=== PATIENT | female | born 1950 | race Caucasian/White ===

== ENCOUNTER → 2016-09-29 | Outpatient (CLI) | payer MEDICARE ==
--- NOTE | 2016-09-29 16:52 | REP ---
ABDOMINAL SERIES: Supine and erect views of the abdomen demonstrate no free air. There is no evidence of bowel obstruction. There is moderate fecal material in the right and transverse colon. I do not see significant small bowel dilatation. There are phleboliths in the pelvis. There are degenerative changes of the spine. An accompanying view of the chest demonstrates no acute infiltrate. The heart is normal in size. There is mild calcification of the thoracic aorta. IMPRESSION: Moderate fecal retention. Signed by Larry Cho MD 09/30/2016 05:10 P
== END ==
LOC: M LRY 11:58
PROVIDERS: ATTEND Family Medicine
DX: K59.01 Slow transit constipation (principal)
CPT/HCPCS: 74022; 80053; 84436; 84443; 84479; 85027; 85652; G0463

== ENCOUNTER → 2016-09-29 | Outpatient (REF) | payer MEDICARE ==
[2016-09-29 18:10] LABS: MEAN CORPUSCULAR HEMOGLOBIN 34.6 pg (27.0-33.0); MEAN CORPUSCULAR HGB CONC 34.4 g/dl (32.0-36.5); MEAN CORPUSCULAR VOLUME 100.5 fl (80.0-96.0); RED CELL DISTRIBUTION WIDTH 11.9 % (11.5-14.5); WHITE BLOOD COUNT 5.1 K/mm3 (4.0-10.0)
[2016-09-29 18:43] LABS: ALBUMIN 3.9 GM/DL (3.2-5.2); ALBUMIN/GLOBULIN RATIO 1.22 (1.00-1.93); ALKALINE PHOSPHATASE 69 U/L (45-117); ALT/SGPT 25 U/L (12-78); ANION GAP 9 MEQ/L (8-16); AST/SGOT 19 U/L (15-37); BILIRUBIN,TOTAL 0.2 MG/DL (0.2-1.0); BLOOD UREA NITROGEN 7 MG/DL (7-18); CARBON DIOXIDE LEVEL 31 MEQ/L (21-32); CHLORIDE LEVEL 102 MEQ/L (98-107); CREATININE FOR GFR 0.78 MG/DL (0.55-1.02); GLOMERULAR FILTRATION RATE > 60.0 (>45); GLUCOSE, FASTING 94 MG/DL (80-110); POTASSIUM SERUM 4.8 MEQ/L (3.5-5.1); SODIUM LEVEL 142 MEQ/L (136-145); T UPTAKE 34 % (30-39); THYROXINE (T4) 9.1 UG/DL (4.5-12.0); TOTAL PROTEIN 7.1 GM/DL (6.4-8.2)
== END ==
LOC: M SFHCLERA 11:43
PROVIDERS: ATTEND Family Medicine
DX: K59.01 Slow transit constipation (principal)

== ENCOUNTER → 2016-10-05 | Outpatient (REF) | payer MEDICARE ==
[2016-10-05 17:20] LABS: RETIC HEMOGLOBIN CONTENT CHr 34.2 PG (24-36); RETICULOCYTE % ADVIA2120 1.2 % (0.5-1.5)
[2016-10-05 17:33] LABS: VITAMIN B12 LEVEL 1499 PG/ML (247-911)
[2016-10-05 17:34] LABS: FOLATE > 24.0 NG/ML (>5.4)
== END ==
LOC: M SFHCLERA 10:12
PROVIDERS: ATTEND Family Medicine
DX: D75.89 Other specified diseases of blood and blood-forming organs (principal)

== ENCOUNTER → 2016-10-08 | Outpatient (REF) | payer MEDICARE ==
[2016-10-09 09:14] LABS: CONTROL LINE HPYORI INT CTR LINE PRESENT
== END ==
LOC: M SFHCLERA 11:29
PROVIDERS: ATTEND Family Medicine
DX: R10.9 Unspecified abdominal pain (principal)
CPT/HCPCS: 86677; G0463

== ENCOUNTER → 2016-10-14 | Outpatient (REF) | payer MEDICARE ==
[~2016-10-14] MED LIST: AMLO10TA2 PO; BAYE81TA7 PO; CALC1TAB21 PO; CARV12.5 PO; CLON1TAB PO; FOLI1TAB2 PO; LEVO25TA5 PO; LISI40TAB PO; MULTCAP8 PO; STOO100C PO; VENL150T PO; VENL1TAB35 PO; VITA100041 PO; VITA100L PO; ZETI10TA2 PO
[2016-10-14 16:58] LABS: ALBUMIN/GLOBULIN RATIO 1.25 (1.00-1.93); ALKALINE PHOSPHATASE 73 U/L (45-117); ALT/SGPT 31 U/L (12-78); AMYLASE 82 U/L (25-115); ANION GAP 8 MEQ/L (8-16); AST/SGOT 21 U/L (15-37); BILIRUBIN,TOTAL 0.2 MG/DL (0.2-1.0); BLOOD UREA NITROGEN 7 MG/DL (7-18); CALCIUM LEVEL 10.1 MG/DL (8.8-10.2); CARBON DIOXIDE LEVEL 31 MEQ/L (21-32); CHLORIDE LEVEL 101 MEQ/L (98-107); CREATININE FOR GFR 0.78 MG/DL (0.55-1.02); FREE T4 1.08 NG/DL (0.76-1.46); GLOMERULAR FILTRATION RATE > 60.0 (>45); GLUCOSE, FASTING 116 MG/DL (80-110); POTASSIUM SERUM 3.9 MEQ/L (3.5-5.1); SODIUM LEVEL 140 MEQ/L (136-145); TOTAL PROTEIN 7.2 GM/DL (6.4-8.2)
[2016-10-14 18:34] LABS: MEAN CORPUSCULAR HEMOGLOBIN 33.8 pg (27.0-33.0); MEAN CORPUSCULAR VOLUME 99.6 fl (80.0-96.0); RED CELL DISTRIBUTION WIDTH 11.9 % (11.5-14.5); WHITE BLOOD COUNT 4.6 K/mm3 (4.0-10.0)
[2016-10-14 21:35] LABS: EOSINOPHILS 5 % (0-5)
== END ==
LOC: M SFHCLERA 13:47
PROVIDERS: ATTEND Family Medicine
DX: R19.7 Diarrhea, unspecified (principal)
CPT/HCPCS: 80053; 81001; 82150; 83690; 84439; 84443; 85007; 85027; G0463

== ENCOUNTER → 2016-10-21 | Outpatient (CLI) | payer MEDICARE ==
--- NOTE | 2016-10-21 08:33 | REP ---
CT STUDY OF THE ABDOMEN AND PELVIS WITHOUT IV OR ORAL CONTRAST: HISTORY: Bilateral lower quadrant pain. No comparison CT studies. Comparison radiographs are from September 29, 2016. FINDINGS: Digital inventory planner radiograph demonstrates an unremarkable bowel gas pattern. The lung bases are essentially clear. The liver and the spleen are normal in size and homogeneous in texture. No adrenal lesion is seen on either side. Pancreas is normal in appearance. There is a descending duodenal diverticulum. No gallbladder abnormality is appreciated. There is no evidence of hydronephrosis or renal mass. No intrarenal calculus is observed on either side. No retroperitoneal mass or adenopathy is seen. Normal caliber aorta is seen with some vascular calcification. A normal appendix is seen retrocecal. Small and large intestinal bowel loops are normal in the abdomen and pelvis. No obstructive lesion is seen. No abdominal wall defect is observed. The patient is status post hysterectomy. No pelvic mass or adenopathy is seen. There is diverticulosis affecting the sigmoid colon. There is a pattern of mild mural thickening in the left colon involving the sigmoid rectosigmoid and rectum. This raises a question of enterocolitis. It is more diffuse than would be seen with diverticulitis. No bony destructive lesion is seen. There is evidence of an old healed fracture of the inferior pubic ramus on the right and there are osteoarthritic changes in the hips and degenerative spondylosis changes in the lumbar spine. There is evidence of significant central canal stenosis at L4-5 and L3-4. IMPRESSION: 1. Left colonic diverticulosis without CT evidence of diverticulitis. 2. Equivocal mural thickening diffusely in the distal colon question of inflammatory enterocolitis. 3. Degenerative spondylosis and central canal stenosis in the lumbar spine at L4-5 and L3-4.4. No urinary tract calculus or hydronephrosis seen. Signed by Javier Abraham MD 10/21/2016 09:40 A
--- NOTE | 2016-10-21 09:01 | REP ---
Thyroid sonography: History: Thyroid nodule. No comparison study. Findings: The thyroid isthmus is normal measuring 0.3 cm in thickness. Right lobe dimensions by ultrasound are 4.5 x 1.5 x 1.4 cm. Left lobe measures 4.1 x 1.1 x 1.4 cm. There is a solid 0.3 cm nodule in the right lobe and a solid 0.5 cm nodule in the left lobe of the gland. No other nodule is seen. No extra thyroid abnormality is seen. Impression: There is one very small subcentimeter nodule in each lobe of the thyroid. Otherwise negative. Signed by Javier Abraham MD 10/21/2016 09:40 A
--- NOTE | 2016-10-21 09:28 | REP ---
MRI LUMBAR SPINE WITHOUT CONTRAST: HISTORY: Back and bilateral hip pain. Decreased signal intensity on T2-weighted images is present in the lumbar intervertebral discs. The discs are decreased in height. These findings are consistent with disc degeneration. A diffuse disc bulge and small central disc protrusion are present at the L1-2 level. There is hypertrophy of the ligamenta flava and posterior articulating facets. These findings produce mild central canal stenosis. The L1 nerves exit the neural foramina without compression. A diffuse disc bulge is present at the L2-3 level. There is hypertrophy of the ligamenta flava and posterior articulating facets. These findings produce severe central canal stenosis. There is compression of the right L2 nerve in the neural foramen. The left L2 nerve exits the neural foramen without compression. A diffuse disc bulge is present at the L3-4 level. There is hypertrophy of the ligamenta flava and posterior articulating facets. These findings produce severe central canal stenosis. There is compression of the right L3 nerve in the neural foramen. The left L3 nerve exit the neural foramen without compression. A diffuse disc bulge is present at the L4-5 level. There is hypertrophy of the ligamenta flava and posterior articulating facets. There are 3 mm of grade 1 spondylolisthesis of L4 on 5. These findings produce severe central canal stenosis. There is compression of the left L4 nerve in the neural foramen. The right L4 nerve exits the neural foramen without compression. A diffuse disc bulge and small central disc protrusion are present at the L5-S1 level. There is minimal compression of the thecal sac. There is hypertrophy of the posterior articulating facets. There is compression of the left L5 nerve in the neural foramen. The right L5 nerve exits the neural foramen without compression. The conus medullaris is normal in appearance terminating at the level of the L1-2 intervertebral disc. Increased signal intensity on T2-weighted images is present in the end plates of the L1-S1 vertebral bodies. This represents degenerative change. There is scoliosis convex to the left. IMPRESSION: 1. Mild central canal stenosis at the L1-2 level secondary to disc bulge, disc protrusion, ligamentous and facet hypertrophy. 2. Severe central canal stenosis at the L2-3 and L3-4 levels secondary to disc bulge, ligamentous and facet hypertrophy. 3. Severe central canal stenosis at the L4-5 level secondary to disc bulge, ligamentous and facet hypertrophy and grade I spondylolisthesis. 4. Diffuse disc bulge and small central disc protrusion at the L5-S1 level with minimal thecal sac compression. Signed by Serafin Lawson MD 10/21/2016 09:43 A
== END ==
LOC: M RAD 07:14
PROVIDERS: ATTEND Family Medicine
DX: R10.9 Unspecified abdominal pain (principal); M47.27 Other spondylosis with radiculopathy, lumbosacral region; E04.1 Nontoxic single thyroid nodule; K57.30 Diverticulosis of large intestine without perforation or abscess without bleeding; M47.896 Other spondylosis, lumbar region; M48.06 Spinal stenosis, lumbar region; M51.27 Other intervertebral disc displacement, lumbosacral region

== ENCOUNTER → 2016-10-27 | Outpatient (CLI) | payer MEDICARE ==
[~2016-10-27] VITALS: Ht 157.5 cm; Wt 65.7 kg
[~2016-10-27] MED LIST changes: +LIDOCAINE 2% INJ 100 MG/5 ML SDV (FOR ANES.) As Ordered ONE; +NS 1,000 ML IV SCH; +PROPOFOL 200 MG/20 ML VIAL As Ordered ONE
--- NOTE | 2016-10-27 08:17 | ROOR ---
Patient Name: Juani Kilgore Procedure Date: 10/27/2016 8:03 AM Date of : 1950 Age: 66 Room: [facility] Gender: Female Note Status: Finalized Procedure: Upper GI endoscopy Indications: Surveillance for malignancy due to personal history of Hilliard's esophagus, Heartburn Providers: Kenneth FREEMAN MD Referring MD: Patrica HARTMAN MD Requesting Provider: Medicines: Sedation Required Anesthesia Staff Assistance Complications: No immediate complications. Procedure: Pre-Anesthesia Assessment: - The heart rate, respiratory rate, oxygen saturations, blood pressure, adequacy of pulmonary ventilation, and response to care were monitored throughout the procedure. The Endoscope was introduced through the mouth, and advanced to the second part of duodenum. The upper GI endoscopy was accomplished without difficulty. The patient tolerated the procedure well. Findings: The examined esophagus was normal. The Z-line was variable and was found 40 cm from the incisors. This was biopsied with a cold forceps for histology. The entire examined stomach was normal. The examined duodenum was normal. Biopsies for histology were taken with a cold forceps for evaluation of celiac disease. Impression: - Normal esophagus. Z-line variable, 40 cm from the incisors. Biopsied. - Normal stomach. - Normal examined duodenum. Biopsied. Recommendation: - Follow an antireflux regimen. - Telephone endoscopist for pathology results in 2 weeks. Kenneth Freeman MD Kenneth FREEMAN MD 10/27/2016 8:17:29 AM This report has been signed electronically. Number of Addenda: 0 Note Initiated On: 10/27/2016 8:03 AM Estimated Blood Loss: Estimated blood loss: none.
--- NOTE | 2016-10-27 08:35 | ROOR ---
Patient Name: Juani Kilgore Procedure Date: 10/27/2016 8:04 AM Date of : 1950 Age: 66 Room: [facility] Gender: Female Note Status: Finalized Procedure: Colonoscopy Indications: Generalized abdominal pain, Change in bowel habits Providers: Kenneth FREEMAN MD Referring MD: Patrica HARTMAN MD Requesting Provider: Medicines: Monitored Anesthesia Care Complications: No immediate complications. Procedure: Pre-Anesthesia Assessment: - The heart rate, respiratory rate, oxygen saturations, blood pressure, adequacy of pulmonary ventilation, and response to care were monitored throughout the procedure. The Colonoscope was introduced through the anus and advanced to 3 cm into the ileum. The colonoscopy was performed without difficulty. The patient tolerated the procedure well. The quality of the bowel preparation was good. Findings: The perianal and digital rectal examinations were normal. (Exam: Complete, Prep: Good or Excellent.) A 4 mm polyp was found in the sigmoid colon. The polyp was sessile. The polyp was removed with a cold snare. Resection and retrieval were complete. A few small-mouthed diverticula were found in the sigmoid colon. The exam was otherwise normal throughout the examined colon. The terminal ileum appeared normal. Biopsies for histology were taken with a cold forceps for evaluation of microscopic colitis. Impression: - (Exam: Complete, Prep: Good or Excellent.) - One 4 mm polyp in the sigmoid colon, removed with a cold snare. Resected and retrieved. - Mild diverticulosis in the sigmoid colon. - Small internal Hemorrhoids. - The colon was otherwise normal. - The examined portion of the ileum was normal. - Biopsies were taken with a cold forceps for evaluation of microscopic colitis. Recommendation: - Use fiber, for example Citrucel, Fibercon, Konsyl or Metamucil. - Telephone endoscopist for pathology results in 2 weeks. - If the pathology report reveals adenomatous tissue, then repeat the colonoscopy for surveillance in 5 years. Kenneth Fremean MD Kenneth FREEMAN MD 10/27/2016 8:34:52 AM This report has been signed electronically. Number of Addenda: 0 Note Initiated On: 10/27/2016 8:04 AM Estimated Blood Loss: Estimated blood loss: none.
[2016-10-27 09:10] VITALS: BP 109/69
== END ==
LOC: M OPP 07:10
PROVIDERS: ATTEND Internal Medicine Gastroenterology
DX: D12.5 Benign neoplasm of sigmoid colon (principal); K57.30 Diverticulosis of large intestine without perforation or abscess without bleeding; R10.84 Generalized abdominal pain; R19.4 Change in bowel habit; K22.70 Barrett's esophagus without dysplasia; K22.8 Other specified diseases of esophagus; R12 Heartburn; I10 Essential (primary) hypertension; E07.9 Disorder of thyroid, unspecified; F32.9 Major depressive disorder, single episode, unspecified; F41.9 Anxiety disorder, unspecified; F17.200 Nicotine dependence, unspecified, uncomplicated; Z88.8 Allergy status to other drugs, medicaments and biological substances; Z80.0 Family history of malignant neoplasm of digestive organs; Z80.1 Family history of malignant neoplasm of trachea, bronchus and lung; Z80.8 Family history of malignant neoplasm of other organs or systems; Z79.899 Other long term (current) drug therapy

== ENCOUNTER → 2016-11-16 | Outpatient (CLI) | payer MEDICARE ==
[~2016-11-16] MED LIST changes: -LIDOCAINE 2% INJ 100 MG/5 ML SDV (FOR ANES.) As Ordered ONE; -NS 1,000 ML IV SCH; -PROPOFOL 200 MG/20 ML VIAL As Ordered ONE
--- NOTE | 2016-11-16 16:02 | REP ---
Clinical: Pain. Technique: AP, lateral, bilateral oblique views of the left hand. Findings: Moderate osteoarthritic degenerative changes include osteophytosis, with subchondral sclerosis and joint space narrowing primarily involving the first, second, third distal interphalangeal joints. Less advanced degenerative changes noted throughout the remainder of the distal interphalangeal joints, interphalangeal joints and predominate the first and second carpometacarpal joints. No acute fracture or dislocation. Impression: Moderate osteoarthritic degenerative changes. Signed by Umesh Gonzales MD 11/16/2016 03:54 P
== END ==
LOC: M LRY 14:43
PROVIDERS: ATTEND Family Medicine
DX: M65.312 Trigger thumb, left thumb (principal); M19.042 Primary osteoarthritis, left hand
CPT/HCPCS: 73130; G0463

== ENCOUNTER → 2016-12-14 | Outpatient (REF) | payer MEDICARE ==
[2016-12-14 18:26] LABS: FREE T4 1.04 NG/DL (0.76-1.46)
[2016-12-14 19:43] LABS: MEAN CORPUSCULAR HEMOGLOBIN 33.4 pg (27.0-33.0); MEAN CORPUSCULAR HGB CONC 32.9 g/dl (32.0-36.5); MEAN CORPUSCULAR VOLUME 101.4 fl (80.0-96.0); WHITE BLOOD COUNT 6.9 K/mm3 (4.0-10.0)
[2016-12-15 09:15] LABS: FOLATE > 24.0 NG/ML; VITAMIN B12 LEVEL 901 PG/ML
== END ==
LOC: M SFHCLERA 14:04
PROVIDERS: ATTEND Family Medicine
DX: M79.1 Myalgia (principal)

== ENCOUNTER → 2016-12-14 | Outpatient (CLI) | payer MEDICARE ==
--- NOTE | 2016-12-14 15:41 | REP ---
Chest two views HISTORY: Weight loss Comparison: 09/29/2016 The lungs are clear. The heart is normal in size. The pulmonary vasculature is normal in appearance. The bony structure is intact. IMPRESSION: No acute disease. Signed by Serafin Lawson MD 12/14/2016 03:32 P
== END ==
LOC: M LRY 14:59
PROVIDERS: ATTEND Family Medicine
DX: R63.4 Abnormal weight loss (principal)
CPT/HCPCS: 71020; 82607; 82746; 84439; 84443; 85027; 85652; 86038; 86140; G0463

== ENCOUNTER → 2016-12-15 | Outpatient (REF) | payer MEDICARE | LOC: M SFHCLERA 07:56 | PROVIDERS: ATTEND Family Medicine | DX: D75.89 Other specified diseases of blood and blood-forming organs (principal); Z53.29 Procedure and treatment not carried out because of patient's decision for other reasons ==

== ENCOUNTER → 2016-12-17 | Outpatient (CLI) | payer MEDICARE ==
--- NOTE | 2016-12-22 14:23 | REPMRS ---
Patient History The patient states she has not had a clinical breast exam in over a year. Patient is postmenopausal. Family history of colorectal cancer in paternal grandmother. Digital Mammo Screening Bilat: December 17, 2016 - Exam #: [id number] Bilateral CC and MLO view(s) were taken. Technologist: Kim Evans, Technologist Prior study comparison: October 02, 2015, digital bilateral screening mammo, performed at [facility]. July 30, 2014, digital bilateral screening mammo, performed at [facility]. FINDINGS: There are scattered fibroglandular densities. There has been no change in the appearance of the mammogram from the prior studies. There is a mild amount of residual fibroglandular tissue which is fairly symmetric. There is no interval development of dominant mass, architectural distortion, or clustered microcalcification suggestive of malignancy. There are scattered, small, benign calcifications of doubtful clinical significance. Scattered lymph nodes are seen in the axillae. No significant changes when compared with prior studies. ASSESSMENT: BI-RADS/ACR category 2 mammogram. Benign finding(s). Recommendation Routine screening mammogram in 1 year (for women over age 40). This mammogram was interpreted with the aid of an FDA-approved computer-aided dectection system. A. Negative x-ray reports should not delay biopsy if a dominant or clinically suspicious mass is present. B. Four to eight percent of cancers are not identified by mammography. C. Adenosis and dense breast may obscure an underlying neoplasm. Electronically Signed By: Austin Lindsey MD 12/22/16 [id number]
== END ==
LOC: M RAD 11:17
PROVIDERS: ATTEND Family Medicine
DX: Z12.31 Encounter for screening mammogram for malignant neoplasm of breast (principal); Z78.0 Asymptomatic menopausal state; R92.8 Other abnormal and inconclusive findings on diagnostic imaging of breast

== ENCOUNTER → 2017-01-12 | Outpatient (CLI) | payer MEDICARE ==
--- NOTE | 2017-01-27 01:10 | ECWPNPC ---
PATIENT NAME: FRED MICHELLE : 1950 GENDER: FEMALE VISIT DATE: 01/12/2017 DISCHARGE DATE: 01/12/17 1321 VISIT LOCKED DATE TIME: PHYSICIAN: AMADOU STINSON RESOURCE: AMADOU STINSON REASON FOR APPOINTMENT 1. CHRONIC BODY PAIN HISTORY OF PRESENT ILLNESS NEW PATIENT CONSULT: WHEN DID YOUR PAIN FIRST START? . BRIEFLY DESCRIBE HOW YOUR PAIN STARTED? . HOW DOES YOUR PAIN CHANGE WITH TIME? . DOES YOUR PAIN AWAKEN YOU FROM SLEEP? . HOW MANY HOURS OF SLEEP DO YOU NORMALLY GET? . ANY DIAGNOSTIC TESTING? . FACILITY WHERE TESTS WERE DONE? ____. PAIN TREATMENT TREATMENT YES CANCER HAVE YOU EVER HAD ANY TYPE OF CANCER?NO NO. PAIN SCREENING: PATIENT HAS A COMPLAINT OF ACUTE OR CHRONIC PAIN :YES FALL RISK SCREENING: SCREENING :NO FALLS IN THE PAST YEAR NICOLAS INVENTORY: QUESTIONNAIRE ASSESSEDYES SCORE VALUE CALCULATED YES SCORE: DENIES SUICIDAL OR HOMICIDAL IDEATION TODAY'S VISIT: NOTES: REFERRED TODAY BY FOR CHRONIC GENERALIZED PAIN BY DR TERESA HARTMAN.HAD NO IMPROVEMENT WITH PHYSICAL THERAPY LEG EXERCISES MADE WORST..ONSET WAS ABOURT 3 YEARS AGO AFTER FX OF PELVIS ONE YEAR AGO BEGAN HAVING INTENSE DEEP PAIN IN LOW BACK AND PELVIS WITH N/T TO TOPS OF LEGS. NONE TO FEEET OR ANKLES. NEEDS TO LEAN ON CART AT STORE. FEELS WEAKNESS ALL OVER. NOTES PAIN IN HIPS WHEN STEPPING.DOES NOT FEEL STEADY - HOLDS ON. FELL ON 01/10/17 WHILE WALKING ON SIDEWALK.HIT RIGHT SIDE. HAS MORE RECENTLY NOTED PAIN IN SHOULDERS AND ELBOWS,. NOT SLEEPING WELL - 3 HOURS. IN NITE FEELS DIZZY AND WEAK. IS ATTENDING THE Y AND SWIMMING AND WALKING. HAD SEVERE CONSTIP IN JUL/AUG THENHAD 3-4 WEEKS OF GI BUG. HAS HAD OCC EPS LOC.[employer] NITE IS WORST. NO PREVIOUS BACK TROUBLE. CURRENT MEDICATIONS TAKING CARVEDILOL 12.5 MG TABLET ORALLY TWICE A DAY TAKING AMLODIPINE BESYLATE 10 MG TABLET 1 TABLET ORALLY ONCE A DAY TAKING CLONAZEPAM 1 MG TABLET 1 TABLET ORALLY TWICE A DAY TAKING VENLAFAXINE HCL ER 150 MG CAPSULE EXTENDED RELEASE 24 HOUR 1 CAPSULE WITH FOOD ORALLY ONCE A DAY TAKING ASPIRIN 81 MG TABLET CHEWABLE 1 TABLET ORALLY ONCE A DAY TAKING CALCIUM + D3 600-200 MG-UNIT TABLET ORALLY TAKING VITAMIN D3 1000 UNIT CAPSULE 1 CAPSULE ORALLY ONCE A DAY TAKING DULCOLAX STOOL SOFTENER 100 MG CAPSULE 1 CAPSULE NEEDED ORALLY ONCE A DAY TAKING MULTI FOR HER - TABLET ORALLY TAKING LISINOPRIL 40 MG TABLET 1 TABLET ORALLY ONCE A DAY TAKING ZETIA 10 MG TABLET 1 TABLET ORALLY ONCE A DAY TAKING OMEPRAZOLE 20 MG CAPSULE DELAYED RELEASE 1 CAPSULE ORALLY BID TAKING LOPERAMIDE HCL 2 MG TABLET 1 TABLET AFTER WATERY BOWEL MOVEMENT ORALLY MAY REPEAT IN 2 HOURS IF INITIAL DOSE WAS INEFFECTIVE TAKING CLONIDINE HCL 0.1 MG TABLET 1 TABLET AT BEDTIME ORALLY NEEDED? TAKING PROZAC 10 MG CAPSULE 1 CAPSULE IN THE MORNING ORALLY ONCE A DAY NOT-TAKING TIZANIDINE HCL 2 MG TABLET 1 TABLET NEEDED ORALLY BEFORE BEDTIME NOT-TAKING MIRALAX - POWDER 17 GRAMS ORALLY DAILY UNKNOWN LEVOTHYROXINE SODIUM 25 MCG TABLET 1 TABLET ON AN EMPTY STOMACH IN THE MORNING ORALLY ONCE A DAY MEDICATION LIST REVIEWED AND RECONCILED WITH THE PATIENT PAST MEDICAL HISTORY HTN (ETT 06/11 NEG) ANXIETY DEPRESSION HYPOTHYROID WITH 2 SMALL CYSTS HX OF C.DIFF TOBACCO ABUSE ETOH ABUSE IN REMISSION ALLERGIES STATINS (FOR ALLERGY USE ONLY): ACHY, PAINFUL MUSCLES: ALLERGY MAGNESIUM: DIARRHEA: ALLERGY TRAZODONE HCL: MUSCLE ACHES: ALLERGY SURGICAL HISTORY TONSILLECTOMY TUBAL LIGATION HYSTERECTOMY COLONOSCOPY/ENDOSCOPY FAMILY HISTORY FATHER: , DIAGNOSED WITH CANCER MOTHER: , DIAGNOSED WITH HEART DISEASE, OTHER PATERNAL GRAND FATHER: , DIAGNOSED WITH CANCER PATERNAL GRAND MOTHER: , DIAGNOSED WITH CANCER MATERNAL GRAND FATHER: , DIAGNOSED WITH HEART DISEASE MATERNAL GRAND MOTHER: , DIAGNOSED WITH CANCER 1 BROTHER(S) , 1 SISTER(S) . 1 SON(S) , 1 DAUGHTER(S) - HEALTHY. FATHER: SPINE CAMOTHER: ALZHEIMERSPATERNAL GF: BRAIN AND LUNG CAPATERNAL GM: COLON CAMATERNAL GM: CA UNKNOWNSISTER: ARTHRITISBROTHER: BRAIN AND LUNG CA. SOCIAL HISTORY GENERAL: TOBACCO USE ARE YOU A:CURRENT SMOKER HOW MANY CIGARETTES A DAY DO YOU SMOKE?6-10 HOW SOON AFTER YOU WAKE UP DO YOU SMOKE YOUR FIRST CIGARETTE?6-30 MIN HOW OFTEN DO YOU SMOKE CIGARETTES?EVERY DAY PATIENT COUNSELED ON THE DANGERS OF TOBACCO USE AND URGED TO QUIT:01/12/2017 ARE YOU INTERESTED IN QUITTING?THINKING ABOUT QUITTING COUNSELED THE PATIENT ON SMOKING CESSATION, EDUCATION [id number]/18/2017 ALCOHOL SCREENING POINTS0 INTERPRETATIONNEGATIVE CAFFEINE CAFFEINE USE?NO OCCUPATION: RETIRED. DIET: REGULAR. EXERCISE: WALKS, SWIMS. MARITAL STATUS: . OTHERS AT HOME: NONE. SI[facility] [id number] ZOROASTRIANISM EDUCATION LEVEL OF EDUCATION:NOT FINISHED [facility] PFS, CLERGY, PUBLIC HEALTH REFERRALS CLERGY REFERRAL NEEDED?NO WAS THE PROVIDER NOTIFIED OF ANY PERTINENT INFO?NO PFS REFERRAL NEEDED?NO PUBLIC HEALTH REFERRAL NEEDED?NO PATIENT: ____. HOSPITALIZATION/MAJOR DIAGNOSTIC PROCEDURE SEE SURGERIES FRACTURED PELVIS CHILDBIRTH REVIEW OF SYSTEMS CONSTITUTIONAL: ANY CHANGE IN YOUR MEDICAL CONDITION? NO . CHILLS NO . FEVER NO . INFECTION: DO YOU HAVE NEW INFECTIONS? NO . DO YOU HAVE HISTORY OF MRSA? NO . MUSCULOSKELETAL: ANY NEW PATTERNS OF PAIN OR NUMBNESS? NO . SYTEMIC LUPUS NO . FRACTURE FELL IN SNOW - FX PELVIS . GASTROENTEROLOGY: ANY NEW CHANGE IN BOWEL CONTROL? NO . BARRETTS ESOPHAGUS NO . CIRRHOSIS NO . HEPATITIS NO . LIVER FAILURE NO . ACID REFLUX NO . UNEXPLAINED WEIGHT LOSS HAS LOST 30 LBS WITH GI BUG. APPETITE NOT GOOD . GENITOURINARY: ANY NEW CHANGE IN BLADDER CONTROL? NO . IS THERE A CHANCE YOU COULD BE ? NO . HEMATOLOGY/LYMPH: DO YOU TAKE ANY BLOOD THINNERS? (FOR EXAMPLE- COUMADIN, PLAVIX, AGGRENOX, PLATEL, PRADAXA, OR XARELTO) NO . WHEN WAS YOUR LAST DOSE? DATE: TIME: . LOW PLATELET COUNT NO . SICKLE CELL DISEASE NO . VON WILLIEBRANDS NO . FACTOR V LEIDEN NO . THALLASEMIA NO . ANEMIA NO . EASY BRUISING NO . NEUROLOGY: HAVE YOU FALLEN IN THE PAST 6 MONTHS? NO . ANY NEW EXTREMITY NUMBNESS OR WEAKNESS? NO . HEAD INJURY NO . DEMENTIA NO . CEREBRAL PALSY NO . MULTIPLE SCLEROSIS NO . DIZZINESS NO . HEADACHE NO . STROKES NO . VERTIGO NO . CARDIOLOGY: DO YOU HAVE A PACEMAKER OR DEFIBRILLATOR? NO . ANGINA NO . HEART ATTACK NO . HEART SURGERY NO . CONGESTIVE HEART FAILURE/FLUID OVERLOAD NO . CHEST PAIN NO . HIGH BLOOD PRESSURE NO . IRREGULAR HEART BEAT NO . RESPIRATORY: HAVE YOU BEEN SICK IN THE PAST WEEK? NO . FEVER NO . FLU LIKE SYMPTOMS? NO . CPAP NO . BYPAP NO . ASTHMA NO . EMPHYSEMA NO . CHRONIC LUNG DISEASES NO . SHORTNESS OF BREATH ON EXERTION NO . DO YOU USE ANY TYPE OF TOBACCO (SMOKE, SMOKELESS, CHEW)? NO . COUGH NO . SNORING NO . INTEGUMENTARY: DO YOU HAVE ANY RASHES OR OPEN SORES? NO . ALLERGIC/IMMUNO: ARE YOU ALLERGIC TO SHELLFISH OR IV DYE? NO . ANY NEW ALLERGIES? NO . PSYCHIATRIC: DO YOU HAVE THOUGHTS OF HURTING YOURSELF OR SOMEONE ELSE? NO . ARE YOU ABUSED, NEGLECTED, OR IN AN UNSAFE ENVIRONMENT? NO . ENDOCRINOLOGY: ARE YOU DIABETIC? NO . THYROID DISORDER HYPOTHYROID ON REPLACEMENT - HAS 2 SMALL CYSTS . OTHER: DO YOU NEED ANY PRESCRIPTIONS? NO . IF YES, PLEASE LIST: ____ . ANY NEW PROBLEMS WITH YOUR MEDICATIONS? NO . WHEN DID YOU LAST EAT? ____ . WHEN DID YOU LAST DRINK? ____ . WHAT DID YOU LAST DRINK? ____ . NAME OF PERSON DRIVING YOU HOME? ____ . DO YOU HAVE ANY OTHER QUESTIONS OR CONCERNS NO . REVIEWED BY: PROVIDER: AMADOU MÁRQUEZ . VITAL SIGNS WT 141.4 LBS, HT 62.5 IN, BMI 25.45 INDEX, BP 115/69 MM HG, HR 73 /MIN, RR 16 /MIN, TEMP 97.7 F, OXYGEN SAT % 96%, NA INITIALS SC 11:46. EXAMINATION GENERAL EXAMINATION: GENERAL APPEARANCE:THIN, DUSKY COLORATION. PSYCHALERT , ORIENTED X 3 , HARD TO KEEP ON TARGET. HEENT:NORMOCEPHALIC, NO LYMPHADENOPATHY, NO THYROMEGLY. LUNGS:CLEAR TO AUSCULTATION BILATERALLY, NO WHEEZES, RALES OR RHONCHI. HEART:NORMAL S1S2, NO MURMURS, CLICK OR RUBS. ABDOMEN:SOFT, NON-TENDER/NON-DISTENDED, BOWEL SOUNDS PRESENT. MUSCULOSKELETAL:ABLE TO FLEX SPINE TO 30 DEGREES, , EXTEND TO 5 DEGREES, ROTATE WITH DIFF TO LEFT. SLR POSITIVE AT 30 DEGREES ON RIGHT, NEGATIVE ON LEFT. PAIN WITH PATRICKS TESTING ON RIGHT, NEGATIVE ON LEFT. LEG LENGTH EQUAL. , MUSCLE STRENGTH TESTING 5/5 BILATERAL UPPER AND LOWER EXTREMITIES. RISES QUICKLY TO AN UPRIGHT POSITION BUT UNSTEADY ON FEET. . NEUROLOGIC EXAM:DTR'S 2+ BILATERAL UPPER EXTREMITIES, 4+ BILATERAL LOWER EXTREMITIES WITH CLONUS. PLANTAR RESPONSE IS EQUIVICAL. NO SENSORY DEFICEIT ELICITED TO LIGHT TOUCH. DIAGNOSTIC TESTS REVIEWEDCT STUDY OF ABDOMEN AND PELVIS WITH AND WITHOUT IV CONTRAST DEMONSTRATED OLD HEALED FRACTURE OF INFERIOR PUBIC RAMUS, OSTEOARTHRITIC CHANGES IN THE HIPS AND DEGENERATIVE SPONDYLOSIS CHANGES IN THE LUMBAR SPINE. THERE IS EVIDENCE OF SIGNIFICANT CENTRAL CANAL STENOSIS AT. L4-5 AND L3-4.MRI OF LUMBAR SPINE COMPLETED 10/21/16 DEMONSTRATED MILD CENTRAL CANAL STENOSIS AT L1-2 LEVEL SECONDARY TO DISC BULGE, DISC PROTRUSION LIGAMENTOUS AND FACET HYPERTROPHY. 2. SEVERE CENTRAL CANAL STENOSIS AT L2-3 AND L3-4 LEVEL SECONDARY TO DISC BULGE LIGAMENTOUS AND FACET HYPERTROPHY. 3. SEVERE CENTRAL CANAL STENOSIS AT THE L4-5 LEVEL SECONDARY TO DISC BULGE LIGAMENTOUS AND FACET HYPERTROPHY AND GRADE 1 SPONDYLOLISTHESIS. 4. DIFFUSE DISC BULGE AND SMALL CENTRAL PROTRUSION AT THE L5-S1 LEVEL WITH MINIMAL THECAL SAC COMPRESSION. 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 RECOMMEND REMOVING ALL THROW RUGS. 2. RECOMMEND NIGHT LIGHTS 3. RECOMMEND WEARING RUBBER SOLED SHOES AND TO NOT GO BAREFOOT. 4.. ADVISED TO CHANGE POSITION SLOWLY FROM SUPINE TO STANDING TO AVOID DIZZINESS. , # 226 TOBACCO USE SCREENING/INTERVENTION: PATIENT CURRENTLY USED TOBACCO. WAS OFFERED SMOKING CESSATION FOR GUIDANCE IN QUITTING THROUGH THE [facility] QUITS PROGRAM AND [facility].BMI LESS THAN 22 WITH RECENT WEIGHT LOSS - IS FOLLOWING THIS CLOSELY WITH PCP. PROCEDURE CODES FA211 ESTABILISHED PATIENT [facility] FACILITY CHARGE G8706 BP SCR PRFRM RCMDD DEFIND SCR INTVL G8418 BMI < 22 CALCUATE W/FOLLOWUP G8730 PAIN ASSESS POS TOOL F/U PLAN DOC 3016F PT SCRND UNHLTHY [place] USE 1124F ACP DISCUSS-NO DSCNMKR DOCD 0518F FALL PLAN OF CARE DOCD G3670 DOC MEDS VERIFIED W/[place] 3288F FALL RISK ASSESSMENT DOCD 0954F PT TOBACCO SCREEN RCVD TLK DISPOSITION & COMMUNICATION FOLLOW UP AFTER INJECTION (REASON: CHECK AUTH JUNITO THERAPEUTIC LUMBAR FACET BLOCK) ELECTRONICALLY SIGNED BY ESDRAS ANDERSON ON 01/26/2017 AT 02:00 PM EDT DISCLAIMER : THIS IS A VISIT SUMMARY EXTRACTED FROM THE [employer] CHART. IT IS NOT A COPY OF THE [employer] PROGRESS NOTE. MTDD
== END ==
LOC: M PAIN 11:20
PROVIDERS: ATTEND Nurse Practitioner Family
DX: G89.29 Other chronic pain (principal); M48.06 Spinal stenosis, lumbar region; M12.88 Other specific arthropathies, not elsewhere classified, other specified site; M25.552 Pain in left hip; M25.551 Pain in right hip; M43.16 Spondylolisthesis, lumbar region; I10 Essential (primary) hypertension; F41.9 Anxiety disorder, unspecified; F32.9 Major depressive disorder, single episode, unspecified; E03.9 Hypothyroidism, unspecified; F17.200 Nicotine dependence, unspecified, uncomplicated; F10.21 Alcohol dependence, in remission; Z88.8 Allergy status to other drugs, medicaments and biological substances; Z79.82 Long term (current) use of aspirin; Z79.899 Other long term (current) drug therapy

== ENCOUNTER → 2017-01-25 | Outpatient (CLI) | payer MEDICARE ==
[~2017-01-25] MED LIST changes: +BUPIVACAINE HCL 0.25% 30 ML VIAL As Ordered ONE; +ISOVUE-M 300 61% 15ML VIAL (Q9967) As Ordered ONE; +LIDOCAINE 1% SDV INJ 30 ML VIAL As Ordered ONE; +TRIAMCINOLONE ACETONIDE SUSP 40 MG/ML VIAL (J3301) As Ordered ONE; +diazePAM 5 MG TAB As Ordered ONE; +oxyCODONE 5MG TAB As Ordered ONE
--- NOTE | 2017-01-25 17:10 | REP ---
FACET BLOCK: The images were reviewed with Dr. Cho. The patient has a history of low back pain. The portable C-Arm was provided in the OR for Dr. Arita for fluoroscopic guidance. Two intraoperative fluoroscopic spot films were obtained for needle placement verification for bilateral lumbar facet injection. The films are on the PACs system and are available for review. 11 seconds of fluoroscopy time was utilized for this procedure. Reviewed by NATTY Benjamin 01/26/2017 05:40 PEdited and Signed by Larry Cho MD 01/26/2017 07:42 P
--- NOTE | 2017-01-31 23:47 | ECWPNPC ---
PATIENT NAME: FRED MICHELLE : 1950 GENDER: FEMALE VISIT DATE: 01/25/2017 DISCHARGE DATE: 01/25/17 1419 VISIT LOCKED DATE TIME: PHYSICIAN: POOJA KENNEY RESOURCE: POOJA KENNEY REASON FOR APPOINTMENT 1. JUNITO THER FACET BLOCK LUMBAR HISTORY OF PRESENT ILLNESS HISTORY OF PRESENT ILLNESS: PAIN THE PATIENT DESCRIBES THE PAIN... FALL RISK SCREENING: SCREENING :NO FALLS IN THE PAST YEAR CURRENT MEDICATIONS TAKING CARVEDILOL 12.5 MG TABLET ORALLY TWICE A DAY, NOTES: 01/25/17599 TAKING AMLODIPINE BESYLATE 10 MG TABLET 1 TABLET ORALLY ONCE A DAY, NOTES: 01/25/17599 TAKING CLONAZEPAM 1 MG TABLET 1 TABLET ORALLY TWICE A DAY, NOTES: 01/25/17599 TAKING VENLAFAXINE HCL ER 150 MG CAPSULE EXTENDED RELEASE 24 HOUR 1 CAPSULE WITH FOOD ORALLY ONCE A DAY, NOTES: 01/25/17599 TAKING ASPIRIN 81 MG TABLET CHEWABLE 1 TABLET ORALLY ONCE A DAY, NOTES: 01/24/171929 TAKING CALCIUM + D3 600-200 MG-UNIT TABLET ORALLY , NOTES: 01/25/17599 TAKING VITAMIN D3 1000 UNIT CAPSULE 1 CAPSULE ORALLY ONCE A DAY, NOTES: 01/25/17599 TAKING MULTI FOR HER - TABLET ORALLY , NOTES: 01/25/17599 TAKING LISINOPRIL 40 MG TABLET 1 TABLET ORALLY ONCE A DAY, NOTES: 01/24/171929 TAKING ZETIA 10 MG TABLET 1 TABLET ORALLY ONCE A DAY, NOTES: 01/24/171929 TAKING CLONIDINE HCL 0.1 MG TABLET 1 TABLET AT BEDTIME ORALLY NEEDED?, NOTES: > 2 MONTHS TAKING PROZAC 10 MG CAPSULE 1 CAPSULE IN THE MORNING ORALLY ONCE A DAY, NOTES: 01/24/171929 TAKING BACLOFEN 10 MG TABLET 1 TABLET WITH FOOD OR MILK ORALLY BEFORE BEDTIME, NOTES: 01/24/17599 NOT-TAKING DULCOLAX STOOL SOFTENER 100 MG CAPSULE 1 CAPSULE NEEDED ORALLY ONCE A DAY, NOTES: > 2 MONTHS NOT-TAKING OMEPRAZOLE 20 MG CAPSULE DELAYED RELEASE 1 CAPSULE ORALLY BID NOT-TAKING LOPERAMIDE HCL 2 MG TABLET 1 TABLET AFTER WATERY BOWEL MOVEMENT ORALLY MAY REPEAT IN 2 HOURS IF INITIAL DOSE WAS INEFFECTIVE NOT-TAKING TIZANIDINE HCL 2 MG TABLET 1 TABLET NEEDED ORALLY BEFORE BEDTIME NOT-TAKING MIRALAX - POWDER 17 GRAMS ORALLY DAILY UNKNOWN LEVOTHYROXINE SODIUM 25 MCG TABLET 1 TABLET ON AN EMPTY STOMACH IN THE MORNING ORALLY ONCE A DAY MEDICATION LIST REVIEWED AND RECONCILED WITH THE PATIENT PAST MEDICAL HISTORY HTN (ETT 06/11 NEG) ANXIETY DEPRESSION HYPOTHYROID WITH 2 SMALL CYSTS HX OF C.DIFF TOBACCO ABUSE ETOH ABUSE IN REMISSION ALLERGIES STATINS (FOR ALLERGY USE ONLY): ACHY, PAINFUL MUSCLES: ALLERGY MAGNESIUM: DIARRHEA: ALLERGY TRAZODONE HCL: MUSCLE ACHES: ALLERGY REVIEW OF SYSTEMS CONSTITUTIONAL: ANY CHANGE IN YOUR MEDICAL CONDITION? NO . CHILLS NO . FEVER NO . INFECTION: DO YOU HAVE NEW INFECTIONS? NO . DO YOU HAVE HISTORY OF MRSA? NO . MUSCULOSKELETAL: ANY NEW PATTERNS OF PAIN OR NUMBNESS? NO . GASTROENTEROLOGY: ANY NEW CHANGE IN BOWEL CONTROL? NO . GENITOURINARY: ANY NEW CHANGE IN BLADDER CONTROL? NO . IS THERE A CHANCE YOU COULD BE ? NO . HEMATOLOGY/LYMPH: DO YOU TAKE ANY BLOOD THINNERS? (FOR EXAMPLE- COUMADIN, PLAVIX, AGGRENOX, PLATEL, PRADAXA, OR XARELTO) NO . WHEN WAS YOUR LAST DOSE? DATE: TIME: . NEUROLOGY: HAVE YOU FALLEN IN THE PAST 6 MONTHS? YES . ANY NEW EXTREMITY NUMBNESS OR WEAKNESS? NO . CARDIOLOGY: DO YOU HAVE A PACEMAKER OR DEFIBRILLATOR? NO . RESPIRATORY: HAVE YOU BEEN SICK IN THE PAST WEEK? NO . FEVER NO . FLU LIKE SYMPTOMS? NO . COUGH NO . INTEGUMENTARY: DO YOU HAVE ANY RASHES OR OPEN SORES? NO . ALLERGIC/IMMUNO: ARE YOU ALLERGIC TO SHELLFISH OR IV DYE? NO . ANY NEW ALLERGIES? NO . PSYCHIATRIC: DO YOU HAVE THOUGHTS OF HURTING YOURSELF OR SOMEONE ELSE? NO . ARE YOU ABUSED, NEGLECTED, OR IN AN UNSAFE ENVIRONMENT? NO . ENDOCRINOLOGY: ARE YOU DIABETIC? NO . OTHER: DO YOU NEED ANY PRESCRIPTIONS? NO . IF YES, PLEASE LIST: ____ . ANY NEW PROBLEMS WITH YOUR MEDICATIONS? NO . WHEN DID YOU LAST EAT? 01/24/17 2400____ . WHEN DID YOU LAST DRINK? ____01/25/17 0730 . WHAT DID YOU LAST DRINK? ____GINGER KERRI . NAME OF PERSON DRIVING YOU HOME? ____DARLENE . DO YOU HAVE ANY OTHER QUESTIONS OR CONCERNS NO . REVIEWED BY: PROVIDER: . VITAL SIGNS WT 138 LBS, HT 62.5 IN, BMI 24.84 INDEX, BP 119/71 MM HG, HR 63 /MIN, RR 16 /MIN, TEMP 96.6 F, OXYGEN SAT % 96%, SAFE IN ENV? (Y/N) YES, NA INITIALS AW 1102, REVIEWED BY: SHANTELLE. ASSESSMENTS SPONDYLOSIS WITHOUT MYELOPATHY OR RADICULOPATHY, LUMBAR REGION - M47.816 (PRIMARY) SPONDYLOSIS WITHOUT MYELOPATHY OR RADICULOPATHY, LUMBOSACRAL REGION - M47.817 PROCEDURES PN LUMBAR FACET BLOCK THERAPEUTIC PRE PROCEDURE DIAGNOSIS LUMBAR SPONDYLOSIS, LUMBOSACRAL SPONDYLOSIS POST PROCEDURE DIAGNOSIS LUMBAR SPONDYLOSIS, LUMBOSACRAL SPONDYLOSIS PROCEDURE BILATERAL L4-L5 AND BILATERAL L5-S1 LUMBAR FACET THERAPEUTIC BLOCK SURGEON DR. POOJA KENNEY [employer] NONE ANESTHESIA LOCAL PRE PROCEDURE NOTE THE PATIENT HAS A HISTORY OF CHRONIC LOW BACK PAIN. I EVALUATE THE PATIENT AND REVIEWED THE CHART. I WENT OVER THE RISKS, ALTERNATIVES, AND BENEFITS ASSOCIATED WITH THIS PROCEDURE. THE PATIENT WOULD LIKE TO PROCEED AND GIVE CONSENT TO PERFORMED THE PROCEDURE. THE PATIENT DENIES UNEXPLAINABLE WEIGHT LOSS, FEVER, CHILLS, OR NEW CHANGES IN URINARY OR BOWEL CONTROL DESCRIPTION OF PROCEDURE THE PATIENT WAS BROUGHT TO THE PROCEDURE ROOM AND PLACED IN THE PRONE POSITION. THE LUMBOSACRAL AREA WAS CLEANED WITH CHLORAPREP SOLUTION AND DRAPED ASEPTICALLY. THE PROCEDURE WAS DONE UNDER STERILE CONDITIONS. I CHECKED LATERALITY AND THE LEVEL WHERE THE PROCEDURE WAS GOING TO BE PERFORMED WITH THE PATIENT AND THE SUPPORTING STAFF AT THE MOMENT OF THE TIME OUT IN THE PROCEDURE ROOM. UNDER FLUOROSCOPIC GUIDANCE, THE TARGET POINT WAS SELECTED AT THE RIGHT AND LEFT L4-L5 AND RIGHT AND LEFT L5-S1 FACET JOINT. TARGET POINT WAS SELECTED AFTER LATERAL ROTATION AND TILT OF THE MAGNIFIER OF THE C-ARM. LIDOCAINE 0.5% WAS USED TO NUMB THE SKIN AND THE SUBCUTANEOUS TISSUE BELOW IT. SPINAL NEEDLES, 22-GAUGE, WERE ADVANCED UNDER FLUOROSCOPIC GUIDANCE AND FOLLOWING PATIENT FEEDBACK UNTIL THE TARGETS WERE TOUCHED. THE POSITION OF THE NEEDLES WAS VERIFIED WITH AP AND LATERAL VIEWS. AFTER PROPER POSITION OF THE NEEDLES WAS ACHIEVED, ISOVUE-M DYE 30% 0.1 ML WAS INJECTED SHOWING ADEQUATE SPREAD OF THE DYE. THEN A SOLUTION OF 1.9 ML OF BUPIVACAINE 0.125% OF KENALOG 10 MG WAS INJECTED AT EACH SITE. THERE WAS NO EVIDENCE OF BLOOD, PARESTHESIA OR CEREBROSPINAL FLUID DURING THE PROCEDURE. THE PATIENT WAS SENT TO THE RECOVERY ROOM. THE PATIENT WAS MOVING THE EXTREMITIES AND DOING WELL. THERE WAS NO COMPLICATION DURING THE PROCEDURE. FLUOROSCOPY TIME WAS 11 SECONDS POST PROCEDURE NOTE THE PATIENT WILL BE SEEN IN A FOLLOW UP IN THE NEXT FEW WEEKS. INSTRUCTIONS WERE GIVEN, QUESTIONS WERE ANSWERED, AND THE PATIENT EXPRESSED UNDERSTANDING AND AGREES WITH THE PLAN. I, TIERNEY STEINER, DOCUMENTED THE ABOVE INFORMATION ACTING A SCRIBE FOR DR. KENNEY. I HAVE REVIEWED THE ABOVE DOCUMENT, WRITTEN BY TIERNEY LIEBERMANIBCarolyn AND I VERIFY THAT IT IS [facility]NOST[facility] FACET BLOCK (PAIN)[id number] PROCEDURE CODES 58974 INJ PARAVERT F JNT L/S 1 LEV 14244 INJ PARAVERT F JNT L/S 2 LEV 6045F RADXPS IN END [id number] PXD DISPOSITION & COMMUNICATION FOLLOW UP 3 WEEKS ELECTRONICALLY SIGNED BY POOJA KENNEY MD ON 01/31/2017 AT 05:40 PM EDT DISCLAIMER : THIS IS A VISIT SUMMARY EXTRACTED FROM THE [employer] CHART. IT IS NOT A COPY OF THE [employer] PROGRESS NOTE. MTDMarcus
== END ==
LOC: M PAIN 11:00
PROVIDERS: ATTEND Anesthesiology
DX: G89.29 Other chronic pain (principal); M47.816 Spondylosis without myelopathy or radiculopathy, lumbar region; M47.817 Spondylosis without myelopathy or radiculopathy, lumbosacral region; F41.9 Anxiety disorder, unspecified; F32.9 Major depressive disorder, single episode, unspecified; E03.9 Hypothyroidism, unspecified; F17.200 Nicotine dependence, unspecified, uncomplicated; F10.21 Alcohol dependence, in remission; Z88.8 Allergy status to other drugs, medicaments and biological substances; Z79.82 Long term (current) use of aspirin; Z79.899 Other long term (current) drug therapy
CPT/HCPCS: 64493; 64494; J3301; Q9967

== ENCOUNTER → 2017-02-15 | Outpatient (CLI) | payer MEDICARE ==
[~2017-02-15] MED LIST changes: -BUPIVACAINE HCL 0.25% 30 ML VIAL As Ordered ONE; -ISOVUE-M 300 61% 15ML VIAL (Q9967) As Ordered ONE; -LIDOCAINE 1% SDV INJ 30 ML VIAL As Ordered ONE; -TRIAMCINOLONE ACETONIDE SUSP 40 MG/ML VIAL (J3301) As Ordered ONE; -diazePAM 5 MG TAB As Ordered ONE; -oxyCODONE 5MG TAB As Ordered ONE
--- NOTE | 2017-02-18 23:24 | ECWPNPC ---
PATIENT NAME: FRED MICHELLE : 1950 GENDER: FEMALE VISIT DATE: 02/15/2017 DISCHARGE DATE: 02/15/17 1221 VISIT LOCKED DATE TIME: PHYSICIAN: AMADOU STINSON RESOURCE: AMADOU STINSON REASON FOR APPOINTMENT 1. LOW BACK-POST INJ HISTORY OF PRESENT ILLNESS HISTORY OF PRESENT ILLNESS: PAIN THE PATIENT DESCRIBES THE PAIN... FALL RISK SCREENING: SCREENING :NO FALLS IN THE PAST YEAR TODAY'S VISIT: NOTES: RATES PAIN TODAY 6/10. IS NOT HAVING THE REALLY BAD PAIN IN LOW BACK, BUT NOW PAIN IS CONCENTRATED IN HIPS, LEFT GREATER THAN RIGHT WITH RADIATION TO LEFT GROIN. HAS IMPROVEMENT IN NUMBNESS IN LEGS BUT STILL SOME AT TOP OF THIGHS FROM TROCANTER TO GROIN. HAD FALL THIS MORNING AND FELT SHE COULDN'T MOVE FOR A BRIEF PERIOD, THEN WAS ABLE TO STAND.. CURRENT MEDICATIONS TAKING CARVEDILOL 12.5 MG TABLET ORALLY TWICE A DAY TAKING AMLODIPINE BESYLATE 10 MG TABLET 1 TABLET ORALLY ONCE A DAY TAKING CLONAZEPAM 1 MG TABLET 1 TABLET ORALLY TWICE A DAY TAKING VENLAFAXINE HCL ER 150 MG CAPSULE EXTENDED RELEASE 24 HOUR 1 CAPSULE WITH FOOD ORALLY ONCE A DAY TAKING ASPIRIN 81 MG TABLET CHEWABLE 1 TABLET ORALLY ONCE A DAY TAKING CALCIUM + D3 600-200 MG-UNIT TABLET ORALLY TAKING VITAMIN D3 1000 UNIT CAPSULE 1 CAPSULE ORALLY ONCE A DAY TAKING MULTI FOR HER - TABLET ORALLY TAKING LISINOPRIL 40 MG TABLET 1 TABLET ORALLY ONCE A DAY TAKING ZETIA 10 MG TABLET 1 TABLET ORALLY ONCE A DAY TAKING CLONIDINE HCL 0.1 MG TABLET 1 TABLET AT BEDTIME ORALLY NEEDED? NOT-TAKING PROZAC 10 MG CAPSULE 1 CAPSULE IN THE MORNING ORALLY ONCE A DAY NOT-TAKING BACLOFEN 10 MG TABLET 1 TABLET WITH FOOD OR MILK ORALLY BEFORE BEDTIME NOT-TAKING DULCOLAX STOOL SOFTENER 100 MG CAPSULE 1 CAPSULE NEEDED ORALLY ONCE A DAY, NOTES: > 2 MONTHS NOT-TAKING OMEPRAZOLE 20 MG CAPSULE DELAYED RELEASE 1 CAPSULE ORALLY BID NOT-TAKING LOPERAMIDE HCL 2 MG TABLET 1 TABLET AFTER WATERY BOWEL MOVEMENT ORALLY MAY REPEAT IN 2 HOURS IF INITIAL DOSE WAS INEFFECTIVE NOT-TAKING TIZANIDINE HCL 2 MG TABLET 1 TABLET NEEDED ORALLY BEFORE BEDTIME NOT-TAKING MIRALAX - POWDER 17 GRAMS ORALLY DAILY UNKNOWN LEVOTHYROXINE SODIUM 25 MCG TABLET 1 TABLET ON AN EMPTY STOMACH IN THE MORNING ORALLY ONCE A DAY MEDICATION LIST REVIEWED AND RECONCILED WITH THE PATIENT PAST MEDICAL HISTORY HTN (ETT 06/11 NEG) ANXIETY DEPRESSION HYPOTHYROID WITH 2 SMALL CYSTS HX OF C.DIFF TOBACCO ABUSE ETOH ABUSE IN REMISSION ALLERGIES STATINS (FOR ALLERGY USE ONLY): ACHY, PAINFUL MUSCLES: ALLERGY MAGNESIUM: DIARRHEA: ALLERGY TRAZODONE HCL: MUSCLE ACHES: ALLERGY SOCIAL HISTORY GENERAL: TOBACCO USE ARE YOU A:CURRENT SMOKER HOW MANY CIGARETTES A DAY DO YOU SMOKE?6-10 HOW SOON AFTER YOU WAKE UP DO YOU SMOKE YOUR FIRST CIGARETTE?6-30 MIN HOW OFTEN DO YOU SMOKE CIGARETTES?EVERY DAY PATIENT COUNSELED ON THE DANGERS OF TOBACCO USE AND URGED TO QUIT:02/15/2017 ARE YOU INTERESTED IN QUITTING?THINKING ABOUT QUITTING HAS PAMPHLETS AND OTHER MATERIAL AT HOME COUNSELED THE PATIENT ON SMOKING CESSATION, EDUCATION [id number]/22/2017 ALCOHOL SCREENING DID YOU HAVE A DRINK CONTAINING ALCOHOL IN THE PAST YEAR?NO POINTS0 INTERPRETATIONNEGATIVE CAFFEINE CAFFEINE USE?NO OCCUPATION: RETIRED. DIET: REGULAR. EXERCISE: WALKS, SWIMS. MARITAL STATUS: . OTHERS AT HOME: NONE. YARSANISM [id number] HINDU EDUCATION LEVEL OF EDUCATION:NOT FINISHED COLLEGE [facility] CLINIC PFS, CLERGY, PUBLIC HEALTH REFERRALS PFS REFERRAL NEEDED?NO CLERGY REFERRAL NEEDED?NO PUBLIC HEALTH REFERRAL NEEDED?NO WAS THE PROVIDER NOTIFIED OF ANY PERTINENT INFO?NO PATIENT: ____. REVIEW OF SYSTEMS CONSTITUTIONAL: ANY CHANGE IN YOUR MEDICAL CONDITION? NO . CHILLS NO . FEVER NO . INFECTION: DO YOU HAVE NEW INFECTIONS? NO . DO YOU HAVE HISTORY OF MRSA? NO . MUSCULOSKELETAL: ANY NEW PATTERNS OF PAIN OR NUMBNESS? NO . GASTROENTEROLOGY: ANY NEW CHANGE IN BOWEL CONTROL? NO . GENITOURINARY: ANY NEW CHANGE IN BLADDER CONTROL? NO . IS THERE A CHANCE YOU COULD BE ? NO . HEMATOLOGY/LYMPH: DO YOU TAKE ANY BLOOD THINNERS? (FOR EXAMPLE- COUMADIN, PLAVIX, AGGRENOX, PLATEL, PRADAXA, OR XARELTO) NO . WHEN WAS YOUR LAST DOSE? DATE: TIME: . NEUROLOGY: HAVE YOU FALLEN IN THE PAST 6 MONTHS? YES, 3 A.M. THIS MORNING. WAS LETTING DOG IN AND FELL, LANDING ON RIGHT SHOULDER AND KNEE. ALSO FELL EASTER DAY--WAS WALKING AND TRIPPED ON SIDEWALK--SKINNED RIGHT KNEE . ANY NEW EXTREMITY NUMBNESS OR WEAKNESS? NO . CARDIOLOGY: DO YOU HAVE A PACEMAKER OR DEFIBRILLATOR? NO . RESPIRATORY: HAVE YOU BEEN SICK IN THE PAST WEEK? NO . FEVER NO . FLU LIKE SYMPTOMS? NO . COUGH NO . INTEGUMENTARY: DO YOU HAVE ANY RASHES OR OPEN SORES? NO . ALLERGIC/IMMUNO: ARE YOU ALLERGIC TO SHELLFISH OR IV DYE? NO . ANY NEW ALLERGIES? NO . PSYCHIATRIC: DO YOU HAVE THOUGHTS OF HURTING YOURSELF OR SOMEONE ELSE? NO . ARE YOU ABUSED, NEGLECTED, OR IN AN UNSAFE ENVIRONMENT? NO . ENDOCRINOLOGY: ARE YOU DIABETIC? NO . OTHER: DO YOU NEED ANY PRESCRIPTIONS? NO . IF YES, PLEASE LIST: ____ . ANY NEW PROBLEMS WITH YOUR MEDICATIONS? NO . WHEN DID YOU LAST EAT? ____ . WHEN DID YOU LAST DRINK? ____ . WHAT DID YOU LAST DRINK? ____ . NAME OF PERSON DRIVING YOU HOME? ____ . DO YOU HAVE ANY OTHER QUESTIONS OR CONCERNS NO . REVIEWED BY: PROVIDER: AMADOU MÁRQUEZ . VITAL SIGNS WT 137 LBS, HT 62.5 IN, BMI 24.66 INDEX, BP 107/64 MM HG, HR 72 /MIN, RR 18 /MIN, TEMP 97.4 F, OXYGEN SAT % 98, REVIEWED BY: NL. EXAMINATION GENERAL EXAMINATION: PSYCHALERT , ORIENTED X 3 , APPEARS UNCOMFORTABLE. LUNGS:CLEAR TO AUSCULTATION BILATERALLY. HEART:HEART RATE REGULAR. MUSCULOSKELETAL:MUSCLE STRENGTH TESTING 5/5 BILATERAL LOWER EXTREMITIES. POINT TENDERNESS OVER SACRUM AND COCCYX AREA. POINT TENDERNESS OVER TROCANTERIC REGIONS RIGHT GREATER THAN LEFT WITH INTENSE PAIN IN RIGHT GROIN WITH INTERNAL HIP ROTATION. ABLE TO RISE TO STANDING POSITION. GAIT ANTALGIC.. 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 EXERCISE TOLERATED. CARRY PHONE WHEN WALKING. PAIN IN LEFT HIP [facility] MRI HIP WITHOUT [id number],SUSAN M 02/15/2017 12:13:42 PM > DEGENERATIVE CHANGES - LOSS OF RANGE, FREQ FALLS PAIN IN RIGHT HIP [facility] MRI HIP WITHOUT [id number],SUSAN M 02/15/2017 12:13:42 PM > DEGENERATIVE CHANGES - LOSS OF RANGE, FREQ FALLS PROCEDURE CODES FA211 ESTABILISHED PATIENT [facility] FACILITY CHARGE G8730 PAIN ASSESS POS TOOL F/U PLAN DOC G8427 DOC MEDS VERIFIED W/PT OR RE DISPOSITION & COMMUNICATION FOLLOW UP 1 WEEK AFTER MRI (REASON: CHECK AUTH FOR MRI OF HIPS) ELECTRONICALLY SIGNED BY ESDRAS ANDERSON ON 02/18/2017 AT 08:59 AM EDT DISCLAIMER : THIS IS A VISIT SUMMARY EXTRACTED FROM THE [facility] CHART. IT IS NOT A COPY OF THE [employer] PROGRESS NOTE. MTDD
== END ==
LOC: M PAIN 11:00
PROVIDERS: ATTEND Nurse Practitioner Family
DX: G89.29 Other chronic pain (principal); M48.06 Spinal stenosis, lumbar region; M12.88 Other specific arthropathies, not elsewhere classified, other specified site; M25.552 Pain in left hip; M25.551 Pain in right hip; M43.16 Spondylolisthesis, lumbar region; I10 Essential (primary) hypertension; E78.5 Hyperlipidemia, unspecified; F41.9 Anxiety disorder, unspecified; F32.9 Major depressive disorder, single episode, unspecified; E03.9 Hypothyroidism, unspecified; F17.210 Nicotine dependence, cigarettes, uncomplicated; F10.21 Alcohol dependence, in remission; Z88.8 Allergy status to other drugs, medicaments and biological substances; Z79.82 Long term (current) use of aspirin; Z79.899 Other long term (current) drug therapy

== ENCOUNTER → 2017-02-18 | Outpatient (REF) | payer MEDICARE ==
[2017-02-18 16:51] LABS: BASO % 0.3 % (0.0-1.0); EOS # 0.2 K/mm3 (0.0-0.50); EOS % 2.2 % (0.0-3.0); LARGE UNSTAINED CELL # 0.1 K/mm3 (0.0-0.4); LARGE UNSTAINED CELL % 1.5 % (0.0-4.0); LYMPH # 1.5 K/mm3 (1.5-4.5); LYMPH % 16.6 % (24.0-44.0); MEAN CORPUSCULAR HEMOGLOBIN 34.7 pg (27.0-33.0); MEAN CORPUSCULAR HGB CONC 33.7 g/dl (32.0-36.5); MEAN CORPUSCULAR VOLUME 102.9 fl (80.0-96.0); MONO # 0.4 K/mm3 (0.0-0.8); MONO % 4.5 % (0.0-5.0); NEUTROPHILS # 6.6 K/mm3 (1.8-7.7); NEUTROPHILS % 74.9 % (36.0-66.0); PLATELET COUNT, AUTOMATED 405 k/mm3 (150-450); RED CELL DISTRIBUTION WIDTH 11.9 % (11.5-14.5); WHITE BLOOD COUNT 8.8 K/mm3 (4.0-10.0)
[2017-02-18 17:18] LABS: ALBUMIN 4.2 GM/DL (3.2-5.2); ALBUMIN/GLOBULIN RATIO 1.17 (1.00-1.93); ALKALINE PHOSPHATASE 70 U/L (45-117); ALT/SGPT 31 U/L (12-78); ANION GAP 5 MEQ/L (8-16); AST/SGOT 20 U/L (15-37); BILIRUBIN,TOTAL 0.4 MG/DL (0.2-1.0); BLOOD UREA NITROGEN 9 MG/DL (7-18); CALCIUM LEVEL 11.1 MG/DL (8.8-10.2); CARBON DIOXIDE LEVEL 31 MEQ/L (21-32); CHLORIDE LEVEL 101 MEQ/L (98-107); CREATININE FOR GFR 0.82 MG/DL (0.55-1.02); GLOMERULAR FILTRATION RATE > 60.0 (>45); GLUCOSE, FASTING 121 MG/DL (80-110); SODIUM LEVEL 137 MEQ/L (136-145); TOTAL PROTEIN 7.8 GM/DL (6.4-8.2)
[2017-02-18 17:20] LABS: POTASSIUM SERUM 5.4 MEQ/L (3.5-5.1)
== END ==
LOC: M SFHCLERA 10:33
PROVIDERS: ATTEND Physician Assistant
DX: R53.81 Other malaise (principal)
CPT/HCPCS: 80053; 85025; G0463

== ENCOUNTER → 2017-02-23 | Outpatient (CLI) | payer MEDICARE ==
--- NOTE | 2017-02-24 10:03 | REP ---
MRI BILATERAL HIPS: TECHNIQUE: Coronal T1, STIR through the pelvis, T2 fat sat, bilateral hip all three planes, axial oblique proton density fat sat bilateral hip. There is arthritic change of a relatively mildly degree at the sacroiliac joints with mild subchondral marrow edema along both of these joints. There is also some mild degenerative change at the pubic symphysis with mild subchondral marrow edema. No occult fracture is seen. There is no evidence of avascular necrosis. Both the right and left labrum demonstrate diffuse fraying. Some mild increased signal is seen along the greater trochanters bilaterally suggesting very mild bilateral greater trochanteric tendinobursitis. No paralabral cyst is seen. Other soft tissue structures surrounding the hips are unremarkable. There is mild diffuse chondromalacia at the hip joints. Within the visualized portions of the pelvis no adenopathy or mass is seen. There does appears to be a tiny filling defect in the base of the bladder 5 mm in diameter probably representing a stone or polyp. IMPRESSION: Arthritic changes as discussed in detail above involving the sacroiliac joints, pubic symphysis and hip joints There is diffuse labral fraying bilaterally. There is minor bilateral greater trochanteric tendinobursitis. 5 mm filling defect in the base of the bladder represents a stone or polyp. Signed by Larry Cho MD 02/25/2017 07:03 P
== END ==
LOC: M RAD 11:42
PROVIDERS: ATTEND Nurse Practitioner Family
DX: M25.552 Pain in left hip (principal); M25.551 Pain in right hip

== ENCOUNTER → 2017-03-02 | Outpatient (CLI) | payer MEDICARE ==
--- NOTE | 2017-03-19 00:27 | ECWPNPC ---
PATIENT NAME: FRED MICHELLE : 1950 GENDER: FEMALE VISIT DATE: 03/02/2017 DISCHARGE DATE: 03/02/17 1618 VISIT LOCKED DATE TIME: PHYSICIAN: AMADOU STINSON RESOURCE: AMADOU STINSON REASON FOR APPOINTMENT 1. REVIEW MRI HISTORY OF PRESENT ILLNESS HISTORY OF PRESENT ILLNESS: PAIN THE PATIENT DESCRIBES THE PAIN... FALL RISK SCREENING: SCREENING :NO FALLS IN THE PAST YEAR TODAY'S VISIT: NOTES: RATES PAIN TODAY 6/10. NOTES THE WORST OF THE PAIN IS IN THE HIPS, LEFT GREATER THAN RIGHT AND SHE IS HAVING TROUBLE FINDING A COMFORTABLE POSITIONAND THAT SHE CAN'T SLEEP OF FUNCTION. STATES "I DON'T HOW MUCH LONGER I CAN GO ON WITH THIS". DID SEE HER MENTAL HEALTH PROVIDER/COUNSELOR AND PROZAC WAS CHANGED TO CYMBALTA AND SHE IS NOTING SOME IMPROVEMENT IN MOOD , SLEEP AND SLIGHTLY WITH PAIN IN BACK. DID COMPLETE MRI OF HIPS.. CURRENT MEDICATIONS TAKING CARVEDILOL 12.5 MG TABLET ORALLY TWICE A DAY TAKING AMLODIPINE BESYLATE 10 MG TABLET 1 TABLET ORALLY ONCE A DAY TAKING CLONAZEPAM 1 MG TABLET 1 TABLET ORALLY TWICE A DAY TAKING ASPIRIN 81 MG TABLET CHEWABLE 1 TABLET ORALLY ONCE A DAY TAKING CALCIUM + D3 600-200 MG-UNIT TABLET 1 TAB ORALLY BID TAKING VITAMIN D3 1000 UNIT CAPSULE 1 CAPSULE ORALLY BID TAKING MULTI FOR HER - TABLET 1 TAB ORALLY DAILY TAKING LISINOPRIL 40 MG TABLET 1 TABLET ORALLY ONCE A DAY TAKING ZETIA 10 MG TABLET 1 TABLET ORALLY ONCE A DAY TAKING CLONIDINE HCL 0.1 MG TABLET 1 TABLET AT BEDTIME ORALLY NEEDED? TAKING CYMBALTA 60 MG CAPSULE DELAYED RELEASE PARTICLES 1 CAPSULE ORALLY ONCE A DAY NOT-TAKING VENLAFAXINE HCL ER 150 MG CAPSULE EXTENDED RELEASE 24 HOUR 1 CAPSULE WITH FOOD ORALLY ONCE A DAY NOT-TAKING BETAMETHASONE DIPROPIONATE 0.05 % LOTION 1 APPLICATION TO ANTERIOR CHEST EXTERNALLY TWICE A DAY NOT-TAKING PROZAC 10 MG CAPSULE 1 CAPSULE IN THE MORNING ORALLY ONCE A DAY NOT-TAKING BACLOFEN 10 MG TABLET 1 TABLET WITH FOOD OR MILK ORALLY BEFORE BEDTIME NOT-TAKING DULCOLAX STOOL SOFTENER 100 MG CAPSULE 1 CAPSULE NEEDED ORALLY ONCE A DAY, NOTES: > 2 MONTHS NOT-TAKING OMEPRAZOLE 20 MG CAPSULE DELAYED RELEASE 1 CAPSULE ORALLY BID NOT-TAKING LOPERAMIDE HCL 2 MG TABLET 1 TABLET AFTER WATERY BOWEL MOVEMENT ORALLY MAY REPEAT IN 2 HOURS IF INITIAL DOSE WAS INEFFECTIVE NOT-TAKING TIZANIDINE HCL 2 MG TABLET 1 TABLET NEEDED ORALLY BEFORE BEDTIME NOT-TAKING MIRALAX - POWDER 17 GRAMS ORALLY DAILY UNKNOWN LEVOTHYROXINE SODIUM 25 MCG TABLET 1 TABLET ON AN EMPTY STOMACH IN THE MORNING ORALLY ONCE A DAY MEDICATION LIST REVIEWED AND RECONCILED WITH THE PATIENT PAST MEDICAL HISTORY HTN (ETT 06/11 NEG) ANXIETY DEPRESSION HYPOTHYROID WITH 2 SMALL CYSTS HX OF C.DIFF TOBACCO ABUSE ETOH ABUSE IN REMISSION ALLERGIES STATINS (FOR ALLERGY USE ONLY): ACHY, PAINFUL MUSCLES: ALLERGY MAGNESIUM: DIARRHEA: ALLERGY TRAZODONE HCL: MUSCLE ACHES: ALLERGY REVIEW OF SYSTEMS REVIEWED BY: PROVIDER: AMADOU MÁRQUEZ . CONSTITUTIONAL: ANY CHANGE IN YOUR MEDICAL CONDITION? NO . CHILLS NO . FEVER NO . INFECTION: DO YOU HAVE NEW INFECTIONS? NO . DO YOU HAVE HISTORY OF MRSA? NO . MUSCULOSKELETAL: ANY NEW PATTERNS OF PAIN OR NUMBNESS? YES, INTERMITTENT NUMBNESS DOWN BOTH LEGS, MORE ON THE LEFT . GASTROENTEROLOGY: GENERAL GENERAL GI UPSET - REPORTS HISTORY OF GI UPCER AND DIVERTICULITIS . ANY NEW CHANGE IN BOWEL CONTROL? YES, CONSTIPATION AT TIMES . GENITOURINARY: ANY NEW CHANGE IN BLADDER CONTROL? NO . IS THERE A CHANCE YOU COULD BE ? NO . HEMATOLOGY/LYMPH: DO YOU TAKE ANY BLOOD THINNERS? (FOR EXAMPLE- COUMADIN, PLAVIX, AGGRENOX, PLATEL, PRADAXA, OR XARELTO) NO . WHEN WAS YOUR LAST DOSE? DATE: TIME: . NEUROLOGY: HAVE YOU FALLEN IN THE PAST 6 MONTHS? NO . ANY NEW EXTREMITY NUMBNESS OR WEAKNESS? NO . CARDIOLOGY: DO YOU HAVE A PACEMAKER OR DEFIBRILLATOR? NO . CHEST PAIN PATIENT DENIES . RESPIRATORY: HAVE YOU BEEN SICK IN THE PAST WEEK? NO . FEVER NO . FLU LIKE SYMPTOMS? NO . COUGH NO . INTEGUMENTARY: DO YOU HAVE ANY RASHES OR OPEN SORES? NO . ALLERGIC/IMMUNO: ARE YOU ALLERGIC TO SHELLFISH OR IV DYE? NO . ANY NEW ALLERGIES? NO . PSYCHIATRIC: DO YOU HAVE THOUGHTS OF HURTING YOURSELF OR SOMEONE ELSE? NO . ARE YOU ABUSED, NEGLECTED, OR IN AN UNSAFE ENVIRONMENT? NO . ENDOCRINOLOGY: ARE YOU DIABETIC? NO . OTHER: DO YOU NEED ANY PRESCRIPTIONS? NO . IF YES, PLEASE LIST: ____ . ANY NEW PROBLEMS WITH YOUR MEDICATIONS? NO . DO YOU HAVE ANY OTHER QUESTIONS OR CONCERNS NO . VITAL SIGNS WT 138.0 LBS, HT 62.5 IN, BMI 24.84 INDEX, BP 108/62 MM HG, HR 88 /MIN, RR 16 /MIN, TEMP 96.6 F, OXYGEN SAT % 96%, NA INITIALS TL 1519, REVIEWED BY: TAJ. EXAMINATION GENERAL EXAMINATION: PSYCHALERT , ORIENTED X 3 , APPEARS UNCOMFORTABLE. LUNGS:CLEAR TO AUSCULTATION BILATERALLY. HEART:HEART RATE REGULAR. MUSCULOSKELETAL:MUSCLE STRENGTH TESTING 01/29 BILATERAL LOWER EXTREMITIES. POINT TENDERNESS OVER SACRUM AND COCCYX AREA. EXQUISITE TENDERNESS OVER TROCANTERIC REGIONS LEFT GREATER THAN RIGHT WITH INTENSE PAIN IN LEFT GROIN WITH INTERNAL HIP ROTATION. ABLE TO RISE TO STANDING POSITION. GAIT ANTALGIC.. NEUROLOGIC EXAM:SOME SENSORY DECREASE NOTED OVER BILATERAL LLATERAL THIGH REGIONS.. DIAGNOSTIC TESTS REVIEWEDMRI OF BILATERAL HIPS AND PELVIS COMPLETED ON 02/23/17 DEMONSTRATES ARTHRITIC CHANGES INVOLVING THE SACRALILIAC JOINTS, PUBIS SYMPHYSIS AND HIP JOINTS. THERE IS DIFFUSE LABRAL FRAYING BILATERALLY. THERE IS MINOR TROCANTERIC TENDINOBURSITIS. . 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 LUMBAR SPINAL STENOSIS START MELOXICAM TABLET, 15 MG, 1 TABLET, ORALLY, ONCE A DAY, 15 DAYS, 15 TABLET, REFILLS 0 START NORCO TABLET, 5-325 MG, 1 TABLET NEEDED, ORALLY, BEFORE BEDTIME, 10 DAY(S), 10, REFILLS 0 ARTHROCENTESIS INJECTION LARGE JOINT ([id number])AMADOU STINSON 03/02/2017 3:55:34 PM > LEFT TROCANTERIC BURSA INJECTION NOTES: BIOFREEZE OR FAVORITE MUSCLE RUB TO HIPS. PROCEDURE CODES FA211 ESTABILISHED PATIENT [facility] FACILITY CHARGE G8730 PAIN ASSESS POS TOOL F/U PLAN DOC G8427 DOC MEDS VERIFIED W/PT OR RE DISPOSITION & COMMUNICATION FOLLOW UP SCHEDULE FOR INJECTION CORINNE (REASON: REQUEST AUTH FOR LEFT HIP BURSA INJECTION, TO BE FOLLLOWED AFTER BY RIGHT HIP. D) ELECTRONICALLY SIGNED BY ESDRAS ANDERSON ON 03/18/2017 AT 06:32 PM EDT DISCLAIMER : THIS IS A VISIT SUMMARY EXTRACTED FROM THE [employer] CHART. IT IS NOT A COPY OF THE [employer] PROGRESS NOTE. TRACEY
== END ==
LOC: M PAIN 15:00
PROVIDERS: ATTEND Nurse Practitioner Family
DX: G89.29 Other chronic pain (principal); M25.552 Pain in left hip; M48.06 Spinal stenosis, lumbar region; M12.88 Other specific arthropathies, not elsewhere classified, other specified site; M25.551 Pain in right hip; M43.16 Spondylolisthesis, lumbar region; I10 Essential (primary) hypertension; E78.5 Hyperlipidemia, unspecified; F41.9 Anxiety disorder, unspecified; F32.9 Major depressive disorder, single episode, unspecified; E03.9 Hypothyroidism, unspecified; F17.200 Nicotine dependence, unspecified, uncomplicated; F10.21 Alcohol dependence, in remission; K59.01 Slow transit constipation; Z88.8 Allergy status to other drugs, medicaments and biological substances; Z79.82 Long term (current) use of aspirin; Z79.899 Other long term (current) drug therapy

== ENCOUNTER → 2017-03-11 | Outpatient (CLI) | payer MEDICARE ==
[~2017-03-11] MED LIST changes: +BUPIVACAINE HCL 0.25% 10 ML VIAL As Ordered ONE; +BUPIVACAINE HCL 0.25% 30 ML VIAL As Ordered ONE; +ISOVUE-M 300 61% 15ML VIAL (Q9967) As Ordered ONE; +LIDOCAINE 1% SDV INJ 30 ML VIAL As Ordered ONE; +TRIAMCINOLONE ACETONIDE SUSP 40 MG/ML VIAL (J3301) As Ordered ONE; +diazePAM 5 MG TAB As Ordered ONE; +oxyCODONE 5MG TAB As Ordered ONE
--- NOTE | 2017-03-11 12:49 | REP ---
FLUOROSCOPIC GUIDANCE: The images were reviewed with Dr. Cho. The patient has a history of bilateral hip pain. The portable C-arm is provided in the OR for Dr. Arita for fluoroscopic guidance. Six intraoperative fluoroscopic spot films are obtained for needle placement verification for bilateral hip injection. The films are on the PACS system and are available for review. 19 seconds of fluoroscopy time was utilized for this procedure. Reviewed by NATTY Benjamin 03/11/2017 03:20 PEdited and Signed by Larry Cho MD 03/11/2017 04:33 P
--- NOTE | 2017-03-19 00:06 | ECWPNPC ---
PATIENT NAME: FRED MICHELLE : 1950 GENDER: FEMALE VISIT DATE: 03/11/2017 DISCHARGE DATE: 03/11/17 1140 VISIT LOCKED DATE TIME: PHYSICIAN: POOJA KENNEY RESOURCE: POOJA KENNEY REASON FOR APPOINTMENT 1. R LEFT HIP BURSA INJECTION, TO BE FOLLLOWED AFTER BY RIGHT HIP. HISTORY OF PRESENT ILLNESS HISTORY OF PRESENT ILLNESS: PAIN THE PATIENT DESCRIBES THE PAIN... FALL RISK SCREENING: SCREENING :NO FALLS IN THE PAST YEAR CURRENT MEDICATIONS TAKING CARVEDILOL 12.5 MG TABLET ORALLY TWICE A DAY, NOTES: 03/11/17599 TAKING AMLODIPINE BESYLATE 10 MG TABLET 1 TABLET ORALLY ONCE A DAY, NOTES: 03/11/17599 TAKING CLONAZEPAM 1 MG TABLET 1 TABLET ORALLY TWICE A DAY, NOTES: 03/11/17599 TAKING ASPIRIN 81 MG TABLET CHEWABLE 1 TABLET ORALLY ONCE A DAY, NOTES: 03/10/172099 TAKING CALCIUM + D3 600-200 MG-UNIT TABLET 1 TAB ORALLY BID, NOTES: 03/11/17599 TAKING VITAMIN D3 1000 UNIT CAPSULE 1 CAPSULE ORALLY BID, NOTES: 03/11/17599 TAKING MULTI FOR HER - TABLET 1 TAB ORALLY DAILY, NOTES: 03/11/17599 TAKING LISINOPRIL 40 MG TABLET 1 TABLET ORALLY ONCE A DAY, NOTES: 03/10/172099 TAKING ZETIA 10 MG TABLET 1 TABLET ORALLY ONCE A DAY, NOTES: 03/10/172099 TAKING CLONIDINE HCL 0.1 MG TABLET 1 TABLET AT BEDTIME ORALLY NEEDED?, NOTES: > 4 MONTHS TAKING CYMBALTA 60 MG CAPSULE DELAYED RELEASE PARTICLES 1 CAPSULE ORALLY ONCE A DAY, NOTES: 03/10/172099 TAKING MELOXICAM 15 MG TABLET 1 TABLET ORALLY ONCE A DAY, NOTES: NOT TAKING TAKING NORCO 5-325 MG TABLET 1 TABLET NEEDED ORALLY BEFORE BEDTIME, NOTES: NOT TAKING NOT-TAKING VENLAFAXINE HCL ER 150 MG CAPSULE EXTENDED RELEASE 24 HOUR 1 CAPSULE WITH FOOD ORALLY ONCE A DAY NOT-TAKING BETAMETHASONE DIPROPIONATE 0.05 % LOTION 1 APPLICATION TO ANTERIOR CHEST EXTERNALLY TWICE A DAY NOT-TAKING PROZAC 10 MG CAPSULE 1 CAPSULE IN THE MORNING ORALLY ONCE A DAY NOT-TAKING BACLOFEN 10 MG TABLET 1 TABLET WITH FOOD OR MILK ORALLY BEFORE BEDTIME NOT-TAKING DULCOLAX STOOL SOFTENER 100 MG CAPSULE 1 CAPSULE NEEDED ORALLY ONCE A DAY, NOTES: > 2 MONTHS NOT-TAKING OMEPRAZOLE 20 MG CAPSULE DELAYED RELEASE 1 CAPSULE ORALLY BID NOT-TAKING LOPERAMIDE HCL 2 MG TABLET 1 TABLET AFTER WATERY BOWEL MOVEMENT ORALLY MAY REPEAT IN 2 HOURS IF INITIAL DOSE WAS INEFFECTIVE NOT-TAKING TIZANIDINE HCL 2 MG TABLET 1 TABLET NEEDED ORALLY BEFORE BEDTIME NOT-TAKING MIRALAX - POWDER 17 GRAMS ORALLY DAILY UNKNOWN LEVOTHYROXINE SODIUM 25 MCG TABLET 1 TABLET ON AN EMPTY STOMACH IN THE MORNING ORALLY ONCE A DAY MEDICATION LIST REVIEWED AND RECONCILED WITH THE PATIENT PAST MEDICAL HISTORY HTN (ETT 06/11 NEG) ANXIETY DEPRESSION HYPOTHYROID WITH 2 SMALL CYSTS HX OF C.DIFF TOBACCO ABUSE ETOH ABUSE IN REMISSION ALLERGIES STATINS (FOR ALLERGY USE ONLY): ACHY, PAINFUL MUSCLES: ALLERGY MAGNESIUM: DIARRHEA: ALLERGY TRAZODONE HCL: MUSCLE ACHES: ALLERGY REVIEW OF SYSTEMS REVIEWED BY: PROVIDER: . CONSTITUTIONAL: ANY CHANGE IN YOUR MEDICAL CONDITION? NO . CHILLS NO . FEVER NO . INFECTION: DO YOU HAVE NEW INFECTIONS? NO . DO YOU HAVE HISTORY OF MRSA? NO . MUSCULOSKELETAL: ANY NEW PATTERNS OF PAIN OR NUMBNESS? NO . GASTROENTEROLOGY: ANY NEW CHANGE IN BOWEL CONTROL? NO . GENITOURINARY: ANY NEW CHANGE IN BLADDER CONTROL? NO . IS THERE A CHANCE YOU COULD BE ? NO . HEMATOLOGY/LYMPH: DO YOU TAKE ANY BLOOD THINNERS? (FOR EXAMPLE- COUMADIN, PLAVIX, AGGRENOX, PLATEL, PRADAXA, OR XARELTO) NO . WHEN WAS YOUR LAST DOSE? DATE: TIME: . NEUROLOGY: HAVE YOU FALLEN IN THE PAST 6 MONTHS? NO . ANY NEW EXTREMITY NUMBNESS OR WEAKNESS? NO . CARDIOLOGY: DO YOU HAVE A PACEMAKER OR DEFIBRILLATOR? NO . RESPIRATORY: HAVE YOU BEEN SICK IN THE PAST WEEK? NO . FEVER NO . FLU LIKE SYMPTOMS? NO . COUGH NO . INTEGUMENTARY: DO YOU HAVE ANY RASHES OR OPEN SORES? NO . ALLERGIC/IMMUNO: ARE YOU ALLERGIC TO SHELLFISH OR IV DYE? NO . ANY NEW ALLERGIES? NO . PSYCHIATRIC: DO YOU HAVE THOUGHTS OF HURTING YOURSELF OR SOMEONE ELSE? NO . ARE YOU ABUSED, NEGLECTED, OR IN AN UNSAFE ENVIRONMENT? NO . ENDOCRINOLOGY: ARE YOU DIABETIC? NO . OTHER: DO YOU NEED ANY PRESCRIPTIONS? NO . IF YES, PLEASE LIST: ____ . ANY NEW PROBLEMS WITH YOUR MEDICATIONS? NO . WHEN DID YOU LAST EAT? ____03/10/17 1900 . WHEN DID YOU LAST DRINK? ____03/10/17 0500 . WHAT DID YOU LAST DRINK? ____WATER . NAME OF PERSON DRIVING YOU HOME? WILBER THRASHER____ . DO YOU HAVE ANY OTHER QUESTIONS OR CONCERNS NO . VITAL SIGNS WT 137 LBS, HT 62.5 IN, BMI 24.66 INDEX, BP 99/61 MM HG, HR 80 /MIN, RR 16 /MIN, TEMP 97.7 F, OXYGEN SAT % 97%, NA INITIALS SC 09:08RN IS AWARE OF PT"S BP. ASSESSMENTS TROCHANTERIC BURSITIS, RIGHT HIP - M70.61 (PRIMARY) TROCHANTERIC BURSITIS, LEFT HIP - M70.62 TREATMENT OTHERS NOTES: PREPROCEDURE DIAGNOSIS: BURSITIS AT THE RIGHT ND LEFT GREATER TROCHANTER OF THE FEMUR. POSTPROCEDURE DIAGNOSIS: BURSITIS AT THE RIGHT AND LEFT GREATER TROCHANTER OF THE FEMUR. PROCEDURE: INJECTION AT THE BURSA OF THE OF THE RIGHT AND LEFTGREATER TROCHANTER OF THE FEMUR UNDER FLUOROSCOPIC GUIDANCE. SURGEON: DR. POOJA KENNEY PAINT SPRAYING MACHINE OPERATOR HELPER: NONEANESTHESIA: LOCAL. PREOPERATIVE NOTE: THE PATIENT HAS A HISTORY OF RIGHT AND LEFT HIP PAIN. I EVALUATED THE PATIENT AND REVIEWED THE CHART. WE BOTH AGREE ON INJECTING OVER THE BURSA OF THE RIGHT AND LEFT GREATER TROCHANTER OF THE FEMUR. I WENT THROUGH THE RISKS, ALTERNATIVES, AND BENEFITS ASSOCIATED WITH THIS PROCEDURE. THE PATIENT WOULD LIKE TO PROCEED AND GIVE CONSENT TO PERFORMED THE PROCEDURE. THE PATIENT DENIES UNEXPLAINABLE WEIGHT LOSS, FEVERS, CHILLS, OR CHANGES IN HIS URINARY OR BOWEL CONTROL. DESCRIPTION OF PROCEDURE: AFTER CONSENT WAS TAKEN, THE PATIENT WAS BROUGHT TO THE PROCEDURE ROOM AND PLACED IN THE LEFT LATERAL DECUBITUS POSITION. THE RIGHT HIP AREA WAS CLEANED WITH CHLORAPREP SOLUTION AND DRAPED ASEPTICALLY. THE PROCEDURE WAS DONE UNDER STERILE CONDITIONS. I CHECKED LATERALITY WITH THE PATIENT AND THE STAFF IN THE PROCEDURE ROOM AT THE MOMENT OF THE TIME OUT. UNDER FLUOROSCOPIC GUIDANCE, TARGET WAS SELECTED AT THE RIGHT GREATER TROCHANTER OF THE FEMUR. LIDOCAINE WAS USED TO NUMB THE SKIN AND THE SUBCUTANEOUS TISSUE BELOW IT. SPINAL NEEDLE, 22-GAUGE WAS ADVANCED UNDER FLUOROSCOPIC GUIDANCE AND FOLLOWING PATIENT FEEDBACK UNTIL THE TARGET WAS TOUCHED. POSITION OF THE NEEDLE WAS VERIFIED WITH AP AND LATERAL VIEWS. AFTER PROPER POSITION OF THE NEEDLE WAS ACHIEVED, ISOVUE M DYE, 30%, 0.25 ML WAS INJECTED SHOWING ADEQUATE SPREAD OF THE DYE. THEN A SOLUTION OF 10 ML OF BUPIVACAINE 0.25% AND KENALOG 40 MG WAS INJECTED. THERE WAS NO EVIDENCE OF BLOOD, PARESTHESIA, OR CEREBROSPINAL FLUID. THE PATIENT WAS THEN PLACED PLACED IN THE RIGHT LATERAL DECUBITUS POSITION. THE LEFT HIP AREA WAS CLEANED WITH CHLORAPREP SOLUTION AND DRAPED ASEPTICALLY. THE PROCEDURE WAS DONE UNDER STERILE CONDITIONS. I CHECKED LATERALITY WITH THE PATIENT AND THE STAFF IN THE PROCEDURE ROOM AT THE MOMENT OF THE TIME OUT. UNDER FLUOROSCOPIC GUIDANCE, TARGET WAS SELECTED AT THE LEFT GREATER TROCHANTER OF THE FEMUR. LIDOCAINE WAS USED TO NUMB THE SKIN AND THE SUBCUTANEOUS TISSUE BELOW IT. SPINAL NEEDLE, 22-GAUGE WAS ADVANCED UNDER FLUOROSCOPIC GUIDANCE AND FOLLOWING PATIENT FEEDBACK UNTIL THE TARGET WAS TOUCHED. POSITION OF THE NEEDLE WAS VERIFIED WITH AP AND LATERAL VIEWS. AFTER PROPER POSITION OF THE NEEDLE WAS ACHIEVED, ISOVUE M DYE, 30%, 0.25 ML WAS INJECTED SHOWING ADEQUATE SPREAD OF THE DYE. THEN A SOLUTION OF 10 ML OF BUPIVACAINE 0.25% AND KENALOG 40 MG WAS INJECTED. THERE WAS NO EVIDENCE OF BLOOD, PARESTHESIA, OR CEREBROSPINAL FLUID.THE PATIENT WAS SENT TO THE RECOVERY ROOM. THE PATIENT WAS MOVING THE EXTREMITIES AND DOING WELL. THERE WERE NO COMPLICATIONS DURING THE PROCEDURE. POSTOPERATIVE NOTE: I DISCUSSED ALTERNATIVES WITH THE PATIENT. WE WILL SEE THE PATIENT BACK IN SEVERAL WEEKS FOR REEVALUATION OF THE CASE. I AM LOOKING FOR LONG-LASTING PAIN RELIEF WITH THIS INTERVENTION. FLUOROSCOPIC TIME WAS 19 SECONDS. FURTHER RECOMMENDATIONS WILL BE DONE DEPENDING ON HOW THE PATIENT DOES. THERE WERE NO COMPLICATIONS.I, TIERNEY STEINER, DOCUMENTED THE ABOVE INFORMATION ACTING A SCRIBE FOR DR. KENNEY. I HAVE REVIEWED THE ABOVE DOCUMENT, WRITTEN BY TIERNEY SULLIVAN AND I VERIFY THAT IT IS ACCURATE. DIAGNOSTIC IMAGING [facility] FLUORO GUIDANCE (PAIN)[id number] PROCEDURE CODES 85903 DRAIN/INJ JOINT/BURSA W/O [place] 6045F RADXPS IN END [id number] PXD [id number] NEEDLE LOCALIZATION BY XRAY DISPOSITION & COMMUNICATION FOLLOW UP 3 WEEKS ELECTRONICALLY SIGNED BY POOJA KENNEY MD ON 03/18/2017 AT 12:30 PM EDT DISCLAIMER : THIS IS A VISIT SUMMARY EXTRACTED FROM THE [facility] CHART. IT IS NOT A COPY OF THE [facility] PROGRESS NOTE. TRACEY
== END ==
LOC: M PAIN 09:00
PROVIDERS: ATTEND Anesthesiology
DX: G89.29 Other chronic pain (principal); M70.61 Trochanteric bursitis, right hip; M70.62 Trochanteric bursitis, left hip; I10 Essential (primary) hypertension; E78.5 Hyperlipidemia, unspecified; F41.9 Anxiety disorder, unspecified; F32.9 Major depressive disorder, single episode, unspecified; E03.9 Hypothyroidism, unspecified; F10.21 Alcohol dependence, in remission; F17.210 Nicotine dependence, cigarettes, uncomplicated; Z88.8 Allergy status to other drugs, medicaments and biological substances; Z79.82 Long term (current) use of aspirin; Z79.899 Other long term (current) drug therapy
CPT/HCPCS: 20610; 77002; J3301; Q9967

== ENCOUNTER → 2017-03-25 | Outpatient (CLI) | payer MEDICARE ==
[~2017-03-25] MED LIST changes: -BUPIVACAINE HCL 0.25% 10 ML VIAL As Ordered ONE; -BUPIVACAINE HCL 0.25% 30 ML VIAL As Ordered ONE; +CIPR500T3 PO; +CLON-412 PO; -FOLI1TAB2 PO; +FOLI1TAB4 PO; -ISOVUE-M 300 61% 15ML VIAL (Q9967) As Ordered ONE; -LIDOCAINE 1% SDV INJ 30 ML VIAL As Ordered ONE; -TRIAMCINOLONE ACETONIDE SUSP 40 MG/ML VIAL (J3301) As Ordered ONE; +TYLE650T35 PO; +VENL150C43 PO; +VITA-182 PO; -VITA100041 PO; -ZETI10TA2 PO; +ZETI10TA30 PO; -diazePAM 5 MG TAB As Ordered ONE; -oxyCODONE 5MG TAB As Ordered ONE
--- NOTE | 2017-04-14 03:24 | ECWPNPC ---
PATIENT NAME: FRED MICHELLE : 1950 GENDER: FEMALE VISIT DATE: 03/25/2017 DISCHARGE DATE: 03/25/17 1152 VISIT LOCKED DATE TIME: PHYSICIAN: AMADOU STINSON RESOURCE: AMADOU STINSON REASON FOR APPOINTMENT 1. POST JUNITO HIP INJ HISTORY OF PRESENT ILLNESS HISTORY OF PRESENT ILLNESS: PAIN THE PATIENT DESCRIBES THE PAIN... FALL RISK SCREENING: SCREENING :NO FALLS IN THE PAST YEAR TODAY'S VISIT: NOTES: S/P BILATERAL HIP BURSA INJECTION COMPLETED ON 03/11/17. REPORTS NO IMPROVEMENT IN THIS AREA. WAS NOT ABLE TO TOLERATE CYMBALTA DUE TO NAUSEA, GI ISSUES.STOPPED IT YESTERDAY. RESTARTED THE VENLAFEXIDINE AND A SLEEPING PILL. STILL HAVING THROBBING NUMNB PAIN IN BOTH THIGHS. NOTES THE PAIN THAT WAS RADIATING INTO RIGHT GROIN HAS IMPROVED POST BURSAINJECTION. HAS NOT NO RETURN OF BACK PAIN. . CURRENT MEDICATIONS TAKING CARVEDILOL 12.5 MG TABLET ORALLY TWICE A DAY TAKING AMLODIPINE BESYLATE 10 MG TABLET 1 TABLET ORALLY ONCE A DAY TAKING CLONAZEPAM 1 MG TABLET 1 TABLET ORALLY TWICE A DAY TAKING ASPIRIN 81 MG TABLET CHEWABLE 1 TABLET ORALLY ONCE A DAY TAKING CALCIUM + D3 600-200 MG-UNIT TABLET 1 TAB ORALLY BID TAKING VITAMIN D3 1000 UNIT CAPSULE 1 CAPSULE ORALLY BID TAKING MULTI FOR HER - TABLET 1 TAB ORALLY DAILY TAKING LISINOPRIL 40 MG TABLET 1 TABLET ORALLY ONCE A DAY TAKING ZETIA 10 MG TABLET 1 TABLET ORALLY ONCE A DAY TAKING CLONIDINE HCL 0.1 MG TABLET 1 TABLET AT BEDTIME ORALLY NEEDED, NOTES: > 4 MONTHS TAKING PRAZOSIN HCL 1 MG CAPSULE 1 CAPSULE AT BEDTIME ORALLY ONCE A DAY TAKING VENLAFAXINE HCL ER 150 MG CAPSULE EXTENDED RELEASE 24 HOUR 1 CAPSULE WITH FOOD ORALLY ONCE A DAY NOT-TAKING CYMBALTA 60 MG CAPSULE DELAYED RELEASE PARTICLES 1 CAPSULE ORALLY ONCE A DAY, NOTES: 03/10/17 2100 NOT-TAKING MELOXICAM 15 MG TABLET 1 TABLET ORALLY ONCE A DAY, NOTES: NOT TAKING NOT-TAKING NORCO 5-325 MG TABLET 1 TABLET NEEDED ORALLY BEFORE BEDTIME, NOTES: NOT TAKING NOT-TAKING BETAMETHASONE DIPROPIONATE 0.05 % LOTION 1 APPLICATION TO ANTERIOR CHEST EXTERNALLY TWICE A DAY NOT-TAKING PROZAC 10 MG CAPSULE 1 CAPSULE IN THE MORNING ORALLY ONCE A DAY NOT-TAKING BACLOFEN 10 MG TABLET 1 TABLET WITH FOOD OR MILK ORALLY BEFORE BEDTIME NOT-TAKING DULCOLAX STOOL SOFTENER 100 MG CAPSULE 1 CAPSULE NEEDED ORALLY ONCE A DAY, NOTES: > 2 MONTHS NOT-TAKING OMEPRAZOLE 20 MG CAPSULE DELAYED RELEASE 1 CAPSULE ORALLY BID NOT-TAKING LOPERAMIDE HCL 2 MG TABLET 1 TABLET AFTER WATERY BOWEL MOVEMENT ORALLY MAY REPEAT IN 2 HOURS IF INITIAL DOSE WAS INEFFECTIVE NOT-TAKING TIZANIDINE HCL 2 MG TABLET 1 TABLET NEEDED ORALLY BEFORE BEDTIME NOT-TAKING MIRALAX - POWDER 17 GRAMS ORALLY DAILY UNKNOWN LEVOTHYROXINE SODIUM 25 MCG TABLET 1 TABLET ON AN EMPTY STOMACH IN THE MORNING ORALLY ONCE A DAY MEDICATION LIST REVIEWED AND RECONCILED WITH THE PATIENT PAST MEDICAL HISTORY HTN (ETT 06/11 NEG) ANXIETY DEPRESSION HYPOTHYROID WITH 2 SMALL CYSTS HX OF C.DIFF TOBACCO ABUSE ETOH ABUSE IN REMISSION ALLERGIES STATINS (FOR ALLERGY USE ONLY): ACHY, PAINFUL MUSCLES: ALLERGY MAGNESIUM: DIARRHEA: ALLERGY TRAZODONE HCL: MUSCLE ACHES: ALLERGY CYMBALTA: SEVERE STOMACH ACHE: SIDE EFFECTS SOCIAL HISTORY GENERAL: TOBACCO USE ARE YOU A:CURRENT SMOKER HOW MANY CIGARETTES A DAY DO YOU SMOKE?6-10 HOW SOON AFTER YOU WAKE UP DO YOU SMOKE YOUR FIRST CIGARETTE?6-30 MIN HOW OFTEN DO YOU SMOKE CIGARETTES?EVERY DAY PATIENT COUNSELED ON THE DANGERS OF TOBACCO USE AND URGED TO QUIT:02/18/2017 ARE YOU INTERESTED IN QUITTING?THINKING ABOUT QUITTING HAS PAMPHLETS AND OTHER MATERIAL AT HOME COUNSELED THE PATIENT ON SMOKING CESSATION, EDUCATION [id number]/25/2017 SMOKING CESSATION INFORMATION GIVEN03/25/2017 ALCOHOL SCREENING DID YOU HAVE A DRINK CONTAINING ALCOHOL IN THE PAST YEAR?NO POINTS0 INTERPRETATIONNEGATIVE CAFFEINE CAFFEINE USE?NO OCCUPATION: RETIRED. DIET: REGULAR. EXERCISE: WALKS, SWIMS. MARITAL STATUS: . OTHERS AT HOME: NONE. [id number] EDUCATION LEVEL OF EDUCATION:NOT FINISHED [facility] PFS, CLERGY, PUBLIC HEALTH REFERRALS PFS REFERRAL NEEDED? NO , CLERGY REFERRAL NEEDED? NO , PUBLIC HEALTH REFERRAL NEEDED? NO , WAS THE PROVIDER NOTIFIED OF ANY PERTINENT INFO? NO . PATIENT: ____. REVIEW OF SYSTEMS REVIEWED BY: PROVIDER: AMADOU MÁRQUEZ . CONSTITUTIONAL: ANY CHANGE IN YOUR MEDICAL CONDITION? NO . CHILLS NO . FEVER NO . INFECTION: DO YOU HAVE NEW INFECTIONS? NO . DO YOU HAVE HISTORY OF MRSA? NO . MUSCULOSKELETAL: ANY NEW PATTERNS OF PAIN OR NUMBNESS? NO . GASTROENTEROLOGY: GENERAL STOMACH DISTRESS WITH CYMBALTA RESOVING WITH D/C OF MED. CONSTIPATION IMPROVING . ANY NEW CHANGE IN BOWEL CONTROL? NO . GENITOURINARY: ANY NEW CHANGE IN BLADDER CONTROL? NO . IS THERE A CHANCE YOU COULD BE ? NO . HEMATOLOGY/LYMPH: DO YOU TAKE ANY BLOOD THINNERS? (FOR EXAMPLE- COUMADIN, PLAVIX, AGGRENOX, PLATEL, PRADAXA, OR XARELTO) NO . WHEN WAS YOUR LAST DOSE? DATE: TIME: . NEUROLOGY: HAVE YOU FALLEN IN THE PAST 6 MONTHS? NO . ANY NEW EXTREMITY NUMBNESS OR WEAKNESS? NO . CARDIOLOGY: DO YOU HAVE A PACEMAKER OR DEFIBRILLATOR? NO . CHEST PAIN PATIENT DENIES . RESPIRATORY: HAVE YOU BEEN SICK IN THE PAST WEEK? NO . FEVER NO . FLU LIKE SYMPTOMS? NO . COUGH NO . INTEGUMENTARY: DO YOU HAVE ANY RASHES OR OPEN SORES? NO . ALLERGIC/IMMUNO: ARE YOU ALLERGIC TO SHELLFISH OR IV DYE? NO . ANY NEW ALLERGIES? YES CYMBALTA /SIDE EFFECTS. STOMACH ACHE N&V . PSYCHIATRIC: DO YOU HAVE THOUGHTS OF HURTING YOURSELF OR SOMEONE ELSE? NO . ARE YOU ABUSED, NEGLECTED, OR IN AN UNSAFE ENVIRONMENT? NO . ENDOCRINOLOGY: ARE YOU DIABETIC? NO . OTHER: DO YOU NEED ANY PRESCRIPTIONS? NO . IF YES, PLEASE LIST: ____ . ANY NEW PROBLEMS WITH YOUR MEDICATIONS? NO . WHEN DID YOU LAST EAT? ____ . WHEN DID YOU LAST DRINK? ____ . WHAT DID YOU LAST DRINK? ____ . NAME OF PERSON DRIVING YOU HOME? ____ . DO YOU HAVE ANY OTHER QUESTIONS OR CONCERNS NO . VITAL SIGNS WT 137.0 LBS, HT 62.5 IN, BMI 24.66 INDEX, BP 100/64 MM HG, HR 71 /MIN, RR 16 /MIN, TEMP 97.1 F, OXYGEN SAT % 100%, NA INITIALS TL 1101, REVIEWED BY: KG. EXAMINATION GENERAL EXAMINATION: PSYCHALERT , ORIENTED X 3 , FRUSTRATED. LUNGS:CLEAR TO AUSCULTATION BILATERALLY. HEART:HEART RATE REGULAR. MUSCULOSKELETAL: POINT TENDERNESS OVER RIGHT> LEFT TROCANTERIC BURSA, WELL LEFT >RRIGHT PIRIFORMIS MUSCLE GROUP AND ILIOTIBIAL BAND. MINIMAL TENDERNESS WITH PALPATION OVER LUMBAR SPINOUS PROCESSES AND ACROSS THE LUMBOSACRAL AXIS. SLOW TO RISE TO STANDING POSITION. POSTURE STOOPED. GAIT SLOW, WIDEBASED, ANTALGIC.. 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 PREVENTIVE MEDICINE PAIN CLINIC TEACHING: PROCEDURE TEACHING WENT OVER PROCEDURE WITH PT WHO VERBALIZES UNDERSTANDING. PROCEDURE CODES FA211 ESTABILISHED PATIENT NEW [facility] CHARGE G8730 PAIN ASSESS POS TOOL F/U PLAN DOC G8427 DOC MEDS VERIFIED W/PT OR RE DISPOSITION & COMMUNICATION FOLLOW UP AFTER INJECTION (REASON: ILIOTIBIAL LIGAMENT/BAND INJECTION LEFT SIDE) ELECTRONICALLY SIGNED BY ESDRAS ANDERSON ON 04/13/2017 AT 02:02 PM EDT DISCLAIMER : THIS IS A VISIT SUMMARY EXTRACTED FROM THE [employer] CHART. IT IS NOT A COPY OF THE [employer] PROGRESS NOTE. TRACEY
== END ==
LOC: M PAIN 10:40
PROVIDERS: ATTEND Nurse Practitioner Family
DX: G89.29 Other chronic pain (principal); M76.32 Iliotibial band syndrome, left leg; M70.61 Trochanteric bursitis, right hip; M70.62 Trochanteric bursitis, left hip; I10 Essential (primary) hypertension; E78.5 Hyperlipidemia, unspecified; F34.1 Dysthymic disorder; F17.210 Nicotine dependence, cigarettes, uncomplicated; F10.10 Alcohol abuse, uncomplicated; E03.9 Hypothyroidism, unspecified; D75.89 Other specified diseases of blood and blood-forming organs; R93.41 Abnormal radiologic findings on diagnostic imaging of renal pelvis, ureter, or bladder; Z88.8 Allergy status to other drugs, medicaments and biological substances; Z79.82 Long term (current) use of aspirin; Z79.899 Other long term (current) drug therapy
CPT/HCPCS: 81001; 88108; 99406; G0463

== ENCOUNTER → 2017-03-25 | Outpatient (REF) | payer MEDICARE ==
[2017-03-25 16:56] LABS: CALCIUM OXALATE CRYSTALS MODERATE
== END ==
LOC: M SFHCLERA 14:33
PROVIDERS: ATTEND Family Medicine
DX: R93.41 Abnormal radiologic findings on diagnostic imaging of renal pelvis, ureter, or bladder (principal)

== ENCOUNTER → 2017-04-07 | Outpatient (CLI) | payer MEDICARE ==
[~2017-04-07] MED LIST changes: +ISOVUE-M 300 61% 15ML VIAL (Q9967) As Ordered ONE; +LIDOCAINE 1% SDV INJ 30 ML VIAL As Ordered ONE; +diazePAM 5 MG TAB As Ordered ONE; +methylPREDNISolone SUSP 40 MG/ML (DEPO-medrol) VIAL (J1030) As Ordered ONE; +oxyCODONE 5MG TAB As Ordered ONE
--- NOTE | 2017-04-07 15:07 | REP ---
Partial lumbar spine series: There is. . History: Injection procedure for pain. 21 seconds of fluoroscopy time is reported. Findings: A sequence of three fluoroscopically obtained last image hold procedural spot radiographs of the lumbar spine document needle position and contrast injection associated with injection procedure. Signed by Javier Abraham MD 04/07/2017 02:58 P
--- NOTE | 2017-04-12 23:55 | ECWPNPC ---
PATIENT NAME: FRED MICHELLE : 1950 GENDER: FEMALE VISIT DATE: 04/07/2017 DISCHARGE DATE: 04/07/17 1510 VISIT LOCKED DATE TIME: PHYSICIAN: POOJA KENNEY RESOURCE: POOJA KENNEY REASON FOR APPOINTMENT 1. ILIOTIBIAL LIGAMENT HISTORY OF PRESENT ILLNESS HISTORY OF PRESENT ILLNESS: PAIN THE PATIENT DESCRIBES THE PAIN... FALL RISK SCREENING: SCREENING :NO FALLS IN THE PAST YEAR CURRENT MEDICATIONS TAKING CARVEDILOL 12.5 MG TABLET ORALLY TWICE A DAY, NOTES: 04-07-17599 TAKING AMLODIPINE BESYLATE 10 MG TABLET 1 TABLET ORALLY ONCE A DAY, NOTES: 04-07-17599 TAKING CLONAZEPAM 1 MG TABLET 1 TABLET ORALLY TWICE A DAY, NOTES: 04-07-17599 TAKING ASPIRIN 81 MG TABLET CHEWABLE 1 TABLET ORALLY ONCE A DAY, NOTES: 04-06-172099 TAKING CALCIUM + D3 600-200 MG-UNIT TABLET 1 TAB ORALLY BID, NOTES: 599 TAKING VITAMIN D3 1000 UNIT CAPSULE 1 CAPSULE ORALLY BID, NOTES: 04-07-17599 TAKING MULTI FOR HER - TABLET 1 TAB ORALLY DAILY, NOTES: 04-07-17599 TAKING LISINOPRIL 40 MG TABLET 1 TABLET ORALLY ONCE A DAY, NOTES: 04-06-172099 TAKING ZETIA 10 MG TABLET 1 TABLET ORALLY ONCE A DAY, NOTES: 04-06-172099 TAKING VENLAFAXINE HCL ER 150 MG CAPSULE EXTENDED RELEASE 24 HOUR 1 CAPSULE WITH FOOD ORALLY ONCE A DAY, NOTES: 04-07-17599 TAKING LEVOTHYROXINE SODIUM 25 MCG TABLET 1 TABLET ON AN EMPTY STOMACH IN THE MORNING ORALLY ONCE A DAY, NOTES: 04-07-17599 NOT-TAKING PRAZOSIN HCL 1 MG CAPSULE 1 CAPSULE AT BEDTIME ORALLY ONCE A DAY MEDICATION LIST REVIEWED AND RECONCILED WITH THE PATIENT PAST MEDICAL HISTORY HTN (ETT 06/11 NEG) ANXIETY DEPRESSION HYPOTHYROID WITH 2 SMALL CYSTS HX OF C.DIFF TOBACCO ABUSE ETOH ABUSE IN REMISSION ALLERGIES STATINS (FOR ALLERGY USE ONLY): ACHY, PAINFUL MUSCLES: ALLERGY MAGNESIUM: DIARRHEA: ALLERGY TRAZODONE HCL: MUSCLE ACHES: ALLERGY CYMBALTA: SEVERE STOMACH ACHE: SIDE EFFECTS REVIEW OF SYSTEMS REVIEWED BY: PROVIDER: . CONSTITUTIONAL: ANY CHANGE IN YOUR MEDICAL CONDITION? NO . CHILLS NO . FEVER NO . INFECTION: DO YOU HAVE NEW INFECTIONS? NO . DO YOU HAVE HISTORY OF MRSA? NO . MUSCULOSKELETAL: ANY NEW PATTERNS OF PAIN OR NUMBNESS? NO . GASTROENTEROLOGY: ANY NEW CHANGE IN BOWEL CONTROL? NO . GENITOURINARY: ANY NEW CHANGE IN BLADDER CONTROL? NO, HAS A SPOT ON HER BLADDER AND IS GOING TO SEE UROLOGIST TOMORROW . IS THERE A CHANCE YOU COULD BE ? NO . HEMATOLOGY/LYMPH: DO YOU TAKE ANY BLOOD THINNERS? (FOR EXAMPLE- COUMADIN, PLAVIX, AGGRENOX, PLATEL, PRADAXA, OR XARELTO) NO . WHEN WAS YOUR LAST DOSE? DATE: TIME: . NEUROLOGY: HAVE YOU FALLEN IN THE PAST 6 MONTHS? YES . ANY NEW EXTREMITY NUMBNESS OR WEAKNESS? NO . CARDIOLOGY: DO YOU HAVE A PACEMAKER OR DEFIBRILLATOR? NO . RESPIRATORY: HAVE YOU BEEN SICK IN THE PAST WEEK? NO . FEVER NO . FLU LIKE SYMPTOMS? NO . COUGH NO . INTEGUMENTARY: DO YOU HAVE ANY RASHES OR OPEN SORES? NO . ALLERGIC/IMMUNO: ARE YOU ALLERGIC TO SHELLFISH OR IV DYE? NO . ANY NEW ALLERGIES? NO . PSYCHIATRIC: DO YOU HAVE THOUGHTS OF HURTING YOURSELF OR SOMEONE ELSE? NO . ARE YOU ABUSED, NEGLECTED, OR IN AN UNSAFE ENVIRONMENT? NO . ENDOCRINOLOGY: ARE YOU DIABETIC? NO . OTHER: DO YOU NEED ANY PRESCRIPTIONS? NO . IF YES, PLEASE LIST: ____ . ANY NEW PROBLEMS WITH YOUR MEDICATIONS? NO . WHEN DID YOU LAST EAT? 04-07-17 0500 . WHEN DID YOU LAST DRINK? 04-07-17 0900 . WHAT DID YOU LAST DRINK? WATER . NAME OF PERSON DRIVING YOU HOME? [employer]BER THRASHER . DO YOU HAVE ANY OTHER QUESTIONS OR CONCERNS NO . VITAL SIGNS WT 135.6 LBS, HT 62.5 IN, BMI 24.40 INDEX, BP 111/68 MM HG, HR 82 /MIN, RR 16 /MIN, TEMP 97.2 F, OXYGEN SAT % 95%, NA INITIALS TL 1157, REVIEWED BY: CM. ASSESSMENTS INTERVERTEBRAL DISC DISORDERS WITH RADICULOPATHY, LUMBAR REGION - M51.16 (PRIMARY) PROCEDURES PRE PROCEDURE DIAGNOSIS LUMBAR DISC DISORDER WITH RADICULOPATHY POST PROCEDURE DIAGNOSIS LUMBAR DISC DISORDER WITH RADICULOPATHY PROCEDURE LUMBAR EPIDURAL STEROID INJECTION UNDER FLUOROSCOPIC GUIDANCE SURGEON DR. POOJA KENNEY OPTICAL LABORATORY MANAGER NONE ANESTHESIA LOCAL PRE PROCEDURE NOTE THE PATIENT HAS A HISTORY OF CHRONIC LOW BACK PAIN. I EVALUATE THE PATIENT AND REVIEWED THE CHART. I WENT OVER THE RISKS, ALTERNATIVES, AND BENEFITS ASSOCIATED WITH THIS PROCEDURE. THE PATIENT WOULD LIKE TO PROCEED AND GIVE CONSENT TO PERFORMED THE PROCEDURE. THE PATIENT DENIES UNEXPLAINABLE WEIGHT LOSS, FEVER, CHILLS, OR NEW CHANGES IN URINARY OR BOWEL CONTROL. DESCRIPTION OF PROCEDURE THE PATIENT WAS BROUGHT TO THE PROCEDURE ROOM AND PLACED IN THE PRONE POSITION. THE LUMBOSACRAL AREA WAS CLEANED WITH BETADINE SOLUTION AND DRAPED ASEPTICALLY. THE PROCEDURE WAS DONE UNDER STERILE CONDITIONS. I CHECKED LATERALITY AND THE LEVEL WHERE THE PROCEDURE WAS GOING TO BE PERFORMED WITH THE PATIENT AND THE SUPPORTING STAFF AT THE MOMENT OF THE TIME OUT IN THE PROCEDURE ROOM. UNDER FLUOROSCOPIC GUIDANCE, THE TARGET POINT WAS SELECTED AT THE INTERLAMINAR LEVEL OF L4-L5. LIDOCAINE WAS USED TO NUMB THE SKIN AND THE SUBCUTANEOUS TISSUE BELOW IT. EPIDURAL TUOHY NEEDLE, 17-GAUGE, WAS ADVANCED UNDER FLUOROSCOPIC GUIDANCE AND FOLLOWING PATIENT FEEDBACK UNTIL THE EPIDURAL SPACE WAS REACHED, 7 CM DEEP INTO THE SKIN BY THE LOSS OF RESISTANCE TECHNIQUE. ISOVUE M DYE 30%, 0.25 ML, WAS INJECTED SHOWING ADEQUATE SPREAD OF THE DYE. THEN, A SOLUTION OF 3 ML OF NORMAL SALINE WITH DEPO-MEDROL 60 MG WAS INJECTED SLOWLY FOLLOWING PATIENT FEEDBACK. THERE WAS NO EVIDENCE OF BLOOD, PARESTHESIA OR CEREBROSPINAL FLUID DURING THE PROCEDURE. THE PATIENT WAS SENT TO THE RECOVERY ROOM. THE PATIENT WAS MOVING THE EXTREMITIES AND DOING WELL. THERE WAS NO COMPLICATION DURING THE PROCEDURE. FLUOROSCOPY TIME WAS 21 SECONDS. POST PROCEDURE NOTE THE PATIENT WILL BE SEEN IN A FOLLOW UP IN THE NEXT FEW WEEKS. INSTRUCTIONS WERE GIVEN, QUESTIONS WERE ANSWERED, AND THE PATIENT EXPRESSED UNDERSTANDING AND AGREES WITH THE PLAN. I, TIERNEY STEINER, DOCUMENTED THE ABOVE INFORMATION ACTING A SCRIBE FOR DR. KENNEY. I HAVE REVIEWED THE ABOVE DOCUMENT, WRITTEN BY TIERNEY SULLIVAN AND I VERIFY THAT IT IS ACCURATE DIAGNOSTIC IMAGING [facility] FLUORO GUIDE SPINE INJECTION (PAIN)[id number] PROCEDURE CODES 99152 LUMBAR/SACRAL W/ IMAGING 6045F RADXPS IN END [id number] PXD DISPOSITION & COMMUNICATION FOLLOW UP 3 WEEKS ELECTRONICALLY SIGNED BY POOJA KENNEY MD ON 04/12/2017 AT 08:55 PM EDT DISCLAIMER : THIS IS A VISIT SUMMARY EXTRACTED FROM THE [employer] CHART. IT IS NOT A COPY OF THE [employer] PROGRESS NOTE. MTDD
== END ==
LOC: M PAIN 11:40
PROVIDERS: ATTEND Anesthesiology
DX: G89.29 Other chronic pain (principal); M51.16 Intervertebral disc disorders with radiculopathy, lumbar region; F41.9 Anxiety disorder, unspecified; F32.9 Major depressive disorder, single episode, unspecified; E03.9 Hypothyroidism, unspecified; F17.200 Nicotine dependence, unspecified, uncomplicated; F10.21 Alcohol dependence, in remission; Z88.8 Allergy status to other drugs, medicaments and biological substances; Z79.82 Long term (current) use of aspirin; Z79.899 Other long term (current) drug therapy
CPT/HCPCS: 62323; J1030; Q9967

== ENCOUNTER → 2017-04-08 | Outpatient (CLI) | payer MEDICARE ==
[~2017-04-08] MED LIST changes: -ISOVUE-M 300 61% 15ML VIAL (Q9967) As Ordered ONE; -LIDOCAINE 1% SDV INJ 30 ML VIAL As Ordered ONE; -diazePAM 5 MG TAB As Ordered ONE; -methylPREDNISolone SUSP 40 MG/ML (DEPO-medrol) VIAL (J1030) As Ordered ONE; -oxyCODONE 5MG TAB As Ordered ONE
[2017-04-08 19:06] LABS: ANION GAP 6 MEQ/L (8-16); BLOOD UREA NITROGEN 9 MG/DL (7-18); CALCIUM LEVEL 9.7 MG/DL (8.8-10.2); CARBON DIOXIDE LEVEL 30 MEQ/L (21-32); CHLORIDE LEVEL 104 MEQ/L (98-107); CREATININE FOR GFR 0.76 MG/DL (0.55-1.02); GLOMERULAR FILTRATION RATE > 60.0 (>45); GLUCOSE, FASTING 102 MG/DL (80-110); POTASSIUM SERUM 4.3 MEQ/L (3.5-5.1); SODIUM LEVEL 140 MEQ/L (136-145)
== END ==
LOC: M SMT 14:47
PROVIDERS: ATTEND Nurse Practitioner Women's Health
DX: R93.41 Abnormal radiologic findings on diagnostic imaging of renal pelvis, ureter, or bladder (principal); Z79.899 Other long term (current) drug therapy
CPT/HCPCS: 36415; 51798; 80048; 81001; 87086; G0463

== ENCOUNTER → 2017-04-14 | Outpatient (CLI) | payer MEDICARE ==
[~2017-04-14] MED LIST changes: +ISOVUE-370 76% 100ML VIAL (Q9967) As Ordered ONE
--- NOTE | 2017-04-14 18:21 | REP ---
CT ABDOMEN AND PELVIS WITHOUT AND WITH IV CONTRAST: 04/14/2017: Clinical history: Recent MRI hip showing nodular focus at the base of the bladder for further evaluation. Technique: Precontrast scanning through the abdomen pelvis followed by bolus of 100 mL Isovue 370 scanning through the abdomen pelvis and delayed scan also performed. Coronal and sagittal reconstructions after delayed scan. Comparison: MRI hip 02/23/2017, CT abdomen pelvis without contrast 10/21/2016. CT abdomen: Lung bases remain clear. The heart is not enlarged. There is no pericardial thickening or effusion. No gross hiatal hernia. There is no hepatosplenomegaly, focal hepatic or splenic lesion, intrahepatic biliary dilatation or ascites in the upper abdomen. Gallbladder partially contracted. No calcified stone or mass seen lucency near the head of the pancreas represents a diverticulum off the junction of the second and third portion of the duodenum. Pancreas shows no ductal dilatation, stone or mass, no peripancreatic inflammatory change or adenopathy. Adrenal glands were normal. Kidneys show no stone, hydronephrosis, cyst or solid mass on either side. Calcification on image 72 of series 201 and 301 represents a phlebolith in gonadal vein. No ureteral stone no ureteral dilatation. Colon and small bowel loops show no acute inflammatory changes. There are scattered diverticula in the left colon without diverticulitis. Small bowel loops intact. No ventral bowel herniation. There is a small ventral hernia of tiny amount of omental fat only at the umbilicus. Bones show diffuse degenerative disc changes, least at L4-5 worst at L3-4 and extending into the lower thoracic spine with disc space narrowing and marginal osteophytes. Facet arthropathy at L2-3 through L5, S1 with central canal stenosis. Tight at the L4-5 nearly as severe at L3-4, L2-3 and less severe at L1-2 and L5-S1. Visualized ribs intact. CT pelvis: The bony hips show degenerative changes at the acetabular roof with marginal osteophytes and rim osteophytes of the femoral head small. There are also calcifications near the greater trochanter right and left side. Iliac wings, sacrum unremarkable except for some sclerosis along those SI joints, unchanged. Hips without fracture or focal lesion. Symphysis pubis and pubic rami intact. Distal ureters without dilatation or stone on the delayed images. The bladder is partially filled. Uterus is absent. Vaginal cuff intact. The sagittal image number 71 of series 403 shows that same tiny nodular focus at the bladder base which is seen in part on the axial images as well. I cannot exclude a polyp on that bladder wall. There is no ventral or inguinal hernia in the pelvis. Small bowel loops grossly intact. A few scattered diverticula in the distal left colon and sigmoid without diverticulitis or colitis. The cecum and appendix are normal. No pelvic mass or free fluid. Impression: 1. There is evidence of a small approximately 5 mm filling defect in the floor of the bladder near the midline, which may be a small polyp. The patient is status post hysterectomy. The kidneys show no stone. There is no hydronephrosis, hydroureter or ureteral stone. 2. No solid or cystic mass in the kidneys. No bladder wall thickening or mass but bladder filling is limited. 3. Degenerative changes of the spine with significant central canal stenosis L2-3 through L4-5 and facet arthritis also significant. Advanced atherosclerotic calcifications aorta without aneurysm. Solid organs in the upper abdomen without acute finding. 4. I would recommend consideration for direct visualization of the bladder. Signed by Austin Lindsey MD 04/15/2017 10:43 A
== END ==
LOC: M RAD 16:31
PROVIDERS: ATTEND Nurse Practitioner Women's Health
DX: R93.41 Abnormal radiologic findings on diagnostic imaging of renal pelvis, ureter, or bladder (principal)
CPT/HCPCS: 74178; Q9967

== ENCOUNTER → 2017-04-29 | Outpatient (CLI) | payer MEDICARE ==
[~2017-04-29] MED LIST changes: -ISOVUE-370 76% 100ML VIAL (Q9967) As Ordered ONE
--- NOTE | 2017-05-20 00:44 | ECWPNPC ---
PATIENT NAME: FRED MICHELLE : 1950 GENDER: FEMALE VISIT DATE: 04/29/2017 DISCHARGE DATE: 04/29/17 1011 VISIT LOCKED DATE TIME: PHYSICIAN: AMADOU STINSON RESOURCE: AMADOU STINSON REASON FOR APPOINTMENT 1. POST PROC HISTORY OF PRESENT ILLNESS TODAY'S VISIT: NOTES: RATES PAIN TODAY 9/10. DESCRIBES PAIN CONSTANT, ACHING, BURNING AND STABBING. IS S/P LESB AT L4-5 LEVELCOMPLETED ON 04/07/17. NOTES PAIN WAS 8/10 PRIOR TO PROCEDURE AND DECREASED TO 2/10 IMMEDIATELY AFTER. PAIN RETURNED TO 5-6/10 OVER THE NEXT 2 WEEKS AND THAN HAS RETURNED TO BASELINE. FELT MEDICATION DURING INJECTION AND INTO LEFT LEG ONLY. AREA OVER BACK WAS SOMEWHAT NUMB. IS BEING SCHEDULED FOR BLADDER SURGERY WITH DR ESPAZRA FOR REMOVAL OF A CYST ON 05/23/17.. HISTORY OF PRESENT ILLNESS: PAIN THE PATIENT DESCRIBES THE PAIN... FALL RISK SCREENING: SCREENING :NO FALLS IN THE PAST YEAR CURRENT MEDICATIONS TAKING CARVEDILOL 12.5 MG TABLET ORALLY TWICE A DAY TAKING AMLODIPINE BESYLATE 10 MG TABLET 1 TABLET ORALLY ONCE A DAY TAKING CLONAZEPAM 1 MG TABLET 1 TABLET ORALLY TWICE A DAY TAKING ASPIRIN 81 MG TABLET CHEWABLE 1 TABLET ORALLY ONCE A DAY TAKING CALCIUM + D3 600-200 MG-UNIT TABLET 1 TAB ORALLY BID TAKING VITAMIN D3 1000 UNIT CAPSULE 1 CAPSULE ORALLY BID TAKING MULTI FOR HER - TABLET 1 TAB ORALLY DAILY TAKING LISINOPRIL 40 MG TABLET 1 TABLET ORALLY ONCE A DAY TAKING ZETIA 10 MG TABLET 1 TABLET ORALLY ONCE A DAY TAKING VENLAFAXINE HCL ER 150 MG CAPSULE EXTENDED RELEASE 24 HOUR 1 CAPSULE WITH FOOD ORALLY ONCE A DAY TAKING LEVOTHYROXINE SODIUM 25 MCG TABLET 1 TABLET ON AN EMPTY STOMACH IN THE MORNING ORALLY ONCE A DAY NOT-TAKING BACTRIM DS 800-160 MG TABLET 1 TABLET ORALLY TWICE A DAY NOT-TAKING LIDOCAINE HCL JELLY HALF-WAY 2 % JELLY 1 APPLICATION TO AFFECTED AREA NEEDED INTRAVESICALLY PRIOR TO PROCEDURE UNKNOWN PRAZOSIN HCL 1 MG CAPSULE 1 CAPSULE AT BEDTIME ORALLY ONCE A DAY MEDICATION LIST REVIEWED AND RECONCILED WITH THE PATIENT PAST MEDICAL HISTORY HTN (ETT 06/11 NEG) ANXIETY DEPRESSION HYPOTHYROID WITH 2 SMALL CYSTS HX OF C.DIFF TOBACCO ABUSE ETOH ABUSE IN REMISSION ALLERGIES STATINS (FOR ALLERGY USE ONLY): ACHY, PAINFUL MUSCLES: ALLERGY MAGNESIUM: DIARRHEA: ALLERGY TRAZODONE HCL: MUSCLE ACHES: ALLERGY CYMBALTA: SEVERE STOMACH ACHE: SIDE EFFECTS PROZAC: NAUSEA/VOMITING: ALLERGY REVIEW OF SYSTEMS REVIEWED BY: PROVIDER: AMADOU MÁRQUEZ . CONSTITUTIONAL: ANY CHANGE IN YOUR MEDICAL CONDITION? NO . CHILLS NO . FEVER NO . INFECTION: DO YOU HAVE NEW INFECTIONS? NO . DO YOU HAVE HISTORY OF MRSA? NO . MUSCULOSKELETAL: ANY NEW PATTERNS OF PAIN OR NUMBNESS? YES, LBP AND BILAT HIP PAIN WORSE . GASTROENTEROLOGY: ANY NEW CHANGE IN BOWEL CONTROL? NO . GENITOURINARY: ANY NEW CHANGE IN BLADDER CONTROL? NO . IS THERE A CHANCE YOU COULD BE ? NO . HEMATOLOGY/LYMPH: DO YOU TAKE ANY BLOOD THINNERS? (FOR EXAMPLE- COUMADIN, PLAVIX, AGGRENOX, PLATEL, PRADAXA, OR XARELTO) NO . WHEN WAS YOUR LAST DOSE? DATE: TIME: . NEUROLOGY: HAVE YOU FALLEN IN THE PAST 6 MONTHS? NO . ANY NEW EXTREMITY NUMBNESS OR WEAKNESS? NO . CARDIOLOGY: DO YOU HAVE A PACEMAKER OR DEFIBRILLATOR? NO . RESPIRATORY: HAVE YOU BEEN SICK IN THE PAST WEEK? NO . FEVER NO . FLU LIKE SYMPTOMS? NO . COUGH NO . INTEGUMENTARY: DO YOU HAVE ANY RASHES OR OPEN SORES? NO . ALLERGIC/IMMUNO: ARE YOU ALLERGIC TO SHELLFISH OR IV DYE? NO . ANY NEW ALLERGIES? NO . PSYCHIATRIC: DO YOU HAVE THOUGHTS OF HURTING YOURSELF OR SOMEONE ELSE? NO . ARE YOU ABUSED, NEGLECTED, OR IN AN UNSAFE ENVIRONMENT? NO . ENDOCRINOLOGY: ARE YOU DIABETIC? NO . OTHER: DO YOU NEED ANY PRESCRIPTIONS? NO . IF YES, PLEASE LIST: ____ . ANY NEW PROBLEMS WITH YOUR MEDICATIONS? NO . WHEN DID YOU LAST EAT? ____ . WHEN DID YOU LAST DRINK? ____ . WHAT DID YOU LAST DRINK? ____ . NAME OF PERSON DRIVING YOU HOME? ____ . DO YOU HAVE ANY OTHER QUESTIONS OR CONCERNS NO . VITAL SIGNS WT 136.6 LBS, HT 62.5 IN, BMI 24.58 INDEX, BP 120/66 MM HG, HR 80 /MIN, RR 18 /MIN, TEMP 97.0 F, OXYGEN SAT % 95, SAFE IN ENV? (Y/N) YES, NA INITIALS MP 9:23, REVIEWED BY: EM. EXAMINATION GENERAL EXAMINATION: PSYCHALERT , ORIENTED X 3 , FRUSTRATED. LUNGS:CLEAR TO AUSCULTATION BILATERALLY. HEART:HEART RATE REGULAR. MUSCULOSKELETAL: POINT TENDERNESS OVER RIGHT> LEFT TROCANTERIC BURSA, WELL LEFT >RRIGHT PIRIFORMIS MUSCLE GROUP AND ILIOTIBIAL BAND. MINIMAL TENDERNESS WITH PALPATION OVER LUMBAR SPINOUS PROCESSES AND ACROSS THE LUMBOSACRAL AXIS. SLOW TO RISE TO STANDING POSITION. POSTURE STOOPED. GAIT SLOW, WIDEBASED, ANTALGIC.. 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 WILL DISCUSS WITH Marcus KENNEY. PROCEDURE CODES FA211 ESTABILISHED PATIENT [facility] CHARGE G8730 PAIN ASSESS POS TOOL F/U PLAN DOC G8427 DOC MEDS VERIFIED W/PT OR RE DISPOSITION & COMMUNICATION FOLLOW UP 2ND WEEK MAY (REASON: BACK PAIN/HIP PAIN) ELECTRONICALLY SIGNED BY ESDRAS ANDERSON ON 05/19/2017 AT 05:35 PM EDT DISCLAIMER : THIS IS A VISIT SUMMARY EXTRACTED FROM THE [employer] CHART. IT IS NOT A COPY OF THE [employer] PROGRESS NOTE. TRACEY
== END ==
LOC: M PAIN 09:20
PROVIDERS: ATTEND Nurse Practitioner Family
DX: G89.29 Other chronic pain (principal); M51.16 Intervertebral disc disorders with radiculopathy, lumbar region; M76.32 Iliotibial band syndrome, left leg; M70.61 Trochanteric bursitis, right hip; F41.9 Anxiety disorder, unspecified; F32.9 Major depressive disorder, single episode, unspecified; E03.9 Hypothyroidism, unspecified; Z72.0 Tobacco use; F10.21 Alcohol dependence, in remission; Z88.8 Allergy status to other drugs, medicaments and biological substances; Z79.82 Long term (current) use of aspirin; Z79.899 Other long term (current) drug therapy

== ENCOUNTER → 2017-05-04 | Outpatient (REF) | payer MEDICARE ==
[2017-05-04 18:17] LABS: INR 0.97
[2017-05-04 19:08] LABS: MEAN CORPUSCULAR HEMOGLOBIN 35.2 pg (27.0-33.0); MEAN CORPUSCULAR HGB CONC 33.6 g/dl (32.0-36.5); MEAN CORPUSCULAR VOLUME 104.9 fl (80.0-96.0); RED CELL DISTRIBUTION WIDTH 12.3 % (11.5-14.5); WHITE BLOOD COUNT 7.1 K/mm3 (4.0-10.0)
[2017-05-04 20:21] LABS: ANION GAP 9 MEQ/L (8-16); BLOOD UREA NITROGEN 11 MG/DL (7-18); CALCIUM LEVEL 9.4 MG/DL (8.8-10.2); CARBON DIOXIDE LEVEL 28 MEQ/L (21-32); CHLORIDE LEVEL 105 MEQ/L (98-107); CREATININE FOR GFR 0.65 MG/DL (0.55-1.02); GLOMERULAR FILTRATION RATE > 60.0 (>45); GLUCOSE, FASTING 77 MG/DL (80-110); POTASSIUM SERUM 4.1 MEQ/L (3.5-5.1); SODIUM LEVEL 142 MEQ/L (136-145)
== END ==
LOC: M LABSMT 14:48
PROVIDERS: ATTEND Urology
DX: Z01.818 Encounter for other preprocedural examination (principal); R93.41 Abnormal radiologic findings on diagnostic imaging of renal pelvis, ureter, or bladder

== ENCOUNTER → 2017-05-04 | Outpatient (CLI) | payer MEDICARE ==
--- NOTE | 2017-05-04 16:22 | REP ---
Chest two views HISTORY: Bladder filling defect Comparison: 12/14/2016 The lungs are clear. The heart is normal in size. The pulmonary vasculature is normal in appearance. The bony structure is intact. IMPRESSION: No acute disease. Signed by Serafin Lawson MD 05/04/2017 04:14 P
== END ==
LOC: M LRY 14:52
PROVIDERS: ATTEND Urology
DX: Z01.818 Encounter for other preprocedural examination (principal); R93.41 Abnormal radiologic findings on diagnostic imaging of renal pelvis, ureter, or bladder

== ENCOUNTER → 2017-05-06 | Outpatient (CLI) | payer MEDICARE ==
[2017-05-06 12:12] LABS: ALBUMIN 3.7 GM/DL (3.2-5.2); ALBUMIN/GLOBULIN RATIO 1.28 (1.00-1.93); ALKALINE PHOSPHATASE 56 U/L (45-117); ALT/SGPT 28 U/L (12-78); ANION GAP 5 MEQ/L (8-16); AST/SGOT 19 U/L (15-37); BILIRUBIN,DIRECT 0.1 MG/DL (0.0-0.2); BILIRUBIN,TOTAL 0.5 MG/DL (0.2-1.0); BLOOD UREA NITROGEN 9 MG/DL (7-18); CALCIUM LEVEL 9.9 MG/DL (8.8-10.2); CARBON DIOXIDE LEVEL 32 MEQ/L (21-32); CHLORIDE LEVEL 106 MEQ/L (98-107); CHOLESTEROL LEVEL 195 MG/DL (<200); CREATININE FOR GFR 0.76 MG/DL (0.55-1.02); GLOMERULAR FILTRATION RATE > 60.0 (>45); GLUCOSE, FASTING 119 MG/DL (80-110); POTASSIUM SERUM 4.5 MEQ/L (3.5-5.1); SODIUM LEVEL 143 MEQ/L (136-145); TOTAL PROTEIN 6.6 GM/DL (6.4-8.2); TRIGLYCERIDES LEVEL 121 MG/DL (<150)
[2017-05-06 12:19] LABS: MEAN CORPUSCULAR HEMOGLOBIN 35.3 pg (27.0-33.0); MEAN CORPUSCULAR HGB CONC 33.4 g/dl (32.0-36.5); MEAN CORPUSCULAR VOLUME 105.7 fl (80.0-96.0); RED CELL DISTRIBUTION WIDTH 12.7 % (11.5-14.5); WHITE BLOOD COUNT 5.9 K/mm3 (4.0-10.0)
== END ==
LOC: M LRY 08:25
PROVIDERS: ATTEND Internal Medicine Cardiovascular Disease
DX: Z01.818 Encounter for other preprocedural examination (principal); E78.5 Hyperlipidemia, unspecified; N32.89 Other specified disorders of bladder; F17.200 Nicotine dependence, unspecified, uncomplicated
CPT/HCPCS: 36415; 80048; 80061; 80076; 85027; 93005; 99406; G0463

== ENCOUNTER 2017-05-18 07:45 | Day surgery (SDC) | payer MEDICARE ==
[~2017-05-18] VITALS: Ht 156.2 cm; Wt 61.7 kg
[~2017-05-18 07:45] MED LIST changes: -CIPR500T3 PO; -TYLE650T35 PO
[2017-05-18] MEDS ORDERED: LR 1,000 ML IV ONE (08:00)
[2017-05-18] MEDS ORDERED: dexameTHASONE 4 MG/ML 1ML VIAL (J1100) As Ordered ONE (08:14)
[2017-05-18] MEDS ORDERED: ROCURONIUM BROMIDE 50 MG/5 ML VIAL/SYRINGE As Ordered ONE (08:14)
[2017-05-18] MEDS ORDERED: PROPOFOL 200 MG/20 ML VIAL As Ordered ONE (08:14)
[2017-05-18] MEDS ORDERED: LIDOCAINE 2% INJ 100 MG/5 ML SDV (FOR ANES.) As Ordered ONE (08:14)
[2017-05-18] MEDS ORDERED: MIDAZOLAM INJ 2 MG/2 ML VIAL (J2250) As Ordered ONE (08:16)
[2017-05-18] MEDS ORDERED: fentaNYL 250 MCG/5 ML INJECTION (J3010) As Ordered ONE (08:16)
[2017-05-18] MEDS ORDERED: ALBUTEROL SULFATE 2.5 MG/0.5 ML INH NEB SOLN As Ordered ONE (08:34)
[2017-05-18] MEDS ORDERED: ePHEDrine SULFATE 25 MG/5 ML(5MG/ML) SYRINGE As Ordered ONE (09:42)
[2017-05-18] MEDS ORDERED: ALBUTEROL SULFATE 2.5 MG/0.5 ML INH NEB SOLN INH ONE (09:45)
[2017-05-18] MEDS ORDERED: PHENYLephrine HCL 500 MCG/5 ML (100MCG/ML) SYRINGE (J2370) As Ordered ONE (09:47)
[2017-05-18] MEDS ORDERED: SUGAMMADEX SODIUM 500 MG/5 ML VIAL (BRIDION) As Ordered ONE (10:12)
[2017-05-18] MEDS ORDERED: TYLE650T35 PO (10:25)
[2017-05-18] MEDS ORDERED: CIPR500T3 PO (10:25)
[2017-05-18] MEDS ORDERED: FLUMAZENIL 0.5 MG/5 ML VIAL As Ordered ONE (10:38)
[2017-05-18] MEDS ORDERED: ACETAMINOPHEN 650MG ER TAB (TYLENOL ARTHRITIS) PO PRN (11:00)
[2017-05-18 13:15] VITALS: BP 106/62
[2017-05-18] MEDS ORDERED: CIPROFLOXACIN 500 MG TAB PO SCH (18:00)
--- NOTE | 2017-05-19 11:31 | RO ---
DATE OF SURGERY: 05/18/2017 PREOPERATIVE DIAGNOSIS: Bladder neck tumor. POSTOPERATIVE DIAGNOSIS: Bladder neck tumor. FINDINGS: Bladder neck tumor about 2 cm in diameter in the posterior bladder neck between 5 o'clock and 7 o'clock. SURGERY PERFORMED: Cystoscopy plus urethral dilatation with Hegar dilators plus transurethral resection of bladder tumor. SURGEON: Dr. Adolfo Ramos ENTERPRISE ANALYST: ANESTHESIA: COMPLICATIONS: ESTIMATED BLOOD LOSS: HISTORY OF PRESENT ILLNESS: A 66-year-old female patient had a flexible cystoscopy in the clinic that found actually a bladder tumor between 5 o'clock and 7 o'clock; and for this reason, she was consented for a cystoscopy plus transurethral resection of bladder tumor (TURBT). DESCRIPTION OF PROCEDURE: Procedure description: In a patient under general anesthesia in supine modified low lithotomy position, after prepping and draping the area of concern, which included the entire abdomen and genitalia, we started by introducing a cystoscope 21-Filipino in diameter with a 30-degree lens under videoscopic guidance. The bladder neck could not be passed. For this reason, we actually did dilatation of the urethra and bladder neck with Hegar dilators up to 30 ch. At that moment in time, we passed a cystoscope and did a formal cystoscopy with a 30-degree lens and a 60-degree lens and a 70-degree lens. There were no tumors in the bladder. There was a bladder tumor sessile in the bladder neck between 5 o'clock and 7 o'clock. Both ureteral orifices with clean clear urine. At that moment in time, we changed the cystoscope for a resectoscope under normal saline and bipolar resection, we resected the bladder tumor neck in the bladder neck between 5 o'clock and 7 o'clock, fulgurated the bleeding vessels with an Ellik evacuator extracted the chips, and these were sent for permanent pathology analysis. We then emptied the bladder, took the cystoscope out, and placed a 20-Filipino Anne catheter and inflated the balloon to 10 mL and put it to gravity. PLAN: The patient will go home today with Cipro twice a day 500 mg one tablet by mouth twice a day for 10 days and Tylenol 650 mg extended-release one tablet by mouth every 8 hours as needed for pain. The patient will followup at 3 days for a voiding trial. There were no complications with surgery. TRACEY
== END 2017-05-18 13:30 | disposition home or self-care (01) ==
LOC: M SDC 07:45
PROVIDERS: ATTEND Urology
DX: N32.9 Bladder disorder, unspecified (principal); I10 Essential (primary) hypertension; E78.5 Hyperlipidemia, unspecified; E03.9 Hypothyroidism, unspecified; F41.9 Anxiety disorder, unspecified; F32.9 Major depressive disorder, single episode, unspecified; F17.210 Nicotine dependence, cigarettes, uncomplicated; Z79.82 Long term (current) use of aspirin; Z79.899 Other long term (current) drug therapy
CPT/HCPCS: 52234; 88305; J0690; J1100; J2250; J2370; J3010

== ENCOUNTER → 2017-06-01 | Outpatient (REF) | payer MEDICARE ==
[~2017-06-01] MED LIST changes: +CIPR500T3 PO; +TYLE650T35 PO
== END ==
LOC: M SMT 13:02
PROVIDERS: ATTEND Nurse Practitioner Women's Health
DX: N30.80 Other cystitis without hematuria (principal)

== ENCOUNTER → 2017-06-08 | Outpatient (CLI) | payer MEDICARE ==
--- NOTE | 2017-06-24 01:03 | ECWPNPC ---
PATIENT NAME: FRED MICHELLE : 1950 GENDER: FEMALE VISIT DATE: 06/08/2017 DISCHARGE DATE: 06/08/17 1036 VISIT LOCKED DATE TIME: PHYSICIAN: AMADOU STINSON RESOURCE: AMADOU STINSON REASON FOR APPOINTMENT 1. HIPS AND BACK HISTORY OF PRESENT ILLNESS TODAY'S VISIT: NOTES: STATES IS STILL HAVING UNMANAGBLE BACK AND HIP PAIN. RATES PAIN 8/10. NOTES THAT THE HIPS ARE THE WORST. NOTES BACK IS NOT PAINFUL BUT OVER ALL STILL WITH SIG PAIN. NO CHANGE IN PAIN AFTER BLADDER SURGERY. . CURRENT MEDICATIONS TAKING CARVEDILOL 12.5 MG TABLET ORALLY TWICE A DAY TAKING AMLODIPINE BESYLATE 10 MG TABLET 1 TABLET ORALLY ONCE A DAY TAKING CLONAZEPAM 1 MG TABLET 1 TABLET ORALLY TWICE A DAY TAKING ASPIRIN 81 MG TABLET CHEWABLE 1 TABLET ORALLY ONCE A DAY TAKING CALCIUM + D3 600-200 MG-UNIT TABLET 1 TAB ORALLY BID TAKING VITAMIN D3 1000 UNIT CAPSULE 1 CAPSULE ORALLY BID TAKING MULTI FOR HER - TABLET 1 TAB ORALLY DAILY TAKING LISINOPRIL 40 MG TABLET 1 TABLET ORALLY ONCE A DAY TAKING ZETIA 10 MG TABLET 1 TABLET ORALLY ONCE A DAY TAKING VENLAFAXINE HCL ER 150 MG CAPSULE EXTENDED RELEASE 24 HOUR 1 CAPSULE WITH FOOD ORALLY ONCE A DAY TAKING LEVOTHYROXINE SODIUM 25 MCG TABLET 1 TABLET ON AN EMPTY STOMACH IN THE MORNING ORALLY ONCE A DAY NOT-TAKING TIZANIDINE HCL 2 MG TABLET 1 TABLET NEEDED ORALLY BID NOT-TAKING NORCO 5-325 MG TABLET 1 TABLET NEEDED ORALLY Q 6 HRS PRN PAIN MDD=2 NOT-TAKING BACTRIM DS 800-160 MG TABLET 1 TABLET ORALLY TWICE A DAY NOT-TAKING LIDOCAINE HCL JELLY LONGTERM 2 % JELLY 1 APPLICATION TO AFFECTED AREA NEEDED INTRAVESICALLY PRIOR TO PROCEDURE UNKNOWN PRAZOSIN HCL 1 MG CAPSULE 1 CAPSULE AT BEDTIME ORALLY ONCE A DAY MEDICATION LIST REVIEWED AND RECONCILED WITH THE PATIENT PAST MEDICAL HISTORY HTN (ETT 06/11 NEG) ANXIETY DEPRESSION HYPOTHYROID WITH 2 SMALL CYSTS HX OF C.DIFF TOBACCO ABUSE ETOH ABUSE IN REMISSION ALLERGIES STATINS (FOR ALLERGY USE ONLY): ACHY, PAINFUL MUSCLES: ALLERGY MAGNESIUM: DIARRHEA: ALLERGY TRAZODONE HCL: MUSCLE ACHES: ALLERGY CYMBALTA: SEVERE STOMACH ACHE: SIDE EFFECTS PROZAC: NAUSEA/VOMITING: ALLERGY SURGICAL HISTORY TONSILLECTOMY TUBAL LIGATION HYSTERECTOMY COLONOSCOPY/ENDOSCOPY TURBT 05/18/17 SOCIAL HISTORY GENERAL: TOBACCO USE ARE YOU A:CURRENT SMOKER HOW MANY CIGARETTES A DAY DO YOU SMOKE?6-10 HOW SOON AFTER YOU WAKE UP DO YOU SMOKE YOUR FIRST CIGARETTE?6-30 MIN HOW OFTEN DO YOU SMOKE CIGARETTES?EVERY DAY PATIENT COUNSELED ON THE DANGERS OF TOBACCO USE AND URGED TO QUIT:05/06/2017 ARE YOU INTERESTED IN QUITTING?THINKING ABOUT QUITTING HAS PAMPHLETS AND OTHER MATERIAL AT HOME COUNSELED THE PATIENT ON SMOKING CESSATION, EDUCATION [id number]/10/2017 SMOKING CESSATION INFORMATION GIVEN05/06/2017 ALCOHOL SCREENING DID YOU HAVE A DRINK CONTAINING ALCOHOL IN THE PAST YEAR?NO POINTS0 INTERPRETATIONNEGATIVE CAFFEINE CAFFEINE USE?NO HIV / HEP-C SCREENING HIV TEST OFFERED TO PATIENT:YES DATE OFFERED:04/02/2017 TEST ACCEPTED:NO REASON:PATIENT DECLINED HEP-C TEST OFFERED TO PATIENT:YES DATE OFFERED:04/02/2017 TEST ACCEPTED:NO REASON:PATIENT DECLINED OCCUPATION: RETIRED. DIET: REGULAR. EXERCISE: WALKS, SWIMS. MARITAL STATUS: . OTHERS AT HOME: NONE. ANABAPTISM [id number] ORIENTAL ORTHODOX LANGUAGE LANGUAGES SPOKEN:FAROESE EDUCATION LEVEL OF EDUCATION:NOT FINISHED COLLEGE LEARNING BARRIERS / SPECIAL NEEDS BARRIERS TO LEARNING?NO HEARING IMPAIRED?NO VISION IMPAIRED?YES :CORRECTIVE LENSES GLASSES COGNITIVELY IMPAIRED?NO READINESS TO LEARN?YES LEARNING PREFERENCES?NO LEARNING CAPABILITIES PRESENT?YES EMOTIONAL BARRIERS?NO SPECIAL DEVICES?NO FOOD SAMPLER NEEDED?NO PAIN CLINIC PFS, CLERGY, PUBLIC HEALTH REFERRALS PFS REFERRAL NEEDED?NO CLERGY REFERRAL NEEDED?NO PUBLIC HEALTH REFERRAL NEEDED?NO HAS THE PATIENT BEEN EDUCATED REGARDING HIS/HER PLAN OF CARE?YES HAS THE PATIENT BEEN EDUCATED REGARDING PAIN, THE RISK FOR PAIN, THE IMPORTANCE OF EFFECTIVE PAIN MANAGEMENT, AND THE PAIN ASSESSMENT PROCESS?YES PATIENT: ____. HOSPITALIZATION/MAJOR DIAGNOSTIC PROCEDURE SEE SURGERIES FRACTURED PELVIS CHILDBIRTH REVIEW OF SYSTEMS FOLLOW-UP ROS: CARDIOLOGY: BEING SCHEDULED FOR ASVD TESTING TO LEGS DUE TO POOR CIRC L>R FOOT. . GI/ HAD BLADDER SURGERY 2-3 WEEKS AGO - BENIGN TUMOR REMOVED. NO BLOOD IN URINE. USE OF PAIN MED CAUSES CONSTIPATION . VITAL SIGNS WT 136.4 LBS, HT 62.5 IN, BMI 24.55 INDEX, BP 104/57 MM HG, HR 77 /MIN, RR 16 /MIN, TEMP 97.1 F, OXYGEN SAT % 93%, NA INITIALS SC 09:39, REVIEWED BY: TAJ. EXAMINATION GENERAL EXAMINATION: PSYCHALERT , ORIENTED X 3 , FRUSTRATED. LUNGS:CLEAR TO AUSCULTATION BILATERALLY. HEART:HEART RATE REGULAR. MUSCULOSKELETAL: POINT TENDERNESS OVER RIGHT> LEFT TROCANTERIC BURSA, WELL LEFT >RRIGHT PIRIFORMIS MUSCLE GROUP AND ILIOTIBIAL BAND. MINIMAL TENDERNESS WITH PALPATION OVER LUMBAR SPINOUS PROCESSES AND ACROSS THE LUMBOSACRAL AXIS. SLOW TO RISE TO STANDING POSITION. POSTURE STOOPED. GAIT SLOW, WIDEBASED, ANTALGIC.. 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 CLINICAL NOTES: ISTOP REGISTRY REVIEWED AND DEMNOSTRATES COMPLLIANCE. (#[id number]). PREVENTIVE MEDICINE PAIN CLINIC TEACHING: PROCEDURE TEACHING PRE-PROCEDURE TEACHING DONE. QUESTIONS ANSWERED AND PATIENT VERBALIZES UNDERSTANDING.. PROCEDURE CODES FA211 ESTABILISHED PATIENT [facility] FACILITY CHARGE DISPOSITION & COMMUNICATION FOLLOW UP AFTER INJECTION (REASON: CHECK AUTH FOR ILIAC CREST LIGAMENT INJECTION) ELECTRONICALLY SIGNED BY ESDRAS ANDERSON ON 06/23/2017 AT 08:33 AM EDT DISCLAIMER : THIS IS A VISIT SUMMARY EXTRACTED FROM THE [employer] CHART. IT IS NOT A COPY OF THE [employer] PROGRESS NOTE. TRACEY
== END ==
LOC: M PAIN 09:30
PROVIDERS: ATTEND Nurse Practitioner Family
DX: G89.29 Other chronic pain (principal); M51.16 Intervertebral disc disorders with radiculopathy, lumbar region; M76.32 Iliotibial band syndrome, left leg; M70.61 Trochanteric bursitis, right hip; I10 Essential (primary) hypertension; E78.5 Hyperlipidemia, unspecified; F17.210 Nicotine dependence, cigarettes, uncomplicated; F10.10 Alcohol abuse, uncomplicated; E03.9 Hypothyroidism, unspecified; F41.9 Anxiety disorder, unspecified; F32.9 Major depressive disorder, single episode, unspecified; Z88.8 Allergy status to other drugs, medicaments and biological substances; Z79.82 Long term (current) use of aspirin; Z79.899 Other long term (current) drug therapy

== ENCOUNTER → 2017-06-15 | Outpatient (CLI) | payer MEDICARE ==
[~2017-06-15] MED LIST changes: +ISOVUE-M 300 61% 15ML VIAL (Q9967) As Ordered ONE; +LIDOCAINE 1% SDV INJ 30 ML VIAL As Ordered ONE; +diazePAM 5 MG TAB As Ordered ONE; +methylPREDNISolone SUSP 40 MG/ML (DEPO-medrol) VIAL (J1030) As Ordered ONE; +oxyCODONE 5MG TAB As Ordered ONE
--- NOTE | 2017-06-15 11:49 | REP ---
Partial lumbar spine series: Four views . History: Injection procedure for pain. 1 minute 14 seconds of fluoroscopy time is reported. Findings: A sequence of four fluoroscopically obtained last image hold procedural spot radiographs of the lumbar spine document needle position and contrast injection associated with injection procedure. Signed by Javier Abraham MD 06/15/2017 11:40 A
--- NOTE | 2017-06-15 23:53 | ECWPNPC ---
PATIENT NAME: FRED MICHELLE : 1950 GENDER: FEMALE VISIT DATE: 06/15/2017 DISCHARGE DATE: 06/15/17 1117 VISIT LOCKED DATE TIME: PHYSICIAN: POOJA KENNEY RESOURCE: POOJA KENNEY REASON FOR APPOINTMENT 1. BACK PAIN HISTORY OF PRESENT ILLNESS HISTORY OF PRESENT ILLNESS: PAIN THE PATIENT DESCRIBES THE PAIN... FALL RISK SCREENING: SCREENING :NO FALLS IN THE PAST YEAR CURRENT MEDICATIONS TAKING CARVEDILOL 12.5 MG TABLET ORALLY TWICE A DAY, NOTES: 06/15/17599 TAKING AMLODIPINE BESYLATE 10 MG TABLET 1 TABLET ORALLY ONCE A DAY, NOTES: 06/15/17599 TAKING CLONAZEPAM 1 MG TABLET 1 TABLET ORALLY TWICE A DAY, NOTES: 06/15/17599 TAKING ASPIRIN 81 MG TABLET CHEWABLE 1 TABLET ORALLY ONCE A DAY, NOTES: 06/14/171899 TAKING CALCIUM + D3 600-200 MG-UNIT TABLET 1 TAB ORALLY BID, NOTES: 06/15/17599 TAKING VITAMIN D3 1000 UNIT CAPSULE 1 CAPSULE ORALLY BID, NOTES: 06/15/17599 TAKING MULTI FOR HER - TABLET 1 TAB ORALLY DAILY, NOTES: 06/15/17599 TAKING LISINOPRIL 40 MG TABLET 1 TABLET ORALLY ONCE A DAY, NOTES: 06/14/171899 TAKING ZETIA 10 MG TABLET 1 TABLET ORALLY ONCE A DAY, NOTES: 06/14/171899 TAKING VENLAFAXINE HCL ER 150 MG CAPSULE EXTENDED RELEASE 24 HOUR 1 CAPSULE WITH FOOD ORALLY ONCE A DAY, NOTES: 06/15/17599 TAKING LEVOTHYROXINE SODIUM 25 MCG TABLET 1 TABLET ON AN EMPTY STOMACH IN THE MORNING ORALLY ONCE A DAY, NOTES: 06/15/17599 NOT-TAKING TIZANIDINE HCL 2 MG TABLET 1 TABLET NEEDED ORALLY BID NOT-TAKING NORCO 5-325 MG TABLET 1 TABLET NEEDED ORALLY Q 6 HRS PRN PAIN MDD=2 NOT-TAKING BACTRIM DS 800-160 MG TABLET 1 TABLET ORALLY TWICE A DAY NOT-TAKING LIDOCAINE HCL JELLY LONG-TERM 2 % JELLY 1 APPLICATION TO AFFECTED AREA NEEDED INTRAVESICALLY PRIOR TO PROCEDURE UNKNOWN PRAZOSIN HCL 1 MG CAPSULE 1 CAPSULE AT BEDTIME ORALLY ONCE A DAY MEDICATION LIST REVIEWED AND RECONCILED WITH THE PATIENT PAST MEDICAL HISTORY HTN (ETT 06/11 NEG) ANXIETY DEPRESSION HYPOTHYROID WITH 2 SMALL CYSTS HX OF C.DIFF TOBACCO ABUSE ETOH ABUSE IN REMISSION ALLERGIES STATINS (FOR ALLERGY USE ONLY): ACHY, PAINFUL MUSCLES: ALLERGY MAGNESIUM: DIARRHEA: ALLERGY TRAZODONE HCL: MUSCLE ACHES: ALLERGY CYMBALTA: SEVERE STOMACH ACHE: SIDE EFFECTS PROZAC: NAUSEA/VOMITING: ALLERGY SOCIAL HISTORY GENERAL: TOBACCO USE ARE YOU A:CURRENT SMOKER HOW MANY CIGARETTES A DAY DO YOU SMOKE?6-10 HOW SOON AFTER YOU WAKE UP DO YOU SMOKE YOUR FIRST CIGARETTE?6-30 MIN HOW OFTEN DO YOU SMOKE CIGARETTES?EVERY DAY PATIENT COUNSELED ON THE DANGERS OF TOBACCO USE AND URGED TO QUIT:06/15/2017 ARE YOU INTERESTED IN QUITTING?THINKING ABOUT QUITTING HAS PAMPHLETS AND OTHER MATERIAL AT HOME COUNSELED THE PATIENT ON SMOKING CESSATION, EDUCATION [id number]/19/2017 SMOKING CESSATION INFORMATION GIVEN06/15/2017 SHE IS TRYING TO QUIT. SHE HAS THE INFORMATION ALREADY. ALCOHOL SCREENING DID YOU HAVE A DRINK CONTAINING ALCOHOL IN THE PAST YEAR?NO POINTS0 INTERPRETATIONNEGATIVE CAFFEINE CAFFEINE USE?NO HIV / HEP-C SCREENING HIV TEST OFFERED TO PATIENT:YES DATE OFFERED:04/02/2017 TEST ACCEPTED:NO REASON:PATIENT DECLINED HEP-C TEST OFFERED TO PATIENT:YES DATE OFFERED:04/02/2017 TEST ACCEPTED:NO REASON:PATIENT DECLINED OCCUPATION: RETIRED. DIET: REGULAR. EXERCISE: WALKS, SWIMS. MARITAL STATUS: . OTHERS AT HOME: NONE. HINDUISM [id number] JEWISH LANGUAGE LANGUAGES SPOKEN:MACEDONIAN EDUCATION LEVEL OF EDUCATION:NOT FINISHED COLLEGE LEARNING BARRIERS / SPECIAL NEEDS BARRIERS TO LEARNING?NO HEARING IMPAIRED?NO VISION IMPAIRED?YES :CORRECTIVE LENSES GLASSES COGNITIVELY IMPAIRED?NO READINESS TO LEARN?YES LEARNING PREFERENCES?NO LEARNING CAPABILITIES PRESENT?YES EMOTIONAL BARRIERS?NO SPECIAL DEVICES?NO SENIOR SQL DEVELOPER NEEDED?NO PAIN CLINIC PFS, CLERGY, PUBLIC HEALTH REFERRALS PFS REFERRAL NEEDED?NO CLERGY REFERRAL NEEDED?NO PUBLIC HEALTH REFERRAL NEEDED?NO HAS THE PATIENT BEEN EDUCATED REGARDING HIS/HER PLAN OF CARE?YES HAS THE PATIENT BEEN EDUCATED REGARDING PAIN, THE RISK FOR PAIN, THE IMPORTANCE OF EFFECTIVE PAIN MANAGEMENT, AND THE PAIN ASSESSMENT PROCESS?YES PATIENT: ____. ADVANCE DIRECTIVES HEALTH CARE PROXY?NO WOULD YOU LIKE MORE INFORMATION?NO ALREADY HAS DO YOU HAVE A DNR?NO WOULD YOU LIKE MORE INFORMATION?NO LIVING WILL?NO WOULD YOU LIKE MORE INFORMATION?NO POWER OF IT RISK ANALYST?NO WOULD YOU LIKE MORE INFORMATION?NO REVIEW OF SYSTEMS REVIEWED BY: PROVIDER: . CONSTITUTIONAL: ANY CHANGE IN YOUR MEDICAL CONDITION? NO . CHILLS NO . FEVER NO . INFECTION: DO YOU HAVE NEW INFECTIONS? NO . DO YOU HAVE HISTORY OF MRSA? NO . MUSCULOSKELETAL: ANY NEW PATTERNS OF PAIN OR NUMBNESS? NO . GASTROENTEROLOGY: ANY NEW CHANGE IN BOWEL CONTROL? NO . GENITOURINARY: ANY NEW CHANGE IN BLADDER CONTROL? NO . IS THERE A CHANCE YOU COULD BE ? NO . HEMATOLOGY/LYMPH: DO YOU TAKE ANY BLOOD THINNERS? (FOR EXAMPLE- COUMADIN, PLAVIX, AGGRENOX, PLATEL, PRADAXA, OR XARELTO) NO . WHEN WAS YOUR LAST DOSE? DATE: TIME: . NEUROLOGY: HAVE YOU FALLEN IN THE PAST 6 MONTHS? NO . ANY NEW EXTREMITY NUMBNESS OR WEAKNESS? NO . CARDIOLOGY: DO YOU HAVE A PACEMAKER OR DEFIBRILLATOR? NO . RESPIRATORY: HAVE YOU BEEN SICK IN THE PAST WEEK? NO . FEVER NO . FLU LIKE SYMPTOMS? NO . COUGH NO . INTEGUMENTARY: DO YOU HAVE ANY RASHES OR OPEN SORES? NO . ALLERGIC/IMMUNO: ARE YOU ALLERGIC TO SHELLFISH OR IV DYE? NO . ANY NEW ALLERGIES? NO . PSYCHIATRIC: DO YOU HAVE THOUGHTS OF HURTING YOURSELF OR SOMEONE ELSE? NO . ARE YOU ABUSED, NEGLECTED, OR IN AN UNSAFE ENVIRONMENT? NO . ENDOCRINOLOGY: ARE YOU DIABETIC? NO . OTHER: DO YOU NEED ANY PRESCRIPTIONS? NO . IF YES, PLEASE LIST: ____ . ANY NEW PROBLEMS WITH YOUR MEDICATIONS? NO . WHEN DID YOU LAST EAT? 06/14/17 . WHEN DID YOU LAST DRINK? 06/15/17 0600 . WHAT DID YOU LAST DRINK? WATER . NAME OF PERSON DRIVING YOU HOME? FABIÁN BAL . DO YOU HAVE ANY OTHER QUESTIONS OR CONCERNS NO . VITAL SIGNS WT 135 LBS, HT 62.5 IN, BMI 24.30 INDEX, BP 120/57 MM HG, HR 82 /MIN, RR 16 /MIN, TEMP 97.3 F, OXYGEN SAT % 97%, NA INITIALS AW 0845, REVIEWED BY: AD. ASSESSMENTS INTERVERTEBRAL DISC DISORDER WITH RADICULOPATHY OF LUMBAR REGION - M51.16 (PRIMARY) PROCEDURES PRE PROCEDURE DIAGNOSIS LUMBAR DISC DISORDER WITH RADICULOPATHY POST PROCEDURE DIAGNOSIS LUMBAR DISC DISORDER WITH RADICULOPATHY PROCEDURE LUMBAR EPIDURAL STEROID INJECTION UNDER FLUOROSCOPIC GUIDANCE SURGEON DR. POOJA KENNEY TECHNICAL SERVICE REPRESENTATIVE NONE ANESTHESIA LOCAL PRE PROCEDURE NOTE THE PATIENT HAS A HISTORY OF CHRONIC LOW BACK PAIN. I EVALUATE THE PATIENT AND REVIEWED THE CHART. I WENT OVER THE RISKS, ALTERNATIVES, AND BENEFITS ASSOCIATED WITH THIS PROCEDURE. THE PATIENT WOULD LIKE TO PROCEED AND GIVE CONSENT TO PERFORMED THE PROCEDURE. THE PATIENT DENIES UNEXPLAINABLE WEIGHT LOSS, FEVER, CHILLS, OR NEW CHANGES IN URINARY OR BOWEL CONTROL. DESCRIPTION OF PROCEDURE THE PATIENT WAS BROUGHT TO THE PROCEDURE ROOM AND PLACED IN THE PRONE POSITION. THE LUMBOSACRAL AREA WAS CLEANED WITH BETADINE SOLUTION AND DRAPED ASEPTICALLY. THE PROCEDURE WAS DONE UNDER STERILE CONDITIONS. I CHECKED LATERALITY AND THE LEVEL WHERE THE PROCEDURE WAS GOING TO BE PERFORMED WITH THE PATIENT AND THE SUPPORTING STAFF AT THE MOMENT OF THE TIME OUT IN THE PROCEDURE ROOM. UNDER FLUOROSCOPIC GUIDANCE, THE TARGET POINT WAS SELECTED AT THE INTERLAMINAR LEVEL OF L3-L4. LIDOCAINE WAS USED TO NUMB THE SKIN AND THE SUBCUTANEOUS TISSUE BELOW IT. EPIDURAL TUOHY NEEDLE, 17-GAUGE, WAS ADVANCED UNDER FLUOROSCOPIC GUIDANCE AND FOLLOWING PATIENT FEEDBACK UNTIL THE EPIDURAL SPACE WAS REACHED, 7 CM DEEP INTO THE SKIN BY THE LOSS OF RESISTANCE TECHNIQUE. ISOVUE M DYE 30%, 0.25 ML, WAS INJECTED SHOWING ADEQUATE SPREAD OF THE DYE. THEN, A SOLUTION OF 3 ML OF NORMAL SALINE WITH DEPO-MEDROL 60 MG WAS INJECTED SLOWLY FOLLOWING PATIENT FEEDBACK. THERE WAS NO EVIDENCE OF BLOOD, PARESTHESIA OR CEREBROSPINAL FLUID DURING THE PROCEDURE. THE PATIENT WAS SENT TO THE RECOVERY ROOM. THE PATIENT WAS MOVING THE EXTREMITIES AND DOING WELL. THERE WAS NO COMPLICATION DURING THE PROCEDURE. FLUOROSCOPY TIME WAS 1 MINUTES 14 SECONDS. POST PROCEDURE NOTE THE PATIENT WILL BE SEEN IN A FOLLOW UP IN THE NEXT FEW WEEKS. INSTRUCTIONS WERE GIVEN, QUESTIONS WERE ANSWERED, AND THE PATIENT EXPRESSED UNDERSTANDING AND AGREES WITH THE PLAN. I, TIERNEY STEINER, DOCUMENTED THE ABOVE INFORMATION ACTING A SCRIBE FOR DR. KENNEY. I HAVE REVIEWED THE ABOVE DOCUMENT, WRITTEN BY TIERNEY SULLIVAN AND I VERIFY THAT IT IS ACCURATE DIAGNOSTIC IMAGING [facility] FLUORO GUIDE SPINE INJECTION (PAIN)[id number] PROCEDURE CODES 11514 LUMBAR/SACRAL W/ IMAGING 6045F RADXPS IN END [id number] PXD DISPOSITION & COMMUNICATION FOLLOW UP 3 WEEKS ELECTRONICALLY SIGNED BY POOJA KENNEY MD ON 06/15/2017 AT 09:17 PM EDT DISCLAIMER : THIS IS A VISIT SUMMARY EXTRACTED FROM THE [employer] CHART. IT IS NOT A COPY OF THE [employer] PROGRESS NOTE. TRACEY
== END ==
LOC: M PAIN 08:45
PROVIDERS: ATTEND Anesthesiology
DX: G89.29 Other chronic pain (principal); M51.16 Intervertebral disc disorders with radiculopathy, lumbar region; I10 Essential (primary) hypertension; E78.5 Hyperlipidemia, unspecified; F17.210 Nicotine dependence, cigarettes, uncomplicated; F10.10 Alcohol abuse, uncomplicated; E03.9 Hypothyroidism, unspecified; D75.89 Other specified diseases of blood and blood-forming organs; F41.9 Anxiety disorder, unspecified; F32.9 Major depressive disorder, single episode, unspecified; Z88.8 Allergy status to other drugs, medicaments and biological substances; Z79.82 Long term (current) use of aspirin; Z79.899 Other long term (current) drug therapy
CPT/HCPCS: 62323; J1030; Q9967

== ENCOUNTER → 2017-06-22 | Outpatient (CLI) | payer MEDICARE ==
[~2017-06-22] MED LIST changes: -ISOVUE-M 300 61% 15ML VIAL (Q9967) As Ordered ONE; -LIDOCAINE 1% SDV INJ 30 ML VIAL As Ordered ONE; -diazePAM 5 MG TAB As Ordered ONE; -methylPREDNISolone SUSP 40 MG/ML (DEPO-medrol) VIAL (J1030) As Ordered ONE; -oxyCODONE 5MG TAB As Ordered ONE
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
== END ==
LOC: M PAIN 15:45
PROVIDERS: ATTEND Anesthesiology
DX: G89.29 Other chronic pain (principal); M51.16 Intervertebral disc disorders with radiculopathy, lumbar region; M51.17 Intervertebral disc disorders with radiculopathy, lumbosacral region; I10 Essential (primary) hypertension; F41.9 Anxiety disorder, unspecified; F32.9 Major depressive disorder, single episode, unspecified; E03.9 Hypothyroidism, unspecified; F17.210 Nicotine dependence, cigarettes, uncomplicated; F10.21 Alcohol dependence, in remission; Z88.8 Allergy status to other drugs, medicaments and biological substances; Z79.82 Long term (current) use of aspirin; Z79.899 Other long term (current) drug therapy

== ENCOUNTER → 2017-07-01 | Outpatient (CLI) | payer MEDICARE ==
[~2017-07-01] MED LIST changes: +BUPIVACAINE HCL 0.25% 30 ML VIAL As Ordered ONE; +ISOVUE-M 300 61% 15ML VIAL (Q9967) As Ordered ONE; +LIDOCAINE 1% SDV INJ 30 ML VIAL As Ordered ONE; +TRIAMCINOLONE ACETONIDE SUSP 40 MG/ML VIAL (J3301) As Ordered ONE; +diazePAM 5 MG TAB As Ordered ONE; +oxyCODONE 5MG TAB As Ordered ONE
--- NOTE | 2017-07-01 16:21 | REP ---
Partial right hip: Three views. History: Right hip injection for pain. 11 seconds of fluoroscopy time is reported. Findings: A sequence of three last image hold fluoroscopic spot radiographs of the right hip document needle position associated with injection procedure. Signed by Javier Abraham MD 07/01/2017 05:24 P
--- NOTE | 2017-07-05 23:57 | ECWPNPC ---
PATIENT NAME: FRED MICHELLE : 1950 GENDER: FEMALE VISIT DATE: 07/01/2017 DISCHARGE DATE: 07/01/171555 VISIT LOCKED DATE TIME: PHYSICIAN: POOJA KENNEY RESOURCE: POOJA KENNEY REASON FOR APPOINTMENT 1. LEFT GREATER TROCHANTER HISTORY OF PRESENT ILLNESS HISTORY OF PRESENT ILLNESS: PAIN THE PATIENT DESCRIBES THE PAIN... FALL RISK SCREENING: SCREENING :NO FALLS IN THE PAST YEAR CURRENT MEDICATIONS TAKING CARVEDILOL 12.5 MG TABLET ORALLY TWICE A DAY, NOTES: 07/01/17629 TAKING AMLODIPINE BESYLATE 10 MG TABLET 1 TABLET ORALLY ONCE A DAY, NOTES: 07/01/17629 TAKING CLONAZEPAM 1 MG TABLET 1 TABLET ORALLY TWICE A DAY, NOTES: 07/01/17629 TAKING ASPIRIN 81 MG TABLET CHEWABLE 1 TABLET ORALLY ONCE A DAY, NOTES: 07/01/171899 TAKING CALCIUM + D3 600-200 MG-UNIT TABLET 1 TAB ORALLY BID, NOTES: 07/01/17629 TAKING VITAMIN D3 1000 UNIT CAPSULE 1 CAPSULE ORALLY BID, NOTES: 07/01/17629 TAKING MULTI FOR HER - TABLET 1 TAB ORALLY DAILY, NOTES: 07/01/17629 TAKING LISINOPRIL 40 MG TABLET 1 TABLET ORALLY ONCE A DAY, NOTES: 06/30/171899 TAKING ZETIA 10 MG TABLET 1 TABLET ORALLY ONCE A DAY, NOTES: 06/30/171899 TAKING VENLAFAXINE HCL ER 150 MG CAPSULE EXTENDED RELEASE 24 HOUR 1 CAPSULE WITH FOOD ORALLY ONCE A DAY, NOTES: 07/01/17629 TAKING LEVOTHYROXINE SODIUM 25 MCG TABLET 1 TABLET ON AN EMPTY STOMACH IN THE MORNING ORALLY ONCE A DAY, NOTES: 07/01/17629 NOT-TAKING TIZANIDINE HCL 2 MG TABLET 1 TABLET NEEDED ORALLY BID NOT-TAKING NORCO 5-325 MG TABLET 1 TABLET NEEDED ORALLY Q 6 HRS PRN PAIN MDD=2 NOT-TAKING BACTRIM DS 800-160 MG TABLET 1 TABLET ORALLY TWICE A DAY NOT-TAKING LIDOCAINE HCL JELLY LONG TERM 2 % JELLY 1 APPLICATION TO AFFECTED AREA NEEDED INTRAVESICALLY PRIOR TO PROCEDURE NOT-TAKING PRAZOSIN HCL 1 MG CAPSULE 1 CAPSULE AT BEDTIME ORALLY ONCE A DAY MEDICATION LIST REVIEWED AND RECONCILED WITH THE PATIENT PAST MEDICAL HISTORY HTN (ETT 06/11 NEG) ANXIETY DEPRESSION HYPOTHYROID WITH 2 SMALL CYSTS HX OF C.DIFF TOBACCO ABUSE ETOH ABUSE IN REMISSION ALLERGIES STATINS (FOR ALLERGY USE ONLY): ACHY, PAINFUL MUSCLES: ALLERGY MAGNESIUM: DIARRHEA: ALLERGY TRAZODONE HCL: MUSCLE ACHES: ALLERGY CYMBALTA: SEVERE STOMACH ACHE: SIDE EFFECTS PROZAC: NAUSEA/VOMITING: ALLERGY REVIEW OF SYSTEMS REVIEWED BY: PROVIDER: . CONSTITUTIONAL: ANY CHANGE IN YOUR MEDICAL CONDITION? NO . CHILLS NO . FEVER NO . INFECTION: DO YOU HAVE NEW INFECTIONS? NO . DO YOU HAVE HISTORY OF MRSA? NO . MUSCULOSKELETAL: ANY NEW PATTERNS OF PAIN OR NUMBNESS? YES PT REPORTS AN INCREASE IN INTENSITY OF PAIN IN RIGHT HIP . GASTROENTEROLOGY: ANY NEW CHANGE IN BOWEL CONTROL? NO . GENITOURINARY: ANY NEW CHANGE IN BLADDER CONTROL? NO . IS THERE A CHANCE YOU COULD BE ? NO . HEMATOLOGY/LYMPH: DO YOU TAKE ANY BLOOD THINNERS? (FOR EXAMPLE- COUMADIN, PLAVIX, AGGRENOX, PLATEL, PRADAXA, OR XARELTO) NO . WHEN WAS YOUR LAST DOSE? DATE: TIME: . NEUROLOGY: HAVE YOU FALLEN IN THE PAST 6 MONTHS? NO . ANY NEW EXTREMITY NUMBNESS OR WEAKNESS? NO . CARDIOLOGY: DO YOU HAVE A PACEMAKER OR DEFIBRILLATOR? NO . RESPIRATORY: HAVE YOU BEEN SICK IN THE PAST WEEK? NO . FEVER NO . FLU LIKE SYMPTOMS? NO . COUGH NO . INTEGUMENTARY: DO YOU HAVE ANY RASHES OR OPEN SORES? NO . ALLERGIC/IMMUNO: ARE YOU ALLERGIC TO SHELLFISH OR IV DYE? NO . ANY NEW ALLERGIES? NO . PSYCHIATRIC: DO YOU HAVE THOUGHTS OF HURTING YOURSELF OR SOMEONE ELSE? NO . ARE YOU ABUSED, NEGLECTED, OR IN AN UNSAFE ENVIRONMENT? NO . ENDOCRINOLOGY: ARE YOU DIABETIC? NO . OTHER: DO YOU NEED ANY PRESCRIPTIONS? NO . IF YES, PLEASE LIST: ____ . ANY NEW PROBLEMS WITH YOUR MEDICATIONS? NO . WHEN DID YOU LAST EAT? ____07/01/17 0600 . WHEN DID YOU LAST DRINK? ____07/01/17 1100 . WHAT DID YOU LAST DRINK? ____WATER . NAME OF PERSON DRIVING YOU HOME? ____WILBER THRASHER . DO YOU HAVE ANY OTHER QUESTIONS OR CONCERNS NO . VITAL SIGNS WT 136 LBS, HT 62.5 IN, BMI 24.48 INDEX, BP 106/71 MM HG, HR 79 /MIN, RR 16 /MIN, TEMP 97.4 F, OXYGEN SAT % 97%, SAFE IN ENV? (Y/N) YES, NA INITIALS PR 13:18, REVIEWED BY: LAS. CHAO TROCHANTERIC BURSITIS OF RIGHT HIP - M70.61 (PRIMARY) TREATMENT OTHERS NOTES: PREPROCEDURE DIAGNOSIS: BURSITIS AT THE RIGHT GREATER TROCHANTER OF THE FEMUR. POSTPROCEDURE DIAGNOSIS: BURSITIS AT THE RIGHT GREATER TROCHANTER OF THE FEMUR. PROCEDURE: INJECTION AT THE BURSA OF THE OF THE RIGHT GREATER TROCHANTER OF THE FEMUR UNDER FLUOROSCOPIC GUIDANCE. SURGEON: DR. POOJA KENNEY FIRE MANAGEMENT SPECIALIST: NONEANESTHESIA: LOCAL. PREOPERATIVE NOTE: THE PATIENT HAS A HISTORY OF RIGHT HIP PAIN. I EVALUATED THE PATIENT AND REVIEWED THE CHART. WE BOTH AGREE ON INJECTING OVER THE BURSA OF THE [DEFAULT VALUE] GREATER TROCHANTER OF THE FEMUR. I WENT THROUGH THE RISKS, ALTERNATIVES, AND BENEFITS ASSOCIATED WITH THIS PROCEDURE. THE PATIENT WOULD LIKE TO PROCEED AND GIVE CONSENT TO PERFORMED THE PROCEDURE. THE PATIENT DENIES UNEXPLAINABLE WEIGHT LOSS, FEVERS, CHILLS, OR CHANGES IN HIS URINARY OR BOWEL CONTROL. DESCRIPTION OF PROCEDURE: AFTER CONSENT WAS TAKEN, THE PATIENT WAS BROUGHT TO THE PROCEDURE ROOM AND PLACED IN THE LEFT LATERAL DECUBITUS POSITION. THE RIGHT HIP AREA WAS CLEANED WITH CHLORAPREP SOLUTION AND DRAPED ASEPTICALLY. THE PROCEDURE WAS DONE UNDER STERILE CONDITIONS. I CHECKED LATERALITY WITH THE PATIENT AND THE STAFF IN THE PROCEDURE ROOM AT THE MOMENT OF THE TIME OUT. UNDER FLUOROSCOPIC GUIDANCE, TARGET WAS SELECTED AT THE RIGHT GREATER TROCHANTER OF THE FEMUR. LIDOCAINE WAS USED TO NUMB THE SKIN AND THE SUBCUTANEOUS TISSUE BELOW IT. SPINAL NEEDLE, 22-GAUGE WAS ADVANCED UNDER FLUOROSCOPIC GUIDANCE AND FOLLOWING PATIENT FEEDBACK UNTIL THE TARGET WAS TOUCHED. POSITION OF THE NEEDLE WAS VERIFIED WITH AP AND LATERAL VIEWS. AFTER PROPER POSITION OF THE NEEDLE WAS ACHIEVED, ISOVUE M DYE, 30%, 0.25 ML WAS INJECTED SHOWING ADEQUATE SPREAD OF THE DYE. THEN A SOLUTION OF 20 ML OF BUPIVACAINE 0.25% AND KENALOG 40 MG WAS INJECTED. THERE WAS NO EVIDENCE OF BLOOD, PARESTHESIA, OR CEREBROSPINAL FLUID. THE PATIENT WAS SENT TO THE RECOVERY ROOM. THE PATIENT WAS MOVING THE EXTREMITIES AND DOING WELL. THERE WERE NO COMPLICATIONS DURING THE PROCEDURE. POSTOPERATIVE NOTE: I DISCUSSED ALTERNATIVES WITH THE PATIENT. WE WILL SEE THE PATIENT BACK IN SEVERAL WEEKS FOR REEVALUATION OF THE CASE. I AM LOOKING FOR LONG-LASTING PAIN RELIEF WITH THIS INTERVENTION. FLUOROSCOPIC TIME WAS 11 SECONDS. FURTHER RECOMMENDATIONS WILL BE DONE DEPENDING ON HOW THE PATIENT DOES. THERE WERE NO COMPLICATIONS.I, TIERNEY STEINER, DOCUMENTED THE ABOVE INFORMATION ACTING A SCRIBE FOR DR. KENNEY. I HAVE REVIEWED THE ABOVE DOCUMENT, WRITTEN BY TIERNEY STEINER SCRIBE AND I VERIFY THAT IT IS ACCURATE. DIAGNOSTIC IMAGING [facility] FLUORO GUIDANCE (PAIN)[id number] PROCEDURE CODES 45277 DRAIN/INJ JOINT/BURSA W/O US, MODIFIERS: RT [address] NEEDLE LOCALIZATION BY XRAY, MODIFIERS: [id number] RADXPS IN END [id number] PXD DISPOSITION & COMMUNICATION FOLLOW UP 3 WEEKS ELECTRONICALLY SIGNED BY POOJA KENNEY MD ON 07/05/2017 AT 02:57 PM EDT DISCLAIMER : THIS IS A VISIT SUMMARY EXTRACTED FROM THE [employer] CHART. IT IS NOT A COPY OF THE [employer] PROGRESS NOTE. MTDD
== END ==
LOC: M PAIN 13:15
PROVIDERS: ATTEND Anesthesiology
DX: G89.29 Other chronic pain (principal); M70.61 Trochanteric bursitis, right hip; I10 Essential (primary) hypertension; F41.9 Anxiety disorder, unspecified; F32.9 Major depressive disorder, single episode, unspecified; E03.9 Hypothyroidism, unspecified; F17.210 Nicotine dependence, cigarettes, uncomplicated; F10.21 Alcohol dependence, in remission; Z88.8 Allergy status to other drugs, medicaments and biological substances; Z79.82 Long term (current) use of aspirin; Z79.899 Other long term (current) drug therapy
CPT/HCPCS: 20610; 77002; J3301; Q9967

== ENCOUNTER → 2017-07-05 | Outpatient (REF) | payer MEDICARE ==
[~2017-07-05] MED LIST changes: -BUPIVACAINE HCL 0.25% 30 ML VIAL As Ordered ONE; -ISOVUE-M 300 61% 15ML VIAL (Q9967) As Ordered ONE; -LIDOCAINE 1% SDV INJ 30 ML VIAL As Ordered ONE; -TRIAMCINOLONE ACETONIDE SUSP 40 MG/ML VIAL (J3301) As Ordered ONE; -diazePAM 5 MG TAB As Ordered ONE; -oxyCODONE 5MG TAB As Ordered ONE
[2017-07-05 12:37] LABS: MEAN CORPUSCULAR HEMOGLOBIN 34.4 pg (27.0-33.0); MEAN CORPUSCULAR VOLUME 104.3 fl (80.0-96.0); RED CELL DISTRIBUTION WIDTH 12.2 % (11.5-14.5); WHITE BLOOD COUNT 6.8 10^3/uL (4.0-10.0)
[2017-07-05 12:50] LABS: ALBUMIN 3.7 GM/DL (3.2-5.2); ALBUMIN/GLOBULIN RATIO 1.16 (1.00-1.93); ALKALINE PHOSPHATASE 64 U/L (45-117); ALT/SGPT 29 U/L (12-78); ANION GAP 7 MEQ/L (8-16); AST/SGOT 18 U/L (15-37); BILIRUBIN,TOTAL 0.2 MG/DL (0.2-1.0); BLOOD UREA NITROGEN 14 MG/DL (7-18); CALCIUM LEVEL 9.7 MG/DL (8.8-10.2); CARBON DIOXIDE LEVEL 30 MEQ/L (21-32); CHLORIDE LEVEL 103 MEQ/L (98-107); CHOLESTEROL LEVEL 195 MG/DL (<200); CREATININE FOR GFR 0.63 MG/DL (0.55-1.02); GLOMERULAR FILTRATION RATE > 60.0 (>45); GLUCOSE, FASTING 99 MG/DL (80-110); POTASSIUM SERUM 4.4 MEQ/L (3.5-5.1); SODIUM LEVEL 140 MEQ/L (136-145); TOTAL PROTEIN 6.9 GM/DL (6.4-8.2); TRIGLYCERIDES LEVEL 107 MG/DL (<150)
[2017-07-05 14:09] LABS: BASOPHILS 2 % (0-4); EOSINOPHILS 2 % (0-5)
[2017-07-05 14:10] LABS: ANISOCYTOSIS 1+
== END ==
LOC: M SFHCLERA 09:23
PROVIDERS: ATTEND Family Medicine
DX: I10 Essential (primary) hypertension (principal); M25.511 Pain in right shoulder; E78.5 Hyperlipidemia, unspecified; Z79.82 Long term (current) use of aspirin; Z79.899 Other long term (current) drug therapy

== ENCOUNTER → 2017-07-05 | Outpatient (CLI) | payer MEDICARE ==
--- NOTE | 2017-07-05 11:21 | REP ---
RIGHT SHOULDER, FOUR VIEWS: HISTORY: Shoulder pain. There is no acute fracture or dislocation. The joint spaces are normal in appearance. Osteophytes are present at the acromioclavicular joint and coracoid process. IMPRESSION: Degenerative change as described above. Signed by Serafin Lawson MD 07/05/2017 11:22 A
== END ==
LOC: M LRY 09:42
PROVIDERS: ATTEND Family Medicine
DX: M25.711 Osteophyte, right shoulder (principal); E78.5 Hyperlipidemia, unspecified; I10 Essential (primary) hypertension; R73.09 Other abnormal glucose
CPT/HCPCS: 73030; 80053; 80061; 82043; 83036; 84443; 85007; 85027; G0463

== ENCOUNTER → 2017-07-06 | Outpatient (CLI) | payer MEDICARE ==
[~2017-07-06] MED LIST changes: +BUPIVACAINE HCL 0.25% 30 ML VIAL As Ordered ONE; +ISOVUE-M 300 61% 15ML VIAL (Q9967) As Ordered ONE; +LIDOCAINE 1% SDV INJ 30 ML VIAL As Ordered ONE; +TRIAMCINOLONE ACETONIDE SUSP 40 MG/ML VIAL (J3301) As Ordered ONE; +diazePAM 5 MG TAB As Ordered ONE; +oxyCODONE 5MG TAB As Ordered ONE
--- NOTE | 2017-07-06 17:27 | REP ---
Partial hip series: Four views. History: Injection procedure for pain. 9 seconds of fluoroscopy time is reported. Findings: A sequence of four last image hold fluoroscopic radiographs of the hip document various needle positions associated with injection procedure. No laterality markers are seen. Signed by Javier Abraham MD 07/06/2017 05:33 P
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
== END ==
LOC: M PAIN 14:00
PROVIDERS: ATTEND Anesthesiology
DX: M70.62 Trochanteric bursitis, left hip (principal); I10 Essential (primary) hypertension; F41.9 Anxiety disorder, unspecified; F32.9 Major depressive disorder, single episode, unspecified; E03.9 Hypothyroidism, unspecified; F17.210 Nicotine dependence, cigarettes, uncomplicated; F10.21 Alcohol dependence, in remission; Z88.6 Allergy status to analgesic agent; Z88.8 Allergy status to other drugs, medicaments and biological substances; Z79.82 Long term (current) use of aspirin; Z79.899 Other long term (current) drug therapy
CPT/HCPCS: 20610; 77002; J3301; Q9967

== ENCOUNTER → 2017-08-12 | Outpatient (REF) | payer MEDICARE ==
[~2017-08-12] MED LIST changes: -BUPIVACAINE HCL 0.25% 30 ML VIAL As Ordered ONE; -ISOVUE-M 300 61% 15ML VIAL (Q9967) As Ordered ONE; -LIDOCAINE 1% SDV INJ 30 ML VIAL As Ordered ONE; -TRIAMCINOLONE ACETONIDE SUSP 40 MG/ML VIAL (J3301) As Ordered ONE; -diazePAM 5 MG TAB As Ordered ONE; -oxyCODONE 5MG TAB As Ordered ONE
[2017-08-12 16:28] LABS: BASO # 0.1 10^3/uL (0.0-0.2); EOS # 0.1 10^3/uL (0.0-0.50); EOS % 1.7 % (0.0-3.0); IMMATURE GRANULOCYTE % 0.3 % (0-0); LYMPH # 1.8 10^3/uL (1.5-4.5); LYMPH % 24.1 % (24.0-44.0); MEAN CORPUSCULAR HEMOGLOBIN 34.4 pg (27.0-33.0); MEAN CORPUSCULAR HGB CONC 33.4 g/dl (32.0-36.5); MEAN CORPUSCULAR VOLUME 103.1 fl (80.0-96.0); MONO # 0.7 10^3/uL (0.0-0.8); NEUTROPHILS # 4.6 10^3/uL (1.8-7.7); NEUTROPHILS % 63.9 % (36.0-66.0); PLATELET COUNT, AUTOMATED 384 10^3/uL (150-450); RED CELL DISTRIBUTION WIDTH 12.5 % (11.5-14.5); WHITE BLOOD COUNT 7.3 10^3/uL (4.0-10.0)
[2017-08-12 16:30] LABS: INR 0.98
[2017-08-12 16:45] LABS: ALBUMIN 3.8 GM/DL (3.2-5.2); ALBUMIN/GLOBULIN RATIO 1.31 (1.00-1.93); ALKALINE PHOSPHATASE 68 U/L (45-117); ALT/SGPT 39 U/L (12-78); ANION GAP 5 MEQ/L (8-16); AST/SGOT 25 U/L (7-37); BILIRUBIN,TOTAL 0.2 MG/DL (0.2-1.0); BLOOD UREA NITROGEN 12 MG/DL (7-18); CALCIUM LEVEL 10.1 MG/DL (8.8-10.2); CARBON DIOXIDE LEVEL 31 MEQ/L (21-32); CHLORIDE LEVEL 107 MEQ/L (98-107); CREATININE FOR GFR 0.69 MG/DL (0.55-1.02); GLOMERULAR FILTRATION RATE > 60.0 (>45); GLUCOSE, FASTING 103 MG/DL (80-110); POTASSIUM SERUM 4.6 MEQ/L (3.5-5.1); SODIUM LEVEL 143 MEQ/L (136-145); TOTAL PROTEIN 6.7 GM/DL (6.4-8.2)
== END ==
LOC: M SFHCLERA 14:28
PROVIDERS: ATTEND Family Medicine
DX: K92.1 Melena (principal)
CPT/HCPCS: 80053; 85025; 85610; G0463

== ENCOUNTER → 2017-08-13 | Outpatient (REF) | payer MEDICARE | LOC: M SFHCLERA 08:33 | PROVIDERS: ATTEND Family Medicine | DX: K92.1 Melena (principal) | CPT/HCPCS: 85018; G0463 ==

== ENCOUNTER → 2017-08-18 | Outpatient (CLI) | payer MEDICARE ==
--- NOTE | 2017-08-29 23:53 | ECWPNPC ---
PATIENT NAME: FRED MICHELLE : 1950 GENDER: FEMALE VISIT DATE: 08/18/2017 DISCHARGE DATE: 08/18/17 1052 VISIT LOCKED DATE TIME: PHYSICIAN: AMADOU STINSON RESOURCE: AMADOU STINSON HISTORY OF PRESENT ILLNESS HISTORY OF PRESENT ILLNESS: PAIN THE PATIENT DESCRIBES THE PAIN... FALL RISK SCREENING: SCREENING :NO FALLS IN THE PAST YEAR TODAY'S VISIT: NOTES: RATES PAIN LEVEL TODAY 07/06. IS S/P LEFT HIP INJECTION 07/06/17 IS STILL HAVING PAIN RADITING TO GROIN.. NOTES PAIN IN CENTERLOW BACK SHOOTING ACROSS THE SACRUM. IS VERY CONSTIPATED AND POSS WITH URINATION. CAN'T SEEM TO EMPTY THE BLADDER. CURRENT MEDICATIONS TAKING CARVEDILOL 12.5 MG TABLET ORALLY TWICE A DAY TAKING AMLODIPINE BESYLATE 10 MG TABLET 1 TABLET ORALLY ONCE A DAY TAKING VITAMIN D3 1000 UNIT CAPSULE 1 CAPSULE ORALLY BID TAKING CALCIUM + D3 600-200 MG-UNIT TABLET 1 TAB ORALLY BID TAKING MULTI FOR HER - TABLET 1 TAB ORALLY DAILY TAKING LISINOPRIL 40 MG TABLET 1 TABLET ORALLY ONCE A DAY TAKING ZETIA 10 MG TABLET 1 TABLET ORALLY ONCE A DAY TAKING LEVOTHYROXINE SODIUM 25 MCG TABLET 1 TABLET ON AN EMPTY STOMACH IN THE MORNING ORALLY ONCE A DAY TAKING DICLOFENAC SODIUM 75 MG TABLET DELAYED RELEASE 1 TABLET WITH FOOD OR MILK ORALLY TWICE A DAY TAKING DICLOFENAC SODIUM 1 % GEL 3G TO THE AFFECTED AREA OF RIGHT SHOULDER AND ARM TRANSDERMAL EVERY 8 HRS NEEDED TAKING VENLAFAXINE HCL ER 150 MG CAPSULE EXTENDED RELEASE 24 HOUR 1 CAPSULE WITH FOOD ORALLY ONCE A DAY, NOTES: EQUAL 187.5MG ONCE A DAY TAKING VENLAFAXINE HCL ER 37.5 MG CAPSULE EXTENDED RELEASE 24 HOUR 1 CAPSULE WITH FOOD ORALLY ONCE A DAY, NOTES: COMBINE WITH 150MG DOSE TO EQUAL 187.5MG ONCE A DAY TAKING CLONAZEPAM 1 MG TABLET 1 TABLET ORALLY TWICE A DAY TAKING COLACE 100 MG CAPSULE 1 CAPSULE NEEDED ORALLY BID UNKNOWN TIZANIDINE HCL 2 MG TABLET 1 TABLET NEEDED ORALLY BID UNKNOWN NORCO 5-325 MG TABLET 1 TABLET NEEDED ORALLY Q 6 HRS PRN PAIN MDD=2 UNKNOWN BACTRIM DS 800-160 MG TABLET 1 TABLET ORALLY TWICE A DAY UNKNOWN LIDOCAINE HCL JELLY [facility] 2 % JELLY 1 APPLICATION TO AFFECTED AREA NEEDED INTRAVESICALLY PRIOR TO PROCEDURE UNKNOWN PRAZOSIN HCL 1 MG CAPSULE 1 CAPSULE AT BEDTIME ORALLY ONCE A DAY MEDICATION LIST REVIEWED AND RECONCILED WITH THE PATIENT PAST MEDICAL HISTORY HTN (ETT 06/11 NEG) ANXIETY DEPRESSION HYPOTHYROID WITH 2 SMALL CYSTS HX OF C.DIFF TOBACCO ABUSE ETOH ABUSE IN REMISSION ALLERGIES STATINS (FOR ALLERGY USE ONLY): ACHY, PAINFUL MUSCLES: ALLERGY MAGNESIUM: DIARRHEA: ALLERGY TRAZODONE HCL: MUSCLE ACHES: ALLERGY CYMBALTA: SEVERE STOMACH ACHE: SIDE EFFECTS PROZAC: NAUSEA/VOMITING: ALLERGY SOCIAL HISTORY GENERAL: TOBACCO USE ARE YOU A:CURRENT SMOKER ARE YOU INTERESTED IN QUITTING?THINKING ABOUT QUITTING HAS PAMPHLETS AND OTHER MATERIAL AT HOME COUNSELED THE PATIENT ON SMOKING CESSATION, EDUCATION HBTIONPI17/19/2017 HOW MANY CIGARETTES A DAY DO YOU SMOKE?6-10 HOW SOON AFTER YOU WAKE UP DO YOU SMOKE YOUR FIRST CIGARETTE?6-30 MIN HOW OFTEN DO YOU SMOKE CIGARETTES?EVERY DAY PATIENT COUNSELED ON THE DANGERS OF TOBACCO USE AND URGED TO QUIT:06/15/2017 SMOKING CESSATION INFORMATION GIVEN06/15/2017 SHE IS TRYING TO QUIT. SHE HAS THE INFORMATION ALREADY. ALCOHOL SCREENING DID YOU HAVE A DRINK CONTAINING ALCOHOL IN THE PAST YEAR?NO POINTS0 INTERPRETATIONNEGATIVE RECREATIONAL DRUG USE DRUG USE?NO CAFFEINE CAFFEINE USE?NO HIV / HEP-C SCREENING HIV TEST OFFERED TO PATIENT:YES DATE OFFERED:04/02/2017 TEST ACCEPTED:NO REASON:PATIENT DECLINED HEP-C TEST OFFERED TO PATIENT:YES DATE OFFERED:04/02/2017 TEST ACCEPTED:NO REASON:PATIENT DECLINED OCCUPATION: RETIRED. DIET: REGULAR. EXERCISE: WALKS, SWIMS. MARITAL STATUS: . OTHERS AT HOME: NONE. JAIN [id number] [employer]IN[employer] LANGUAGE LANGUAGES SPOKEN:WOLOF EDUCATION LEVEL OF EDUCATION:NOT FINISHED COLLEGE LEARNING BARRIERS / SPECIAL NEEDS BARRIERS TO LEARNING?NO HEARING IMPAIRED?NO VISION IMPAIRED?YES :CORRECTIVE LENSES GLASSES COGNITIVELY IMPAIRED?NO READINESS TO LEARN?YES LEARNING PREFERENCES?NO LEARNING CAPABILITIES PRESENT?YES EMOTIONAL BARRIERS?NO SPECIAL DEVICES?NO CASE MANAGER SPECIALIST NEEDED?NO PAIN CLINIC PFS, CLERGY, PUBLIC HEALTH REFERRALS PFS REFERRAL NEEDED?NO CLERGY REFERRAL NEEDED?NO PUBLIC HEALTH REFERRAL NEEDED?NO HAS THE PATIENT BEEN EDUCATED REGARDING HIS/HER PLAN OF CARE?YES HAS THE PATIENT BEEN EDUCATED REGARDING PAIN, THE RISK FOR PAIN, THE IMPORTANCE OF EFFECTIVE PAIN MANAGEMENT, AND THE PAIN ASSESSMENT PROCESS?YES PATIENT: ____. ADVANCE DIRECTIVES HEALTH CARE PROXY?NO WOULD YOU LIKE MORE INFORMATION?NO ALREADY HAS DO YOU HAVE A DNR?NO WOULD YOU LIKE MORE INFORMATION?NO LIVING WILL?NO WOULD YOU LIKE MORE INFORMATION?NO POWER OF METER INSTALLER AND REMOVER?NO WOULD YOU LIKE MORE INFORMATION?NO REVIEW OF SYSTEMS REVIEWED BY: PROVIDER: . CONSTITUTIONAL: ANY CHANGE IN YOUR MEDICAL CONDITION? NO . CHILLS NO . FEVER NO . INFECTION: DO YOU HAVE NEW INFECTIONS? NO . DO YOU HAVE HISTORY OF MRSA? NO . MUSCULOSKELETAL: ANY NEW PATTERNS OF PAIN OR NUMBNESS? YES, BOTH HIPS AND NEW PAIN TO BACK OF LEFT LEG/ HURTS SO BAD SHE FEELS "LIKE SHE IS DYING" . GASTROENTEROLOGY: ANY NEW CHANGE IN BOWEL CONTROL? NO . GENITOURINARY: ANY NEW CHANGE IN BLADDER CONTROL? NO . IS THERE A CHANCE YOU COULD BE ? NO . HEMATOLOGY/LYMPH: DO YOU TAKE ANY BLOOD THINNERS? (FOR EXAMPLE- COUMADIN, PLAVIX, AGGRENOX, PLATEL, PRADAXA, OR XARELTO) NO . WHEN WAS YOUR LAST DOSE? DATE: TIME: . NEUROLOGY: HAVE YOU FALLEN IN THE PAST 6 MONTHS? NO . ANY NEW EXTREMITY NUMBNESS OR WEAKNESS? NO . CARDIOLOGY: DO YOU HAVE A PACEMAKER OR DEFIBRILLATOR? NO . RESPIRATORY: HAVE YOU BEEN SICK IN THE PAST WEEK? NO . FEVER NO . FLU LIKE SYMPTOMS? NO . COUGH NO . INTEGUMENTARY: DO YOU HAVE ANY RASHES OR OPEN SORES? NO . ALLERGIC/IMMUNO: ARE YOU ALLERGIC TO SHELLFISH OR IV DYE? NO . ANY NEW ALLERGIES? NO . PSYCHIATRIC: DO YOU HAVE THOUGHTS OF HURTING YOURSELF OR SOMEONE ELSE? NO . ARE YOU ABUSED, NEGLECTED, OR IN AN UNSAFE ENVIRONMENT? NO . ENDOCRINOLOGY: ARE YOU DIABETIC? NO . OTHER: DO YOU NEED ANY PRESCRIPTIONS? NO . IF YES, PLEASE LIST: ____ . ANY NEW PROBLEMS WITH YOUR MEDICATIONS? NO . WHEN DID YOU LAST EAT? ____ . WHEN DID YOU LAST DRINK? ____ . WHAT DID YOU LAST DRINK? ____ . NAME OF PERSON DRIVING YOU HOME? ____ . DO YOU HAVE ANY OTHER QUESTIONS OR CONCERNS NO . 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 FOLLOWUP SCHEDULED FOR 1 YEAR . VITAL SIGNS WT 138 LBS, HT 62.5 IN, BMI 24.84 INDEX, BP 112/69 MM HG, HR 82 /MIN, RR 16 /MIN, TEMP 97.0 F, OXYGEN SAT % 96%, NA INITIALS AW 0941, REVIEWED BY: NL. EXAMINATION GENERAL EXAMINATION: PSYCHALERT , ORIENTED X 3 , FRUSTRATED. LUNGS:CLEAR TO AUSCULTATION BILATERALLY. HEART:HEART RATE REGULAR. MUSCULOSKELETAL: POINT TENDERNESS OVER RIGHT> LEFT TROCANTERIC BURSA, WELL LEFT >RRIGHT PIRIFORMIS MUSCLE GROUP AND ILIOTIBIAL BAND. MINIMAL TENDERNESS WITH PALPATION OVER LUMBAR SPINOUS PROCESSES AND ACROSS THE LUMBOSACRAL AXIS. SLOW TO RISE TO STANDING POSITION. POSTURE STOOPED. GAIT SLOW, WIDEBASED, ANTALGIC.. 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 TROCHANTERIC BURSITIS, RIGHT HIP ARTHROCENTESIS INJECTION LARGE JOINT ([id number])AMADOU STINSON 08/18/2017 10:31:43 AM > LEFT PREVENTIVE MEDICINE REVIEWED PRE PROCEDURE CARE WITH PT EXPRESSING UNDERSTANDING. PROCEDURE CODES FA211 ESTABILISHED PATIENT [facility] FAC[facility] CHARGE G8730 PAIN ASSESS POS TOOL F/U PLAN DOC G8427 DOC MEDS VERIFIED W/PT OR RE DISPOSITION & COMMUNICATION FOLLOW UP AFTER INJECTION (REASON: SCHED FOR HIP JOINT INJECTION CORINNE, FOLLOWED BY JOSE LUISB) ELECTRONICALLY SIGNED BY ESDRAS ANDERSON ON 08/28/2017 AT 01:07 PM EST DISCLAIMER : THIS IS A VISIT SUMMARY EXTRACTED FROM THE [employer] CHART. IT IS NOT A COPY OF THE [employer] PROGRESS NOTE. DAMARID
== END ==
LOC: M PAIN 09:30
PROVIDERS: ATTEND Nurse Practitioner Family
DX: G89.29 Other chronic pain (principal); M51.16 Intervertebral disc disorders with radiculopathy, lumbar region; M76.32 Iliotibial band syndrome, left leg; M70.61 Trochanteric bursitis, right hip; M25.552 Pain in left hip; I10 Essential (primary) hypertension; E78.5 Hyperlipidemia, unspecified; F17.210 Nicotine dependence, cigarettes, uncomplicated; F10.10 Alcohol abuse, uncomplicated; E03.9 Hypothyroidism, unspecified; F33.1 Major depressive disorder, recurrent, moderate; F41.9 Anxiety disorder, unspecified; Z88.8 Allergy status to other drugs, medicaments and biological substances; Z79.899 Other long term (current) drug therapy

== ENCOUNTER → 2017-08-26 | Outpatient (CLI) | payer MEDICARE ==
[~2017-08-26] MED LIST changes: +BUPIVACAINE HCL 0.25% 30 ML VIAL As Ordered ONE; +ISOVUE-M 300 61% 15ML VIAL (Q9967) As Ordered ONE; +LIDOCAINE 1% SDV INJ 30 ML VIAL As Ordered ONE; +TRIAMCINOLONE ACETONIDE SUSP 40 MG/ML VIAL (J3301) As Ordered ONE; +diazePAM 5 MG TAB As Ordered ONE; +oxyCODONE 5MG TAB As Ordered ONE
--- NOTE | 2017-08-26 13:19 | REP ---
Partial left hip series: Four views. History: Injection procedure for pain. 10 seconds of fluoroscopy time is reported. Findings: A sequence of four last image hold fluoroscopic spot radiographs of the left hip document various needle positions and contrast injection associated with injection procedure. Signed by Javier Abraham MD 08/26/2017 04:08 P
--- NOTE | 2017-09-08 00:14 | ECWPNPC ---
PATIENT NAME: FRED MICHELLE : 1950 GENDER: FEMALE VISIT DATE: 08/26/2017 DISCHARGE DATE: 08/26/17 1234 VISIT LOCKED DATE TIME: PHYSICIAN: POOJA KENNEY RESOURCE: POOJA KENNEY REASON FOR APPOINTMENT 1. HIP JOINT INJECTION CORINNE HISTORY OF PRESENT ILLNESS HISTORY OF PRESENT ILLNESS: PAIN THE PATIENT DESCRIBES THE PAIN... FALL RISK SCREENING: SCREENING :NO FALLS IN THE PAST YEAR CURRENT MEDICATIONS TAKING TRAMADOL HCL 50 MG TABLET 1 -2 TABLET NEEDED ORALLY EVERY 6 HRS PRN PAIN MDD=6, NOTES: 08/26/17599 TAKING POLYETHYLENE GLYCOL - POWDER DIRECTED ORALLY 17 GM IN 8 OUNCES FLUID DAILY FOR CONSTIPATION, NOTES: 08/25/172099 TAKING VITAMIN D3 1000 UNIT CAPSULE 1 CAPSULE ORALLY BID, NOTES: 08/26/17599 TAKING CALCIUM + D3 600-200 MG-UNIT TABLET 1 TAB ORALLY BID, NOTES: 08/26/17599 TAKING MULTI FOR HER - TABLET 1 TAB ORALLY DAILY, NOTES: 08/26/17599 TAKING DICLOFENAC SODIUM 1 % GEL 3G TO THE AFFECTED AREA OF RIGHT SHOULDER AND ARM TRANSDERMAL EVERY 8 HRS NEEDED, NOTES: > 1 MONTH TAKING CLONAZEPAM 1 MG TABLET 1 TABLET ORALLY TWICE A DAY, NOTES: 08/26/17599 TAKING COLACE 100 MG CAPSULE 1 CAPSULE NEEDED ORALLY BID, NOTES: 08/25/172099 TAKING VENLAFAXINE HCL ER 37.5 MG CAPSULE EXTENDED RELEASE 24 HOUR 1 CAPSULE WITH FOOD ORALLY ONCE A DAY, NOTES: 08/26/17599 TAKING VENLAFAXINE HCL ER 150 MG CAPSULE EXTENDED RELEASE 24 HOUR 1 CAPSULE WITH FOOD ORALLY ONCE A DAY, NOTES: 08/26/17599 TAKING DICLOFENAC SODIUM 75 MG TABLET DELAYED RELEASE 1 TABLET WITH FOOD OR MILK ORALLY TWICE A DAY, NOTES: 08/26/17599 TAKING LEVOTHYROXINE SODIUM 25 MCG TABLET 1 TABLET ON AN EMPTY STOMACH IN THE MORNING ORALLY ONCE A DAY, NOTES: 08/26/17599 TAKING ZETIA 10 MG TABLET 1 TABLET ORALLY ONCE A DAY, NOTES: 08/25/172099 TAKING LISINOPRIL 40 MG TABLET 1 TABLET ORALLY ONCE A DAY, NOTES: 08/25/172099 TAKING AMLODIPINE BESYLATE 10 MG TABLET 1 TABLET ORALLY ONCE A DAY, NOTES: 08/26/17599 TAKING CARVEDILOL 12.5 MG TABLET 1 TAB ORALLY TWICE A DAY, NOTES: 08/26/17 0600 NOT-TAKING TIZANIDINE HCL 2 MG TABLET 1 TABLET NEEDED ORALLY BID NOT-TAKING NORCO 5-325 MG TABLET 1 TABLET NEEDED ORALLY Q 6 HRS PRN PAIN MDD=2 NOT-TAKING BACTRIM DS 800-160 MG TABLET 1 TABLET ORALLY TWICE A DAY NOT-TAKING LIDOCAINE HCL JELLY FPC 2 % JELLY 1 APPLICATION TO AFFECTED AREA NEEDED INTRAVESICALLY PRIOR TO PROCEDURE NOT-TAKING PRAZOSIN HCL 1 MG CAPSULE 1 CAPSULE AT BEDTIME ORALLY ONCE A DAY MEDICATION LIST REVIEWED AND RECONCILED WITH THE PATIENT PAST MEDICAL HISTORY HTN (ETT 06/11 NEG) ANXIETY DEPRESSION HYPOTHYROID WITH 2 SMALL CYSTS HX OF C.DIFF TOBACCO ABUSE ETOH ABUSE IN REMISSION ALLERGIES STATINS (FOR ALLERGY USE ONLY): ACHY, PAINFUL MUSCLES: ALLERGY MAGNESIUM: DIARRHEA: ALLERGY TRAZODONE HCL: MUSCLE ACHES: ALLERGY CYMBALTA: SEVERE STOMACH ACHE: SIDE EFFECTS PROZAC: NAUSEA/VOMITING: ALLERGY SOCIAL HISTORY GENERAL: TOBACCO USE ARE YOU A:CURRENT SMOKER ARE YOU INTERESTED IN QUITTING?THINKING ABOUT QUITTING HAS PAMPHLETS AND OTHER MATERIAL AT HOME COUNSELED THE PATIENT ON SMOKING CESSATION, EDUCATION [id number]/19/2017 HOW MANY CIGARETTES A DAY DO YOU SMOKE?6-10 HOW SOON AFTER YOU WAKE UP DO YOU SMOKE YOUR FIRST CIGARETTE?6-30 MIN HOW OFTEN DO YOU SMOKE CIGARETTES?EVERY DAY PATIENT COUNSELED ON THE DANGERS OF TOBACCO USE AND URGED TO QUIT:06/15/2017 SMOKING CESSATION INFORMATION GIVEN06/15/2017 SHE IS TRYING TO QUIT. SHE HAS THE INFORMATION ALREADY. ALCOHOL SCREENING DID YOU HAVE A DRINK CONTAINING ALCOHOL IN THE PAST YEAR?NO POINTS0 INTERPRETATIONNEGATIVE RECREATIONAL DRUG USE DRUG USE?NO CAFFEINE CAFFEINE USE?NO HIV / HEP-C SCREENING HIV TEST OFFERED TO PATIENT:YES DATE OFFERED:04/02/2017 TEST ACCEPTED:NO REASON:PATIENT DECLINED HEP-C TEST OFFERED TO PATIENT:YES DATE OFFERED:04/02/2017 TEST ACCEPTED:NO REASON:PATIENT DECLINED OCCUPATION: RETIRED. DIET: REGULAR. EXERCISE: WALKS, SWIMS. MARITAL STATUS: . OTHERS AT HOME: NONE. SABIANIST [id number] YARSANI LANGUAGE LANGUAGES SPOKEN:ITALIAN EDUCATION LEVEL OF EDUCATION:NOT FINISHED COLLEGE LEARNING BARRIERS / SPECIAL NEEDS BARRIERS TO LEARNING?NO HEARING IMPAIRED?NO VISION IMPAIRED?YES :CORRECTIVE LENSES GLASSES COGNITIVELY IMPAIRED?NO READINESS TO LEARN?YES LEARNING PREFERENCES?NO LEARNING CAPABILITIES PRESENT?YES EMOTIONAL BARRIERS?NO SPECIAL DEVICES?NO C++ QUANT DEVELOPER NEEDED?NO PAIN CLINIC PFS, CLERGY, PUBLIC HEALTH REFERRALS PFS REFERRAL NEEDED?NO CLERGY REFERRAL NEEDED?NO PUBLIC HEALTH REFERRAL NEEDED?NO HAS THE PATIENT BEEN EDUCATED REGARDING HIS/HER PLAN OF CARE?YES HAS THE PATIENT BEEN EDUCATED REGARDING PAIN, THE RISK FOR PAIN, THE IMPORTANCE OF EFFECTIVE PAIN MANAGEMENT, AND THE PAIN ASSESSMENT PROCESS?YES REVIEWED BY: 08/26/17 SHANTELLE. PATIENT: ____. ADVANCE DIRECTIVES HEALTH CARE PROXY?NO WOULD YOU LIKE MORE INFORMATION?NO ALREADY HAS DO YOU HAVE A DNR?NO WOULD YOU LIKE MORE INFORMATION?NO LIVING WILL?NO WOULD YOU LIKE MORE INFORMATION?NO POWER OF ROLLING MACHINE OPERATOR?NO WOULD YOU LIKE MORE INFORMATION?NO REVIEW OF SYSTEMS REVIEWED BY: PROVIDER: . CONSTITUTIONAL: ANY CHANGE IN YOUR MEDICAL CONDITION? NO . CHILLS NO . FEVER NO . INFECTION: DO YOU HAVE NEW INFECTIONS? NO . DO YOU HAVE HISTORY OF MRSA? NO . MUSCULOSKELETAL: ANY NEW PATTERNS OF PAIN OR NUMBNESS? NO . GASTROENTEROLOGY: ANY NEW CHANGE IN BOWEL CONTROL? NO . GENITOURINARY: ANY NEW CHANGE IN BLADDER CONTROL? NO . IS THERE A CHANCE YOU COULD BE ? NO . HEMATOLOGY/LYMPH: DO YOU TAKE ANY BLOOD THINNERS? (FOR EXAMPLE- COUMADIN, PLAVIX, AGGRENOX, PLATEL, PRADAXA, OR XARELTO) NO . WHEN WAS YOUR LAST DOSE? DATE: TIME: . NEUROLOGY: HAVE YOU FALLEN IN THE PAST 6 MONTHS? NO . ANY NEW EXTREMITY NUMBNESS OR WEAKNESS? NO . CARDIOLOGY: DO YOU HAVE A PACEMAKER OR DEFIBRILLATOR? NO . RESPIRATORY: HAVE YOU BEEN SICK IN THE PAST WEEK? NO . FEVER NO . FLU LIKE SYMPTOMS? NO . COUGH NO . INTEGUMENTARY: DO YOU HAVE ANY RASHES OR OPEN SORES? NO . ALLERGIC/IMMUNO: ARE YOU ALLERGIC TO SHELLFISH OR IV DYE? NO . ANY NEW ALLERGIES? NO . PSYCHIATRIC: DO YOU HAVE THOUGHTS OF HURTING YOURSELF OR SOMEONE ELSE? NO . ARE YOU ABUSED, NEGLECTED, OR IN AN UNSAFE ENVIRONMENT? NO . ENDOCRINOLOGY: ARE YOU DIABETIC? NO . OTHER: DO YOU NEED ANY PRESCRIPTIONS? NO . IF YES, PLEASE LIST: ____ . ANY NEW PROBLEMS WITH YOUR MEDICATIONS? NO . WHEN DID YOU LAST EAT? ____08/26/17 0500 . WHEN DID YOU LAST DRINK? ____08/26/17 0700 . WHAT DID YOU LAST DRINK? ____WATER . NAME OF PERSON DRIVING YOU HOME? ____WALLY . DO YOU HAVE ANY OTHER QUESTIONS OR CONCERNS NO . VITAL SIGNS WT 138 LBS, HT 62.5 IN, BMI 24.84 INDEX, BP 133/73 MM HG, HR 74 /MIN, RR 16 /MIN, TEMP 97.0 F, OXYGEN SAT % 95%, SAFE IN ENV? (Y/N) YES, NA INITIALS VT 10:43, REVIEWED BY: SHANTELLE. ASSESSMENTS TROCHANTERIC BURSITIS OF LEFT HIP - M70.62 (PRIMARY) TREATMENT TROCHANTERIC BURSITIS OF LEFT HIP NOTES: PREPROCEDURE DIAGNOSIS: BURSITIS AT THE LEFT GREATER TROCHANTER OF THE FEMUR. POSTPROCEDURE DIAGNOSIS: BURSITIS AT THE LEFT GREATER TROCHANTER OF THE FEMUR. PROCEDURE: INJECTION AT THE BURSA OF THE OF THE LEFT GREATER TROCHANTER OF THE FEMUR UNDER FLUOROSCOPIC GUIDANCE. SURGEON: DR. POOJA KENNEY CHIEF NURSE EXECUTIVE: NONEANESTHESIA: LOCAL. PREOPERATIVE NOTE: THE PATIENT HAS A HISTORY OF LEFT HIP PAIN. I EVALUATED THE PATIENT AND REVIEWED THE CHART. WE BOTH AGREE ON INJECTING OVER THE BURSA OF THE LEFT GREATER TROCHANTER OF THE FEMUR. I WENT THROUGH THE RISKS, ALTERNATIVES, AND BENEFITS ASSOCIATED WITH THIS PROCEDURE. THE PATIENT WOULD LIKE TO PROCEED AND GIVE CONSENT TO PERFORMED THE PROCEDURE. THE PATIENT DENIES UNEXPLAINABLE WEIGHT LOSS, FEVERS, CHILLS, OR CHANGES IN HIS URINARY OR BOWEL CONTROL. DESCRIPTION OF PROCEDURE: AFTER CONSENT WAS TAKEN, THE PATIENT WAS BROUGHT TO THE PROCEDURE ROOM AND PLACED IN THE RIGHT LATERAL DECUBITUS POSITION. THE LEFT HIP AREA WAS CLEANED WITH CHLORAPREP SOLUTION AND DRAPED ASEPTICALLY. THE PROCEDURE WAS DONE UNDER STERILE CONDITIONS. I CHECKED LATERALITY WITH THE PATIENT AND THE STAFF IN THE PROCEDURE ROOM AT THE MOMENT OF THE TIME OUT. UNDER FLUOROSCOPIC GUIDANCE, TARGET WAS SELECTED AT THE LEFT GREATER TROCHANTER OF THE FEMUR. LIDOCAINE WAS USED TO NUMB THE SKIN AND THE SUBCUTANEOUS TISSUE BELOW IT. SPINAL NEEDLE, 22-GAUGE WAS ADVANCED UNDER FLUOROSCOPIC GUIDANCE AND FOLLOWING PATIENT FEEDBACK UNTIL THE TARGET WAS TOUCHED. POSITION OF THE NEEDLE WAS VERIFIED WITH AP AND LATERAL VIEWS. AFTER PROPER POSITION OF THE NEEDLE WAS ACHIEVED, ISOVUE M DYE, 30%, 0.25 ML WAS INJECTED SHOWING ADEQUATE SPREAD OF THE DYE. THEN A SOLUTION OF 20 ML OF BUPIVACAINE 0.25% AND KENALOG 40 MG WAS INJECTED. THERE WAS NO EVIDENCE OF BLOOD, PARESTHESIA, OR CEREBROSPINAL FLUID. THE PATIENT WAS SENT TO THE RECOVERY ROOM. THE PATIENT WAS MOVING THE EXTREMITIES AND DOING WELL. THERE WERE NO COMPLICATIONS DURING THE PROCEDURE. POSTOPERATIVE NOTE: I DISCUSSED ALTERNATIVES WITH THE PATIENT. WE WILL SEE THE PATIENT BACK IN SEVERAL WEEKS FOR REEVALUATION OF THE CASE. I AM LOOKING FOR LONG-LASTING PAIN RELIEF WITH THIS INTERVENTION. FLUOROSCOPIC TIME WAS 10 SECONDS. FURTHER RECOMMENDATIONS WILL BE DONE DEPENDING ON HOW THE PATIENT DOES. THERE WERE NO COMPLICATIONS.I, TIERNEY STEINER, DOCUMENTED THE ABOVE INFORMATION ACTING A SCRIBE FOR DR. KENNEY. I HAVE REVIEWED THE ABOVE DOCUMENT, WRITTEN BY TIERNEY STEINER SCRIBCarolyn AND I VERIFY THAT IT IS ACCURATE. DIAGNOSTIC IMAGING [facility] FLUORO GUIDANCE (PAIN)[id number] PROCEDURE CODES 17360 DRAIN/INJ JOINT/BURSA W/O US, MODIFIERS: LT 6045F RADXPS IN END [id number] PXD [id number] NEEDLE LOCALIZATION BY XRAY, MODIFIERS: 26 DISPOSITION & COMMUNICATION FOLLOW UP 2 WEEKS ELECTRONICALLY SIGNED BY POOJA KENNEY MD ON 09/07/2017 AT 09:43 PM EST DISCLAIMER : THIS IS A VISIT SUMMARY EXTRACTED FROM THE [employer] CHART. IT IS NOT A COPY OF THE [employer] PROGRESS NOTE. MTDD
== END ==
LOC: M PAIN 10:30
PROVIDERS: ATTEND Anesthesiology
DX: G89.29 Other chronic pain (principal); M70.62 Trochanteric bursitis, left hip; I10 Essential (primary) hypertension; F41.9 Anxiety disorder, unspecified; F32.9 Major depressive disorder, single episode, unspecified; E03.9 Hypothyroidism, unspecified; E78.5 Hyperlipidemia, unspecified; F10.10 Alcohol abuse, uncomplicated; F17.210 Nicotine dependence, cigarettes, uncomplicated; Z88.8 Allergy status to other drugs, medicaments and biological substances; Z79.891 Long term (current) use of opiate analgesic; Z79.899 Other long term (current) drug therapy
CPT/HCPCS: 20610; 77002; J3301; Q9967

== ENCOUNTER → 2017-09-24 | Outpatient (CLI) | payer MEDICARE | LOC: M PAIN 10:00 | DX: M51.16 Intervertebral disc disorders with radiculopathy, lumbar region (principal); M76.32 Iliotibial band syndrome, left leg; M70.61 Trochanteric bursitis, right hip; M25.552 Pain in left hip; I10 Essential (primary) hypertension; F41.9 Anxiety disorder, unspecified; F32.9 Major depressive disorder, single episode, unspecified; E03.9 Hypothyroidism, unspecified; F17.210 Nicotine dependence, cigarettes, uncomplicated; F10.21 Alcohol dependence, in remission; Z88.8 Allergy status to other drugs, medicaments and biological substances; Z79.899 Other long term (current) drug therapy | CPT/HCPCS: G0463 ==

== ENCOUNTER → 2017-10-22 | Outpatient (CLI) | payer MEDICARE | LOC: M PAIN 13:00 | DX: M51.16 Intervertebral disc disorders with radiculopathy, lumbar region (principal); M76.32 Iliotibial band syndrome, left leg; M70.61 Trochanteric bursitis, right hip; M25.552 Pain in left hip; I10 Essential (primary) hypertension; E03.9 Hypothyroidism, unspecified; F41.9 Anxiety disorder, unspecified; F10.10 Alcohol abuse, uncomplicated; F32.9 Major depressive disorder, single episode, unspecified; F17.200 Nicotine dependence, unspecified, uncomplicated; Z79.891 Long term (current) use of opiate analgesic; Z79.899 Other long term (current) drug therapy; Z88.8 Allergy status to other drugs, medicaments and biological substances | CPT/HCPCS: G0463 ==

== ENCOUNTER → 2017-10-27 | Outpatient (CLI) | payer MEDICARE | LOC: M RAD 10:02 | DX: M51.16 Intervertebral disc disorders with radiculopathy, lumbar region (principal) | CPT/HCPCS: 72148 ==

== ENCOUNTER → 2017-11-22 | Outpatient (CLI) | payer MEDICARE | LOC: M RAD 09:57 | DX: M51.36 Other intervertebral disc degeneration, lumbar region (principal) | CPT/HCPCS: 72110 ==

== ENCOUNTER → 2017-12-10 | Outpatient (CLI) | payer MEDICARE | LOC: M PAIN 11:30 | DX: M51.16 Intervertebral disc disorders with radiculopathy, lumbar region (principal); M76.32 Iliotibial band syndrome, left leg; M70.61 Trochanteric bursitis, right hip; M25.552 Pain in left hip; I10 Essential (primary) hypertension; F41.9 Anxiety disorder, unspecified; F32.9 Major depressive disorder, single episode, unspecified; E03.9 Hypothyroidism, unspecified; F17.210 Nicotine dependence, cigarettes, uncomplicated; F10.21 Alcohol dependence, in remission; Z79.899 Other long term (current) drug therapy; Z88.1 Allergy status to other antibiotic agents; Z88.8 Allergy status to other drugs, medicaments and biological substances | CPT/HCPCS: G0463 ==

== ENCOUNTER → 2018-01-19 | Outpatient (CLI) | payer MEDICARE | LOC: M PAIN 09:45 | DX: G89.29 Other chronic pain (principal); M51.16 Intervertebral disc disorders with radiculopathy, lumbar region; M76.32 Iliotibial band syndrome, left leg; M70.61 Trochanteric bursitis, right hip; M25.552 Pain in left hip; M46.96 Unspecified inflammatory spondylopathy, lumbar region; I10 Essential (primary) hypertension; F41.9 Anxiety disorder, unspecified; F32.9 Major depressive disorder, single episode, unspecified; E03.9 Hypothyroidism, unspecified; F10.21 Alcohol dependence, in remission; F17.210 Nicotine dependence, cigarettes, uncomplicated; Z88.1 Allergy status to other antibiotic agents; Z88.8 Allergy status to other drugs, medicaments and biological substances; Z79.891 Long term (current) use of opiate analgesic; Z79.899 Other long term (current) drug therapy | CPT/HCPCS: G0463 ==

== ENCOUNTER → 2018-01-26 | Outpatient (CLI) | payer MEDICARE ==
[~2018-01-26] MED LIST changes: -AMLO10TA2 PO; -BAYE81TA7 PO; +BUPIVACAINE HCL 0.25% 30 ML VIAL As Ordered; -BUPIVACAINE HCL 0.25% 30 ML VIAL As Ordered ONE; -CALC1TAB21 PO; -CARV12.5 PO; -CIPR500T3 PO; -CLON-412 PO; -CLON1TAB PO; -FOLI1TAB4 PO; +ISOVUE-M 300 61% 15ML VIAL (Q9967) As Ordered; -ISOVUE-M 300 61% 15ML VIAL (Q9967) As Ordered ONE; -LEVO25TA5 PO; +LIDOCAINE 1% SDV INJ 30 ML VIAL As Ordered; -LIDOCAINE 1% SDV INJ 30 ML VIAL As Ordered ONE; -LISI40TAB PO; -MULTCAP8 PO; -STOO100C PO; -TRIAMCINOLONE ACETONIDE SUSP 40 MG/ML VIAL (J3301) As Ordered ONE; -TYLE650T35 PO; -VENL150C43 PO; -VENL150T PO; -VENL1TAB35 PO; -VITA-182 PO; -VITA100L PO; -ZETI10TA30 PO; -diazePAM 5 MG TAB As Ordered ONE; -oxyCODONE 5MG TAB As Ordered ONE
== END | disposition home or self-care (01) ==
LOC: M PAIN 08:45
DX: G89.29 Other chronic pain (principal); M47.816 Spondylosis without myelopathy or radiculopathy, lumbar region; M47.817 Spondylosis without myelopathy or radiculopathy, lumbosacral region; I10 Essential (primary) hypertension; F41.9 Anxiety disorder, unspecified; F33.9 Major depressive disorder, recurrent, unspecified; E03.9 Hypothyroidism, unspecified; Z79.899 Other long term (current) drug therapy; Z79.890 Hormone replacement therapy; Z88.1 Allergy status to other antibiotic agents; Z88.8 Allergy status to other drugs, medicaments and biological substances; F10.11 Alcohol abuse, in remission; F17.210 Nicotine dependence, cigarettes, uncomplicated
CPT/HCPCS: Q9967

== ENCOUNTER → 2018-01-31 | Outpatient (REF) | payer MEDICARE ==
[2018-01-31 19:11] LABS: APPEARANCE, URINE CLEAR (CLEAR); BACTERIA, URINE AUTO NEGATIVE (NEGATIVE); BILIRUBIN, URINE AUTO NEGATIVE (NEGATIVE); BLOOD, URINE BLOOD NEGATIVE (NEGATIVE); COLOR, URINE STRAW (YELLOW); GLUCOSE, URINE (UA) AUTO NEGATIVE (NEGATIVE); KETONE, URINE AUTO NEGATIVE (NEGATIVE); LEUKOCYTE ESTERASE, URINE AUTO NEGATIVE (NEGATIVE); NITRITE, URINE AUTO NEGATIVE (NEGATIVE); PROTEIN, URINE AUTO NEGATIVE (NEGATIVE); RBC, URINE AUTO 1 /HPF (0-3); SPECIFIC GRAVITY URINE AUTO 1.008 (1.002-1.035); SQUAMOUS EPITHELIAL CELL UR AU 0 /HPF (0-6); UROBILINOGEN, URINE AUTO 0.2 mg/dL (0.0-2.0); WBC, URINE AUTO 1 /HPF (0-3)
== END ==
LOC: M SMT 17:28
DX: R30.0 Dysuria (principal)
CPT/HCPCS: 81001

== ENCOUNTER 2018-02-01 12:03 | Emergency (ER) | payer MEDICARE ==
[2018-02-01 13:31] LABS: APPEARANCE, URINE CLEAR (CLEAR); BACTERIA, URINE AUTO NEGATIVE (NEGATIVE); BILIRUBIN, URINE AUTO NEGATIVE (NEGATIVE); BLOOD, URINE BLOOD NEGATIVE (NEGATIVE); COLOR, URINE STRAW (YELLOW); GLUCOSE, URINE (UA) AUTO NEGATIVE (NEGATIVE); KETONE, URINE AUTO NEGATIVE (NEGATIVE); LEUKOCYTE ESTERASE, URINE AUTO NEGATIVE (NEGATIVE); MUCUS, URINE SMALL (NEGATIVE); NITRITE, URINE AUTO NEGATIVE (NEGATIVE); PROTEIN, URINE AUTO NEGATIVE (NEGATIVE); RBC, URINE AUTO 0 /HPF (0-3); SPECIFIC GRAVITY URINE AUTO 1.006 (1.002-1.035); SQUAMOUS EPITHELIAL CELL UR AU 1 /HPF (0-6); UROBILINOGEN, URINE AUTO 0.2 mg/dL (0.0-2.0); WBC, URINE AUTO 0 /HPF (0-3)
[2018-02-01 14:07] LABS: HEMATOCRIT 39.1 % (36.0-47.0); HEMOGLOBIN 13.5 g/dl (12.0-15.5); MEAN CORPUSCULAR HEMOGLOBIN 33.4 pg (27.0-33.0); MEAN CORPUSCULAR HGB CONC 34.5 g/dl (32.0-36.5); MEAN CORPUSCULAR VOLUME 96.8 fl (80.0-96.0); PLATELET COUNT, AUTOMATED 401 10^3/uL (150-450); RED BLOOD COUNT 4.04 10^6/uL (4.00-5.40); RED CELL DISTRIBUTION WIDTH 12.7 % (11.5-14.5); WHITE BLOOD COUNT 7.1 10^3/uL (4.0-10.0)
[2018-02-01 14:29] LABS: ALBUMIN/GLOBULIN RATIO 1.03 (1.00-1.93); ALKALINE PHOSPHATASE 75 U/L (45-117); ALT/SGPT 25 U/L (12-78); ANION GAP 2 MEQ/L (8-16); AST/SGOT 24 U/L (7-37); BILIRUBIN,TOTAL 0.3 MG/DL (0.2-1.0); BLOOD UREA NITROGEN 9 MG/DL (7-18); C REACTIVE PROTEIN QUANTITATIV < 0.30 MG/DL (0.00-0.30); CALCIUM LEVEL 10.5 MG/DL (8.8-10.2); CARBON DIOXIDE LEVEL 32 MEQ/L (21-32); CHLORIDE LEVEL 105 MEQ/L (98-107); CPK CREATINE PHOSPHOKINASE 81 U/L (26-192); CREATININE FOR GFR 0.68 MG/DL (0.55-1.30); FREE THYROXINE INDEX 3.7 % (1.3-4.8); GLOMERULAR FILTRATION RATE > 60.0 (>45); GLUCOSE, FASTING 102 MG/DL (70-100); LIPASE 163 U/L (73-393); POTASSIUM SERUM 3.9 MEQ/L (3.5-5.1); SODIUM LEVEL 139 MEQ/L (136-145); T UPTAKE 35 % (30-39); THYROXINE (T4) 10.7 UG/DL (4.5-12.0); TOTAL PROTEIN 7.9 GM/DL (6.4-8.2); TROPONIN I < 0.02 NG/ML (< 0.10)
[2018-02-01 14:38] LABS: ERYTHROCYTE SEDIMENTATION RATE 17 mm/hr (0-30)
[2018-02-01 15:22] LABS: CK-MB VALUE MASS 1.8 NG/ML (<3.6); MB/CK RELATIVE INDEX 2.22 (< OR =4)
== END 2018-02-01 16:06 | disposition home or self-care (01) ==
LOC: M ED 12:03
DX: R53.81 Other malaise (principal); I10 Essential (primary) hypertension; G89.29 Other chronic pain; M54.9 Dorsalgia, unspecified; E78.00 Pure hypercholesterolemia, unspecified; F17.200 Nicotine dependence, unspecified, uncomplicated; Z79.899 Other long term (current) drug therapy; Z88.0 Allergy status to penicillin; Z88.8 Allergy status to other drugs, medicaments and biological substances
CPT/HCPCS: 71046

== ENCOUNTER → 2018-02-07 | Outpatient (CLI) | payer MEDICARE | LOC: M WHC 13:25 | DX: Z12.31 Encounter for screening mammogram for malignant neoplasm of breast (principal); Z78.0 Asymptomatic menopausal state | CPT/HCPCS: 77067 ==

== ENCOUNTER → 2018-03-31 | Outpatient (CLI) | payer MEDICARE | LOC: M PAIN 08:45 | DX: G89.29 Other chronic pain (principal); M47.816 Spondylosis without myelopathy or radiculopathy, lumbar region; M47.817 Spondylosis without myelopathy or radiculopathy, lumbosacral region; I10 Essential (primary) hypertension; F41.9 Anxiety disorder, unspecified; F32.9 Major depressive disorder, single episode, unspecified; E03.9 Hypothyroidism, unspecified; F10.21 Alcohol dependence, in remission; Z79.899 Other long term (current) drug therapy; Z88.1 Allergy status to other antibiotic agents; Z88.8 Allergy status to other drugs, medicaments and biological substances | CPT/HCPCS: Q9967 ==

== ENCOUNTER → 2018-04-07 | Outpatient (REF) | payer MEDICARE ==
[2018-04-07 20:13] LABS: APPEARANCE, URINE CLEAR (CLEAR); BACTERIA, URINE AUTO NEGATIVE (NEGATIVE); BILIRUBIN, URINE AUTO NEGATIVE (NEGATIVE); BLOOD, URINE BLOOD 2+ (NEGATIVE); COLOR, URINE YELLOW (YELLOW); GLUCOSE, URINE (UA) AUTO NEGATIVE (NEGATIVE); KETONE, URINE AUTO NEGATIVE (NEGATIVE); LEUKOCYTE ESTERASE, URINE AUTO 3+ (NEGATIVE); MUCUS, URINE SMALL (NEGATIVE); NITRITE, URINE AUTO NEGATIVE (NEGATIVE); PROTEIN, URINE AUTO NEGATIVE (NEGATIVE); RBC, URINE AUTO 13 /HPF (0-3); SPECIFIC GRAVITY URINE AUTO 1.006 (1.002-1.035); SQUAMOUS EPITHELIAL CELL UR AU 1 /HPF (0-6); UROBILINOGEN, URINE AUTO 0.2 mg/dL (0.0-2.0); WBC, URINE AUTO 98 /HPF (0-3)
== END ==
LOC: M SMT 17:11
DX: R30.0 Dysuria (principal)
CPT/HCPCS: 81001

== ENCOUNTER → 2018-04-11 | Outpatient (CLI) | payer MEDICARE | LOC: M PAIN 13:45 | DX: M47.816 Spondylosis without myelopathy or radiculopathy, lumbar region (principal); M47.817 Spondylosis without myelopathy or radiculopathy, lumbosacral region; I10 Essential (primary) hypertension; F41.9 Anxiety disorder, unspecified; F32.9 Major depressive disorder, single episode, unspecified; E03.9 Hypothyroidism, unspecified; F10.11 Alcohol abuse, in remission; F17.210 Nicotine dependence, cigarettes, uncomplicated; Z79.891 Long term (current) use of opiate analgesic; Z79.899 Other long term (current) drug therapy; Z88.1 Allergy status to other antibiotic agents; Z88.8 Allergy status to other drugs, medicaments and biological substances | CPT/HCPCS: G0463 ==

== ENCOUNTER → 2018-04-14 | Outpatient (REF) | payer MEDICARE ==
[2018-04-14 16:26] LABS: HEMATOCRIT 39.6 % (36.0-47.0); HEMOGLOBIN 13.1 g/dl (12.0-15.5); MEAN CORPUSCULAR HEMOGLOBIN 33.2 pg (27.0-33.0); MEAN CORPUSCULAR HGB CONC 33.1 g/dl (32.0-36.5); MEAN CORPUSCULAR VOLUME 100.5 fl (80.0-96.0); PLATELET COUNT, AUTOMATED 349 10^3/uL (150-450); RED BLOOD COUNT 3.94 10^6/uL (4.00-5.40); RED CELL DISTRIBUTION WIDTH 12.4 % (11.5-14.5)
[2018-04-14 16:34] LABS: RHEUMATOID FACTOR QUANT < 10.0 IU/ML (<15.0)
[2018-04-14 17:12] LABS: ERYTHROCYTE SEDIMENTATION RATE 11 mm/hr (0-30)
[2018-04-18 00:07] LABS: CYCLIC CITRULLINATED PEPTIDE 6 units (0-19)
[2018-04-18 00:07] LABS: ANTINUCLEAR ANTIBODIES DIRECT Negative (Negative)
== END ==
LOC: M SFHCLERA 11:34
DX: M25.50 Pain in unspecified joint (principal)
CPT/HCPCS: 85027

== ENCOUNTER → 2018-04-29 | Outpatient (CLI) | payer MEDICARE | LOC: M RAD 17:42 | DX: M19.011 Primary osteoarthritis, right shoulder (principal); S46.891A Other injury of other muscles, fascia and tendons at shoulder and upper arm level, right arm, initial encounter; X58.XXXA Exposure to other specified factors, initial encounter; Y92.9 Unspecified place or not applicable; M25.411 Effusion, right shoulder; M94.211 Chondromalacia, right shoulder | CPT/HCPCS: 73221 ==

== ENCOUNTER → 2018-05-03 | Outpatient (CLI) | payer MEDICARE ==
[~2018-05-03] MED LIST changes: -ISOVUE-M 300 61% 15ML VIAL (Q9967) As Ordered; +TRIAMCINOLONE ACETONIDE SUSP 40 MG/ML VIAL (J3301) As Ordered
== END ==
LOC: M PAIN 13:00
DX: G89.29 Other chronic pain (principal); M47.816 Spondylosis without myelopathy or radiculopathy, lumbar region; M47.817 Spondylosis without myelopathy or radiculopathy, lumbosacral region; I10 Essential (primary) hypertension; F41.9 Anxiety disorder, unspecified; F32.9 Major depressive disorder, single episode, unspecified; E03.9 Hypothyroidism, unspecified; F10.21 Alcohol dependence, in remission; F17.210 Nicotine dependence, cigarettes, uncomplicated; Z79.899 Other long term (current) drug therapy; Z88.1 Allergy status to other antibiotic agents; Z88.8 Allergy status to other drugs, medicaments and biological substances
CPT/HCPCS: J3301

== ENCOUNTER → 2018-05-17 | Outpatient (CLI) | payer MEDICARE | LOC: M PAIN 10:30 | DX: M47.816 Spondylosis without myelopathy or radiculopathy, lumbar region (principal); M47.817 Spondylosis without myelopathy or radiculopathy, lumbosacral region; I10 Essential (primary) hypertension; F41.9 Anxiety disorder, unspecified; F32.9 Major depressive disorder, single episode, unspecified; E03.9 Hypothyroidism, unspecified; F10.11 Alcohol abuse, in remission; F17.210 Nicotine dependence, cigarettes, uncomplicated; Z79.899 Other long term (current) drug therapy; Z88.1 Allergy status to other antibiotic agents; Z88.8 Allergy status to other drugs, medicaments and biological substances | CPT/HCPCS: G0463 ==

== ENCOUNTER → 2018-05-18 | Outpatient (CLI) | payer MEDICARE | LOC: M LRY 12:19 | DX: M13.0 Polyarthritis, unspecified (principal) ==

== ENCOUNTER → 2018-05-18 | Outpatient (CLI) | payer MEDICARE | LOC: M LRY 11:43 | DX: M19.041 Primary osteoarthritis, right hand (principal); M25.741 Osteophyte, right hand; M18.12 Unilateral primary osteoarthritis of first carpometacarpal joint, left hand; M25.742 Osteophyte, left hand; M25.775 Osteophyte, left foot | CPT/HCPCS: 73130; G0463 ==

== ENCOUNTER → 2018-05-19 | Outpatient (CLI) | payer MEDICARE | LOC: M LRY 11:49 | DX: M13.0 Polyarthritis, unspecified (principal) | CPT/HCPCS: 73600 ==

== ENCOUNTER → 2018-06-09 | Outpatient (CLI) | payer MEDICARE ==
[~2018-06-09] MED LIST changes: +ISOVUE-M 300 61% 15ML VIAL (Q9967) As Ordered; -TRIAMCINOLONE ACETONIDE SUSP 40 MG/ML VIAL (J3301) As Ordered
== END ==
LOC: M PAIN 08:30
DX: G89.29 Other chronic pain (principal); M47.816 Spondylosis without myelopathy or radiculopathy, lumbar region; M47.817 Spondylosis without myelopathy or radiculopathy, lumbosacral region; I10 Essential (primary) hypertension; E03.9 Hypothyroidism, unspecified; F41.9 Anxiety disorder, unspecified; F32.9 Major depressive disorder, single episode, unspecified; F10.21 Alcohol dependence, in remission; F17.210 Nicotine dependence, cigarettes, uncomplicated; Z79.899 Other long term (current) drug therapy; Z88.1 Allergy status to other antibiotic agents; Z88.8 Allergy status to other drugs, medicaments and biological substances
CPT/HCPCS: Q9967

== ENCOUNTER → 2018-06-16 | Outpatient (REF) | payer MEDICARE ==
[2018-06-16 18:28] LABS: ALBUMIN 3.9 GM/DL (3.2-5.2); ALBUMIN/GLOBULIN RATIO 1.26 (1.00-1.93); ALKALINE PHOSPHATASE 80 U/L (45-117); ALT/SGPT 25 U/L (12-78); ANION GAP 7 MEQ/L (8-16); AST/SGOT 16 U/L (7-37); BILIRUBIN,TOTAL 0.2 MG/DL (0.2-1.0); BLOOD UREA NITROGEN 9 MG/DL (7-18); CALCIUM LEVEL 9.7 MG/DL (8.8-10.2); CARBON DIOXIDE LEVEL 30 MEQ/L (21-32); CHLORIDE LEVEL 102 MEQ/L (98-107); CHOLESTEROL LEVEL 202 MG/DL (<200); CHOLESTEROL RISK RATIO 3.811 (<5); CREATININE FOR GFR 0.72 MG/DL (0.55-1.30); GLOMERULAR FILTRATION RATE > 60.0 (>45); GLUCOSE, FASTING 79 MG/DL (70-100); HDL CHOLESTEROL 53 MG/DL (>40); LDL CHOLESTEROL 118 MG/DL (<100); NON-HDL-C 149 MG/DL; SODIUM LEVEL 139 MEQ/L (136-145); TRIGLYCERIDES LEVEL 154 MG/DL (<150)
[2018-06-16 18:29] LABS: BASO # 0.1 10^3/uL (0.0-0.2); BASO % 1.2 % (0.0-1.0); EOS # 0.2 10^3/uL (0.0-0.50); EOS % 2.6 % (0.0-3.0); HEMATOCRIT 39.7 % (36.0-47.0); IMMATURE GRANULOCYTE % 0.2 % (0-3.0); LYMPH # 1.7 10^3/uL (1.5-4.5); LYMPH % 26.9 % (24.0-44.0); MEAN CORPUSCULAR HEMOGLOBIN 33.2 pg (27.0-33.0); MEAN CORPUSCULAR HGB CONC 32.7 g/dl (32.0-36.5); MEAN CORPUSCULAR VOLUME 101.3 fl (80.0-96.0); MONO # 0.5 10^3/uL (0.0-0.8); MONO % 8.4 % (0.0-5.0); NEUTROPHILS # 3.9 10^3/uL (1.8-7.7); NEUTROPHILS % 60.7 % (36.0-66.0); PLATELET COUNT, AUTOMATED 373 10^3/uL (150-450); RED BLOOD COUNT 3.92 10^6/uL (4.00-5.40); RED CELL DISTRIBUTION WIDTH 13.7 % (11.5-14.5); WHITE BLOOD COUNT 6.5 10^3/uL (4.0-10.0)
[2018-06-16 18:45] LABS: ESTIMATED AVERAGE GLUCOSE 128 MG/DL (60-110); HEMOGLOBIN A1c 6.1 %
[2018-06-16 18:46] LABS: CREATININE, URINE 75.2 MG/DL; MALB URINE SIEMENS 6.4 MG/L
[2018-06-16 18:55] LABS: MAU/CREAT RATIO 8.5 MCG/MG (0.0-30.0)
[2018-06-22 14:20] LABS: HLA-B27 Negative (.)
== END ==
LOC: M SFHCLERA 11:13
DX: M54.41 Lumbago with sciatica, right side (principal); M81.0 Age-related osteoporosis without current pathological fracture; M13.0 Polyarthritis, unspecified; Z79.899 Other long term (current) drug therapy
CPT/HCPCS: 84443

== ENCOUNTER → 2018-07-01 | Outpatient (CLI) | payer MEDICARE | LOC: M LRY 10:37 | DX: R05 Cough (principal); R06.2 Wheezing | CPT/HCPCS: 71046; G0463 ==

== ENCOUNTER → 2018-07-05 | Outpatient (CLI) | payer MEDICARE | LOC: M PAIN 09:15 | DX: M47.816 Spondylosis without myelopathy or radiculopathy, lumbar region (principal); M47.817 Spondylosis without myelopathy or radiculopathy, lumbosacral region; F41.9 Anxiety disorder, unspecified; F32.9 Major depressive disorder, single episode, unspecified; E03.9 Hypothyroidism, unspecified; F10.21 Alcohol dependence, in remission; F17.210 Nicotine dependence, cigarettes, uncomplicated; Z79.899 Other long term (current) drug therapy; Z88.1 Allergy status to other antibiotic agents; Z88.8 Allergy status to other drugs, medicaments and biological substances; Z86.79 Personal history of other diseases of the circulatory system | CPT/HCPCS: G0463 ==

== ENCOUNTER → 2018-08-02 | Outpatient (CLI) | payer MEDICARE ==
[~2018-08-02] MED LIST changes: -ISOVUE-M 300 61% 15ML VIAL (Q9967) As Ordered; +TRIAMCINOLONE ACETONIDE SUSP 40 MG/ML VIAL (J3301) As Ordered
== END ==
LOC: M PAIN 13:00
DX: G89.29 Other chronic pain (principal); M47.816 Spondylosis without myelopathy or radiculopathy, lumbar region; M47.817 Spondylosis without myelopathy or radiculopathy, lumbosacral region; I10 Essential (primary) hypertension; F41.9 Anxiety disorder, unspecified; F32.9 Major depressive disorder, single episode, unspecified; E03.9 Hypothyroidism, unspecified; F10.21 Alcohol dependence, in remission; Z79.899 Other long term (current) drug therapy; Z88.1 Allergy status to other antibiotic agents; Z88.8 Allergy status to other drugs, medicaments and biological substances
CPT/HCPCS: J3301

== ENCOUNTER → 2018-08-22 | Outpatient (CLI) | payer MEDICARE | LOC: M PAIN 10:00 | DX: M47.816 Spondylosis without myelopathy or radiculopathy, lumbar region (principal); E03.9 Hypothyroidism, unspecified; I10 Essential (primary) hypertension; F41.9 Anxiety disorder, unspecified; F32.9 Major depressive disorder, single episode, unspecified; F10.21 Alcohol dependence, in remission; F17.210 Nicotine dependence, cigarettes, uncomplicated; Z79.899 Other long term (current) drug therapy; Z88.1 Allergy status to other antibiotic agents; Z88.8 Allergy status to other drugs, medicaments and biological substances | CPT/HCPCS: G0463 ==

== ENCOUNTER 2018-09-05 07:32 | Emergency (ER) | payer MEDICARE | END 2018-09-05 08:57 | disposition home or self-care (01) | LOC: M ED 07:32 | DX: M25.712 Osteophyte, left shoulder (principal); M85.80 Other specified disorders of bone density and structure, unspecified site; I10 Essential (primary) hypertension; E78.5 Hyperlipidemia, unspecified; E03.9 Hypothyroidism, unspecified; F41.9 Anxiety disorder, unspecified; F33.9 Major depressive disorder, recurrent, unspecified; Z79.890 Hormone replacement therapy; Z79.899 Other long term (current) drug therapy; Z88.0 Allergy status to penicillin; Z88.8 Allergy status to other drugs, medicaments and biological substances | CPT/HCPCS: 73030 ==

== ENCOUNTER → 2018-09-28 | Outpatient (CLI) | payer MEDICARE ==
[~2018-09-28] MED LIST changes: +AMLO10TA5 PO; +BAYE81TA7 PO; -BUPIVACAINE HCL 0.25% 30 ML VIAL As Ordered; +CALC1TAB21 PO; +CARV12.5 PO; +CIPR500T3 PO; +CLON-412 PO; +CLON0.5T8 PO; +CLON1TAB8 PO; +FOLI1TAB11 PO; +HYDR50TA70 PO; +LEVO25TA5 PO; -LIDOCAINE 1% SDV INJ 30 ML VIAL As Ordered; +LISI40TA PO; +MORP15TA2 PO; +MULTCAP8 PO; +STOO100C PO; +TRAM-533 PO; -TRIAMCINOLONE ACETONIDE SUSP 40 MG/ML VIAL (J3301) As Ordered; +TYLE650T35 PO; +VENL150C43 PO; +VENL150T PO; +VENL1TAB35 PO; +VITA-182 PO; +VITA100L PO; +ZETI10TA30 PO
--- NOTE | 2018-09-28 12:38 | REP ---
Chest two views HISTORY: Cough Comparison: 07/01/2018 Linear density is present in the right lower lobe consistent with atelectasis or scar. The left lung is clear. The heart is normal in size. The pulmonary vasculature is normal in appearance. The bony structure is intact. IMPRESSION: Right lower lobe atelectasis or scar. Electronically Signed by Serafin Lawson MD 09/28/2018 12:30 P
== END ==
LOC: M LRY 11:11
PROVIDERS: ATTEND Nurse Practitioner Family
DX: J98.4 Other disorders of lung (principal); R05 Cough
CPT/HCPCS: 71046; G0463

== ENCOUNTER → 2018-10-31 | Outpatient (CLI) | payer MEDICARE ==
--- NOTE | 2018-11-07 23:51 | ECWPNPC ---
PATIENT NAME: FRED MICHELLE : 1950 GENDER: FEMALE VISIT DATE: 10/31/2018 DISCHARGE DATE: 10/31/18932 VISIT LOCKED DATE TIME: PHYSICIAN: TESS FORREST RESOURCE: TESS FORREST REASON FOR APPOINTMENT 1. 6-8 WEEK F/U HISTORY OF PRESENT ILLNESS HISTORY OF PRESENT ILLNESS: HERE FOR F/U OF CHRONIC LOW BACK PAIN.HAS INTERMITTENT BILATERAL POSTERIOR THIGH PAIN.TAKING TWO TRAMADOL 3X DAY.RATING PAIN VAS 8/10. PAIN THE PATIENT DESCRIBES THE PAIN... FALL RISK SCREENING: SCREENING :NO FALLS IN THE PAST YEAR CURRENT MEDICATIONS TAKING VITAMIN D3 1000 UNIT CAPSULE 1 CAPSULE ORALLY BID TAKING CALCIUM + D3 600-200 MG-UNIT TABLET 1 TAB ORALLY BID TAKING MULTI FOR HER - TABLET 1 TAB ORALLY DAILY TAKING COLACE 100 MG CAPSULE 1 CAPSULE NEEDED ORALLY DAILY, NOTES: TAKES NIGHTLY TAKING EZETIMIBE 10 MG TABLET 1 TABLET ORALLY ONCE A DAY TAKING CARVEDILOL 12.5 MG TABLET 1 TAB ORALLY TWICE A DAY TAKING LISINOPRIL 40 MG TABLET 1 TABLET ORALLY ONCE A DAY TAKING PROAIR HFA 108 (90 BASE) MCG/ACT AEROSOL SOLUTION 2 PUFFS NEEDED INHALATION EVERY 4-6 HRS TAKING AMLODIPINE BESYLATE 10 MG TABLET 1 TABLET ORALLY ONCE A DAY TAKING TRAMADOL HCL 50 MG TABLET 1 -2 TABLET NEEDED ORALLY EVERY 6 HRS PRN PAIN MDD=6 TAKING WRIST BRACE - MISCELLANEOUS DIRECTED , NOTES: DISPENSE 1 CARPAL TUNNEL WRIST SUPPORT BRACE, WEAR MUCH TOLERATED, SIZE SMALL, RIGHT.DX: G56.01, PROG: GUARDED, ALPESH: 1 YEAR TAKING TENNIS ELBOW STRAP - MISCELLANEOUS DIRECTED , NOTES: DISPENSE 1 RIGHT SIDED TENNIS ELBOW SUPPORT STRAP, WEAR MUCH TOLERATED, SIZE SMALL, RIGHT.DX: M77.8, PROG: GUARDED, ALPESH: 1 YEAR TAKING LEVOTHYROXINE SODIUM 25 MCG TABLET 1 TABLET ON AN EMPTY STOMACH IN THE MORNING ORALLY ONCE A DAY TAKING ZETIA 10MG TABLET TAKE 1 TABLET DAILY TAKING VENLAFAXINE HCL 100 MG TABLET 1.5 TABLET WITH FOOD ORALLY BID, NOTES: STOP EXTENDED RELEASE, SWITCH TO BID VENLAFAXINE AT INCREASED DOSE TAKING CLONAZEPAM 1 MG TABLET 1 TAB ORALLY BID TAKING CYCLOBENZAPRINE HCL 5 MG TABLET 1 TABLET NEEDED ORALLY THREE TIMES A DAY, NOTES: TAKES 1/2 TAB BEFORE BED NOT-TAKING GUAIFENESIN 400 MG TABLET 1 TABLET NEEDED ORALLY EVERY 4 HRS NOT-TAKING DOXYCYCLINE MONOHYDRATE 100 MG CAPSULE 1 CAPSULE ORALLY BID, NOTES: PLEASE DELIVER MEDICATION TO PATIENT NOT-TAKING MORPHINE SULFATE 15 MG TABLET 1 TABLET NEEDED ORALLY Q 6-8 HRS PRN PQIN MDD=3 NOT-TAKING DOXYCYCLINE HYCLATE 100 MG CAPSULE 1 CAPSULE ORALLY TWICE A DAY NOT-TAKING OXYCODONE-ACETAMINOPHEN 5-325 MG TABLET 1 TABLET NEEDED ORALLY EVERY 6 HRS PRN PAIN MDD=4 X 15 DAYS MDD=4 NOT-TAKING EAR WAX DROPS 6.5 % SOLUTION 5 DROPS INTO AFFECTED EAR OTIC TWICE A DAY, NOTES: NOT LATELY NOT-TAKING CIPRO 500 MG TABLET 1 TABLET ORALLY TWICE A DAY NOT-TAKING HYDROXYZINE HCL 25 MG TABLET 1 TABLET NEEDED ORALLY AT BEDTIME NOT-TAKING PYRIDIUM 200 MG TABLET 1 TABLET AFTER MEALS ORALLY THREE TIMES A DAY DISCONTINUED LISINOPRIL 40MG TABLET TAKE 1 TABLET DAILY , NOTES: DUPLICATE DISCONTINUED NICORETTE MINI 2 MG LOZENGE 1 LOZENGE NEEDED MOUTH/THROAT 20 TIME(S) A DAY DISCONTINUED AZITHROMYCIN (5 DAY) 250 MG TABLET DIRECTED ORALLY 2 PILLS ON DAY 1, THEN 1 PILL DAILY UNTIL GONE MEDICATION LIST REVIEWED AND RECONCILED WITH THE PATIENT PAST MEDICAL HISTORY HTN (ETT 06/11 NEG) ANXIETY DEPRESSION HYPOTHYROID WITH 2 SMALL CYSTS HX OF C.DIFF TOBACCO ABUSE ETOH ABUSE IN REMISSION ALLERGIES STATINS (FOR ALLERGY USE ONLY): ACHY, PAINFUL MUSCLES: ALLERGY MAGNESIUM: DIARRHEA: ALLERGY TRAZODONE HCL: MUSCLE ACHES: ALLERGY CYMBALTA: SEVERE STOMACH ACHE: SIDE EFFECTS PROZAC: NAUSEA/VOMITING: ALLERGY AUGMENTIN: DIARRHEA: SIDE EFFECTS SURGICAL HISTORY TONSILLECTOMY TUBAL LIGATION HYSTERECTOMY COLONOSCOPY/ENDOSCOPY TURBT 05/18/17 FAMILY HISTORY FATHER: , DIAGNOSED WITH CANCER MOTHER: , DIAGNOSED WITH HEART DISEASE, OTHER PATERNAL GRAND FATHER: , DIAGNOSED WITH CANCER PATERNAL GRAND MOTHER: , DIAGNOSED WITH CANCER MATERNAL GRAND FATHER: , DIAGNOSED WITH HEART DISEASE MATERNAL GRAND MOTHER: , DIAGNOSED WITH CANCER 1 BROTHER(S) , 1 SISTER(S) . 1 SON(S) , 1 DAUGHTER(S) - HEALTHY. FATHER: SPINE CAMOTHER: ALZHEIMERSPATERNAL GF: BRAIN AND LUNG CAPATERNAL GM: COLON CAMATERNAL GM: CA UNKNOWNSISTER: ARTHRITISBROTHER: BRAIN AND LUNG CA. SOCIAL HISTORY GENERAL: TOBACCO USE ARE YOU A:CURRENT SMOKER ARE YOU INTERESTED IN QUITTING?NOT READY TO QUIT HAS PAMPHLETS AND OTHER MATERIAL AT HOME HOW MANY CIGARETTES A DAY DO YOU SMOKE?6-10 HOW SOON AFTER YOU WAKE UP DO YOU SMOKE YOUR FIRST CIGARETTE?6-30 MIN HOW OFTEN DO YOU SMOKE CIGARETTES?EVERY DAY PATIENT COUNSELED ON THE DANGERS OF TOBACCO USE AND URGED TO QUIT:08/22/2018 NOT READY TO QUIT ALCOHOL SCREENING DID YOU HAVE A DRINK CONTAINING ALCOHOL IN THE PAST YEAR?NO POINTS0 INTERPRETATIONNEGATIVE RECREATIONAL DRUG USE DRUG USE?NO CAFFEINE CAFFEINE USE?NO SEXUAL HX HAD SEX IN THE LAST 12 MONTHS (VAGINAL, ORAL, OR ANAL)?NO HAVE YOU EVER HAD AN STD?NO HIV / HEP-C SCREENING HIV TEST OFFERED TO PATIENT:YES DATE OFFERED:09/12/2018 TEST ACCEPTED:NO REASON:PATIENT DECLINED BROCHURE PROVIDED TO PATIENTYES HEP-C TEST OFFERED TO PATIENT:YES DATE OFFERED:09/12/2018 TEST ACCEPTED:NO REASON:PATIENT DECLINED BUDDHISM [id number] TENRIISM LANGUAGE LANGUAGES SPOKEN:NEPALI EDUCATION LEVEL OF EDUCATION:NOT FINISHED COLLEGE LEARNING BARRIERS / SPECIAL NEEDS CHANGE FROM LAST VISIT?NO BARRIERS TO LEARNING?NO HEARING IMPAIRED?NO VISION IMPAIRED?YES :CORRECTIVE LENSES GLASSES COGNITIVELY IMPAIRED?NO READINESS TO LEARN?YES LEARNING PREFERENCES?NO LEARNING CAPABILITIES PRESENT?YES EMOTIONAL BARRIERS?NO SPECIAL DEVICES?NO RN COMMUNITY NEEDED?NO DOMESTIC VIOLENCE DO YOU FEEL SAFE IN YOUR ENVIRONMENT?YES OCCUPATION: RETIRED. DIET: REGULAR. EXERCISE: WALKS, SWIMS. MARITAL STATUS: . OTHERS AT HOME: NONE. PAIN CLINIC PFS, CLERGY, PUBLIC HEALTH REFERRALS PFS REFERRAL NEEDED?NO CLERGY REFERRAL NEEDED?NO PUBLIC HEALTH REFERRAL NEEDED?NO HAS THE PATIENT BEEN EDUCATED REGARDING HIS/HER PLAN OF CARE?YES HAS THE PATIENT BEEN EDUCATED REGARDING PAIN, THE RISK FOR PAIN, THE IMPORTANCE OF EFFECTIVE PAIN MANAGEMENT, AND THE PAIN ASSESSMENT PROCESS?YES ADVANCE DIRECTIVE ADVANCE DIRECTIVE DISCUSSED WITH PATIENT:YES DISCUSSED THORUOGHLY AND GAVE INFO / OFFERED HELP TO FILL OUT, PT DECLINES INFO AT THIS TIME. 10/31/18 BV REVIEWED 08/22/18 NLREVIEWED WTIH PT 10/31/18 0905 BV. HOSPITALIZATION/MAJOR DIAGNOSTIC PROCEDURE SEE SURGERIES FRACTURED PELVIS CHILDBIRTH REVIEW OF SYSTEMS REVIEWED BY: PROVIDER: TESS FORREST TOOL AND DIE SUPERVISOR . CONSTITUTIONAL: ANY CHANGE IN YOUR MEDICAL CONDITION? YES, PT HAD PNEUMONIA AROUND ROGER. STATES SHE STILL FEELS NOT 100%. STATES SHE HAS BEEN SEEING PRIMARY DOCTOR REGARDING THIS. . CHILLS NO . FEVER NO . INFECTION: DO YOU HAVE NEW INFECTIONS? NO . DO YOU HAVE HISTORY OF MRSA? NO . MUSCULOSKELETAL: ANY NEW PATTERNS OF PAIN OR NUMBNESS? NO . GASTROENTEROLOGY: ANY NEW CHANGE IN BOWEL CONTROL? NO . GENITOURINARY: ANY NEW CHANGE IN BLADDER CONTROL? NO . IS THERE A CHANCE YOU COULD BE ? NO . HEMATOLOGY/LYMPH: DO YOU TAKE ANY BLOOD THINNERS? (FOR EXAMPLE- COUMADIN, PLAVIX, AGGRENOX, PLATEL, PRADAXA, OR XARELTO) NO . WHEN WAS YOUR LAST DOSE? DATE: TIME: . NEUROLOGY: HAVE YOU FALLEN IN THE PAST 12 MONTHS? YES, PT STATES SHE HAD 3 FALLS DUE TO ICE OR TRIPPING ON THINGS IN THE PAST COUPLE MONTHS. DENIES ANY INJURIES OR ED VISIT WITH EITHER FALL. . ANY NEW EXTREMITY NUMBNESS OR WEAKNESS? NO . CARDIOLOGY: DO YOU HAVE A PACEMAKER OR DEFIBRILLATOR? NO . RESPIRATORY: HAVE YOU BEEN SICK IN THE PAST WEEK? NO . FEVER NO . FLU LIKE SYMPTOMS? NO . COUGH NO . INTEGUMENTARY: DO YOU HAVE ANY RASHES OR OPEN SORES? NO . ALLERGIC/IMMUNO: ARE YOU ALLERGIC TO IV DYE? NO . ANY NEW ALLERGIES? NO . PSYCHIATRIC: DO YOU HAVE THOUGHTS OF HURTING YOURSELF OR SOMEONE ELSE? NO . ARE YOU ABUSED, NEGLECTED, OR IN AN UNSAFE ENVIRONMENT? NO . ENDOCRINOLOGY: ARE YOU DIABETIC? NO . OTHER: DO YOU NEED ANY PRESCRIPTIONS? YES, TRAMADOL . IF YES, PLEASE LIST: ____ . ANY NEW PROBLEMS WITH YOUR MEDICATIONS? NO . WHEN DID YOU LAST EAT? ____ . WHEN DID YOU LAST DRINK? ____ . WHAT DID YOU LAST DRINK? ____ . NAME OF PERSON DRIVING YOU HOME? ____ . DO YOU HAVE ANY OTHER QUESTIONS OR CONCERNS NO . VITAL SIGNS WT 162.4 LBS, HT 62.5 IN, BMI 29.23 INDEX, BP 124/72 MM HG, HR 83 /MIN, RR 18 /MIN, TEMP 97.4 F, OXYGEN SAT % 95%, SAFE IN ENV? (Y/N) YES, REVIEWED BY: BV. EXAMINATION GENERAL EXAMINATION: GENERAL APPEARANCE:AWAKE,ALERT ,PLEAASANT . PSYCHAFFECT NORMAL . LUNGS:LUNG CERON ARE CLEAR TO AUSCULTATION BILATERALLY. GOOD MOVEMENT OF AIR . HEART:S1, S2 IN A REGULAR RATE AND RHYTHM. NO SIGNIFICANT MURMURS, RUBS OR GALLOPS NOTED . LUMBAR SACRAL SPINEMILD TENDERNESS NOTED OVER LUMBOSACRAL PARASPINAL. ASSESSMENTS SPONDYLOSIS OF LUMBAR REGION WITHOUT MYELOPATHY OR RADICULOPATHY - M47.816 (PRIMARY) TREATMENT SPONDYLOSIS OF LUMBAR REGION WITHOUT MYELOPATHY OR RADICULOPATHY REFILL TRAMADOL HCL TABLET, 50 MG, 1 -2 TABLET NEEDED, ORALLY, EVERY 6 HRS PRN PAIN MDD=6, 30 DAY(S), 180, REFILLS 2 STOP CYCLOBENZAPRINE HCL TABLET, 5 MG, 1 TABLET NEEDED, ORALLY, THREE TIMES A DAY, NOTES: TAKES 1/2 TAB BEFORE BED PROCEDURE CODES FA211 ESTABILISHED PATIENT [facility] CHARGE DISPOSITION & COMMUNICATION FOLLOW UP 4-6WKS ELECTRONICALLY SIGNED BY YULISA FAJARDO ON 11/07/2018 AT 04:39 PM EST DISCLAIMER : THIS IS A VISIT SUMMARY EXTRACTED FROM THE [employer] CHART. IT IS NOT A COPY OF THE [employer] PROGRESS NOTE. TRACEY
== END ==
LOC: M PAIN 08:30
PROVIDERS: ATTEND Nurse Practitioner Family
DX: M47.816 Spondylosis without myelopathy or radiculopathy, lumbar region (principal); I10 Essential (primary) hypertension; F41.9 Anxiety disorder, unspecified; F32.9 Major depressive disorder, single episode, unspecified; E03.9 Hypothyroidism, unspecified; F17.210 Nicotine dependence, cigarettes, uncomplicated; F10.11 Alcohol abuse, in remission; Z79.899 Other long term (current) drug therapy; Z88.1 Allergy status to other antibiotic agents; Z88.8 Allergy status to other drugs, medicaments and biological substances

== ENCOUNTER → 2018-11-03 | Outpatient (CLI) | payer MEDICARE ==
--- NOTE | 2018-11-03 12:14 | REP ---
Chest two views HISTORY: Cough Comparison: 09/28/2018 The lungs are clear. The heart is normal in size. The pulmonary vasculature is normal in appearance. The bony structure is intact. IMPRESSION: No acute disease. Electronically Signed by Serafin Lawson MD 11/03/2018 12:06 P
== END ==
LOC: M LRY 11:30
PROVIDERS: ATTEND Family Medicine
DX: R05 Cough (principal)
CPT/HCPCS: 71046; 80048; 85025; G0463

== ENCOUNTER → 2018-11-03 | Outpatient (REF) | payer MEDICARE ==
[2018-11-03 18:00] LABS: BASO # 0.1 10^3/uL (0.0-0.2); BASO % 1.1 % (0.0-1.0); EOS # 0.3 10^3/uL (0.0-0.50); EOS % 4.3 % (0.0-3.0); HEMATOCRIT 39.1 % (36.0-47.0); LYMPH # 1.9 10^3/uL (1.5-4.5); LYMPH % 27.8 % (24.0-44.0); MEAN CORPUSCULAR HEMOGLOBIN 34.2 pg (27.0-33.0); MEAN CORPUSCULAR HGB CONC 33.2 g/dl (32.0-36.5); MEAN CORPUSCULAR VOLUME 102.9 fl (80.0-96.0); MONO # 0.7 10^3/uL (0.0-0.8); MONO % 9.6 % (0.0-5.0); NEUTROPHILS % 56.9 % (36.0-66.0); PLATELET COUNT, AUTOMATED 330 10^3/uL (150-450)
[2018-11-03 18:07] LABS: BLOOD UREA NITROGEN 6 MG/DL (7-18); CALCIUM LEVEL 9.6 MG/DL (8.8-10.2); CARBON DIOXIDE LEVEL 32 MEQ/L (21-32); CHLORIDE LEVEL 103 MEQ/L (98-107); GLOMERULAR FILTRATION RATE > 60.0 (>45); GLUCOSE, FASTING 94 MG/DL (70-100); POTASSIUM SERUM 4.2 MEQ/L (3.5-5.1); SODIUM LEVEL 140 MEQ/L (136-145)
== END ==
LOC: M SFHCLERA 11:10
PROVIDERS: ATTEND Family Medicine
DX: R05 Cough (principal)

== ENCOUNTER → 2018-11-11 | Outpatient (CLI) | payer MEDICARE ==
--- NOTE | 2018-11-11 11:40 | REP ---
Thyroid ultrasound for thyroid nodules: A comparison is 10/21/2016. The thyroid right lobe measures 4.5 x 1.3 x 1.5 cm. The thyroid left lobe measures 3.3 x 1.2 x 1.2 cm. The isthmus measures 3 mm thickness. The thyroid is normal size. There is a small nodule in the right lobe upper pole measuring 5 x 4 x 6 mm. There is a small solid nodule in the left lobe measuring 4 x 5 x 3 mm. The thyroid parenchyma is otherwise homogeneous. Impression: There is a small nodule in each thyroid lobe. Otherwise, negative thyroid ultrasound. No significant interval change. Electronically Signed by Larry Pagan MD 11/11/2018 11:31 A
== END ==
LOC: M LRY 09:05
PROVIDERS: ATTEND Family Medicine
DX: E04.1 Nontoxic single thyroid nodule (principal)

== ENCOUNTER → 2018-12-05 | Outpatient (CLI) | payer MEDICARE ==
--- NOTE | 2018-12-05 12:36 | REP ---
RIGHT HIP, TWO VIEWS: HISTORY: Hip pain. There is no acute fracture or dislocation. There is minimal narrowing of the joint space with associated sclerosis. IMPRESSION: Degenerative change as described above. Electronically Signed by Serafin Lawson MD 12/05/2018 12:44 P
== END ==
LOC: M LRY 11:26
PROVIDERS: ATTEND Family Medicine
DX: M25.551 Pain in right hip (principal)
CPT/HCPCS: 73502; G0463

== ENCOUNTER → 2018-12-12 | Outpatient (CLI) | payer MEDICARE ==
--- NOTE | 2018-12-28 01:51 | ECWPNPC ---
PATIENT NAME: FRED MICHELLE : 1950 GENDER: FEMALE VISIT DATE: 12/12/2018 DISCHARGE DATE: 12/12/18 1634 VISIT LOCKED DATE TIME: PHYSICIAN: TESS FORREST RESOURCE: TESS FORREST REASON FOR APPOINTMENT 1. 4-6 WEEKS HISTORY OF PRESENT ILLNESS HISTORY OF PRESENT ILLNESS: HERE FOR F/U OF CHRONIC LOW BACK PAIN.HAS HAD A SEVERE INCREASE IN LOW BACK PAIN WITH NEW ONSET OF BILATERAL LEG NUMBNESS AND WEAKNESS.SHE IS CRYING TODAY AND IS STATING HER PAIN IS OUT OF CONTROL.RATING PAIN VAS 8/10. PAIN THE PATIENT DESCRIBES THE PAIN... FALL RISK SCREENING: SCREENING : NO FALLS IN THE PAST YEAR. CURRENT MEDICATIONS TAKING VITAMIN D3 1000 UNIT CAPSULE 1 CAPSULE ORALLY BID TAKING CALCIUM + D3 600-200 MG-UNIT TABLET 1 TAB ORALLY BID TAKING MULTI FOR HER - TABLET 1 TAB ORALLY DAILY TAKING COLACE 100 MG CAPSULE 1 CAPSULE NEEDED ORALLY DAILY, NOTES: TAKES NIGHTLY TAKING EZETIMIBE 10 MG TABLET 1 TABLET ORALLY ONCE A DAY TAKING PROAIR HFA 108 (90 BASE) MCG/ACT AEROSOL SOLUTION 2 PUFFS NEEDED INHALATION EVERY 4-6 HRS TAKING AMLODIPINE BESYLATE 10 MG TABLET 1 TABLET ORALLY ONCE A DAY TAKING WRIST BRACE - MISCELLANEOUS DIRECTED , NOTES: DISPENSE 1 CARPAL TUNNEL WRIST SUPPORT BRACE, WEAR MUCH TOLERATED, SIZE SMALL, RIGHT.DX: G56.01, PROG: GUARDED, ALPESH: 1 YEAR TAKING LEVOTHYROXINE SODIUM 25 MCG TABLET 1 TABLET ON AN EMPTY STOMACH IN THE MORNING ORALLY ONCE A DAY TAKING ZETIA 10MG TABLET TAKE 1 TABLET DAILY TAKING TRAMADOL HCL 50 MG TABLET 1 -2 TABLET NEEDED ORALLY EVERY 6 HRS PRN PAIN MDD=6 TAKING VENLAFAXINE HCL 100 MG TABLET 1.5 TABLET WITH FOOD ORALLY BID TAKING CLONAZEPAM 1 MG TABLET 1 TAB ORALLY BID TAKING CARVEDILOL 12.5 MG TABLET 1 TAB ORALLY TWICE A DAY TAKING LISINOPRIL 20 MG TABLET 1 TABLET ORALLY ONCE A DAY TAKING CYCLOBENZAPRINE HCL 5 MG TABLET 1 TABLET NEEDED ORALLY THREE TIMES A DAY NOT-TAKING TENNIS ELBOW STRAP - MISCELLANEOUS DIRECTED , NOTES: DISPENSE 1 RIGHT SIDED TENNIS ELBOW SUPPORT STRAP, WEAR MUCH TOLERATED, SIZE SMALL, RIGHT.DX: M77.8, PROG: GUARDED, ALPESH: 1 YEAR NOT-TAKING PENICILLIN V POTASSIUM 500 MG TABLET 1 TABLET ORALLY FOUR TIMES A DAY NOT-TAKING BENZONATATE 200 MG CAPSULE 1 CAPSULE ORALLY THREE TIMES A DAY NEEDED FOR COUGH NOT-TAKING GUAIFENESIN 400 MG TABLET 1 TABLET NEEDED ORALLY EVERY 4 HRS NOT-TAKING DOXYCYCLINE MONOHYDRATE 100 MG CAPSULE 1 CAPSULE ORALLY BID, NOTES: PLEASE DELIVER MEDICATION TO PATIENT NOT-TAKING MORPHINE SULFATE 15 MG TABLET 1 TABLET NEEDED ORALLY Q 6-8 HRS PRN PQIN MDD=3 NOT-TAKING DOXYCYCLINE HYCLATE 100 MG CAPSULE 1 CAPSULE ORALLY TWICE A DAY NOT-TAKING OXYCODONE-ACETAMINOPHEN 5-325 MG TABLET 1 TABLET NEEDED ORALLY EVERY 6 HRS PRN PAIN MDD=4 X 15 DAYS MDD=4 NOT-TAKING EAR WAX DROPS 6.5 % SOLUTION 5 DROPS INTO AFFECTED EAR OTIC TWICE A DAY, NOTES: NOT LATELY NOT-TAKING CIPRO 500 MG TABLET 1 TABLET ORALLY TWICE A DAY NOT-TAKING HYDROXYZINE HCL 25 MG TABLET 1 TABLET NEEDED ORALLY AT BEDTIME NOT-TAKING PYRIDIUM 200 MG TABLET 1 TABLET AFTER MEALS ORALLY THREE TIMES A DAY MEDICATION LIST REVIEWED AND RECONCILED WITH THE PATIENT PAST MEDICAL HISTORY HTN (ETT 06/11 NEG), HAS SEEN CARDIOLOGY ANXIETY DEPRESSION HYPOTHYROID WITH 2 SMALL CYSTS HX OF C.DIFF TOBACCO ABUSE ETOH ABUSE IN REMISSION OSTEOPOROSIS ON 2018 DEXA, EVAL'D BY DR. RIOS ENDOCRINOLOGY RECOMMENDED BISPHOSPHANATES THYROID NODULES X 2, SUBCENTIMETER NO HISTORY OF BIOPSY HYPERLIPIDEMIA DYSTHYMIA OSTEOARTHRITIS ALLERGIES STATINS (FOR ALLERGY USE ONLY): ACHY, PAINFUL MUSCLES - ALLERGY MAGNESIUM: DIARRHEA - ALLERGY TRAZODONE HCL: MUSCLE ACHES - ALLERGY CYMBALTA: SEVERE STOMACH ACHE - SIDE EFFECTS PROZAC: NAUSEA/VOMITING - ALLERGY AUGMENTIN: DIARRHEA - SIDE EFFECTS SURGICAL HISTORY TONSILLECTOMY TUBAL LIGATION HYSTERECTOMY COLONOSCOPY/ENDOSCOPY TURBT 05/18/17 FAMILY HISTORY FATHER: , DIAGNOSED WITH CANCER MOTHER: , HEART DISEASE, OTHER PATERNAL GRAND FATHER: , CANCER PATERNAL GRAND MOTHER: , CANCER MATERNAL GRAND FATHER: , HEART DISEASE MATERNAL GRAND MOTHER: , CANCER 1 BROTHER(S) , 1 SISTER(S) . 1 SON(S) , 1 DAUGHTER(S) - HEALTHY. FATHER: SPINE CA\NMOTHER: ALZHEIMERS\NPATERNAL GF: BRAIN AND LUNG CA\NPATERNAL GM: COLON CA\NMATERNAL GM: CA UNKNOWN\NSISTER: ARTHRITIS\NBROTHER: ()BRAIN AND LUNG CA. SOCIAL HISTORY GENERAL: TOBACCO USE ARE YOU A:CURRENT SMOKER ARE YOU INTERESTED IN QUITTING?READY TO QUIT HAS CUT DOWN DRASTICALLY ON #/DAY COUNSELED THE PATIENT ON TOBACCO USE, CESSATION [id number]/18/2019 HOW MANY CIGARETTES A DAY DO YOU SMOKE?5 OR LESS HOW SOON AFTER YOU WAKE UP DO YOU SMOKE YOUR FIRST CIGARETTE?6-30 MIN HOW OFTEN DO YOU SMOKE CIGARETTES?EVERY DAY PATIENT COUNSELED ON THE DANGERS OF TOBACCO USE AND URGED TO QUIT:12/12/2018 LATEX QUESTIONNAIRE LATEX ALLERGY : HAVE YOU EVER DEVELOPED ANY TYPE OF REACTION AFTER HANDLING LATEX PRODUCTS SUCH RUBBER GLOVES, CONDOMS, DIAPHRAGMS, BALLOONS, SOCKS, OR UNDERWEAR?NO LATEX ALLERGY : HAVE YOU EVER DEVELOPED ANY TYPE OF REACTION DURING OR AFTER DENTAL APPOINTMENT, VAGINAL/RECTAL EXAMINATION, SURGICAL PROCEDURE, OR ANY OTHER EXPOSURE?NO LATEX RISK : HAVE YOU EVER HAD ANY DIFFICULTY BREATHING OR HIVES AFTER EATING OR HANDLING ANY FRUITS, OR VEGETABLES; SUCH KIWI, BANANAS, STONE FRUITS, OR CHESTNUTSNO LATEX RISK : DO YOU HAVE A PREVIOUS PERSONAL HISTORY OF MORE THAN NINE SURGERIES, SPINA BIFIDA, OR REPEATED CATHERTIZATIONS? NO LATEX RISK : ARE YOU FREQUENTLY EXPOSED TO LATEX PRODUCTS IN YOUR OCCUPATION?YES DATE ASKED : 12/05/2018 ALCOHOL SCREENING DID YOU HAVE A DRINK CONTAINING ALCOHOL IN THE PAST YEAR?NO POINTS0 INTERPRETATIONNEGATIVE RECREATIONAL DRUG USE DRUG USE?NO CAFFEINE CAFFEINE USE?NO SEXUAL HX HAD SEX IN THE LAST 12 MONTHS (VAGINAL, ORAL, OR ANAL)?NO HAVE YOU EVER HAD AN STD?NO HIV / HEP-C SCREENING HIV TEST OFFERED TO PATIENT:YES DATE OFFERED:09/12/2018 TEST ACCEPTED:NO REASON:PATIENT DECLINED BROCHURE PROVIDED TO PATIENTYES HEP-C TEST OFFERED TO PATIENT:YES DATE OFFERED:09/12/2018 TEST ACCEPTED:NO REASON:PATIENT DECLINED JEHOVAH'S WITNESS [id number] RESTORATION LANGUAGE LANGUAGES SPOKEN:GABONESE EDUCATION LEVEL OF EDUCATION:NOT FINISHED COLLEGE LEARNING BARRIERS / SPECIAL NEEDS CHANGE FROM LAST VISIT?NO BARRIERS TO LEARNING?NO HEARING IMPAIRED?NO VISION IMPAIRED?YES :CORRECTIVE LENSES GLASSES COGNITIVELY IMPAIRED?NO READINESS TO LEARN?YES LEARNING PREFERENCES?NO LEARNING CAPABILITIES PRESENT?YES EMOTIONAL BARRIERS?NO SPECIAL DEVICES?NO DEBURRING TECHNICIAN NEEDED?NO DOMESTIC VIOLENCE DO YOU FEEL SAFE IN YOUR ENVIRONMENT?YES OCCUPATION: RETIRED. DIET: REGULAR. EXERCISE: WALKS, SWIMS. MARITAL STATUS: . OTHERS AT HOME: NONE. PAIN CLINIC PFS, CLERGY, PUBLIC HEALTH REFERRALS PFS REFERRAL NEEDED?NO CLERGY REFERRAL NEEDED?NO PUBLIC HEALTH REFERRAL NEEDED?NO HAS THE PATIENT BEEN EDUCATED REGARDING HIS/HER PLAN OF CARE?YES HAS THE PATIENT BEEN EDUCATED REGARDING PAIN, THE RISK FOR PAIN, THE IMPORTANCE OF EFFECTIVE PAIN MANAGEMENT, AND THE PAIN ASSESSMENT PROCESS?YES ADVANCE DIRECTIVE ADVANCE DIRECTIVE DISCUSSED WITH PATIENT:YES STATES SHE HAS A HCP-WILL BRING THE COPY IN. REVIEWED 08/22/18 NLREVIEWED [facility] PT 10/31/18 0905 BV12/12/18 REVIEWED WITH PT. AD. HOSPITALIZATION/MAJOR DIAGNOSTIC PROCEDURE SEE SURGERIES FRACTURED PELVIS CHILDBIRTH REVIEW OF SYSTEMS REVIEWED BY: PROVIDER: TESS MÁRQUEZ . CONSTITUTIONAL: ANY CHANGE IN YOUR MEDICAL CONDITION? NO . CHILLS NO . FEVER NO . INFECTION: DO YOU HAVE NEW INFECTIONS? NO . DO YOU HAVE HISTORY OF MRSA? NO . MUSCULOSKELETAL: ANY NEW PATTERNS OF PAIN OR NUMBNESS? YES, ELECTRICAL SHOCKS GOING UP THE BACK OF HER LEGS AND FRONT OF HER THIGHS ARE TINGLING, THIS HAS BEEN FOR APPROX 2 MONTHS . GASTROENTEROLOGY: ANY NEW CHANGE IN BOWEL CONTROL? NO . GENITOURINARY: ANY NEW CHANGE IN BLADDER CONTROL? YES, HAVING STRESS INCONTINENCE OR OTHER TIMES SHE IS UNABLE TO GO AND IF SHE DOES IT IS ONLY A SMALL AMOUNT. STATES THIS HAS BEEN GOING ON FOR A WHILE. . IS THERE A CHANCE YOU COULD BE ? NO . HEMATOLOGY/LYMPH: DO YOU TAKE ANY BLOOD THINNERS? (FOR EXAMPLE- COUMADIN, PLAVIX, AGGRENOX, PLATEL, PRADAXA, OR XARELTO) NO . WHEN WAS YOUR LAST DOSE? DATE: TIME: . NEUROLOGY: HAVE YOU FALLEN IN THE PAST 12 MONTHS? YES, 4-5 X IN TH LAST MONTH TO MONTH AND A HALF. ONCE SHE SLIPPED ON ICE OTHER THAN THAT SHE DOESN'T KNOW WHAT HAPPENED . ANY NEW EXTREMITY NUMBNESS OR WEAKNESS? NO . CARDIOLOGY: DO YOU HAVE A PACEMAKER OR DEFIBRILLATOR? NO . RESPIRATORY: HAVE YOU BEEN SICK IN THE PAST WEEK? YES . FEVER NO . FLU LIKE SYMPTOMS? NO . COUGH YES, CONSTANT COUGH SINCE PNEUMONIA IN AUG. OCCASSIONALLY RAISING WHITE TO LIGHT YELLOW MUCUS . INTEGUMENTARY: DO YOU HAVE ANY RASHES OR OPEN SORES? NO . ALLERGIC/IMMUNO: ARE YOU ALLERGIC TO IV DYE? NO . ANY NEW ALLERGIES? NO . PSYCHIATRIC: DO YOU HAVE THOUGHTS OF HURTING YOURSELF OR SOMEONE ELSE? NO . ARE YOU ABUSED, NEGLECTED, OR IN AN UNSAFE ENVIRONMENT? NO . ENDOCRINOLOGY: ARE YOU DIABETIC? NO . OTHER: DO YOU NEED ANY PRESCRIPTIONS? YES . IF YES, PLEASE LIST: CYCLOBENZAPRINE . ANY NEW PROBLEMS WITH YOUR MEDICATIONS? NO . WHEN DID YOU LAST EAT? ____ . WHEN DID YOU LAST DRINK? ____ . WHAT DID YOU LAST DRINK? ____ . NAME OF PERSON DRIVING YOU HOME? ____ . DO YOU HAVE ANY OTHER QUESTIONS OR CONCERNS NO VERY DISCOURAGED DUE TO THE PAIN. STATES SHE IS UNABLE TO DO ANYTHING. FEELS LIKE ELECTRIC SHOCK GOING UP THE BACK OF HER LEGS AND THE FRONT OF HER THIGHS ARE TINGLING. SHE THINKS SHE IS ALSO RETAINING FLUID AND HER LEFT IS ALWAYS COLD . VITAL SIGNS WT 166.6 LBS, HT 62.5 IN, BMI 29.98 INDEX, BP 135/65 MM HG, HR 93 /MIN, RR 18 /MIN, TEMP 97.3 F, OXYGEN SAT % 90%, SAFE IN ENV? (Y/N) Y, NA INITIALS SC 14:55, REVIEWED BY: MAURA. EXAMINATION GENERAL EXAMINATION: GENERAL APPEARANCE:AWAKE,ALERT ,PLEAASANT . PSYCHAFFECT NORMAL . LUNGS:LUNG CERON ARE CLEAR TO AUSCULTATION BILATERALLY. GOOD MOVEMENT OF AIR . HEART:S1, S2 IN A REGULAR RATE AND RHYTHM. NO SIGNIFICANT MURMURS, RUBS OR GALLOPS NOTED . ASSESSMENTS SPONDYLOSIS OF LUMBAR REGION WITHOUT MYELOPATHY OR RADICULOPATHY - M47.816 (PRIMARY) TREATMENT SPONDYLOSIS OF LUMBAR REGION WITHOUT MYELOPATHY OR RADICULOPATHY CONTINUE TRAMADOL HCL TABLET, 50 MG, 1 -2 TABLET NEEDED, ORALLY, EVERY 6 HRS PRN PAIN MDD=6 START GABAPENTIN CAPSULE, 100 MG, 1 CAPSULE, ORALLY, BID, 30 DAY(S), 60 CAPSULE, REFILLS 2 START PERCOCET TABLET, 5-325 MG, 1 TABLET NEEDED, ORALLY, Q8H PRN MDD3, 30 DAY(S), 45, REFILLS 0 NOTES: ISTOP REGISTRY REVIEWED AND DEMONSTRATES COMPLLIANCE., RISKS AND BENEFITS OF NARCOTIC/OPIOD MEDICATIONS WERE REVIEWED WITH PATIENT - THIS INCLUDES BUT IS NOT LIMITED TO RISK OF DEPENDANCE/DEVELOPMENT OF ADDICTION, MOOD DISTURBANCE AND DEPRESSION, OSTEOPOROSIS, HORMONAL AND LABIDAL CHANGES, RESPIRATORY DEPRESSION AND . PATIENT IS ADVISED NOT TO DRIVE OR DRINK ALCOHOL WHILE ON THESE MEDICATIONS. PREVENTIVE MEDICINE PAIN CLINIC TEACHING: MEDICATIONS PRINTED INFORMATION ON GABAPENTIN AND PERCOCET GIVEN TO AND REVIEWED WITH PT AND SHE VERBALIZED UNDERSTANDING. AD. PROCEDURE CODES FA211 ESTABILISHED PATIENT [facility] CHARGE DISPOSITION & COMMUNICATION FOLLOW UP 6 WEEKS ELECTRONICALLY SIGNED BY YULISA FAJARDO ON 12/27/2018 AT 01:02 PM EDT DISCLAIMER : THIS IS A VISIT SUMMARY EXTRACTED FROM THE [email or web address] CHART. IT IS NOT A COPY OF THE [employer] PROGRESS NOTE. TRACEY
== END ==
LOC: M PAIN 14:45
PROVIDERS: ATTEND Nurse Practitioner Family
DX: M47.816 Spondylosis without myelopathy or radiculopathy, lumbar region (principal); G89.29 Other chronic pain; I10 Essential (primary) hypertension; E03.9 Hypothyroidism, unspecified; F41.9 Anxiety disorder, unspecified; F32.9 Major depressive disorder, single episode, unspecified; F10.21 Alcohol dependence, in remission; M81.0 Age-related osteoporosis without current pathological fracture; E78.5 Hyperlipidemia, unspecified; M19.90 Unspecified osteoarthritis, unspecified site; F17.210 Nicotine dependence, cigarettes, uncomplicated; Z79.899 Other long term (current) drug therapy; Z88.1 Allergy status to other antibiotic agents; Z88.8 Allergy status to other drugs, medicaments and biological substances; Z86.19 Personal history of other infectious and parasitic diseases

== ENCOUNTER → 2018-12-15 | Outpatient (REF) | payer MEDICARE ==
[~2018-12-15] MED LIST changes: -VENL150T PO; +VENL150T14 PO
== END ==
LOC: M SMT 14:00
PROVIDERS: ATTEND Nurse Practitioner Women's Health
DX: R39.15 Urgency of urination (principal)
CPT/HCPCS: 51798; 87086; G0463

== ENCOUNTER → 2019-01-05 | Outpatient (REF) | payer MEDICARE ==
[2019-01-05 19:54] LABS: APPEARANCE, URINE TURBID (CLEAR); BACTERIA, URINE AUTO 2+ (NEGATIVE); BILIRUBIN, URINE AUTO NEGATIVE (NEGATIVE); BLOOD, URINE BLOOD 1+ (NEGATIVE); COLOR, URINE YELLOW (YELLOW); GLUCOSE, URINE (UA) AUTO NEGATIVE (NEGATIVE); KETONE, URINE AUTO NEGATIVE (NEGATIVE); LEUKOCYTE ESTERASE, URINE AUTO 3+ (NEGATIVE); NITRITE, URINE AUTO NEGATIVE (NEGATIVE); PROTEIN, URINE AUTO 1+ mg/dL (NEGATIVE); RBC, URINE AUTO 14 /HPF (0-3); SPECIFIC GRAVITY URINE AUTO 1.011 (1.002-1.035); SQUAMOUS EPITHELIAL CELL UR AU 4 /HPF (0-6); TRANSITIONAL EPITHELIAL AUTO 1 /HPF; UROBILINOGEN, URINE AUTO 0.2 mg/dL (0.0-2.0); WBC, URINE AUTO TNTC /HPF (0-3)
== END ==
LOC: M SMT 17:09
PROVIDERS: ATTEND Nurse Practitioner Women's Health
DX: R39.198 Other difficulties with micturition (principal)
CPT/HCPCS: 81001; 87088; 87186; G0463

== ENCOUNTER → 2019-01-24 | Outpatient (CLI) | payer MEDICARE ==
--- NOTE | 2019-02-09 00:35 | ECWPNPC ---
PATIENT NAME: FRED MICHELLE : 1950 GENDER: FEMALE VISIT DATE: 01/24/2019 DISCHARGE DATE: 01/24/19 1154 VISIT LOCKED DATE TIME: PHYSICIAN: TESS FORREST RESOURCE: TESS FORREST REASON FOR APPOINTMENT 1. 6 WEEKS HISTORY OF PRESENT ILLNESS HISTORY OF PRESENT ILLNESS: HERE FOR F/U OF CHRONIC LOW BACK PAIN.RATING PAIN VAS 5/10.COMPLAINING OF ACHING PAIN IN LOW BACK. PAIN THE PATIENT DESCRIBES THE PAIN... FALL RISK SCREENING: SCREENING :NO FALLS REPORTED IN THE LAST YEAR CURRENT MEDICATIONS TAKING VITAMIN D3 1000 UNIT CAPSULE 1 CAPSULE ORALLY BID TAKING CALCIUM + D3 600-200 MG-UNIT TABLET 1 TAB ORALLY BID TAKING MULTI FOR HER - TABLET 1 TAB ORALLY DAILY TAKING PROAIR HFA 108 (90 BASE) MCG/ACT AEROSOL SOLUTION 2 PUFFS NEEDED INHALATION EVERY 4-6 HRS TAKING AMLODIPINE BESYLATE 10 MG TABLET 1 TABLET ORALLY ONCE A DAY TAKING LEVOTHYROXINE SODIUM 25 MCG TABLET 1 TABLET ON AN EMPTY STOMACH IN THE MORNING ORALLY ONCE A DAY TAKING VENLAFAXINE HCL 100 MG TABLET 1.5 TABLET WITH FOOD ORALLY BID TAKING CARVEDILOL 12.5 MG TABLET 1 TAB ORALLY TWICE A DAY TAKING LISINOPRIL 40 MG TABLET 1 TABLET ORALLY ONCE A DAY TAKING TRAMADOL HCL 50 MG TABLET 1 TAB AM 2 TABS PM ORALLY EVERY 6 HRS PRN PAIN MDD=6 TAKING CLONAZEPAM 1 MG TABLET 1 TAB ORALLY BID TAKING ZETIA 10MG TABLET TAKE 1 TABLET DAILY TAKING NICOTINE 2 MG GUM 1 PIECE NEEDED MOUTH/THROAT 24 TIME(S) A DAY, NOTES: HAS NOT STARTED TAKING NICODERM CQ 14 MG/24HR PATCH 24 HOUR 1 PATCH TO SKIN TRANSDERMAL ONCE A DAY, NOTES: HAS NOT STARTED NOT-TAKING OXYBUTYNIN CHLORIDE ER 10 MG TABLET EXTENDED RELEASE 24 HOUR 1 TABLET ORALLY ONCE A DAY NOT-TAKING GABAPENTIN 100 MG CAPSULE 1 CAPSULE ORALLY ONCE A DAY NOT-TAKING PYRIDIUM 200 MG TABLET 1 TABLET AFTER MEALS ORALLY THREE TIMES A DAY NOT-TAKING PERCOCET 5-325 MG TABLET 1 TABLET NEEDED ORALLY Q8H PRN MDD3 NOT-TAKING CYCLOBENZAPRINE HCL 5 MG TABLET 1 TABLET NEEDED ORALLY THREE TIMES A DAY NOT-TAKING BACTRIM 400-80 MG TABLET 1 TABLET ORALLY BID MEDICATION LIST REVIEWED AND RECONCILED WITH THE PATIENT PAST MEDICAL HISTORY HTN (ETT 06/11 NEG), HAS SEEN CARDIOLOGY ANXIETY DEPRESSION HYPOTHYROID WITH 2 SMALL CYSTS HX OF C.DIFF TOBACCO ABUSE ETOH ABUSE IN REMISSION OSTEOPOROSIS ON 2018 DEXA, EVAL'D BY DR. RIOS ENDOCRINOLOGY RECOMMENDED BISPHOSPHANATES THYROID NODULES X 2, SUBCENTIMETER NO HISTORY OF BIOPSY HYPERLIPIDEMIA DYSTHYMIA OSTEOARTHRITIS ALLERGIES STATINS (FOR ALLERGY USE ONLY): ACHY, PAINFUL MUSCLES - ALLERGY MAGNESIUM: DIARRHEA - ALLERGY TRAZODONE HCL: MUSCLE ACHES - ALLERGY CYMBALTA: SEVERE STOMACH ACHE - SIDE EFFECTS PROZAC: NAUSEA/VOMITING - ALLERGY AUGMENTIN: DIARRHEA - SIDE EFFECTS GABAPENTIN: SEVERE STOMACH ACHE - SIDE EFFECTS SURGICAL HISTORY TONSILLECTOMY TUBAL LIGATION HYSTERECTOMY COLONOSCOPY/ENDOSCOPY TURBT 05/18/17 FAMILY HISTORY FATHER: , DIAGNOSED WITH CANCER MOTHER: , HEART DISEASE, OTHER PATERNAL GRAND FATHER: , CANCER PATERNAL GRAND MOTHER: , CANCER MATERNAL GRAND FATHER: , HEART DISEASE MATERNAL GRAND MOTHER: , CANCER 1 BROTHER(S) , 1 SISTER(S) . 1 SON(S) , 1 DAUGHTER(S) - HEALTHY. FATHER: SPINE CA\\\\\\\\\\\\\\\\\\\\\\\\\\\\\\\\NMOTHER: ALZHEIMERS\\\\\\\\\\\\\\\\\\\\\\\\\\\\\\\\NPATERNAL GF: BRAIN AND LUNG CA\\\\\\\\\\\\\\\\\\\\\\\\\\\\\\\\NPATERNAL GM: COLON CA\\\\\\\\\\\\\\\\\\\\\\\\\\\\\\\\NMATERNAL GM: CA UNKNOWN\\\\\\\\\\\\\\\\\\\\\\\\\\\\\\\\NSISTER: ARTHRITIS\\\\\\\\\\\\\\\\\\\\\\\\\\\\\\\\NBROTHER: ()BRAIN AND LUNG CA. SOCIAL HISTORY GENERAL: TOBACCO USE ARE YOU A:CURRENT SMOKER ARE YOU INTERESTED IN QUITTING?READY TO QUIT HAS CUT DOWN DRASTICALLY ON #/DAY COUNSELED THE PATIENT ON TOBACCO USE, CESSATION [id number]/30/2019 HOW MANY CIGARETTES A DAY DO YOU SMOKE?6-10 HOW SOON AFTER YOU WAKE UP DO YOU SMOKE YOUR FIRST CIGARETTE?31-60 MIN HOW OFTEN DO YOU SMOKE CIGARETTES?EVERY DAY PATIENT COUNSELED ON THE DANGERS OF TOBACCO USE AND URGED TO QUIT:01/24/2019 HIV / HEP-C SCREENING HIV TEST OFFERED TO PATIENT:YES DATE OFFERED:09/12/2018 TEST ACCEPTED:NO REASON:PATIENT DECLINED BROCHURE PROVIDED TO PATIENTYES HEP-C TEST OFFERED TO PATIENT:YES DATE OFFERED:09/12/2018 TEST ACCEPTED:NO REASON:PATIENT DECLINED OTHERS AT HOME: NONE. EDUCATION LEVEL OF EDUCATION:NOT FINISHED COLLEGE DIET: REGULAR. LANGUAGE LANGUAGES SPOKEN:SENEGALESE DOMESTIC VIOLENCE DO YOU FEEL SAFE IN YOUR ENVIRONMENT?YES RECREATIONAL DRUG USE DRUG USE?NO EXERCISE: WALKS, SWIMS. LEARNING BARRIERS / SPECIAL NEEDS CHANGE FROM LAST VISIT?NO BARRIERS TO LEARNING?NO HEARING IMPAIRED?NO VISION IMPAIRED?YES :CORRECTIVE LENSES GLASSES COGNITIVELY IMPAIRED?NO READINESS TO LEARN?YES LEARNING PREFERENCES?NO LEARNING CAPABILITIES PRESENT?YES EMOTIONAL BARRIERS?NO SPECIAL DEVICES?NO CANNON FIRE DIRECTION SPECIALIST NEEDED?NO PAIN CLINIC PFS, CLERGY, PUBLIC HEALTH REFERRALS PFS REFERRAL NEEDED?NO CLERGY REFERRAL NEEDED?NO PUBLIC HEALTH REFERRAL NEEDED?NO HAS THE PATIENT BEEN EDUCATED REGARDING HIS/HER PLAN OF CARE?YES HAS THE PATIENT BEEN EDUCATED REGARDING PAIN, THE RISK FOR PAIN, THE IMPORTANCE OF EFFECTIVE PAIN MANAGEMENT, AND THE PAIN ASSESSMENT PROCESS?YES LATEX QUESTIONNAIRE LATEX ALLERGY : HAVE YOU EVER DEVELOPED ANY TYPE OF REACTION AFTER HANDLING LATEX PRODUCTS SUCH RUBBER GLOVES, CONDOMS, DIAPHRAGMS, BALLOONS, SOCKS, OR UNDERWEAR?NO LATEX ALLERGY : HAVE YOU EVER DEVELOPED ANY TYPE OF REACTION DURING OR AFTER DENTAL APPOINTMENT, VAGINAL/RECTAL EXAMINATION, SURGICAL PROCEDURE, OR ANY OTHER EXPOSURE?NO LATEX RISK : HAVE YOU EVER HAD ANY DIFFICULTY BREATHING OR HIVES AFTER EATING OR HANDLING ANY FRUITS, OR VEGETABLES; SUCH KIWI, BANANAS, STONE FRUITS, OR CHESTNUTSNO LATEX RISK : DO YOU HAVE A PREVIOUS PERSONAL HISTORY OF MORE THAN NINE SURGERIES, SPINA BIFIDA, OR REPEATED CATHERTIZATIONS? NO LATEX RISK : ARE YOU FREQUENTLY EXPOSED TO LATEX PRODUCTS IN YOUR OCCUPATION?YES DATE ASKED : 12/05/2018 CAFFEINE CAFFEINE USE?NO ADVANCE DIRECTIVE ADVANCE DIRECTIVE DISCUSSED WITH PATIENT:YES STATES SHE HAS A HCP-WILL BRING COPY IN AT NEXT VISIT. 01/24/19 RESTORATIONIST [id number] [facility] MARITAL STATUS: . ALCOHOL SCREENING DID YOU HAVE A DRINK CONTAINING ALCOHOL IN THE PAST YEAR?NO POINTS0 INTERPRETATIONNEGATIVE OCCUPATION: RETIRED. SEXUAL HX HAD SEX IN THE LAST 12 MONTHS (VAGINAL, ORAL, OR ANAL)?NO HAVE YOU EVER HAD AN STD?NO REVIEWED 08/22/18 NLREVIEWED [facility] PT 10/31/18 0905 BV12/12/18 REVIEWED WITH PT. ADREVIEWED WITH PT 01/24/19 1052 BV. HOSPITALIZATION/MAJOR DIAGNOSTIC PROCEDURE SEE SURGERIES FRACTURED PELVIS CHILDBIRTH REVIEW OF SYSTEMS REVIEWED BY: PROVIDER: TESS MÁRQUEZ . CONSTITUTIONAL: ANY CHANGE IN YOUR MEDICAL CONDITION? NO . CHILLS NO . FEVER NO . INFECTION: DO YOU HAVE NEW INFECTIONS? YES, PT HAD A UTI, AND WAS TREATED BY UROLOGIST WITH ANTIBIOTICS FOR IT. . DO YOU HAVE HISTORY OF MRSA? NO . MUSCULOSKELETAL: ANY NEW PATTERNS OF PAIN OR NUMBNESS? NO . GASTROENTEROLOGY: ANY NEW CHANGE IN BOWEL CONTROL? NO . GENITOURINARY: ANY NEW CHANGE IN BLADDER CONTROL? YES, PT RECENTLY HAD UTI AND WAS TREATED WITH ANTIBIOTICS. STATES SHE HAS A FOLLOW UP WITH UROLOGIST ON 01/27/19. . IS THERE A CHANCE YOU COULD BE ? NO . HEMATOLOGY/LYMPH: DO YOU TAKE ANY BLOOD THINNERS? (FOR EXAMPLE- COUMADIN, PLAVIX, AGGRENOX, PLATEL, PRADAXA, OR XARELTO) NO . WHEN WAS YOUR LAST DOSE? DATE: TIME: . NEUROLOGY: HAVE YOU FALLEN IN THE PAST 12 MONTHS? YES, PT STATES SHE HAD A FALL ABOUT A MONTH AGO, SLIPPED AND FELL. DENIES ANY INJURIES OR ED VISIT WITH ANY FALL. . ANY NEW EXTREMITY NUMBNESS OR WEAKNESS? NO . CARDIOLOGY: DO YOU HAVE A PACEMAKER OR DEFIBRILLATOR? NO . RESPIRATORY: HAVE YOU BEEN SICK IN THE PAST WEEK? NO . FEVER NO . FLU LIKE SYMPTOMS? NO . COUGH NO . INTEGUMENTARY: DO YOU HAVE ANY RASHES OR OPEN SORES? NO . ALLERGIC/IMMUNO: ARE YOU ALLERGIC TO IV DYE? NO . ANY NEW ALLERGIES? YES, GABAPENTIN GAVE PT SEVERE STOMACH ACHE . PSYCHIATRIC: DO YOU HAVE THOUGHTS OF HURTING YOURSELF OR SOMEONE ELSE? NO . ARE YOU ABUSED, NEGLECTED, OR IN AN UNSAFE ENVIRONMENT? NO . ENDOCRINOLOGY: ARE YOU DIABETIC? NO . OTHER: DO YOU NEED ANY PRESCRIPTIONS? NO . IF YES, PLEASE LIST: ____ . ANY NEW PROBLEMS WITH YOUR MEDICATIONS? NO . WHEN DID YOU LAST EAT? ____ . WHEN DID YOU LAST DRINK? ____ . WHAT DID YOU LAST DRINK? ____ . NAME OF PERSON DRIVING YOU HOME? ____ . DO YOU HAVE ANY OTHER QUESTIONS OR CONCERNS NO . VITAL SIGNS WT 164.6 LBS, HT 62.5 IN, BMI 29.62 INDEX, BP 125/73 MM HG, HR 81 /MIN, RR 18 /MIN, TEMP 97.4 F, OXYGEN SAT % 96%, NA INITIALS AW 1026, REVIEWED BY: BV. EXAMINATION GENERAL EXAMINATION: GENERAL APPEARANCE:AWAKE,ALERT ,PLEAASANT . PSYCHAFFECT NORMAL . LUNGS:LUNG CERON ARE CLEAR TO AUSCULTATION BILATERALLY. GOOD MOVEMENT OF AIR . HEART:S1, S2 IN A REGULAR RATE AND RHYTHM. NO SIGNIFICANT MURMURS, RUBS OR GALLOPS NOTED . LUMBAR SACRAL SPINEMILD TENDERNESS NOTED OVER LUMBOSACRAL PARASPINAL.SPECIFIC POINT TENDERNESS OVER PIRIFORMIS MUSCLES R>L. ASSESSMENTS PIRIFORMIS MUSCLE PAIN - M79.18 (PRIMARY) TREATMENT PIRIFORMIS MUSCLE PAIN CONTINUE TRAMADOL HCL TABLET, 50 MG, 1 TAB AM 2 TABS PM, ORALLY, EVERY 6 HRS PRN PAIN MDD=6 NOTES: R VS L PIRIFORMIS INJECTIONISTOP REGISTRY REVIEWED AND DEMONSTRATES COMPLLIANCE. (REF # [id number] ) [facility] NARCOTIC AGREEMENT WAS REVIEWED AND SIGNED TODAY BY THE PATIENT. SEE ATTACHED DOCUMENT FOR FULL DETAILS; SPECIFIC ISSUES WERE REVIEWED: 1) KEEP PAIN MEDS IN THEIR ORIGINAL BOTTLES AND ANY WEEKLY PLANNERS ARE TO BE BROUGHT TO THE PAIN CENTER AT EVERY VISIT. 2) THE PATIENT IS NOT TO INCREASE DOSING OR TIMING OF THEIR PAIN MEDICATION WITHOUT SPECIFIC DIRECTION OF THEIR PAIN CENTERPROVIDER (NOT ER OR OTHER PROVIDERS). 3) ALL PAIN MEDS ARE TO BE KEPT SECURED, IN A LOCKED BOX. 4) NO PAIN MEDS ARE TO BE SHARED WITH ANY OTHER PERSON FOR ANY REASON. 5) NO PAIN MEDS MAY BE TAKEN FROM ANY FRIENDS OR RELATIVES FOR ANY REASON 6) NO MEDS OR SUBSTANCES WHICH ARE NOT LEGAL ARE TO BE USED- NO MARIJUANA, NO COCAINE, AMPHETAMINES, HEROIN, OR OTHERS ARE EVER TO BE USED. 7)URINE TESTING IS DONE TO ACCOUNT FOR MEDS AND SUBSTANCES BEING TAKEN AND WILL BE DONE RANDOMLY., RISKS AND BENEFITS OF NARCOTIC/OPIOD MEDICATIONS WERE REVIEWED WITH PATIENT - THIS INCLUDES BUT IS NOT LIMITED TO RISK OF DEPENDANCE/DEVELOPMENT OF ADDICTION, MOOD DISTURBANCE AND DEPRESSION, OSTEOPOROSIS, HORMONAL AND LABIDAL CHANGES, RESPIRATORY DEPRESSION AND . PATIENT IS ADVISED NOT TO DRIVE OR DRINK ALCOHOL WHILE ON THESE MEDICATIONS, . PREVENTIVE MEDICINE PAIN CLINIC TEACHING: PROCEDURE TEACHING PT GIVEN WRITTEN AND VERBAL EDUCATION ON PIRAFORMIS INJECTION. PT ALSO GIVEN WRITTEN AND VERBAL PRE-PROCEDURE INSTRUCTIONS. PT VERBALIZES UNDERSTANDING OF ALL INSTRUCTIONS AND EDUCATION. BLAIRE VOGEL 01/24/2019 11:41:46 AM > . PROCEDURE CODES FA211 ESTABILISHED PATIENT [facility] CHARGE DISPOSITION & COMMUNICATION FOLLOW UP REASON: R VS L PIRIFORMIS INJECTION ELECTRONICALLY SIGNED BY YULISA FAJARDO ON 02/08/2019 AT 12:37 PM EDT DISCLAIMER : THIS IS A VISIT SUMMARY EXTRACTED FROM THE [employer] CHART. IT IS NOT A COPY OF THE [employer] PROGRESS NOTE. TRACEY
== END ==
LOC: M PAIN 10:15
PROVIDERS: ATTEND Nurse Practitioner Family
DX: M79.18 Myalgia, other site (principal); I10 Essential (primary) hypertension; Z86.59 Personal history of other mental and behavioral disorders; E03.9 Hypothyroidism, unspecified; Z86.19 Personal history of other infectious and parasitic diseases; M81.0 Age-related osteoporosis without current pathological fracture; E78.5 Hyperlipidemia, unspecified; M19.90 Unspecified osteoarthritis, unspecified site; F17.210 Nicotine dependence, cigarettes, uncomplicated; Z88.1 Allergy status to other antibiotic agents; Z88.8 Allergy status to other drugs, medicaments and biological substances; Z79.891 Long term (current) use of opiate analgesic; Z79.899 Other long term (current) drug therapy

== ENCOUNTER → 2019-02-06 | Outpatient (REF) | payer MEDICARE | LOC: M SMT 13:26 | PROVIDERS: ATTEND Nurse Practitioner Women's Health | DX: N39.0 Urinary tract infection, site not specified (principal) ==

== ENCOUNTER → 2019-02-08 | Outpatient (CLI) | payer MEDICARE ==
--- NOTE | 2019-02-08 14:00 | REPMRS ---
Patient History The patient states she has not had a clinical breast exam in over a year. Patient is postmenopausal. Family history of colorectal cancer in paternal grandmother. Digital Woman Screen Mammo: February 08, 2019 - Exam #: [id number] Bilateral CC and MLO view(s) were taken. Technologist: Jeaentte Neely, Technologist Prior study comparison: February 07, 2018, digital woman screen mammo performed at [facility]. December 17, 2016, bilateral digital mammo screening bilat, performed at [facility]. October 02, 2015, digital bilateral screening mammo, performed at [facility]. FINDINGS: There are scattered fibroglandular densities. There has been no change in the appearance of the mammogram from the prior studies. There is a mild amount of scattered fibroglandular density which is fairly symmetric. There is no interval development of dominant mass, architectural distortion, or clustered microcalcification suggestive of malignancy. 3-D tomosynthesis shows no additional findings. Assessment: BI-RADS/ACR category 1 mammogram. Negative Mammogram. Recommendation Routine screening mammogram of both breasts in 1 year (for women over age 40). This patient's Lifetime Breast Cancer RIsk is estimated at 5.2 %. This mammogram was interpreted with the aid of an FDA-approved computer-aided dectection system. Electronically Signed By: Fermín Abraham MD 02/08/19 1400
== END ==
LOC: M WHC 12:52
PROVIDERS: ATTEND Family Medicine
DX: Z12.31 Encounter for screening mammogram for malignant neoplasm of breast (principal); Z78.0 Asymptomatic menopausal state

== ENCOUNTER → 2019-02-23 | Outpatient (REF) | payer MEDICARE ==
[2019-02-23 19:14] LABS: BACTERIA, URINE AUTO NEGATIVE (NEGATIVE); MUCUS, URINE SMALL (NEGATIVE); RBC, URINE AUTO 2 /HPF (0-3); SQUAMOUS EPITHELIAL CELL UR AU 0 /HPF (0-6); TRANSITIONAL EPITHELIAL AUTO <1 /HPF; WBC, URINE AUTO 2 /HPF (0-3)
== END ==
LOC: M SMT 17:03
PROVIDERS: ATTEND Specialist
DX: R39.15 Urgency of urination (principal)
CPT/HCPCS: 51798; 52281; 81015; 87086; G0463

== ENCOUNTER → 2019-03-14 | Outpatient (CLI) | payer MEDICARE ==
[~2019-03-14] MED LIST changes: +BUPIVACAINE HCL 0.25% 30 ML VIAL As Ordered ONE; +ISOVUE-M 300 61% 15ML VIAL (Q9967) As Ordered ONE; +LIDOCAINE 1% SDV INJ 30 ML VIAL As Ordered ONE; +MM S100C PO; -STOO100C PO; +TRIAMCINOLONE ACETONIDE SUSP 40 MG/ML VIAL (J3301) As Ordered ONE
== END ==
LOC: M PAIN 11:00
PROVIDERS: ATTEND Anesthesiology
DX: M70.71 Other bursitis of hip, right hip (principal); M70.61 Trochanteric bursitis, right hip; I10 Essential (primary) hypertension; F41.9 Anxiety disorder, unspecified; F32.9 Major depressive disorder, single episode, unspecified; E03.9 Hypothyroidism, unspecified; E04.2 Nontoxic multinodular goiter; F10.11 Alcohol abuse, in remission; M81.0 Age-related osteoporosis without current pathological fracture; E78.5 Hyperlipidemia, unspecified; F34.1 Dysthymic disorder; M19.90 Unspecified osteoarthritis, unspecified site; F17.210 Nicotine dependence, cigarettes, uncomplicated; Z79.891 Long term (current) use of opiate analgesic; Z79.899 Other long term (current) drug therapy; Z88.1 Allergy status to other antibiotic agents; Z88.8 Allergy status to other drugs, medicaments and biological substances

== ENCOUNTER → 2019-03-14 | Outpatient (CLI) | payer MEDICARE ==
[~2019-03-14] MED LIST changes: -BUPIVACAINE HCL 0.25% 30 ML VIAL As Ordered ONE; -ISOVUE-M 300 61% 15ML VIAL (Q9967) As Ordered ONE; -LIDOCAINE 1% SDV INJ 30 ML VIAL As Ordered ONE; -MM S100C PO; +STOO100C PO; -TRIAMCINOLONE ACETONIDE SUSP 40 MG/ML VIAL (J3301) As Ordered ONE
--- NOTE | 2019-03-14 15:16 | REP ---
C-ARM VIEWS RIGHT ISCHIUM: CLINICAL HISTORY: Pain . Multiple C-arm views of the right ischium performed during injection by Dr. Arita. The needle was seen with the tip at the margin of the right ischium and a small amount of contrast is injected. 10 seconds of fluoroscopy time utilized. Electronically Signed by Larry Cho MD 03/14/2019 04:44 P
--- NOTE | 2019-03-22 00:45 | ECWPNPC ---
PATIENT NAME: FRED MICHELLE : 1950 GENDER: FEMALE VISIT DATE: 03/14/2019 DISCHARGE DATE: 03/14/19 1437 VISIT LOCKED DATE TIME: PHYSICIAN: POOJA KENNEY MD RESOURCE: POOJA KENNEY MD REASON FOR APPOINTMENT 1. F/U AND RIGHT ISCHIAL TUBEROSITY HISTORY OF PRESENT ILLNESS HISTORY OF PRESENT ILLNESS: PAIN THE PATIENT DESCRIBES THE PAIN... 68 YEAR OLD FEMALE PATIENT WITH A HISTORY OF CHRONIC RIGHT BUTTOCK PAIN. THE PATIENT DESCRIBES THE PAIN ACHING, STABBING, AND TENDER WITH A PAIN SCORE OF 6-9/10 DEPENDING ON PHYSICAL ACTIVITY. THE PATIENT HAS HAD THIS PAIN FOR SEVERAL YEARS. PATIENT DENIES UNEXPLAINABLE WEIGHT LOSS, FEVER, CHILLS, NEW CHANGES ON HER URINARY OR BOWEL CONTROL. FALL RISK SCREENING: SCREENING :NO FALLS REPORTED IN THE LAST YEAR CURRENT MEDICATIONS TAKING VITAMIN D3 1000 UNIT CAPSULE 1 CAPSULE ORALLY BID, NOTES: 03/14/19 07 TAKING CALCIUM + D3 600-200 MG-UNIT TABLET 1 TAB ORALLY BID, NOTES: 03/14/19 06 TAKING MULTI FOR HER - TABLET 1 TAB ORALLY DAILY, NOTES: 03/14/19699 TAKING LEVOTHYROXINE SODIUM 25 MCG TABLET 1 TABLET ON AN EMPTY STOMACH IN THE MORNING ORALLY ONCE A DAY, NOTES: 03/14/19 08 TAKING CARVEDILOL 12.5 MG TABLET 1 TAB ORALLY TWICE A DAY, NOTES: 03/14/19699 TAKING LISINOPRIL 40 MG TABLET 1 TABLET ORALLY ONCE A DAY, NOTES: 03/13/192199 TAKING ZETIA 10MG TABLET TAKE 1 TABLET DAILY , NOTES: 03/13/192199 TAKING VENLAFAXINE HCL 100 MG TABLET 1.5 TABLET WITH FOOD ORALLY BID, NOTES: 03/14/19799 TAKING AMLODIPINE BESYLATE 10 MG TABLET 1 TABLET ORALLY ONCE A DAY, NOTES: 03/14/19 07 TAKING PROAIR HFA 108 (90 BASE) MCG/ACT AEROSOL SOLUTION 2 PUFFS NEEDED INHALATION EVERY 4-6 HRS, NOTES: A COUPLE WEEKS AGO TAKING CLONAZEPAM 1 MG TABLET 1 TAB ORALLY BID, NOTES: 03/14/19 07 TAKING TRAMADOL HCL 50 MG TABLET 1 TAB AM 2 TABS PM ORALLY EVERY 6 HRS PRN PAIN MDD=6, NOTES: 03/13/192199 TAKING TRAMADOL HCL 50 MG TABLET 1 TABLET NEEDED ORALLY FOR PAIN EVERY 4 HOURS NEEDED MDD6 NOT-TAKING GABAPENTIN 100 MG CAPSULE 1 CAPSULE ORALLY ONCE A DAY, NOTES: NOT TAKING NOT-TAKING PYRIDIUM 200 MG TABLET 1 TABLET AFTER MEALS ORALLY THREE TIMES A DAY NOT-TAKING PERCOCET 5-325 MG TABLET 1 TABLET NEEDED ORALLY Q8H PRN MDD3 NOT-TAKING CYCLOBENZAPRINE HCL 5 MG TABLET 1 TABLET NEEDED ORALLY THREE TIMES A DAY NOT-TAKING BACTRIM 400-80 MG TABLET 1 TABLET ORALLY BID NOT-TAKING OXYBUTYNIN CHLORIDE ER 10 MG TABLET EXTENDED RELEASE 24 HOUR 1 TABLET ORALLY ONCE A DAY NOT-TAKING NICOTINE 2 MG GUM 1 PIECE NEEDED MOUTH/THROAT 24 TIME(S) A DAY, NOTES: HAS NOT STARTED NOT-TAKING NICODERM CQ 14 MG/24HR PATCH 24 HOUR 1 PATCH TO SKIN TRANSDERMAL ONCE A DAY, NOTES: HAS NOT STARTED NOT-TAKING BENZONATATE 200 MG CAPSULE 1 CAPSULE ORALLY THREE TIMES A DAY NEEDED FOR COUGH NOT-TAKING BACTRIM DS 800-160 MG TABLET 1 TABLET ORALLY DIRECTED- 1 HOUR PRIOR TO CYSTOSCOPY MEDICATION LIST REVIEWED AND RECONCILED WITH THE PATIENT PAST MEDICAL HISTORY HTN (ETT 06/11 NEG), HAS SEEN CARDIOLOGY ANXIETY DEPRESSION HYPOTHYROID WITH 2 SMALL CYSTS HX OF C.DIFF TOBACCO ABUSE ETOH ABUSE IN REMISSION OSTEOPOROSIS ON 2018 DEXA, EVAL'D BY DR. RIOS ENDOCRINOLOGY RECOMMENDED BISPHOSPHANATES THYROID NODULES X 2, SUBCENTIMETER NO HISTORY OF BIOPSY HYPERLIPIDEMIA DYSTHYMIA OSTEOARTHRITIS ALLERGIES STATINS (FOR ALLERGY USE ONLY): ACHY, PAINFUL MUSCLES - ALLERGY MAGNESIUM: DIARRHEA - ALLERGY TRAZODONE HCL: MUSCLE ACHES - ALLERGY CYMBALTA: SEVERE STOMACH ACHE - SIDE EFFECTS PROZAC: NAUSEA/VOMITING - ALLERGY AUGMENTIN: DIARRHEA - SIDE EFFECTS GABAPENTIN: SEVERE STOMACH ACHE - SIDE EFFECTS SURGICAL HISTORY TONSILLECTOMY TUBAL LIGATION HYSTERECTOMY COLONOSCOPY/ENDOSCOPY TURBT 05/18/17 CYSTOSCOPY FAMILY HISTORY FATHER: , DIAGNOSED WITH CANCER MOTHER: , HEART DISEASE, OTHER PATERNAL GRAND FATHER: , CANCER PATERNAL GRAND MOTHER: , CANCER MATERNAL GRAND FATHER: , HEART DISEASE MATERNAL GRAND MOTHER: , CANCER 1 BROTHER(S) , 1 SISTER(S) . 1 SON(S) , 1 DAUGHTER(S) - HEALTHY. FATHER: SPINE CA\\\\\\\\\\\\\\\\\\\\\\\\\\\\\\\\\\\\\\\\\\\\\\\\\\\\\\\\\\\\\\\ NMOTHER: ALZHEIMERS\\\\\\\\\\\\\\\\\\\\\\\\\\\\\\\\\\\\\\\\\\\\\\\\\\\\\\\ \\\\\\\\NPATERNAL GF: BRAIN AND LUNG CA\\\\\\\\\\\\\\\\\\\\\\\\\\\\\\\\\\\\\\\\\\\\\\\\\\\\\\\\\\\\\\\ NPATERNAL GM: COLON CA\\\\\\\\\\\\\\\\\\\\\\\\\\\\\\\\\\\\\\\\\\\\\\\\\\\\\\\\\\\\\\\ NMATERNAL GM: CA UNKNOWN\\\\\\\\\\\\\\\\\\\\\\\\\\\\\\\\\\\\\\\\\\\\\\\\\\\\\\\\\\ \\\\\NSISTER: ARTHRITIS\\\\\\\\\\\\\\\\\\\\\\\\\\\\\\\\\\\\\\\\\\\\\\\\\\\\\\\\ \\\\\\\NBROTHER: ()BRAIN AND LUNG CA. SOCIAL HISTORY GENERAL: TOBACCO USE ARE YOU A:CURRENT SMOKER ARE YOU INTERESTED IN QUITTING?READY TO QUIT HAS CUT DOWN DRASTICALLY ON #/DAY, HAS PATCHES COUNSELED THE PATIENT ON TOBACCO USE, CESSATION [id number]/18/2019 HOW MANY CIGARETTES A DAY DO YOU SMOKE?5 OR LESS HOW SOON AFTER YOU WAKE UP DO YOU SMOKE YOUR FIRST CIGARETTE?31-60 MIN HOW OFTEN DO YOU SMOKE CIGARETTES?EVERY DAY PATIENT COUNSELED ON THE DANGERS OF TOBACCO USE AND URGED TO QUIT:03/14/2019 HIV / HEP-C SCREENING HIV TEST OFFERED TO PATIENT:YES DATE OFFERED:09/12/2018 TEST ACCEPTED:NO REASON:PATIENT DECLINED BROCHURE PROVIDED TO [facility] HEP-C TEST OFFERED TO PATIENT:YES DATE OFFERED:09/12/2018 TEST ACCEPTED:NO REASON:PATIENT DECLINED OTHERS AT HOME: NONE. EDUCATION LEVEL OF EDUCATION:NOT FINISHED COLLEGE DIET: REGULAR. LANGUAGE LANGUAGES SPOKEN:MONTENEGRIN DOMESTIC VIOLENCE DO YOU FEEL SAFE IN YOUR ENVIRONMENT?YES RECREATIONAL DRUG USE DRUG USE?NO EXERCISE: WALKS, SWIMS. LEARNING BARRIERS / SPECIAL NEEDS CHANGE FROM LAST VISIT?NO BARRIERS TO LEARNING?NO HEARING IMPAIRED?NO VISION IMPAIRED?YES :CORRECTIVE LENSES GLASSES COGNITIVELY IMPAIRED?NO READINESS TO LEARN?YES LEARNING PREFERENCES?NO LEARNING CAPABILITIES PRESENT?YES EMOTIONAL BARRIERS?NO SPECIAL DEVICES?NO MANAGER [place] NEEDED?NO PAIN CLINIC PFS, CLERGY, PUBLIC HEALTH REFERRALS PFS REFERRAL NEEDED?NO CLERGY REFERRAL NEEDED?NO PUBLIC HEALTH REFERRAL NEEDED?NO HAS THE PATIENT BEEN EDUCATED REGARDING HIS/HER PLAN OF CARE?YES HAS THE PATIENT BEEN EDUCATED REGARDING PAIN, THE RISK FOR PAIN, THE IMPORTANCE OF EFFECTIVE PAIN MANAGEMENT, AND THE PAIN ASSESSMENT PROCESS?YES LATEX QUESTIONNAIRE LATEX ALLERGY : HAVE YOU EVER DEVELOPED ANY TYPE OF REACTION AFTER HANDLING LATEX PRODUCTS SUCH RUBBER GLOVES, CONDOMS, DIAPHRAGMS, BALLOONS, SOCKS, OR UNDERWEAR?NO LATEX ALLERGY : HAVE YOU EVER DEVELOPED ANY TYPE OF REACTION DURING OR AFTER DENTAL APPOINTMENT, VAGINAL/RECTAL EXAMINATION, SURGICAL PROCEDURE, OR ANY OTHER EXPOSURE?NO LATEX RISK : HAVE YOU EVER HAD ANY DIFFICULTY BREATHING OR HIVES AFTER EATING OR HANDLING ANY FRUITS, OR VEGETABLES; SUCH KIWI, BANANAS, STONE FRUITS, OR CHESTNUTSNO LATEX RISK : DO YOU HAVE A PREVIOUS PERSONAL HISTORY OF MORE THAN NINE SURGERIES, SPINA BIFIDA, OR REPEATED CATHERTIZATIONS? NO LATEX RISK : ARE YOU FREQUENTLY EXPOSED TO LATEX PRODUCTS IN YOUR OCCUPATION?YES DATE ASKED : 02/23/2019 CAFFEINE CAFFEINE USE?NO ADVANCE DIRECTIVE ADVANCE DIRECTIVE DISCUSSED WITH PATIENT:YES HCP IS DINESH FOSTER [phone], COPY SCANNED IN DOCUMENTS [facility] [id number] [facility] STATUS: . ALCOHOL SCREENING DID YOU HAVE A DRINK CONTAINING ALCOHOL IN THE PAST YEAR?NO POINTS0 INTERPRETATIONNEGATIVE OCCUPATION: RETIRED. SEXUAL HX HAD SEX IN THE LAST 12 MONTHS (VAGINAL, ORAL, OR ANAL)?NO HAVE YOU EVER HAD AN STD?NO REVIEWED 08/22/18 NLREVIEWED [facility] PT 10/31/18 0905 BV12/12/18 REVIEWED WITH PT. ADREVIEWED WITH PT 01/24/19 1052 BVREVIEWED WITH PT 03/14/19 1245 LAS. HOSPITALIZATION/MAJOR DIAGNOSTIC PROCEDURE SEE SURGERIES FRACTURED PELVIS CHILDBIRTH REVIEW OF SYSTEMS REVIEWED BY: PROVIDER: POOJA KENNEY MD . CONSTITUTIONAL: ANY CHANGE IN YOUR MEDICAL CONDITION? NO . CHILLS NO . FEVER NO . INFECTION: DO YOU HAVE NEW INFECTIONS? NO . DO YOU HAVE HISTORY OF MRSA? NO . MUSCULOSKELETAL: ANY NEW PATTERNS OF PAIN OR NUMBNESS? NO . GASTROENTEROLOGY: ANY NEW CHANGE IN BOWEL CONTROL? NO . GENITOURINARY: ANY NEW CHANGE IN BLADDER CONTROL? NO . IS THERE A CHANCE YOU COULD BE ? NO . HEMATOLOGY/LYMPH: DO YOU TAKE ANY BLOOD THINNERS? (FOR EXAMPLE- COUMADIN, PLAVIX, AGGRENOX, PLATEL, PRADAXA, OR XARELTO) NO . WHEN WAS YOUR LAST DOSE? DATE: TIME: . NEUROLOGY: HAVE YOU FALLEN IN THE PAST 12 MONTHS? NO . ANY NEW EXTREMITY NUMBNESS OR WEAKNESS? NO . CARDIOLOGY: DO YOU HAVE A PACEMAKER OR DEFIBRILLATOR? NO . RESPIRATORY: HAVE YOU BEEN SICK IN THE PAST WEEK? NO . FEVER NO . FLU LIKE SYMPTOMS? NO . COUGH NO . INTEGUMENTARY: DO YOU HAVE ANY RASHES OR OPEN SORES? NO . ALLERGIC/IMMUNO: ARE YOU ALLERGIC TO IV DYE? NO . ANY NEW ALLERGIES? NO . PSYCHIATRIC: DO YOU HAVE THOUGHTS OF HURTING YOURSELF OR SOMEONE ELSE? NO . ARE YOU ABUSED, NEGLECTED, OR IN AN UNSAFE ENVIRONMENT? NO . ENDOCRINOLOGY: ARE YOU DIABETIC? NO . OTHER: DO YOU NEED ANY PRESCRIPTIONS? NO . IF YES, PLEASE LIST: ____ . ANY NEW PROBLEMS WITH YOUR MEDICATIONS? NO . WHEN DID YOU LAST EAT? ____03/14/19 0500 . WHEN DID YOU LAST DRINK? ____03/14/19 1000 . WHAT DID YOU LAST DRINK? ____WATER . NAME OF PERSON DRIVING YOU HOME? ____TAXI, PER PT, HER NEIGHBOR WILL STAY WITH PT TODAY . DO YOU HAVE ANY OTHER QUESTIONS OR CONCERNS NO . VITAL SIGNS WT 164 LBS, HT 62.5 IN, BMI 29.51 INDEX, BP 105/55 MM HG, HR 85 /MIN, RR 18 /MIN, TEMP 96.7 F, OXYGEN SAT % 95%, NA INITIALS AW 1154, REVIEWED BY: SHANTELLE. EXAMINATION GENERAL EXAMINATION: PATIENT IS ALERT O X 3 AND COOPERATIVE. SEVERE TENDERNESS OVER THE RIGHT ISCHIAL TUBEROSITY. MRI OF THE LUMBAR SPINE DONE ON 10/27/2017 SHOWS FACET ARTHROPATHY CHANGES. 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 MICHELLE' PAIN MANAGEMENT CASE. DUE TO THE ISCHIAL TUBEROSITY BURSITIS, I WOULD LIKE TO MOVE FORWARD WITH AN INJECTION OVER THE RIGHT ISCHIAL TUBEROSITY. WE DISCUSSED THE BENEFITS, RISKS, AND ALTERNATIVES OF THE INJECTION AND THE PATIENT WOULD LIKE TO PROCEED. INSTRUCTIONS WERE GIVEN, QUESTIONS WERE ANSWERED, PATIENT REPORTS UNDERSTANDING AND AGREES WITH THE PLAN. I, KIMBERLEE WHITTEN, DOCUMENTED THE ABOVE INFORMATION ACTING A SCRIBE FOR DR. KENNEY. I HAVE REVIEWED THE ABOVE DOCUMENT, WRITTEN BY KIMBERLEE SULLIVAN AND I VERIFY THAT IT IS ACCURATE. . PROCEDURES PREPROCEDURE DIAGNOSIS: BURSITIS AT THE RIGHT ISCHIAL TUBEROSITY. POSTPROCEDURE DIAGNOSIS: BURSITIS AT THE RIGHT ISCHIAL TUBEROSITY. PROCEDURE: INJECTION AT THE BURSA OF THE RIGHT ISCHIAL TUBEROSITY UNDER FLUOROSCOPIC GUIDANCE. SURGEON: DR. POOJA KENNEY CARD LACER: NONEANESTHESIA: LOCAL. PREOPERATIVE NOTE: THE PATIENT HAS A HISTORY OF RIGHT BUTTOCK PAIN WITH INCREASED PAIN IN THE SITTING POSITION. I EVALUATED THE PATIENT AND REVIEWED THE CHART. WE BOTH AGREE ON INJECTING OVER THE BURSA OF THE RIGHT ISCHIAL TUBEROSITY. I WENT THROUGH THE RISKS, ALTERNATIVES, AND BENEFITS ASSOCIATED WITH THIS PROCEDURE. THE PATIENT WOULD LIKE TO PROCEED AND GIVE CONSENT TO PERFORMED THE PROCEDURE. THE PATIENT DENIES UNEXPLAINABLE WEIGHT LOSS, FEVERS, CHILLS, OR CHANGES IN HIS URINARY OR BOWEL CONTROL. DESCRIPTION OF PROCEDURE: AFTER CONSENT WAS TAKEN, THE PATIENT WAS BROUGHT TO THE PROCEDURE ROOM AND PLACED IN THE PRONE. THE RIGHT BUTTOCK AREA WAS CLEANED WITH CHLORAPREP SOLUTION AND DRAPED ASEPTICALLY. THE PROCEDURE WAS DONE UNDER STERILE CONDITIONS. I CHECKED LATERALITY WITH THE PATIENT AND THE STAFF IN THE PROCEDURE ROOM AT THE MOMENT OF THE TIME OUT. UNDER FLUOROSCOPIC GUIDANCE, TARGET WAS SELECTED AT THE LOWER BORDER OF THE RIGHT ISCHIAL TUBEROSITY. LIDOCAINE WAS USED TO NUMB THE SKIN AND THE SUBCUTANEOUS TISSUE BELOW IT. SPINAL NEEDLE, 22-GAUGE WAS ADVANCED UNDER FLUOROSCOPIC GUIDANCE AND FOLLOWING PATIENT FEEDBACK UNTIL THE TARGET WAS TOUCHED. POSITION OF THE NEEDLE WAS VERIFIED WITH AP AND LATERAL VIEWS. AFTER PROPER POSITION OF THE NEEDLE WAS ACHIEVED, ISOVUE M DYE, 30%, 0.25 ML WAS INJECTED SHOWING ADEQUATE SPREAD OF THE DYE. THEN A SOLUTION OF 10 ML OF BUPIVACAINE 0.25% AND KENALOG 40 MG WAS INJECTED. THERE WAS NO EVIDENCE OF BLOOD OR PARESTHESIA. THE PATIENT WAS SENT TO THE RECOVERY ROOM. THE PATIENT WAS MOVING THE EXTREMITIES AND DOING WELL. THERE WERE NO COMPLICATIONS DURING THE PROCEDURE. FLUOROSCOPIC TIME WAS 10 SECONDS.POSTOPERATIVE NOTE: I DISCUSSED ALTERNATIVES WITH THE PATIENT. WE WILL SEE THE PATIENT BACK IN SEVERAL WEEKS FOR REEVALUATION OF THE CASE. I AM LOOKING FOR LONG-LASTING PAIN RELIEF WITH THIS INTERVENTION. FURTHER RECOMMENDATIONS WILL BE DONE DEPENDING ON HOW THE PATIENT DOES. THERE WERE NO COMPLICATIONS. I, JUSTINO JIMENEZ, DOCUMENTED THE ABOVE INFORMATION ACTING A SCRIBE FOR DR. KENNEY. I HAVE REVIEWED THE ABOVE DOCUMENT, WRITTEN BY JUSTINO JIMENEZ SCRIBCarolyn AND I VERIFY THAT IT IS ACCURATE. PROCEDURE CODES 6045F RADXPS IN END [id number] PXD [id number] NEEDLE LOCALIZATION BY XRAY, MODIFIERS: DRAIN/INJ JOINT/BURSA W/O US, MODIFIERS: RT DISPOSITION & COMMUNICATION FOLLOW UP 3 WEEKS ELECTRONICALLY SIGNED BY POOJA KENNEY MD, MD ON 03/21/2019 AT 04:53 PM EDT DISCLAIMER : THIS IS A VISIT SUMMARY EXTRACTED FROM THE [employer] CHART. IT IS NOT A COPY OF THE [employer] PROGRESS NOTE. MTDD
== END ==
LOC: M PAIN 11:15
PROVIDERS: ATTEND Anesthesiology
DX: M70.71 Other bursitis of hip, right hip (principal); M70.61 Trochanteric bursitis, right hip; I10 Essential (primary) hypertension; F41.9 Anxiety disorder, unspecified; F32.9 Major depressive disorder, single episode, unspecified; E03.9 Hypothyroidism, unspecified; E04.2 Nontoxic multinodular goiter; F10.11 Alcohol abuse, in remission; M81.0 Age-related osteoporosis without current pathological fracture; E78.5 Hyperlipidemia, unspecified; F34.1 Dysthymic disorder; M19.90 Unspecified osteoarthritis, unspecified site; F17.210 Nicotine dependence, cigarettes, uncomplicated; Z79.891 Long term (current) use of opiate analgesic; Z79.899 Other long term (current) drug therapy; Z88.1 Allergy status to other antibiotic agents; Z88.8 Allergy status to other drugs, medicaments and biological substances
CPT/HCPCS: 20610; 77002; J3301; Q9967

== ENCOUNTER → 2019-03-17 | Outpatient (REF) | payer MEDICARE ==
[2019-03-17 16:35] LABS: BLOOD UREA NITROGEN 10 MG/DL (7-18); CALCIUM LEVEL 10.2 MG/DL (8.8-10.2); CARBON DIOXIDE LEVEL 30 MEQ/L (21-32); CHLORIDE LEVEL 104 MEQ/L (98-107); GLOMERULAR FILTRATION RATE > 60.0 (>45); GLUCOSE, FASTING 105 MG/DL (70-100); POTASSIUM SERUM 4.6 MEQ/L (3.5-5.1); SODIUM LEVEL 141 MEQ/L (136-145)
== END ==
LOC: M LABSMT 12:07
PROVIDERS: ATTEND Nurse Practitioner Women's Health
DX: R31.29 Other microscopic hematuria (principal)

== ENCOUNTER → 2019-03-22 | Outpatient (CLI) | payer MEDICARE ==
[~2019-03-22] MED LIST changes: +ISOVUE-370 76% 100ML VIAL (Q9967) As Ordered ONE
--- NOTE | 2019-03-22 12:23 | REP ---
Clinical: Hematuria. Technique: Axial precontrast, contrast enhanced, and delayed images of the abdomen and pelvis using 100 ml Isovue 370 intravenous contrast material with coronal and sagittal re-formations at as well as CT MIP urogram. Comparison: 04/14/2017 Findings: Evaluation of the urinary tract system demonstrates normal bilateral kidneys, ureters and bladder. Symmetric renal enhancement is appreciated. Incidental subcentimeter right renal cyst along the posterior upper pole region (image 44). No nephroureterolithiasis or hydroureteronephrosis. Liver, spleen, pancreas, gallbladder, and bilateral adrenal glands are normal. The enteric system is without obstruction or acute inflammatory process. Normal terminal ileum and appendix are identified in the right lower quadrant. Sigmoid diverticula noted without acute diverticulitis. Pelvis demonstrates normal bladder and evidence for prior hysterectomy. No pelvic fluid or ascites. No free air. No adenopathy. Atherosclerotic changes to the aorta and vasculature noted without aneurysm or dissection. Small fat containing periumbilical hernia identified. Musculoskeletal structures demonstrate degenerative changes without focal osseous abnormality. Lung bases are clear. Impression: 1. Subcentimeter right renal cyst. Otherwise normal urinary tract system. 2. Scattered diverticula without acute diverticulitis. 3. No further acute abdominopelvic pathology appreciated. Electronically Signed by Umesh Gonzales MD 03/22/2019 12:15 P
== END ==
LOC: M RAD 10:53
PROVIDERS: ATTEND Nurse Practitioner Women's Health
DX: N28.1 Cyst of kidney, acquired (principal); K57.92 Diverticulitis of intestine, part unspecified, without perforation or abscess without bleeding
CPT/HCPCS: 74178; Q9967

== ENCOUNTER → 2019-04-06 | Outpatient (CLI) | payer MEDICARE ==
[~2019-04-06] MED LIST changes: -ISOVUE-370 76% 100ML VIAL (Q9967) As Ordered ONE; +MM S100C PO; -STOO100C PO
--- NOTE | 2019-04-12 02:16 | ECWPNPC ---
PATIENT NAME: FRED MICHELLE : 1950 GENDER: FEMALE VISIT DATE: 04/06/2019 DISCHARGE DATE: 04/06/19 1132 VISIT LOCKED DATE TIME: PHYSICIAN: EMILIA FARAH RESOURCE: EMILIA FARAH REASON FOR APPOINTMENT 1. POST PROC HISTORY OF PRESENT ILLNESS HISTORY OF PRESENT ILLNESS: PAIN THE PATIENT DESCRIBES THE PAIN... 68 YEAR OLD FEMALE IN FOR POST PROCEDURAL FOLLOW UP. SHE HAD AN INJECTION OF THE RIGHT ISCHIAL TUBEROSITY PERFORMED ON 03/14/19. WHEN ASKED SHE DOES REPORT THAT HER RADICULOPATHY HAS RESOLVED BUT THAT HER PAIN HAS SINCE RETURNED. SHE WOULD LIKE TO DISCUSS OTHER OPTIONS TO TREAT HER PAIN. SHE REPORTS HER PAIN AT 5/10 CURRENTLY. FALL RISK SCREENING: SCREENING :NO FALLS REPORTED IN THE LAST YEAR CURRENT MEDICATIONS TAKING VITAMIN D3 1000 UNIT CAPSULE 1 CAPSULE ORALLY BID, NOTES: 03/14/19 0700 TAKING CALCIUM + D3 600-200 MG-UNIT TABLET 1 TAB ORALLY BID, NOTES: 03/14/19 0600 TAKING MULTI FOR HER - TABLET 1 TAB ORALLY DAILY, NOTES: 03/14/19 07 TAKING CARVEDILOL 12.5 MG TABLET 1 TAB ORALLY TWICE A DAY, NOTES: 03/14/19 07 TAKING LISINOPRIL 40 MG TABLET 1 TABLET ORALLY ONCE A DAY, NOTES: 03/13/19 2200 TAKING AMLODIPINE BESYLATE 10 MG TABLET 1 TABLET ORALLY ONCE A DAY, NOTES: 03/14/19 0700 TAKING PROAIR HFA 108 (90 BASE) MCG/ACT AEROSOL SOLUTION 2 PUFFS NEEDED INHALATION EVERY 4-6 HRS, NOTES: A COUPLE WEEKS AGO TAKING TRAMADOL HCL 50 MG TABLET 1 TAB AM 2 TABS PM ORALLY EVERY 6 HRS PRN PAIN MDD=6, NOTES: 03/13/19 2200 TAKING CLONAZEPAM 1 MG TABLET 1 TAB ORALLY BID, NOTES: 03/14/19 0700 TAKING VENLAFAXINE HCL 100 MG TABLET 1.5 TABLET WITH FOOD ORALLY BID, NOTES: 03/14/19 0800 TAKING ZETIA 10MG TABLET TAKE 1 TABLET DAILY TAKING LEVOTHYROXINE SODIUM 25 MCG TABLET 1 TABLET ON AN EMPTY STOMACH IN THE MORNING ORALLY ONCE A DAY DISCONTINUED TRAMADOL HCL 50 MG TABLET 1 TABLET NEEDED ORALLY FOR PAIN EVERY 4 HOURS NEEDED MDD6 DISCONTINUED LISINOPRIL 40MG TABLET TAKE 1 TABLET DAILY DISCONTINUED GABAPENTIN 100 MG CAPSULE 1 CAPSULE ORALLY ONCE A DAY, NOTES: NOT TAKING DISCONTINUED PYRIDIUM 200 MG TABLET 1 TABLET AFTER MEALS ORALLY THREE TIMES A DAY DISCONTINUED PERCOCET 5-325 MG TABLET 1 TABLET NEEDED ORALLY Q8H PRN MDD3 DISCONTINUED CYCLOBENZAPRINE HCL 5 MG TABLET 1 TABLET NEEDED ORALLY THREE TIMES A DAY DISCONTINUED BACTRIM 400-80 MG TABLET 1 TABLET ORALLY BID DISCONTINUED OXYBUTYNIN CHLORIDE ER 10 MG TABLET EXTENDED RELEASE 24 HOUR 1 TABLET ORALLY ONCE A DAY DISCONTINUED NICOTINE 2 MG GUM 1 PIECE NEEDED MOUTH/THROAT 24 TIME(S) A DAY, NOTES: HAS NOT STARTED DISCONTINUED NICODERM CQ 14 MG/24HR PATCH 24 HOUR 1 PATCH TO SKIN TRANSDERMAL ONCE A DAY, NOTES: HAS NOT STARTED DISCONTINUED BENZONATATE 200 MG CAPSULE 1 CAPSULE ORALLY THREE TIMES A DAY NEEDED FOR COUGH DISCONTINUED BACTRIM DS 800-160 MG TABLET 1 TABLET ORALLY DIRECTED- 1 HOUR PRIOR TO CYSTOSCOPY MEDICATION LIST REVIEWED AND RECONCILED WITH THE PATIENT PAST MEDICAL HISTORY HTN (ETT 06/11 NEG), HAS SEEN CARDIOLOGY ANXIETY DEPRESSION HYPOTHYROID WITH 2 SMALL CYSTS HX OF C.DIFF TOBACCO ABUSE ETOH ABUSE IN REMISSION OSTEOPOROSIS ON 2017 DEXA, EVAL'D BY DR. RIOS ENDOCRINOLOGY RECOMMENDED BISPHOSPHANATES THYROID NODULES X 2, SUBCENTIMETER NO HISTORY OF BIOPSY HYPERLIPIDEMIA DYSTHYMIA OSTEOARTHRITIS ALLERGIES STATINS (FOR ALLERGY USE ONLY): ACHY, PAINFUL MUSCLES - ALLERGY MAGNESIUM: DIARRHEA - ALLERGY TRAZODONE HCL: MUSCLE ACHES - ALLERGY CYMBALTA: SEVERE STOMACH ACHE - SIDE EFFECTS PROZAC: NAUSEA/VOMITING - ALLERGY AUGMENTIN: DIARRHEA - SIDE EFFECTS GABAPENTIN: SEVERE STOMACH ACHE - SIDE EFFECTS SURGICAL HISTORY TONSILLECTOMY TUBAL LIGATION HYSTERECTOMY COLONOSCOPY/ENDOSCOPY TURBT 05/18/17 CYSTOSCOPY FAMILY HISTORY FATHER: , DIAGNOSED WITH CANCER MOTHER: , OTHER, HEART DISEASE PATERNAL GRAND FATHER: , CANCER PATERNAL GRAND MOTHER: , CANCER MATERNAL GRAND FATHER: , HEART DISEASE MATERNAL GRAND MOTHER: , CANCER 1 BROTHER(S) , 1 SISTER(S) . 1 SON(S) , 1 DAUGHTER(S) - HEALTHY. FATHER: SPINE CA\\\\\\\\\\\\\\\\\\\\\\\\\\\\\\\\\\\\\\\\\\\\\\\\\\\\\\\\\\\\\\\ NMOTHER: ALZHEIMERS\\\\\\\\\\\\\\\\\\\\\\\\\\\\\\\\\\\\\\\\\\\\\\\\\\\\\\\ \\\\\\\\NPATERNAL GF: BRAIN AND LUNG CA\\\\\\\\\\\\\\\\\\\\\\\\\\\\\\\\\\\\\\\\\\\\\\\\\\\\\\\\\\\\\\\ NPATERNAL GM: COLON CA\\\\\\\\\\\\\\\\\\\\\\\\\\\\\\\\\\\\\\\\\\\\\\\\\\\\\\\\\\\\\\\ NMATERNAL GM: [place] UNKNOWN\\\\\\\\\\\\\\\\\\\\\\\\\\\\\\\\\\\\\\\\\\\\\\\\\\\\\\\\\\ \\\\\NSISTER: ARTHRITIS\\\\\\\\\\\\\\\\\\\\\\\\\\\\\\\\\\\\\\\\\\\\\\\\\\\\\\\\ \\\\\\\NBROTHER: ()BRAIN AND LUNG CA. SOCIAL HISTORY GENERAL: TOBACCO USE ARE YOU A:CURRENT SMOKER ARE YOU INTERESTED IN QUITTING?NOT READY TO QUIT HAS CUT DOWN DRASTICALLY ON #/DAY, HAS PATCHES COUNSELED THE PATIENT ON SMOKING EFFECTS, EDUCATION [id number]/11/2019 HOW MANY CIGARETTES A DAY DO YOU SMOKE?5 OR LESS HOW SOON AFTER YOU WAKE UP DO YOU SMOKE YOUR FIRST CIGARETTE?31-60 MIN HOW OFTEN DO YOU SMOKE CIGARETTES?EVERY DAY PATIENT COUNSELED ON THE DANGERS OF TOBACCO USE AND URGED TO QUIT:04/06/2019 HIV / HEP-C SCREENING HIV TEST OFFERED TO PATIENT:YES DATE OFFERED:09/12/2018 TEST ACCEPTED:NO REASON:PATIENT DECLINED BROCHURE PROVIDED TO PATIENTYES HEP-C TEST OFFERED TO PATIENT:YES DATE OFFERED:09/12/2018 TEST ACCEPTED:NO REASON:PATIENT DECLINED OTHERS AT HOME: NONE. EDUCATION LEVEL OF EDUCATION:NOT FINISHED COLLEGE DIET: REGULAR. LANGUAGE LANGUAGES SPOKEN:CHADIAN DOMESTIC VIOLENCE DO YOU FEEL SAFE IN YOUR ENVIRONMENT?YES RECREATIONAL DRUG USE DRUG USE?NO EXERCISE: WALKS, SWIMS. LEARNING BARRIERS / SPECIAL NEEDS CHANGE FROM LAST VISIT?NO BARRIERS TO LEARNING?NO HEARING IMPAIRED?NO VISION IMPAIRED?YES :CORRECTIVE LENSES GLASSES COGNITIVELY IMPAIRED?NO READINESS TO LEARN?YES LEARNING PREFERENCES?NO LEARNING CAPABILITIES PRESENT?YES EMOTIONAL BARRIERS?NO SPECIAL DEVICES?NO COMPUTER EDUCATION PROFESSOR NEEDED?NO PAIN CLINIC PFS, CLERGY, PUBLIC HEALTH REFERRALS PFS REFERRAL NEEDED?NO CLERGY REFERRAL NEEDED?NO PUBLIC HEALTH REFERRAL NEEDED?NO HAS THE PATIENT BEEN EDUCATED REGARDING HIS/HER PLAN OF CARE?YES HAS THE PATIENT BEEN EDUCATED REGARDING PAIN, THE RISK FOR PAIN, THE IMPORTANCE OF EFFECTIVE PAIN MANAGEMENT, AND THE PAIN ASSESSMENT PROCESS?YES LATEX QUESTIONNAIRE LATEX ALLERGY : HAVE YOU EVER DEVELOPED ANY TYPE OF REACTION AFTER HANDLING LATEX PRODUCTS SUCH RUBBER GLOVES, CONDOMS, DIAPHRAGMS, BALLOONS, SOCKS, OR UNDERWEAR?NO LATEX ALLERGY : HAVE YOU EVER DEVELOPED ANY TYPE OF REACTION DURING OR AFTER DENTAL APPOINTMENT, VAGINAL/RECTAL EXAMINATION, SURGICAL PROCEDURE, OR ANY OTHER EXPOSURE?NO LATEX RISK : HAVE YOU EVER HAD ANY DIFFICULTY BREATHING OR HIVES AFTER EATING OR HANDLING ANY FRUITS, OR VEGETABLES; SUCH KIWI, BANANAS, STONE FRUITS, OR CHESTNUTSNO LATEX RISK : DO YOU HAVE A PREVIOUS PERSONAL HISTORY OF MORE THAN NINE SURGERIES, SPINA BIFIDA, OR REPEATED CATHERTIZATIONS? NO LATEX RISK : ARE YOU FREQUENTLY EXPOSED TO LATEX PRODUCTS IN YOUR OCCUPATION?YES DATE ASKED : 04/06/2019 CAFFEINE CAFFEINE USE?NO ADVANCE DIRECTIVE ADVANCE DIRECTIVE DISCUSSED WITH PATIENT:YES HCP IS DAUGHTER ROSY FOSTER [phone], COPY SCANNED IN DOCUMENTS [facility]IN [facility] STATUS: . ALCOHOL SCREENING DID YOU HAVE A DRINK CONTAINING ALCOHOL IN THE PAST YEAR?NO POINTS0 INTERPRETATIONNEGATIVE OCCUPATION: RETIRED. SEXUAL HX HAD SEX IN THE LAST 12 MONTHS (VAGINAL, ORAL, OR ANAL)?NO HAVE YOU EVER HAD AN STD?NO REVIEWED 08/22/18 NLREVIEWED [facility] PT 10/31/18 0905 BV12/12/18 REVIEWED WITH PT. ADREVIEWED WITH PT 01/24/19 1052 BVREVIEWED WITH PT 03/14/19 1245 LASREVEIWED WITH PT. 04/06/19 VD. HOSPITALIZATION/MAJOR DIAGNOSTIC PROCEDURE SEE SURGERIES FRACTURED PELVIS CHILDBIRTH REVIEW OF SYSTEMS REVIEWED BY: PROVIDER: PATRICIA DEWITT . CONSTITUTIONAL: ANY CHANGE IN YOUR MEDICAL CONDITION? NO . CHILLS NO . FEVER NO . INFECTION: DO YOU HAVE NEW INFECTIONS? NO . DO YOU HAVE HISTORY OF MRSA? NO . MUSCULOSKELETAL: ANY NEW PATTERNS OF PAIN OR NUMBNESS? NO . GASTROENTEROLOGY: ANY NEW CHANGE IN BOWEL CONTROL? NO . GENITOURINARY: ANY NEW CHANGE IN BLADDER CONTROL? NO . IS THERE A CHANCE YOU COULD BE ? NO . HEMATOLOGY/LYMPH: DO YOU TAKE ANY BLOOD THINNERS? (FOR EXAMPLE- COUMADIN, PLAVIX, AGGRENOX, PLATEL, PRADAXA, OR XARELTO) NO . WHEN WAS YOUR LAST DOSE? DATE: TIME: . NEUROLOGY: HAVE YOU FALLEN IN THE PAST 12 MONTHS? NO . ANY NEW EXTREMITY NUMBNESS OR WEAKNESS? NO . CARDIOLOGY: DO YOU HAVE A PACEMAKER OR DEFIBRILLATOR? NO . RESPIRATORY: HAVE YOU BEEN SICK IN THE PAST WEEK? NO . FEVER NO . FLU LIKE SYMPTOMS? NO . COUGH NO . INTEGUMENTARY: DO YOU HAVE ANY RASHES OR OPEN SORES? NO . ALLERGIC/IMMUNO: ARE YOU ALLERGIC TO IV DYE? NO . ANY NEW ALLERGIES? NO . PSYCHIATRIC: DO YOU HAVE THOUGHTS OF HURTING YOURSELF OR SOMEONE ELSE? NO . ARE YOU ABUSED, NEGLECTED, OR IN AN UNSAFE ENVIRONMENT? NO . ENDOCRINOLOGY: ARE YOU DIABETIC? NO . OTHER: DO YOU NEED ANY PRESCRIPTIONS? YES . IF YES, PLEASE LIST: _TRAMADOL___ . ANY NEW PROBLEMS WITH YOUR MEDICATIONS? NO . WHEN DID YOU LAST EAT? ____N/A . WHEN DID YOU LAST DRINK? ____N/A . WHAT DID YOU LAST DRINK? ____N/A . NAME OF PERSON DRIVING YOU HOME? ____N/A . DO YOU HAVE ANY OTHER QUESTIONS OR CONCERNS NO . VITAL SIGNS WT 164.2 LBS, HT 62.5 IN, BMI 29.55 INDEX, BP 109/68 MM HG, HR 90 /MIN, RR 18 /MIN, TEMP 98.0 F, OXYGEN SAT % 94%, SAFE IN ENV? (Y/N) YES, NA INITIALS NE 10:21, REVIEWED BY: RODRICK. EXAMINATION GENERAL EXAMINATION: GENERALNO ACUTE DISTRESS, WELL NOURISHED AND HYDRATED. PSYCHAPPROPRIATE MOOD AND AFFECT . LUNGS:CLEAR TO AUSCULTATION BILATERALLY, NO WHEEZES, RHONCHI, RALES. HEART:NO MURMURS, REGULAR RATE AND RHYTHM. BACK:POINT TENDER RIGHT SIJ. NEGATIVE JESSICA'S TEST. DENIES INCREASED PAIN WITH FACET LOADING . ASSESSMENTS SPONDYLOSIS OF LUMBOSACRAL REGION WITHOUT MYELOPATHY OR RADICULOPATHY - M47.817 TREATMENT SPONDYLOSIS OF LUMBOSACRAL REGION WITHOUT MYELOPATHY OR RADICULOPATHY NOTES: SIJ OF THE RIGHT SIDE. CLINICAL NOTES: 68 YEAR OLD FEMALE IN FOR CHRONIC PAIN FOLLOW UP. GIVEN PRESENTING SYMPTOMS AND RESULTS OF PHYSICAL EXAMINATION RECOMMENDED RIGHT SIJ. PATIENT HAS EXPRESSED UNDERSTANDING OF AND WAS IN AGREEMENT WITH TX PLAN. GIVEN TIME TO ASK QUESTIONS AND EXPRESS CONCERNS. . PROCEDURE CODES [id number] ESTABILISHED PATIENT [facility] FACILITY CHARGE DISPOSITION & COMMUNICATION FOLLOW UP POST PROCEDURE (REASON: RIGHT SIDED SIJ ) ELECTRONICALLY SIGNED BY YULISA GARIBAY ON 04/11/2019 AT 09:00 AM EDT DISCLAIMER : THIS IS A VISIT SUMMARY EXTRACTED FROM THE [employer] CHART. IT IS NOT A COPY OF THE [employer] PROGRESS NOTE. TRACEY
== END ==
LOC: M PAIN 10:00
PROVIDERS: ATTEND Family Medicine
DX: M47.817 Spondylosis without myelopathy or radiculopathy, lumbosacral region (principal); I10 Essential (primary) hypertension; F41.9 Anxiety disorder, unspecified; F34.1 Dysthymic disorder; E03.9 Hypothyroidism, unspecified; E04.2 Nontoxic multinodular goiter; F10.11 Alcohol abuse, in remission; M81.0 Age-related osteoporosis without current pathological fracture; E78.5 Hyperlipidemia, unspecified; M19.90 Unspecified osteoarthritis, unspecified site; F17.210 Nicotine dependence, cigarettes, uncomplicated; Z79.899 Other long term (current) drug therapy; Z88.1 Allergy status to other antibiotic agents; Z88.8 Allergy status to other drugs, medicaments and biological substances; Z79.891 Long term (current) use of opiate analgesic

== ENCOUNTER → 2019-05-23 | Outpatient (CLI) | payer MEDICARE ==
[~2019-05-23] MED LIST changes: +BUPIVACAINE HCL 0.25% 30 ML VIAL As Ordered ONE; +CLON0.5T2 PO; -CLON0.5T8 PO; +ISOVUE-M 200 41% 20ML VIAL (Q9966) As Ordered ONE; +LIDOCAINE 1% SDV INJ 30 ML VIAL As Ordered ONE; +TRIAMCINOLONE ACETONIDE SUSP 40 MG/ML VIAL (J3301) As Ordered ONE; +ZETI10TA16 PO; -ZETI10TA30 PO; +diazePAM 5 MG TAB As Ordered ONE; +oxyCODONE 5MG TAB As Ordered ONE
--- NOTE | 2019-05-23 18:47 | REP ---
C-ARM VIEWS SACROILIAC JOINTS: Clinical history: Pain. Seven C-Arm views of the sacroiliac joints performed during sacroiliac joint injection by Dr. Arita. 20 seconds fluoroscopy time utilized. Electronically Signed by Larry Cho MD 05/24/2019 12:20 A
--- NOTE | 2019-05-27 00:10 | ECWPNPC ---
PATIENT NAME: FRED MICHELLE : 1950 GENDER: FEMALE VISIT DATE: 05/23/2019 DISCHARGE DATE: 05/23/19 1059 VISIT LOCKED DATE TIME: PHYSICIAN: POOJA KENNEY MD RESOURCE: POOJA KENNEY MD REASON FOR APPOINTMENT 1. BILATERAL SIJ HISTORY OF PRESENT ILLNESS HISTORY OF PRESENT ILLNESS: PAIN THE PATIENT DESCRIBES THE PAIN... FALL RISK SCREENING: SCREENING :NO FALLS REPORTED IN THE LAST YEAR CURRENT MEDICATIONS TAKING VITAMIN D3 1000 UNIT CAPSULE 1 CAPSULE ORALLY BID TAKING CALCIUM + D3 600-200 MG-UNIT TABLET 1 TAB ORALLY BID TAKING MULTI FOR HER - TABLET 1 TAB ORALLY DAILY TAKING PROAIR HFA 108 (90 BASE) MCG/ACT AEROSOL SOLUTION 2 PUFFS NEEDED INHALATION EVERY 4-6 HRS TAKING VENLAFAXINE HCL 100 MG TABLET 1.5 TABLET WITH FOOD ORALLY BID TAKING ZETIA 10MG TABLET TAKE 1 TABLET DAILY TAKING LEVOTHYROXINE SODIUM 25 MCG TABLET 1 TABLET ON AN EMPTY STOMACH IN THE MORNING ORALLY ONCE A DAY TAKING TRAMADOL HCL 50 MG TABLET 1 TAB AM 2 TABS PM ORALLY EVERY 6 HRS PRN PAIN MDD=6 TAKING CLONAZEPAM 1 MG TABLET 1 TAB ORALLY BID TAKING CARVEDILOL 12.5 MG TABLET 1 TAB ORALLY TWICE A DAY TAKING AMLODIPINE BESYLATE 10 MG TABLET 1 TABLET ORALLY ONCE A DAY TAKING LISINOPRIL 40 MG TABLET 1 TABLET ORALLY ONCE A DAY MEDICATION LIST REVIEWED AND RECONCILED WITH THE PATIENT PAST MEDICAL HISTORY HTN (ETT 06/11 NEG), HAS SEEN CARDIOLOGY ANXIETY DEPRESSION HYPOTHYROID WITH 2 SMALL CYSTS HX OF C.DIFF TOBACCO ABUSE ETOH ABUSE IN REMISSION OSTEOPOROSIS ON 2018 DEXA, EVAL'D BY DR. RIOS ENDOCRINOLOGY RECOMMENDED BISPHOSPHANATES THYROID NODULES X 2, SUBCENTIMETER NO HISTORY OF BIOPSY HYPERLIPIDEMIA DYSTHYMIA OSTEOARTHRITIS ALLERGIES STATINS (FOR ALLERGY USE ONLY): ACHY, PAINFUL MUSCLES - ALLERGY MAGNESIUM: DIARRHEA - ALLERGY TRAZODONE HCL: MUSCLE ACHES - ALLERGY CYMBALTA: SEVERE STOMACH ACHE - SIDE EFFECTS PROZAC: NAUSEA/VOMITING - ALLERGY AUGMENTIN: DIARRHEA - SIDE EFFECTS GABAPENTIN: SEVERE STOMACH ACHE - SIDE EFFECTS SURGICAL HISTORY TONSILLECTOMY TUBAL LIGATION HYSTERECTOMY COLONOSCOPY/ENDOSCOPY TURBT 05/18/17 CYSTOSCOPY FAMILY HISTORY FATHER: , DIAGNOSED WITH CANCER MOTHER: , OTHER, HEART DISEASE PATERNAL GRAND FATHER: , CANCER PATERNAL GRAND MOTHER: , CANCER MATERNAL GRAND FATHER: , HEART DISEASE MATERNAL GRAND MOTHER: , CANCER 1 BROTHER(S) , 1 SISTER(S) . 1 SON(S) , 1 DAUGHTER(S) - HEALTHY. FATHER: SPINE CA\\\\\\\\\\\\\\\\\\\\\\\\\\\\\\\\\\\\\\\\\\\\\\\\\\\\\\\\\\\\\\\ NMOTHER: ALZHEIMERS\\\\\\\\\\\\\\\\\\\\\\\\\\\\\\\\\\\\\\\\\\\\\\\\\\\\\\\ \\\\\\\\NPATERNAL GF: BRAIN AND LUNG CA\\\\\\\\\\\\\\\\\\\\\\\\\\\\\\\\\\\\\\\\\\\\\\\\\\\\\\\\\\\\\\\ NPATERNAL GM: COLON CA\\\\\\\\\\\\\\\\\\\\\\\\\\\\\\\\\\\\\\\\\\\\\\\\\\\\\\\\\\\\\\\ NMATERNAL GM: [place] UNKNOWN\\\\\\\\\\\\\\\\\\\\\\\\\\\\\\\\\\\\\\\\\\\\\\\\\\\\\\\\\\ \\\\\NSISTER: ARTHRITIS\\\\\\\\\\\\\\\\\\\\\\\\\\\\\\\\\\\\\\\\\\\\\\\\\\\\\\\\ \\\\\\\NBROTHER: ()BRAIN AND LUNG CA. SOCIAL HISTORY GENERAL: TOBACCO USE ARE YOU A:CURRENT SMOKER ARE YOU INTERESTED IN QUITTING?NOT READY TO QUIT HAS CUT DOWN DRASTICALLY ON #/DAY, HAS PATCHES COUNSELED THE PATIENT ON SMOKING EFFECTS, EDUCATION [id number]/27/2019 HOW MANY CIGARETTES A DAY DO YOU SMOKE?5 OR LESS HOW SOON AFTER YOU WAKE UP DO YOU SMOKE YOUR FIRST CIGARETTE?31-60 MIN HOW OFTEN DO YOU SMOKE CIGARETTES?EVERY DAY PATIENT COUNSELED ON THE DANGERS OF TOBACCO USE AND URGED TO QUIT:04/06/2019 HIV / HEP-C SCREENING HIV TEST OFFERED TO PATIENT:YES DATE OFFERED:09/12/2018 TEST ACCEPTED:NO REASON:PATIENT DECLINED BROCHURE PROVIDED TO PATIENTYES HEP-C TEST OFFERED TO PATIENT:YES DATE OFFERED:09/12/2018 TEST ACCEPTED:NO REASON:PATIENT DECLINED OTHERS AT HOME: NONE. EDUCATION LEVEL OF EDUCATION:NOT FINISHED COLLEGE DIET: REGULAR. LANGUAGE LANGUAGES SPOKEN:SLOVENIAN DOMESTIC VIOLENCE DO YOU FEEL SAFE IN YOUR ENVIRONMENT?YES RECREATIONAL DRUG USE DRUG USE?NO EXERCISE: WALKS, SWIMS. LEARNING BARRIERS / SPECIAL NEEDS CHANGE FROM LAST VISIT?NO BARRIERS TO LEARNING?NO HEARING IMPAIRED?NO VISION IMPAIRED?YES :CORRECTIVE LENSES GLASSES COGNITIVELY IMPAIRED?NO READINESS TO LEARN?YES LEARNING PREFERENCES?NO LEARNING CAPABILITIES PRESENT?YES EMOTIONAL BARRIERS?NO SPECIAL DEVICES?NO PERSONNEL PLACEMENT SPECIALIST NEEDED?NO PAIN CLINIC PFS, CLERGY, PUBLIC HEALTH REFERRALS PFS REFERRAL NEEDED?NO CLERGY REFERRAL NEEDED?NO PUBLIC HEALTH REFERRAL NEEDED?NO HAS THE PATIENT BEEN EDUCATED REGARDING HIS/HER PLAN OF CARE?YES HAS THE PATIENT BEEN EDUCATED REGARDING PAIN, THE RISK FOR PAIN, THE IMPORTANCE OF EFFECTIVE PAIN MANAGEMENT, AND THE PAIN ASSESSMENT PROCESS?YES LATEX QUESTIONNAIRE LATEX ALLERGY : HAVE YOU EVER DEVELOPED ANY TYPE OF REACTION AFTER HANDLING LATEX PRODUCTS SUCH RUBBER GLOVES, CONDOMS, DIAPHRAGMS, BALLOONS, SOCKS, OR UNDERWEAR?NO LATEX ALLERGY : HAVE YOU EVER DEVELOPED ANY TYPE OF REACTION DURING OR AFTER DENTAL APPOINTMENT, VAGINAL/RECTAL EXAMINATION, SURGICAL PROCEDURE, OR ANY OTHER EXPOSURE?NO LATEX RISK : HAVE YOU EVER HAD ANY DIFFICULTY BREATHING OR HIVES AFTER EATING OR HANDLING ANY FRUITS, OR VEGETABLES; SUCH KIWI, BANANAS, STONE FRUITS, OR CHESTNUTSNO LATEX RISK : DO YOU HAVE A PREVIOUS PERSONAL HISTORY OF MORE THAN NINE SURGERIES, SPINA BIFIDA, OR REPEATED CATHERIZATIONS? NO LATEX RISK : ARE YOU FREQUENTLY EXPOSED TO LATEX PRODUCTS IN YOUR OCCUPATION?YES DATE ASKED : 04/27/2019 CAFFEINE CAFFEINE USE?NO ADVANCE DIRECTIVE ADVANCE DIRECTIVE DISCUSSED WITH PATIENT:YES HCP IS DAUGHTER ROSY FOSTER [phone], COPY SCANNED IN DOCUMENTS ZOROASTRIANISM [id number] YAZIDISM MARITAL STATUS: . ALCOHOL SCREENING DID YOU HAVE A DRINK CONTAINING ALCOHOL IN THE PAST YEAR?NO POINTS0 INTERPRETATIONNEGATIVE OCCUPATION: RETIRED. SEXUAL HX HAD SEX IN THE LAST 12 MONTHS (VAGINAL, ORAL, OR ANAL)?NO HAVE YOU EVER HAD AN STD?NO REVIEWED 08/22/18 NLREVIEWED [facility] PT 10/31/18 0905 BV12/12/18 REVIEWED WITH PT. ADREVIEWED WITH PT 01/24/19 1052 BVREVIEWED WITH PT 03/14/19 1245 LASREVEIWED WITH PT. 04/06/19 VD. HOSPITALIZATION/MAJOR DIAGNOSTIC PROCEDURE SEE SURGERIES FRACTURED PELVIS CHILDBIRTH REVIEW OF SYSTEMS REVIEWED BY: PROVIDER: . CONSTITUTIONAL: ANY CHANGE IN YOUR MEDICAL CONDITION? NO . CHILLS NO . FEVER NO . INFECTION: DO YOU HAVE NEW INFECTIONS? NO . DO YOU HAVE HISTORY OF MRSA? NO . MUSCULOSKELETAL: ANY NEW PATTERNS OF PAIN OR NUMBNESS? NO . GASTROENTEROLOGY: ANY NEW CHANGE IN BOWEL CONTROL? NO . GENITOURINARY: ANY NEW CHANGE IN BLADDER CONTROL? NO . IS THERE A CHANCE YOU COULD BE ? NO . HEMATOLOGY/LYMPH: DO YOU TAKE ANY BLOOD THINNERS? (FOR EXAMPLE- COUMADIN, PLAVIX, AGGRENOX, PLATEL, PRADAXA, OR XARELTO) NO . WHEN WAS YOUR LAST DOSE? DATE: TIME: . NEUROLOGY: HAVE YOU FALLEN IN THE PAST 12 MONTHS? YES, PRIOR TO LAST VISIT . ANY NEW EXTREMITY NUMBNESS OR WEAKNESS? NO . CARDIOLOGY: DO YOU HAVE A PACEMAKER OR DEFIBRILLATOR? NO . RESPIRATORY: HAVE YOU BEEN SICK IN THE PAST WEEK? NO . FEVER NO . FLU LIKE SYMPTOMS? NO . COUGH NO . INTEGUMENTARY: DO YOU HAVE ANY RASHES OR OPEN SORES? NO . ALLERGIC/IMMUNO: ARE YOU ALLERGIC TO IV DYE? NO . ANY NEW ALLERGIES? NO . PSYCHIATRIC: DO YOU HAVE THOUGHTS OF HURTING YOURSELF OR SOMEONE ELSE? NO . ARE YOU ABUSED, NEGLECTED, OR IN AN UNSAFE ENVIRONMENT? NO . ENDOCRINOLOGY: ARE YOU DIABETIC? NO . OTHER: DO YOU NEED ANY PRESCRIPTIONS? NO . IF YES, PLEASE LIST: ____ . ANY NEW PROBLEMS WITH YOUR MEDICATIONS? NO . WHEN DID YOU LAST EAT? 05/22/19 2300 . WHEN DID YOU LAST DRINK? 05/23/19 0000 . WHAT DID YOU LAST DRINK? WATER . NAME OF PERSON DRIVING YOU HOME? YELLOW CAB . DO YOU HAVE ANY OTHER QUESTIONS OR CONCERNS NO . VITAL SIGNS WT 165 LBS, HT 62.5 IN, BMI 29.69 INDEX, BP 131/78 MM HG, HR 87 /MIN, RR 18 /MIN, TEMP 98.5 F, OXYGEN SAT % 93%, NA INITIALS SC 09:03, REVIEWED BY: EM. ASSESSMENTS SACROILIITIS, NOT ELSEWHERE CLASSIFIED - M46.1 (PRIMARY) TREATMENT SACROILIITIS, NOT ELSEWHERE CLASSIFIED [facility] FLUORO GUIDE SPINE INJECTION (PAIN)[id number] PROCEDURES PN SI PRE PROCEDURE DIAGNOSIS SACROILIITIS, SACROILIAC JOINT DYSFUNCTION POST PROCEDURE DIAGNOSIS SACROILIITIS, SACROILIAC JOINT DYSFUNCTION PROCEDURE BILATERAL SACROILIAC JOINT BLOCK SURGEON DR. POOJA KENNEY SCRAP BALLER NONE ANESTHESIA LOCAL PRE PROCEDURE NOTE PATIENT WITH HISTORY OF CHRONIC LOW BACK PAIN. I EVALUATED THE PATIENT AND REVIEWED THE CHART. I WENT OVER THE RISKS, ALTERNATIVES, AND BENEFITS ASSOCIATED WITH THIS PROCEDURE. THE PATIENT WOULD LIKE TO PROCEED AND GAVE CONSENT TO PERFORM THE PROCEDURE. THE PATIENT DENIES UNEXPLAINABLE WEIGHT LOSS, FEVER, CHILLS, OR NEW CHANGES IN URINARY OR BOWEL CONTROL DESCRIPTION OF PROCEDURE THE PATIENT WAS BROUGHT TO THE PROCEDURE ROOM AND PLACED IN THE PRONE POSITION. THE LUMBOSACRAL AREA WAS CLEANED WITH CHLORAPREP SOLUTION AND DRAPED ASEPTICALLY. THE PROCEDURE WAS DONE UNDER STERILE CONDITIONS. I CHECKED LATERALITY AND THE LEVEL WHERE THE PROCEDURE WAS GOING TO BE PERFORMED WITH THE PATIENT AND THE SUPPORTING STAFF AT THE MOMENT OF THE TIME OUT IN THE PROCEDURE ROOM. UNDER FLUOROSCOPIC GUIDANCE, TARGET POINT WAS SELECTED AT THE LOWER BORDER OF THE RIGHT AND LEFT SACROILIAC JOINT. TARGET POINT WAS SELECTED AFTER MEDIAL ROTATION AND TILT OF THE MAGNIFIER OF THE C-ARM. LIDOCAINE WAS USED TO NUMB THE SKIN AND SUBCUTANEOUS TISSUE BELOW IT. A SPINAL NEEDLE, 22-GAUGE, WAS ADVANCED UNDER FLUOROSCOPIC GUIDANCE AND FOLLOWING PATIENT FEEDBACK UNTIL THE TARGET AREA WAS TOUCHED. THE POSITION OF THE NEEDLE WAS VERIFIED WITH AP AND LATERAL VIEWS. AFTER PROPER POSITION OF THE NEEDLE WAS ACHIEVED, ISOVUE M-200 CONTRAST WAS INJECTED SHOWING SPREAD OF THE DYE. THEN, A SOLUTION OF 30 MG OF KENALOG WAS INJECTED IN RIGHT AND LEFT JOINT WITH 3 ML OF BUPIVACAINE 0.125%. THERE WAS NO EVIDENCE OF BLOOD, PARESTHESIA OR CEREBROSPINAL FLUID DURING THE PROCEDURE. THE PATIENT WAS SENT TO THE RECOVERY ROOM. THE PATIENT WAS MOVING THE EXTREMITIES AND DOING WELL. THERE WAS NO COMPLICATION DURING THE PROCEDURE. FLUOROSCOPY TIME WAS 20 SECONDS POST PROCEDURE NOTE THE PATIENT WILL BE SEEN IN A FOLLOW UP IN THE NEXT FEW WEEKS. INSTRUCTIONS WERE GIVEN, QUESTIONS WERE ANSWERED, AND THE PATIENT EXPRESSED UNDERSTANDING AND AGREED WITH THE PLAN. I, KIMBERLEE WHITTEN, DOCUMENTED THE ABOVE INFORMATION ACTING A SCRIBE FOR DR. KENNEY. I HAVE REVIEWED THE ABOVE DOCUMENT, WRITTEN BY KIMBERLEE LIEBERMANIBCarolyn AND I VERIFY THAT IT IS ACCURATE. PROCEDURE CODES 90687 INJECT SACROILIAC JOINT, MODIFIERS: [id number] RADXPS IN END [id number] PXD DISPOSITION & COMMUNICATION FOLLOW UP 3 WEEKS ELECTRONICALLY SIGNED BY POOJA KENNEY MD, MD ON 05/26/2019 AT 04:58 PM EDT DISCLAIMER : THIS IS A VISIT SUMMARY EXTRACTED FROM THE [employer] CHART. IT IS NOT A COPY OF THE [employer] PROGRESS NOTE. MTDD
== END ==
LOC: M PAIN 09:00
PROVIDERS: ATTEND Anesthesiology
DX: M46.1 Sacroiliitis, not elsewhere classified (principal); I10 Essential (primary) hypertension; E03.9 Hypothyroidism, unspecified; F17.210 Nicotine dependence, cigarettes, uncomplicated; Z79.891 Long term (current) use of opiate analgesic; Z79.899 Other long term (current) drug therapy; Z88.8 Allergy status to other drugs, medicaments and biological substances
CPT/HCPCS: G0260; J3301; Q9966

== ENCOUNTER → 2019-06-06 | Outpatient (REF) | payer MEDICARE ==
[~2019-06-06] MED LIST changes: -BUPIVACAINE HCL 0.25% 30 ML VIAL As Ordered ONE; -ISOVUE-M 200 41% 20ML VIAL (Q9966) As Ordered ONE; -LIDOCAINE 1% SDV INJ 30 ML VIAL As Ordered ONE; -TRIAMCINOLONE ACETONIDE SUSP 40 MG/ML VIAL (J3301) As Ordered ONE; -diazePAM 5 MG TAB As Ordered ONE; -oxyCODONE 5MG TAB As Ordered ONE
[2019-06-06 12:34] LABS: BASO # 0.1 10^3/uL (0.0-0.2); BASO % 0.9 % (0.0-1.0); EOS # 0.2 10^3/uL (0.0-0.5); HEMATOCRIT 40.7 % (36.0-47.0); HEMOGLOBIN 13.6 g/dl (12.0-15.5); LYMPH # 2.4 10^3/uL (1.5-5.0); LYMPH % 21.3 % (24.0-44.0); MEAN CORPUSCULAR HEMOGLOBIN 35.3 pg (27.0-33.0); MEAN CORPUSCULAR HGB CONC 33.4 g/dl (32.0-36.5); MEAN CORPUSCULAR VOLUME 105.7 fl (80.0-96.0); MONO # 0.9 10^3/uL (0.0-0.8); MONO % 8.2 % (0.0-5.0); NEUTROPHILS # 7.5 10^3/uL (1.5-8.5); NEUTROPHILS % 67.3 % (36.0-66.0); PLATELET COUNT, AUTOMATED 394 10^3/uL (150-450); RED BLOOD COUNT 3.85 10^6/uL (4.00-5.40); WHITE BLOOD COUNT 11.1 10^3/uL (4.0-10.0)
[2019-06-06 12:52] LABS: ALBUMIN 3.9 GM/DL (3.2-5.2); ALT/SGPT 27 U/L (12-78); BILIRUBIN,TOTAL 0.3 MG/DL (0.2-1.0); BLOOD UREA NITROGEN 14 MG/DL (7-18); CARBON DIOXIDE LEVEL 30 MEQ/L (21-32); CHLORIDE LEVEL 101 MEQ/L (98-107); CHOLESTEROL LEVEL 189 MG/DL (<200); CHOLESTEROL RISK RATIO 3.203 (<5); CREATININE FOR GFR 0.74 MG/DL (0.55-1.30); GLOMERULAR FILTRATION RATE > 60.0 (>45); GLUCOSE, FASTING 101 MG/DL (70-100); HDL CHOLESTEROL 59 MG/DL (>40); LDL CHOLESTEROL 95 MG/DL (<100); NON-HDL-C 130 MG/DL; POTASSIUM SERUM 4.8 MEQ/L (3.5-5.1); SODIUM LEVEL 139 MEQ/L (136-145); TOTAL 25(OH) VITAMIN D 51.2 NG/ML (30.0-100.0); TOTAL PROTEIN 7.1 GM/DL (6.4-8.2); TRIGLYCERIDES LEVEL 174 MG/DL (<150)
== END ==
LOC: M SFHCLERA 07:57
PROVIDERS: ATTEND Family Medicine
DX: E55.9 Vitamin D deficiency, unspecified (principal); E78.5 Hyperlipidemia, unspecified; E03.9 Hypothyroidism, unspecified; I10 Essential (primary) hypertension; F34.1 Dysthymic disorder
CPT/HCPCS: 80053; 80061; 82306; 84443; 85025; 90834; G0463

== ENCOUNTER → 2019-06-13 | Outpatient (CLI) | payer MEDICARE ==
--- NOTE | 2019-06-15 01:12 | ECWPNPC ---
PATIENT NAME: FRED MICHELLE : 1950 GENDER: FEMALE VISIT DATE: 06/13/2019 DISCHARGE DATE: 06/13/19 1103 VISIT LOCKED DATE TIME: PHYSICIAN: EMILIA FARAH RESOURCE: EMILIA FARAH REASON FOR APPOINTMENT 1. POST PROC HISTORY OF PRESENT ILLNESS HISTORY OF PRESENT ILLNESS: PAIN THE PATIENT DESCRIBES THE PAIN... 69-YEAR-OLD FEMALE IN FOR POST BILATERAL SIJ FOLLOW-UP. SHE FEELS THE PROCEDURE HAS BEEN HELPFUL SHE RATED HER PAIN PREPROCEDURE AT A 10 OUT OF 10 AND POSTPROCEDURE AT A 3 OUT OF 10. SHE DOES ADMIT THAT SOME DAYS ARE WORSE THAN OTHERS. HER PAIN CURRENTLY IS RATED AT A 4 OUT OF 10 AND DESCRIBES IT SHARP, STABBING, AND SHOOTING. FALL RISK SCREENING: SCREENING :NO FALLS REPORTED IN THE LAST YEAR CURRENT MEDICATIONS TAKING MULTI FOR HER - TABLET 1 TAB ORALLY DAILY TAKING PROAIR HFA 108 (90 BASE) MCG/ACT AEROSOL SOLUTION 2 PUFFS NEEDED INHALATION EVERY 4-6 HRS TAKING TRAMADOL HCL 50 MG TABLET 2 TABS AM 2 TABS PM ORALLY EVERY 6 HRS PRN PAIN MDD=6 TAKING CLONAZEPAM 1 MG TABLET CODE A: 1 TAB ORALLY BID TAKING VITAMIN D3 1000 UNIT CAPSULE 1 CAPSULE ORALLY BID TAKING CALCIUM + D3 600-200 MG-UNIT TABLET 1 TAB ORALLY BID TAKING ZETIA 10MG TABLET TAKE 1 TABLET DAILY TAKING VENLAFAXINE HCL 100 MG TABLET 1.5 TABLET WITH FOOD ORALLY BID TAKING LEVOTHYROXINE SODIUM 25 MCG TABLET 1 TABLET ON AN EMPTY STOMACH IN THE MORNING ORALLY ONCE A DAY TAKING LISINOPRIL 40 MG TABLET 1 TABLET ORALLY ONCE A DAY TAKING CARVEDILOL 12.5 MG TABLET 1 TAB ORALLY TWICE A DAY TAKING AMLODIPINE BESYLATE 5 MG TABLET 1 TABLET ORALLY ONCE A DAY, NOTES: DOSE REDUCTION NOT-TAKING SENNA LAX 8.6 MG TABLET 2 TABLETS AT BEDTIME NEEDED ORALLY ONCE A DAY MEDICATION LIST REVIEWED AND RECONCILED WITH THE PATIENT PAST MEDICAL HISTORY HTN (ETT 06/11 NEG), HAS SEEN CARDIOLOGY ANXIETY DEPRESSION HYPOTHYROID WITH 2 SMALL CYSTS HX OF C.DIFF TOBACCO ABUSE ETOH ABUSE IN REMISSION OSTEOPOROSIS ON 2018 DEXA, EVAL'D BY DR. RIOS ENDOCRINOLOGY RECOMMENDED BISPHOSPHANATES THYROID NODULES X 2, SUBCENTIMETER NO HISTORY OF BIOPSY HYPERLIPIDEMIA DYSTHYMIA OSTEOARTHRITIS ALLERGIES STATINS (FOR ALLERGY USE ONLY): ACHY, PAINFUL MUSCLES - ALLERGY MAGNESIUM: DIARRHEA - ALLERGY TRAZODONE HCL: MUSCLE ACHES - ALLERGY CYMBALTA: SEVERE STOMACH ACHE - SIDE EFFECTS PROZAC: NAUSEA/VOMITING - ALLERGY AUGMENTIN: DIARRHEA - SIDE EFFECTS GABAPENTIN: SEVERE STOMACH ACHE - SIDE EFFECTS SURGICAL HISTORY TONSILLECTOMY TUBAL LIGATION HYSTERECTOMY COLONOSCOPY/ENDOSCOPY TURBT 05/18/17 CYSTOSCOPY FAMILY HISTORY FATHER: , DIAGNOSED WITH OTHER MALIGNANT NEOPLASM OF UNSPECIFIED SITE MOTHER: , UNSPECIFIED HEART DISEASE, OTHER SPECIFIED CONDITIONS INFLUENCING HEALTH STATUS PATERNAL GRAND FATHER: , OTHER MALIGNANT NEOPLASM OF UNSPECIFIED SITE PATERNAL GRAND MOTHER: , OTHER MALIGNANT NEOPLASM OF UNSPECIFIED SITE MATERNAL GRAND FATHER: , UNSPECIFIED HEART DISEASE MATERNAL GRAND MOTHER: , OTHER MALIGNANT NEOPLASM OF UNSPECIFIED SITE 1 BROTHER(S) , 1 SISTER(S) . 1 SON(S) , 1 DAUGHTER(S) - HEALTHY. FATHER: SPINE CA\\\\\\\\\\\\\\\\\\\\\\\\\\\\\\\\\\\\\\\\\\\\\\\\\\\\\\\\\\\\\\\ NMOTHER: ALZHEIMERS\\\\\\\\\\\\\\\\\\\\\\\\\\\\\\\\\\\\\\\\\\\\\\\\\\\\\\\ \\\\\\\\NPATERNAL GF: BRAIN AND LUNG CA\\\\\\\\\\\\\\\\\\\\\\\\\\\\\\\\\\\\\\\\\\\\\\\\\\\\\\\\\\\\\\\ NPATERNAL GM: COLON CA\\\\\\\\\\\\\\\\\\\\\\\\\\\\\\\\\\\\\\\\\\\\\\\\\\\\\\\\\\\\\\\ NMATERNAL GM: CA UNKNOWN\\\\\\\\\\\\\\\\\\\\\\\\\\\\\\\\\\\\\\\\\\\\\\\\\\\\\\\\\\ \\\\\NSISTER: ARTHRITIS\\\\\\\\\\\\\\\\\\\\\\\\\\\\\\\\\\\\\\\\\\\\\\\\\\\\\\\\ \\\\\\\NBROTHER: ()BRAIN AND LUNG CA. SOCIAL HISTORY GENERAL: TOBACCO USE ARE YOU A:CURRENT SMOKER ARE YOU INTERESTED IN QUITTING?NOT READY TO QUIT COUNSELED THE PATIENT ON SMOKING EFFECTS, EDUCATION [id number]/10/2019 HOW MANY CIGARETTES A DAY DO YOU SMOKE?6-10 HOW SOON AFTER YOU WAKE UP DO YOU SMOKE YOUR FIRST CIGARETTE?31-60 MIN HOW OFTEN DO YOU SMOKE CIGARETTES?EVERY DAY PATIENT COUNSELED ON THE DANGERS OF TOBACCO USE AND URGED TO QUIT:06/06/2019 SMOKING CESSATION INFORMATION GIVEN06/13/2019 HIV / HEP-C SCREENING HIV TEST OFFERED TO PATIENT:YES DATE OFFERED:09/12/2018 TEST ACCEPTED:NO HEP-C TEST OFFERED TO PATIENT:YES DATE OFFERED:09/12/2018 REASON:PATIENT DECLINED TEST ACCEPTED:NO REASON:PATIENT DECLINED BROCHURE PROVIDED TO PATIENTYES OTHERS AT HOME: NONE. EDUCATION LEVEL OF EDUCATION:NOT FINISHED COLLEGE DIET: REGULAR. LANGUAGE LANGUAGES SPOKEN:ANGUILLAN DOMESTIC VIOLENCE DO YOU FEEL SAFE IN YOUR ENVIRONMENT?YES RECREATIONAL DRUG USE DRUG USE?NO EXERCISE: WALKS, SWIMS. LEARNING BARRIERS / SPECIAL NEEDS CHANGE FROM LAST VISIT?NO BARRIERS TO LEARNING?NO HEARING IMPAIRED?NO VISION IMPAIRED?YES COGNITIVELY IMPAIRED?NO :CORRECTIVE LENSES GLASSES READINESS TO LEARN?YES LEARNING PREFERENCES?NO LEARNING CAPABILITIES PRESENT?YES EMOTIONAL BARRIERS?NO SPECIAL DEVICES?NO ASH WORKER NEEDED?NO PAIN CLINIC PFS, CLERGY, PUBLIC HEALTH REFERRALS PFS REFERRAL NEEDED?NO CLERGY REFERRAL NEEDED?NO PUBLIC HEALTH REFERRAL NEEDED?NO HAS THE PATIENT BEEN EDUCATED REGARDING HIS/HER PLAN OF CARE?YES HAS THE PATIENT BEEN EDUCATED REGARDING PAIN, THE RISK FOR PAIN, THE IMPORTANCE OF EFFECTIVE PAIN MANAGEMENT, AND THE PAIN ASSESSMENT PROCESS?YES LATEX QUESTIONNAIRE LATEX ALLERGY : HAVE YOU EVER DEVELOPED ANY TYPE OF REACTION AFTER HANDLING LATEX PRODUCTS SUCH RUBBER GLOVES, CONDOMS, DIAPHRAGMS, BALLOONS, SOCKS, OR UNDERWEAR?NO LATEX ALLERGY : HAVE YOU EVER DEVELOPED ANY TYPE OF REACTION DURING OR AFTER DENTAL APPOINTMENT, VAGINAL/RECTAL EXAMINATION, SURGICAL PROCEDURE, OR ANY OTHER EXPOSURE?NO DATE ASKED : 04/27/2019 LATEX RISK : HAVE YOU EVER HAD ANY DIFFICULTY BREATHING OR HIVES AFTER EATING OR HANDLING ANY FRUITS, OR VEGETABLES; SUCH KIWI, BANANAS, STONE FRUITS, OR CHESTNUTSNO LATEX RISK : DO YOU HAVE A PREVIOUS PERSONAL HISTORY OF MORE THAN NINE SURGERIES, SPINA BIFIDA, OR REPEATED CATHERIZATIONS? NO LATEX RISK : ARE YOU FREQUENTLY EXPOSED TO LATEX PRODUCTS IN YOUR OCCUPATION?YES CAFFEINE CAFFEINE USE?NO ADVANCE DIRECTIVE ADVANCE DIRECTIVE DISCUSSED WITH PATIENT:YES HCP IS DAUGHTER ROSY FOSTER [phone], COPY SCANNED IN DOCUMENTS [id number] NONDENOMINATIONAL MARITAL STATUS: . ALCOHOL SCREENING DID YOU HAVE A DRINK CONTAINING ALCOHOL IN THE PAST YEAR?NO POINTS0 INTERPRETATIONNEGATIVE OCCUPATION: RETIRED. SEXUAL HX HAD SEX IN THE LAST 12 MONTHS (VAGINAL, ORAL, OR ANAL)?NO HAVE YOU EVER HAD AN STD?NO REVIEWED 08/22/18 NLREVIEWED WTIH PT 10/31/18 0905 BV12/12/18 REVIEWED WITH PT. ADREVIEWED WITH PT 01/24/19 1052 BVREVIEWED WITH PT 03/14/19 1245 LASREVEIWED WITH PT. 04/06/19 VDREVIEWED WITH PT 06/13/19 1011 NLJ. HOSPITALIZATION/MAJOR DIAGNOSTIC PROCEDURE SEE SURGERIES FRACTURED PELVIS CHILDBIRTH REVIEW OF SYSTEMS REVIEWED BY: PROVIDER: PATRICIA DEWITT . CONSTITUTIONAL: ANY CHANGE IN YOUR MEDICAL CONDITION? NO . CHILLS NO . FEVER NO . INFECTION: DO YOU HAVE NEW INFECTIONS? NO . DO YOU HAVE HISTORY OF MRSA? NO . MUSCULOSKELETAL: ANY NEW PATTERNS OF PAIN OR NUMBNESS? YES- STATES THE SIJ DID WORK AND CONTINUES TO HAVE 50% PAIN RELIEF, STATES SOMETIMES SHE HAS 2-3 REALLY BAD DAYS THOUGH . GASTROENTEROLOGY: ANY NEW CHANGE IN BOWEL CONTROL? NO . GENITOURINARY: ANY NEW CHANGE IN BLADDER CONTROL? NO . IS THERE A CHANCE YOU COULD BE ? NO . HEMATOLOGY/LYMPH: DO YOU TAKE ANY BLOOD THINNERS? (FOR EXAMPLE- COUMADIN, PLAVIX, AGGRENOX, PLATEL, PRADAXA, OR XARELTO) NO . WHEN WAS YOUR LAST DOSE? DATE: TIME: . NEUROLOGY: HAVE YOU FALLEN IN THE PAST 12 MONTHS? NO . ANY NEW EXTREMITY NUMBNESS OR WEAKNESS? NO . CARDIOLOGY: DO YOU HAVE A PACEMAKER OR DEFIBRILLATOR? NO . RESPIRATORY: HAVE YOU BEEN SICK IN THE PAST WEEK? NO . FEVER NO . FLU LIKE SYMPTOMS? NO . COUGH NO . INTEGUMENTARY: DO YOU HAVE ANY RASHES OR OPEN SORES? NO . ALLERGIC/IMMUNO: ARE YOU ALLERGIC TO IV DYE? NO . ANY NEW ALLERGIES? NO . PSYCHIATRIC: DO YOU HAVE THOUGHTS OF HURTING YOURSELF OR SOMEONE ELSE? NO . ARE YOU ABUSED, NEGLECTED, OR IN AN UNSAFE ENVIRONMENT? NO . ENDOCRINOLOGY: ARE YOU DIABETIC? NO . OTHER: DO YOU NEED ANY PRESCRIPTIONS? YES . IF YES, PLEASE LIST: ____TRAMADOL . ANY NEW PROBLEMS WITH YOUR MEDICATIONS? NO . WHEN DID YOU LAST EAT? ____ . WHEN DID YOU LAST DRINK? ____ . WHAT DID YOU LAST DRINK? ____ . NAME OF PERSON DRIVING YOU HOME? ____ . DO YOU HAVE ANY OTHER QUESTIONS OR CONCERNS NO- STATES THE BILATERAL SIJ RELIEVED PAIN BY AT LEAST 50%, STATES SHE DOES HAVE DAYS THAT ARE REALLY BAD, BUT STATES SHE IS MUCH BETTER THAN PRE- INJECTIONS . VITAL SIGNS WT 163 LBS, HT 62.5 IN, BMI 29.33 INDEX, BP 99/62 MM HG, HR 82 /MIN, RR 18 /MIN, TEMP 96.2 F, OXYGEN SAT % 98%, SAFE IN ENV? (Y/N) YES, NA INITIALS OH 10:22, REVIEWED BY: DUANE. EXAMINATION GENERAL EXAMINATION: GENERALNO ACUTE DISTRESS, WELL NOURISHED AND HYDRATED. PSYCHAPPROPRIATE MOOD AND AFFECT . LUNGS:CLEAR TO AUSCULTATION BILATERALLY, NO WHEEZES, RHONCHI, RALES. HEART:NO MURMURS, REGULAR RATE AND RHYTHM. BACK:POINT TENDER BILATERAL SIJ , POSITIVE JESSICA'S TEST BILATERALLY . ASSESSMENTS SACROILIITIS, NOT ELSEWHERE CLASSIFIED - M46.1 (PRIMARY) PIRIFORMIS MUSCLE PAIN - M79.18 TREATMENT SACROILIITIS, NOT ELSEWHERE CLASSIFIED CLINICAL NOTES: 69-YEAR-OLD FEMALE IN FOR POST BILATERAL SIJ FOLLOW-UP. WE DID DISCUSS POTENTIAL MEDICATION CHANGES AND IT WAS DECIDED WE WOULD TRY VOLTAREN GEL. GIVEN PRESENTING SYMPTOMS AND RESULTS PHYSICAL EXAMINATION RECOMMENDED REPEAT BILATERAL SIJ AND INITIATION OF VOLTAREN GEL WITH POST PROCEDURAL FOLLOW-UP. PATIENT HAS EXPRESSED UNDERSTANDING OF AND WAS IN AGREEMENT WITH TREATMENT PLAN. GIVEN TIME TO ASK QUESTIONS AND EXPRESS CONCERNS., ISTOP REGISTRY REVIEWED AND DEMONSTRATES COMPLLIANCE. (REF # [id number] ) BRINGS IN MEDICATIONS WHICH IS APPROPRIATE FOR WHAT WAS DISPENSED. RECENT URINE TOXICOLOGY REVIEWED. NO UNAUTHORIZED MEDICATIONS. NO ILLICIT SUBSTANCES AND PRESCRIBED MEDICATIONS WERE PRESENT. PIRIFORMIS MUSCLE PAIN REFILL TRAMADOL HCL TABLET, 50 MG, 2 TABS AM 2 TABS PM, ORALLY, EVERY 6 HRS PRN PAIN MDD=6, 30 DAYS, 180 START VOLTAREN GEL, 1 %, 4G, TRANSDERMAL, QID NEEDED FOR PAIN, 30 DAYS, 1, REFILLS 1 PREVENTIVE MEDICINE PAIN CLINIC TEACHING: PROCEDURE TEACHING SACROILIAC JOINT INJECTION INFORMATION PRINTED AND REVIEWWED WITH PT 06/13/19 1058 NLJ. MEDITATION VOLTAREN GEL DRUG INFORMATION PRINTED AND REVIEWED WITH PT 06/13/19 1058 NLJ. PROCEDURE CODES FA211 ESTABILISHED PATIENT [facility] CHARGE DISPOSITION & COMMUNICATION FOLLOW UP POSTPROCEDURE (REASON: BILATERAL SIJ) ELECTRONICALLY SIGNED BY YULISA GARIBAY ON 06/14/2019 AT 09:05 AM EDT DISCLAIMER : THIS IS A VISIT SUMMARY EXTRACTED FROM THE [employer] CHART. IT IS NOT A COPY OF THE [employer] PROGRESS NOTE. TRACEY
== END ==
LOC: M PAIN 10:00
PROVIDERS: ATTEND Family Medicine
DX: M46.1 Sacroiliitis, not elsewhere classified (principal); M79.18 Myalgia, other site; I10 Essential (primary) hypertension; Z86.59 Personal history of other mental and behavioral disorders; E03.9 Hypothyroidism, unspecified; Z86.19 Personal history of other infectious and parasitic diseases; M81.0 Age-related osteoporosis without current pathological fracture; E78.5 Hyperlipidemia, unspecified; M19.90 Unspecified osteoarthritis, unspecified site; F17.210 Nicotine dependence, cigarettes, uncomplicated; Z88.1 Allergy status to other antibiotic agents; Z88.8 Allergy status to other drugs, medicaments and biological substances; Z79.891 Long term (current) use of opiate analgesic; Z79.899 Other long term (current) drug therapy

== ENCOUNTER → 2019-07-05 | Outpatient (CLI) | payer MEDICARE ==
[~2019-07-05] MED LIST changes: -CLON0.5T2 PO; +CLON0.5T8 PO
--- NOTE | 2019-07-05 14:49 | REP ---
PA and lateral chest: Comparison is 07/01/2018. There are three views including two PA and single lateral projections: There is chronic hyperinflation, unchanged. Lung sloan otherwise clear. The cardiac size is normal. The cecilia, mediastinum, skeletal structures are unremarkable. Impression: Chronic hyperinflation. No acute cardiopulmonary findings. Electronically Signed by Larry Pagan MD 07/05/2019 02:40 P
== END ==
LOC: M LRY 14:23
PROVIDERS: ATTEND Physician Assistant
DX: R91.8 Other nonspecific abnormal finding of lung field (principal); R06.2 Wheezing
CPT/HCPCS: 71046; 94640; G0463

== ENCOUNTER → 2019-09-07 | Outpatient (CLI) | payer MEDICARE ==
[~2019-09-07] MED LIST changes: +CLON0.5T2 PO; -CLON0.5T8 PO
--- NOTE | 2019-09-09 04:36 | ECWPNPC ---
PATIENT NAME: FRED MICHELLE : 1950 GENDER: FEMALE VISIT DATE: 09/07/2019 DISCHARGE DATE: 09/07/19 1153 VISIT LOCKED DATE TIME: PHYSICIAN: EMILIA FARAH RESOURCE: EMILIA FARAH REASON FOR APPOINTMENT 1. BACK HISTORY OF PRESENT ILLNESS HISTORY OF PRESENT ILLNESS: PAIN THE PATIENT DESCRIBES THE PAIN... 69-YEAR-OLD FEMALE IN FOR CHRONIC PAIN FOLLOW-UP. SHE IS CURRENTLY EXPERIENCING SOME SIDE EFFECTS THAT SHE THINKS MAY BE RELATED TO THE TRAMADOL SUCH FATIGUE, AND EXCESSIVE SWEATING. SHE RATES HER PAIN CURRENTLY AT A 10 OUT OF 10 AND DESCRIBES IT SORE, SHARP, AND STABBING. FALL RISK SCREENING: SCREENING :NO FALLS REPORTED IN THE LAST YEAR CURRENT MEDICATIONS TAKING MULTI FOR HER - TABLET 1 TAB ORALLY DAILY TAKING PROAIR HFA 108 (90 BASE) MCG/ACT AEROSOL SOLUTION 2 PUFFS NEEDED INHALATION EVERY 4-6 HRS TAKING CLONAZEPAM 1 MG TABLET CODE A: 1 TAB ORALLY BID TAKING VITAMIN D3 1000 UNIT CAPSULE 1 CAPSULE ORALLY BID TAKING CALCIUM + D3 600-200 MG-UNIT TABLET 1 TAB ORALLY BID TAKING ZETIA 10MG TABLET TAKE 1 TABLET DAILY TAKING LEVOTHYROXINE SODIUM 25 MCG TABLET 1 TABLET ON AN EMPTY STOMACH IN THE MORNING ORALLY ONCE A DAY TAKING VOLTAREN 1 % GEL 4G TRANSDERMAL QID NEEDED FOR PAIN TAKING SYMBICORT 80-4.5 MCG/ACT AEROSOL 2 PUFFS INHALATION TWICE A DAY NEEDED FOR WHEEZING AND COUGHING TAKING TRAMADOL HCL 50 MG TABLET 2 TABS AM 2 TABS PM ORALLY EVERY 6 HRS PRN PAIN MDD=6 TAKING CARVEDILOL 12.5 MG TABLET 1 TAB ORALLY TWICE A DAY TAKING LISINOPRIL 40 MG TABLET 1 TABLET ORALLY ONCE A DAY TAKING AMLODIPINE BESYLATE 5 MG TABLET 0.5 TABLET ORALLY ONCE A DAY, NOTES: DOSE REDUCTION TAKING VENLAFAXINE HCL 100 MG TABLET 1.5 TABLET WITH FOOD ORALLY BID NOT-TAKING AZITHROMYCIN 250 MG TABLET 2 TABLETS ON THE FIRST DAY, THEN 1 TABLET DAILY FOR 4 DAYS ORALLY ONCE A DAY NOT-TAKING DOXYCYCLINE HYCLATE 100 MG CAPSULE 1 CAPSULE ORALLY TWICE A DAY NOT-TAKING PREDNISONE 20 MG TABLET 1 TABLET ORALLY BID MEDICATION LIST REVIEWED AND RECONCILED WITH THE PATIENT PAST MEDICAL HISTORY HTN (ETT 06/11 NEG), HAS SEEN CARDIOLOGY ANXIETY DEPRESSION HYPOTHYROID WITH 2 SMALL CYSTS HX OF C.DIFF TOBACCO ABUSE ETOH ABUSE IN REMISSION OSTEOPOROSIS ON 2018 DEXA, LEANDRA'D BY DR. RIOS ENDOCRINOLOGY RECOMMENDED BISPHOSPHANATES THYROID NODULES X 2, SUBCENTIMETER NO HISTORY OF BIOPSY HYPERLIPIDEMIA DYSTHYMIA OSTEOARTHRITIS ALLERGIES STATINS (FOR ALLERGY USE ONLY): ACHY, PAINFUL MUSCLES - ALLERGY MAGNESIUM: DIARRHEA - ALLERGY TRAZODONE HCL: MUSCLE ACHES - ALLERGY CYMBALTA: SEVERE STOMACH ACHE - SIDE EFFECTS PROZAC: NAUSEA/VOMITING - ALLERGY AUGMENTIN: DIARRHEA - SIDE EFFECTS GABAPENTIN: SEVERE STOMACH ACHE - SIDE EFFECTS SURGICAL HISTORY TONSILLECTOMY TUBAL LIGATION HYSTERECTOMY COLONOSCOPY/ENDOSCOPY TURBT 05/18/17 CYSTOSCOPY FAMILY HISTORY FATHER: , DIAGNOSED WITH OTHER MALIGNANT NEOPLASM OF UNSPECIFIED SITE MOTHER: , OTHER SPECIFIED CONDITIONS INFLUENCING HEALTH STATUS, UNSPECIFIED HEART DISEASE PATERNAL GRAND FATHER: , OTHER MALIGNANT NEOPLASM OF UNSPECIFIED SITE PATERNAL GRAND MOTHER: , OTHER MALIGNANT NEOPLASM OF UNSPECIFIED SITE MATERNAL GRAND FATHER: , UNSPECIFIED HEART DISEASE MATERNAL GRAND MOTHER: , OTHER MALIGNANT NEOPLASM OF UNSPECIFIED SITE 1 BROTHER(S) , 1 SISTER(S) . 1 SON(S) , 1 DAUGHTER(S) - HEALTHY. FATHER: SPINE CA\\\\\\\\\\\\\\\\\\\\\\\\\\\\\\\\\\\\\\\\\\\\\\\\\\\\\\\\\\\\\\\ NMOTHER: ALZHEIMERS\\\\\\\\\\\\\\\\\\\\\\\\\\\\\\\\\\\\\\\\\\\\\\\\\\\\\\\ \\\\\\\\NPATERNAL GF: BRAIN AND LUNG CA\\\\\\\\\\\\\\\\\\\\\\\\\\\\\\\\\\\\\\\\\\\\\\\\\\\\\\\\\\\\\\\ NPATERNAL GM: COLON CA\\\\\\\\\\\\\\\\\\\\\\\\\\\\\\\\\\\\\\\\\\\\\\\\\\\\\\\\\\\\\\\ NMATERNAL GM: CA UNKNOWN\\\\\\\\\\\\\\\\\\\\\\\\\\\\\\\\\\\\\\\\\\\\\\\\\\\\\\\\\\ \\\\\NSISTER: ARTHRITIS\\\\\\\\\\\\\\\\\\\\\\\\\\\\\\\\\\\\\\\\\\\\\\\\\\\\\\\\ \\\\\\\NBROTHER: ()BRAIN AND LUNG CA. SOCIAL HISTORY GENERAL: TOBACCO USE ARE YOU A:CURRENT SMOKER HOW MANY CIGARETTES A DAY DO YOU SMOKE?6-10 HOW OFTEN DO YOU SMOKE CIGARETTES?EVERY DAY PATIENT COUNSELED ON THE DANGERS OF TOBACCO USE AND URGED TO QUIT:09/07/2019 SMOKING CESSATION INFORMATION GIVEN09/04/2019 HIV / HEP-C SCREENING HIV TEST OFFERED TO PATIENT:YES DATE OFFERED:09/12/2018 TEST ACCEPTED:NO HEP-C TEST OFFERED TO PATIENT:YES DATE OFFERED:09/12/2018 REASON:PATIENT DECLINED TEST ACCEPTED:NO REASON:PATIENT DECLINED BROCHURE PROVIDED TO PATIENTYES OTHERS AT HOME: NONE. EDUCATION LEVEL OF EDUCATION:NOT FINISHED COLLEGE DIET: REGULAR. LANGUAGE LANGUAGES SPOKEN:GEORGIAN DOMESTIC VIOLENCE DO YOU FEEL SAFE IN YOUR ENVIRONMENT?YES RECREATIONAL DRUG USE DRUG USE?NO EXERCISE: WALKS, SWIMS. LEARNING BARRIERS / SPECIAL NEEDS CHANGE FROM LAST VISIT?NO BARRIERS TO LEARNING?NO HEARING IMPAIRED?NO VISION IMPAIRED?YES COGNITIVELY IMPAIRED?NO :CORRECTIVE LENSES GLASSES READINESS TO LEARN?YES LEARNING PREFERENCES?NO LEARNING CAPABILITIES PRESENT?YES EMOTIONAL BARRIERS?NO SPECIAL DEVICES?YES :CANE BENZOL OPERATOR NEEDED?NO PAIN CLINIC PFS, CLERGY, PUBLIC HEALTH REFERRALS PFS REFERRAL NEEDED?NO CLERGY REFERRAL NEEDED?NO PUBLIC HEALTH REFERRAL NEEDED?NO WAS THE PROVIDER NOTIFIED OF ANY PERTINENT INFO?YES HAS THE PATIENT BEEN EDUCATED REGARDING HIS/HER PLAN OF CARE?YES HAS THE PATIENT BEEN EDUCATED REGARDING PAIN, THE RISK FOR PAIN, THE IMPORTANCE OF EFFECTIVE PAIN MANAGEMENT, AND THE PAIN ASSESSMENT PROCESS?YES LATEX QUESTIONNAIRE LATEX ALLERGY : HAVE YOU EVER DEVELOPED ANY TYPE OF REACTION AFTER HANDLING LATEX PRODUCTS SUCH RUBBER GLOVES, CONDOMS, DIAPHRAGMS, BALLOONS, SOCKS, OR UNDERWEAR?NO LATEX ALLERGY : HAVE YOU EVER DEVELOPED ANY TYPE OF REACTION DURING OR AFTER DENTAL APPOINTMENT, VAGINAL/RECTAL EXAMINATION, SURGICAL PROCEDURE, OR ANY OTHER EXPOSURE?NO LATEX RISK : HAVE YOU EVER HAD ANY DIFFICULTY BREATHING OR HIVES AFTER EATING OR HANDLING ANY FRUITS, OR VEGETABLES; SUCH KIWI, BANANAS, STONE FRUITS, OR CHESTNUTSNO LATEX RISK : DO YOU HAVE A PREVIOUS PERSONAL HISTORY OF MORE THAN NINE SURGERIES, SPINA BIFIDA, OR REPEATED CATHERIZATIONS? NO LATEX RISK : ARE YOU FREQUENTLY EXPOSED TO LATEX PRODUCTS IN YOUR OCCUPATION?YES DATE ASKED : 09/07/2019 CAFFEINE CAFFEINE USE?NO ADVANCE DIRECTIVE ADVANCE DIRECTIVE DISCUSSED WITH PATIENT:YES HCP IS DAUGHTER ROSY FOSTER [phone], COPY SCANNED IN DOCUMENTS [employer] [id number] RASTAFARI MARITAL STATUS: . ALCOHOL SCREENING DID YOU HAVE A DRINK CONTAINING ALCOHOL IN THE PAST YEAR?NO POINTS0 INTERPRETATIONNEGATIVE OCCUPATION: RETIRED. SEXUAL HX HAD SEX IN THE LAST 12 MONTHS (VAGINAL, ORAL, OR ANAL)?NO HAVE YOU EVER HAD AN STD?NO REVIEWED 08/22/18 NLREVIEWED WTIH PT 10/31/18 0905 BV12/12/18 REVIEWED WITH PT. ADREVIEWED WITH PT 01/24/19 1052 BVREVIEWED WITH PT 03/14/19 1245 LASREVEIWED WITH PT. 04/06/19 VDREVIEWED WITH PT 06/13/19 1011 NLJREVIEWED WITH PATIENT DSD 09-07-19. HOSPITALIZATION/MAJOR DIAGNOSTIC PROCEDURE SEE SURGERIES FRACTURED PELVIS CHILDBIRTH REVIEW OF SYSTEMS REVIEWED BY: PROVIDER: PATRICIA DEWITT . CONSTITUTIONAL: ANY CHANGE IN YOUR MEDICAL CONDITION? NO . CHILLS NO . FEVER NO . INFECTION: DO YOU HAVE NEW INFECTIONS? NO . DO YOU HAVE HISTORY OF MRSA? NO . MUSCULOSKELETAL: ANY NEW PATTERNS OF PAIN OR NUMBNESS? NO . GASTROENTEROLOGY: ANY NEW CHANGE IN BOWEL CONTROL? NO . GENITOURINARY: ANY NEW CHANGE IN BLADDER CONTROL? NO . IS THERE A CHANCE YOU COULD BE ? NO . HEMATOLOGY/LYMPH: DO YOU TAKE ANY BLOOD THINNERS? (FOR EXAMPLE- COUMADIN, PLAVIX, AGGRENOX, PLATEL, PRADAXA, OR XARELTO) NO . WHEN WAS YOUR LAST DOSE? DATE: TIME: . NEUROLOGY: HAVE YOU FALLEN IN THE PAST 12 MONTHS? NO . ANY NEW EXTREMITY NUMBNESS OR WEAKNESS? NO . CARDIOLOGY: DO YOU HAVE A PACEMAKER OR DEFIBRILLATOR? NO . RESPIRATORY: HAVE YOU BEEN SICK IN THE PAST WEEK? NO . FEVER NO . FLU LIKE SYMPTOMS? NO . COUGH NO . INTEGUMENTARY: DO YOU HAVE ANY RASHES OR OPEN SORES? YES, UPPER ARMS, PSORIASIS . ALLERGIC/IMMUNO: ARE YOU ALLERGIC TO IV DYE? NO . ANY NEW ALLERGIES? NO . PSYCHIATRIC: DO YOU HAVE THOUGHTS OF HURTING YOURSELF OR SOMEONE ELSE? NO . ARE YOU ABUSED, NEGLECTED, OR IN AN UNSAFE ENVIRONMENT? NO . ENDOCRINOLOGY: ARE YOU DIABETIC? NO . OTHER: DO YOU NEED ANY PRESCRIPTIONS? NO . IF YES, PLEASE LIST: ____ . ANY NEW PROBLEMS WITH YOUR MEDICATIONS? NO . WHEN DID YOU LAST EAT? ____ . WHEN DID YOU LAST DRINK? ____ . WHAT DID YOU LAST DRINK? ____ . NAME OF PERSON DRIVING YOU HOME? ____ . DO YOU HAVE ANY OTHER QUESTIONS OR CONCERNS VACCINATION BEGINNING OF NOV FLU SHOT.INCREASED FATIGUE, TIRED ALL OF THE TIME, EXCESSIVE SWEATING OF HEAD. . VITAL SIGNS WT 170.4 LBS, HT 62.5 IN, BMI 30.67 INDEX, BP 127/86 MM HG, HR 90 /MIN, RR 18 /MIN, TEMP 96.9 F, OXYGEN SAT % 93%, SAFE IN ENV? (Y/N) Y, NA INITIALS AW 1118, REVIEWED BY: ASHER. EXAMINATION GENERAL EXAMINATION: GENERALNO ACUTE DISTRESS, WELL NOURISHED AND HYDRATED. PSYCHAPPROPRIATE MOOD AND AFFECT . LUNGS:BILATERAL WHEEZING THROUGHOUT . HEART:NO MURMURS, REGULAR RATE AND RHYTHM. 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 CLINICAL NOTES: 69-YEAR-OLD FEMALE IN FOR CHRONIC PAIN FOLLOW-UP. GIVEN PRESENTING SYMPTOMS AND RESULTS OF PHYSICAL EXAMINATION RECOMMENDED DISCONTINUATION OF TRAMADOL AND STARTING NUCYNTA 75 MG ER TWICE A DAY, AND NUCYNTA IR 50 MG DAILY NEEDED. SHE WILL CALL IN 1 WEEK TO INFORM THIS ANGLE SHEAR OPERATOR OF EFFICACY OF TREATMENT. PATIENT HAS EXPRESSED UNDERSTANDING OF AND WAS IN AGREEMENT WITH TREATMENT PLAN. GIVEN TIME TO ASK QUESTIONS AND EXPRESS CONCERNS., ISTOP REGISTRY REVIEWED AND DEMONSTRATES COMPLLIANCE. (REF #[id number] ) BRINGS IN MEDICATIONS WHICH IS APPROPRIATE FOR WHAT WAS DISPENSED. RECENT URINE TOXICOLOGY REVIEWED. NO UNAUTHORIZED MEDICATIONS. NO ILLICIT SUBSTANCES AND PRESCRIBED MEDICATIONS WERE PRESENT. PREVENTIVE MEDICINE PAIN CLINIC TEACHING: MEDICATIONS REVIEWED AND DISCUSSED WRITTEN MATERIAL ON NUCYNTA ER AND IR. EDUCATED PT TO CONTINUE TAKING TRAMADOL UNTIL RECEIVING NUCYNTA ER. PT ACKNOWLEDGED UNDERSTANDING. DS PT ALSO EDUCATED THAT SHE IS TO BRING TRAMADOL INTO NEXT FOLLOW UP APPT WITH EMILIA.. THE PATIENT HAS BEEN EDUCATED REGARDING PAIN, THE RISK FOR PAIN, THE IMPORTANCE OF EFFECTIVE PAIN MANAGEMENT, AND THE PAIN ASSESSMENT PROCESS. : EDUCATED PT REGARDING PLAN OF CARE, PT ENCOURAGED TO SEE ORACLE PROGRAMMER REGARDING FATIGUE AND SWEATING. ASHER PROCEDURE CODES FA211 ESTABILISHED PATIENT [facility] CHARGE DISPOSITION & COMMUNICATION FOLLOW UP AFTER September (REASON: BACK PAIN, NEW MED) ELECTRONICALLY SIGNED BY YULISA GARIBAY ON 09/08/2019 AT 01:06 PM EST DISCLAIMER : THIS IS A VISIT SUMMARY EXTRACTED FROM THE [employer] CHART. IT IS NOT A COPY OF THE [facility] PROGRESS NOTE. TRACEY
== END ==
LOC: M PAIN 10:30
PROVIDERS: ATTEND Family Medicine
DX: M47.27 Other spondylosis with radiculopathy, lumbosacral region (principal); G89.29 Other chronic pain; I10 Essential (primary) hypertension; Z86.59 Personal history of other mental and behavioral disorders; E03.9 Hypothyroidism, unspecified; Z86.19 Personal history of other infectious and parasitic diseases; E78.5 Hyperlipidemia, unspecified; F17.210 Nicotine dependence, cigarettes, uncomplicated; Z88.1 Allergy status to other antibiotic agents; Z88.8 Allergy status to other drugs, medicaments and biological substances; Z79.891 Long term (current) use of opiate analgesic; Z79.899 Other long term (current) drug therapy

== ENCOUNTER → 2019-10-03 | Outpatient (CLI) | payer MEDICARE ==
[~2019-10-03] MED LIST changes: +BUPIVACAINE HCL 0.25% 30 ML VIAL As Ordered ONE; +ISOVUE-M 300 61% 15ML VIAL (Q9967) As Ordered ONE; +LIDOCAINE 1% SDV INJ 30 ML VIAL As Ordered ONE; +TRIAMCINOLONE ACETONIDE SUSP 40 MG/ML VIAL (J3301) As Ordered ONE; +diazePAM 5 MG TAB As Ordered ONE; +oxyCODONE 5MG TAB As Ordered ONE
--- NOTE | 2019-10-03 13:18 | REP ---
C-ARM VIEWS OF SACROILIAC JOINTS: CLINICAL HISTORY: Pain. A C-arm view of the left sacroiliac joint and right sacroiliac joint performed during injection by Dr. Arita. Needle is seen overlying each sacroiliac joint and a small amount of contrast was injected. 14 seconds of fluoroscopy time is utilized. Electronically Signed by Larry Cho MD 10/04/2019 09:50 A
--- NOTE | 2019-10-11 04:28 | ECWPNPC ---
PATIENT NAME: FRED MICHELLE : 1950 GENDER: FEMALE VISIT DATE: 10/03/2019 DISCHARGE DATE: 10/03/19 1313 VISIT LOCKED DATE TIME: PHYSICIAN: POOJA KENNEY MD RESOURCE: POOJA KENNEY MD REASON FOR APPOINTMENT 1. SIJ HISTORY OF PRESENT ILLNESS HISTORY OF PRESENT ILLNESS: PAIN THE PATIENT DESCRIBES THE PAIN... 69 YEAR OLD FEMALE PATIENT WITH A HISTORY OF CHRONIC LOW BACK PAIN. THE PATIENT DESCRIBES THE PAIN SORE, SHARP, STABBING, SHOOTING, AND DAILY WITH A PAIN SCORE OF 6-10/10 DEPENDING ON PHYSICAL ACTIVITY. THE PATIENT SAYS SHE IS VERY UNCOMFORTABLE DUE TO HER LOW BACK PAIN. THE PATIENT SAYS HER LOW BACK PAIN IS AFFECTING HER ABILITY TO PERFORM HER DAILY ACTIVITIES SUCH COOKING, CLEANING, AND MOVING AROUND. FALL RISK SCREENING: SCREENING :NO FALLS REPORTED IN THE LAST YEAR CURRENT MEDICATIONS TAKING MULTI FOR HER - TABLET 1 TAB ORALLY DAILY, NOTES: 10/03 5AM TAKING PROAIR HFA 108 (90 BASE) MCG/ACT AEROSOL SOLUTION 2 PUFFS NEEDED INHALATION EVERY 4-6 HRS, NOTES: 10/02 9AM TAKING VITAMIN D3 1000 UNIT CAPSULE 1 CAPSULE ORALLY BID, NOTES: 10/03 5AM TAKING CALCIUM + D3 600-200 MG-UNIT TABLET 1 TAB ORALLY BID, NOTES: 10/03 5AM TAKING ZETIA 10MG TABLET TAKE 1 TABLET DAILY , NOTES: 10/02 9PM TAKING LEVOTHYROXINE SODIUM 25 MCG TABLET 1 TABLET ON AN EMPTY STOMACH IN THE MORNING ORALLY ONCE A DAY, NOTES: 10/03 5AM TAKING VOLTAREN 1 % GEL 4G TRANSDERMAL QID NEEDED FOR PAIN, NOTES: 2 WEEKS TAKING SYMBICORT 80-4.5 MCG/ACT AEROSOL 2 PUFFS INHALATION TWICE A DAY NEEDED FOR WHEEZING AND COUGHING, NOTES: 1 MONTH TAKING CARVEDILOL 12.5 MG TABLET 1 TAB ORALLY TWICE A DAY, NOTES: 10/03 5AM TAKING LISINOPRIL 40 MG TABLET 1 TABLET ORALLY ONCE A DAY, NOTES: 10/02 9PM TAKING AMLODIPINE BESYLATE 5 MG TABLET 1 TABLET ORALLY ONCE A DAY, NOTES: DOSE REDUCTION 10/03 5AM TAKING VENLAFAXINE HCL 100 MG TABLET 1.5 TABLET WITH FOOD ORALLY BID, NOTES: 10/03 5AM TAKING TRAMADOL HCL 50 MG TABLET 2 TABS AM 2 TABS PM ORALLY EVERY 6 HRS PRN PAIN MDD=6, NOTES: 10/03 5AM TAKING TYLENOL EXTRA STRENGTH 500 MG TABLET 1 TABLET NEEDED ORALLY EVERY 6 HRS, NOTES: 10/02 9PM TAKING CLONAZEPAM 1 MG TABLET CODE A: 1 TAB ORALLY BID, NOTES: 10/03 5AM NOT-TAKING AZITHROMYCIN 250 MG TABLET 2 TABLETS ON THE FIRST DAY, THEN 1 TABLET DAILY FOR 4 DAYS ORALLY ONCE A DAY NOT-TAKING DOXYCYCLINE HYCLATE 100 MG CAPSULE 1 CAPSULE ORALLY TWICE A DAY NOT-TAKING PREDNISONE 20 MG TABLET 1 TABLET ORALLY BID MEDICATION LIST REVIEWED AND RECONCILED WITH THE PATIENT PAST MEDICAL HISTORY HTN (ETT 06/11 NEG), HAS SEEN CARDIOLOGY ANXIETY DEPRESSION HYPOTHYROID WITH 2 SMALL CYSTS HX OF C.DIFF TOBACCO ABUSE ETOH ABUSE IN REMISSION OSTEOPOROSIS ON 2017 DEXA, EVAL'D BY DR. RIOS ENDOCRINOLOGY RECOMMENDED BISPHOSPHANATES THYROID NODULES X 2, SUBCENTIMETER NO HISTORY OF BIOPSY HYPERLIPIDEMIA OSTEOARTHRITIS ALLERGIES STATINS (FOR ALLERGY USE ONLY): ACHY, PAINFUL MUSCLES - ALLERGY MAGNESIUM: DIARRHEA - ALLERGY TRAZODONE HCL: MUSCLE ACHES - ALLERGY CYMBALTA: SEVERE STOMACH ACHE - SIDE EFFECTS PROZAC: NAUSEA/VOMITING - ALLERGY AUGMENTIN: DIARRHEA - SIDE EFFECTS GABAPENTIN: SEVERE STOMACH ACHE - SIDE EFFECTS SURGICAL HISTORY TONSILLECTOMY TUBAL LIGATION HYSTERECTOMY COLONOSCOPY/ENDOSCOPY TURBT 05/18/17 CYSTOSCOPY FAMILY HISTORY FATHER: , DIAGNOSED WITH OTHER MALIGNANT NEOPLASM OF UNSPECIFIED SITE MOTHER: , UNSPECIFIED HEART DISEASE, OTHER SPECIFIED CONDITIONS INFLUENCING HEALTH STATUS PATERNAL GRAND FATHER: , OTHER MALIGNANT NEOPLASM OF UNSPECIFIED SITE PATERNAL GRAND MOTHER: , OTHER MALIGNANT NEOPLASM OF UNSPECIFIED SITE MATERNAL GRAND FATHER: , UNSPECIFIED HEART DISEASE MATERNAL GRAND MOTHER: , OTHER MALIGNANT NEOPLASM OF UNSPECIFIED SITE 1 BROTHER(S) , 1 SISTER(S) . 1 SON(S) , 1 DAUGHTER(S) - HEALTHY. FATHER: SPINE CA\\\\\\\\\\\\\\\\\\\\\\\\\\\\\\\\\\\\\\\\\\\\\\\\\\\\\\\\\\\\\\\ NMOTHER: ALZHEIMERS\\\\\\\\\\\\\\\\\\\\\\\\\\\\\\\\\\\\\\\\\\\\\\\\\\\\\\\ \\\\\\\\NPATERNAL GF: BRAIN AND LUNG CA\\\\\\\\\\\\\\\\\\\\\\\\\\\\\\\\\\\\\\\\\\\\\\\\\\\\\\\\\\\\\\\ NPATERNAL GM: COLON CA\\\\\\\\\\\\\\\\\\\\\\\\\\\\\\\\\\\\\\\\\\\\\\\\\\\\\\\\\\\\\\\ NMATERNAL GM: CA UNKNOWN\\\\\\\\\\\\\\\\\\\\\\\\\\\\\\\\\\\\\\\\\\\\\\\\\\\\\\\\\\ \\\\\NSISTER: ARTHRITIS; BACK SURGERY X2\\\\\\\\\\\\\\\\\\\\\\\\\\\\\\\\\\\\\\\\\\\\\\\\\\\\\\\\\\\\\\\ NBROTHER: ()BRAIN AND LUNG CA. SOCIAL HISTORY GENERAL: TOBACCO USE ARE YOU A:CURRENT SMOKER ARE YOU INTERESTED IN QUITTING?NOT READY TO QUIT COUNSELED THE PATIENT ON SMOKING EFFECTS, EDUCATION [id number]/02/2020 HOW MANY CIGARETTES A DAY DO YOU SMOKE?6-10 HOW OFTEN DO YOU SMOKE CIGARETTES?EVERY DAY PATIENT COUNSELED ON THE DANGERS OF TOBACCO USE AND URGED TO QUIT:09/28/2019 SMOKING CESSATION INFORMATION GIVEN10/03/2019 HIV / HEP-C SCREENING HIV TEST OFFERED TO PATIENT:YES DATE OFFERED:09/12/2018 TEST ACCEPTED:NO HEP-C TEST OFFERED TO PATIENT:YES DATE OFFERED:09/12/2018 REASON:PATIENT DECLINED TEST ACCEPTED:NO REASON:PATIENT DECLINED BROCHURE PROVIDED TO PATIENTYES OTHERS AT HOME: NONE. EDUCATION LEVEL OF EDUCATION:NOT FINISHED COLLEGE DIET: REGULAR. LANGUAGE LANGUAGES SPOKEN:CHADIAN DOMESTIC VIOLENCE DO YOU FEEL SAFE IN YOUR ENVIRONMENT?YES RECREATIONAL DRUG USE DRUG USE?NO EXERCISE: WALKS, SWIMS. 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 PAIN CLINIC PFS, CLERGY, PUBLIC HEALTH REFERRALS PFS REFERRAL NEEDED?NO CLERGY REFERRAL NEEDED?NO PUBLIC HEALTH REFERRAL NEEDED?NO WAS THE PROVIDER NOTIFIED OF ANY PERTINENT INFO?YES HAS THE PATIENT BEEN EDUCATED REGARDING HIS/HER PLAN OF CARE?YES HAS THE PATIENT BEEN EDUCATED REGARDING PAIN, THE RISK FOR PAIN, THE IMPORTANCE OF EFFECTIVE PAIN MANAGEMENT, AND THE PAIN ASSESSMENT PROCESS?YES LATEX QUESTIONNAIRE LATEX ALLERGY : HAVE YOU EVER DEVELOPED ANY TYPE OF REACTION AFTER HANDLING LATEX PRODUCTS SUCH RUBBER GLOVES, CONDOMS, DIAPHRAGMS, BALLOONS, SOCKS, OR UNDERWEAR?NO LATEX ALLERGY : HAVE YOU EVER DEVELOPED ANY TYPE OF REACTION DURING OR AFTER DENTAL APPOINTMENT, VAGINAL/RECTAL EXAMINATION, SURGICAL PROCEDURE, OR ANY OTHER EXPOSURE?NO LATEX RISK : HAVE YOU EVER HAD ANY DIFFICULTY BREATHING OR HIVES AFTER EATING OR HANDLING ANY FRUITS, OR VEGETABLES; SUCH KIWI, BANANAS, STONE FRUITS, OR CHESTNUTSNO LATEX RISK : DO YOU HAVE A PREVIOUS PERSONAL HISTORY OF MORE THAN NINE SURGERIES, SPINA BIFIDA, OR REPEATED CATHERIZATIONS? NO LATEX RISK : ARE YOU FREQUENTLY EXPOSED TO LATEX PRODUCTS IN YOUR OCCUPATION?YES DATE ASKED : 10/03/2019 CAFFEINE CAFFEINE USE?NO ADVANCE DIRECTIVE ADVANCE DIRECTIVE DISCUSSED WITH PATIENT:YES HCP IS DAUGHTER ROSY FOSTER [phone], COPY SCANNED IN DOCUMENTS JUDAISM [id number] CHURCH MARITAL STATUS: . ALCOHOL SCREENING DID YOU HAVE A DRINK CONTAINING ALCOHOL IN THE PAST YEAR?NO POINTS0 INTERPRETATIONNEGATIVE OCCUPATION: RETIRED. SEXUAL HX HAD SEX IN THE LAST 12 MONTHS (VAGINAL, ORAL, OR ANAL)?NO HAVE YOU EVER HAD AN STD?NO REVIEWED 08/22/18 NLREVIEWED [facility] PT 10/31/18 0905 BV12/12/18 REVIEWED WITH PT. ADREVIEWED WITH PT 01/24/19 1052 BVREVIEWED WITH PT 03/14/19 1245 LASREVEIWED WITH PT. 7/11/19 VDREVIEWED WITH PATIENT 10/03/19 DSREVIEWED WITH PT 06/13/19 1011 NLJREVIEWED WITH PATIENT DSD [id number]-SCREENING COMPLETED 09/28/2019 1140 JSREVIEWED WITH PATIENT 10/03/19 DS. HOSPITALIZATION/MAJOR DIAGNOSTIC PROCEDURE SEE SURGERIES FRACTURED PELVIS CHILDBIRTH REVIEW OF SYSTEMS REVIEWED BY: PROVIDER: POOJA KENNEY MD . CONSTITUTIONAL: ANY CHANGE IN YOUR MEDICAL CONDITION? NO . CHILLS NO . FEVER NO . INFECTION: DO YOU HAVE NEW INFECTIONS? NO . DO YOU HAVE HISTORY OF MRSA? NO . MUSCULOSKELETAL: ANY NEW PATTERNS OF PAIN OR NUMBNESS? NO . GASTROENTEROLOGY: ANY NEW CHANGE IN BOWEL CONTROL? NO . GENITOURINARY: ANY NEW CHANGE IN BLADDER CONTROL? NO . IS THERE A CHANCE YOU COULD BE ? NO . HEMATOLOGY/LYMPH: DO YOU TAKE ANY BLOOD THINNERS? (FOR EXAMPLE- COUMADIN, PLAVIX, AGGRENOX, PLATEL, PRADAXA, OR XARELTO) NO . WHEN WAS YOUR LAST DOSE? DATE: TIME: . NEUROLOGY: HAVE YOU FALLEN IN THE PAST 12 MONTHS? NO . ANY NEW EXTREMITY NUMBNESS OR WEAKNESS? PAIN IN LEGS, MORE INTENSE . CARDIOLOGY: DO YOU HAVE A PACEMAKER OR DEFIBRILLATOR? NO . RESPIRATORY: HAVE YOU BEEN SICK IN THE PAST WEEK? NO . FEVER NO . FLU LIKE SYMPTOMS? NO . COUGH NO . INTEGUMENTARY: DO YOU HAVE ANY RASHES OR OPEN SORES? YES, PSORIASIS . ALLERGIC/IMMUNO: ARE YOU ALLERGIC TO IV DYE? NO . ANY NEW ALLERGIES? YES, PT WROTE YES ON DIARY BUT STATES THAT SHE HAS NO NEW ALLERGIES . PSYCHIATRIC: DO YOU HAVE THOUGHTS OF HURTING YOURSELF OR SOMEONE ELSE? NO . ARE YOU ABUSED, NEGLECTED, OR IN AN UNSAFE ENVIRONMENT? NO . ENDOCRINOLOGY: ARE YOU DIABETIC? NO . OTHER: DO YOU NEED ANY PRESCRIPTIONS? NO . IF YES, PLEASE LIST: ____ . ANY NEW PROBLEMS WITH YOUR MEDICATIONS? NO . WHEN DID YOU LAST EAT? 10-02-19 1130PM . WHEN DID YOU LAST DRINK? 10-03-19 0530AM . WHAT DID YOU LAST DRINK? WATER . NAME OF PERSON DRIVING YOU HOME? YELLOW CAB . DO YOU HAVE ANY OTHER QUESTIONS OR CONCERNS NO . VITAL SIGNS WT 168.0 LBS, HT 62.5 IN, BMI 30.23 INDEX, BP 126/70 MM HG, HR 91 /MIN, RR 18 /MIN, TEMP 97.6 F, OXYGEN SAT % 94%, SAFE IN ENV? (Y/N) Y, NA INITIALS AW 0938, REVIEWED BY: DS. EXAMINATION GENERAL EXAMINATION: PATIENT IS ALERT O X 3 AND COOPERATIVE. TENDERNESS IN THE LOW BACK OVER THE BILATERAL SACROILIAC JOINTS. MRI OF THE LUMBAR SPINE DONE ON 10/27/2017 SHOWS DEGENERATIVE DISC DISEASE. ASSESSMENTS SACROILIITIS, NOT ELSEWHERE CLASSIFIED - [id number] (PRIMARY) TREATMENT SACROILIITIS, NOT ELSEWHERE CLASSIFIED CLINICAL NOTES: WE DISCUSSED SEVERAL ISSUES WITH MS. MICHELLE' PAIN MANAGEMENT CASE. DUE TO THE SACROILIAC JOINT DYSFUNCTION, I WOULD LIKE TO MOVE FORWARD WITH A BILATERAL SACROILIAC JOINT BLOCK AT THIS TIME. WE DISCUSSED THE BENEFITS, RISKS, AND ALTERNATIVES OF THE INJECTION AND THE PATIENT WOULD LIKE TO PROCEED. THE PATIENT WILL FOLLOW UP IN SEVERAL WEEKS AFTER HER PROCEDURE TO SEE HOW IT IS HELPING WITH HER PAIN. INSTRUCTIONS WERE GIVEN, QUESTIONS WERE ANSWERED, PATIENT REPORTS UNDERSTANDING AND AGREES WITH THE PLAN. I, KIMBERLEE WHITTEN, DOCUMENTED THE ABOVE INFORMATION ACTING A SCRIBE FOR DR. KENNEY. I HAVE REVIEWED THE ABOVE DOCUMENT, WRITTEN BY KIMBERLEE SULLIVAN AND I VERIFY THAT IT IS ACCURATE. . PROCEDURES PN SI PRE PROCEDURE DIAGNOSIS SACROILIITIS, SACROILIAC JOINT DYSFUNCTION POST PROCEDURE DIAGNOSIS SACROILIITIS, SACROILIAC JOINT DYSFUNCTION PROCEDURE BILATERAL SACROILIAC JOINT BLOCK SURGEON DR. POOJA KENNEY QUANTITATIVE MANAGER NONE ANESTHESIA LOCAL PRE PROCEDURE NOTE PATIENT WITH HISTORY OF CHRONIC LOW BACK PAIN. I EVALUATED THE PATIENT AND REVIEWED THE CHART. I WENT OVER THE RISKS, ALTERNATIVES, AND BENEFITS ASSOCIATED WITH THIS PROCEDURE. THE PATIENT WOULD LIKE TO PROCEED AND GAVE CONSENT TO PERFORM THE PROCEDURE. THE PATIENT DENIES UNEXPLAINABLE WEIGHT LOSS, FEVER, CHILLS, OR NEW CHANGES IN URINARY OR BOWEL CONTROL DESCRIPTION OF PROCEDURE THE PATIENT WAS BROUGHT TO THE PROCEDURE ROOM AND PLACED IN THE PRONE POSITION. THE LUMBOSACRAL AREA WAS CLEANED WITH CHLORAPREP SOLUTION AND DRAPED ASEPTICALLY. THE PROCEDURE WAS DONE UNDER STERILE CONDITIONS. I CHECKED LATERALITY AND THE LEVEL WHERE THE PROCEDURE WAS GOING TO BE PERFORMED WITH THE PATIENT AND THE SUPPORTING STAFF AT THE MOMENT OF THE TIME OUT IN THE PROCEDURE ROOM. UNDER FLUOROSCOPIC GUIDANCE, TARGET POINT WAS SELECTED AT THE LOWER BORDER OF THE RIGHT AND LEFT SACROILIAC JOINT. TARGET POINT WAS SELECTED AFTER MEDIAL ROTATION AND TILT OF THE MAGNIFIER OF THE C-ARM. LIDOCAINE WAS USED TO NUMB THE SKIN AND SUBCUTANEOUS TISSUE BELOW IT. A SPINAL NEEDLE, 22-GAUGE, WAS ADVANCED UNDER FLUOROSCOPIC GUIDANCE AND FOLLOWING PATIENT FEEDBACK UNTIL THE TARGET AREA WAS TOUCHED. THE POSITION OF THE NEEDLE WAS VERIFIED WITH AP AND LATERAL VIEWS. AFTER PROPER POSITION OF THE NEEDLE WAS ACHIEVED, ISOVUE M DYE 30%, 0.25 ML, WAS INJECTED SHOWING SPREAD OF THE DYE. THEN, A SOLUTION OF 30 MG OF KENALOG WAS INJECTED IN RIGHT AND LEFT JOINT WITH 3 ML OF BUPIVACAINE 0.125%. THERE WAS NO EVIDENCE OF BLOOD, PARESTHESIA OR CEREBROSPINAL FLUID DURING THE PROCEDURE. THE PATIENT WAS SENT TO THE RECOVERY ROOM. THE PATIENT WAS MOVING THE EXTREMITIES AND DOING WELL. THERE WAS NO COMPLICATION DURING THE PROCEDURE. FLUOROSCOPY TIME WAS 14 SECONDS POST PROCEDURE NOTE THE PATIENT WILL BE SEEN IN A FOLLOW UP IN THE NEXT FEW WEEKS. I AM LOOKING FOR LONG LASTING PAIN RELIEF WITH THIS INJECTION. INSTRUCTIONS WERE GIVEN, QUESTIONS WERE ANSWERED, AND THE PATIENT EXPRESSED UNDERSTANDING AND AGREED WITH THE PLAN. I, KIMBERLEE WHITTEN, DOCUMENTED THE ABOVE INFORMATION ACTING A SCRIBE FOR DR. KENNEY. I HAVE REVIEWED THE ABOVE DOCUMENT, WRITTEN BY KIMBERLEE WHITTEN SCRIBE AND I VERIFY THAT IT IS ACCURATE. DIAGNOSTIC IMAGING [facility] FLUORO GUIDANCE (PAIN)[id number] PROCEDURE CODES 16004 INJECT SACROILIAC JOINT, MODIFIERS: 50 6045F RADXPS IN END [id number] PXD DISPOSITION & COMMUNICATION FOLLOW UP 3 WEEKS ELECTRONICALLY SIGNED BY POOJA KENNEY MD, MD ON 10/10/2019 AT 10:18 AM EST DISCLAIMER : THIS IS A VISIT SUMMARY EXTRACTED FROM THE [employer] CHART. IT IS NOT A COPY OF THE [employer] PROGRESS NOTE. MTDD
== END ==
LOC: M PAIN 09:45
PROVIDERS: ATTEND Anesthesiology
DX: M46.1 Sacroiliitis, not elsewhere classified (principal); G89.29 Other chronic pain; I10 Essential (primary) hypertension; Z86.59 Personal history of other mental and behavioral disorders; E03.9 Hypothyroidism, unspecified; Z86.19 Personal history of other infectious and parasitic diseases; E78.5 Hyperlipidemia, unspecified; F17.210 Nicotine dependence, cigarettes, uncomplicated; Z88.1 Allergy status to other antibiotic agents; Z88.8 Allergy status to other drugs, medicaments and biological substances; Z79.891 Long term (current) use of opiate analgesic; Z79.899 Other long term (current) drug therapy
CPT/HCPCS: G0260; J3301; Q9967

== ENCOUNTER → 2019-10-04 | Outpatient (CLI) | payer MEDICARE ==
[~2019-10-04] MED LIST changes: -BUPIVACAINE HCL 0.25% 30 ML VIAL As Ordered ONE; -ISOVUE-M 300 61% 15ML VIAL (Q9967) As Ordered ONE; -LIDOCAINE 1% SDV INJ 30 ML VIAL As Ordered ONE; -TRIAMCINOLONE ACETONIDE SUSP 40 MG/ML VIAL (J3301) As Ordered ONE; -diazePAM 5 MG TAB As Ordered ONE; -oxyCODONE 5MG TAB As Ordered ONE
--- NOTE | 2019-10-06 23:07 | ECWPNPC ---
PATIENT NAME: FRED MICHELLE : 1950 GENDER: FEMALE VISIT DATE: 10/04/2019 DISCHARGE DATE: 10/04/19 1115 VISIT LOCKED DATE TIME: PHYSICIAN: EMIILA FARAH RESOURCE: EMILIA FARAH REASON FOR APPOINTMENT 1. [facility]AR REFERRAL HISTORY OF PRESENT ILLNESS PAIN SCREENING: PATIENT HAS A COMPLAINT OF ACUTE OR CHRONIC PAIN :YES 69-YEAR-OLD FEMALE IN FOR CHRONIC PAIN FOLLOW-UP AND REFERRAL TO THE [facility] FOR MEDICATION MANAGEMENT. FALL RISK SCREENING: SCREENING :NO FALLS REPORTED IN THE LAST YEAR CURRENT MEDICATIONS TAKING MULTI FOR HER - TABLET 1 TAB ORALLY DAILY TAKING PROAIR HFA 108 (90 BASE) MCG/ACT AEROSOL SOLUTION 2 PUFFS NEEDED INHALATION EVERY 4-6 HRS TAKING VITAMIN D3 1000 UNIT CAPSULE 1 CAPSULE ORALLY BID TAKING CALCIUM + D3 600-200 MG-UNIT TABLET 1 TAB ORALLY BID TAKING ZETIA 10MG TABLET TAKE 1 TABLET DAILY TAKING LEVOTHYROXINE SODIUM 25 MCG TABLET 1 TABLET ON AN EMPTY STOMACH IN THE MORNING ORALLY ONCE A DAY TAKING VOLTAREN 1 % GEL 4G TRANSDERMAL QID NEEDED FOR PAIN TAKING SYMBICORT 80-4.5 MCG/ACT AEROSOL 2 PUFFS INHALATION TWICE A DAY NEEDED FOR WHEEZING AND COUGHING TAKING CARVEDILOL 12.5 MG TABLET 1 TAB ORALLY TWICE A DAY TAKING LISINOPRIL 40 MG TABLET 1 TABLET ORALLY ONCE A DAY TAKING AMLODIPINE BESYLATE 5 MG TABLET 1 TABLET ORALLY ONCE A DAY, NOTES: DOSE REDUCTION TAKING VENLAFAXINE HCL 100 MG TABLET 1.5 TABLET WITH FOOD ORALLY BID TAKING TRAMADOL HCL 50 MG TABLET 2 TABS AM 2 TABS PM ORALLY EVERY 6 HRS PRN PAIN MDD=6 TAKING TYLENOL EXTRA STRENGTH 500 MG TABLET 1 TABLET NEEDED ORALLY EVERY 6 HRS TAKING CLONAZEPAM 1 MG TABLET CODE A: 1 TAB ORALLY BID NOT-TAKING AZITHROMYCIN 250 MG TABLET 2 TABLETS ON THE FIRST DAY, THEN 1 TABLET DAILY FOR 4 DAYS ORALLY ONCE A DAY NOT-TAKING DOXYCYCLINE HYCLATE 100 MG CAPSULE 1 CAPSULE ORALLY TWICE A DAY NOT-TAKING PREDNISONE 20 MG TABLET 1 TABLET ORALLY BID MEDICATION LIST REVIEWED AND RECONCILED WITH THE PATIENT PAST MEDICAL HISTORY HTN (ETT 06/11 NEG), HAS SEEN CARDIOLOGY ANXIETY DEPRESSION HYPOTHYROID WITH 2 SMALL CYSTS HX OF C.DIFF TOBACCO ABUSE ETOH ABUSE IN REMISSION OSTEOPOROSIS ON 2017 DEXA, EVAL'D BY DR. RIOS ENDOCRINOLOGY RECOMMENDED BISPHOSPHANATES THYROID NODULES X 2, SUBCENTIMETER NO HISTORY OF BIOPSY HYPERLIPIDEMIA OSTEOARTHRITIS ALLERGIES STATINS (FOR ALLERGY USE ONLY): ACHY, PAINFUL MUSCLES - ALLERGY MAGNESIUM: DIARRHEA - ALLERGY TRAZODONE HCL: MUSCLE ACHES - ALLERGY CYMBALTA: SEVERE STOMACH ACHE - SIDE EFFECTS PROZAC: NAUSEA/VOMITING - ALLERGY AUGMENTIN: DIARRHEA - SIDE EFFECTS GABAPENTIN: SEVERE STOMACH ACHE - SIDE EFFECTS SURGICAL HISTORY TONSILLECTOMY TUBAL LIGATION HYSTERECTOMY COLONOSCOPY/ENDOSCOPY TURBT 05/18/17 CYSTOSCOPY FAMILY HISTORY FATHER: , DIAGNOSED WITH OTHER MALIGNANT NEOPLASM OF UNSPECIFIED SITE MOTHER: , OTHER SPECIFIED CONDITIONS INFLUENCING HEALTH STATUS, UNSPECIFIED HEART DISEASE PATERNAL GRAND FATHER: , OTHER MALIGNANT NEOPLASM OF UNSPECIFIED SITE PATERNAL GRAND MOTHER: , OTHER MALIGNANT NEOPLASM OF UNSPECIFIED SITE MATERNAL GRAND FATHER: , UNSPECIFIED HEART DISEASE MATERNAL GRAND MOTHER: , OTHER MALIGNANT NEOPLASM OF UNSPECIFIED SITE 1 BROTHER(S) , 1 SISTER(S) . 1 SON(S) , 1 DAUGHTER(S) - HEALTHY. FATHER: SPINE CA\\\\\\\\\\\\\\\\\\\\\\\\\\\\\\\\\\\\\\\\\\\\\\\\\\\\\\\\\\\\\\\ NMOTHER: ALZHEIMERS\\\\\\\\\\\\\\\\\\\\\\\\\\\\\\\\\\\\\\\\\\\\\\\\\\\\\\\ \\\\\\\\NPATERNAL GF: BRAIN AND LUNG CA\\\\\\\\\\\\\\\\\\\\\\\\\\\\\\\\\\\\\\\\\\\\\\\\\\\\\\\\\\\\\\\ NPATERNAL GM: COLON CA\\\\\\\\\\\\\\\\\\\\\\\\\\\\\\\\\\\\\\\\\\\\\\\\\\\\\\\\\\\\\\\ NMATERNAL GM: CA UNKNOWN\\\\\\\\\\\\\\\\\\\\\\\\\\\\\\\\\\\\\\\\\\\\\\\\\\\\\\\\\\ \\\\\NSISTER: ARTHRITIS; BACK SURGERY X2\\\\\\\\\\\\\\\\\\\\\\\\\\\\\\\\\\\\\\\\\\\\\\\\\\\\\\\\\\\\\\\ NBROTHER: ()BRAIN AND LUNG CA. SOCIAL HISTORY GENERAL: TOBACCO USE ARE YOU A:CURRENT SMOKER ARE YOU INTERESTED IN QUITTING?NOT READY TO QUIT COUNSELED THE PATIENT ON SMOKING EFFECTS, EDUCATION [id number]/08/2020 HOW MANY CIGARETTES A DAY DO YOU SMOKE?6-10 HOW OFTEN DO YOU SMOKE CIGARETTES?EVERY DAY PATIENT COUNSELED ON THE DANGERS OF TOBACCO USE AND URGED TO QUIT:10/04/2019 SMOKING CESSATION INFORMATION GIVEN10/03/2019 HIV / HEP-C SCREENING HIV TEST OFFERED TO PATIENT:YES DATE OFFERED:09/12/2018 TEST ACCEPTED:NO HEP-C TEST OFFERED TO PATIENT:YES DATE OFFERED:09/12/2018 REASON:PATIENT DECLINED TEST ACCEPTED:NO REASON:PATIENT DECLINED BROCHURE PROVIDED TO PATIENTYES OTHERS AT HOME: NONE. EDUCATION LEVEL OF EDUCATION:NOT FINISHED COLLEGE DIET: REGULAR. LANGUAGE LANGUAGES SPOKEN:MOHAWK DOMESTIC VIOLENCE DO YOU FEEL SAFE IN YOUR ENVIRONMENT?YES RECREATIONAL DRUG USE DRUG USE?NO EXERCISE: WALKS, SWIMS. 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 PAIN CLINIC PFS, CLERGY, PUBLIC HEALTH REFERRALS PFS REFERRAL NEEDED?NO CLERGY REFERRAL NEEDED?NO PUBLIC HEALTH REFERRAL NEEDED?NO WAS THE PROVIDER NOTIFIED OF ANY PERTINENT INFO?YES HAS THE PATIENT BEEN EDUCATED REGARDING HIS/HER PLAN OF CARE?YES HAS THE PATIENT BEEN EDUCATED REGARDING PAIN, THE RISK FOR PAIN, THE IMPORTANCE OF EFFECTIVE PAIN MANAGEMENT, AND THE PAIN ASSESSMENT PROCESS?YES LATEX QUESTIONNAIRE LATEX ALLERGY : HAVE YOU EVER DEVELOPED ANY TYPE OF REACTION AFTER HANDLING LATEX PRODUCTS SUCH RUBBER GLOVES, CONDOMS, DIAPHRAGMS, BALLOONS, SOCKS, OR UNDERWEAR?NO LATEX ALLERGY : HAVE YOU EVER DEVELOPED ANY TYPE OF REACTION DURING OR AFTER DENTAL APPOINTMENT, VAGINAL/RECTAL EXAMINATION, SURGICAL PROCEDURE, OR ANY OTHER EXPOSURE?NO LATEX RISK : HAVE YOU EVER HAD ANY DIFFICULTY BREATHING OR HIVES AFTER EATING OR HANDLING ANY FRUITS, OR VEGETABLES; SUCH KIWI, BANANAS, STONE FRUITS, OR CHESTNUTSNO LATEX RISK : DO YOU HAVE A PREVIOUS PERSONAL HISTORY OF MORE THAN NINE SURGERIES, SPINA BIFIDA, OR REPEATED CATHERIZATIONS? NO LATEX RISK : ARE YOU FREQUENTLY EXPOSED TO LATEX PRODUCTS IN YOUR OCCUPATION?YES DATE ASKED : 10/03/2019 CAFFEINE CAFFEINE USE?NO ADVANCE DIRECTIVE ADVANCE DIRECTIVE DISCUSSED WITH PATIENT:YES HCP IS DAUGHTER ROSY FOSTER [phone], COPY SCANNED IN DOCUMENTS ALEVISM [id number] HOAHAOISM MARITAL STATUS: . ALCOHOL SCREENING DID YOU HAVE A DRINK CONTAINING ALCOHOL IN THE PAST YEAR?NO POINTS0 INTERPRETATIONNEGATIVE OCCUPATION: RETIRED. SEXUAL HX HAD SEX IN THE LAST 12 MONTHS (VAGINAL, ORAL, OR ANAL)?NO HAVE YOU EVER HAD AN STD?NO REVIEWED 08/22/18 NLREVIEWED WTIH PT 10/31/18 0905 BV12/12/18 REVIEWED WITH PT. ADREVIEWED WITH PT 01/24/19 1052 BVREVIEWED WITH PT 03/14/19 1245 LASREVEIWED WITH PT. 04/06/19 VDREVIEWED WITH PATIENT 10/03/19 DSREVIEWED WITH PT 06/13/19 1011 NLJREVIEWED WITH PATIENT DSD 19-21-54WOQ-SCREENING COMPLETED 09/28/2019 1140 JSREVIEWED WITH PATIENT 10/03/19 DSREVIEWED WITH PATIENT 10/04/2019 1030 JS. HOSPITALIZATION/MAJOR DIAGNOSTIC PROCEDURE SEE SURGERIES FRACTURED PELVIS CHILDBIRTH REVIEW OF SYSTEMS REVIEWED BY: PROVIDER: PATRICIA DEWITT . CONSTITUTIONAL: ANY CHANGE IN YOUR MEDICAL CONDITION? NO . CHILLS NO . FEVER NO . INFECTION: DO YOU HAVE NEW INFECTIONS? NO . DO YOU HAVE HISTORY OF MRSA? NO . MUSCULOSKELETAL: ANY NEW PATTERNS OF PAIN OR NUMBNESS? NO . SYTEMIC LUPUS NO . GASTROENTEROLOGY: ANY NEW CHANGE IN BOWEL CONTROL? NO . BARRETTS ESOPHAGUS NO . CIRRHOSIS NO . HEPATITIS NO . LIVER FAILURE NO . ACID REFLUX NO . UNEXPLAINED WEIGHT LOSS NO . GENITOURINARY: ANY NEW CHANGE IN BLADDER CONTROL? NO . IS THERE A CHANCE YOU COULD BE ? NO . HEMATOLOGY/LYMPH: DO YOU TAKE ANY BLOOD THINNERS? (FOR EXAMPLE- COUMADIN, PLAVIX, AGGRENOX, PLATEL, PRADAXA, OR XARELTO) NO . WHEN WAS YOUR LAST DOSE? DATE: TIME: . LOW PLATELET COUNT NO . SICKLE CELL DISEASE NO . VON WILLIEBRANDS NO . FACTOR V LEIDEN NO . THALLASEMIA NO . ANEMIA NO . EASY BRUISING NO . NEUROLOGY: HAVE YOU FALLEN IN THE PAST 12 MONTHS? NO . ANY NEW EXTREMITY NUMBNESS OR WEAKNESS? NO . HEAD INJURY NO . DEMENTIA NO . CEREBRAL PALSY NO . MULTIPLE SCLEROSIS NO . DIZZINESS NO . HEADACHE NO . STROKES NO . VERTIGO NO . CARDIOLOGY: DO YOU HAVE A PACEMAKER OR DEFIBRILLATOR? NO . ANGINA NO . HEART ATTACK NO . HEART SURGERY NO . CONGESTIVE HEART FAILURE/FLUID OVERLOAD NO . CHEST PAIN NO . HIGH BLOOD PRESSURE NO . IRREGULAR HEART BEAT NO . RESPIRATORY: HAVE YOU BEEN SICK IN THE PAST WEEK? YES, FEELING SICK AND ACHY TODAY . FEVER NO . FLU LIKE SYMPTOMS? NO . CPAP NO . BYPAP NO . ASTHMA NO . EMPHYSEMA NO . CHRONIC LUNG DISEASES NO . SHORTNESS OF BREATH ON EXERTION NO . COUGH NO . SNORING NO . INTEGUMENTARY: DO YOU HAVE ANY RASHES OR OPEN SORES? YES, PSORIASIS RASH . ALLERGIC/IMMUNO: ARE YOU ALLERGIC TO IV DYE? NO . ANY NEW ALLERGIES? NO . PSYCHIATRIC: DO YOU HAVE THOUGHTS OF HURTING YOURSELF OR SOMEONE ELSE? NO . ARE YOU ABUSED, NEGLECTED, OR IN AN UNSAFE ENVIRONMENT? NO . ENDOCRINOLOGY: ARE YOU DIABETIC? NO . THYROID DISORDER NO . OTHER: DO YOU NEED ANY PRESCRIPTIONS? NO . IF YES, PLEASE LIST: ____ . ANY NEW PROBLEMS WITH YOUR MEDICATIONS? NO . WHEN DID YOU LAST EAT? ____ . WHEN DID YOU LAST DRINK? ____ . WHAT DID YOU LAST DRINK? ____ . NAME OF PERSON DRIVING YOU HOME? ____ . DO YOU HAVE ANY OTHER QUESTIONS OR CONCERNS NO . VITAL SIGNS WT 168.0 LBS, HT 62.5 IN, BMI 30.23 INDEX, BP 154/94 MM HG, HR 59 /MIN, RR 18 /MIN, TEMP 95.8 F, OXYGEN SAT % 92%, SAFE IN ENV? (Y/N) YES, NA INITIALS AW 1024, REVIEWED BY: BLAKE10/04/2019 PATIENT'S BP ELEVATED TODAY, PATIENT IS SICK AND NOT FEELING WELL. PATIENT TO DISCUSS ELEVATED BP WITH PCP IF SHE CONTINUES TO HAVE ELEVATED BP'S. JS. EXAMINATION GENERAL EXAMINATION: GENERALNO ACUTE DISTRESS, WELL NOURISHED AND HYDRATED. PSYCHAPPROPRIATE MOOD AND AFFECT . LUNGS:CLEAR TO AUSCULTATION BILATERALLY, NO WHEEZES, RHONCHI, RALES. HEART:NO MURMURS, REGULAR RATE AND RHYTHM. 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 DISCUSSED [facility]AR PROGRAM WITH PATIENT AND ANSWERED QUESTIONS REGARDING REFERRAL. THE PATIENT AMENABLE TO REFERRAL INFORMED HER THAT THERE OFFICE WILL CALL TO MAKE AN APPOINTMENT. ALSO DISCUSSED MILD PROCEDURE WITH DENTON AND SHE WAS GIVEN MORE INFO REGARDING IT. PATIENT HAS EXPRESSED UNDERSTANDING OF AND WAS IN AGREEMENT WITH TREATMENT PLAN. GIVEN TIME TO ASK QUESTIONS AND EXPRESS CONCERNS., ISTOP REGISTRY REVIEWED AND DEMONSTRATES COMPLLIANCE. (REF # [id number] ) BRINGS IN MEDICATIONS WHICH IS APPROPRIATE FOR WHAT WAS DISPENSED. RECENT URINE TOXICOLOGY REVIEWED. NO UNAUTHORIZED MEDICATIONS. NO ILLICIT SUBSTANCES AND PRESCRIBED MEDICATIONS WERE PRESENT. [facility]AL [facility]:MEDICATION MANAGMENT PROCEDURE CODES FA211 ESTABILISHED PATIENT [facility] FACILITY CHARGE DISPOSITION & COMMUNICATION FOLLOW UP FOLLOW-UP ALREADY SCHEDULED (REASON: POSTPROCEDURE) ELECTRONICALLY SIGNED BY YULISA GARIBAY ON 10/06/2019 AT 08:27 AM EST DISCLAIMER : THIS IS A VISIT SUMMARY EXTRACTED FROM THE [employer] CHART. IT IS NOT A COPY OF THE [employer] PROGRESS NOTE. TRACEY
== END ==
LOC: M PAIN 10:15
PROVIDERS: ATTEND Family Medicine
DX: M51.16 Intervertebral disc disorders with radiculopathy, lumbar region (principal); M48.062 Spinal stenosis, lumbar region with neurogenic claudication

== ENCOUNTER → 2019-10-19 | Outpatient (CLI) | payer MEDICARE ==
--- NOTE | 2019-10-21 03:53 | ECWPNPC ---
PATIENT NAME: FRED MICHELLE : 1950 GENDER: FEMALE VISIT DATE: 10/19/2019 DISCHARGE DATE: 10/19/19 1152 VISIT LOCKED DATE TIME: PHYSICIAN: EMILIA FARAH RESOURCE: EMILIA FARAH REASON FOR APPOINTMENT 1. POST SIJ HISTORY OF PRESENT ILLNESS HISTORY OF PRESENT ILLNESS: PAIN THE PATIENT DESCRIBES THE PAIN... 69-YEAR-OLD FEMALE IN FOR POST SIJ FOLLOW-UP. SHE RATES HER PAIN CURRENTLY AT A 4 OUT OF 10 AND DESCRIBES IT SHARP, STABBING, AND SHOOTING. SHE FEELS THE PROCEDURE WORKED WELL OVERALL RATING HER PAIN PREPROCEDURE AT A 10+ OUT OF 10 AND POSTPROCEDURE AT A 3-4 OUT OF 10. FALL RISK SCREENING: SCREENING :NO FALLS REPORTED IN THE LAST YEAR CURRENT MEDICATIONS TAKING MULTI FOR HER - TABLET 1 TAB ORALLY DAILY TAKING VITAMIN D3 1000 UNIT CAPSULE 1 CAPSULE ORALLY BID TAKING CALCIUM + D3 600-200 MG-UNIT TABLET 1 TAB ORALLY BID TAKING ZETIA 10MG TABLET TAKE 1 TABLET DAILY TAKING LEVOTHYROXINE SODIUM 25 MCG TABLET 1 TABLET ON AN EMPTY STOMACH IN THE MORNING ORALLY ONCE A DAY TAKING SYMBICORT 80-4.5 MCG/ACT AEROSOL 2 PUFFS INHALATION TWICE A DAY NEEDED FOR WHEEZING AND COUGHING TAKING CARVEDILOL 12.5 MG TABLET 1 TAB ORALLY TWICE A DAY TAKING LISINOPRIL 40 MG TABLET 1 TABLET ORALLY ONCE A DAY TAKING AMLODIPINE BESYLATE 5 MG TABLET 1 TABLET ORALLY ONCE A DAY, NOTES: DOSE REDUCTION TAKING VENLAFAXINE HCL 100 MG TABLET 1.5 TABLET WITH FOOD ORALLY BID TAKING TRAMADOL HCL 50 MG TABLET 2 TABS AM 2 TABS PM ORALLY EVERY 6 HRS PRN PAIN MDD=6 TAKING TYLENOL EXTRA STRENGTH 500 MG TABLET 1 TABLET NEEDED ORALLY EVERY 6 HRS TAKING CLONAZEPAM 1 MG TABLET CODE A: 1 TAB ORALLY BID DISCONTINUED PROAIR HFA 108 (90 BASE) MCG/ACT AEROSOL SOLUTION 2 PUFFS NEEDED INHALATION EVERY 4-6 HRS DISCONTINUED VOLTAREN 1 % GEL 4G TRANSDERMAL QID NEEDED FOR PAIN DISCONTINUED AZITHROMYCIN 250 MG TABLET 2 TABLETS ON THE FIRST DAY, THEN 1 TABLET DAILY FOR 4 DAYS ORALLY ONCE A DAY DISCONTINUED DOXYCYCLINE HYCLATE 100 MG CAPSULE 1 CAPSULE ORALLY TWICE A DAY DISCONTINUED PREDNISONE 20 MG TABLET 1 TABLET ORALLY BID MEDICATION LIST REVIEWED AND RECONCILED WITH THE PATIENT PAST MEDICAL HISTORY HTN (ETT 06/11 NEG), HAS SEEN CARDIOLOGY ANXIETY DEPRESSION HYPOTHYROID WITH 2 SMALL CYSTS HX OF C.DIFF TOBACCO ABUSE ETOH ABUSE IN REMISSION OSTEOPOROSIS ON 2018 DEXA, EVAL'D BY DR. RIOS ENDOCRINOLOGY RECOMMENDED BISPHOSPHANATES THYROID NODULES X 2, SUBCENTIMETER NO HISTORY OF BIOPSY HYPERLIPIDEMIA OSTEOARTHRITIS ALLERGIES STATINS (FOR ALLERGY USE ONLY): ACHY, PAINFUL MUSCLES - ALLERGY MAGNESIUM: DIARRHEA - ALLERGY TRAZODONE HCL: MUSCLE ACHES - ALLERGY CYMBALTA: SEVERE STOMACH ACHE - SIDE EFFECTS PROZAC: NAUSEA/VOMITING - ALLERGY AUGMENTIN: DIARRHEA - SIDE EFFECTS GABAPENTIN: SEVERE STOMACH ACHE - SIDE EFFECTS SURGICAL HISTORY TONSILLECTOMY TUBAL LIGATION HYSTERECTOMY COLONOSCOPY/ENDOSCOPY TURBT 05/18/17 CYSTOSCOPY FAMILY HISTORY FATHER: , DIAGNOSED WITH OTHER MALIGNANT NEOPLASM OF UNSPECIFIED SITE MOTHER: , OTHER SPECIFIED CONDITIONS INFLUENCING HEALTH STATUS, UNSPECIFIED HEART DISEASE PATERNAL GRAND FATHER: , OTHER MALIGNANT NEOPLASM OF UNSPECIFIED SITE PATERNAL GRAND MOTHER: , OTHER MALIGNANT NEOPLASM OF UNSPECIFIED SITE MATERNAL GRAND FATHER: , UNSPECIFIED HEART DISEASE MATERNAL GRAND MOTHER: , OTHER MALIGNANT NEOPLASM OF UNSPECIFIED SITE 1 BROTHER(S) , 1 SISTER(S) . 1 SON(S) , 1 DAUGHTER(S) - HEALTHY. FATHER: SPINE CA\\\\\\\\\\\\\\\\\\\\\\\\\\\\\\\\\\\\\\\\\\\\\\\\\\\\\\\\\\\\\\\ NMOTHER: ALZHEIMERS\\\\\\\\\\\\\\\\\\\\\\\\\\\\\\\\\\\\\\\\\\\\\\\\\\\\\\\ \\\\\\\\NPATERNAL GF: BRAIN AND LUNG CA\\\\\\\\\\\\\\\\\\\\\\\\\\\\\\\\\\\\\\\\\\\\\\\\\\\\\\\\\\\\\\\ NPATERNAL GM: COLON CA\\\\\\\\\\\\\\\\\\\\\\\\\\\\\\\\\\\\\\\\\\\\\\\\\\\\\\\\\\\\\\\ NMATERNAL GM: CA UNKNOWN\\\\\\\\\\\\\\\\\\\\\\\\\\\\\\\\\\\\\\\\\\\\\\\\\\\\\\\\\\ \\\\\NSISTER: ARTHRITIS; BACK SURGERY X2\\\\\\\\\\\\\\\\\\\\\\\\\\\\\\\\\\\\\\\\\\\\\\\\\\\\\\\\\\\\\\\ NBROTHER: ()BRAIN AND LUNG CA. SOCIAL HISTORY GENERAL: TOBACCO USE ARE YOU A:CURRENT SMOKER ARE YOU INTERESTED IN QUITTING?NOT READY TO QUIT COUNSELED THE PATIENT ON SMOKING EFFECTS, EDUCATION [id number]/23/2020 HOW MANY CIGARETTES A DAY DO YOU SMOKE?6-10 HOW OFTEN DO YOU SMOKE CIGARETTES?EVERY DAY PATIENT COUNSELED ON THE DANGERS OF TOBACCO USE AND URGED TO QUIT:10/19/2019 SMOKING CESSATION INFORMATION GIVEN10/12/2019 HIV / HEP-C SCREENING HIV TEST OFFERED TO PATIENT:YES DATE OFFERED:09/12/2018 TEST ACCEPTED:NO HEP-C TEST OFFERED TO PATIENT:YES DATE OFFERED:09/12/2018 REASON:PATIENT DECLINED TEST ACCEPTED:NO REASON:PATIENT DECLINED BROCHURE PROVIDED TO PATIENTYES OTHERS AT HOME: NONE. EDUCATION LEVEL OF EDUCATION:NOT FINISHED COLLEGE DIET: REGULAR. LANGUAGE LANGUAGES SPOKEN:ARMENIAN DOMESTIC VIOLENCE DO YOU FEEL SAFE IN YOUR ENVIRONMENT?YES RECREATIONAL DRUG USE DRUG USE?NO EXERCISE: WALKS, SWIMS. 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 STATIONS NEEDED?NO PAIN CLINIC PFS, CLERGY, PUBLIC HEALTH REFERRALS PFS REFERRAL NEEDED?NO CLERGY REFERRAL NEEDED?NO PUBLIC HEALTH REFERRAL NEEDED?NO WAS THE PROVIDER NOTIFIED OF ANY PERTINENT INFO?YES HAS THE PATIENT BEEN EDUCATED REGARDING HIS/HER PLAN OF CARE?YES HAS THE PATIENT BEEN EDUCATED REGARDING PAIN, THE RISK FOR PAIN, THE IMPORTANCE OF EFFECTIVE PAIN MANAGEMENT, AND THE PAIN ASSESSMENT PROCESS?YES LATEX QUESTIONNAIRE LATEX ALLERGY : HAVE YOU EVER DEVELOPED ANY TYPE OF REACTION AFTER HANDLING LATEX PRODUCTS SUCH RUBBER GLOVES, CONDOMS, DIAPHRAGMS, BALLOONS, SOCKS, OR UNDERWEAR?NO LATEX ALLERGY : HAVE YOU EVER DEVELOPED ANY TYPE OF REACTION DURING OR AFTER DENTAL APPOINTMENT, VAGINAL/RECTAL EXAMINATION, SURGICAL PROCEDURE, OR ANY OTHER EXPOSURE?NO LATEX RISK : HAVE YOU EVER HAD ANY DIFFICULTY BREATHING OR HIVES AFTER EATING OR HANDLING ANY FRUITS, OR VEGETABLES; SUCH KIWI, BANANAS, STONE FRUITS, OR CHESTNUTSNO LATEX RISK : DO YOU HAVE A PREVIOUS PERSONAL HISTORY OF MORE THAN NINE SURGERIES, SPINA BIFIDA, OR REPEATED CATHERIZATIONS? NO LATEX RISK : ARE YOU FREQUENTLY EXPOSED TO LATEX PRODUCTS IN YOUR OCCUPATION?YES DATE ASKED : 10/19/2019 CAFFEINE CAFFEINE USE?NO ADVANCE DIRECTIVE ADVANCE DIRECTIVE DISCUSSED WITH PATIENT:YES HCP IS DAUGHTER ROSY FOSTER [phone], COPY SCANNED IN DOCUMENTS SABIANISM [id number] ALEVISM MARITAL STATUS: . ALCOHOL SCREENING DID YOU HAVE A DRINK CONTAINING ALCOHOL IN THE PAST YEAR?NO POINTS0 INTERPRETATIONNEGATIVE OCCUPATION: RETIRED. SEXUAL HX HAD SEX IN THE LAST 12 MONTHS (VAGINAL, ORAL, OR ANAL)?NO HAVE YOU EVER HAD AN STD?NO REVIEWED 08/22/18 NLREVIEWED [facility] PT 10/31/18 0905 BV12/12/18 REVIEWED WITH PT. ADREVIEWED WITH PT 01/24/19 1052 BVREVIEWED WITH PT 03/14/19 1245 LASREVEIWED WITH PT. 04/06/19 VDREVIEWED WITH PATIENT 10/03/19 DSREVIEWED WITH PT 06/13/19 1011 NLJREVIEWED WITH PATIENT DSD [id number]-SCREENING COMPLETED 09/28/2019 1140 JSREVIEWED WITH PATIENT 10/03/19 DSREVIEWED WITH PATIENT 10/04/2019 1030 JS10/19/19 REVIEWED WITH PT. GRAHAM WOODWARD. HOSPITALIZATION/MAJOR DIAGNOSTIC PROCEDURE SEE SURGERIES FRACTURED PELVIS CHILDBIRTH REVIEW OF SYSTEMS REVIEWED BY: PROVIDER: PATRICIA DEWITT . CONSTITUTIONAL: ANY CHANGE IN YOUR MEDICAL CONDITION? NO . CHILLS NO . FEVER NO . INFECTION: DO YOU HAVE NEW INFECTIONS? NO . DO YOU HAVE HISTORY OF MRSA? NO . MUSCULOSKELETAL: ANY NEW PATTERNS OF PAIN OR NUMBNESS? NO . GASTROENTEROLOGY: ANY NEW CHANGE IN BOWEL CONTROL? NO . GENITOURINARY: ANY NEW CHANGE IN BLADDER CONTROL? NO . IS THERE A CHANCE YOU COULD BE ? NO . HEMATOLOGY/LYMPH: DO YOU TAKE ANY BLOOD THINNERS? (FOR EXAMPLE- COUMADIN, PLAVIX, AGGRENOX, PLATEL, PRADAXA, OR XARELTO) NO . WHEN WAS YOUR LAST DOSE? DATE: TIME: . NEUROLOGY: HAVE YOU FALLEN IN THE PAST 12 MONTHS? NO . ANY NEW EXTREMITY NUMBNESS OR WEAKNESS? NO . CARDIOLOGY: DO YOU HAVE A PACEMAKER OR DEFIBRILLATOR? NO . RESPIRATORY: HAVE YOU BEEN SICK IN THE PAST WEEK? NO . FEVER NO . FLU LIKE SYMPTOMS? NO . COUGH NO . INTEGUMENTARY: DO YOU HAVE ANY RASHES OR OPEN SORES? NO . ALLERGIC/IMMUNO: ARE YOU ALLERGIC TO IV DYE? NO . ANY NEW ALLERGIES? NO . PSYCHIATRIC: DO YOU HAVE THOUGHTS OF HURTING YOURSELF OR SOMEONE ELSE? NO . ARE YOU ABUSED, NEGLECTED, OR IN AN UNSAFE ENVIRONMENT? NO . ENDOCRINOLOGY: ARE YOU DIABETIC? NO . OTHER: DO YOU NEED ANY PRESCRIPTIONS? NO . IF YES, PLEASE LIST: ____ . ANY NEW PROBLEMS WITH YOUR MEDICATIONS? NO . WHEN DID YOU LAST EAT? ____ . WHEN DID YOU LAST DRINK? ____ . WHAT DID YOU LAST DRINK? ____ . NAME OF PERSON DRIVING YOU HOME? ____ . DO YOU HAVE ANY OTHER QUESTIONS OR CONCERNS NO . VITAL SIGNS WT 165.6 LBS, HT 62.5 IN, BMI 29.80 INDEX, BP 116/66 MM HG, HR 92 /MIN, RR 18 /MIN, TEMP 96.2 F, OXYGEN SAT % 96%, NA INITIALS TL 1112. EXAMINATION GENERAL EXAMINATION: GENERALNO ACUTE DISTRESS, WELL NOURISHED AND HYDRATED. PSYCHAPPROPRIATE MOOD AND AFFECT . LUNGS:CLEAR TO AUSCULTATION BILATERALLY, NO WHEEZES, RHONCHI, RALES. HEART:NO MURMURS, REGULAR RATE AND RHYTHM. ASSESSMENTS SACROILIITIS, NOT ELSEWHERE CLASSIFIED - M46.1 (PRIMARY) TREATMENT SACROILIITIS, NOT ELSEWHERE CLASSIFIED CLINICAL NOTES: 69-YEAR-OLD FEMALE IN FOR POST SIJ. GIVEN PRESENTING SYMPTOMS AND RESULTS OF PHYSICAL EXAMINATION RECOMMEND FOLLOW-UP IN 2 MONTHS. PATIENT HAS EXPRESSED UNDERSTANDING OF AND WAS IN AGREEMENT WITH TREATMENT PLAN. GIVEN TIME TO ASK QUESTIONS AND EXPRESS CONCERNS., ISTOP REGISTRY REVIEWED AND DEMONSTRATES COMPLLIANCE. (REF # [id number] ) BRINGS IN MEDICATIONS WHICH IS APPROPRIATE FOR WHAT WAS DISPENSED. RECENT URINE TOXICOLOGY REVIEWED. NO UNAUTHORIZED MEDICATIONS. NO ILLICIT SUBSTANCES AND PRESCRIBED MEDICATIONS WERE PRESENT. PROCEDURE CODES [id number] ESTABILISHED PATIENT FORMERLY [facility] CHARGE DISPOSITION & COMMUNICATION FOLLOW UP 2 MONTHS (REASON: BACK PAIN) ELECTRONICALLY SIGNED BY YULISA GARIBAY ON 10/20/2019 AT 10:25 AM EST DISCLAIMER : THIS IS A VISIT SUMMARY EXTRACTED FROM THE [employer] CHART. IT IS NOT A COPY OF THE [employer] PROGRESS NOTE. TRACEY
== END ==
LOC: M PAIN 11:15
PROVIDERS: ATTEND Family Medicine
DX: M46.1 Sacroiliitis, not elsewhere classified (principal); I10 Essential (primary) hypertension; Z86.59 Personal history of other mental and behavioral disorders; E03.9 Hypothyroidism, unspecified; E78.5 Hyperlipidemia, unspecified; F17.210 Nicotine dependence, cigarettes, uncomplicated; Z88.1 Allergy status to other antibiotic agents; Z88.8 Allergy status to other drugs, medicaments and biological substances; Z79.891 Long term (current) use of opiate analgesic; Z79.899 Other long term (current) drug therapy

== ENCOUNTER → 2019-10-20 | Outpatient (CLI) | payer MEDICARE ==
--- NOTE | 2019-11-03 02:04 | ECWPNPC ---
PATIENT NAME: FRED MICHELLE : 1950 GENDER: FEMALE VISIT DATE: 10/20/2019 DISCHARGE DATE: 10/20/19 1414 VISIT LOCKED DATE TIME: PHYSICIAN: POOJA KENNEY MD RESOURCE: POOJA KENNEY MD REASON FOR APPOINTMENT 1. DISCUSS MILD HISTORY OF PRESENT ILLNESS HISTORY OF PRESENT ILLNESS: PAIN THE PATIENT DESCRIBES THE PAIN... 69-YEAR-OLD FEMALE PATIENT WITH A HISTORY OF CHRONIC LOW BACK AND LEG PAIN. THE PATIENT DESCRIBES THE PAIN SHARP, STABBING, SHOOTING, DAILY, AND BRIEF WITH A PAIN SCORE OF 3-10/10 DEPENDING ON PHYSICAL ACTIVITY. THE PATIENT STATES HER RIGHT LEG IS WEAKER THAN THE LEFT. THE PATIENT STATES THAT THE PAIN INTERFERES WITH HER ABILITY TO PERFORM DAILY ACTIVITIES SUCH CLEANING, GROCERY SHOPPING AND COOKING. THE PATIENT SAYS THAT SHE CAN CURRENTLY WALK 200 FEET BEFORE HAVING TO SIT AND THAT SHE CAN STAND FOR 10 MINUTES, BUT SHE MUST THEN SIT TO RELIEVE HER PAIN. PATIENT DENIES UNEXPLAINABLE WEIGHT LOSS, FEVER, CHILLS, NEW CHANGES ON HER URINARY OR BOWEL CONTROL. FALL RISK SCREENING: SCREENING :NO FALLS REPORTED IN THE LAST YEAR CURRENT MEDICATIONS TAKING MULTI FOR HER - TABLET 1 TAB ORALLY DAILY TAKING VITAMIN D3 1000 UNIT CAPSULE 1 CAPSULE ORALLY BID TAKING CALCIUM + D3 600-200 MG-UNIT TABLET 1 TAB ORALLY BID TAKING ZETIA 10MG TABLET TAKE 1 TABLET DAILY TAKING LEVOTHYROXINE SODIUM 25 MCG TABLET 1 TABLET ON AN EMPTY STOMACH IN THE MORNING ORALLY ONCE A DAY TAKING SYMBICORT 80-4.5 MCG/ACT AEROSOL 2 PUFFS INHALATION TWICE A DAY NEEDED FOR WHEEZING AND COUGHING TAKING CARVEDILOL 12.5 MG TABLET 1 TAB ORALLY TWICE A DAY TAKING LISINOPRIL 40 MG TABLET 1 TABLET ORALLY ONCE A DAY TAKING AMLODIPINE BESYLATE 5 MG TABLET 1 TABLET ORALLY ONCE A DAY, NOTES: DOSE REDUCTION TAKING VENLAFAXINE HCL 100 MG TABLET 1.5 TABLET WITH FOOD ORALLY BID TAKING TRAMADOL HCL 50 MG TABLET 2 TABS AM 2 TABS PM ORALLY EVERY 6 HRS PRN PAIN MDD=6 TAKING TYLENOL EXTRA STRENGTH 500 MG TABLET 1 TABLET NEEDED ORALLY EVERY 6 HRS TAKING CLONAZEPAM 1 MG TABLET CODE A: 1 TAB ORALLY BID MEDICATION LIST REVIEWED AND RECONCILED WITH THE PATIENT PAST MEDICAL HISTORY HTN (ETT 06/11 NEG), HAS SEEN CARDIOLOGY ANXIETY DEPRESSION HYPOTHYROID WITH 2 SMALL CYSTS HX OF C.DIFF TOBACCO ABUSE ETOH ABUSE IN REMISSION OSTEOPOROSIS ON 2018 DEXA, EVAL'D BY DR. RIOS ENDOCRINOLOGY RECOMMENDED BISPHOSPHANATES THYROID NODULES X 2, SUBCENTIMETER NO HISTORY OF BIOPSY HYPERLIPIDEMIA OSTEOARTHRITIS ALLERGIES STATINS (FOR ALLERGY USE ONLY): ACHY, PAINFUL MUSCLES - ALLERGY MAGNESIUM: DIARRHEA - ALLERGY TRAZODONE HCL: MUSCLE ACHES - ALLERGY CYMBALTA: SEVERE STOMACH ACHE - SIDE EFFECTS PROZAC: NAUSEA/VOMITING - ALLERGY AUGMENTIN: DIARRHEA - SIDE EFFECTS GABAPENTIN: SEVERE STOMACH ACHE - SIDE EFFECTS SURGICAL HISTORY TONSILLECTOMY TUBAL LIGATION HYSTERECTOMY COLONOSCOPY/ENDOSCOPY TURBT 05/18/17 CYSTOSCOPY FAMILY HISTORY FATHER: , DIAGNOSED WITH OTHER MALIGNANT NEOPLASM OF UNSPECIFIED SITE MOTHER: , UNSPECIFIED HEART DISEASE, OTHER SPECIFIED CONDITIONS INFLUENCING HEALTH STATUS PATERNAL GRAND FATHER: , OTHER MALIGNANT NEOPLASM OF UNSPECIFIED SITE PATERNAL GRAND MOTHER: , OTHER MALIGNANT NEOPLASM OF UNSPECIFIED SITE MATERNAL GRAND FATHER: , UNSPECIFIED HEART DISEASE MATERNAL GRAND MOTHER: , OTHER MALIGNANT NEOPLASM OF UNSPECIFIED SITE 1 BROTHER(S) , 1 SISTER(S) . 1 SON(S) , 1 DAUGHTER(S) - HEALTHY. FATHER: SPINE CAMOTHER: ALZHEIMERSPATERNAL GF: BRAIN AND LUNG CA PATERNAL GM: COLON CA MATERNAL GM: CA UNKNOWNSISTER: ARTHRITIS; BACK SURGERY [id number]: ()BRAIN AND LUNG CA. SOCIAL HISTORY GENERAL: TOBACCO USE ARE YOU A:CURRENT SMOKER HOW OFTEN DO YOU SMOKE CIGARETTES?EVERY DAY HOW MANY CIGARETTES A DAY DO YOU SMOKE?6-10 ARE YOU INTERESTED IN QUITTING?NOT READY TO QUIT PATIENT COUNSELED ON THE DANGERS OF TOBACCO USE AND URGED TO QUIT:10/19/2019 COUNSELED THE PATIENT ON SMOKING EFFECTS, EDUCATION [id number]/23/2020 SMOKING CESSATION INFORMATION GIVEN10/12/2019 HIV / HEP-C SCREENING HIV TEST OFFERED TO PATIENT:YES DATE OFFERED:09/12/2018 TEST ACCEPTED:NO HEP-C TEST OFFERED TO PATIENT:YES DATE OFFERED:09/12/2018 REASON:PATIENT DECLINED TEST ACCEPTED:NO REASON:PATIENT DECLINED BROCHURE PROVIDED TO PATIENTYES OTHERS AT HOME: NONE. EDUCATION LEVEL OF EDUCATION:NOT FINISHED COLLEGE DIET: REGULAR. LANGUAGE LANGUAGES SPOKEN:MALAYSIAN DOMESTIC VIOLENCE DO YOU FEEL SAFE IN YOUR ENVIRONMENT?YES RECREATIONAL DRUG USE DRUG USE?NO EXERCISE: WALKS, SWIMS. LEARNING BARRIERS / SPECIAL NEEDS CHANGE FROM LAST VISIT?NO BARRIERS TO LEARNING?NO HEARING IMPAIRED?NO VISION IMPAIRED?YES :CORRECTIVE LENSES COGNITIVELY IMPAIRED?NO READINESS TO LEARN?YES LEARNING PREFERENCES?NO LEARNING CAPABILITIES PRESENT?YES EMOTIONAL BARRIERS?NO SPECIAL DEVICES?YES :CANE HOME THERAPY TEACHER NEEDED?NO PAIN CLINIC PFS, CLERGY, PUBLIC HEALTH REFERRALS PFS REFERRAL NEEDED?NO CLERGY REFERRAL NEEDED?NO PUBLIC HEALTH REFERRAL NEEDED?NO WAS THE PROVIDER NOTIFIED OF ANY PERTINENT INFO?YES HAS THE PATIENT BEEN EDUCATED REGARDING HIS/HER PLAN OF CARE?YES HAS THE PATIENT BEEN EDUCATED REGARDING PAIN, THE RISK FOR PAIN, THE IMPORTANCE OF EFFECTIVE PAIN MANAGEMENT, AND THE PAIN ASSESSMENT PROCESS?YES LATEX QUESTIONNAIRE LATEX ALLERGY : HAVE YOU EVER DEVELOPED ANY TYPE OF REACTION AFTER HANDLING LATEX PRODUCTS SUCH RUBBER GLOVES, CONDOMS, DIAPHRAGMS, BALLOONS, SOCKS, OR UNDERWEAR?NO LATEX ALLERGY : HAVE YOU EVER DEVELOPED ANY TYPE OF REACTION DURING OR AFTER DENTAL APPOINTMENT, VAGINAL/RECTAL EXAMINATION, SURGICAL PROCEDURE, OR ANY OTHER EXPOSURE?NO DATE ASKED : 10/19/2019 LATEX RISK : HAVE YOU EVER HAD ANY DIFFICULTY BREATHING OR HIVES AFTER EATING OR HANDLING ANY FRUITS, OR VEGETABLES; SUCH KIWI, BANANAS, STONE FRUITS, OR CHESTNUTSNO LATEX RISK : DO YOU HAVE A PREVIOUS PERSONAL HISTORY OF MORE THAN NINE SURGERIES, SPINA BIFIDA, OR REPEATED CATHERIZATIONS? NO LATEX RISK : ARE YOU FREQUENTLY EXPOSED TO LATEX PRODUCTS IN YOUR OCCUPATION?YES CAFFEINE CAFFEINE USE?NO ADVANCE DIRECTIVE ADVANCE DIRECTIVE DISCUSSED WITH PATIENT:YES HCP IS DAUGHTER ROSY FOSTER [phone], COPY SCANNED IN DOCUMENTS RESTORATIONISM [id number] VOODOO MARITAL STATUS: . ALCOHOL SCREENING DID YOU HAVE A DRINK CONTAINING ALCOHOL IN THE PAST YEAR?NO POINTS0 INTERPRETATIONNEGATIVE OCCUPATION: RETIRED. SEXUAL HX HAD SEX IN THE LAST 12 MONTHS (VAGINAL, ORAL, OR ANAL)?NO HAVE YOU EVER HAD AN STD?NO REVIEWED 08/22/18 NLREVIEWED WTIH PT 10/31/18 0905 BV12/12/18 REVIEWED WITH PT. ADREVIEWED WITH PT 01/24/19 1052 BVREVIEWED WITH PT 03/14/19 1245 LASREVEIWED WITH PT. 04/06/19 VDREVIEWED WITH PATIENT 10/03/19 DSREVIEWED WITH PT 06/13/19 1011 NLJREVIEWED WITH PATIENT DSD [id number]-SCREENING COMPLETED 09/28/2019 1140 JSREVIEWED WITH PATIENT 10/03/19 DSREVIEWED WITH PATIENT 10/04/2019 1030 JS10/19/19 REVIEWED WITH PT. GRAHAM WOODWARD. HOSPITALIZATION/MAJOR DIAGNOSTIC PROCEDURE SEE SURGERIES FRACTURED PELVIS CHILDBIRTH REVIEW OF SYSTEMS REVIEWED BY: PROVIDER: POOJA KENNEY MD . CONSTITUTIONAL: ANY CHANGE IN YOUR MEDICAL CONDITION? NO . CHILLS NO . FEVER NO . INFECTION: DO YOU HAVE NEW INFECTIONS? NO . DO YOU HAVE HISTORY OF MRSA? NO . MUSCULOSKELETAL: ANY NEW PATTERNS OF PAIN OR NUMBNESS? NO . GASTROENTEROLOGY: ANY NEW CHANGE IN BOWEL CONTROL? NO . GENITOURINARY: ANY NEW CHANGE IN BLADDER CONTROL? NO . IS THERE A CHANCE YOU COULD BE ? NO . HEMATOLOGY/LYMPH: DO YOU TAKE ANY BLOOD THINNERS? (FOR EXAMPLE- COUMADIN, PLAVIX, AGGRENOX, PLATEL, PRADAXA, OR XARELTO) NO . WHEN WAS YOUR LAST DOSE? DATE: TIME: . NEUROLOGY: HAVE YOU FALLEN IN THE PAST 12 MONTHS? NO . ANY NEW EXTREMITY NUMBNESS OR WEAKNESS? NO . CARDIOLOGY: DO YOU HAVE A PACEMAKER OR DEFIBRILLATOR? NO . RESPIRATORY: HAVE YOU BEEN SICK IN THE PAST WEEK? NO . FEVER NO . FLU LIKE SYMPTOMS? NO . COUGH NO . INTEGUMENTARY: DO YOU HAVE ANY RASHES OR OPEN SORES? NO . ALLERGIC/IMMUNO: ARE YOU ALLERGIC TO IV DYE? NO . ANY NEW ALLERGIES? NO . PSYCHIATRIC: DO YOU HAVE THOUGHTS OF HURTING YOURSELF OR SOMEONE ELSE? NO . ARE YOU ABUSED, NEGLECTED, OR IN AN UNSAFE ENVIRONMENT? NO . ENDOCRINOLOGY: ARE YOU DIABETIC? NO . OTHER: DO YOU NEED ANY PRESCRIPTIONS? NO . IF YES, PLEASE LIST: ____ . ANY NEW PROBLEMS WITH YOUR MEDICATIONS? NO . WHEN DID YOU LAST EAT? ____ . WHEN DID YOU LAST DRINK? ____ . WHAT DID YOU LAST DRINK? ____ . NAME OF PERSON DRIVING YOU HOME? ____ . DO YOU HAVE ANY OTHER QUESTIONS OR CONCERNS YES - I HAVE A COLD LEFT FOOT - MOSTLY AT NIGHT . VITAL SIGNS WT 165 LBS, HT 62.5 IN, BMI 29.69 INDEX, BP 124/73 MM HG, HR 84 /MIN, RR 17 /MIN, TEMP 96.8 F, OXYGEN SAT % 98, SAFE IN ENV? (Y/N) Y, REVIEWED BY: AMELIA RIVERS, MOLD CLOSER II @ 1739. EXAMINATION GENERAL EXAMINATION: PATIENT IS ALERT O X 3 AND COOPERATIVE. ANTALGIC GAIT. THE PATIENT IS LIMPING ON THE LEFT SIDE. THERE IS TENDERNESS IN THE LOW BACK AREA AND PARASPINAL MUSCLE AREA. RIGHT LEG IS WEAKER THAN THE LEFT LEG AT EXTENSION AND FLEXION. STRAIGHT LEG RAISE OF THE RIGHT LEG IS POSITIVE AT 45 DEGREES FOR RADICULOPATHY. MRI OF THE LUMBOSACRAL SPINE DONE ON 10/27/17 SHOWS FACET HYPERTROPHY OF THE LIGAMENTUM FLAVUM AT L4-L5. THE LIGAMENTUM FLAVUM MEASURES 8 MM OVER THE RIGHT SIDE. THE LIGAMENTUM FLAVUM MEASURES 6 MM AT L5 OVER THE LEFT SIDE. ASSESSMENTS SPINAL STENOSIS, LUMBAR REGION WITH NEUROGENIC CLAUDICATION - M48.062 (PRIMARY) LUMBAR SPINE INSTABILITY - M53.2X6 LOW BACK PAIN - M54.5 TREATMENT SPINAL STENOSIS, LUMBAR REGION WITH NEUROGENIC CLAUDICATION CLINICAL NOTES: WE DISCUSSED SEVERAL ISSUES WITH MS. MICHELLE' PAIN MANAGEMENT CASE. DUE TO THE LUMBAR RADICULOPATHY, I WOULD LIKE TO MOVE FORWARD WITH A LUMBAR EPIDURAL STEROID INJECTION AT THIS TIME. WE DISCUSSED THE BENEFITS, RISKS AND ALTERNATIVES OF THE INJECTION, AND THE PATIENT WOULD LIKE TO PROCEED. MS. MICHELLE IS A CANDIDATE FOR THE MILD (MINIMALLY INVASIVE LUMBAR DECOMPRESSION) PROCEDURE, THE PATIENT AGREES THAT SHE WILL DOCUMENT THE DISTANCE SHE CAN COVER BEFORE RESTING BY COUNTING HER STEPS BEFORE SHE MUST TAKE A REST. I AM ORDERING FOR A LUMBAR AP/LAT/EXTENSION/FLEXION X-RAY TO CHECK FOR BACK INSTABILITY. THE PATIENT WILL FOLLOW UP WITH ME ONE WEEK AFTER THE LUMBAR EPIDURAL TO REVIEW THE X-RAY RESULTS AND TO DISCUSS PROCEEDING WITH THE MILD PROCEDURE. INSTRUCTIONS WERE GIVEN, QUESTIONS WERE ANSWERED, PATIENT REPORTS UNDERSTANDING AND AGREES WITH THE PLAN. I, VLADISLAV YEAGER, DOCUMENTED THE ABOVE INFORMATION ACTING A SCRIBE FOR DR. KENNEY. I HAVE REVIEWED THE ABOVE DOCUMENT, WRITTEN BY LAURIE DAVIS, AND I VERIFY THAT IT IS ACCURATE. . LUMBAR SPINE INSTABILITY NOTES: LUMBAR EPIDURAL STEROID INJECTION, LUMBAR EPIDURAL INJECTION HOME CARE MATERIAL WAS PUBLISHED TO [employer]. OTHERS NOTES: LUMBAR EPIDURAL INJECTION HOME CARE MATERIAL WAS PRINTED. PREVENTIVE MEDICINE PAIN CLINIC TEACHING: PROCEDURE TEACHING PRE LUMBAR EPIDURAL STEROID INJECTION INSTRUCTIONS REVIEWED WITH PT.. PROCEDURE CODES [id number] ESTABILISHED PATIENT [facility] FACILITY CHARGE [id number] OFFICE/OUTPATIENT VISIT EST [id number] CURRENT MEDS W/DOSAGES DOCUMENTED G8730 PAIN ASSESS POS TOOL F/U PLAN DOC DISPOSITION & COMMUNICATION FOLLOW UP REASON: LESI; 1 WEEK F/UP AFTER WITH DR Leigh/ORDER LS X-RAY ELECTRONICALLY SIGNED BY POOJA KENNEY MD, MD ON 11/02/2019 AT 04:55 PM EST DISCLAIMER : THIS IS A VISIT SUMMARY EXTRACTED FROM THE [employer] CHART. IT IS NOT A COPY OF THE [employer] PROGRESS NOTE. TRACEY
== END ==
LOC: M PAIN 11:00
PROVIDERS: ATTEND Anesthesiology
DX: M48.062 Spinal stenosis, lumbar region with neurogenic claudication (principal); M53.2X6 Spinal instabilities, lumbar region; M54.5 Low back pain; G89.29 Other chronic pain; I10 Essential (primary) hypertension; Z86.59 Personal history of other mental and behavioral disorders; E03.9 Hypothyroidism, unspecified; Z86.19 Personal history of other infectious and parasitic diseases; E78.5 Hyperlipidemia, unspecified; F17.210 Nicotine dependence, cigarettes, uncomplicated; Z88.1 Allergy status to other antibiotic agents; Z88.8 Allergy status to other drugs, medicaments and biological substances; Z79.891 Long term (current) use of opiate analgesic; Z79.899 Other long term (current) drug therapy

== ENCOUNTER → 2019-11-01 | Outpatient (CLI) | payer MEDICARE ==
--- NOTE | 2019-11-01 13:18 | REP ---
Lumbar spine five views: Comparison is 11/22/2017. There is demineralization. The vertebral body heights are normal. There are Schmorl's nodes in the superior endplates of L1 and L2. There is disc space narrowing and osteophytic formation throughout the lumbar spine compatible with degenerative disc disease at every lumbar level. There is facet osteoarthritis. There is grade 1 anterolisthesis of L4, likely degenerative. There is osteoarthritis of the sacroiliac articulations. Impression: Scoliosis, multilevel degenerative disc disease, facet osteoarthritis, sacroiliac osteoarthritis and grade 1 L4 anterolisthesis. Electronically Signed by Larry Pagan MD 11/01/2019 01:09 P
== END ==
LOC: M RAD 12:26
PROVIDERS: ATTEND Anesthesiology
DX: M54.5 Low back pain (principal)

== ENCOUNTER → 2019-11-29 | Outpatient (REF) | payer MEDICARE ==
[2019-11-29 16:43] LABS: APPEARANCE, URINE CLOUDY (CLEAR); BACTERIA, URINE AUTO 1+ (NEGATIVE); BILIRUBIN, URINE AUTO NEGATIVE (NEGATIVE); BLOOD, URINE BLOOD NEGATIVE (NEGATIVE); CALCIUM OXALATE CRYSTALS MODERATE; COLOR, URINE YELLOW (YELLOW); GLUCOSE, URINE (UA) AUTO NEGATIVE (NEGATIVE); KETONE, URINE AUTO NEGATIVE (NEGATIVE); LEUKOCYTE ESTERASE, URINE AUTO 2+ (NEGATIVE); MUCUS, URINE LARGE (NEGATIVE); NITRITE, URINE AUTO NEGATIVE (NEGATIVE); PROTEIN, URINE AUTO NEGATIVE (NEGATIVE); RBC, URINE AUTO 3 /HPF (0-3); SPECIFIC GRAVITY URINE AUTO 1.018 (1.002-1.035); SQUAMOUS EPITHELIAL CELL UR AU 5 /HPF (0-6); UROBILINOGEN, URINE AUTO 0.2 mg/dL (0.0-2.0); WBC, URINE AUTO 23 /HPF (0-3)
[2019-11-29 16:55] LABS: BASO # 0.1 10^3/uL (0.0-0.2); BASO % 1.2 % (0.0-1.0); EOS # 0.2 10^3/uL (0.0-0.5); EOS % 2.7 % (0.0-3.0); HEMATOCRIT 39.4 % (36.0-47.0); LYMPH # 1.9 10^3/uL (1.5-5.0); LYMPH % 28.8 % (24.0-44.0); MEAN CORPUSCULAR HEMOGLOBIN 33.5 pg (27.0-33.0); MEAN CORPUSCULAR VOLUME 101.5 fl (80.0-96.0); MONO # 0.7 10^3/uL (0.0-0.8); NEUTROPHILS # 3.8 10^3/uL (1.5-8.5); NEUTROPHILS % 57.2 % (36.0-66.0); PLATELET COUNT, AUTOMATED 363 10^3/uL (150-450); RED BLOOD COUNT 3.88 10^6/uL (4.00-5.40); WHITE BLOOD COUNT 6.7 10^3/uL (4.0-10.0)
[2019-11-29 16:56] LABS: ALBUMIN 3.8 GM/DL (3.2-5.2); ALT/SGPT 30 U/L (12-78); BILIRUBIN,TOTAL 0.2 MG/DL (0.2-1.0); BLOOD UREA NITROGEN 11 MG/DL (7-18); CARBON DIOXIDE LEVEL 34 MEQ/L (21-32); CHLORIDE LEVEL 104 MEQ/L (98-107); CREATININE FOR GFR 0.75 MG/DL (0.55-1.30); GLOMERULAR FILTRATION RATE > 60.0 (>39); GLUCOSE, FASTING 94 MG/DL (70-100); POTASSIUM SERUM 4.6 MEQ/L (3.5-5.1); SODIUM LEVEL 141 MEQ/L (136-145); TOTAL PROTEIN 6.8 GM/DL (6.4-8.2)
== END ==
LOC: M SFHCLERA 11:05
PROVIDERS: ATTEND Family Medicine
DX: I10 Essential (primary) hypertension (principal); R30.0 Dysuria
CPT/HCPCS: 80053; 81001; 84443; 85025; 87088; 87186; G0463

== ENCOUNTER → 2019-12-07 | Outpatient (REF) | payer MEDICARE | LOC: M SFHCPLAZ 09:16 | PROVIDERS: ATTEND Family Medicine | DX: N39.0 Urinary tract infection, site not specified (principal) ==

== ENCOUNTER → 2020-01-10 | Outpatient (CLI) | payer MEDICARE ==
--- NOTE | 2020-01-16 00:20 | ECWPNPC ---
PATIENT NAME: FRED MICHELLE : 1950 GENDER: FEMALE VISIT DATE: 01/10/2020 DISCHARGE DATE: 01/10/20 1501 VISIT LOCKED DATE TIME: PHYSICIAN: POOJA KENNEY MD RESOURCE: POOJA KENNEY MD REASON FOR APPOINTMENT 1. LOW BACK AND RIGHT LEG PAIN HISTORY OF PRESENT ILLNESS HISTORY OF PRESENT ILLNESS: PAIN THE PATIENT DESCRIBES THE PAIN... PERMISSION FROM PATIENT WAS RECEIVED TO DO TELEMEDICINE OFFICE VISIT VIA ZOOM. 69-YEAR-OLD FEMALE PATIENT WITH A HISTORY OF CHRONIC LOW BACK AND RIGHT LEG PAIN. THE PATIENT DESCRIBES THE PAIN ACHING AND SEVERE WITH A PAIN SCORE RANGING FROM 6-10/10 DEPENDING ON PHYSICAL ACTIVITY. THE PATIENT STATES THAT THE PAIN IN MAINLY LOCATED IN HER BACK AND RADIATES TO HER RIGHT LEG. THE PATIENT STATES THAT THE PAIN IS AFFECTING HER ACTIVITIES OF DAILY LIVING, SUCH GROCERY SHOPPING, CLEANING AND COOKING. THE PATIENT STATES THAT SHE HAS A HARD TIME WALKING AROUND. THE PATIENT HAS BEEN USING TRAMADOL FOR PAIN. PATIENT DENIES UNEXPLAINABLE WEIGHT LOSS, FEVER, CHILLS, NEW CHANGES ON HER URINARY OR BOWEL CONTROL. FALL RISK SCREENING: SCREENING :NO FALLS REPORTED IN THE LAST YEAR CURRENT MEDICATIONS TAKING MULTI FOR HER - TABLET 1 TAB ORALLY DAILY TAKING VITAMIN D3 1000 UNIT CAPSULE 1 CAPSULE ORALLY BID TAKING CALCIUM + D3 600-200 MG-UNIT TABLET 1 TAB ORALLY BID TAKING ZETIA 10MG TABLET TAKE 1 TABLET DAILY TAKING LEVOTHYROXINE SODIUM 25 MCG TABLET 1 TABLET ON AN EMPTY STOMACH IN THE MORNING ORALLY ONCE A DAY TAKING VENLAFAXINE HCL 100 MG TABLET 1.5 TABLET WITH FOOD ORALLY BID TAKING TYLENOL EXTRA STRENGTH 500 MG TABLET 1 TABLET NEEDED ORALLY EVERY 6 HRS TAKING CARVEDILOL 12.5 MG TABLET 1 TAB ORALLY TWICE A DAY TAKING LISINOPRIL 40 MG TABLET 1 TABLET ORALLY ONCE A DAY TAKING AMLODIPINE BESYLATE 5 MG TABLET 1 TABLET ORALLY ONCE A DAY, NOTES: DOSE REDUCTION TAKING TRAMADOL HCL 50 MG TABLET 2 TABS AM 2 TABS PM ORALLY EVERY 6 HRS PRN PAIN MDD=6 TAKING CLONAZEPAM 1 MG TABLET CODE A: 1 TAB ORALLY BID, NOTES: CODE 07 TAKING SYMBICORT 80-4.5 MCG/ACT AEROSOL 2 PUFFS INHALATION TWICE A DAY NEEDED FOR WHEEZING AND COUGHING TAKING CLOTRIMAZOLE 1 % CREAM 1 APPLICATION EXTERNALLY TWICE A DAY TO GROIN AREA TAKING CLOBETASOL PROPIONATE 0.05 % CREAM 1 APPLICATION EXTERNALLY TWICE A DAY TO AFFECTED AREAS ON ELBOWS AND LEGS, NOTES: DO NOT APPLY BETWEEN FINGERS OR FACE NOT-TAKING MACROBID 100 MG CAPSULE 1 CAPSULE AT BEDTIME WITH FOOD ORALLY BID NOT-TAKING FOSFOMYCIN TROMETHAMINE 3 GM PACKET 1 PACKET MIXED IN 3 TO 4 OUNCES OF WATER ORALLY ONCE NOT-TAKING LEVOFLOXACIN 250 MG TABLET 1 TABLET ORALLY ONCE A DAY, NOTES: CANCEL FOSFOMYCIN (BECAUSE OF COST) MEDICATION LIST REVIEWED AND RECONCILED WITH THE PATIENT PAST MEDICAL HISTORY HTN (ETT 06/11 NEG), HAS SEEN CARDIOLOGY ANXIETY DEPRESSION HYPOTHYROID WITH 2 SMALL CYSTS HX OF C.DIFF TOBACCO ABUSE ETOH ABUSE IN REMISSION OSTEOPOROSIS ON 2017 DEXA, EVAL'D BY DR. RIOS ENDOCRINOLOGY RECOMMENDED BISPHOSPHANATES THYROID NODULES X 2, SUBCENTIMETER NO HISTORY OF BIOPSY HYPERLIPIDEMIA OSTEOARTHRITIS ALLERGIES STATINS (FOR ALLERGY USE ONLY): ACHY, PAINFUL MUSCLES - ALLERGY MAGNESIUM: DIARRHEA - ALLERGY TRAZODONE HCL: MUSCLE ACHES - ALLERGY CYMBALTA: SEVERE STOMACH ACHE - SIDE EFFECTS PROZAC: NAUSEA/VOMITING - ALLERGY AUGMENTIN: DIARRHEA - SIDE EFFECTS GABAPENTIN: SEVERE STOMACH ACHE - SIDE EFFECTS SURGICAL HISTORY TONSILLECTOMY TUBAL LIGATION HYSTERECTOMY COLONOSCOPY/ENDOSCOPY TURBT 05/18/17 CYSTOSCOPY FAMILY HISTORY FATHER: , DIAGNOSED WITH OTHER MALIGNANT NEOPLASM OF UNSPECIFIED SITE MOTHER: , UNSPECIFIED HEART DISEASE, OTHER SPECIFIED CONDITIONS INFLUENCING HEALTH STATUS PATERNAL GRAND FATHER: , OTHER MALIGNANT NEOPLASM OF UNSPECIFIED SITE PATERNAL GRAND MOTHER: , OTHER MALIGNANT NEOPLASM OF UNSPECIFIED SITE MATERNAL GRAND FATHER: , UNSPECIFIED HEART DISEASE MATERNAL GRAND MOTHER: , OTHER MALIGNANT NEOPLASM OF UNSPECIFIED SITE 1 BROTHER(S) , 1 SISTER(S) . 1 SON(S) , 1 DAUGHTER(S) - HEALTHY. FATHER: SPINE CAMOTHER: ALZHEIMERSPATERNAL GF: BRAIN AND LUNG CA PATERNAL GM: COLON CA MATERNAL GM: CA UNKNOWNSISTER: ARTHRITIS; BACK SURGERY [id number]: ()BRAIN AND LUNG CA. SOCIAL HISTORY GENERAL: TOBACCO USE ARE YOU A:CURRENT SMOKER HOW OFTEN DO YOU SMOKE CIGARETTES?EVERY DAY HOW MANY CIGARETTES A DAY DO YOU SMOKE?6-10 ARE YOU INTERESTED IN QUITTING?NOT READY TO QUIT PATIENT COUNSELED ON THE DANGERS OF TOBACCO USE AND URGED TO QUIT:11/29/2019 COUNSELED THE PATIENT ON SMOKING EFFECTS, EDUCATION NLFLIDVD25/04/2020 VAPORNO E-CIGARETTENO SMOKING CESSATION INFORMATION GIVEN11/29/2019 MALES, AGE 65-75 WITH 5 PACK SMOKING HISTORY (100 CIGARETTES LIFETIME)YES HAVE YOU HAD A PNEUMOVAX VACCINE?YES LATEX QUESTIONNAIRE LATEX ALLERGY : HAVE YOU EVER DEVELOPED ANY TYPE OF REACTION AFTER HANDLING LATEX PRODUCTS SUCH RUBBER GLOVES, CONDOMS, DIAPHRAGMS, BALLOONS, SOCKS, OR UNDERWEAR?NO LATEX ALLERGY : HAVE YOU EVER DEVELOPED ANY TYPE OF REACTION DURING OR AFTER DENTAL APPOINTMENT, VAGINAL/RECTAL EXAMINATION, SURGICAL PROCEDURE, OR ANY OTHER EXPOSURE?NO DATE ASKED : 10/19/2019 LATEX RISK : HAVE YOU EVER HAD ANY DIFFICULTY BREATHING OR HIVES AFTER EATING OR HANDLING ANY FRUITS, OR VEGETABLES; SUCH KIWI, BANANAS, STONE FRUITS, OR CHESTNUTSNO LATEX RISK : DO YOU HAVE A PREVIOUS PERSONAL HISTORY OF MORE THAN NINE SURGERIES, SPINA BIFIDA, OR REPEATED CATHERIZATIONS? NO LATEX RISK : ARE YOU FREQUENTLY EXPOSED TO LATEX PRODUCTS IN YOUR OCCUPATION?YES ALCOHOL SCREENING DID YOU HAVE A DRINK CONTAINING ALCOHOL IN THE PAST YEAR?NO POINTS0 INTERPRETATIONNEGATIVE RECREATIONAL DRUG USE DRUG USE?NO CAFFEINE CAFFEINE USE?NO SEXUAL HX HAD SEX IN THE LAST 12 MONTHS (VAGINAL, ORAL, OR ANAL)?NO HAVE YOU EVER HAD AN STD?NO HIV / HEP-C SCREENING HIV TEST OFFERED TO PATIENT:YES DATE OFFERED:09/12/2018 TEST ACCEPTED:NO HEP-C TEST OFFERED TO PATIENT:YES DATE OFFERED:09/12/2018 REASON:PATIENT DECLINED TEST ACCEPTED:NO REASON:PATIENT DECLINED BROCHURE PROVIDED TO PATIENTYES UATSDIN [id number] [employer] LANG[employer]AGE LANGUAGES SPOKEN:PANAMANIAN EDUCATION LEVEL OF EDUCATION:NOT FINISHED COLLEGE LEARNING BARRIERS / SPECIAL NEEDS CHANGE FROM LAST VISIT?NO BARRIERS TO LEARNING?NO HEARING IMPAIRED?NO VISION IMPAIRED?YES COGNITIVELY IMPAIRED?NO :CORRECTIVE LENSES READINESS TO LEARN?YES LEARNING PREFERENCES?NO LEARNING CAPABILITIES PRESENT?YES EMOTIONAL BARRIERS?NO SPECIAL DEVICES?YES :[employer] DIETARY SERVICES DIRECTOR NEEDED?NO DOMESTIC VIOLENCE DO YOU FEEL SAFE IN YOUR ENVIRONMENT?YES OCCUPATION: RETIRED. DIET: REGULAR. EXERCISE: WALKS, SWIMS. MARITAL STATUS: . OTHERS AT HOME: NONE. NEW PATIENT PAIN DIARY PATIENT DESCRIBES PAIN : 01/10/20 FROM 0-10, WHAT LEVEL IS YOUR PAIN TODAY?9 PRECIPITATING FACTORS ACTIVITY ALLEVIATING FACTORS REST PAIN CLINIC PFS, CLERGY, PUBLIC HEALTH REFERRALS PFS REFERRAL NEEDED?NO CLERGY REFERRAL NEEDED?NO PUBLIC HEALTH REFERRAL NEEDED?NO WAS THE PROVIDER NOTIFIED OF ANY PERTINENT INFO?YES HAS THE PATIENT BEEN EDUCATED REGARDING HIS/HER PLAN OF CARE?YES HAS THE PATIENT BEEN EDUCATED REGARDING PAIN, THE RISK FOR PAIN, THE IMPORTANCE OF EFFECTIVE PAIN MANAGEMENT, AND THE PAIN ASSESSMENT PROCESS?YES ADVANCE DIRECTIVE ADVANCE DIRECTIVE DISCUSSED WITH PATIENT:YES HCP IS DAUGHTER ROSY FOSTER [phone], COPY SCANNED IN DOCUMENTS REVIEWED 08/22/18 NLREVIEWED WT[facility] PT 10/31/18 0905 BV12/12/18 REVIEWED WITH PT. ADREVIEWED WITH PT 01/24/19 1052 BVREVIEWED WITH PT 03/14/19 1245 LASREVEIWED WITH PT. 04/06/19 VDREVIEWED WITH PATIENT 10/03/19 DSREVIEWED WITH PT 06/13/19 1011 NLJREVIEWED WITH PATIENT DSD 80-12-70YXG-SCREENING COMPLETED 09/28/2019 1140 JSREVIEWED WITH PATIENT 10/03/19 DSREVIEWED WITH PATIENT 10/04/2019 1030 JS10/19/19 REVIEWED WITH PT. GRAHAM WOODWARD. HOSPITALIZATION/MAJOR DIAGNOSTIC PROCEDURE SEE SURGERIES FRACTURED PELVIS CHILDBIRTH REVIEW OF SYSTEMS REVIEWED BY: PROVIDER: POOJA KENNEY MD . CONSTITUTIONAL: ANY CHANGE IN YOUR MEDICAL CONDITION? NO . CHILLS NO . FEVER NO . INFECTION: DO YOU HAVE NEW INFECTIONS? YES - UPPER RESPIRATORY INFECTION . DO YOU HAVE HISTORY OF MRSA? NO . MUSCULOSKELETAL: ANY NEW PATTERNS OF PAIN OR NUMBNESS? NO . GASTROENTEROLOGY: ANY NEW CHANGE IN BOWEL CONTROL? NO . GENITOURINARY: ANY NEW CHANGE IN BLADDER CONTROL? NO . IS THERE A CHANCE YOU COULD BE ? NO . HEMATOLOGY/LYMPH: DO YOU TAKE ANY BLOOD THINNERS? (FOR EXAMPLE- COUMADIN, PLAVIX, AGGRENOX, PLATEL, PRADAXA, OR XARELTO) NO . WHEN WAS YOUR LAST DOSE? DATE: TIME: . NEUROLOGY: HAVE YOU FALLEN IN THE PAST 12 MONTHS? NO . ANY NEW EXTREMITY NUMBNESS OR WEAKNESS? NO . CARDIOLOGY: DO YOU HAVE A PACEMAKER OR DEFIBRILLATOR? NO . RESPIRATORY: HAVE YOU BEEN SICK IN THE PAST WEEK? YES . FEVER NO . FLU LIKE SYMPTOMS? NO . COUGH YES . INTEGUMENTARY: DO YOU HAVE ANY RASHES OR OPEN SORES? YES - PSORIASIS . ALLERGIC/IMMUNO: ARE YOU ALLERGIC TO IV DYE? NO . ANY NEW ALLERGIES? NO . PSYCHIATRIC: DO YOU HAVE THOUGHTS OF HURTING YOURSELF OR SOMEONE ELSE? NO . ARE YOU ABUSED, NEGLECTED, OR IN AN UNSAFE ENVIRONMENT? NO . ENDOCRINOLOGY: ARE YOU DIABETIC? NO . OTHER: DO YOU NEED ANY PRESCRIPTIONS? YES . IF YES, PLEASE LIST: TRAMADOL . ANY NEW PROBLEMS WITH YOUR MEDICATIONS? NO . WHEN DID YOU LAST EAT? ____ . WHEN DID YOU LAST DRINK? ____ . WHAT DID YOU LAST DRINK? ____ . NAME OF PERSON DRIVING YOU HOME? ____ . DO YOU HAVE ANY OTHER QUESTIONS OR CONCERNS NO . EXAMINATION GENERAL EXAMINATION: TELEMEDICINE VISIT VIA ZOOM. THE PATIENT IS ALERT, ORIENTED TIMES THREE AND COOPERATIVE. I HAD THE PATIENT WALK AROUND. SHE WALKS WITH AN ANTALGIC GAIT WITH A LIMP TO THE RIGHT LEG. THE PATIENT SHOWED ME WHERE HER PAIN WAS LOCATED. SHE POINTED TO HER LUMBOSACRAL JOINT ON THE RIGHT SIDE. MRI OF THE LUMBOSACRAL SPINE DATED 10/27/2017 SHOWS SEVERE STENOSIS AT L4-L5 AND BULGING DISCS AT MULTIPLE LEVELS. 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 MICHELLE REGARDING HER TREATMENT OPTIONS AND CARE. DUE TO THE COVID-19 PRECAUTIONS, WE HAVE AGREED TO POSTPONE THE INJECTIONS TEMPORARILY AND TRY AGGRESSIVE PAIN MANAGEMENT USING MEDICATION FOR NOW. I REVIEWED THE PATIENT'S ISTOP, REFERENCE NUMBER [id number]. I AM GOING TO START THE PATIENT ON BELBUCA 75 MCG, ONCE IN THE MORNING. IT WAS DISCUSSED WITH THE PATIENT THE RISK ASSOCIATED WITH USING NARCOTICS, WHICH INCLUDE RESPIRATORY DEPRESSION, CARDIAC EFFECTS, DEPENDENCE, DIZZINESS, WHICH CAN CAUSE THE PATIENT TO FALL AND CAUSE FRACTURES, LACK OF CONCENTRATION AND . THE PATIENT IS AWARE OF THESE RISKS AND AGREES. THE PATIENT KNOWS TO STOP THE MEDICATION IMMEDIATELY IF SHE EXPERIENCES ANY SIDE EFFECTS. IF THE INSURANCE COMPANY DENIES THIS MEDICATION OR THE MEDICATION GIVES THE PATIENT ANY SIDE EFFECTS, I WILL START THE PATIENT ON HYDROCODONE 1 TABLET PER DAY. THE PATIENT IS ONLY ABLE TO STAND FOR 6 MINUTES AND STATES THAT HER PAIN IS WORSE WHEN SHE STANDS AND IS RELIEVED BY SITTING. 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 I WOULD STILL LIKE TO DO AN EPIDURAL INJECTION AT L4-L5. I ORDERED A NEW MRI FOR THE PATIENT SINCE HER LAST MRI WAS DONE IN 2018. I WOULD LIKE TO DISCUSS HER OLD MRI AND NEW MRI WITH THE RADIOLOGIST. THE PATIENT WILL FOLLOWUP WITH ME IN 2 WEEKS VIA TELEMEDICINE. THE PATIENT KNOWS TO CALL THE OFFICE IF SHE HAS ANY QUESTIONS OR CONCERNS. THE PATIENT UNDERSTANDS AND IS IN AGREEMENT WITH THE TREATMENT PLAN. I, TONI TRIPLETT, DOCUMENTED THE ABOVE INFORMATION ACTING A SCRIBE FOR DR. KENNEY. I HAVE REVIEWED THE ABOVE DOCUMENT, WRITTEN BY TONI TRIPLETT, VETERINARY PRACTICE MANAGER, AND I VERIFY THAT IT IS ACCURATE. . OTHERS START BELBUCA FILM, 75 MCG, 1 FILM TO THE GUM, BUCALLY FOR PAIN, ONCE A DAY, 30 DAYS, 30, REFILLS 0 DISPOSITION & COMMUNICATION FOLLOW UP F/UP TELEMED DR. Ramierz 2 WEEKS (REASON: LOW BACK AND RIGHT LEG PAIN) ELECTRONICALLY SIGNED BY POOJA KENNEY MD, MD ON 01/15/2020 AT 05:43 PM EDT DISCLAIMER : THIS IS A VISIT SUMMARY EXTRACTED FROM THE [employer] CHART. IT IS NOT A COPY OF THE [employer] PROGRESS NOTE. TRACEY
== END ==
LOC: M PAIN 13:15 → M TMPAIN 13:15
PROVIDERS: ATTEND Anesthesiology
DX: M48.062 Spinal stenosis, lumbar region with neurogenic claudication (principal); M51.17 Intervertebral disc disorders with radiculopathy, lumbosacral region; G89.29 Other chronic pain; I10 Essential (primary) hypertension; Z86.59 Personal history of other mental and behavioral disorders; E03.9 Hypothyroidism, unspecified; Z86.19 Personal history of other infectious and parasitic diseases; F17.210 Nicotine dependence, cigarettes, uncomplicated; Z88.1 Allergy status to other antibiotic agents; Z88.8 Allergy status to other drugs, medicaments and biological substances; Z79.891 Long term (current) use of opiate analgesic; Z79.899 Other long term (current) drug therapy

== ENCOUNTER → 2020-01-16 | Outpatient (CLI) | payer MEDICARE ==
--- NOTE | 2020-01-16 11:59 | REP ---
MRI LUMBAR SPINE: COMPARISON: 10/27/2017 TECHNIQUE: Sagittal and axial sequences are obtained. Schmorl's nodes are seen along the superior endplates of T12, L1, L2 and L3 and L4. Slight retrolisthesis of L3 on L4 is unchanged. There is again diffuse loss of signal and disc degeneration with mild disc space narrowing at all levels. There is a more moderate degree of disc space narrowing at L3-4. Degenerative signal is seen along all of the vertebral body endplates. The conus is unremarkable. At the L1-2 level, there is moderate diffuse disc bulging impressing upon the anterior thecal sac. There is mild bilateral foraminal narrowing. There is hypertrophic change of the posterior facet joints and hypertrophy of the ligamentum flavum. There is very mild central canal stenosis. At L2-3, there is again evidence of short pedicles. There are moderate hypertrophic changes at the posterior facets and hypertrophy of the ligamentum flavum. There is moderate diffuse disc bulging. There is moderate central canal stenosis. This is unchanged. There is moderate right-sided foraminal narrowing. At L3-4, there is mild diffuse disc bulging with moderate hypertrophic changes at the posterior facets and hypertrophy of the ligamentum flavum. Developmentally short pedicles are again noted. There is moderate central canal stenosis unchanged. There is mild bilateral foraminal narrowing. At L4-5, there is mild diffuse disc bulging. There is significant hypertrophic change of the posterior facets and hypertrophy of the ligamentum flavum resulting in severe central canal stenosis, unchanged since the prior exam. There is severe crowding of nerve roots with effacement of the CSF signal in the central canal. There is mild left-sided foraminal narrowing. At L5-S1, there is very mild diffuse disc bulging. There is moderate hypertrophic change of the posterior facet joints. There is no significant central canal stenosis. There is mild to moderate foraminal narrowing on the left. IMPRESSION: Once again, there are diffuse advanced degenerative changes with multilevel central canal stenosis, which is quite severe at the L4-5 level. The findings are essentially unchanged compared to the prior exam of 10/27/2017. Electronically Signed by Larry Cho MD 01/16/2020 04:57 P
== END ==
LOC: M RAD 09:58
PROVIDERS: ATTEND Anesthesiology
DX: M48.062 Spinal stenosis, lumbar region with neurogenic claudication (principal); M51.26 Other intervertebral disc displacement, lumbar region; M51.27 Other intervertebral disc displacement, lumbosacral region

== ENCOUNTER → 2020-01-25 | Outpatient (CLI) | payer MEDICARE ==
--- NOTE | 2020-01-30 00:55 | ECWPNPC ---
PATIENT NAME: FRED MICHELLE : 1950 GENDER: FEMALE VISIT DATE: 01/25/2020 DISCHARGE DATE: 01/25/20 1632 VISIT LOCKED DATE TIME: PHYSICIAN: POOJA KENNEY MD RESOURCE: POOJA KENNEY MD REASON FOR APPOINTMENT 1. LOW BACK AND RIGHT LEG PAIN HISTORY OF PRESENT ILLNESS HISTORY OF PRESENT ILLNESS: PAIN THE PATIENT DESCRIBES THE PAIN... PERMISSION FROM PATIENT WAS RECEIVED TO DO TELEMEDICINE VISIT USING ZOOM APPLICATION. 69 YEAR OLD FEMALE PATIENT WITH A HISTORY OF CHRONIC LOW BACK AND LEG PAIN. THE PATIENT DESCRIBES HER PAIN BURNING, HAVE IT ALL THE TIME, SHARP, STABBING, TENDER, SORE WITH A PAIN SCORE OF 6-9/10 DEPENDING ON PHYSICAL ACTIVITY. THE PATIENT SAYS HER PAIN STARTS IN HER LOW BACK AND RADIATES DOWN BOTH LEGS, BUT THE PAIN IS WORSE IN HER RIGHT LEG. THE PATIENT WAS USING HYDROCODONE-ACETAMINOPHEN 5-325 MG THAT WAS CAUSING SIDE EFFECTS FOR HER INCLUDING NAUSEA AND LIGHTHEADEDNESS. THE PATIENT SAYS SHE IS USING TRAMADOL AND TYLENOL TO AID IN PAIN RELIEF. THE PATIENT SAYS HER PAIN IS AFFECTING HER ABILITY TO PERFORM HER DAILY ACTIVITIES SUCH MOVING AROUND, GROCERY SHOPPING, AND CLEANING HER HOUSE. THE PATIENT DENIES UNEXPLAINED WEIGHT LOSS, FEVER, CHILLS, NEW CHANGES IN HER URINARY OR BOWEL CONTROL. FALL RISK SCREENING: SCREENING :NO FALLS REPORTED IN THE LAST YEAR CURRENT MEDICATIONS TAKING MULTI FOR HER - TABLET 1 TAB ORALLY DAILY TAKING VITAMIN D3 1000 UNIT CAPSULE 1 CAPSULE ORALLY BID TAKING CALCIUM + D3 600-200 MG-UNIT TABLET 1 TAB ORALLY BID TAKING ZETIA 10MG TABLET TAKE 1 TABLET DAILY TAKING LEVOTHYROXINE SODIUM 25 MCG TABLET 1 TABLET ON AN EMPTY STOMACH IN THE MORNING ORALLY ONCE A DAY TAKING VENLAFAXINE HCL 100 MG TABLET 1.5 TABLET WITH FOOD ORALLY BID TAKING TYLENOL EXTRA STRENGTH 500 MG TABLET 1 TABLET NEEDED ORALLY EVERY 6 HRS TAKING CARVEDILOL 12.5 MG TABLET 1 TAB ORALLY TWICE A DAY TAKING LISINOPRIL 40 MG TABLET 1 TABLET ORALLY ONCE A DAY TAKING AMLODIPINE BESYLATE 5 MG TABLET 1 TABLET ORALLY ONCE A DAY, NOTES: DOSE REDUCTION TAKING TRAMADOL HCL 50 MG TABLET 2 TABS AM 2 TABS PM ORALLY EVERY 6 HRS PRN PAIN MDD=6 TAKING CLONAZEPAM 1 MG TABLET CODE A: 1 TAB ORALLY BID, NOTES: CODE 07 TAKING SYMBICORT 80-4.5 MCG/ACT AEROSOL 2 PUFFS INHALATION TWICE A DAY NEEDED FOR WHEEZING AND COUGHING TAKING CLOBETASOL PROPIONATE 0.05 % CREAM 1 APPLICATION EXTERNALLY TWICE A DAY TO AFFECTED AREAS ON ELBOWS AND LEGS, NOTES: DO NOT APPLY BETWEEN FINGERS OR FACE NOT-TAKING CLOTRIMAZOLE 1 % CREAM 1 APPLICATION EXTERNALLY TWICE A DAY TO GROIN AREA NOT-TAKING BELBUCA 75 MCG FILM 1 FILM TO THE GUM BUCALLY FOR PAIN ONCE A DAY NOT-TAKING HYDROCODONE-ACETAMINOPHEN 5-325 MG TABLET 1 TABLET NEEDED ORALLY FOR PAIN DAILY MDD1 NOT-TAKING MACROBID 100 MG CAPSULE 1 CAPSULE AT BEDTIME WITH FOOD ORALLY BID NOT-TAKING FOSFOMYCIN TROMETHAMINE 3 GM PACKET 1 PACKET MIXED IN 3 TO 4 OUNCES OF WATER ORALLY ONCE NOT-TAKING LEVOFLOXACIN 250 MG TABLET 1 TABLET ORALLY ONCE A DAY, NOTES: CANCEL FOSFOMYCIN (BECAUSE OF COST) MEDICATION LIST REVIEWED AND RECONCILED WITH THE PATIENT PAST MEDICAL HISTORY HTN (ETT 06/11 NEG), HAS SEEN CARDIOLOGY ANXIETY DEPRESSION HYPOTHYROID WITH 2 SMALL CYSTS HX OF C.DIFF TOBACCO ABUSE ETOH ABUSE IN REMISSION OSTEOPOROSIS ON 2018 DEXA, EVAL'D BY DR. RIOS ENDOCRINOLOGY RECOMMENDED BISPHOSPHANATES THYROID NODULES X 2, SUBCENTIMETER NO HISTORY OF BIOPSY HYPERLIPIDEMIA OSTEOARTHRITIS ALLERGIES STATINS (FOR ALLERGY USE ONLY): ACHY, PAINFUL MUSCLES - ALLERGY MAGNESIUM: DIARRHEA - ALLERGY TRAZODONE HCL: MUSCLE ACHES - ALLERGY CYMBALTA: SEVERE STOMACH ACHE - SIDE EFFECTS PROZAC: NAUSEA/VOMITING - ALLERGY AUGMENTIN: DIARRHEA - SIDE EFFECTS GABAPENTIN: SEVERE STOMACH ACHE - SIDE EFFECTS HYDROCODONE-ACETAMINOPHEN: SEVERE DIARRHEA, VOMITING - SIDE EFFECTS SURGICAL HISTORY TONSILLECTOMY TUBAL LIGATION HYSTERECTOMY COLONOSCOPY/ENDOSCOPY TURBT 05/18/17 CYSTOSCOPY FAMILY HISTORY FATHER: , DIAGNOSED WITH OTHER MALIGNANT NEOPLASM OF UNSPECIFIED SITE MOTHER: , UNSPECIFIED HEART DISEASE, OTHER SPECIFIED CONDITIONS INFLUENCING HEALTH STATUS PATERNAL GRAND FATHER: , OTHER MALIGNANT NEOPLASM OF UNSPECIFIED SITE PATERNAL GRAND MOTHER: , OTHER MALIGNANT NEOPLASM OF UNSPECIFIED SITE MATERNAL GRAND FATHER: , UNSPECIFIED HEART DISEASE MATERNAL GRAND MOTHER: , OTHER MALIGNANT NEOPLASM OF UNSPECIFIED SITE 1 BROTHER(S) , 1 SISTER(S) . 1 SON(S) , 1 DAUGHTER(S) - HEALTHY. FATHER: SPINE CAMOTHER: ALZHEIMERSPATERNAL GF: BRAIN AND LUNG CA PATERNAL GM: COLON CA MATERNAL GM: CA UNKNOWNSISTER: ARTHRITIS; BACK SURGERY [id number]: ()BRAIN AND LUNG CA. SOCIAL HISTORY GENERAL: TOBACCO USE ARE YOU A:CURRENT SMOKER ARE YOU INTERESTED IN QUITTING?NOT READY TO QUIT COUNSELED THE PATIENT ON SMOKING EFFECTS, EDUCATION [id number]/28/2020 HOW MANY CIGARETTES A DAY DO YOU SMOKE?6-10 HOW OFTEN DO YOU SMOKE CIGARETTES?EVERY DAY PATIENT COUNSELED ON THE DANGERS OF TOBACCO USE AND URGED TO QUIT:01/25/2020 HAVE YOU HAD A PNEUMOVAX VACCINE?YES MALES, AGE 65-75 WITH 5 PACK SMOKING HISTORY (100 CIGARETTES LIFETIME)YES SMOKING CESSATION INFORMATION GIVEN01/23/2020 VAPORNO E-CIGARETTENO LATEX QUESTIONNAIRE LATEX ALLERGY : HAVE YOU EVER DEVELOPED ANY TYPE OF REACTION AFTER HANDLING LATEX PRODUCTS SUCH RUBBER GLOVES, CONDOMS, DIAPHRAGMS, BALLOONS, SOCKS, OR UNDERWEAR?NO LATEX ALLERGY : HAVE YOU EVER DEVELOPED ANY TYPE OF REACTION DURING OR AFTER DENTAL APPOINTMENT, VAGINAL/RECTAL EXAMINATION, SURGICAL PROCEDURE, OR ANY OTHER EXPOSURE?NO LATEX RISK : HAVE YOU EVER HAD ANY DIFFICULTY BREATHING OR HIVES AFTER EATING OR HANDLING ANY FRUITS, OR VEGETABLES; SUCH KIWI, BANANAS, STONE FRUITS, OR CHESTNUTSNO LATEX RISK : DO YOU HAVE A PREVIOUS PERSONAL HISTORY OF MORE THAN NINE SURGERIES, SPINA BIFIDA, OR REPEATED CATHERIZATIONS? NO LATEX RISK : ARE YOU FREQUENTLY EXPOSED TO LATEX PRODUCTS IN YOUR OCCUPATION?YES DATE ASKED : 01/25/2020 ALCOHOL SCREENING DID YOU HAVE A DRINK CONTAINING ALCOHOL IN THE PAST YEAR?NO POINTS0 INTERPRETATIONNEGATIVE RECREATIONAL DRUG USE DRUG USE?NO CAFFEINE CAFFEINE USE?NO SEXUAL HX HAD SEX IN THE LAST 12 MONTHS (VAGINAL, ORAL, OR ANAL)?NO HAVE YOU EVER HAD AN STD?NO HIV / HEP-C SCREENING HIV TEST OFFERED TO PATIENT:YES DATE OFFERED:09/12/2018 TEST ACCEPTED:NO HEP-C TEST OFFERED TO PATIENT:YES DATE OFFERED:09/12/2018 REASON:PATIENT DECLINED TEST ACCEPTED:NO REASON:PATIENT DECLINED BROCHURE PROVIDED TO PATIENTYES TAOIST [id number] [employer] LANGUAGE LANGUAGES SPOKEN:BURKINAN EDUCATION LEVEL OF EDUCATION:NOT FINISHED COLLEGE LEARNING BARRIERS / SPECIAL NEEDS CHANGE FROM LAST VISIT?NO BARRIERS TO LEARNING?NO HEARING IMPAIRED?NO VISION IMPAIRED?YES COGNITIVELY IMPAIRED?NO :CORRECTIVE LENSES READINESS TO LEARN?YES LEARNING PREFERENCES?NO LEARNING CAPABILITIES PRESENT?YES EMOTIONAL BARRIERS?NO SPECIAL DEVICES?YES :CANE PSYCHOLOGICAL EXAMINER NEEDED?NO DOMESTIC VIOLENCE DO YOU FEEL SAFE IN YOUR ENVIRONMENT?YES OCCUPATION: RETIRED. DIET: REGULAR. EXERCISE: WALKS, SWIMS. MARITAL STATUS: . OTHERS AT HOME: NONE. NEW PATIENT PAIN DIARY TODAY'S VISIT 01/25/2020 PATIENT DESCRIBES PAIN :BURNING, HAVE IT ALL THE TIME, SHARP, STABBING, TENDER, SORE FROM 0-10, WHAT LEVEL IS YOUR PAIN TODAY?9 PRECIPITATING FACTORS ACTIVITY ALLEVIATING FACTORS REST PAIN CLINIC PFS, CLERGY, PUBLIC HEALTH REFERRALS PFS REFERRAL NEEDED?NO CLERGY REFERRAL NEEDED?NO PUBLIC HEALTH REFERRAL NEEDED?NO WAS THE PROVIDER NOTIFIED OF ANY PERTINENT INFO?YES HAS THE PATIENT BEEN EDUCATED REGARDING HIS/HER PLAN OF CARE?YES HAS THE PATIENT BEEN EDUCATED REGARDING PAIN, THE RISK FOR PAIN, THE IMPORTANCE OF EFFECTIVE PAIN MANAGEMENT, AND THE PAIN ASSESSMENT PROCESS?YES ADVANCE DIRECTIVE ADVANCE DIRECTIVE DISCUSSED WITH PATIENT:YES HCP IS DAUGHTER ROSY FOSTER [phone], COPY SCANNED IN DOCUMENTS HOSPITALIZATION/MAJOR DIAGNOSTIC PROCEDURE SEE SURGERIES FRACTURED PELVIS CHILDBIRTH REVIEW OF SYSTEMS REVIEWED BY: PROVIDER: POOJA KENNEY MD . CONSTITUTIONAL: ANY CHANGE IN YOUR MEDICAL CONDITION? NO . CHILLS NO . FEVER NO . INFECTION: DO YOU HAVE NEW INFECTIONS? NO . DO YOU HAVE HISTORY OF MRSA? NO . MUSCULOSKELETAL: ANY NEW PATTERNS OF PAIN OR NUMBNESS? NO . GASTROENTEROLOGY: ANY NEW CHANGE IN BOWEL CONTROL? NO . GENITOURINARY: ANY NEW CHANGE IN BLADDER CONTROL? NO . IS THERE A CHANCE YOU COULD BE ? NO . HEMATOLOGY/LYMPH: DO YOU TAKE ANY BLOOD THINNERS? (FOR EXAMPLE- COUMADIN, PLAVIX, AGGRENOX, PLATEL, PRADAXA, OR XARELTO) NO . WHEN WAS YOUR LAST DOSE? DATE: TIME: . NEUROLOGY: HAVE YOU FALLEN IN THE PAST 12 MONTHS? NO . ANY NEW EXTREMITY NUMBNESS OR WEAKNESS? NO . CARDIOLOGY: DO YOU HAVE A PACEMAKER OR DEFIBRILLATOR? NO . RESPIRATORY: HAVE YOU BEEN SICK IN THE PAST WEEK? YES, SICK WITH DIARRHEA AND VOMITING . FEVER NO . FLU LIKE SYMPTOMS? NO . COUGH NO . INTEGUMENTARY: DO YOU HAVE ANY RASHES OR OPEN SORES? PSORIASIS . ALLERGIC/IMMUNO: ARE YOU ALLERGIC TO IV DYE? NO . ANY NEW ALLERGIES? NO . PSYCHIATRIC: DO YOU HAVE THOUGHTS OF HURTING YOURSELF OR SOMEONE ELSE? NO . ARE YOU ABUSED, NEGLECTED, OR IN AN UNSAFE ENVIRONMENT? NO . ENDOCRINOLOGY: ARE YOU DIABETIC? NO . OTHER: DO YOU NEED ANY PRESCRIPTIONS? NO . IF YES, PLEASE LIST: ____ . ANY NEW PROBLEMS WITH YOUR MEDICATIONS? NO . WHEN DID YOU LAST EAT? ____ . WHEN DID YOU LAST DRINK? ____ . WHAT DID YOU LAST DRINK? ____ . NAME OF PERSON DRIVING YOU HOME? ____ . DO YOU HAVE ANY OTHER QUESTIONS OR CONCERNS PT CONSENT FOR VIRUTAL VISIT, OK FOR VIRTUAL VISIT WITH MD KENNEY.UNABLE TO OBTAIN VITAL SIGNS DUE TO VIRTUAL VISIT. DS . EXAMINATION GENERAL EXAMINATION: TELEMEDICINE USING [employer] APPLICATION. PATIENT IS ALERT O X 3 AND COOPERATIVE. MRI OF THE LUMBAR SPINE DONE ON 01/16/2020 SHOWS SPINAL STENOSIS AND LIGAMENTUM FLAVUM HYPERTROPHY AT L4-L5. 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 MICHELLE' PAIN MANAGEMENT CASE. DUE TO THE LUMBAR RADICULOPATHY, I WOULD LIKE TO MOVE FORWARD WITH A L4-L5 LUMBAR EPIDURAL STEROID INJECTION AT THIS TIME. I DISCUSSED WITH THE PATIENT ABOUT REPLACING KENALOG WITH DEXAMETHASONE, WHICH IS A LESS POTENT STEROID, TO LESSEN THE RISK OF IMMUNOSUPPRESSION. THE PATIENT AGREED ON HAVING BEING TESTED FOR COVID-19 BEFORE THE PROCEDURE. WE DISCUSSED THE BENEFITS, RISKS, AND ALTERNATIVES OF THE INJECTION AND THE PATIENT WOULD LIKE TO PROCEED. I AM LOOKING FOR LONG LASTING PAIN RELIEF FROM THIS INJECTION FOR THE PATIENT. THE PATIENT WILL FOLLOW UP IN SEVERAL WEEKS AFTER HER INJECTION. I FEEL THE PATIENT IS A GOOD CANDIDATE FOR A MILD PROCEDURE, BUT I WOULD LIKE TO SEE HOW THE PATIENT DOES WITH THE LUMBAR EPIDURAL. I WOULD ALSO LIKE TO DISCUSS THE PATIENT'S LAST LUMBAR MRI WITH THE RADIOLOGIST. INSTRUCTIONS WERE GIVEN, QUESTIONS WERE ANSWERED, PATIENT REPORTS UNDERSTANDING AND AGREES WITH THE PLAN. I, KIMBERLEE WHITTEN, DOCUMENTED THE ABOVE INFORMATION ACTING A SCRIBE FOR DR. KENNEY. I HAVE REVIEWED THE ABOVE DOCUMENT, WRITTEN BY KIMBERLEE SULLIVAN AND I VERIFY THAT IT IS ACCURATE. . DISPOSITION & COMMUNICATION FOLLOW UP 1 WEEK (REASON: RQSTING L4-L5 LESI CORINNE; PLEASE NOTATE "NEED NOTE DAY OF PROCEDURE" UNDER REASONS. THANK YOU!!) ELECTRONICALLY SIGNED BY POOJA KENNEY MD, MD ON 01/29/2020 AT 05:25 PM EDT DISCLAIMER : THIS IS A VISIT SUMMARY EXTRACTED FROM THE [employer] CHART. IT IS NOT A COPY OF THE [employer] PROGRESS NOTE. TRACEY
== END ==
LOC: M TMPAIN 14:30 → M PAIN 14:30
PROVIDERS: ATTEND Anesthesiology
DX: M51.16 Intervertebral disc disorders with radiculopathy, lumbar region (principal); M48.062 Spinal stenosis, lumbar region with neurogenic claudication; I10 Essential (primary) hypertension; E03.9 Hypothyroidism, unspecified; F17.210 Nicotine dependence, cigarettes, uncomplicated; Z79.891 Long term (current) use of opiate analgesic; Z79.899 Other long term (current) drug therapy; Z88.5 Allergy status to narcotic agent; Z88.8 Allergy status to other drugs, medicaments and biological substances

== ENCOUNTER → 2020-02-03 | Outpatient (CLI) | payer MEDICARE | LOC: M LABSMTC 09:11 | PROVIDERS: ATTEND Family Medicine | DX: Z01.818 Encounter for other preprocedural examination (principal); Z11.59 Encounter for screening for other viral diseases ==

== ENCOUNTER → 2020-02-06 | Outpatient (CLI) | payer MEDICARE ==
[~2020-02-06] MED LIST changes: +ACET650T61 PO; -AMLO10TA5 PO; +AMLO1TAB25 PO; +AMLO2.5T3 PO; +ISOVUE-M 300 61% 15ML VIAL As Ordered ONE; +LIDOCAINE 1% SDV 30ML VIAL As Ordered ONE; -LISI40TA PO; +LISI40TA4 PO; +PROAAER10 INH; +SYMB80INH PO; +TRAM50TA2 PO; -TYLE650T35 PO; +[UNRECOGNIZED DRUG - CODE] PO; +dexameTHASONE 10MG/1ML VIAL PRES.FREE (J1100 PER 1MG) As Ordered ONE; +diazePAM 5MG TABLET As Ordered ONE; +diphenhydrAMINE 50MG/ML VIAL (J1200) As Ordered ONE; +oxyCODONE 5MG TAB As Ordered ONE
--- NOTE | 2020-02-06 10:44 | REP ---
C-ARM VIEWS LUMBOSACRAL SPINE: CLINICAL HISTORY: Pain. Three C-arm views of the lumbosacral spine region performed during epidural injection by Dr. Arita. Needle is seen in the lower lumbar region. 41 seconds of fluoroscopy time is utilized. Electronically Signed by Larry Cho MD 02/06/2020 11:42 A
--- NOTE | 2020-02-10 02:33 | ECWPNPC ---
PATIENT NAME: FRED MICHELLE : 1950 GENDER: FEMALE VISIT DATE: 02/06/2020 DISCHARGE DATE: 02/06/20 1106 VISIT LOCKED DATE TIME: PHYSICIAN: POOJA KENNEY MD RESOURCE: POOJA KENNEY MD REASON FOR APPOINTMENT 1. L5-S1 WITH CATH JOSE LUISRobert SUN HISTORY OF PRESENT ILLNESS HISTORY OF PRESENT ILLNESS: 69-YEAR-OLD FEMALE PATIENT WITH A HISTORY OF CHRONIC LOW BACK AND LEG PAIN. THE PATIENT DESCRIBES THE PAIN SHARP AND STABBING WITH A PAIN SCORE RANGING FROM 6-9/10 DEPENDING ON PHYSICAL ACTIVITY. THE PATIENT STATES HER PAIN IS MOSTLY ON THE RIGHT SIDE OF HER LOW BACK AND DOWN THE RIGHT LEG. PATIENT DENIES UNEXPLAINABLE WEIGHT LOSS, FEVER, CHILLS, NEW CHANGES ON HER URINARY OR BOWEL CONTROL. PAIN THE PATIENT DESCRIBES THE PAIN... FALL RISK SCREENING: SCREENING :NO FALLS REPORTED IN THE LAST YEAR CURRENT MEDICATIONS TAKING MULTI FOR HER - TABLET 1 TAB ORALLY DAILY, NOTES: 02/05 TAKING VITAMIN D3 1000 UNIT CAPSULE 1 CAPSULE ORALLY BID, NOTES: 02/05 TAKING CALCIUM + D3 600-200 MG-UNIT TABLET 1 TAB ORALLY BID, NOTES: 02/05 TAKING ZETIA 10MG TABLET TAKE 1 TABLET DAILY , NOTES: 02/04 2200 TAKING LEVOTHYROXINE SODIUM 25 MCG TABLET 1 TABLET ON AN EMPTY STOMACH IN THE MORNING ORALLY ONCE A DAY, NOTES: 02/05 TAKING VENLAFAXINE HCL 100 MG TABLET 1.5 TABLET WITH FOOD ORALLY BID, NOTES: 02/05 TAKING TYLENOL EXTRA STRENGTH 500 MG TABLET 1 TABLET NEEDED ORALLY EVERY 6 HRS, NOTES: 02/04 2200 TAKING CARVEDILOL 12.5 MG TABLET 1 TAB ORALLY TWICE A DAY, NOTES: 02/05 TAKING LISINOPRIL 40 MG TABLET 1 TABLET ORALLY ONCE A DAY, NOTES: 02/04 2200 TAKING AMLODIPINE BESYLATE 5 MG TABLET 1 TABLET ORALLY ONCE A DAY, NOTES: 02/05 TAKING CLONAZEPAM 1 MG TABLET CODE A: 1 TAB ORALLY BID, NOTES: 02/05 TAKING SYMBICORT 80-4.5 MCG/ACT AEROSOL 2 PUFFS INHALATION TWICE A DAY NEEDED FOR WHEEZING AND COUGHING, NOTES: 02/05 TAKING CLOBETASOL PROPIONATE 0.05 % CREAM 1 APPLICATION EXTERNALLY TWICE A DAY TO AFFECTED AREAS ON ELBOWS AND LEGS, NOTES: 02/04 TAKING TRAMADOL HCL 50 MG TABLET 2 TABS AM 2 TABS PM ORALLY EVERY 6 HRS PRN PAIN MDD=6, NOTES: 02/05 NOT-TAKING CLOTRIMAZOLE 1 % CREAM 1 APPLICATION EXTERNALLY TWICE A DAY TO GROIN AREA NOT-TAKING BELBUCA 75 MCG FILM 1 FILM TO THE GUM BUCALLY FOR PAIN ONCE A DAY NOT-TAKING HYDROCODONE-ACETAMINOPHEN 5-325 MG TABLET 1 TABLET NEEDED ORALLY FOR PAIN DAILY MDD1 NOT-TAKING MACROBID 100 MG CAPSULE 1 CAPSULE AT BEDTIME WITH FOOD ORALLY BID NOT-TAKING FOSFOMYCIN TROMETHAMINE 3 GM PACKET 1 PACKET MIXED IN 3 TO 4 OUNCES OF WATER ORALLY ONCE NOT-TAKING LEVOFLOXACIN 250 MG TABLET 1 TABLET ORALLY ONCE A DAY, NOTES: CANCEL FOSFOMYCIN (BECAUSE OF COST) MEDICATION LIST REVIEWED AND RECONCILED WITH THE PATIENT PAST MEDICAL HISTORY HTN (ETT 06/11 NEG), HAS SEEN CARDIOLOGY ANXIETY DEPRESSION HYPOTHYROID WITH 2 SMALL CYSTS HX OF C.DIFF TOBACCO ABUSE ETOH ABUSE IN REMISSION OSTEOPOROSIS ON 2017 DEXA, EVAL'D BY DR. RIOS ENDOCRINOLOGY RECOMMENDED BISPHOSPHANATES THYROID NODULES X 2, SUBCENTIMETER NO HISTORY OF BIOPSY HYPERLIPIDEMIA OSTEOARTHRITIS ALLERGIES STATINS (FOR ALLERGY USE ONLY): ACHY, PAINFUL MUSCLES - ALLERGY MAGNESIUM: DIARRHEA - ALLERGY TRAZODONE HCL: MUSCLE ACHES - ALLERGY CYMBALTA: SEVERE STOMACH ACHE - SIDE EFFECTS PROZAC: NAUSEA/VOMITING - ALLERGY AUGMENTIN: DIARRHEA - SIDE EFFECTS GABAPENTIN: SEVERE STOMACH ACHE - SIDE EFFECTS HYDROCODONE-ACETAMINOPHEN: SEVERE DIARRHEA, VOMITING - SIDE EFFECTS SURGICAL HISTORY TONSILLECTOMY TUBAL LIGATION HYSTERECTOMY COLONOSCOPY/ENDOSCOPY TURBT 05/18/17 CYSTOSCOPY FAMILY HISTORY FATHER: , DIAGNOSED WITH OTHER MALIGNANT NEOPLASM OF UNSPECIFIED SITE MOTHER: , UNSPECIFIED HEART DISEASE, OTHER SPECIFIED CONDITIONS INFLUENCING HEALTH STATUS PATERNAL GRAND FATHER: , OTHER MALIGNANT NEOPLASM OF UNSPECIFIED SITE PATERNAL GRAND MOTHER: , OTHER MALIGNANT NEOPLASM OF UNSPECIFIED SITE MATERNAL GRAND FATHER: , UNSPECIFIED HEART DISEASE MATERNAL GRAND MOTHER: , OTHER MALIGNANT NEOPLASM OF UNSPECIFIED SITE 1 BROTHER(S) , 1 SISTER(S) . 1 SON(S) , 1 DAUGHTER(S) - HEALTHY. FATHER: SPINE CAMOTHER: ALZHEIMERSPATERNAL GF: BRAIN AND LUNG CA PATERNAL GM: COLON CA MATERNAL GM: CA UNKNOWNSISTER: ARTHRITIS; BACK SURGERY [id number]: ()BRAIN AND LUNG CA. SOCIAL HISTORY GENERAL: TOBACCO USE ARE YOU A:CURRENT SMOKER ARE YOU INTERESTED IN QUITTING?NOT READY TO QUIT COUNSELED THE PATIENT ON SMOKING EFFECTS, EDUCATION [id number]/28/2020 HOW MANY CIGARETTES A DAY DO YOU SMOKE?6-10 HOW OFTEN DO YOU SMOKE CIGARETTES?EVERY DAY PATIENT COUNSELED ON THE DANGERS OF TOBACCO USE AND URGED TO QUIT:02/05/2020 HAVE YOU HAD A PNEUMOVAX VACCINE?YES MALES, AGE 65-75 WITH 5 PACK SMOKING HISTORY (100 CIGARETTES LIFETIME)YES SMOKING CESSATION INFORMATION GIVEN01/23/2020 VAPORNO E-CIGARETTENO LATEX QUESTIONNAIRE LATEX ALLERGY : HAVE YOU EVER DEVELOPED ANY TYPE OF REACTION AFTER HANDLING LATEX PRODUCTS SUCH RUBBER GLOVES, CONDOMS, DIAPHRAGMS, BALLOONS, SOCKS, OR UNDERWEAR?NO LATEX ALLERGY : HAVE YOU EVER DEVELOPED ANY TYPE OF REACTION DURING OR AFTER DENTAL APPOINTMENT, VAGINAL/RECTAL EXAMINATION, SURGICAL PROCEDURE, OR ANY OTHER EXPOSURE?NO LATEX RISK : HAVE YOU EVER HAD ANY DIFFICULTY BREATHING OR HIVES AFTER EATING OR HANDLING ANY FRUITS, OR VEGETABLES; SUCH KIWI, BANANAS, STONE FRUITS, OR CHESTNUTSNO LATEX RISK : DO YOU HAVE A PREVIOUS PERSONAL HISTORY OF MORE THAN NINE SURGERIES, SPINA BIFIDA, OR REPEATED CATHERIZATIONS? NO LATEX RISK : ARE YOU FREQUENTLY EXPOSED TO LATEX PRODUCTS IN YOUR OCCUPATION?YES DATE ASKED : 02/05/2020 ALCOHOL SCREENING DID YOU HAVE A DRINK CONTAINING ALCOHOL IN THE PAST YEAR?NO POINTS0 INTERPRETATIONNEGATIVE RECREATIONAL DRUG USE DRUG USE?NO CAFFEINE CAFFEINE USE?NO SEXUAL HX HAD SEX IN THE LAST 12 MONTHS (VAGINAL, ORAL, OR ANAL)?NO HAVE YOU EVER HAD AN STD?NO HIV / HEP-C SCREENING HIV TEST OFFERED TO PATIENT:YES DATE OFFERED:09/12/2018 TEST ACCEPTED:NO HEP-C TEST OFFERED TO PATIENT:YES DATE OFFERED:09/12/2018 REASON:PATIENT DECLINED TEST ACCEPTED:NO REASON:PATIENT DECLINED BROCHURE PROVIDED TO PATIENTYES SABIANIST [id number] Z[employer]RIAN LANGUAGE LANGUAGES SPOKEN:POLISH EDUCATION LEVEL OF EDUCATION:NOT FINISHED COLLEGE LEARNING BARRIERS / SPECIAL NEEDS CHANGE FROM LAST VISIT?NO BARRIERS TO LEARNING?NO HEARING IMPAIRED?NO VISION IMPAIRED?YES COGNITIVELY IMPAIRED?NO :CORRECTIVE LENSES READINESS TO LEARN?YES LEARNING PREFERENCES?NO LEARNING CAPABILITIES PRESENT?YES EMOTIONAL BARRIERS?NO SPECIAL DEVICES?YES :CANE FIBREGLASS GUN HAND NEEDED?NO DOMESTIC VIOLENCE DO YOU FEEL SAFE IN YOUR ENVIRONMENT?YES OCCUPATION: RETIRED. DIET: REGULAR. EXERCISE: WALKS, SWIMS. MARITAL STATUS: . OTHERS AT HOME: NONE. NEW PATIENT PAIN DIARY TODAY'S VISIT 02/05/20 PATIENT DESCRIBES PAIN :BURNING, HAVE IT ALL THE TIME, SHARP, STABBING, TENDER, SORE FROM 0-10, WHAT LEVEL IS YOUR PAIN TODAY?9 PRECIPITATING FACTORS ACTIVITY ALLEVIATING FACTORS REST PAIN CLINIC PFS, CLERGY, PUBLIC HEALTH REFERRALS PFS REFERRAL NEEDED?NO CLERGY REFERRAL NEEDED?NO PUBLIC HEALTH REFERRAL NEEDED?NO WAS THE PROVIDER NOTIFIED OF ANY PERTINENT INFO?YES HAS THE PATIENT BEEN EDUCATED REGARDING HIS/HER PLAN OF CARE?YES HAS THE PATIENT BEEN EDUCATED REGARDING PAIN, THE RISK FOR PAIN, THE IMPORTANCE OF EFFECTIVE PAIN MANAGEMENT, AND THE PAIN ASSESSMENT PROCESS?YES ADVANCE DIRECTIVE ADVANCE DIRECTIVE DISCUSSED WITH PATIENT:YES HCP IS DAUGHTER ROSY FOSTER [phone], COPY SCANNED IN DOCUMENTS HOSPITALIZATION/MAJOR DIAGNOSTIC PROCEDURE SEE SURGERIES FRACTURED PELVIS CHILDBIRTH REVIEW OF SYSTEMS REVIEWED BY: PROVIDER: POOJA KENNEY MD . CONSTITUTIONAL: ANY CHANGE IN YOUR MEDICAL CONDITION? NO . CHILLS NO . FEVER NO . INFECTION: DO YOU HAVE NEW INFECTIONS? NO . DO YOU HAVE HISTORY OF MRSA? NO . MUSCULOSKELETAL: ANY NEW PATTERNS OF PAIN OR NUMBNESS? NO . GASTROENTEROLOGY: ANY NEW CHANGE IN BOWEL CONTROL? NO . GENITOURINARY: ANY NEW CHANGE IN BLADDER CONTROL? NO . IS THERE A CHANCE YOU COULD BE ? NO . HEMATOLOGY/LYMPH: DO YOU TAKE ANY BLOOD THINNERS? (FOR EXAMPLE- COUMADIN, PLAVIX, AGGRENOX, PLATEL, PRADAXA, OR XARELTO) NO . WHEN WAS YOUR LAST DOSE? DATE: TIME: . NEUROLOGY: HAVE YOU FALLEN IN THE PAST 12 MONTHS? NO . ANY NEW EXTREMITY NUMBNESS OR WEAKNESS? NO . CARDIOLOGY: DO YOU HAVE A PACEMAKER OR DEFIBRILLATOR? NO . RESPIRATORY: HAVE YOU BEEN SICK IN THE PAST WEEK? NO . FEVER NO . FLU LIKE SYMPTOMS? NO . COUGH NO . INTEGUMENTARY: DO YOU HAVE ANY RASHES OR OPEN SORES? YES, PSORIASIS . ALLERGIC/IMMUNO: ARE YOU ALLERGIC TO IV DYE? NO . ANY NEW ALLERGIES? NO . PSYCHIATRIC: DO YOU HAVE THOUGHTS OF HURTING YOURSELF OR SOMEONE ELSE? NO . ARE YOU ABUSED, NEGLECTED, OR IN AN UNSAFE ENVIRONMENT? NO . ENDOCRINOLOGY: ARE YOU DIABETIC? NO . OTHER: DO YOU NEED ANY PRESCRIPTIONS? NO . IF YES, PLEASE LIST: ____ . ANY NEW PROBLEMS WITH YOUR MEDICATIONS? NO . WHEN DID YOU LAST EAT? ____02/05/201999 . WHEN DID YOU LAST DRINK? ____02/06/20 06 . WHAT DID YOU LAST DRINK? ____WATER . NAME OF PERSON DRIVING YOU HOME? ____DOLLY . DO YOU HAVE ANY OTHER QUESTIONS OR CONCERNS NO . VITAL SIGNS WT 166.4 LBS, HT 62.5 IN, BMI 29.95 INDEX, BP 127/75 MM HG, HR 92 /MIN, RR 18 /MIN, TEMP 96.3 F, OXYGEN SAT % 96%, NA INITIALS AW 0816. EXAMINATION GENERAL EXAMINATION: THE PATIENT IS ALERT, ORIENTED TIMES THREE AND COOPERATIVE. CRANIAL NERVES ARE GROSSLY NORMAL. HEART SHOWS REGULAR RHYTHM, NO MURMURS AND NO GALLOPS. LUNGS HAVE SOME EXPIRATORY WHEEZE. THE PATIENT HAS A POSITIVE STRAIGHT LEG RAISE ON THE RIGHT AT 40 DEGREES. MRI OF THE LUMBAR SPINE SHOWS BULGING DISC AND STENOSIS AT L4-L5. ASSESSMENTS LUMBAR STENOSIS WITH NEUROGENIC CLAUDICATION - M48.062 (PRIMARY) INTERVERTEBRAL DISC DISORDERS WITH RADICULOPATHY, LUMBAR REGION - M51.16 TREATMENT INTERVERTEBRAL DISC DISORDERS WITH RADICULOPATHY, LUMBAR REGION [facility] FLUORO GUIDE SPINE INJECTION (PAIN)[id number] CLINICAL NOTES: WE DISCUSSED SEVERAL ALTERNATIVES WITH MS. MICHELLE REGARDING HER TREATMENT OPTIONS AND CARE. I AM LOOKING FOR LONG LASTING PAIN RELIEF FOR THIS PATIENT. THE PATIENT IS HERE TODAY FOR A LUMBAR EPIDURAL STEROID INJECTION AT L4-L5. SHE IS EXPERIENCING SOME EXPIRATORY WHEEZING, SO WE WILL GIVE HER RESPIRATORY THERAPY BEFORE THE PROCEDURE. THE PATIENT IS A MILD CANDIDATE. PROCEDURES PRE PROCEDURE DIAGNOSIS LUMBAR SPINAL STENOSIS, LUMBAR DISC DISORDER WITH RADICULOPATHY POST PROCEDURE DIAGNOSIS LUMBAR SPINAL STENOSIS, LUMBAR DISC DISORDER WITH RADICULOPATHY PROCEDURE LUMBAR EPIDURAL STEROID INJECTION UNDER FLUOROSCOPIC GUIDANCE SURGEON DR. POOJA KENNEY VACUUM KETTLE COOK NONE ANESTHESIA LOCAL PRE PROCEDURE NOTE THE PATIENT HAS A HISTORY OF CHRONIC LOW BACK PAIN. I EVALUATED THE PATIENT AND REVIEWED THE CHART. I WENT OVER THE RISKS, ALTERNATIVES, AND BENEFITS ASSOCIATED WITH THIS PROCEDURE. I DISCUSSED WITH THE PATIENT THAT THE USE OF STEROIDS MAY CONTRIBUTE TO IMMUNOSUPPRESSION OF HER BODY AGAINST INFECTIONS SUCH THE LIRA VIRUS, COVID-19. SHE IS AWARE OF THE POTENTIAL COMPLICATIONS ASSOCIATED WITH AN INFECTION OF THIS VIRUS INCLUDING . THE PATIENT WOULD LIKE TO PROCEED AND GIVE CONSENT TO PERFORMED THE PROCEDURE. THE PATIENT DENIES UNEXPLAINABLE WEIGHT LOSS, FEVER, CHILLS, OR NEW CHANGES IN URINARY OR BOWEL CONTROL. THE PATIENT IS COVID-19 NEGATIVE DESCRIPTION OF PROCEDURE THE PATIENT WAS BROUGHT TO THE PROCEDURE ROOM AND PLACED IN THE PRONE POSITION. THE LUMBOSACRAL AREA WAS CLEANED WITH BETADINE SOLUTION AND DRAPED ASEPTICALLY. THE PROCEDURE WAS DONE UNDER STERILE CONDITIONS. I CHECKED LATERALITY AND THE LEVEL WHERE THE PROCEDURE WAS GOING TO BE PERFORMED WITH THE PATIENT AND THE SUPPORTING STAFF AT THE MOMENT OF THE TIME OUT IN THE PROCEDURE ROOM. UNDER FLUOROSCOPIC GUIDANCE, THE TARGET POINT WAS SELECTED AT THE INTERLAMINAR LEVEL OF L4-L5. LIDOCAINE WAS USED TO NUMB THE SKIN AND THE SUBCUTANEOUS TISSUE BELOW IT. EPIDURAL TUOHY NEEDLE, 17-GAUGE, WAS ADVANCED UNDER FLUOROSCOPIC GUIDANCE AND FOLLOWING PATIENT FEEDBACK UNTIL THE EPIDURAL SPACE WAS REACHED 7 CM DEEP INTO THE SKIN BY THE LOSS OF RESISTANCE TECHNIQUE AND I REACHED THE LIGAMENTUM FLAVUM AND MEANT RESISTANCES. I INJECTED ISOVUE M DYE 30%, 0.25 ML, SLOWLY SHOWING ADEQUATE SPREAD BUT THEN THERE WAS SOME RESISTANCE. I WAS CONCERNED WITH PUSHING DEEPER AND GOING INTRATHECAL, SO I DECIDED TO GO TO L5-S1 WITH A 16-GAUGE NEEDLE. I REACHED THE EPIDURAL SPACE 7 CM DEEP INTO THE SKIN BY THE LOSS OF RESISTANCE TECHNIQUE. I ADVANCED A 19-GAUGE CATHETER TO L4-L5 WITH ADEQUATE SPREAD OF THE DYE. THE DYE WAS GOING DOWN TO L5-S1, WHICH CONFIRMED THE STENOSIS AT L4-L5. THEN, A SOLUTION OF 3 ML OF NORMAL SALINE WITH DEXAMETHASONE 10 MG WAS INJECTED SLOWLY FOLLOWING PATIENT FEEDBACK. THERE WAS NO EVIDENCE OF BLOOD, PARESTHESIA OR CEREBROSPINAL FLUID DURING THE PROCEDURE. THE PATIENT WAS SENT TO THE RECOVERY ROOM. THE PATIENT WAS MOVING THE EXTREMITIES AND DOING WELL. THERE WAS NO COMPLICATION DURING THE PROCEDURE. FLUOROSCOPY TIME WAS 41 SECONDS POST PROCEDURE NOTE THE PATIENT WILL BE SEEN IN A FOLLOW UP IN THE NEXT FEW WEEKS. I AM LOOKING FOR LONG LASTING PAIN RELIEF FOR THE PATIENT WITH THIS INJECTION. INSTRUCTIONS WERE GIVEN, QUESTIONS WERE ANSWERED, AND THE PATIENT EXPRESSED UNDERSTANDING AND AGREES WITH THE PLAN. I INSTRUCTED THE PATIENT TO STAY HOME, IF POSSIBLE, FOR A WEEK DUE TO COVID-19. I, TONI TRIPLETT, DOCUMENTED THE ABOVE INFORMATION ACTING A SCRIBE FOR DR. KENNEY. I HAVE REVIEWED THE ABOVE DOCUMENT, WRITTEN BY LAURIE CORTEZ, AND I VERIFY THAT IT IS ACCURATE PROCEDURE CODES 63589 LUMBAR/SACRAL W/ IMAGING DISPOSITION & COMMUNICATION FOLLOW UP F/UP WITH GUS MERCEDES IN 2 WEEKS (REASON: POST-PROCEDURE F/UP-MILD CANDIDATE) ELECTRONICALLY SIGNED BY POOJA KENNEY MD, MD ON 02/09/2020 AT 10:23 AM EDT DISCLAIMER : THIS IS A VISIT SUMMARY EXTRACTED FROM THE [employer] CHART. IT IS NOT A COPY OF THE [employer] PROGRESS NOTE. TRACEY
== END ==
LOC: M PAIN 08:30
PROVIDERS: ATTEND Anesthesiology
DX: M48.062 Spinal stenosis, lumbar region with neurogenic claudication (principal); M51.16 Intervertebral disc disorders with radiculopathy, lumbar region; G89.29 Other chronic pain; I10 Essential (primary) hypertension; Z86.59 Personal history of other mental and behavioral disorders; E03.9 Hypothyroidism, unspecified; Z86.19 Personal history of other infectious and parasitic diseases; F17.210 Nicotine dependence, cigarettes, uncomplicated; Z88.1 Allergy status to other antibiotic agents; Z88.5 Allergy status to narcotic agent; Z88.8 Allergy status to other drugs, medicaments and biological substances; Z79.891 Long term (current) use of opiate analgesic; Z79.899 Other long term (current) drug therapy
CPT/HCPCS: 62323; 94640; 94760; J1100; Q9967

== ENCOUNTER → 2020-02-20 | Outpatient (CLI) | payer MEDICARE ==
[~2020-02-20] MED LIST changes: -ACET650T61 PO; +AMLO10TA5 PO; -AMLO1TAB25 PO; -AMLO2.5T3 PO; -ISOVUE-M 300 61% 15ML VIAL As Ordered ONE; -LIDOCAINE 1% SDV 30ML VIAL As Ordered ONE; +LISI40TA PO; -LISI40TA4 PO; -PROAAER10 INH; -SYMB80INH PO; -TRAM50TA2 PO; +TYLE650T35 PO; -[UNRECOGNIZED DRUG - CODE] PO; -dexameTHASONE 10MG/1ML VIAL PRES.FREE (J1100 PER 1MG) As Ordered ONE; -diazePAM 5MG TABLET As Ordered ONE; -diphenhydrAMINE 50MG/ML VIAL (J1200) As Ordered ONE; -oxyCODONE 5MG TAB As Ordered ONE
--- NOTE | 2020-02-24 01:29 | ECWPNPC ---
PATIENT NAME: FRED MICHELLE : 1950 GENDER: FEMALE VISIT DATE: 02/20/2020 DISCHARGE DATE: 02/20/20 1615 VISIT LOCKED DATE TIME: PHYSICIAN: POOJA KENNEY MD RESOURCE: POOJA KENNEY MD REASON FOR APPOINTMENT 1. [phone]-POST-PROCEDURE F/UP-MILD CANDIDATE HISTORY OF PRESENT ILLNESS HISTORY OF PRESENT ILLNESS: PAIN THE PATIENT DESCRIBES THE PAIN... SEVERITY - PAIN SCORE OF8/10 LOCATIONSLOWER BACK, WITH RADIATION TO, RIGHT LEG LOW BACK DOWN RIGHT BUTTOCKS AND LEG, LEFT BUTTOCKS QUALITYACHING , SHARP, STABBING DURATIONCONTINUOUS PAIN IS INCREASED BY:OTHERS PROLONG SITTING, WALKING PAIN IS DECREASED BY:OTHERS REST NOTES: LIMITS HIM ON WHAT HE'S ABLE TO DO PERMISSION FROM PATIENT WAS RECEIVED TO DO TELEMEDICINE VISIT USING ZOOM APPLICATION. 69 YEAR OLD FEMALE PATIENT WITH A HISTORY OF CHRONIC LOW BACK AND LEG PAIN. THE PATIENT DESCRIBES HER PAIN BURNING, HAVE IT ALL THE TIME, SHARP, STABBING, TENDER, SORE WITH A PAIN SCORE OF 6-10/10 DEPENDING ON PHYSICAL ACTIVITY. THE PATIENT STATES HER PAIN BEGINS IN HER LOW BACK AND RADIATES DOWN BOTH LEGS, BUT THE PAIN IS WORSE IN HER RIGHT LEG. THE PATIENT RECEIVED A LUMBAR EPIDURAL STEROID INJECTION ON 02/06/2020 THAT SHE SAYS PROVIDED HER WITH ABOUT A WEEK AND HALF OF ADEQUATE PAIN RELIEF, BUT OVER THE WEEKEND HER PAIN STARTED RETURNING. THE PATIENT SAYS HER PAIN INCREASES WITH ACTIVITIES AND IS AFFECTING HER ABILITY TO PERFORM HER DAILY ACTIVITIES SUCH MOVING AROUND, COOKING, AND CLEANING. THE PATIENT DENIES UNEXPLAINED WEIGHT LOSS, FEVER, CHILLS, NEW CHANGES IN HER URINARY OR BOWEL CONTROL. FALL RISK SCREENING: SCREENING :NO FALLS REPORTED IN THE LAST YEAR GENERAL: -. PAIN SCREENING: PATIENT HAS A COMPLAINT OF ACUTE OR CHRONIC PAIN :NO NURSING NOTE: -. CURRENT MEDICATIONS TAKING MULTI FOR HER - TABLET 1 TAB ORALLY DAILY TAKING VITAMIN D3 1000 UNIT CAPSULE 1 CAPSULE ORALLY BID TAKING CALCIUM + D3 600-200 MG-UNIT TABLET 1 TAB ORALLY BID TAKING ZETIA 10MG TABLET TAKE 1 TABLET DAILY TAKING LEVOTHYROXINE SODIUM 25 MCG TABLET 1 TABLET ON AN EMPTY STOMACH IN THE MORNING ORALLY ONCE A DAY TAKING VENLAFAXINE HCL 100 MG TABLET 1.5 TABLET WITH FOOD ORALLY BID TAKING CARVEDILOL 12.5 MG TABLET 1 TAB ORALLY TWICE A DAY TAKING TYLENOL EXTRA STRENGTH 500 MG TABLET 1 TABLET NEEDED ORALLY EVERY 6 HRS TAKING LISINOPRIL 40 MG TABLET 1 TABLET ORALLY ONCE A DAY TAKING AMLODIPINE BESYLATE 5 MG TABLET 1 TABLET ORALLY ONCE A DAY TAKING CLONAZEPAM 1 MG TABLET CODE A: 1 TAB ORALLY BID TAKING SYMBICORT 80-4.5 MCG/ACT AEROSOL 2 PUFFS INHALATION TWICE A DAY NEEDED FOR WHEEZING AND COUGHING TAKING CLOBETASOL PROPIONATE 0.05 % CREAM 1 APPLICATION EXTERNALLY TWICE A DAY TO AFFECTED AREAS ON ELBOWS AND LEGS TAKING TRAMADOL HCL 50 MG TABLET 2 TABS AM 2 TABS PM ORALLY EVERY 6 HRS PRN PAIN MDD=6 NOT-TAKING CLOTRIMAZOLE 1 % CREAM 1 APPLICATION EXTERNALLY TWICE A DAY TO GROIN AREA NOT-TAKING BELBUCA 75 MCG FILM 1 FILM TO THE GUM BUCALLY FOR PAIN ONCE A DAY NOT-TAKING HYDROCODONE-ACETAMINOPHEN 5-325 MG TABLET 1 TABLET NEEDED ORALLY FOR PAIN DAILY MDD1 NOT-TAKING MACROBID 100 MG CAPSULE 1 CAPSULE AT BEDTIME WITH FOOD ORALLY BID NOT-TAKING FOSFOMYCIN TROMETHAMINE 3 GM PACKET 1 PACKET MIXED IN 3 TO 4 OUNCES OF WATER ORALLY ONCE NOT-TAKING LEVOFLOXACIN 250 MG TABLET 1 TABLET ORALLY ONCE A DAY, NOTES: CANCEL FOSFOMYCIN (BECAUSE OF COST) MEDICATION LIST REVIEWED AND RECONCILED WITH THE PATIENT PAST MEDICAL HISTORY HTN (ETT 06/11 NEG), HAS SEEN CARDIOLOGY ANXIETY DEPRESSION HYPOTHYROID WITH 2 SMALL CYSTS HX OF C.DIFF TOBACCO ABUSE ETOH ABUSE IN REMISSION OSTEOPOROSIS ON 2017 DEXA, EVAL'D BY DR. RIOS ENDOCRINOLOGY RECOMMENDED BISPHOSPHANATES THYROID NODULES X 2, SUBCENTIMETER NO HISTORY OF BIOPSY HYPERLIPIDEMIA OSTEOARTHRITIS ALLERGIES STATINS (FOR ALLERGY USE ONLY): ACHY, PAINFUL MUSCLES - ALLERGY MAGNESIUM: DIARRHEA - ALLERGY TRAZODONE HCL: MUSCLE ACHES - ALLERGY CYMBALTA: SEVERE STOMACH ACHE - SIDE EFFECTS PROZAC: NAUSEA/VOMITING - ALLERGY AUGMENTIN: DIARRHEA - SIDE EFFECTS GABAPENTIN: SEVERE STOMACH ACHE - SIDE EFFECTS HYDROCODONE-ACETAMINOPHEN: SEVERE DIARRHEA, VOMITING - SIDE EFFECTS SURGICAL HISTORY TONSILLECTOMY TUBAL LIGATION HYSTERECTOMY COLONOSCOPY/ENDOSCOPY TURBT 05/18/17 CYSTOSCOPY FAMILY HISTORY FATHER: , DIAGNOSED WITH OTHER MALIGNANT NEOPLASM OF UNSPECIFIED SITE MOTHER: , UNSPECIFIED HEART DISEASE, OTHER SPECIFIED CONDITIONS INFLUENCING HEALTH STATUS PATERNAL GRAND FATHER: , OTHER MALIGNANT NEOPLASM OF UNSPECIFIED SITE PATERNAL GRAND MOTHER: , OTHER MALIGNANT NEOPLASM OF UNSPECIFIED SITE MATERNAL GRAND FATHER: , UNSPECIFIED HEART DISEASE MATERNAL GRAND MOTHER: , OTHER MALIGNANT NEOPLASM OF UNSPECIFIED SITE 1 BROTHER(S) , 1 SISTER(S) . 1 SON(S) , 1 DAUGHTER(S) - HEALTHY. FATHER: SPINE CAMOTHER: ALZHEIMERSPATERNAL GF: BRAIN AND LUNG CA PATERNAL GM: COLON CA MATERNAL GM: CA UNKNOWNSISTER: ARTHRITIS; BACK SURGERY [id number]: ()BRAIN AND LUNG CA. SOCIAL HISTORY GENERAL: TOBACCO USE ARE YOU A:CURRENT SMOKER ARE YOU INTERESTED IN QUITTING?NOT READY TO QUIT HOW MANY CIGARETTES A DAY DO YOU SMOKE?6-10 HOW SOON AFTER YOU WAKE UP DO YOU SMOKE YOUR FIRST CIGARETTE?31-60 MIN HOW OFTEN DO YOU SMOKE CIGARETTES?SOME DAYS, BUT NOT EVERY DAY PATIENT COUNSELED ON THE DANGERS OF TOBACCO USE AND URGED TO QUIT:02/20/2020 LATEX QUESTIONNAIRE LATEX ALLERGY : HAVE YOU EVER DEVELOPED ANY TYPE OF REACTION AFTER HANDLING LATEX PRODUCTS SUCH RUBBER GLOVES, CONDOMS, DIAPHRAGMS, BALLOONS, SOCKS, OR UNDERWEAR?NO LATEX ALLERGY : HAVE YOU EVER DEVELOPED ANY TYPE OF REACTION DURING OR AFTER DENTAL APPOINTMENT, VAGINAL/RECTAL EXAMINATION, SURGICAL PROCEDURE, OR ANY OTHER EXPOSURE?NO LATEX RISK : HAVE YOU EVER HAD ANY DIFFICULTY BREATHING OR HIVES AFTER EATING OR HANDLING ANY FRUITS, OR VEGETABLES; SUCH KIWI, BANANAS, STONE FRUITS, OR CHESTNUTSNO LATEX RISK : DO YOU HAVE A PREVIOUS PERSONAL HISTORY OF MORE THAN NINE SURGERIES, SPINA BIFIDA, OR REPEATED CATHERIZATIONS? NO LATEX RISK : ARE YOU FREQUENTLY EXPOSED TO LATEX PRODUCTS IN YOUR OCCUPATION?NO DATE ASKED : 02/20/2020 ALCOHOL SCREENING DID YOU HAVE A DRINK CONTAINING ALCOHOL IN THE PAST YEAR?NO POINTS0 INTERPRETATIONNEGATIVE RECREATIONAL DRUG USE DRUG USE?NO CAFFEINE CAFFEINE USE?NO SEXUAL HX HAD SEX IN THE LAST 12 MONTHS (VAGINAL, ORAL, OR ANAL)?NO HAVE YOU EVER HAD AN STD?NO HIV / HEP-C SCREENING HIV TEST OFFERED TO PATIENT:YES DATE OFFERED:09/12/2018 TEST ACCEPTED:NO HEP-C TEST OFFERED TO PATIENT:YES DATE OFFERED:09/12/2018 REASON:PATIENT DECLINED TEST ACCEPTED:NO REASON:PATIENT DECLINED BROCHURE PROVIDED TO PATIENTYES SCIENTOLOGIST [id number] HINDUISM LANGUAGE LANGUAGES SPOKEN:IRISH EDUCATION LEVEL OF EDUCATION:NOT FINISHED COLLEGE LEARNING BARRIERS / SPECIAL NEEDS CHANGE FROM LAST VISIT?NO BARRIERS TO LEARNING?NO HEARING IMPAIRED?NO VISION IMPAIRED?YES :CORRECTIVE LENSES COGNITIVELY IMPAIRED?NO READINESS TO LEARN?YES LEARNING PREFERENCES?NO LEARNING CAPABILITIES PRESENT?YES EMOTIONAL BARRIERS?NO SPECIAL DEVICES?YES :CANE CRAS NEEDED?NO DOMESTIC VIOLENCE DO YOU FEEL SAFE IN YOUR ENVIRONMENT?YES OCCUPATION: RETIRED. DIET: REGULAR. EXERCISE: WALKS, SWIMS. MARITAL STATUS: . OTHERS AT HOME: NONE. NEW PATIENT PAIN DIARY TODAY'S VISIT 02/20/20 PATIENT DESCRIBES PAIN :BURNING, HAVE IT ALL THE TIME, SHARP, STABBING, TENDER, SORE FROM 0-10, WHAT LEVEL IS YOUR PAIN TODAY?9 PRECIPITATING FACTORS ACTIVITY ALLEVIATING FACTORS REST IMPACT ON FUNCTION LIMITS HER ON WHAT SHE IS ABLE TO DO. SHE STILL DOES THINGS BUT SHE HAS TO DO IT IN STEPS PAIN CLINIC PFS, CLERGY, PUBLIC HEALTH REFERRALS PFS REFERRAL NEEDED?NO CLERGY REFERRAL NEEDED?NO PUBLIC HEALTH REFERRAL NEEDED?NO HAS THE PATIENT BEEN EDUCATED REGARDING HIS/HER PLAN OF CARE?YES HAS THE PATIENT BEEN EDUCATED REGARDING PAIN, THE RISK FOR PAIN, THE IMPORTANCE OF EFFECTIVE PAIN MANAGEMENT, AND THE PAIN ASSESSMENT PROCESS?YES ADVANCE DIRECTIVE ADVANCE DIRECTIVE DISCUSSED WITH PATIENT:YES HCP IS DAUGHTER ROSY FOSTER [phone], COPY SCANNED IN DOCUMENTS HOSPITALIZATION/MAJOR DIAGNOSTIC PROCEDURE SEE SURGERIES FRACTURED PELVIS CHILDBIRTH REVIEW OF SYSTEMS REVIEWED BY: PROVIDER: POOJA KENNEY MD . CONSTITUTIONAL: ANY CHANGE IN YOUR MEDICAL CONDITION? NO . CHILLS NO . FEVER NO . INFECTION: DO YOU HAVE NEW INFECTIONS? NO . DO YOU HAVE HISTORY OF MRSA? NO . MUSCULOSKELETAL: ANY NEW PATTERNS OF PAIN OR NUMBNESS? NO . GASTROENTEROLOGY: ANY NEW CHANGE IN BOWEL CONTROL? NO . GENITOURINARY: ANY NEW CHANGE IN BLADDER CONTROL? NO . IS THERE A CHANCE YOU COULD BE ? NO . HEMATOLOGY/LYMPH: DO YOU TAKE ANY BLOOD THINNERS? (FOR EXAMPLE- COUMADIN, PLAVIX, AGGRENOX, PLATEL, PRADAXA, OR XARELTO) NO . WHEN WAS YOUR LAST DOSE? DATE: TIME: . NEUROLOGY: HAVE YOU FALLEN IN THE PAST 12 MONTHS? NO . ANY NEW EXTREMITY NUMBNESS OR WEAKNESS? NO . CARDIOLOGY: DO YOU HAVE A PACEMAKER OR DEFIBRILLATOR? NO . RESPIRATORY: HAVE YOU BEEN SICK IN THE PAST WEEK? NO . FEVER NO . FLU LIKE SYMPTOMS? NO . COUGH NO . INTEGUMENTARY: DO YOU HAVE ANY RASHES OR OPEN SORES? YES, PSORIOSIS . ALLERGIC/IMMUNO: ARE YOU ALLERGIC TO IV DYE? NO . ANY NEW ALLERGIES? NO . PSYCHIATRIC: DO YOU HAVE THOUGHTS OF HURTING YOURSELF OR SOMEONE ELSE? NO . ARE YOU ABUSED, NEGLECTED, OR IN AN UNSAFE ENVIRONMENT? NO . ENDOCRINOLOGY: ARE YOU DIABETIC? NO . OTHER: DO YOU NEED ANY PRESCRIPTIONS? NO . IF YES, PLEASE LIST: ____ . ANY NEW PROBLEMS WITH YOUR MEDICATIONS? NO . WHEN DID YOU LAST EAT? ____ . WHEN DID YOU LAST DRINK? ____ . WHAT DID YOU LAST DRINK? ____ . NAME OF PERSON DRIVING YOU HOME? ____ . DO YOU HAVE ANY OTHER QUESTIONS OR CONCERNS NO . EXAMINATION GENERAL: TELEMEDICINE USING ZOOM APPLICATION. PATIENT IS ALERT O X 3 AND COOPERATIVE. MRI OF THE LUMBAR SPINE DONE ON 01/16/2020 SHOWS HYPERTROPHY OF LIGAMENTUM FLAVUM WITH RIGHT SIDE AT 6.6 MM AND 6.8 MM ON THE LEFT SIDE, AND 3 MM SPONDYLOLISTHESIS AT L4-L5. 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 MICHELLE' PAIN MANAGEMENT CASE. I DISCUSSED THE PATIENT'S LUMBAR MRI WITH THE RADIOLOGIST. THE THICKNESS OF THE LIGAMENTUM FLAVUM IS 6.6 MM ON THE RIGHT SIDE AND 6.8 ON THE LEFT SIDE. THEREFORE, I FEEL THE PATIENT IS A GOOD CANDIDATE FOR THE MILD PROCEDURE AND I WILL REQUEST AUTHORIZATION FOR THE PROCEDURE. THE PATIENT HAS SEVERE CANAL STENOSIS AT L4-L5, THEREFORE I PLAN TO START AT THAT LEVEL ON BOTH SIDES AND POSSIBLY ON BOTH SIDES AT L3-L4 WELL. I AM ORDERING FOR A AP/LATERAL/FLEXION/EXTENSION LUMBAR X-RAY TO BE DONE TO CHECK FOR SPINE STABILITY. THE PATIENT'S LAST EPIDURAL DONE TWO WEEKS PROVIDED LESS THAN TWO WEEKS OF PAIN RELIEF FOR HER. THE PATIENT WILL FOLLOW UP WITH ME IN TWO WEEKS TO REVIEW HER X-RAY STUDY. INSTRUCTIONS WERE GIVEN, QUESTIONS WERE ANSWERED, PATIENT REPORTS UNDERSTANDING AND AGREES WITH THE PLAN. I, KIMBERLEE WHITTEN, DOCUMENTED THE ABOVE INFORMATION ACTING A SCRIBE FOR DR. KENNEY. I HAVE REVIEWED THE ABOVE DOCUMENT, WRITTEN BY KIMBERLEE SULLIVAN AND I VERIFY THAT IT IS ACCURATE. . OTHERS NOTES: DUE TO VIRTUAL VISIT-UNABLE TO DO VS. DISPOSITION & COMMUNICATION FOLLOW UP 2 WEEKS (REASON: ORDERING LS X-RAY; F/UP WITH DR Leigh IN 2 WEEKS) ELECTRONICALLY SIGNED BY POOJA KENNEY MD, MD ON 02/23/2020 AT 09:27 AM EDT DISCLAIMER : THIS IS A VISIT SUMMARY EXTRACTED FROM THE [facility] CHART. IT IS NOT A COPY OF THE [employer] PROGRESS NOTE. MTDD
== END ==
LOC: M TMPAIN 14:30 → M PAIN 14:30
PROVIDERS: ATTEND Anesthesiology
DX: M48.062 Spinal stenosis, lumbar region with neurogenic claudication (principal); M43.16 Spondylolisthesis, lumbar region; F17.210 Nicotine dependence, cigarettes, uncomplicated; I10 Essential (primary) hypertension; Z79.891 Long term (current) use of opiate analgesic; Z79.899 Other long term (current) drug therapy; Z88.8 Allergy status to other drugs, medicaments and biological substances; Z88.5 Allergy status to narcotic agent

== ENCOUNTER → 2020-02-28 | Outpatient (CLI) | payer MEDICARE ==
--- NOTE | 2020-03-01 00:20 | ECWPNPC ---
PATIENT NAME: FRED MICHELLE : 1950 GENDER: FEMALE VISIT DATE: 02/28/2020 DISCHARGE DATE: 02/28/20 1044 VISIT LOCKED DATE TIME: PHYSICIAN: EMILIA FARAH RESOURCE: EMILIA FARAH REASON FOR APPOINTMENT 1. X-RAY FOLLOW UP PAT DONE HISTORY OF PRESENT ILLNESS GENERAL: -PERMISSION REQUESTED AND RECEIVED FROM PATIENT TO PERFORM TELEHEALTH VISIT. 69 YEAR OLD FEMALE IN FOR CHRONIC PAIN FOLLOW UP. AT LAST VISIT WITH DR. KENNEY PATIENT WAS INFORMED SHE MAY NEED AN XRAY PRIOR TO THE MILD PROCEDURE. HOWEVER, IT WAS DISCOVERED THAT PATIENT HAD ONE PERFORMED IN OCTOBER AND MAY NOT NEED ANOTHER. SHE RATES HER PAIN AT A 6/10 CURRENTLY AND DESCRIBES IT THROBBING, SHOOTING, AND STABBING. SHE WAS STARTED ON DICLOFENAC RELATED TO INCREASED PAIN AND ADMITS IT HAS BEEN HELPFUL BUT IT HAS CAUSED GI UPSET. PAIN SCREENING: PATIENT HAS A COMPLAINT OF ACUTE OR CHRONIC PAIN :YES LOCATION OF PAIN:LOW BACK, LEFT HIP, RIGHT HIP INTENSITY OF PAIN (SCALE OF 1 TO 10):6 WHAT DOES YOUR PAIN FEEL LIKE:CONTINOUS, SHARP, STABBING DURATION:CONTINOUS, CONSTANT, ALL DAY PAIN IS INCREASED BY:ACTIVITIES, PROLONGED STANDING PAIN IS DECREASED BY:USE OF PAIN MEDICATIONS ICE PACK FALL RISK SCREENING: SCREENING :NO FALLS REPORTED IN THE LAST YEAR DEPRESSION SCREENING: PHQ-2 (2015 EDITION) LITTLE INTEREST OR PLEASURE IN DOING THINGS?NOT AT ALL FEELING DOWN, DEPRESSED, OR HOPELESS?NOT AT ALL TOTAL SCORE0 PAIN CENTER INTAKE QUESTIONS: DO YOU HAVE A HISTORY OF MRSA? :NO DO YOU TAKE A BLOOD THINNERS? :NO DO YOU HAVE ANY BLEEDING DISORDERS? :NO ANY NEW NUMBNESS OR WEAKNESS IN YOUR LEGS OR ARMS? :NO ANY PACEMAKER,DEFIBRILLATOR, OR DORSAL COLUMN STIMULATOR? :NO DO YOU HAVE ANY RASHES OR OPEN SORES? :NO ARE YOU ALLERGIC TO IV DYE? :NO ARE YOU DIABETIC? :NO ANY NEW PROBLEMS WITH YOUR MEDICATIONS? :NO HAVE YOU RECEIVED A VACCINE IN THE PAST 30 DAYS? :NO DO YOU PLAN TO RECEIVE A VACCINE IN THE NEXT 21 DAYS? :NO DO YOU NEED ANY PRESCRIPTION? :YES TRAMADOL DO YOU TAKE ANY IMMUNOSUPPRESSIVE MEDICATIONS? :NO NURSING NOTE: -. CURRENT MEDICATIONS TAKING MULTI FOR HER - TABLET 1 TAB ORALLY DAILY TAKING VITAMIN D3 1000 UNIT CAPSULE 1 CAPSULE ORALLY BID TAKING CALCIUM + D3 600-200 MG-UNIT TABLET 1 TAB ORALLY BID TAKING ZETIA 10MG TABLET TAKE 1 TABLET DAILY TAKING LEVOTHYROXINE SODIUM 25 MCG TABLET 1 TABLET ON AN EMPTY STOMACH IN THE MORNING ORALLY ONCE A DAY TAKING VENLAFAXINE HCL 100 MG TABLET 1.5 TABLET WITH FOOD ORALLY BID TAKING CARVEDILOL 12.5 MG TABLET 1 TAB ORALLY TWICE A DAY TAKING TYLENOL EXTRA STRENGTH 500 MG TABLET 1 TABLET NEEDED ORALLY EVERY 6 HRS TAKING LISINOPRIL 40 MG TABLET 1 TABLET ORALLY ONCE A DAY TAKING AMLODIPINE BESYLATE 5 MG TABLET 1 TABLET ORALLY ONCE A DAY TAKING CLONAZEPAM 1 MG TABLET CODE A: 1 TAB ORALLY BID TAKING CLOBETASOL PROPIONATE 0.05 % CREAM 1 APPLICATION EXTERNALLY TWICE A DAY TO AFFECTED AREAS ON ELBOWS AND LEGS TAKING TRAMADOL HCL 50 MG TABLET 2 TABS AM 2 TABS PM ORALLY EVERY 6 HRS PRN PAIN MDD=6 TAKING DICLOFENAC SODIUM 50 MG TABLET DELAYED RELEASE 1 TABLET ORALLY TWICE A DAY TAKING SYMBICORT 80-4.5 MCG/ACT AEROSOL 2 PUFFS INHALATION TWICE A DAY NEEDED FOR WHEEZING AND COUGHING NOT-TAKING CLOTRIMAZOLE 1 % CREAM 1 APPLICATION EXTERNALLY TWICE A DAY TO GROIN AREA NOT-TAKING BELBUCA 75 MCG FILM 1 FILM TO THE GUM BUCALLY FOR PAIN ONCE A DAY NOT-TAKING HYDROCODONE-ACETAMINOPHEN 5-325 MG TABLET 1 TABLET NEEDED ORALLY FOR PAIN DAILY MDD1 NOT-TAKING MACROBID 100 MG CAPSULE 1 CAPSULE AT BEDTIME WITH FOOD ORALLY BID NOT-TAKING FOSFOMYCIN TROMETHAMINE 3 GM PACKET 1 PACKET MIXED IN 3 TO 4 OUNCES OF WATER ORALLY ONCE NOT-TAKING LEVOFLOXACIN 250 MG TABLET 1 TABLET ORALLY ONCE A DAY, NOTES: CANCEL FOSFOMYCIN (BECAUSE OF COST) MEDICATION LIST REVIEWED AND RECONCILED WITH THE PATIENT PAST MEDICAL HISTORY HTN (ETT 06/11 NEG), HAS SEEN CARDIOLOGY ANXIETY DEPRESSION HYPOTHYROID WITH 2 SMALL CYSTS HX OF C.DIFF TOBACCO ABUSE ETOH ABUSE IN REMISSION OSTEOPOROSIS ON 2018 DEXA, EVAL'D BY DR. RIOS ENDOCRINOLOGY RECOMMENDED BISPHOSPHANATES THYROID NODULES X 2, SUBCENTIMETER NO HISTORY OF BIOPSY HYPERLIPIDEMIA OSTEOARTHRITIS ALLERGIES STATINS (FOR ALLERGY USE ONLY): ACHY, PAINFUL MUSCLES - ALLERGY MAGNESIUM: DIARRHEA - ALLERGY TRAZODONE HCL: MUSCLE ACHES - ALLERGY CYMBALTA: SEVERE STOMACH ACHE - SIDE EFFECTS PROZAC: NAUSEA/VOMITING - ALLERGY AUGMENTIN: DIARRHEA - SIDE EFFECTS GABAPENTIN: SEVERE STOMACH ACHE - SIDE EFFECTS HYDROCODONE-ACETAMINOPHEN: SEVERE DIARRHEA, VOMITING - SIDE EFFECTS SURGICAL HISTORY TONSILLECTOMY TUBAL LIGATION HYSTERECTOMY COLONOSCOPY/ENDOSCOPY TURBT 05/18/17 CYSTOSCOPY FAMILY HISTORY FATHER: , DIAGNOSED WITH OTHER MALIGNANT NEOPLASM OF UNSPECIFIED SITE MOTHER: , UNSPECIFIED HEART DISEASE, OTHER SPECIFIED CONDITIONS INFLUENCING HEALTH STATUS PATERNAL GRAND FATHER: , OTHER MALIGNANT NEOPLASM OF UNSPECIFIED SITE PATERNAL GRAND MOTHER: , OTHER MALIGNANT NEOPLASM OF UNSPECIFIED SITE MATERNAL GRAND FATHER: , UNSPECIFIED HEART DISEASE MATERNAL GRAND MOTHER: , OTHER MALIGNANT NEOPLASM OF UNSPECIFIED SITE 1 BROTHER(S) , 1 SISTER(S) . 1 SON(S) , 1 DAUGHTER(S) - HEALTHY. FATHER: SPINE CAMOTHER: ALZHEIMERSPATERNAL GF: BRAIN AND LUNG CA PATERNAL GM: COLON CA MATERNAL GM: CA UNKNOWNSISTER: ARTHRITIS; BACK SURGERY [id number]: ()BRAIN AND LUNG CA. SOCIAL HISTORY GENERAL: TOBACCO USE ARE YOU A:CURRENT SMOKER ARE YOU INTERESTED IN QUITTING?NOT READY TO QUIT COUNSELED THE PATIENT ON SMOKING EFFECTS, EDUCATION [id number]/02/2020 HOW MANY CIGARETTES A DAY DO YOU SMOKE?6-10 HOW SOON AFTER YOU WAKE UP DO YOU SMOKE YOUR FIRST CIGARETTE?31-60 MIN HOW OFTEN DO YOU SMOKE CIGARETTES?SOME DAYS, BUT NOT EVERY DAY PATIENT COUNSELED ON THE DANGERS OF TOBACCO USE AND URGED TO QUIT:02/27/2020 SMOKING CESSATION INFORMATION GIVEN02/27/2020 LATEX QUESTIONNAIRE LATEX ALLERGY : HAVE YOU EVER DEVELOPED ANY TYPE OF REACTION AFTER HANDLING LATEX PRODUCTS SUCH RUBBER GLOVES, CONDOMS, DIAPHRAGMS, BALLOONS, SOCKS, OR UNDERWEAR?NO LATEX ALLERGY : HAVE YOU EVER DEVELOPED ANY TYPE OF REACTION DURING OR AFTER DENTAL APPOINTMENT, VAGINAL/RECTAL EXAMINATION, SURGICAL PROCEDURE, OR ANY OTHER EXPOSURE?NO DATE ASKED : 02/20/2020 LATEX RISK : HAVE YOU EVER HAD ANY DIFFICULTY BREATHING OR HIVES AFTER EATING OR HANDLING ANY FRUITS, OR VEGETABLES; SUCH KIWI, BANANAS, STONE FRUITS, OR CHESTNUTSNO LATEX RISK : DO YOU HAVE A PREVIOUS PERSONAL HISTORY OF MORE THAN NINE SURGERIES, SPINA BIFIDA, OR REPEATED CATHERIZATIONS? NO LATEX RISK : ARE YOU FREQUENTLY EXPOSED TO LATEX PRODUCTS IN YOUR OCCUPATION?NO ALCOHOL SCREENING DID YOU HAVE A DRINK CONTAINING ALCOHOL IN THE PAST YEAR?NO POINTS0 INTERPRETATIONNEGATIVE RECREATIONAL DRUG USE DRUG USE?NO CAFFEINE CAFFEINE USE?NO SEXUAL HX HAD SEX IN THE LAST 12 MONTHS (VAGINAL, ORAL, OR ANAL)?NO HAVE YOU EVER HAD AN STD?NO HIV / HEP-C SCREENING HIV TEST OFFERED TO PATIENT:YES DATE OFFERED:09/12/2018 TEST ACCEPTED:NO HEP-C TEST OFFERED TO PATIENT:YES DATE OFFERED:09/12/2018 REASON:PATIENT DECLINED TEST ACCEPTED:NO REASON:PATIENT DECLINED BROCHURE PROVIDED TO PATIENTYES SHINTO [id number] ZOROASTRIANISM LANGUAGE LANGUAGES SPOKEN:KAZAKH EDUCATION LEVEL OF EDUCATION:NOT FINISHED COLLEGE LEARNING BARRIERS / SPECIAL NEEDS CHANGE FROM LAST VISIT?NO BARRIERS TO LEARNING?NO HEARING IMPAIRED?NO VISION IMPAIRED?YES COGNITIVELY IMPAIRED?NO :CORRECTIVE LENSES READINESS TO LEARN?YES LEARNING PREFERENCES?NO LEARNING CAPABILITIES PRESENT?YES EMOTIONAL BARRIERS?NO SPECIAL DEVICES?YES :CANE MEMS ENGINEER NEEDED?NO DOMESTIC VIOLENCE DO YOU FEEL SAFE IN YOUR ENVIRONMENT?YES OCCUPATION: RETIRED. DIET: REGULAR. EXERCISE: WALKS, SWIMS. MARITAL STATUS: . OTHERS AT HOME: NONE. NEW PATIENT PAIN DIARY TODAY'S VISIT 02/20/20 PATIENT DESCRIBES PAIN :BURNING, HAVE IT ALL THE TIME, SHARP, STABBING, TENDER, SORE FROM 0-10, WHAT LEVEL IS YOUR PAIN TODAY?9 PRECIPITATING FACTORS ACTIVITY ALLEVIATING FACTORS REST IMPACT ON FUNCTION LIMITS HER ON WHAT SHE IS ABLE TO DO. SHE STILL DOES THINGS BUT SHE HAS TO DO IT IN STEPS PAIN CLINIC PFS, CLERGY, PUBLIC HEALTH REFERRALS PFS REFERRAL NEEDED?NO CLERGY REFERRAL NEEDED?NO PUBLIC HEALTH REFERRAL NEEDED?NO HAS THE PATIENT BEEN EDUCATED REGARDING HIS/HER PLAN OF CARE?YES HAS THE PATIENT BEEN EDUCATED REGARDING PAIN, THE RISK FOR PAIN, THE IMPORTANCE OF EFFECTIVE PAIN MANAGEMENT, AND THE PAIN ASSESSMENT PROCESS?YES ADVANCE DIRECTIVE ADVANCE DIRECTIVE DISCUSSED WITH PATIENT:YES HCP IS DAUGHTER ROSY FOSTER [phone], COPY SCANNED IN DOCUMENTS HOSPITALIZATION/MAJOR DIAGNOSTIC PROCEDURE SEE SURGERIES FRACTURED PELVIS CHILDBIRTH REVIEW OF SYSTEMS CONSTITUTIONAL: ANY RECENT FEVER OR ILLNESS NO . CHILLS NO . GASTROENTEROLOGY: BOWEL INCONTINENCE NO . ANY NEW CHANGE IN BOWEL CONTROL? NO . ABDOMINAL PAIN NO . CONSTIPATION NO . GENITOURINARY: ANY NEW CHANGE IN BLADDER CONTROL? NO . URINARY INCONTINENCE NO . CARDIOLOGY: CHEST PRESSURE NO . CHEST PAIN NO . RESPIRATORY: COUGH NO . SHORTNESS OF BREATH NO . EXAMINATION GENERAL EXAMINATION: GENERALNO ACUTE DISTRESS, WELL NOURISHED AND HYDRATED. PSYCHAPPROPRIATE MOOD AND AFFECT , ORIENTED X 3. ASSESSMENTS INTERVERTEBRAL DISC DISORDER WITH RADICULOPATHY OF LUMBOSACRAL REGION - M51.17 (PRIMARY) TREATMENT INTERVERTEBRAL DISC DISORDER WITH RADICULOPATHY OF LUMBOSACRAL REGION CLINICAL NOTES: 69 YEAR OLD FEMALE IN FOR CHRONIC PAIN FOLLOW UP. GIVEN PRESENTING SYMPTOMS RECOMMEND STOPPING DICLOFENAC AND STARTING CELEBREX. SHE HAS AN UPCOMING APPT WITH DR. KENNEY NEXT WEEK. THIS ACLS NURSE WILL CLARIFY IF PATIENT NEEDS AN X-RAY AND RELAY INFORMATION TO PATIENT. PATIENT HAS EXPRESSED UNDERSTANDING OF AND WAS IN AGREEMENT WITH TX PLAN. GIVEN TIME TO ASK QUESTIONS AND EXPRESS CONCERNS. , ISTOP REGISTRY REVIEWED AND DEMONSTRATES COMPLLIANCE. (REF # [id number] ) BRINGS IN MEDICATIONS WHICH IS APPROPRIATE FOR WHAT WAS DISPENSED. RECENT URINE TOXICOLOGY REVIEWED. NO UNAUTHORIZED MEDICATIONS. NO ILLICIT SUBSTANCES AND PRESCRIBED MEDICATIONS WERE PRESENT. OTHERS STOP DICLOFENAC SODIUM TABLET DELAYED RELEASE, 50 MG, 1 TABLET, ORALLY, TWICE A DAY START CELEBREX CAPSULE, 100 MG, 1 CAPSULE WITH FOOD, ORALLY, ONCE A DAY, 30 DAY(S), 30 NOTES: VITAL NOT OBTAINED DUE TO VIRTUAL VISIT, PRE SCREENING COMPLETED, 02/27/20, NA . DISPOSITION & COMMUNICATION FOLLOW UP 2 MONTHS (REASON: BACK PAIN) ELECTRONICALLY SIGNED BY YULISA GARIBAY ON 02/29/2020 AT 08:44 AM EDT DISCLAIMER : THIS IS A VISIT SUMMARY EXTRACTED FROM THE [facility] CHART. IT IS NOT A COPY OF THE [facility] PROGRESS NOTE. TRACEY
== END ==
LOC: M PAIN 10:15 → M TMPAIN 10:15
PROVIDERS: ATTEND Family Medicine
DX: M51.17 Intervertebral disc disorders with radiculopathy, lumbosacral region (principal)

== ENCOUNTER → 2020-03-05 | Outpatient (CLI) | payer MEDICARE ==
--- NOTE | 2020-03-07 00:52 | ECWPNPC ---
PATIENT NAME: FRED MICHELLE : 1950 GENDER: FEMALE VISIT DATE: 03/05/2020 DISCHARGE DATE: 03/05/20 1553 VISIT LOCKED DATE TIME: PHYSICIAN: POOJA KENNEY MD RESOURCE: POOJA KENNEY MD REASON FOR APPOINTMENT 1. HIPS HISTORY OF PRESENT ILLNESS GENERAL: 69 YEAR OLD FEMALE PATIENT WITH A HISTORY OF CHRONIC LOW BACK AND LEG PAIN. THE PATIENT DESCRIBES HER PAIN BURNING, CONTINUOUS, TENDER WITH A PAIN SCORE OF 7-10/10 DEPENDING ON PHYSICAL ACTIVITY. THE PATIENT STATES HER PAIN STARTS IN HER LOW BACK AND RADIATES DOWN BOTH LEGS, BUT MAINLY IN HER RIGHT LEG. THE PATIENT SAYS HER PAIN INCREASES VERY HIGH AFTER STANDING FOR 6 MINUTES, AND HER PAIN SIGNIFICANTLY REDUCES AFTER SITTING TO REST. THE PATIENT SAYS SHE CAN WALK FOR ONE TO TWO MINUTES BEFORE NEEDING TO STOP, WHICH REDUCES HER PAIN BUT IT STILL REMAINS. THE PATIENT REPORTS HAVING WEAKNESS IN BOTH LEGS AND SHE NEEDS TO USE A CANE FOR STABILITY WHILE WALKING. THE PATIENT DENIES UNEXPLAINED WEIGHT LOSS, FEVER, CHILLS, NEW CHANGES IN HER URINARY OR BOWEL CONTROL. FALL RISK SCREENING: SCREENING :NO FALLS REPORTED IN THE LAST YEAR PAIN SCREENING: PATIENT HAS A COMPLAINT OF ACUTE OR CHRONIC PAIN :YES LOCATION OF PAIN:LEFT HIP, RIGHT HIP INTENSITY OF PAIN (SCALE OF 1 TO 10):10 WHAT DOES YOUR PAIN FEEL LIKE:BURNING, CONTINOUS, TENDER DURATION:CONTINOUS PAIN IS INCREASED BY:ACTIVITIES, PROLONGED STANDING PAIN IS DECREASED BY:USE OF PAIN MEDICATIONS, OTHERS RESTING NURSING NOTE: -. PAIN CENTER INTAKE QUESTIONS: DO YOU HAVE A HISTORY OF MRSA? :NO DO YOU TAKE A BLOOD THINNERS? :NO DO YOU HAVE ANY BLEEDING DISORDERS? :NO ANY NEW NUMBNESS OR WEAKNESS IN YOUR LEGS OR ARMS? :NO ANY PACEMAKER,DEFIBRILLATOR, OR DORSAL COLUMN STIMULATOR? :NO DO YOU HAVE ANY RASHES OR OPEN SORES? :YES PSORIASIS ELBOWS AND KNEES ARE YOU ALLERGIC TO IV DYE? :NO ARE YOU DIABETIC? :NO ANY NEW PROBLEMS WITH YOUR MEDICATIONS? :YES CELEBREX WEARS OFF AFTER 12 HOURS HAVE YOU RECEIVED A VACCINE IN THE PAST 30 DAYS? :NO DO YOU PLAN TO RECEIVE A VACCINE IN THE NEXT 21 DAYS? :NO DO YOU NEED ANY PRESCRIPTION? :YES TRAMADOL DO YOU TAKE ANY IMMUNOSUPPRESSIVE MEDICATIONS? :NO IS THERE A CHANCE YOU COULD BE ? :NO ARE YOU BREAST FEEDING? :NO CURRENT MEDICATIONS TAKING MULTI FOR HER - TABLET 1 TAB ORALLY DAILY TAKING VITAMIN D3 1000 UNIT CAPSULE 1 CAPSULE ORALLY BID TAKING CALCIUM + D3 600-200 MG-UNIT TABLET 1 TAB ORALLY BID TAKING ZETIA 10MG TABLET TAKE 1 TABLET DAILY TAKING LEVOTHYROXINE SODIUM 25 MCG TABLET 1 TABLET ON AN EMPTY STOMACH IN THE MORNING ORALLY ONCE A DAY TAKING VENLAFAXINE HCL 100 MG TABLET 1.5 TABLET WITH FOOD ORALLY BID TAKING CARVEDILOL 12.5 MG TABLET 1 TAB ORALLY TWICE A DAY TAKING TYLENOL EXTRA STRENGTH 500 MG TABLET 1 TABLET NEEDED ORALLY EVERY 6 HRS TAKING LISINOPRIL 40 MG TABLET 1 TABLET ORALLY ONCE A DAY TAKING AMLODIPINE BESYLATE 5 MG TABLET 1 TABLET ORALLY ONCE A DAY TAKING CLONAZEPAM 1 MG TABLET CODE A: 1 TAB ORALLY BID TAKING CLOBETASOL PROPIONATE 0.05 % CREAM 1 APPLICATION EXTERNALLY TWICE A DAY TO AFFECTED AREAS ON ELBOWS AND LEGS TAKING TRAMADOL HCL 50 MG TABLET 2 TABS AM 2 TABS PM ORALLY EVERY 6 HRS PRN PAIN MDD=6 TAKING SYMBICORT 80-4.5 MCG/ACT AEROSOL 2 PUFFS INHALATION TWICE A DAY NEEDED FOR WHEEZING AND COUGHING TAKING CELEBREX 100 MG CAPSULE 1 CAPSULE WITH FOOD ORALLY ONCE A DAY TAKING FLONASE ALLERGY RELIEF 50 MCG/ACT SUSPENSION 1 SPRAY IN EACH NOSTRIL NASALLY BID NOT-TAKING CLOTRIMAZOLE 1 % CREAM 1 APPLICATION EXTERNALLY TWICE A DAY TO GROIN AREA NOT-TAKING BELBUCA 75 MCG FILM 1 FILM TO THE GUM BUCALLY FOR PAIN ONCE A DAY NOT-TAKING HYDROCODONE-ACETAMINOPHEN 5-325 MG TABLET 1 TABLET NEEDED ORALLY FOR PAIN DAILY MDD1 NOT-TAKING MACROBID 100 MG CAPSULE 1 CAPSULE AT BEDTIME WITH FOOD ORALLY BID NOT-TAKING FOSFOMYCIN TROMETHAMINE 3 GM PACKET 1 PACKET MIXED IN 3 TO 4 OUNCES OF WATER ORALLY ONCE NOT-TAKING LEVOFLOXACIN 250 MG TABLET 1 TABLET ORALLY ONCE A DAY, NOTES: CANCEL FOSFOMYCIN (BECAUSE OF COST) MEDICATION LIST REVIEWED AND RECONCILED WITH THE PATIENT PAST MEDICAL HISTORY HTN (ETT 06/11 NEG), HAS SEEN CARDIOLOGY ANXIETY DEPRESSION HYPOTHYROID WITH 2 SMALL CYSTS HX OF C.DIFF TOBACCO ABUSE ETOH ABUSE IN REMISSION OSTEOPOROSIS ON 2018 DEXA, EVAL'D BY DR. RIOS ENDOCRINOLOGY RECOMMENDED BISPHOSPHANATES THYROID NODULES X 2, SUBCENTIMETER NO HISTORY OF BIOPSY HYPERLIPIDEMIA OSTEOARTHRITIS ALLERGIES STATINS (FOR ALLERGY USE ONLY): ACHY, PAINFUL MUSCLES - ALLERGY MAGNESIUM: DIARRHEA - ALLERGY TRAZODONE HCL: MUSCLE ACHES - ALLERGY CYMBALTA: SEVERE STOMACH ACHE - SIDE EFFECTS PROZAC: NAUSEA/VOMITING - ALLERGY AUGMENTIN: DIARRHEA - SIDE EFFECTS GABAPENTIN: SEVERE STOMACH ACHE - SIDE EFFECTS HYDROCODONE-ACETAMINOPHEN: SEVERE DIARRHEA, VOMITING - SIDE EFFECTS SURGICAL HISTORY TONSILLECTOMY TUBAL LIGATION HYSTERECTOMY COLONOSCOPY/ENDOSCOPY TURBT 05/18/17 CYSTOSCOPY 01/2019 FAMILY HISTORY FATHER: , DIAGNOSED WITH OTHER MALIGNANT NEOPLASM OF UNSPECIFIED SITE MOTHER: , UNSPECIFIED HEART DISEASE, OTHER SPECIFIED CONDITIONS INFLUENCING HEALTH STATUS PATERNAL GRAND FATHER: , OTHER MALIGNANT NEOPLASM OF UNSPECIFIED SITE PATERNAL GRAND MOTHER: , OTHER MALIGNANT NEOPLASM OF UNSPECIFIED SITE MATERNAL GRAND FATHER: , UNSPECIFIED HEART DISEASE MATERNAL GRAND MOTHER: , OTHER MALIGNANT NEOPLASM OF UNSPECIFIED SITE 1 BROTHER(S) , 1 SISTER(S) . 1 SON(S) , 1 DAUGHTER(S) - HEALTHY. FATHER: SPINE CAMOTHER: ALZHEIMERSPATERNAL GF: BRAIN AND LUNG CA PATERNAL GM: COLON CA MATERNAL GM: CA UNKNOWNSISTER: ARTHRITIS; BACK SURGERY [id number]: ()BRAIN AND LUNG CA. SOCIAL HISTORY GENERAL: TOBACCO USE ARE YOU A:CURRENT SMOKER HOW OFTEN DO YOU SMOKE CIGARETTES?SOME DAYS, BUT NOT EVERY DAY HOW SOON AFTER YOU WAKE UP DO YOU SMOKE YOUR FIRST CIGARETTE?31-60 MIN HOW MANY CIGARETTES A DAY DO YOU SMOKE?6-10 ARE YOU INTERESTED IN QUITTING?NOT READY TO QUIT PATIENT COUNSELED ON THE DANGERS OF TOBACCO USE AND URGED TO QUIT:02/27/2020 COUNSELED THE PATIENT ON SMOKING EFFECTS, EDUCATION [id number]/02/2020 SMOKING CESSATION INFORMATION GIVEN02/27/2020 LATEX QUESTIONNAIRE LATEX ALLERGY : HAVE YOU EVER DEVELOPED ANY TYPE OF REACTION AFTER HANDLING LATEX PRODUCTS SUCH RUBBER GLOVES, CONDOMS, DIAPHRAGMS, BALLOONS, SOCKS, OR UNDERWEAR?NO LATEX ALLERGY : HAVE YOU EVER DEVELOPED ANY TYPE OF REACTION DURING OR AFTER DENTAL APPOINTMENT, VAGINAL/RECTAL EXAMINATION, SURGICAL PROCEDURE, OR ANY OTHER EXPOSURE?NO DATE ASKED : 02/20/2020 LATEX RISK : HAVE YOU EVER HAD ANY DIFFICULTY BREATHING OR HIVES AFTER EATING OR HANDLING ANY FRUITS, OR VEGETABLES; SUCH KIWI, BANANAS, STONE FRUITS, OR CHESTNUTSNO LATEX RISK : DO YOU HAVE A PREVIOUS PERSONAL HISTORY OF MORE THAN NINE SURGERIES, SPINA BIFIDA, OR REPEATED CATHERIZATIONS? NO LATEX RISK : ARE YOU FREQUENTLY EXPOSED TO LATEX PRODUCTS IN YOUR OCCUPATION?NO ALCOHOL SCREENING DID YOU HAVE A DRINK CONTAINING ALCOHOL IN THE PAST YEAR?NO POINTS0 INTERPRETATIONNEGATIVE RECREATIONAL DRUG USE DRUG USE?NO DENIES 03/05/20 CAFFEINE CAFFEINE USE?NO SEXUAL HX HAD SEX IN THE LAST 12 MONTHS (VAGINAL, ORAL, OR ANAL)?NO HAVE YOU EVER HAD AN STD?NO HIV / HEP-C SCREENING HIV TEST OFFERED TO PATIENT:YES DATE OFFERED:09/12/2018 TEST ACCEPTED:NO HEP-C TEST OFFERED TO PATIENT:YES DATE OFFERED:09/12/2018 REASON:PATIENT DECLINED TEST ACCEPTED:NO REASON:PATIENT DECLINED BROCHURE PROVIDED TO PATIENTYES SHINTO [id number] CAODAISM LANGUAGE LANGUAGES SPOKEN:SURINAMESE EDUCATION LEVEL OF EDUCATION:NOT FINISHED COLLEGE LEARNING BARRIERS / SPECIAL NEEDS CHANGE FROM LAST VISIT?NO BARRIERS TO LEARNING?NO HEARING IMPAIRED?NO VISION IMPAIRED?YES COGNITIVELY IMPAIRED?NO :CORRECTIVE LENSES READINESS TO LEARN?YES LEARNING PREFERENCES?NO LEARNING CAPABILITIES PRESENT?YES EMOTIONAL BARRIERS?NO SPECIAL DEVICES?YES :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 DIET: REGULAR. EXERCISE: WALKS, SWIMS. MARITAL STATUS: . OTHERS AT HOME: NONE. NEW PATIENT PAIN DIARY PATIENT DESCRIBES PAIN :BURNING, HAVE IT ALL THE TIME, SHARP, STABBING, TENDER, SORE FROM 0-10, WHAT LEVEL IS YOUR PAIN TODAY?10 PRECIPITATING FACTORS ACTIVITY ALLEVIATING FACTORS REST IMPACT ON FUNCTION LIMITS HER ON WHAT SHE IS ABLE TO DO. SHE STILL DOES THINGS BUT SHE HAS TO DO IT IN STEPS PAIN CLINIC PFS, CLERGY, PUBLIC HEALTH REFERRALS PFS REFERRAL NEEDED?NO CLERGY REFERRAL NEEDED?NO PUBLIC HEALTH REFERRAL NEEDED?NO HAS THE PATIENT BEEN EDUCATED REGARDING HIS/HER PLAN OF CARE?YES HAS THE PATIENT BEEN EDUCATED REGARDING PAIN, THE RISK FOR PAIN, THE IMPORTANCE OF EFFECTIVE PAIN MANAGEMENT, AND THE PAIN ASSESSMENT PROCESS?YES ADVANCE DIRECTIVE ADVANCE DIRECTIVE DISCUSSED WITH PATIENT:YES HCP IS DAUGHTER ROSY FOSTER [phone], COPY SCANNED IN DOCUMENTS HOSPITALIZATION/MAJOR DIAGNOSTIC PROCEDURE SEE SURGERIES FRACTURED PELVIS CHILDBIRTH REVIEW OF SYSTEMS CONSTITUTIONAL: ANY RECENT FEVER OR ILLNESS NO . CHILLS NO . GASTROENTEROLOGY: BOWEL INCONTINENCE NO . ANY NEW CHANGE IN BOWEL CONTROL? NO . ABDOMINAL PAIN NO . CONSTIPATION NO . GENITOURINARY: ANY NEW CHANGE IN BLADDER CONTROL? NO . IS THERE A CHANCE YOU COULD BE ? NO . URINARY INCONTINENCE NO . CARDIOLOGY: CHEST PRESSURE NO . CHEST PAIN NO . RESPIRATORY: COUGH NO . SHORTNESS OF BREATH NO . VITAL SIGNS WT 166.6 LBS, HT 62.5 IN, BMI 29.98 INDEX, BP 145/77 MM HG, HR 107 /MIN, RR 18 /MIN, TEMP 96.3 F, OXYGEN SAT % 92%, NA INITIALS AW 1410, REVIEWED BY: LS. EXAMINATION GENERAL: PATIENT IS ALERT O X 3 AND COOPERATIVE. PATIENT USES A CANE TO AMBULATE, WHICH SHE HOLDS HIGH IN HER RIGHT HAND. PATIENT IS LIMPING FROM MAINLY HER RIGHT LEG. TENDERNESS IN LOW BACK AND DOWN BOTH LEGS. RIGHT LEG IS WEAKER AT EXTENSION AND FLEXION. PATIENT IS SITTING. MODIFIED STRAIGHT LEG RAISE OF THE RIGHT LEG IS POSITIVE AT 65 DEGREES FOR RADICULOPATHY. MRI OF THE LUMBAR SPINE DONE ON 01/16/2020 SHOWS STENOSIS MAINLY AT L4-L5 AND L5-S1 AND RETROLISTHESIS FROM L4 TO L5. X-RAY OF THE LUMBOSACRAL SPINE DONE ON 11/01/2019 SHOWS RETROLISTHESIS AND SPINE STABILITY. ASSESSMENTS SPINAL STENOSIS OF LUMBAR REGION WITH NEUROGENIC CLAUDICATION - M48.062 (PRIMARY) TREATMENT SPINAL STENOSIS OF LUMBAR REGION WITH NEUROGENIC CLAUDICATION CONTINUE CELEBREX CAPSULE, 100 MG, 1 CAPSULE WITH FOOD, ORALLY, TWICE A DAY MDD2, 30 DAYS, 60, REFILLS 1 CONTINUE TRAMADOL HCL TABLET, 50 MG, 2 TABS AM 2 TABS PM, ORALLY, EVERY 6 HRS PRN PAIN MDD=6, 30 DAYS, 160, REFILLS 0 CLINICAL NOTES: WE DISCUSSED SEVERAL ISSUES WITH MS. MICHELLE' PAIN MANAGEMENT CASE. THE PATIENT HAS TRIED LUMBAR EPIDURAL STEROID INJECTION IN THE PAST THAT PROVIDED SHORT TERM PAIN RELIEF FOR HER. THE PATIENT IS INTERESTED IN A MILD PROCEDURE, AND AFTER DISCUSSING THE PROCEDURE AND THE PLAN TO REMOVE THE LIGAMENTUM FLAVUM, WE AGREED ON MOVING FORWARD WITH A MILD PROCEDURE. I WILL REQUEST FOR AUTHORIZATION FOR THE MILD PROCEDURE AND BOOK AFTER APPROVAL. I WILL REQUEST FOR A CLEARANCE FROM THE PATIENT'S PRIMARY CARE PROVIDER BEFORE THE MILD PROCEDURE AND TO REQUEST THE PATIENT TO STOP USING CELEBREX OR ANY NSAID'S BEFORE THE PROCEDURE. THE PATIENT WILL CONTINUE WITH CELEBREX AND TRAMADOL, WHICH I REFILLED AT TODAY'S VISIT. ISTOP # [id number] WAS REVIEWED. I EXPLAINED TO THE PATIENT THE RISKS ALTERNATIVES AND BENEFITS ASSOCIATED WITH THE USE OF NSAID'S. THE PATIENT UNDERSTOOD THAT THE USE OF NSAID'S MAY BE ASSOCIATED WITH THE DEVELOPMENT OF GASTRIC IRRITATION AND ULCERS, WITH THE DEVELOPMENT OF KIDNEY PROBLEMS AND WITH THE POSSIBILITY OF DEVELOPING CARDIAC EVENTS SUCH STOKE OR CARDIAC DISEASES. THE PATIENT AGREES ON USING THE PRESCRIBED NSAID WITH FOOD. I DISCUSSED THE RISKS ASSOCIATED WITH THE USE OF OPIOIDS INCLUDING THE POSSIBLE DEVELOPMENT OF ADDICTION OR TOLERANCE AND THE PATIENT VERBALIZED UNDERSTANDING. THE PATIENT REPORTS THE USE OF THE PRESCRIBED MEDICATION IS ONLY FOR PAIN CONTROL AND THAT NO MISUSE OF THE MEDICATION WILL OCCUR. THE PATIENT DENIES THE USE OF ANY ILLEGAL SUBSTANCES INCLUDING [place]. THE PATIENT REPORTS UNDERSTANDING AND FOLLOWING THE AGREEMENTS OF THE NARCOTIC AGREEMENT SIGNED WITH OUR PRACTICE. THE PATIENT WILL FOLLOW UP WITH ME VIA TELEMEDICINE VISIT IN 3 WEEKS. INSTRUCTIONS WERE GIVEN, QUESTIONS WERE ANSWERED, PATIENT REPORTS UNDERSTANDING AND AGREES WITH THE PLAN. I, KIMBERLEE WHITTEN, DOCUMENTED THE ABOVE INFORMATION ACTING A SCRIBE FOR DR. KENNEY. I HAVE REVIEWED THE ABOVE DOCUMENT, WRITTEN BY KIMBERLEE SULLIVAN AND I VERIFY THAT IT IS ACCURATE. . PREVENTIVE MEDICINE PAIN CLINIC TEACHING: THE PATIENT HAS BEEN EDUCATED REGARDING PAIN, THE RISK FOR PAIN, THE IMPORTANCE OF EFFECTIVE PAIN MANAGEMENT, AND THE PAIN ASSESSMENT PROCESS. : REVIEWED WRITTEN AND VERBAL INSTRUCTIONS WITH PATIENT FOR NEW MEDICATIONS, PT ACKNOWLEDGED UNDERSTANDING PROCEDURE CODES FA211 ESTABILISHED PATIENT [facility] FACILITY CHARGE [id number] CURRENT MEDS W/DOSAGES DOCUMENTED [id number] PAIN ASSESS POS TOOL F/U PLAN DOC DISPOSITION & COMMUNICATION FOLLOW UP 3 WEEKS (REASON: TELEMED WITH DR Leigh IN 3 WEEKS; RQSTING AUTH FOR MILD PROCEDURE) ELECTRONICALLY SIGNED BY POOJA KENNEY MD, MD ON 03/06/2020 AT 04:38 PM EDT DISCLAIMER : THIS IS A VISIT SUMMARY EXTRACTED FROM THE [employer] CHART. IT IS NOT A COPY OF THE [employer] PROGRESS NOTE. DAMARID
== END ==
LOC: M PAIN 14:00
PROVIDERS: ATTEND Anesthesiology
DX: M48.062 Spinal stenosis, lumbar region with neurogenic claudication (principal)

== ENCOUNTER → 2020-03-26 | Outpatient (CLI) | payer MEDICARE ==
--- NOTE | 2020-04-03 02:30 | ECWPNPC ---
PATIENT NAME: FRED MICHELLE : 1950 GENDER: FEMALE VISIT DATE: 03/26/2020 DISCHARGE DATE: 03/26/20 1456 VISIT LOCKED DATE TIME: PHYSICIAN: POOJA KENNEY MD RESOURCE: POOJA KENNEY MD REASON FOR APPOINTMENT 1. TELEMED WITH DR Leigh IN 3 WEEKS; RQSTING AUTH FOR MILD PROCEDURE 2. PAT DONE HISTORY OF PRESENT ILLNESS FALL RISK SCREENING: SCREENING :NO FALLS REPORTED IN THE LAST YEAR PERMISSION FROM PATIENT WAS RECEIVED TO DO TELEPHONE OFFICE VISIT. 69-YEAR-OLD FEMALE PATIENT WITH A HISTORY OF CHRONIC LOW BACK AND LEG PAIN. THE PATIENT DESCRIBES THE PAIN STABBING, BURNING, TENDER, THROBBING SORE AND SHOOTING WITH A PAIN SCORE RANGING FROM 6-10/10 DEPENDING ON PHYSICAL ACTIVITY. THE PATIENT STATES THAT THE PAIN IS MOSTLY OVER THE BACK AND THE RIGHT LEG ALTHOUGH BOTH LEGS HURT. THE PATIENT IS CURRENTLY TAKING TRAMADOL AND OXYCODONE. THE PATIENT STATES THAT THE PAIN IS AFFECTING HER ACTIVITIES OF DAILY LIVING, SUCH GROCERY SHOPPING AND CLEANING. THE PATIENT STATES THAT THE PAIN MAKES IT DIFFICULT FOR HER TO WALK. SHE STATED THAT SHE CAN WALK FOR 6 MINUTES AND NEEDS TO SIT. SHE STATED THAT SHE GETS SOME RELIEF FROM SITTING. THE PATIENT STATED THAT AFTER STANDING FOR A MINUTES SHE NEEDS TO SIT DUE TO PAIN IN THE BACK AND DOWN THE LEGS. THE PATIENT ONLY RESPONDED TO THE EPIDURAL INJECTIONS FOR A FEW WEEKS. THE PATIENT IS SUFFERING FROM LUMBAR SPINAL STENOSIS. WE ARE PLANNING ON DOING A MILD PROCEDURE ON THE PATIENT. PATIENT DENIES UNEXPLAINABLE WEIGHT LOSS, FEVER, CHILLS, NEW CHANGES ON HER URINARY OR BOWEL CONTROL. PAIN SCREENING: PATIENT HAS A COMPLAINT OF ACUTE OR CHRONIC PAIN :YES LOCATION OF PAIN:RIGHT HIP INTENSITY OF PAIN (SCALE OF 1 TO 10):9 WHAT DOES YOUR PAIN FEEL LIKE:CONTINOUS, STABBING, TENDER, THROBBING, SORE, SHOOTING NURSING NOTE: -. PAIN CENTER INTAKE QUESTIONS: DO YOU HAVE A HISTORY OF MRSA? :NO DO YOU TAKE A BLOOD THINNERS? :NO DO YOU HAVE ANY BLEEDING DISORDERS? :NO ANY NEW NUMBNESS OR WEAKNESS IN YOUR LEGS OR ARMS? :NO ANY PACEMAKER,DEFIBRILLATOR, OR DORSAL COLUMN STIMULATOR? :NO DO YOU HAVE ANY RASHES OR OPEN SORES? 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 :NO ARE YOU DIABETIC? :NO ANY NEW PROBLEMS WITH YOUR MEDICATIONS? :NO HAVE YOU RECEIVED A VACCINE IN THE PAST 30 DAYS? :NO DO YOU PLAN TO RECEIVE A VACCINE IN THE NEXT 21 DAYS? :NO DO YOU NEED ANY PRESCRIPTION? :NO DO YOU TAKE ANY IMMUNOSUPPRESSIVE MEDICATIONS? :NO IS THERE A CHANCE YOU COULD BE ? :NO ARE YOU BREAST FEEDING? :NO CURRENT MEDICATIONS TAKING MULTI FOR HER - TABLET 1 TAB ORALLY DAILY TAKING VITAMIN D3 1000 UNIT CAPSULE 1 CAPSULE ORALLY BID TAKING CALCIUM + D3 600-200 MG-UNIT TABLET 1 TAB ORALLY BID TAKING ZETIA 10MG TABLET TAKE 1 TABLET DAILY TAKING LEVOTHYROXINE SODIUM 25 MCG TABLET 1 TABLET ON AN EMPTY STOMACH IN THE MORNING ORALLY ONCE A DAY TAKING CARVEDILOL 12.5 MG TABLET 1 TAB ORALLY TWICE A DAY TAKING TYLENOL EXTRA STRENGTH 500 MG TABLET 1 TABLET NEEDED ORALLY EVERY 6 HRS TAKING LISINOPRIL 40 MG TABLET 1 TABLET ORALLY ONCE A DAY TAKING AMLODIPINE BESYLATE 5 MG TABLET 1 TABLET ORALLY ONCE A DAY TAKING CLONAZEPAM 1 MG TABLET CODE A: 1 TAB ORALLY BID TAKING CLOBETASOL PROPIONATE 0.05 % CREAM 1 APPLICATION EXTERNALLY TWICE A DAY TO AFFECTED AREAS ON ELBOWS AND LEGS TAKING SYMBICORT 80-4.5 MCG/ACT AEROSOL 2 PUFFS INHALATION TWICE A DAY NEEDED FOR WHEEZING AND COUGHING TAKING FLONASE ALLERGY RELIEF 50 MCG/ACT SUSPENSION 1 SPRAY IN EACH NOSTRIL NASALLY BID TAKING CELEBREX 100 MG CAPSULE 1 CAPSULE WITH FOOD ORALLY TWICE A DAY MDD2 TAKING TRAMADOL HCL 50 MG TABLET 2 TABS AM 2 TABS PM ORALLY EVERY 6 HRS PRN PAIN MDD=6 TAKING PERCOCET 5-325 MG TABLET 1 TABLET NEEDED ORALLY BID NEEDED TAKING VENLAFAXINE HCL 100 MG TABLET 1.5 TABLET WITH FOOD ORALLY BID NOT-TAKING CLOTRIMAZOLE 1 % CREAM 1 APPLICATION EXTERNALLY TWICE A DAY TO GROIN AREA NOT-TAKING BELBUCA 75 MCG FILM 1 FILM TO THE GUM BUCALLY FOR PAIN ONCE A DAY NOT-TAKING HYDROCODONE-ACETAMINOPHEN 5-325 MG TABLET 1 TABLET NEEDED ORALLY FOR PAIN DAILY MDD1 NOT-TAKING MACROBID 100 MG CAPSULE 1 CAPSULE AT BEDTIME WITH FOOD ORALLY BID NOT-TAKING FOSFOMYCIN TROMETHAMINE 3 GM PACKET 1 PACKET MIXED IN 3 TO 4 OUNCES OF WATER ORALLY ONCE NOT-TAKING LEVOFLOXACIN 250 MG TABLET 1 TABLET ORALLY ONCE A DAY, NOTES: CANCEL FOSFOMYCIN (BECAUSE OF COST) MEDICATION LIST REVIEWED AND RECONCILED WITH THE PATIENT PAST MEDICAL HISTORY HTN (ETT 06/11 NEG), HAS SEEN CARDIOLOGY ANXIETY DEPRESSION HYPOTHYROID WITH 2 SMALL CYSTS HX OF C.DIFF TOBACCO ABUSE ETOH ABUSE IN REMISSION OSTEOPOROSIS ON 2018 DEXA, EVAL'D BY DR. RIOS ENDOCRINOLOGY RECOMMENDED BISPHOSPHANATES THYROID NODULES X 2, SUBCENTIMETER NO HISTORY OF BIOPSY HYPERLIPIDEMIA OSTEOARTHRITIS ALLERGIES STATINS (FOR ALLERGY USE ONLY): ACHY, PAINFUL MUSCLES - ALLERGY MAGNESIUM: DIARRHEA - ALLERGY TRAZODONE HCL: MUSCLE ACHES - ALLERGY CYMBALTA: SEVERE STOMACH ACHE - SIDE EFFECTS PROZAC: NAUSEA/VOMITING - ALLERGY AUGMENTIN: DIARRHEA - SIDE EFFECTS GABAPENTIN: SEVERE STOMACH ACHE - SIDE EFFECTS HYDROCODONE-ACETAMINOPHEN: SEVERE DIARRHEA, VOMITING - SIDE EFFECTS SURGICAL HISTORY TONSILLECTOMY TUBAL LIGATION HYSTERECTOMY COLONOSCOPY/ENDOSCOPY TURBT 05/18/17 CYSTOSCOPY 01/2019 FAMILY HISTORY FATHER: , DIAGNOSED WITH OTHER MALIGNANT NEOPLASM OF UNSPECIFIED SITE MOTHER: , UNSPECIFIED HEART DISEASE, OTHER SPECIFIED CONDITIONS INFLUENCING HEALTH STATUS PATERNAL GRAND FATHER: , OTHER MALIGNANT NEOPLASM OF UNSPECIFIED SITE PATERNAL GRAND MOTHER: , OTHER MALIGNANT NEOPLASM OF UNSPECIFIED SITE MATERNAL GRAND FATHER: , UNSPECIFIED HEART DISEASE MATERNAL GRAND MOTHER: , OTHER MALIGNANT NEOPLASM OF UNSPECIFIED SITE 1 BROTHER(S) , 1 SISTER(S) . 1 SON(S) , 1 DAUGHTER(S) - HEALTHY. FATHER: SPINE CAMOTHER: ALZHEIMERSPATERNAL GF: BRAIN AND LUNG CA PATERNAL GM: COLON CA MATERNAL GM: CA UNKNOWNSISTER: ARTHRITIS; BACK SURGERY [id number]: ()BRAIN AND LUNG CA. SOCIAL HISTORY GENERAL: TOBACCO USE ARE YOU A:CURRENT SMOKER ARE YOU INTERESTED IN QUITTING?NOT READY TO QUIT COUNSELED THE PATIENT ON SMOKING EFFECTS, EDUCATION [id number]/02/2020 HOW MANY CIGARETTES A DAY DO YOU SMOKE?6-10 HOW SOON AFTER YOU WAKE UP DO YOU SMOKE YOUR FIRST CIGARETTE?31-60 MIN HOW OFTEN DO YOU SMOKE CIGARETTES?SOME DAYS, BUT NOT EVERY DAY PATIENT COUNSELED ON THE DANGERS OF TOBACCO USE AND URGED TO QUIT:03/25/2020 SMOKING CESSATION INFORMATION GIVEN02/27/2020 LATEX QUESTIONNAIRE LATEX ALLERGY : HAVE YOU EVER DEVELOPED ANY TYPE OF REACTION AFTER HANDLING LATEX PRODUCTS SUCH RUBBER GLOVES, CONDOMS, DIAPHRAGMS, BALLOONS, SOCKS, OR UNDERWEAR?NO LATEX ALLERGY : HAVE YOU EVER DEVELOPED ANY TYPE OF REACTION DURING OR AFTER DENTAL APPOINTMENT, VAGINAL/RECTAL EXAMINATION, SURGICAL PROCEDURE, OR ANY OTHER EXPOSURE?NO LATEX RISK : HAVE YOU EVER HAD ANY DIFFICULTY BREATHING OR HIVES AFTER EATING OR HANDLING ANY FRUITS, OR VEGETABLES; SUCH KIWI, BANANAS, STONE FRUITS, OR CHESTNUTSNO LATEX RISK : DO YOU HAVE A PREVIOUS PERSONAL HISTORY OF MORE THAN NINE SURGERIES, SPINA BIFIDA, OR REPEATED CATHERIZATIONS? NO LATEX RISK : ARE YOU FREQUENTLY EXPOSED TO LATEX PRODUCTS IN YOUR OCCUPATION?NO DATE ASKED : 03/25/2020 ALCOHOL SCREENING DID YOU HAVE A DRINK CONTAINING ALCOHOL IN THE PAST YEAR?NO POINTS0 INTERPRETATIONNEGATIVE RECREATIONAL DRUG USE DRUG USE?NO DENIES 03/05/20 CAFFEINE CAFFEINE USE?NO SEXUAL HX HAD SEX IN THE LAST 12 MONTHS (VAGINAL, ORAL, OR ANAL)?NO HAVE YOU EVER HAD AN STD?NO HIV / HEP-C SCREENING HIV TEST OFFERED TO PATIENT:YES DATE OFFERED:09/12/2018 TEST ACCEPTED:NO HEP-C TEST OFFERED TO PATIENT:YES DATE OFFERED:09/12/2018 REASON:PATIENT DECLINED TEST ACCEPTED:NO REASON:PATIENT DECLINED BROCHURE PROVIDED TO PATIENTYES JUDAISM [id number] [employer] LANGUAGE LANGUAGES SPOKEN:ECUADOREAN EDUCATION LEVEL OF EDUCATION:NOT FINISHED COLLEGE LEARNING BARRIERS / SPECIAL NEEDS CHANGE FROM LAST VISIT?NO BARRIERS TO LEARNING?NO HEARING IMPAIRED?NO VISION IMPAIRED?YES COGNITIVELY IMPAIRED?NO :CORRECTIVE LENSES READINESS TO LEARN?YES LEARNING PREFERENCES?NO LEARNING CAPABILITIES PRESENT?YES EMOTIONAL BARRIERS?NO SPECIAL DEVICES?YES :CANE CHARGEBACK SPECIALIST NEEDED?NO DOMESTIC VIOLENCE DO YOU FEEL SAFE IN YOUR ENVIRONMENT?YES OCCUPATION: RETIRED. DIET: REGULAR. EXERCISE: WALKS, SWIMS. MARITAL STATUS: . OTHERS AT HOME: NONE. PAIN CLINIC PFS, CLERGY, PUBLIC HEALTH REFERRALS PFS REFERRAL NEEDED?NO CLERGY REFERRAL NEEDED?NO PUBLIC HEALTH REFERRAL NEEDED?NO HAS THE PATIENT BEEN EDUCATED REGARDING HIS/HER PLAN OF CARE?YES HAS THE PATIENT BEEN EDUCATED REGARDING PAIN, THE RISK FOR PAIN, THE IMPORTANCE OF EFFECTIVE PAIN MANAGEMENT, AND THE PAIN ASSESSMENT PROCESS?YES ADVANCE DIRECTIVE ADVANCE DIRECTIVE DISCUSSED WITH PATIENT:YES HCP IS DAUGHTER ROSY FOSTER [phone], COPY SCANNED IN DOCUMENTS HOSPITALIZATION/MAJOR DIAGNOSTIC PROCEDURE SEE SURGERIES FRACTURED PELVIS CHILDBIRTH REVIEW OF SYSTEMS CONSTITUTIONAL: ANY RECENT FEVER NO . CHILLS NO . WEIGHT CHANGE OF UNKNOWN REASONS NO . GASTROENTEROLOGY: NEW UNEXPLAINABLE CHANGES IN BOWEL CONTROL NO . CONSTIPATION YES. SOME CONSTIPATION, MAY BE CONTRIBUTED TO JUST STARTING OXYCODONE . GENITOURINARY: ANY NEW CHANGE IN BLADDER CONTROL? NO . NEUROLOGY: NEW ONSET DIZZINESS OR NEUROLOGICAL CHANGES NOT MENTIONED NO . NEW NUMBNESS OR PAIN PATTERNS NOT MENTIONED AND PERTINENT TO TODAY'S VISIT NO . CARDIOLOGY: NEW CHEST PRESSURE NO . NEW CHEST PAIN NO . RESPIRATORY: UNEXPLAINABLE COUGH NO . NEW SHORTNESS OF BREATH NO . EXAMINATION GENERAL EXAMINATION: TELEPHONE VISIT. THE PATIENT APPEARS ALERT, ORIENTED TIMES THREE AND COOPERATIVE. MRI OF THE LUMBOSACRAL SPINE SHOWS SEVERE STENOSIS AT L4-L5 WITH HYPERTROPHY OF THE LIGAMENTUM FLAVUM. ASSESSMENTS LUMBAR STENOSIS WITH NEUROGENIC CLAUDICATION - M48.062 (PRIMARY) TREATMENT LUMBAR STENOSIS WITH NEUROGENIC CLAUDICATION CLINICAL NOTES: WE DISCUSSED SEVERAL ALTERNATIVES WITH MS. MICHELLE REGARDING HER TREATMENT OPTIONS AND CARE. THE PATIENT IS A CANDIDATE FOR THE MILD PROCEDURE AT L4-L5. THE PATIENT HAS ONLY RECEIVED SHORT TERM RELIEF FROM EPIDURAL STEROID INJECTIONS. I REVIEWED THE X-RAYS IN THE LATERAL VIEW IN EXTENSION AND FLEXION, THE PATIENT HAS A STABLE SPINE. THE LIGAMENTUM FLAVUM AT L4-L5 IS 6 MM ON THE RIGHT AND 6.8 MM ON THE LEFT. THE PATIENT WANTS TO DO THE MILD PROCEDURE; HOWEVER, WE ARE HAVING ISSUES GETTING SOMEONE HERE TO ASSIST. I AM GOING TO REFER THE PATIENT TO DR. YAÑEZ IN [place] TO CONSIDER A MILD. THE PATIENT IS GOING TO CONTINUE WITH MEDICATION FOR NOW. I AM GOING TO CALL THE PATIENT LATER TO DISCUSS THE CONSTIPATION WHICH WAS NOT ADDRESSED TODAY. THE PATIENT KNOWS TO CALL THE OFFICE IF SHE HAS ANY QUESTIONS OR CONCERNS. THE PATIENT UNDERSTANDS AND IS IN AGREEMENT WITH THE TREATMENT PLAN. THE TOTAL TIME FOR THE TELEPHONE VISIT WAS 29 MINUTES. I, TONI TRIPLETT, DOCUMENTED THE ABOVE INFORMATION ACTING A SCRIBE FOR DR. KENNEY. I HAVE REVIEWED THE ABOVE DOCUMENT, WRITTEN BY TONI TRIPLETT, CHIEF OPERATOR SYNTHESIS, AND I VERIFY THAT IT IS ACCURATE. . OTHERS START NARCAN LIQUID, 4 MG/0.1ML, DIRECTED, NASALLY FOR EMERGENCY, DAILY, 1 DAYS, 1, REFILLS 0 DISPOSITION & COMMUNICATION FOLLOW UP REASON: REF. TO [place] FOR MILD ELECTRONICALLY SIGNED BY POOJA KENNEY MD, MD ON 04/02/2020 AT 06:23 PM EDT DISCLAIMER : THIS IS A VISIT SUMMARY EXTRACTED FROM THE [employer] [facility] CHART. IT IS NOT A COPY OF THE [employer] [facility] PROGRESS NOTE. TRACEY
== END ==
LOC: M PAIN 14:00
PROVIDERS: ATTEND Anesthesiology
DX: M48.062 Spinal stenosis, lumbar region with neurogenic claudication (principal)

== ENCOUNTER → 2020-06-05 | Outpatient (CLI) | payer MEDICARE ==
[~2020-06-05] MED LIST changes: +ACET650T61 PO; -AMLO10TA5 PO; +AMLO1TAB25 PO; +AMLO2.5T3 PO; +PROAAER10 INH; +SYMB80INH PO; +TRAM50TA2 PO; -TYLE650T35 PO; +[UNRECOGNIZED DRUG - CODE] PO
--- NOTE | 2020-06-05 13:49 | REPMRS ---
Patient History The patient states she has not had a clinical breast exam in over a year. Family history of colorectal cancer in paternal grandmother. 3D TOMOSYNTHESIS WAS PERFORMED. The Violeta Edmond lifetime risk for breast cancer is 4.9%. Volpara density b. Digital Woman Screen Mammo: June 05, 2020 - Exam #: [id number] Bilateral CC and MLO view(s) were taken. Technologist: Cassidy Pagan RT Prior study comparison: February 08, 2019, bilateral digital woman screen mammo performed at [facility]. February 07, 2018, digital woman screen mammo performed at [facility]. FINDINGS: There are scattered fibroglandular densities. There has been no change in the appearance of the mammogram from the prior studies. There is a mild amount of residual fibroglandular tissue which is fairly symmetric. There is no interval development of dominant mass, architectural distortion, or clustered microcalcification suggestive of malignancy. Assessment: BI-RADS/ACR category 1 mammogram. Negative Mammogram. Recommendation Routine screening mammogram in 1 year (for women over age 40). This mammogram was interpreted with the aid of an FDA-approved computer-aided dectection system. Electronically Signed By: Larry Cho MD 06/05/20 1154
== END ==
LOC: M WHC 12:16
PROVIDERS: ATTEND Family Medicine
DX: Z12.31 Encounter for screening mammogram for malignant neoplasm of breast (principal)

== ENCOUNTER 2020-06-09 14:10 | Emergency (ER) | payer MEDICARE ==
[~2020-06-09] VITALS: Ht 157.5 cm; Wt 75.3 kg
[~2020-06-09 14:10] MED LIST changes: -AMLO2.5T3 PO; -PROAAER10 INH; -SYMB80INH PO; -TRAM50TA2 PO; -[UNRECOGNIZED DRUG - CODE] PO
[2020-06-09] MEDS ORDERED: AMLO2.5T3 PO (14:43)
[2020-06-09] MEDS ORDERED: TRAM50TA2 PO (14:43)
[2020-06-09] MEDS ORDERED: [UNRECOGNIZED DRUG - CODE] PO (14:43)
[2020-06-09] MEDS ORDERED: PROAAER10 INH (14:43)
[2020-06-09] MEDS ORDERED: CLON1TAB8 PO (14:43)
[2020-06-09] MEDS ORDERED: SYMB80INH PO (14:43)
[2020-06-09] MEDS ORDERED: LIDOCAINE 1% MDV 20ML VIAL SC ONE (14:45)
[2020-06-09] MEDS ORDERED: BOOSTRIX/ADACEL VACCINE (DIPHTH/PERTUSS/ACELL/TETANUS) 0.5ML SYR IM ONE (14:45)
[2020-06-09 15:08] VITALS: BP 139/98
== END 2020-06-09 15:10 | disposition home or self-care (01) ==
LOC: M ED 14:10
DX: S61.211A Laceration without foreign body of left index finger without damage to nail, initial encounter (principal); W26.0XXA Contact with knife, initial encounter; Y92.9 Unspecified place or not applicable; Y93.9 Activity, unspecified; Y99.9 Unspecified external cause status; Z79.51 Long term (current) use of inhaled steroids; Z79.899 Other long term (current) drug therapy; Z88.1 Allergy status to other antibiotic agents

== ENCOUNTER → 2020-06-18 | Outpatient (CLI) | payer MEDICARE ==
[~2020-06-18] MED LIST changes: +AMLO2.5T3 PO; +PROAAER10 INH; +SYMB80INH PO; +TRAM50TA2 PO; +[UNRECOGNIZED DRUG - CODE] PO
== END ==
LOC: M PAIN 11:01
PROVIDERS: ATTEND Family Medicine
DX: M48.062 Spinal stenosis, lumbar region with neurogenic claudication (principal)

== ENCOUNTER → 2020-06-19 | Outpatient (CLI) | payer MEDICARE ==
[2020-06-19 11:54] LABS: HEMATOCRIT 41.8 % (36.0-47.0); HEMOGLOBIN 13.5 g/dl (12.0-15.5); MEAN CORPUSCULAR HEMOGLOBIN 33.6 pg (27.0-33.0); MEAN CORPUSCULAR HGB CONC 32.3 g/dl (32.0-36.5); PLATELET COUNT, AUTOMATED 382 10^3/uL (150-450); RED BLOOD COUNT 4.02 10^6/uL (4.00-5.40); WHITE BLOOD COUNT 6.8 10^3/uL (4.0-10.0)
[2020-06-19 12:24] LABS: ALBUMIN 3.8 GM/DL (3.2-5.2); ALT/SGPT 29 U/L (12-78); BILIRUBIN,TOTAL 0.4 MG/DL (0.2-1.0); BLOOD UREA NITROGEN 14 MG/DL (7-18); CALCIUM LEVEL 10.4 MG/DL (8.8-10.2); CARBON DIOXIDE LEVEL 33 MEQ/L (21-32); CHLORIDE LEVEL 104 MEQ/L (98-107); CHOLESTEROL LEVEL 238 MG/DL (<200); CHOLESTEROL RISK RATIO 4.175 (<5); CREATININE FOR GFR 0.75 MG/DL (0.55-1.30); GLOMERULAR FILTRATION RATE > 60.0 (>39); GLUCOSE, FASTING 112 MG/DL (70-100); HDL CHOLESTEROL 57 MG/DL (>40); LDL CHOLESTEROL 144 MG/DL (<100); NON-HDL-C 181 MG/DL; POTASSIUM SERUM 5.4 MEQ/L (3.5-5.1); SODIUM LEVEL 140 MEQ/L (136-145); TOTAL 25(OH) VITAMIN D 40.6 NG/ML (30.0-100.0); TOTAL PROTEIN 7.2 GM/DL (6.4-8.2); TRIGLYCERIDES LEVEL 187 MG/DL (<150)
[2020-06-19 12:34] LABS: HEMOGLOBIN A1c 5.8 %
== END ==
LOC: M PLALAB 09:04
PROVIDERS: ATTEND Nurse Practitioner Family
DX: Z00.00 Encounter for general adult medical examination without abnormal findings (principal); Z79.899 Other long term (current) drug therapy

== ENCOUNTER → 2020-07-22 | Outpatient (CLI) | payer MEDICARE ==
--- NOTE | 2020-07-23 09:15 | ECWPNPC ---
PATIENT NAME: FRED MICHELLE : 1950 GENDER: FEMALE VISIT DATE: 07/22/2020 DISCHARGE DATE: 07/22/20 1236 VISIT LOCKED DATE TIME: PHYSICIAN: EMILIA FARAH PHYSICIAN PAGER NO: ACTIVE RESOURCE: EMILIA FARAH REASON FOR APPOINTMENT 1. MED MGMT HISTORY OF PRESENT ILLNESS GENERAL: 70-YEAR-OLD FEMALE IN FOR CHRONIC PAIN FOLLOW-UP. SHE RATES HER PAIN CURRENTLY AT A 7 OUT OF 10 AND DESCRIBES IT SORE. PATIENT HAD RECENT EPIDURAL DONE IN [place] ADMITS THAT THIS WAS INEFFECTIVE IN MANAGING HER PAIN. SHE CONTINUES ON COURSE FOR RECEIVING THE MILD PROCEDURE. -. FALL RISK SCREENING: SCREENING :NO FALLS REPORTED IN THE LAST YEAR PAIN SCREENING: PATIENT HAS A COMPLAINT OF ACUTE OR CHRONIC PAIN :YES LOCATION OF PAIN:LOW BACK, LEFT HIP, RIGHT HIP, THIGH(S) INTENSITY OF PAIN (SCALE OF 1 TO 10):7 WHAT DOES YOUR PAIN FEEL LIKE:ACHING, SHARP, SORE DURATION:CONTINOUS, STEADY, ALL DAY PAIN IS INCREASED BY:ACTIVITIES PAIN IS DECREASED BY:USE OF PAIN MEDICATIONS, SITTING, OTHERS RESTING NURSING NOTE: -. PAIN CENTER INTAKE QUESTIONS: DO YOU HAVE A HISTORY OF MRSA? :NO DO YOU TAKE A BLOOD THINNERS? :NO DO YOU HAVE ANY BLEEDING DISORDERS? :NO ANY NEW NUMBNESS OR WEAKNESS IN YOUR LEGS OR ARMS? :NO ANY PACEMAKER,DEFIBRILLATOR, OR DORSAL COLUMN STIMULATOR? :NO DO YOU HAVE ANY RASHES OR OPEN SORES? :NO ARE YOU ALLERGIC TO IV DYE? :NO ARE YOU DIABETIC? :NO ANY NEW PROBLEMS WITH YOUR MEDICATIONS? :NO HAVE YOU RECEIVED A VACCINE IN THE PAST 30 DAYS? :NO DO YOU PLAN TO RECEIVE A VACCINE IN THE NEXT 21 DAYS? :NO DO YOU NEED ANY PRESCRIPTION? :NO DO YOU TAKE ANY IMMUNOSUPPRESSIVE MEDICATIONS? :NO IS THERE A CHANCE YOU COULD BE ? :NO ARE YOU BREAST FEEDING? :NO CURRENT MEDICATIONS UNKNOWN MULTI FOR HER - TABLET 1 TAB ORALLY DAILY UNKNOWN VITAMIN D3 1000 UNIT CAPSULE 1 CAPSULE ORALLY BID UNKNOWN CALCIUM + D3 600-200 MG-UNIT TABLET 1 TAB ORALLY BID UNKNOWN TYLENOL EXTRA STRENGTH 500 MG TABLET 1 TABLET NEEDED ORALLY EVERY 6 HRS UNKNOWN FLONASE ALLERGY RELIEF 50 MCG/ACT SUSPENSION 1 SPRAY IN EACH NOSTRIL NASALLY BID UNKNOWN SYMBICORT 80-4.5 MCG/ACT AEROSOL 2 PUFFS INHALATION TWICE A DAY NEEDED FOR WHEEZING AND COUGHING UNKNOWN NYSTATIN 888187 UNIT/GM CREAM 1 APPLICATION EXTERNALLY TWICE A DAY UNKNOWN TRIAMCINOLONE ACETONIDE 0.025 % CREAM 1 APPLICATION EXTERNALLY ONCE A DAY UNKNOWN ZETIA 10MG TABLET TAKE 1 TABLET DAILY UNKNOWN LEVOTHYROXINE SODIUM 25 MCG TABLET 1 TABLET ON AN EMPTY STOMACH IN THE MORNING ORALLY ONCE A DAY UNKNOWN CARVEDILOL 12.5 MG TABLET 1 TAB ORALLY TWICE A DAY UNKNOWN LISINOPRIL 40 MG TABLET 1 TABLET ORALLY ONCE A DAY UNKNOWN CLOBETASOL PROPIONATE 0.05 % CREAM 1 APPLICATION EXTERNALLY TWICE A DAY TO AFFECTED AREAS ON ELBOWS AND LEGS UNKNOWN VENLAFAXINE HCL 100 MG TABLET 1.5 TABLET WITH FOOD ORALLY BID UNKNOWN AMLODIPINE BESYLATE 5 MG TABLET 1 TABLET ORALLY ONCE A DAY UNKNOWN CLONAZEPAM 1 MG TABLET CODE A: 1 TAB ORALLY BID, NOTES: CODE A (PANIC DISORDER) UNKNOWN TRAMADOL HCL 50 MG TABLET 2 TABS AM 2 TABLETS AT NOON 2 TABS PM ORALLY EVERY 6 HRS PRN PAIN MDD=6 UNKNOWN CELEBREX 100 MG CAPSULE 1 CAPSULE WITH FOOD ORALLY TWICE A DAY MDD2 UNKNOWN PERCOCET 5-325 MG TABLET 1 TABLET NEEDED ORALLY BID NEEDED UNKNOWN NARCAN 4 MG/0.1ML LIQUID DIRECTED NASALLY FOR EMERGENCY DAILY UNKNOWN AMLODIPINE BESYLATE 5 MG TABLET 1/2 TABLET ORALLY ONCE A DAY UNKNOWN CLOTRIMAZOLE 1 % CREAM 1 APPLICATION EXTERNALLY TWICE A DAY TO GROIN AREA UNKNOWN BELBUCA 75 MCG FILM 1 FILM TO THE GUM BUCALLY FOR PAIN ONCE A DAY UNKNOWN HYDROCODONE-ACETAMINOPHEN 5-325 MG TABLET 1 TABLET NEEDED ORALLY FOR PAIN DAILY MDD1 UNKNOWN MACROBID 100 MG CAPSULE 1 CAPSULE AT BEDTIME WITH FOOD ORALLY BID UNKNOWN FOSFOMYCIN TROMETHAMINE 3 GM PACKET 1 PACKET MIXED IN 3 TO 4 OUNCES OF WATER ORALLY ONCE UNKNOWN LEVOFLOXACIN 250 MG TABLET 1 TABLET ORALLY ONCE A DAY, NOTES: CANCEL FOSFOMYCIN (BECAUSE OF COST) MEDICATION LIST REVIEWED AND RECONCILED WITH THE PATIENT PAST MEDICAL HISTORY HTN (ETT 06/11 NEG), HAS SEEN CARDIOLOGY ANXIETY DEPRESSION HYPOTHYROID WITH 2 SMALL CYSTS HX OF C.DIFF TOBACCO ABUSE ETOH ABUSE IN REMISSION OSTEOPOROSIS ON 2018 DEXA, EVAL'D BY DR. RIOS ENDOCRINOLOGY RECOMMENDED BISPHOSPHANATES THYROID NODULES X 2, SUBCENTIMETER NO HISTORY OF BIOPSY HYPERLIPIDEMIA OSTEOARTHRITIS PSORIASIS ALLERGIES STATINS (FOR ALLERGY USE ONLY): ACHY, PAINFUL MUSCLES - ALLERGY MAGNESIUM: DIARRHEA - ALLERGY TRAZODONE HCL: MUSCLE ACHES - ALLERGY CYMBALTA: SEVERE STOMACH ACHE - SIDE EFFECTS PROZAC: NAUSEA/VOMITING - ALLERGY AUGMENTIN: DIARRHEA - SIDE EFFECTS GABAPENTIN: SEVERE STOMACH ACHE - SIDE EFFECTS HYDROCODONE-ACETAMINOPHEN: SEVERE DIARRHEA, VOMITING - SIDE EFFECTS SURGICAL HISTORY TONSILLECTOMY TUBAL LIGATION HYSTERECTOMY COLONOSCOPY/ENDOSCOPY TURBT 05/18/17 CYSTOSCOPY 01/2019 FAMILY HISTORY FATHER: , DIAGNOSED WITH OTHER MALIGNANT NEOPLASM OF UNSPECIFIED SITE MOTHER: , UNSPECIFIED HEART DISEASE, OTHER SPECIFIED CONDITIONS INFLUENCING HEALTH STATUS PATERNAL GRAND FATHER: , OTHER MALIGNANT NEOPLASM OF UNSPECIFIED SITE PATERNAL GRAND MOTHER: , OTHER MALIGNANT NEOPLASM OF UNSPECIFIED SITE MATERNAL GRAND FATHER: , UNSPECIFIED HEART DISEASE MATERNAL GRAND MOTHER: , OTHER MALIGNANT NEOPLASM OF UNSPECIFIED SITE 1 BROTHER(S) , 1 SISTER(S) . 1 SON(S) , 1 DAUGHTER(S) - HEALTHY. FATHER: SPINE CAMOTHER: ALZHEIMERSPATERNAL GF: BRAIN AND LUNG CA PATERNAL GM: COLON CA MATERNAL GM: CA UNKNOWNSISTER: ARTHRITIS; BACK SURGERY [id number]: ()BRAIN AND LUNG CA. SOCIAL HISTORY GENERAL: TOBACCO USE ARE YOU A:CURRENT SMOKER ARE YOU INTERESTED IN QUITTING?NOT READY TO QUIT COUNSELED THE PATIENT ON SMOKING EFFECTS, EDUCATION ELEOKXVN92/23/2020 HOW MANY CIGARETTES A DAY DO YOU SMOKE?6-10 HOW SOON AFTER YOU WAKE UP DO YOU SMOKE YOUR FIRST CIGARETTE?31-60 MIN HOW OFTEN DO YOU SMOKE CIGARETTES?SOME DAYS, BUT NOT EVERY DAY PATIENT COUNSELED ON THE DANGERS OF TOBACCO USE AND URGED TO QUIT:07/19/2020 SMOKING CESSATION INFORMATION GIVEN07/19/2020 VAPORNO E-CIGARETTENO LATEX QUESTIONNAIRE LATEX ALLERGY : HAVE YOU EVER DEVELOPED ANY TYPE OF REACTION AFTER HANDLING LATEX PRODUCTS SUCH RUBBER GLOVES, CONDOMS, DIAPHRAGMS, BALLOONS, SOCKS, OR UNDERWEAR?NO LATEX ALLERGY : HAVE YOU EVER DEVELOPED ANY TYPE OF REACTION DURING OR AFTER DENTAL APPOINTMENT, VAGINAL/RECTAL EXAMINATION, SURGICAL PROCEDURE, OR ANY OTHER EXPOSURE?NO LATEX RISK : HAVE YOU EVER HAD ANY DIFFICULTY BREATHING OR HIVES AFTER EATING OR HANDLING ANY FRUITS, OR VEGETABLES; SUCH KIWI, BANANAS, STONE FRUITS, OR CHESTNUTSNO LATEX RISK : DO YOU HAVE A PREVIOUS PERSONAL HISTORY OF MORE THAN NINE SURGERIES, SPINA BIFIDA, OR REPEATED CATHERIZATIONS? NO LATEX RISK : ARE YOU FREQUENTLY EXPOSED TO LATEX PRODUCTS IN YOUR OCCUPATION?NO DATE ASKED : 07/22/2020 ALCOHOL SCREENING DID YOU HAVE A DRINK CONTAINING ALCOHOL IN THE PAST YEAR?NO POINTS0 INTERPRETATIONNEGATIVE RECREATIONAL DRUG USE DRUG USE?NO DENIES 07/22/20 CAFFEINE CAFFEINE USE?NO SEXUAL HX HAD SEX IN THE LAST 12 MONTHS (VAGINAL, ORAL, OR ANAL)?NO HAVE YOU EVER HAD AN STD?NO HIV / HEP-C SCREENING HIV TEST OFFERED TO PATIENT:YES DATE OFFERED:09/12/2018 TEST ACCEPTED:NO HEP-C TEST OFFERED TO PATIENT:YES DATE OFFERED:09/12/2018 REASON:PATIENT DECLINED TEST ACCEPTED:NO REASON:PATIENT DECLINED BROCHURE PROVIDED TO PATIENTYES JUDAISM [id number] HINDUISM LANGUAGE LANGUAGES SPOKEN:SLOVENIAN EDUCATION LEVEL OF EDUCATION:NOT FINISHED COLLEGE LEARNING BARRIERS / SPECIAL NEEDS CHANGE FROM LAST VISIT?NO BARRIERS TO LEARNING?NO HEARING IMPAIRED?NO VISION IMPAIRED?YES :CORRECTIVE LENSES COGNITIVELY IMPAIRED?NO READINESS TO LEARN?YES LEARNING PREFERENCES?NO LEARNING CAPABILITIES PRESENT?YES EMOTIONAL BARRIERS?NO SPECIAL DEVICES?YES :CANE RACKET STRINGER NEEDED?NO DOMESTIC VIOLENCE DO YOU FEEL SAFE IN YOUR ENVIRONMENT?YES OCCUPATION: RETIRED. DIET: REGULAR. EXERCISE: WALKS, SWIMS. MARITAL STATUS: . OTHERS AT HOME: NONE. PAIN CLINIC PFS, CLERGY, PUBLIC HEALTH REFERRALS PFS REFERRAL NEEDED?NO CLERGY REFERRAL NEEDED?NO PUBLIC HEALTH REFERRAL NEEDED?NO HAS THE PATIENT BEEN EDUCATED REGARDING HIS/HER PLAN OF CARE?YES HAS THE PATIENT BEEN EDUCATED REGARDING PAIN, THE RISK FOR PAIN, THE IMPORTANCE OF EFFECTIVE PAIN MANAGEMENT, AND THE PAIN ASSESSMENT PROCESS?YES ADVANCE DIRECTIVE ADVANCE DIRECTIVE DISCUSSED WITH PATIENT:YES HCP IS DAUGHTER ROSY FOSTER [phone], COPY SCANNED IN DOCUMENTS HOSPITALIZATION/MAJOR DIAGNOSTIC PROCEDURE SEE SURGERIES FRACTURED PELVIS CHILDBIRTH REVIEW OF SYSTEMS CONSTITUTIONAL: ANY RECENT FEVER NO . CHILLS NO . WEIGHT CHANGE OF UNKNOWN REASONS NO . GASTROENTEROLOGY: NEW UNEXPLAINABLE CHANGES IN BOWEL CONTROL NO . CONSTIPATION NO . GENITOURINARY: ANY NEW CHANGE IN BLADDER CONTROL? NO . NEUROLOGY: NEW ONSET DIZZINESS OR NEUROLOGICAL CHANGES NOT MENTIONED NO . NEW NUMBNESS OR PAIN PATTERNS NOT MENTIONED AND PERTINENT TO TODAY'S VISIT NO . CARDIOLOGY: NEW CHEST PRESSURE NO . NEW CHEST PAIN NO . RESPIRATORY: UNEXPLAINABLE COUGH NO . NEW SHORTNESS OF BREATH NO . VITAL SIGNS WT 167.4 LBS, HT 62.5 IN, BMI 30.13 INDEX, BP 115/60 MM HG, HR 85 /MIN, RR 17 /MIN, TEMP 96.9 F, OXYGEN SAT % 95%, SAFE IN ENV? (Y/N) YES, NA INITIALS DC 11:51, REVIEWED BY: ROMAINE. EXAMINATION GENERAL EXAMINATION: GENERALNO ACUTE DISTRESS, WELL NOURISHED AND HYDRATED. PSYCHAPPROPRIATE MOOD AND AFFECT . LUNGS:CLEAR TO AUSCULTATION BILATERALLY, NO WHEEZES, RHONCHI, RALES. HEART:NO MURMURS, REGULAR RATE AND RHYTHM. ASSESSMENTS INTERVERTEBRAL DISC DISORDER WITH RADICULOPATHY OF LUMBOSACRAL REGION - M51.17 (PRIMARY) TREATMENT INTERVERTEBRAL DISC DISORDER WITH RADICULOPATHY OF LUMBOSACRAL REGION CLINICAL NOTES: 70-YEAR-OLD FEMALE IN FOR CHRONIC PAIN FOLLOW-UP. GIVEN PRESENTING SYMPTOMS RECOMMEND FOLLOW-UP IN 2 MONTHS. PATIENT HAS EXPRESSED UNDERSTANDING OF AND WAS IN AGREEMENT WITH TREATMENT PLAN. GIVEN TIME TO ASK QUESTIONS AND EXPRESS CONCERNS. PROCEDURE CODES [id number] ESTABILISHED PATIENT [facility] CHARGE DISPOSITION & COMMUNICATION FOLLOW UP 2 MONTHS (REASON: BACK PAIN) ELECTRONICALLY SIGNED BY YULISA GARIBAY ON 07/23/2020 AT 09:13 AM EDT DISCLAIMER : THIS IS A VISIT SUMMARY EXTRACTED FROM THE [employer] CHART. IT IS NOT A COPY OF THE [employer] PROGRESS NOTE. TRACEY
== END ==
LOC: M PAIN 11:00
PROVIDERS: ATTEND Family Medicine
DX: M51.17 Intervertebral disc disorders with radiculopathy, lumbosacral region (principal); I10 Essential (primary) hypertension; F41.9 Anxiety disorder, unspecified; F32.9 Major depressive disorder, single episode, unspecified; E03.9 Hypothyroidism, unspecified; F10.11 Alcohol abuse, in remission; E78.5 Hyperlipidemia, unspecified; M81.0 Age-related osteoporosis without current pathological fracture; L40.9 Psoriasis, unspecified; Z79.891 Long term (current) use of opiate analgesic; Z79.899 Other long term (current) drug therapy; F17.210 Nicotine dependence, cigarettes, uncomplicated; Z88.5 Allergy status to narcotic agent; Z88.8 Allergy status to other drugs, medicaments and biological substances

== ENCOUNTER → 2020-12-07 | Outpatient (REF) | payer MEDICARE ==
[~2020-12-07] MED LIST changes: -LISI40TA PO; +LISI40TA4 PO
== END ==
LOC: M LAB REF 18:06
PROVIDERS: ATTEND Physician Assistant
DX: N39.0 Urinary tract infection, site not specified (principal)

== ENCOUNTER → 2020-12-17 | Outpatient (CLI) | payer MEDICARE ==
[2020-12-17 12:32] LABS: BASO # 0.1 10^3/uL (0.0-0.2); BASO % 1.1 % (0.0-1.0); EOS # 0.2 10^3/uL (0.0-0.5); EOS % 3.1 % (0.0-3.0); HEMATOCRIT 41.5 % (36.0-47.0); HEMOGLOBIN 13.3 g/dl (12.0-15.5); LYMPH # 1.6 10^3/uL (1.5-5.0); LYMPH % 26.3 % (24.0-44.0); MEAN CORPUSCULAR HEMOGLOBIN 33.1 pg (27.0-33.0); MEAN CORPUSCULAR VOLUME 103.2 fl (80.0-96.0); MONO # 0.4 10^3/uL (0.0-0.8); MONO % 6.5 % (2.0-8.0); NEUTROPHILS # 3.8 10^3/uL (1.5-8.5); NEUTROPHILS % 62.7 % (36.0-66.0); PLATELET COUNT, AUTOMATED 375 10^3/uL (150-450); RED BLOOD COUNT 4.02 10^6/uL (4.00-5.40); WHITE BLOOD COUNT 6.1 10^3/uL (4.0-10.0)
[2020-12-17 12:58] LABS: HEMOGLOBIN A1c 6.1 %
[2020-12-17 13:09] LABS: ALBUMIN 3.8 GM/DL (3.2-5.2); ALT/SGPT 28 U/L (12-78); BILIRUBIN,TOTAL 0.3 MG/DL (0.2-1.0); BLOOD UREA NITROGEN 9 MG/DL (7-18); CALCIUM LEVEL 9.9 MG/DL (8.8-10.2); CARBON DIOXIDE LEVEL 30 MEQ/L (21-32); CHLORIDE LEVEL 106 MEQ/L (98-107); GLOMERULAR FILTRATION RATE > 60.0 (>39); GLUCOSE, FASTING 141 MG/DL (70-100); POTASSIUM SERUM 4.5 MEQ/L (3.5-5.1); SODIUM LEVEL 141 MEQ/L (136-145); TOTAL PROTEIN 7.2 GM/DL (6.4-8.2)
== END ==
LOC: M WUC 09:04
PROVIDERS: ATTEND Student in an Organized Health Care Education/Training Program
DX: R73.02 Impaired glucose tolerance (oral) (principal); R53.83 Other fatigue

== ENCOUNTER → 2020-12-20 | Outpatient (CLI) | payer MEDICARE ==
--- NOTE | 2020-12-24 05:08 | ECWPNPC ---
PATIENT NAME: FRED MICHELLE : 1950 GENDER: FEMALE VISIT DATE: 12/20/2020 DISCHARGE DATE: 12/20/20 1238 VISIT LOCKED DATE TIME: PHYSICIAN: EMILIA FARAH PHYSICIAN PAGER NO: ACTIVE RESOURCE: EMILIA FARAH REASON FOR APPOINTMENT 1. BACK PAIN HISTORY OF PRESENT ILLNESS GENERAL: 70-YEAR-OLD FEMALE IN FOR CHRONIC PAIN FOLLOW-UP. PATIENT RECENTLY HAD THE MILD PROCEDURE PERFORMED AND SHE ADMITS TODAY THAT THIS HAS BEEN EXTREMELY BENEFICIAL AND REPORTS NO PAIN AT THIS TIME. SHE CONTINUES TO TAKE TRAMADOL ON AN -NEEDED BASIS BUT ADMITS TO SIGNIFICANT DECREASE IN IT'S USAGE. -. FALL RISK SCREENING: SCREENING : NO FALLS REPORTED IN THE LAST YEAR , : NO FALLS REPORTED IN THE LAST YEAR. PAIN SCREENING: PATIENT HAS A COMPLAINT OF ACUTE OR CHRONIC PAIN :YES LOCATION OF PAIN: MID SECTION INTENSITY OF PAIN (SCALE OF 1 TO 10):3 WHAT DOES YOUR PAIN FEEL LIKE:SORE DURATION:CONTINOUS NURSING NOTE: - -. PAIN CENTER INTAKE QUESTIONS: DO YOU HAVE A HISTORY OF MRSA? :NO DO YOU TAKE A BLOOD THINNERS? :NO DO YOU HAVE ANY BLEEDING DISORDERS? :NO ANY NEW NUMBNESS OR WEAKNESS IN YOUR LEGS OR ARMS? :NO ANY PACEMAKER,DEFIBRILLATOR, OR DORSAL COLUMN STIMULATOR? :NO DO YOU HAVE ANY RASHES OR OPEN SORES? :NO ARE YOU ALLERGIC TO IV DYE? :NO ARE YOU DIABETIC? :NO ANY NEW PROBLEMS WITH YOUR MEDICATIONS? :NO HAVE YOU RECEIVED A VACCINE IN THE PAST 30 DAYS? :YES IF SO WHAT VACCINE AND WHEN? 2ND DOSE OF COVID VACCINE 12/06/20 DO YOU PLAN TO RECEIVE A VACCINE IN THE NEXT 21 DAYS? :NO DO YOU NEED ANY PRESCRIPTION? :NO DO YOU TAKE ANY IMMUNOSUPPRESSIVE MEDICATIONS? :NO DO YOU HAVE ANY KIDNEY OR LIVER DISEASE? :NO IS THERE A CHANCE YOU COULD BE ? :N/A ARE YOU BREAST FEEDING? :N/A CURRENT MEDICATIONS TAKING MULTI FOR HER - TABLET 1 TAB ORALLY DAILY TAKING VITAMIN D3 1000 UNIT CAPSULE 1 CAPSULE ORALLY BID TAKING CALCIUM + D3 600-200 MG-UNIT TABLET 1 TAB ORALLY BID TAKING TYLENOL EXTRA STRENGTH 500 MG TABLET 1 TABLET NEEDED ORALLY EVERY 6 HRS TAKING SYMBICORT 80-4.5 MCG/ACT AEROSOL 2 PUFFS INHALATION TWICE A DAY NEEDED FOR WHEEZING AND COUGHING TAKING NYSTATIN 459030 UNIT/GM CREAM 1 APPLICATION EXTERNALLY TWICE A DAY TAKING TRIAMCINOLONE ACETONIDE 0.025 % CREAM 1 APPLICATION EXTERNALLY ONCE A DAY TAKING CARVEDILOL 12.5 MG TABLET 1 TAB ORALLY TWICE A DAY TAKING CLOBETASOL PROPIONATE 0.05 % CREAM 1 APPLICATION EXTERNALLY TWICE A DAY TO AFFECTED AREAS ON ELBOWS AND LEGS TAKING AMLODIPINE BESYLATE 5 MG TABLET 1 TABLET ORALLY ONCE A DAY TAKING CLONAZEPAM 1 MG TABLET CODE A: 1 TAB ORALLY BID, NOTES: CODE A (PANIC DISORDER) TAKING VENLAFAXINE HCL 100 MG TABLET 1.5 TABLET WITH FOOD ORALLY BID TAKING LISINOPRIL 40 MG TABLET 1 TABLET ORALLY ONCE A DAY TAKING LEVOTHYROXINE SODIUM 25 MCG TABLET 1 TABLET ON AN EMPTY STOMACH IN THE MORNING ORALLY ONCE A DAY TAKING ZETIA 10MG TABLET TAKE 1 TABLET DAILY ORALLY ONCE A DAY TAKING TRAMADOL HCL 50 MG TABLET 2 TABS AM 2 TABLETS AT NOON 2 TABS PM ORALLY EVERY 6 HRS PRN PAIN MDD=6 TAKING FLONASE ALLERGY RELIEF 50 MCG/ACT SUSPENSION 1 SPRAY IN EACH NOSTRIL NASALLY ONCE A DAY NOT-TAKING CELEBREX 100 MG CAPSULE 1 CAPSULE WITH FOOD ORALLY TWICE A DAY MDD2 NOT-TAKING PERCOCET 5-325 MG TABLET 1 TABLET NEEDED ORALLY BID NEEDED NOT-TAKING NARCAN 4 MG/0.1ML LIQUID DIRECTED NASALLY FOR EMERGENCY DAILY NOT-TAKING AMLODIPINE BESYLATE 5 MG TABLET 1/2 TABLET ORALLY ONCE A DAY NOT-TAKING CLOTRIMAZOLE 1 % CREAM 1 APPLICATION EXTERNALLY TWICE A DAY TO GROIN AREA NOT-TAKING BELBUCA 75 MCG FILM 1 FILM TO THE GUM BUCALLY FOR PAIN ONCE A DAY NOT-TAKING HYDROCODONE-ACETAMINOPHEN 5-325 MG TABLET 1 TABLET NEEDED ORALLY FOR PAIN DAILY MDD1 NOT-TAKING MACROBID 100 MG CAPSULE 1 CAPSULE AT BEDTIME WITH FOOD ORALLY BID NOT-TAKING FOSFOMYCIN TROMETHAMINE 3 GM PACKET 1 PACKET MIXED IN 3 TO 4 OUNCES OF WATER ORALLY ONCE NOT-TAKING LEVOFLOXACIN 250 MG TABLET 1 TABLET ORALLY ONCE A DAY, NOTES: CANCEL FOSFOMYCIN (BECAUSE OF COST) MEDICATION LIST REVIEWED AND RECONCILED WITH THE PATIENT PAST MEDICAL HISTORY HTN (ETT 06/11 NEG), HAS SEEN CARDIOLOGY ANXIETY DEPRESSION HYPOTHYROID WITH 2 SMALL CYSTS HX OF C.DIFF TOBACCO ABUSE ETOH ABUSE IN REMISSION OSTEOPOROSIS ON 2018 DEXA, EVAL'D BY DR. RIOS ENDOCRINOLOGY RECOMMENDED BISPHOSPHANATES THYROID NODULES X 2, SUBCENTIMETER NO HISTORY OF BIOPSY HYPERLIPIDEMIA OSTEOARTHRITIS PSORIASIS ALLERGIES STATINS (FOR ALLERGY USE ONLY): ACHY, PAINFUL MUSCLES - ALLERGY MAGNESIUM: DIARRHEA - ALLERGY TRAZODONE HCL: MUSCLE ACHES - ALLERGY CYMBALTA: SEVERE STOMACH ACHE - SIDE EFFECTS PROZAC: NAUSEA/VOMITING - ALLERGY AUGMENTIN: DIARRHEA - SIDE EFFECTS GABAPENTIN: SEVERE STOMACH ACHE - SIDE EFFECTS HYDROCODONE-ACETAMINOPHEN: SEVERE DIARRHEA, VOMITING - SIDE EFFECTS REVIEW OF SYSTEMS CONSTITUTIONAL: ANY RECENT FEVER NO . CHILLS NO . WEIGHT CHANGE OF UNKNOWN REASONS NO . GASTROENTEROLOGY: NEW UNEXPLAINABLE CHANGES IN BOWEL CONTROL NO . CONSTIPATION NO . GENITOURINARY: ANY NEW CHANGE IN BLADDER CONTROL? NO . NEUROLOGY: NEW ONSET DIZZINESS OR NEUROLOGICAL CHANGES NOT MENTIONED NO . NEW NUMBNESS OR PAIN PATTERNS NOT MENTIONED AND PERTINENT TO TODAY'S VISIT NO . CARDIOLOGY: NEW CHEST PRESSURE NO . PATIENT DENIES NO . RESPIRATORY: UNEXPLAINABLE COUGH NO . NEW SHORTNESS OF BREATH NO . VITAL SIGNS WT 169.4 LBS, HT 62.5 IN, BMI 30.49 INDEX, BP 123/67 MM HG, HR 89 /MIN, RR 17 /MIN, TEMP 96.0 F, OXYGEN SAT % 93%, NA INITIALS SC 11:25. EXAMINATION GENERAL EXAMINATION: GENERALNO ACUTE DISTRESS, WELL NOURISHED AND HYDRATED. PSYCHAPPROPRIATE MOOD AND AFFECT . LUNGS:CLEAR TO AUSCULTATION BILATERALLY, NO WHEEZES, RHONCHI, RALES. HEART:NO MURMURS, REGULAR RATE AND RHYTHM. 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 NOTES: 70-YEAR-OLD FEMALE IN FOR CHRONIC PAIN FOLLOW-UP. GIVEN PRESENTING SYMPTOMS RECOMMENDED CONTINUATION OF TRAMADOL WITH FOLLOW-UP IN 3 MONTHS. PATIENT WILL HAVE U TOX PERFORMED TODAY. PATIENT HAS EXPRESSED UNDERSTANDING OF AND WAS IN AGREEMENT WITH TREATMENT PLAN. GIVEN TIME TO ASK QUESTIONS AND EXPRESS CONCERNS. , ISTOP REGISTRY REVIEWED AND DEMONSTRATES COMPLLIANCE. (REF # ) BRINGS IN MEDICATIONS WHICH IS APPROPRIATE FOR WHAT WAS DISPENSED. RECENT URINE TOXICOLOGY REVIEWED. NO UNAUTHORIZED MEDICATIONS. NO ILLICIT SUBSTANCES AND PRESCRIBED MEDICATIONS WERE PRESENT. [facility]ON:STRENGTH AND STRETCH DISPOSITION & COMMUNICATION FOLLOW UP 3 MONTHS (REASON: LOW BACK PAIN) ELECTRONICALLY SIGNED BY YULISA GARIBAY ON 12/23/2020 AT 08:27 AM EDT DISCLAIMER : THIS IS A VISIT SUMMARY EXTRACTED FROM THE [employer] CHART. IT IS NOT A COPY OF THE [employer] PROGRESS NOTE. TRACEY
== END ==
LOC: M PAIN 11:00
PROVIDERS: ATTEND Family Medicine
DX: M51.17 Intervertebral disc disorders with radiculopathy, lumbosacral region (principal); G89.29 Other chronic pain; E03.9 Hypothyroidism, unspecified; Z86.59 Personal history of other mental and behavioral disorders; Z88.1 Allergy status to other antibiotic agents; Z88.5 Allergy status to narcotic agent; Z88.8 Allergy status to other drugs, medicaments and biological substances; Z79.891 Long term (current) use of opiate analgesic; Z79.899 Other long term (current) drug therapy

== ENCOUNTER → 2021-01-27 | Outpatient (CLI) | payer MEDICARE ==
--- NOTE | 2021-01-27 14:40 | REP ---
INDICATION: PAIN. COMPARISON: 12/05/2018 two views of the right hip and 11/22/2017 AP pelvis TECHNIQUE: AP pelvis with AP and frog-lateral views of each hip FINDINGS: There is moderate asymmetric hip joint space narrowing bilaterally. This has increased from the prior exams. There is no acute fracture, dislocation, or subluxation. Degenerative changes seen involving the sacroiliac joints and imaged portion of the spine. IMPRESSION: Chronic changes as described above. <Electronically signed by Willy Ahuja > 01/27/21 2025
== END ==
LOC: M WUC 12:45
PROVIDERS: ATTEND Nurse Practitioner Family
DX: M16.0 Bilateral primary osteoarthritis of hip (principal)

== ENCOUNTER → 2021-03-21 | Outpatient (CLI) | payer MEDICARE ==
--- NOTE | 2021-03-25 04:45 | ECWPNPC ---
PATIENT NAME: FRED MICHELLE : 1950 GENDER: FEMALE VISIT DATE: 03/21/2021 DISCHARGE DATE: 03/21/21 1146 VISIT LOCKED DATE TIME: PHYSICIAN: EMILIA FARAH PHYSICIAN PAGER NO: ACTIVE RESOURCE: EMILIA FARAH REASON FOR APPOINTMENT 1. LOW BACK PAIN HISTORY OF PRESENT ILLNESS GENERAL: HPI 70-YEAR-OLD FEMALE FOR CHRONIC PAIN FOLLOW-UP. SHE RATES HER PAIN CURRENTLY AT A 4 OUT OF 10. SHE FEELS HER MEDICATIONS ARE HELPFUL AND DENIES MED SIDE EFFECTS AT THIS TIME. PATIENT DOES ADMIT TO INCREASED PAIN IN HER HIPS BUT STATES THAT SHE IS BEING SEEN FOR THIS AND TREATED WITH INJECTIONS.. -. FALL RISK SCREENING: SCREENING ONE FALL REPORTED IN THE LAST YEAR WITHOUT INJURY. PAIN SCREENING: PATIENT HAS A COMPLAINT OF ACUTE OR CHRONIC PAIN :YES LOCATION OF PAIN:LOW BACK PATIENT DENIES PAIN IN LOW BACK, 4 IN HIPS INTENSITY OF PAIN (SCALE OF 1 TO 10):0 NURSING NOTE: -. PAIN CENTER INTAKE QUESTIONS: DO YOU HAVE A HISTORY OF MRSA? :NO DO YOU TAKE A BLOOD THINNERS? :NO DO YOU HAVE ANY BLEEDING DISORDERS? :NO ANY NEW NUMBNESS OR WEAKNESS IN YOUR LEGS OR ARMS? :NO ANY PACEMAKER,DEFIBRILLATOR, OR DORSAL COLUMN STIMULATOR? :NO DO YOU HAVE ANY RASHES OR OPEN SORES? :NO ARE YOU ALLERGIC TO IV DYE? :NO ARE YOU DIABETIC? :NO ANY NEW PROBLEMS WITH YOUR MEDICATIONS? :NO HAVE YOU RECEIVED A VACCINE IN THE PAST 30 DAYS? :NO SECOND COVID VACCINATION 12/06/2020 DO YOU PLAN TO RECEIVE A VACCINE IN THE NEXT 21 DAYS? :NO DO YOU NEED ANY PRESCRIPTION? :YES TRAMADOL DO YOU TAKE ANY IMMUNOSUPPRESSIVE MEDICATIONS? :NO DO YOU HAVE ANY KIDNEY OR LIVER DISEASE? :NO IS THERE A CHANCE YOU COULD BE ? :N/A ARE YOU BREAST FEEDING? :N/A CURRENT MEDICATIONS TAKING MULTI FOR HER - TABLET 1 TAB ORALLY DAILY TAKING VITAMIN D3 1000 UNIT CAPSULE 1 CAPSULE ORALLY BID TAKING CALCIUM + D3 600-200 MG-UNIT TABLET 1 TAB ORALLY BID TAKING TYLENOL EXTRA STRENGTH 500 MG TABLET 1 TABLET NEEDED ORALLY EVERY 6 HRS TAKING SYMBICORT 80-4.5 MCG/ACT AEROSOL 2 PUFFS INHALATION TWICE A DAY NEEDED FOR WHEEZING AND COUGHING TAKING NYSTATIN [id number] UNIT/GM CREAM 1 APPLICATION EXTERNALLY TWICE A DAY TAKING TRIAMCINOLONE ACETONIDE 0.025 % CREAM 1 APPLICATION EXTERNALLY ONCE A DAY TAKING CLOBETASOL PROPIONATE 0.05 % CREAM 1 APPLICATION EXTERNALLY TWICE A DAY TO AFFECTED AREAS ON ELBOWS AND LEGS TAKING FLONASE ALLERGY RELIEF 50 MCG/ACT SUSPENSION 1 SPRAY IN EACH NOSTRIL NASALLY ONCE A DAY TAKING AMLODIPINE BESYLATE 5 MG TABLET 1 TABLET ORALLY ONCE A DAY TAKING CLONAZEPAM 1 MG TABLET CODE A: 1 TAB ORALLY BID, NOTES: CODE A (PANIC DISORDER) TAKING TRAMADOL HCL 50 MG TABLET 2 TABS AM 2 TABLETS AT NOON 2 TABS PM ORALLY EVERY 6 HRS PRN PAIN MDD=6 TAKING LISINOPRIL 40 MG TABLET 1 TABLET ORALLY ONCE A DAY TAKING LEVOTHYROXINE SODIUM 25 MCG TABLET 1 TABLET ON AN EMPTY STOMACH IN THE MORNING ORALLY ONCE A DAY TAKING ZETIA 10MG TABLET TAKE 1 TABLET DAILY ORALLY ONCE A DAY TAKING VENLAFAXINE HCL 100 MG TABLET 1.5 TABLET WITH FOOD ORALLY BID TAKING CARVEDILOL 12.5 MG TABLET 1 TAB ORALLY TWICE A DAY NOT-TAKING CELEBREX 100 MG CAPSULE 1 CAPSULE WITH FOOD ORALLY TWICE A DAY MDD2 NOT-TAKING PERCOCET 5-325 MG TABLET 1 TABLET NEEDED ORALLY BID NEEDED NOT-TAKING NARCAN 4 MG/0.1ML LIQUID DIRECTED NASALLY FOR EMERGENCY DAILY NOT-TAKING CLOTRIMAZOLE 1 % CREAM 1 APPLICATION EXTERNALLY TWICE A DAY TO GROIN AREA NOT-TAKING BELBUCA 75 MCG FILM 1 FILM TO THE GUM BUCALLY FOR PAIN ONCE A DAY NOT-TAKING HYDROCODONE-ACETAMINOPHEN 5-325 MG TABLET 1 TABLET NEEDED ORALLY FOR PAIN DAILY MDD1 NOT-TAKING MACROBID 100 MG CAPSULE 1 CAPSULE AT BEDTIME WITH FOOD ORALLY BID NOT-TAKING FOSFOMYCIN TROMETHAMINE 3 GM PACKET 1 PACKET MIXED IN 3 TO 4 OUNCES OF WATER ORALLY ONCE NOT-TAKING LEVOFLOXACIN 250 MG TABLET 1 TABLET ORALLY ONCE A DAY, NOTES: CANCEL FOSFOMYCIN (BECAUSE OF COST) MEDICATION LIST REVIEWED AND RECONCILED WITH THE PATIENT PAST MEDICAL HISTORY HTN (ETT 06/11 NEG), HAS SEEN CARDIOLOGY ANXIETY DEPRESSION HYPOTHYROID WITH 2 SMALL CYSTS HX OF C.DIFF TOBACCO ABUSE ETOH ABUSE IN REMISSION OSTEOPOROSIS ON 2018 DEXA, EVAL'D BY DR. RIOS ENDOCRINOLOGY RECOMMENDED BISPHOSPHANATES THYROID NODULES X 2, SUBCENTIMETER NO HISTORY OF BIOPSY HYPERLIPIDEMIA OSTEOARTHRITIS PSORIASIS ALLERGIES STATINS (FOR ALLERGY USE ONLY): ACHY, PAINFUL MUSCLES - ALLERGY MAGNESIUM: DIARRHEA - ALLERGY TRAZODONE HCL: MUSCLE ACHES - ALLERGY CYMBALTA: SEVERE STOMACH ACHE - SIDE EFFECTS PROZAC: NAUSEA/VOMITING - ALLERGY AUGMENTIN: DIARRHEA - SIDE EFFECTS GABAPENTIN: SEVERE STOMACH ACHE - SIDE EFFECTS HYDROCODONE-ACETAMINOPHEN: SEVERE DIARRHEA, VOMITING - SIDE EFFECTS SOCIAL HISTORY GENERAL: TOBACCO USE ARE YOU A:CURRENT SMOKER ARE YOU INTERESTED IN QUITTING?NOT READY TO QUIT COUNSELED THE PATIENT ON SMOKING EFFECTS, EDUCATION [id number]/25/2021 HOW MANY CIGARETTES A DAY DO YOU SMOKE?6-10 HOW SOON AFTER YOU WAKE UP DO YOU SMOKE YOUR FIRST CIGARETTE?31-60 MIN HOW OFTEN DO YOU SMOKE CIGARETTES?EVERY DAY PATIENT COUNSELED ON THE DANGERS OF TOBACCO USE AND URGED TO QUIT:03/21/2021 SMOKING CESSATION INFORMATION GIVEN12/26/2020 VAPORNO E-CIGARETTENO LATEX QUESTIONNAIRE LATEX ALLERGY : HAVE YOU EVER DEVELOPED ANY TYPE OF REACTION AFTER HANDLING LATEX PRODUCTS SUCH RUBBER GLOVES, CONDOMS, DIAPHRAGMS, BALLOONS, SOCKS, OR UNDERWEAR?NO LATEX ALLERGY : HAVE YOU EVER DEVELOPED ANY TYPE OF REACTION DURING OR AFTER DENTAL APPOINTMENT, VAGINAL/RECTAL EXAMINATION, SURGICAL PROCEDURE, OR ANY OTHER EXPOSURE?NO LATEX RISK : HAVE YOU EVER HAD ANY DIFFICULTY BREATHING OR HIVES AFTER EATING OR HANDLING ANY FRUITS, OR VEGETABLES; SUCH KIWI, BANANAS, STONE FRUITS, OR CHESTNUTSNO LATEX RISK : DO YOU HAVE A PREVIOUS PERSONAL HISTORY OF MORE THAN NINE SURGERIES, SPINA BIFIDA, OR REPEATED CATHERIZATIONS? NO LATEX RISK : ARE YOU FREQUENTLY EXPOSED TO LATEX PRODUCTS IN YOUR OCCUPATION?NO DATE ASKED : 03/21/2021 ALCOHOL USE: NO. ALCOHOL SCREENING DID YOU HAVE A DRINK CONTAINING ALCOHOL IN THE PAST YEAR?NO POINTS0 INTERPRETATIONNEGATIVE RECREATIONAL DRUG USE DRUG USE?NO CAFFEINE CAFFEINE USE?NO SEXUAL HX HAD SEX IN THE LAST 12 MONTHS (VAGINAL, ORAL, OR ANAL)?NO HAVE YOU EVER HAD AN STD?NO HIV / HEP-C SCREENING HIV TEST OFFERED TO PATIENT:YES DATE OFFERED:12/04/2020 TEST ACCEPTED:NO HEP-C TEST OFFERED TO PATIENT:YES DATE OFFERED:12/04/2020 REASON:PATIENT DECLINED TEST ACCEPTED:NO REASON:PATIENT DECLINED BROCHURE PROVIDED TO PATIENTYES SPIRITISM [id number] WORSHIP LANGUAGE LANGUAGES SPOKEN:GREEK EDUCATION LEVEL OF EDUCATION:NOT FINISHED COLLEGE LEARNING BARRIERS / SPECIAL NEEDS CHANGE FROM LAST VISIT?YES BARRIERS TO LEARNING?NO HEARING IMPAIRED?NO VISION IMPAIRED?YES :CORRECTIVE LENSES COGNITIVELY IMPAIRED?NO READINESS TO LEARN?YES LEARNING PREFERENCES?NO LEARNING CAPABILITIES PRESENT?YES EMOTIONAL BARRIERS?NO SPECIAL DEVICES?NO BENCH TOOL MAKER NEEDED?NO DOMESTIC VIOLENCE DO YOU FEEL SAFE IN YOUR ENVIRONMENT?YES OCCUPATION: RETIRED. DIET: REGULAR. EXERCISE: WALKS, SWIMS. MARITAL STATUS: . OTHERS AT HOME: NONE. - PFS REFERRAL NEEDED?NO CLERGY REFERRAL NEEDED?NO PUBLIC HEALTH REFERRAL NEEDED?NO HAS THE PATIENT BEEN EDUCATED REGARDING HIS/HER PLAN OF CARE?YES HAS THE PATIENT BEEN EDUCATED REGARDING PAIN, THE RISK FOR PAIN, THE IMPORTANCE OF EFFECTIVE PAIN MANAGEMENT, AND THE PAIN ASSESSMENT PROCESS?YES ADVANCE DIRECTIVE ADVANCE DIRECTIVE DISCUSSED WITH PATIENT:YES HCP IS DAUGHTER ROSY FOSTER [phone], COPY SCANNED IN DOCUMENTS REVIEW OF SYSTEMS CONSTITUTIONAL: ANY RECENT FEVER NO . CHILLS NO . WEIGHT CHANGE OF UNKNOWN REASONS NO . GASTROENTEROLOGY: NEW UNEXPLAINABLE CHANGES IN BOWEL CONTROL NO . CONSTIPATION NO . GENITOURINARY: ANY NEW CHANGE IN BLADDER CONTROL? NO . NEUROLOGY: NEW ONSET DIZZINESS OR NEUROLOGICAL CHANGES NOT MENTIONED NO . NEW NUMBNESS OR PAIN PATTERNS NOT MENTIONED AND PERTINENT TO TODAY'S VISIT NO . CARDIOLOGY: NEW CHEST PRESSURE NO . PATIENT DENIES NO . RESPIRATORY: UNEXPLAINABLE COUGH NO . NEW SHORTNESS OF BREATH NO . VITAL SIGNS WT 163.4 LBS, HT 62.5 IN, BMI 29.41 INDEX, BP 116/66 MM HG, HR 86 /MIN, RR 18 /MIN, TEMP 96.2 F, OXYGEN SAT % 95%, SAFE IN ENV? (Y/N) YES, NA INITIALS RI 11:28, REVIEWED BY: REJI BOYLE MA. EXAMINATION GENERAL EXAMINATION: GENERALNO ACUTE DISTRESS, WELL NOURISHED AND HYDRATED. PSYCHAPPROPRIATE MOOD AND AFFECT . LUNGS:CLEAR TO AUSCULTATION BILATERALLY, NO WHEEZES, RHONCHI, RALES. HEART:NO MURMURS, REGULAR RATE AND RHYTHM. 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 GIVEN PRESENTING SYMPTOMS RECOMMEND CONTINUATION OF CURRENT MEDICATION REGIMEN WITH FOLLOW-UP IN 3 MONTHS. PATIENT HAS EXPRESSED UNDERSTANDING OF AND WAS IN AGREEMENT WITH TREATMENT PLAN. GIVEN TIME BEST QUESTIONS AND EXPRESS CONCERNS. ISTOP REGISTRY REVIEWED AND DEMONSTRATES COMPLLIANCE. (REF #[id number] ) BRINGS IN MEDICATIONS WHICH IS APPROPRIATE FOR WHAT WAS DISPENSED. RECENT URINE TOXICOLOGY REVIEWED. NO UNAUTHORIZED MEDICATIONS. NO ILLICIT SUBSTANCES AND PRESCRIBED MEDICATIONS WERE PRESENT. SPINAL STENOSIS OF LUMBAR REGION WITH NEUROGENIC CLAUDICATION REFILL TRAMADOL HCL TABLET, 50 MG, 2 TABS AM 2 TABLETS AT NOON 2 TABS PM, ORALLY, EVERY 6 HRS PRN PAIN MDD=6, 30 DAYS, 180, REFILLS 2 PROCEDURE CODES FA211 ESTABILISHED PATIENT [facility] CHARGE DISPOSITION & COMMUNICATION FOLLOW UP 3 MONTHS (REASON: LOW BACK PAIN ) ELECTRONICALLY SIGNED BY YULISA GARIBAY ON 03/24/2021 AT 08:47 AM EDT DISCLAIMER : THIS IS A VISIT SUMMARY EXTRACTED FROM THE [employer] CHART. IT IS NOT A COPY OF THE [employer] PROGRESS NOTE. TRACEY
== END ==
LOC: M PAIN 11:15
PROVIDERS: ATTEND Family Medicine
DX: M51.16 Intervertebral disc disorders with radiculopathy, lumbar region (principal); M48.062 Spinal stenosis, lumbar region with neurogenic claudication; G89.29 Other chronic pain; E03.9 Hypothyroidism, unspecified; F17.210 Nicotine dependence, cigarettes, uncomplicated; Z86.59 Personal history of other mental and behavioral disorders; Z88.1 Allergy status to other antibiotic agents; Z88.5 Allergy status to narcotic agent; Z88.8 Allergy status to other drugs, medicaments and biological substances; Z79.891 Long term (current) use of opiate analgesic; Z79.899 Other long term (current) drug therapy

== ENCOUNTER → 2021-04-10 | Outpatient (REF) | payer MEDICARE ==
[2021-04-10 11:42] LABS: APPEARANCE, URINE HAZY (CLEAR); BACTERIA, URINE AUTO 1+ (NEGATIVE); BILIRUBIN, URINE AUTO NEGATIVE (NEGATIVE); BLOOD, URINE BLOOD NEGATIVE (NEGATIVE); COLOR, URINE YELLOW (YELLOW); GLUCOSE, URINE (UA) AUTO NEGATIVE (NEGATIVE); KETONE, URINE AUTO NEGATIVE (NEGATIVE); LEUKOCYTE ESTERASE, URINE AUTO 1+ (NEGATIVE); MUCUS, URINE SMALL (NEGATIVE); NITRITE, URINE AUTO NEGATIVE (NEGATIVE); PROTEIN, URINE AUTO NEGATIVE (NEGATIVE); RBC, URINE AUTO 1 /HPF (0-3); SPECIFIC GRAVITY URINE AUTO 1.015 (1.002-1.035); SQUAMOUS EPITHELIAL CELL UR AU 2 /HPF (0-6); UROBILINOGEN, URINE AUTO 0.2 mg/dL (0.0-2.0); WBC, URINE AUTO 5 /HPF (0-3)
== END ==
LOC: M SMT 11:16
PROVIDERS: ATTEND Nurse Practitioner Women's Health
DX: R32 Unspecified urinary incontinence (principal); R35.0 Frequency of micturition
CPT/HCPCS: 51798; 81001; 87086; G0463

== ENCOUNTER 2021-04-24 14:20 | Outpatient (RCR) | payer MEDICARE | END 2021-04-26 | LOC: M PT 14:20 | PROVIDERS: ATTEND Family Medicine | DX: M51.16 Intervertebral disc disorders with radiculopathy, lumbar region (principal) ==

== ENCOUNTER → 2021-04-25 | Outpatient (CLI) | payer MEDICARE | LOC: M SOG 10:25 | PROVIDERS: ATTEND Orthopaedic Surgery Adult Reconstructive Orthopaedic Surgery | DX: M25.551 Pain in right hip (principal); M25.552 Pain in left hip ==

== ENCOUNTER 2021-05-13 12:50 | Outpatient (RCR) | payer MEDICARE | END 2021-05-27 | LOC: M PT 12:50 | PROVIDERS: ATTEND Family Medicine | DX: M51.16 Intervertebral disc disorders with radiculopathy, lumbar region (principal); M54.5 Low back pain; M47.816 Spondylosis without myelopathy or radiculopathy, lumbar region; M48.062 Spinal stenosis, lumbar region with neurogenic claudication ==

== ENCOUNTER → 2021-06-20 | Outpatient (CLI) | payer MEDICARE | LOC: M PAIN 11:15 | PROVIDERS: ATTEND Anesthesiology | DX: M51.16 Intervertebral disc disorders with radiculopathy, lumbar region (principal); M51.17 Intervertebral disc disorders with radiculopathy, lumbosacral region; G89.29 Other chronic pain; E03.9 Hypothyroidism, unspecified; F17.210 Nicotine dependence, cigarettes, uncomplicated; Z86.59 Personal history of other mental and behavioral disorders; Z88.1 Allergy status to other antibiotic agents; Z88.5 Allergy status to narcotic agent; Z88.8 Allergy status to other drugs, medicaments and biological substances; Z79.891 Long term (current) use of opiate analgesic; Z79.899 Other long term (current) drug therapy ==

== ENCOUNTER → 2021-06-25 | Outpatient (CLI) | payer MEDICARE ==
--- NOTE | 2021-06-26 00:31 | REPVR ---
PROCEDURE INFORMATION: Exam: MR Lumbar Spine Without Contrast Exam date and time: 06/25/2021 11:35 AM Age: 71 years old Clinical indication: Pain; Lumbago; Additional info: Disc disorder TECHNIQUE: Imaging protocol: Multiplanar magnetic resonance images of the lumbar spine without intravenous contrast. COMPARISON: MRI-Spine, L.S. without con 01/16/2020 10:11 AM FINDINGS: Vertebral body heights are maintained. Modic type 1 edematous degenerative endplate change anteriorly at T10-T11. No abnormal marrow signal in the lumbar spine. 0.4 cm grade 1 anterolisthesis of L4 on L5. No cord compression. No abnormal cord signal. Conus medullaris terminates at the L1 level. Paravertebral soft tissues are unremarkable. L1-L2: Central disc protrusion superimposed over broad-based disc bulge and facet hypertrophy cause mild to moderate canal narrowing. Moderate bilateral foraminal narrowing. L2-L3: Broad-based disc bulge and facet hypertrophy cause mild to moderate canal narrowing. Mild left and severe right foraminal narrowing with compression of the exiting right L2 nerve root. L3-L4: Broad-based disc bulge and facet hypertrophy cause mild to moderate canal narrowing with effacement of the bilateral lateral recesses. Moderate left and severe right foraminal narrowing with compression of the exiting right L3 nerve root. L4-L5: Combination of anterolisthesis, broad-based disc bulge, and facet hypertrophy cause moderate to severe canal narrowing with effacement of the bilateral lateral recesses and slight crowding of the cauda equina. Moderate right and severe left foraminal narrowing with impingement upon the exiting left L4 nerve root. L5-S1: Broad-based disc bulge and facet hypertrophy cause moderate right and severe left foraminal narrowing with impingement upon the exiting left L5 nerve root. IMPRESSION: Multilevel spondylotic changes of the lumbar spine, including moderate to severe canal narrowing at L4-L5 with slight crowding of the cauda equina, as detailed above. Electronically signed by: Zeb Alonzo On 06/26/2021 00:30:51 AM
== END ==
LOC: M RAD 10:59
PROVIDERS: ATTEND Anesthesiology
DX: M51.26 Other intervertebral disc displacement, lumbar region (principal)

== ENCOUNTER → 2021-07-07 | Outpatient (REF) | payer MEDICARE ==
[2021-07-07 17:39] LABS: APPEARANCE, URINE CLEAR (CLEAR); BACTERIA, URINE AUTO NEGATIVE (NEGATIVE); BILIRUBIN, URINE AUTO NEGATIVE (NEGATIVE); BLOOD, URINE BLOOD NEGATIVE (NEGATIVE); COLOR, URINE STRAW (YELLOW); GLUCOSE, URINE (UA) AUTO NEGATIVE (NEGATIVE); KETONE, URINE AUTO NEGATIVE (NEGATIVE); LEUKOCYTE ESTERASE, URINE AUTO 1+ (NEGATIVE); NITRITE, URINE AUTO NEGATIVE (NEGATIVE); PROTEIN, URINE AUTO NEGATIVE (NEGATIVE); RBC, URINE AUTO 0 /HPF (0-3); SPECIFIC GRAVITY URINE AUTO 1.004 (1.002-1.035); SQUAMOUS EPITHELIAL CELL UR AU 0 /HPF (0-6); UROBILINOGEN, URINE AUTO 0.2 mg/dL (0.0-2.0); WBC, URINE AUTO 13 /HPF (0-3)
== END ==
LOC: M SMT 16:55
PROVIDERS: ATTEND Urology
DX: R30.0 Dysuria (principal)

== ENCOUNTER → 2021-07-11 | Outpatient (CLI) | payer MEDICARE | LOC: M PAIN 11:30 | PROVIDERS: ATTEND Nurse Practitioner Family | DX: M51.16 Intervertebral disc disorders with radiculopathy, lumbar region (principal); G89.29 Other chronic pain; E03.9 Hypothyroidism, unspecified; F17.210 Nicotine dependence, cigarettes, uncomplicated; Z86.59 Personal history of other mental and behavioral disorders; Z88.1 Allergy status to other antibiotic agents; Z88.5 Allergy status to narcotic agent; Z88.8 Allergy status to other drugs, medicaments and biological substances; Z79.82 Long term (current) use of aspirin; Z79.891 Long term (current) use of opiate analgesic; Z79.899 Other long term (current) drug therapy ==

== ENCOUNTER → 2021-07-24 | Outpatient (CLI) | payer MEDICARE ==
--- NOTE | 2021-07-24 14:01 | REPMRS ---
Patient History Family history of colorectal cancer in paternal grandmother. Covid vaccines both in pts right arm, pt unable to remember the dates. Patient states no breast complaints today. Patient has signed MRS History Sheet. Digital Woman Screen Mammo: July 24, 2021 - Exam #: [id number] Bilateral CC and MLO view(s) were taken. Technologist: RT Zhang Prior study comparison: June 05, 2020, bilateral digital woman screen mammo performed at [facility]. February 08, 2019, bilateral digital woman screen mammo performed at [facility]. FINDINGS: There are scattered fibroglandular densities. Screening. Digital screening (2D) mammography was performed bilaterally in the CC and MLO projections. Additionally, breast tomosynthesis (3D mammography) was performed bilaterally in the CC and MLO projections. Todays exam was compared to the prior exam/exams. By history, the patient has no complaints of a palpable breast abnormality or other significant breast complaints. The Volpara volumetric breast density category is B, there are scattered areas of fibroglandular densities. The breasts are unchanged in size and shape. There are no titus-soft tissue densities or spiculated masses. There is no internal architectural distortion. There are no suspicious titus-calcific clusters. Skin thickening or nipple retraction is not present. IMPRESSION: BI-RADS Category 2- Benign Findings. There is no evidence of malignant alteration of the breasts. Followup examination recommended in one year. The lifetime Tyrer-Cuzick score is 4.4% This mammogram was read with the assistance of [employer] Every[employer],an FDA approved computer aided detection system for mammography. Negative x-ray reports should not delay surgical consultation if a dominant or clinically suspicious mass is present. Not all breast cancers can be identified by mammography. Therefore, we recommend that you continue to perform regular breast self-examination and physical examination and then promptly contact your physician of any concerns or changes. Adenosis and dense breasts may obscure an underlying neoplasm. No significant changes when compared with prior studies. Assessment: BI-RADS/ACR category 2 mammogram. Benign Findings. Recommendation Routine screening mammogram of both breasts in 1 year. Electronically Signed By: Selvin Zarco MD 07/24/21 1400
== END ==
LOC: M WHC 12:48
PROVIDERS: ATTEND Student in an Organized Health Care Education/Training Program
DX: Z12.31 Encounter for screening mammogram for malignant neoplasm of breast (principal)

== ENCOUNTER → 2021-08-15 | Outpatient (CLI) | payer MEDICARE | LOC: M PAIN 14:30 | PROVIDERS: ATTEND Anesthesiology | DX: M71.9 Bursopathy, unspecified (principal); G89.29 Other chronic pain; E03.9 Hypothyroidism, unspecified; F17.210 Nicotine dependence, cigarettes, uncomplicated; Z86.59 Personal history of other mental and behavioral disorders; Z88.1 Allergy status to other antibiotic agents; Z88.5 Allergy status to narcotic agent; Z88.8 Allergy status to other drugs, medicaments and biological substances; Z79.82 Long term (current) use of aspirin; Z79.891 Long term (current) use of opiate analgesic; Z79.899 Other long term (current) drug therapy ==

== ENCOUNTER → 2021-08-19 | Outpatient (REF) | payer MEDICARE | LOC: M LAB REF 15:43 | PROVIDERS: ATTEND Physician Assistant | DX: R30.0 Dysuria (principal) ==

== ENCOUNTER → 2021-08-27 | Outpatient (REF) | payer MEDICARE ==
[2021-08-27 17:24] LABS: APPEARANCE, URINE CLOUDY (CLEAR); BACTERIA, URINE AUTO NEGATIVE (NEGATIVE); BILIRUBIN, URINE AUTO NEGATIVE (NEGATIVE); BLOOD, URINE BLOOD NEGATIVE (NEGATIVE); COLOR, URINE YELLOW (YELLOW); GLUCOSE, URINE (UA) AUTO NEGATIVE (NEGATIVE); KETONE, URINE AUTO NEGATIVE (NEGATIVE); LEUKOCYTE ESTERASE, URINE AUTO 3+ (NEGATIVE); MUCUS, URINE SMALL (NEGATIVE); NITRITE, URINE AUTO NEGATIVE (NEGATIVE); PROTEIN, URINE AUTO NEGATIVE (NEGATIVE); RBC, URINE AUTO 4 /HPF (0-3); RENAL EPITHELIAL CELLS 1 /HPF; SPECIFIC GRAVITY URINE AUTO 1.009 (1.002-1.035); SQUAMOUS EPITHELIAL CELL UR AU 4 /HPF (0-6); UROBILINOGEN, URINE AUTO 0.2 mg/dL (0.0-2.0); WBC, URINE AUTO 172 /HPF (0-3)
== END ==
LOC: M SMT 16:49
PROVIDERS: ATTEND Urology
DX: N30.00 Acute cystitis without hematuria (principal)

== ENCOUNTER → 2021-10-10 | Outpatient (REF) | payer MEDICARE ==
[2021-10-10 19:40] LABS: BASO # 0.1 10^3/uL (0.0-0.2); BASO % 0.8 % (0.0-1.0); EOS # 0.2 10^3/uL (0.0-0.5); EOS % 2.7 % (0.0-3.0); HEMATOCRIT 44.5 % (36.0-47.0); HEMOGLOBIN 14.2 g/dl (12.0-15.5); LYMPH # 2.2 10^3/uL (1.5-5.0); MEAN CORPUSCULAR HEMOGLOBIN 32.6 pg (27.0-33.0); MEAN CORPUSCULAR HGB CONC 31.9 g/dl (32.0-36.5); MEAN CORPUSCULAR VOLUME 102.3 fl (80.0-96.0); MONO # 0.6 10^3/uL (0.0-0.8); MONO % 8.1 % (2.0-8.0); NEUTROPHILS # 4.8 10^3/uL (1.5-8.5); NEUTROPHILS % 60.1 % (36.0-66.0); PLATELET COUNT, AUTOMATED 345 10^3/uL (150-450); RED BLOOD COUNT 4.35 10^6/uL (4.00-5.40); WHITE BLOOD COUNT 7.9 10^3/uL (4.0-10.0)
[2021-10-10 20:01] LABS: ALBUMIN 4.2 GM/DL (3.2-5.2); ALT/SGPT 26 U/L (12-78); BILIRUBIN,DIRECT 0.1 MG/DL (0.0-0.2); BILIRUBIN,TOTAL 0.3 MG/DL (0.2-1.0); BLOOD UREA NITROGEN 11 MG/DL (7-18); CALCIUM LEVEL 10.5 MG/DL (8.8-10.2); CARBON DIOXIDE LEVEL 34 MEQ/L (21-32); CHLORIDE LEVEL 102 MEQ/L (98-107); CREATININE FOR GFR 0.68 MG/DL (0.55-1.30); GLOMERULAR FILTRATION RATE > 60.0 (>39); GLUCOSE, FASTING 92 MG/DL (70-100); IRON (FE) 92 UG/DL (50-170); PHOSPHORUS LEVEL 3.8 MG/DL (2.5-4.9); POTASSIUM SERUM 4.1 MEQ/L (3.5-5.1); RHEUMATOID FACTOR QUANT < 10.0 IU/ML (<15.0); SODIUM LEVEL 140 MEQ/L (136-145); TOTAL PROTEIN 7.8 GM/DL (6.4-8.2)
[2021-10-10 20:02] LABS: ERYTHROCYTE SEDIMENTATION RATE 11 mm/hr (0-30)
[2021-10-10 20:07] LABS: TOTAL 25(OH) VITAMIN D 55.2 NG/ML (30.0-100.0); VITAMIN B12 LEVEL 467 PG/ML (247-911)
[2021-10-21 01:07] LABS: ANA (HEP2) Negative (.); CYCLIC CITRULLINATED PEPTIDE 3 units (0-19); HLA-B27 Negative (.)
== END ==
LOC: M SFHCRHEU 15:42
PROVIDERS: ATTEND Internal Medicine
DX: M25.40 Effusion, unspecified joint (principal); M79.10 Myalgia, unspecified site; L40.9 Psoriasis, unspecified
CPT/HCPCS: 80048; 80076; 81374; 82306; 82550; 82607; 83540; 83735; 84100; 85025; 85652; 86038; 86140; 86200; 86431; G0463

== ENCOUNTER → 2021-10-15 | Outpatient (CLI) | payer MEDICARE | LOC: M LABSMTC 10:43 | PROVIDERS: ATTEND Anesthesiology | DX: Z20.822 Contact with and (suspected) exposure to COVID-19 (principal) ==

== ENCOUNTER → 2021-10-20 | Outpatient (CLI) | payer MEDICARE ==
[~2021-10-20] MED LIST changes: +BUPIVACAINE HCL 0.25% 30ML VIAL As Ordered ONE; +ISOVUE-M 300 61% 15ML VIAL As Ordered ONE; +LIDOCAINE 1% SDV 30ML VIAL As Ordered ONE; +NORCO, ANEXSIA 5/325MG TABLET (HYDROcodone/ACETAMINOPHEN) As Ordered ONE; +TRIAMCINOLONE ACETONIDE SUSP 40 MG/ML VIAL (J3301) As Ordered ONE; +diazePAM 5MG TABLET As Ordered ONE
== END ==
LOC: M PAIN 13:45
PROVIDERS: ATTEND Anesthesiology
DX: M70.62 Trochanteric bursitis, left hip (principal); E03.9 Hypothyroidism, unspecified; F17.210 Nicotine dependence, cigarettes, uncomplicated; Z86.59 Personal history of other mental and behavioral disorders; Z88.1 Allergy status to other antibiotic agents; Z88.5 Allergy status to narcotic agent; Z88.8 Allergy status to other drugs, medicaments and biological substances; Z79.82 Long term (current) use of aspirin; Z79.891 Long term (current) use of opiate analgesic; Z79.899 Other long term (current) drug therapy
CPT/HCPCS: 20610; 77002; J3301; Q9967

== ENCOUNTER → 2021-10-28 | Outpatient (CLI) | payer MEDICARE ==
[~2021-10-28] MED LIST changes: -BUPIVACAINE HCL 0.25% 30ML VIAL As Ordered ONE; -ISOVUE-M 300 61% 15ML VIAL As Ordered ONE; -LIDOCAINE 1% SDV 30ML VIAL As Ordered ONE; -NORCO, ANEXSIA 5/325MG TABLET (HYDROcodone/ACETAMINOPHEN) As Ordered ONE; -TRIAMCINOLONE ACETONIDE SUSP 40 MG/ML VIAL (J3301) As Ordered ONE; -diazePAM 5MG TABLET As Ordered ONE
== END ==
LOC: M PAIN 15:30
PROVIDERS: ATTEND Anesthesiology
DX: M71.9 Bursopathy, unspecified (principal); G89.29 Other chronic pain; E03.9 Hypothyroidism, unspecified; Z86.59 Personal history of other mental and behavioral disorders; Z88.1 Allergy status to other antibiotic agents; Z88.5 Allergy status to narcotic agent; Z88.8 Allergy status to other drugs, medicaments and biological substances; Z79.82 Long term (current) use of aspirin; Z79.891 Long term (current) use of opiate analgesic; Z79.899 Other long term (current) drug therapy

== ENCOUNTER → 2021-10-29 | Outpatient (CLI) | payer MEDICARE | LOC: M LABSMTC 09:30 | PROVIDERS: ATTEND Anesthesiology | DX: Z01.818 Encounter for other preprocedural examination (principal); Z11.52 Encounter for screening for COVID-19 ==

== ENCOUNTER → 2021-10-31 | Outpatient (CLI) | payer MEDICARE | LOC: M PLAIMG 11:39 | PROVIDERS: ATTEND Internal Medicine | DX: M25.40 Effusion, unspecified joint (principal); M81.0 Age-related osteoporosis without current pathological fracture; M77.31 Calcaneal spur, right foot; M77.32 Calcaneal spur, left foot ==

== ENCOUNTER → 2021-10-31 | Outpatient (CLI) | payer MEDICARE | LOC: M WHC 10:56 | PROVIDERS: ATTEND Internal Medicine | DX: M81.0 Age-related osteoporosis without current pathological fracture (principal) ==

== ENCOUNTER → 2021-11-03 | Outpatient (CLI) | payer MEDICARE ==
[~2021-11-03] MED LIST changes: +BUPIVACAINE HCL 0.25% 30ML VIAL As Ordered ONE; +ISOVUE-M 300 61% 15ML VIAL As Ordered ONE; +LIDOCAINE 1% SDV 30ML VIAL As Ordered ONE; +NORCO, ANEXSIA 5/325MG TABLET (HYDROcodone/ACETAMINOPHEN) As Ordered ONE; +TRIAMCINOLONE ACETONIDE SUSP 40 MG/ML VIAL (J3301) As Ordered ONE; +diazePAM 5MG TABLET As Ordered ONE
== END ==
LOC: M PAIN 09:00
PROVIDERS: ATTEND Anesthesiology
DX: M71.9 Bursopathy, unspecified (principal); E03.9 Hypothyroidism, unspecified; F17.210 Nicotine dependence, cigarettes, uncomplicated; Z86.59 Personal history of other mental and behavioral disorders; Z88.1 Allergy status to other antibiotic agents; Z88.5 Allergy status to narcotic agent; Z88.8 Allergy status to other drugs, medicaments and biological substances; Z79.82 Long term (current) use of aspirin; Z79.891 Long term (current) use of opiate analgesic; Z79.899 Other long term (current) drug therapy
CPT/HCPCS: 20610; 77002; J3301; Q9967

== ENCOUNTER → 2021-12-08 | Outpatient (CLI) | payer MEDICARE ==
[~2021-12-08] MED LIST changes: -BUPIVACAINE HCL 0.25% 30ML VIAL As Ordered ONE; -ISOVUE-M 300 61% 15ML VIAL As Ordered ONE; -LIDOCAINE 1% SDV 30ML VIAL As Ordered ONE; -NORCO, ANEXSIA 5/325MG TABLET (HYDROcodone/ACETAMINOPHEN) As Ordered ONE; -TRIAMCINOLONE ACETONIDE SUSP 40 MG/ML VIAL (J3301) As Ordered ONE; -diazePAM 5MG TABLET As Ordered ONE
== END ==
LOC: M PAIN 10:45
PROVIDERS: ATTEND Nurse Practitioner Family
DX: M25.551 Pain in right hip (principal); G89.29 Other chronic pain; E03.9 Hypothyroidism, unspecified; F17.210 Nicotine dependence, cigarettes, uncomplicated; Z86.59 Personal history of other mental and behavioral disorders; Z88.1 Allergy status to other antibiotic agents; Z88.5 Allergy status to narcotic agent; Z88.8 Allergy status to other drugs, medicaments and biological substances; Z79.82 Long term (current) use of aspirin; Z79.891 Long term (current) use of opiate analgesic; Z79.899 Other long term (current) drug therapy

== ENCOUNTER → 2021-12-25 | Outpatient (REF) | payer MEDICARE ==
[2021-12-25 17:56] LABS: APPEARANCE, URINE HAZY (CLEAR); BACTERIA, URINE AUTO NEGATIVE (NEGATIVE); BILIRUBIN, URINE AUTO NEGATIVE (NEGATIVE); BLOOD, URINE BLOOD 2+ (NEGATIVE); COLOR, URINE YELLOW (YELLOW); GLUCOSE, URINE (UA) AUTO NEGATIVE (NEGATIVE); KETONE, URINE AUTO NEGATIVE (NEGATIVE); LEUKOCYTE ESTERASE, URINE AUTO 2+ (NEGATIVE); MUCUS, URINE SMALL (NEGATIVE); NITRITE, URINE AUTO NEGATIVE (NEGATIVE); PROTEIN, URINE AUTO NEGATIVE (NEGATIVE); RBC, URINE AUTO 3 /HPF (0-3); SPECIFIC GRAVITY URINE AUTO 1.006 (1.002-1.035); SQUAMOUS EPITHELIAL CELL UR AU 0 /HPF (0-6); UROBILINOGEN, URINE AUTO 0.2 mg/dL (0.0-2.0); WBC, URINE AUTO 41 /HPF (0-3)
== END ==
LOC: M SMT 16:34
PROVIDERS: ATTEND Nurse Practitioner Women's Health
DX: R33.9 Retention of urine, unspecified (principal)

== ENCOUNTER → 2022-01-22 | Outpatient (CLI) | payer MEDICARE | LOC: M PAIN 14:00 | PROVIDERS: ATTEND Anesthesiology | DX: M71.9 Bursopathy, unspecified (principal); M48.062 Spinal stenosis, lumbar region with neurogenic claudication; G89.29 Other chronic pain; E03.9 Hypothyroidism, unspecified; F17.210 Nicotine dependence, cigarettes, uncomplicated; Z86.59 Personal history of other mental and behavioral disorders; Z88.1 Allergy status to other antibiotic agents; Z88.5 Allergy status to narcotic agent; Z88.8 Allergy status to other drugs, medicaments and biological substances; Z79.82 Long term (current) use of aspirin; Z79.891 Long term (current) use of opiate analgesic; Z79.899 Other long term (current) drug therapy ==

== ENCOUNTER → 2022-04-17 | Outpatient (CLI) | payer MEDICARE | LOC: M PAIN 11:00 | PROVIDERS: ATTEND Anesthesiology | DX: M70.71 Other bursitis of hip, right hip (principal); M70.72 Other bursitis of hip, left hip; M48.062 Spinal stenosis, lumbar region with neurogenic claudication; I10 Essential (primary) hypertension; F41.9 Anxiety disorder, unspecified; F32.A Depression, unspecified; E03.9 Hypothyroidism, unspecified; E04.2 Nontoxic multinodular goiter; F10.11 Alcohol abuse, in remission; M81.0 Age-related osteoporosis without current pathological fracture; E78.5 Hyperlipidemia, unspecified; M19.90 Unspecified osteoarthritis, unspecified site; L40.9 Psoriasis, unspecified; H26.9 Unspecified cataract; F17.210 Nicotine dependence, cigarettes, uncomplicated; Z79.82 Long term (current) use of aspirin; Z79.899 Other long term (current) drug therapy; Z79.891 Long term (current) use of opiate analgesic; Z79.890 Hormone replacement therapy; Z88.5 Allergy status to narcotic agent; Z88.8 Allergy status to other drugs, medicaments and biological substances; Z88.0 Allergy status to penicillin ==

== ENCOUNTER → 2022-04-24 | Outpatient (CLI) | payer MEDICARE | LOC: M RAD 14:08 | PROVIDERS: ATTEND Nurse Practitioner Family | DX: E04.1 Nontoxic single thyroid nodule (principal) ==

== ENCOUNTER → 2022-05-13 | Outpatient (CLI) | payer MEDICARE ==
[2022-05-13 11:03] LABS: HEMATOCRIT 44.8 % (36.0-47.0); HEMOGLOBIN 14.4 g/dl (12.0-15.5); MEAN CORPUSCULAR HEMOGLOBIN 32.7 pg (27.0-33.0); MEAN CORPUSCULAR HGB CONC 32.1 g/dl (32.0-36.5); MEAN CORPUSCULAR VOLUME 101.6 fl (80.0-96.0); PLATELET COUNT, AUTOMATED 330 10^3/uL (150-450); RED BLOOD COUNT 4.41 10^6/uL (4.00-5.40); WHITE BLOOD COUNT 6.5 10^3/uL (4.0-10.0)
[2022-05-13 11:22] LABS: HEMOGLOBIN A1c 6.2 %
[2022-05-13 11:39] LABS: ALBUMIN 3.8 GM/DL (3.2-5.2); ALT/SGPT 24 U/L (12-78); BILIRUBIN,TOTAL 0.5 MG/DL (0.2-1.0); BLOOD UREA NITROGEN 8 MG/DL (7-18); CALCIUM LEVEL 10.2 MG/DL (8.8-10.2); CARBON DIOXIDE LEVEL 28 MEQ/L (21-32); CHLORIDE LEVEL 106 MEQ/L (98-107); CHOLESTEROL LEVEL 217 MG/DL (<200); CHOLESTEROL RISK RATIO 4.018 (<5); CREATININE FOR GFR 0.69 MG/DL (0.55-1.30); FREE T4 0.97 NG/DL (0.76-1.46); GLOMERULAR FILTRATION RATE > 60.0 (>39); GLUCOSE, FASTING 128 MG/DL (70-100); HDL CHOLESTEROL 54 MG/DL (>40); LDL CHOLESTEROL 136 MG/DL (<100); NON-HDL-C 163 MG/DL; POTASSIUM SERUM 4.3 MEQ/L (3.5-5.1); SODIUM LEVEL 139 MEQ/L (136-145); THYROID STIMULATING HORMONE 0.747 uIU/ML (0.358-3.740); TRIGLYCERIDES LEVEL 135 MG/DL (<150)
== END ==
LOC: M LAB 09:06
PROVIDERS: ATTEND Nurse Practitioner Family
DX: E03.9 Hypothyroidism, unspecified (principal); I10 Essential (primary) hypertension; E78.5 Hyperlipidemia, unspecified; Z79.899 Other long term (current) drug therapy

== ENCOUNTER → 2022-05-25 | Outpatient (REF) | payer MEDICARE | LOC: M LAB REF 16:10 | PROVIDERS: ATTEND Physician Assistant | DX: R68.83 Chills (without fever) (principal) ==

== ENCOUNTER → 2022-07-27 | Outpatient (REF) | payer MEDICARE ==
[~2022-07-27] MED LIST changes: +VENL75TA2 PO
== END ==
LOC: M SFHCCLAY 12:06
PROVIDERS: ATTEND Nurse Practitioner Family
DX: N89.8 Other specified noninflammatory disorders of vagina (principal)

== ENCOUNTER → 2022-08-07 | Outpatient (REF) | payer MEDICARE ==
[2022-08-07 17:54] LABS: BASO # 0.1 10^3/uL (0.0-0.2); BASO % 0.9 % (0.0-1.0); EOS # 0.2 10^3/uL (0.0-0.5); EOS % 2.7 % (0.0-3.0); HEMATOCRIT 43.9 % (36.0-47.0); HEMOGLOBIN 14.3 g/dl (12.0-15.5); LYMPH # 2.4 10^3/uL (1.5-5.0); LYMPH % 30.8 % (24.0-44.0); MEAN CORPUSCULAR HEMOGLOBIN 33.7 pg (27.0-33.0); MEAN CORPUSCULAR HGB CONC 32.6 g/dl (32.0-36.5); MEAN CORPUSCULAR VOLUME 103.5 fl (80.0-96.0); MONO # 0.7 10^3/uL (0.0-0.8); MONO % 8.7 % (2.0-8.0); NEUTROPHILS # 4.4 10^3/uL (1.5-8.5); NEUTROPHILS % 56.5 % (36.0-66.0); PLATELET COUNT, AUTOMATED 357 10^3/uL (150-450); RED BLOOD COUNT 4.24 10^6/uL (4.00-5.40); WHITE BLOOD COUNT 7.7 10^3/uL (4.0-10.0)
[2022-08-07 19:02] LABS: ALBUMIN 4.1 GM/DL (3.2-5.2); ALT/SGPT 30 U/L (12-78); AMYLASE 75 U/L (25-115); BILIRUBIN,TOTAL 0.4 MG/DL (0.2-1.0); BLOOD UREA NITROGEN 14 MG/DL (7-18); CALCIUM LEVEL 10.8 MG/DL (8.8-10.2); CARBON DIOXIDE LEVEL 30 MEQ/L (21-32); CHLORIDE LEVEL 102 MEQ/L (98-107); CREATININE FOR GFR 0.86 MG/DL (0.55-1.30); GLOMERULAR FILTRATION RATE > 60.0 (>39); GLUCOSE, FASTING 103 MG/DL (70-100); LIPASE 192 U/L (73-393); POTASSIUM SERUM 4.9 MEQ/L (3.5-5.1); SODIUM LEVEL 138 MEQ/L (136-145); TOTAL PROTEIN 7.5 GM/DL (6.4-8.2)
== END ==
LOC: M SFHCCLAY 14:09
PROVIDERS: ATTEND Physician Assistant
DX: R11.2 Nausea with vomiting, unspecified (principal)

== ENCOUNTER → 2022-08-18 | Outpatient (CLI) | payer MEDICARE, OTHER | LOC: M WHC 11:19 | PROVIDERS: ATTEND Nurse Practitioner Family | DX: Z12.31 Encounter for screening mammogram for malignant neoplasm of breast (principal) ==

== ENCOUNTER → 2022-08-27 | Outpatient (CLI) | payer MEDICARE ==
[~2022-08-27] MED LIST changes: +AMLO1TAB24 PO; +BAYE81TA10 PO; +DSS100CA PO; +ELIQ5TAB PO; +LEVO1TAB39 PO; +MELA1TAB9 PO; +MIRA1POW3 PO; +SERT25TA21 PO; +SERT50TA29 PO; +VENTAER INH; +VITA100093 PO; +VITMTA PO; +XARE15TA PO
== END ==
LOC: M CLY 11:21
PROVIDERS: ATTEND Nurse Practitioner Family
DX: M25.572 Pain in left ankle and joints of left foot (principal)

== ENCOUNTER 2022-09-08 09:58 | Observation (INO) | payer MEDICARE ==
[~2022-09-08] VITALS: Ht 157.5 cm; Wt 74.8 kg
[~2022-09-08 09:58] MED LIST changes: -AMLO1TAB24 PO; -BAYE81TA10 PO; -DSS100CA PO; -ELIQ5TAB PO; -LEVO1TAB39 PO; -MELA1TAB9 PO; -MIRA1POW3 PO; -SERT25TA21 PO; -SERT50TA29 PO; -VENTAER INH; -VITA100093 PO; -VITMTA PO; -XARE15TA PO
[2022-09-08] MEDS ORDERED: SERT25TA21 PO (10:15)
[2022-09-08] MEDS: COMBIVENT RESPIMAT 100-20MCG INHALER 4GM INH SCH ×3 (12:10→12:47)
[2022-09-08 12:45] LABS: BASO # 0.1 10^3/uL (0.0-0.2); BASO % 0.6 % (0.0-1.0); EOS # 0.2 10^3/uL (0.0-0.5); EOS % 1.9 % (0.0-3.0); HEMATOCRIT 40.2 % (36.0-47.0); HEMOGLOBIN 12.8 g/dl (12.0-15.5); LYMPH # 1.1 10^3/uL (1.5-5.0); LYMPH % 13.4 % (24.0-44.0); MEAN CORPUSCULAR HEMOGLOBIN 32.9 pg (27.0-33.0); MEAN CORPUSCULAR HGB CONC 31.8 g/dl (32.0-36.5); MEAN CORPUSCULAR VOLUME 103.3 fl (80.0-96.0); MONO # 0.4 10^3/uL (0.0-0.8); MONO % 5.4 % (2.0-8.0); NEUTROPHILS # 6.3 10^3/uL (1.5-8.5); NEUTROPHILS % 78.3 % (36.0-66.0); PLATELET COUNT, AUTOMATED 390 10^3/uL (150-450); RED BLOOD COUNT 3.89 10^6/uL (4.00-5.40); WHITE BLOOD COUNT 8.1 10^3/uL (4.0-10.0)
[2022-09-08 13:13] LABS: ABG BASE EXCESS 5.1 (-2.0-2.0); ABG HCO3 31.1 MEQ/L (22.0-26.0); ABG O2 SATURATION 90.2 % (95.0-99.0); ABG PARTIAL PRESSURE CO2 51.7 mmHg (35.0-45.0); ABG PARTIAL PRESSURE O2 55.3 mmHg (75.0-100.0); ABG STANDARD HCO3 28.9 MEQ/L (22.0-26.0); ABG TOTAL CO2 32.7 MEQ/L (23.0-31.0); ABG pH (ARTERIAL) 7.397 UNITS (7.350-7.450)
[2022-09-08 13:38] LABS: BLOOD UREA NITROGEN 10 MG/DL (9-23); CALCIUM LEVEL 9.7 MG/DL (8.3-10.6); CARBON DIOXIDE LEVEL 32 MMOL/L (20-31); CHLORIDE LEVEL 105 MMOL/L (98-107); CREATININE FOR GFR 0.62 MG/DL (0.55-1.30); GLOMERULAR FILTRATION RATE > 60.0 (>39); GLUCOSE, FASTING 119 MG/DL (74-106); POTASSIUM SERUM 4.5 MMOL/L (3.5-5.1); SODIUM LEVEL 141 MMOL/L (136-145)
[2022-09-08] MEDS: IPRATROPIUM 0.5MG/ALBUTEROL 2.5MG INH SOL UD 3ML (DUONEB) NEB SCH ×2 (14:18→14:34)
[2022-09-08] MEDS ORDERED: traMADol 50 MG TAB PO ONE (14:55)
[2022-09-08] MEDS ORDERED: ISOVUE-370 76% 100ML VIAL As Ordered ONE (16:43)
[2022-09-08] MEDS ORDERED: APIXABAN 5 MG TAB (ELIQUIS) PO ONE (18:15)
[2022-09-08] MEDS ORDERED: MELA1TAB9 PO (19:00)
[2022-09-08] MEDS ORDERED: VITA100093 PO (19:00)
[2022-09-08] MEDS ORDERED: AMLO1TAB24 PO (19:00)
[2022-09-08] MEDS ORDERED: VITMTA PO (19:00)
[2022-09-08] MEDS ORDERED: SERT50TA29 PO (19:00)
[2022-09-08] MEDS ORDERED: HOME MED LIST COMPLETE! XX SCH (19:05)
[2022-09-08] MEDS ORDERED: IPRATROPIUM 0.5MG/ALBUTEROL 2.5MG INH SOL UD 3ML (DUONEB) NEB PRN (19:40)
[2022-09-08] MEDS ORDERED: ACETAMINOPHEN TAB 650MG DOSE (2X325MG) PO PRN (19:40)
[2022-09-08] MEDS ORDERED: DOCUSATE SODIUM 100MG CAPSULE PO PRN (19:50)
[2022-09-08] MEDS ORDERED: LevoFLOXacin 750 MG TABLET PO SCH (21:00)
[2022-09-08] MEDS ORDERED: SYMBICORT 80/4.5MCG INHALER 6GM INH SCH (21:00)
[2022-09-08] MEDS: EZETIMIBE 10MG TABLET (ZETIA) PO SCH (21:33)
[2022-09-08] MEDS: clonazePAM 1 MG TAB PO SCH (21:33)
[2022-09-08] MEDS: lisinopriL 40MG TAB PO SCH (21:36)
[2022-09-08] MEDS: CARVedilol 12.5 MG TAB PO SCH (21:36)
[2022-09-08] MEDS ORDERED: guaiFENesin SYRUP 200MG 10ML UDC PO PRN (21:55)
[2022-09-08] MEDS: traMADol 50 MG TAB PO SCH (22:42)
[2022-09-08 23:04] VITALS: BP 141/67
[2022-09-09] VITALS (32 sets, daily range): BP systolic 91–124; BP diastolic 54–69; O2SAT 87–96
[2022-09-09] MEDS: RAMELTEON 8 MG TAB (ROZEREM) PO PRN ×2 (00:22→00:55)
[2022-09-09] MEDS: LEVOTHYROXINE 25MCG TABLET (0.025MG) PO SCH (05:31)
[2022-09-09 05:48] LABS: HEMATOCRIT 34.8 % (36.0-47.0); HEMOGLOBIN 11.5 g/dl (12.0-15.5); MEAN CORPUSCULAR HEMOGLOBIN 33.4 pg (27.0-33.0); MEAN CORPUSCULAR VOLUME 101.2 fl (80.0-96.0); PLATELET COUNT, AUTOMATED 377 10^3/uL (150-450); RED BLOOD COUNT 3.44 10^6/uL (4.00-5.40)
[2022-09-09 06:20] LABS: MAGNESIUM LEVEL 1.6 MG/DL (1.8-2.4)
[2022-09-09 06:22] LABS: ALBUMIN 3.1 G/DL (3.2-5.2); ALKALINE PHOSPHATASE 73 U/L (46-116); ALT/SGPT 18 U/L (7.0-40); AST/SGOT 22 U/L (<34); BILIRUBIN,TOTAL 0.2 MG/DL (0.3-1.2); BLOOD UREA NITROGEN 13 MG/DL (9-23); CALCIUM LEVEL 9.9 MG/DL (8.3-10.6); CARBON DIOXIDE LEVEL 29 MMOL/L (20-31); CHLORIDE LEVEL 103 MMOL/L (98-107); CREATININE FOR GFR 0.62 MG/DL (0.55-1.30); GLOMERULAR FILTRATION RATE > 60.0 (>39); GLUCOSE, FASTING 107 MG/DL (74-106); POTASSIUM SERUM 4.3 MMOL/L (3.5-5.1); SODIUM LEVEL 137 MMOL/L (136-145); TOTAL PROTEIN 6.3 G/DL (5.7-8.2)
[2022-09-09] MEDS: IPRATROPIUM 0.5MG/ALBUTEROL 2.5MG INH SOL UD 3ML (DUONEB) NEB SCH (07:31)
[2022-09-09] MEDS: SYMBICORT 80/4.5MCG INHALER 6GM INH SCH ×2 (07:32→19:37)
[2022-09-09] MEDS: clonazePAM 1 MG TAB PO SCH ×2 (09:09→20:23)
[2022-09-09] MEDS: SERTRALINE HCL 50 MG TAB PO SCH (09:09)
[2022-09-09] MEDS: SERTRALINE HCL 25 MG TABLET PO SCH (09:09)
[2022-09-09] MEDS: VITAMIN D 1,000 INTERNATIONAL UNITS TABLET PO SCH (09:10)
[2022-09-09] MEDS: APIXABAN 5 MG TAB (ELIQUIS) PO SCH ×2 (09:10→20:25)
[2022-09-09] MEDS: amLODIPine 5 MG TAB PO SCH (09:11)
[2022-09-09] MEDS: MULTIVITAMINS/MINERALS THERAP 1 TAB PO SCH (09:12)
[2022-09-09] MEDS: CARVedilol 12.5 MG TAB PO SCH ×2 (09:12→20:24)
[2022-09-09] MEDS: traMADol 50 MG TAB PO SCH ×3 (09:12→20:24)
[2022-09-09] MEDS: MIRALAX *UNIT DOSE* 17GM PACKET PO SCH (09:12)
[2022-09-09] MEDS: lisinopriL 40MG TAB PO SCH (20:25)
[2022-09-09] MEDS: EZETIMIBE 10MG TABLET (ZETIA) PO SCH (20:25)
[2022-09-09] MEDS ORDERED: LevoFLOXacin 500 MG TABLET PO SCH (21:00)
[2022-09-10] VITALS (10 sets, daily range): BP systolic 115–124; BP diastolic 56–69; O2SAT 90–95
[2022-09-10] MEDS: LEVOTHYROXINE 25MCG TABLET (0.025MG) PO SCH (05:37)
[2022-09-10] MEDS: SYMBICORT 80/4.5MCG INHALER 6GM INH SCH (07:07)
[2022-09-10] MEDS ORDERED: ELIQ5TAB PO (07:20)
[2022-09-10] MEDS ORDERED: LEVO1TAB39 PO (07:20)
[2022-09-10] MEDS ORDERED: MIRA1POW3 PO (07:20)
[2022-09-10 08:29] LABS: HEMATOCRIT 35.2 % (36.0-47.0); HEMOGLOBIN 11.5 g/dl (12.0-15.5); MEAN CORPUSCULAR HEMOGLOBIN 33.4 pg (27.0-33.0); MEAN CORPUSCULAR HGB CONC 32.7 g/dl (32.0-36.5); MEAN CORPUSCULAR VOLUME 102.3 fl (80.0-96.0); PLATELET COUNT, AUTOMATED 364 10^3/uL (150-450); RED BLOOD COUNT 3.44 10^6/uL (4.00-5.40)
[2022-09-10] MEDS: clonazePAM 1 MG TAB PO SCH (08:29)
[2022-09-10] MEDS: APIXABAN 5 MG TAB (ELIQUIS) PO SCH (08:29)
[2022-09-10] MEDS: CARVedilol 12.5 MG TAB PO SCH (08:30)
[2022-09-10] MEDS: traMADol 50 MG TAB PO SCH (08:30)
[2022-09-10] MEDS: SERTRALINE HCL 25 MG TABLET PO SCH (08:31)
[2022-09-10] MEDS: MULTIVITAMINS/MINERALS THERAP 1 TAB PO SCH (08:31)
[2022-09-10] MEDS: SERTRALINE HCL 50 MG TAB PO SCH (08:31)
[2022-09-10] MEDS: amLODIPine 5 MG TAB PO SCH (08:31)
[2022-09-10] MEDS: VITAMIN D 1,000 INTERNATIONAL UNITS TABLET PO SCH (08:31)
[2022-09-10] MEDS: MIRALAX *UNIT DOSE* 17GM PACKET PO SCH (08:32)
[2022-09-10 08:59] LABS: MAGNESIUM LEVEL 1.6 MG/DL (1.8-2.4)
[2022-09-10 09:16] LABS: ALBUMIN 2.8 G/DL (3.2-5.2); ALKALINE PHOSPHATASE 68 U/L (46-116); ALT/SGPT 19 U/L (7.0-40); AST/SGOT 26 U/L (<34); BILIRUBIN,TOTAL 0.2 MG/DL (0.3-1.2); BLOOD UREA NITROGEN 16 MG/DL (9-23); CALCIUM LEVEL 9.5 MG/DL (8.3-10.6); CARBON DIOXIDE LEVEL 26 MMOL/L (20-31); CHLORIDE LEVEL 104 MMOL/L (98-107); CREATININE FOR GFR 0.72 MG/DL (0.55-1.30); GLOMERULAR FILTRATION RATE > 60.0 (>39); GLUCOSE, FASTING 150 MG/DL (74-106); POTASSIUM SERUM 3.7 MMOL/L (3.5-5.1); SODIUM LEVEL 140 MMOL/L (136-145); TOTAL PROTEIN 5.9 G/DL (5.7-8.2)
[2022-09-10] MEDS ORDERED: VENTAER INH (11:52)
[2022-09-10] MEDS ORDERED: XARE15TA PO (12:20)
[2022-09-11 04:07] LABS: ANTI THROMBIN 3 ANTIGEN IMMUNO 89 % (72-124); ANTI THROMBIN 3 FUNCT ACTIVITY 125 % (75-135); PROTEIN C FUNCTIONAL ACTIVITY 151 % (73-180); PROTEIN S FUNCTIONAL ACTIVITY 121 % (63-140)
[2022-09-11 17:10] LABS: BODY FLUID CULTURE Not indicated. (.); LEGIONELLA ANTIGEN URINE Negative (Negative); ORGANISM ID Not indicated. (.); SPECIMEN SOURCE Urine (.); URINE STREP PNEUMONIAE ANTIGEN Negative (Negative)
== END 2022-09-10 14:00 | disposition home or self-care (01) ==
LOC: M ED 09:58 → EDBD 09:58 → INTOOBSV 09:59 → M ED INP 09:59 → UNDOADMIN 19:37 → M ED INP 19:37 → ENRESERV 21:29 → M ED INP 22:51 → M PCU 22:51
PROVIDERS: ADMIT Internal Medicine; ATTEND Internal Medicine
DX: I26.99 Other pulmonary embolism without acute cor pulmonale (principal); I10 Essential (primary) hypertension; E83.42 Hypomagnesemia; E78.5 Hyperlipidemia, unspecified; F17.218 Nicotine dependence, cigarettes, with other nicotine-induced disorders; F41.9 Anxiety disorder, unspecified; K21.9 Gastro-esophageal reflux disease without esophagitis; L40.9 Psoriasis, unspecified; Z79.01 Long term (current) use of anticoagulants; Z79.899 Other long term (current) drug therapy; Z88.0 Allergy status to penicillin; Z88.8 Allergy status to other drugs, medicaments and biological substances
CPT/HCPCS: 36415; 36600; 71045; 71275; 74018; 80048; 80053; 81000; 81015; 81241; 82803; 83735; 83880; 84145; 84484; 85025; 85027; 85300; 85301; 85303; 85305; 87040; 87086; 87428; 87449; 87486; 87581; 87633; 87798; 87899; 93005; 93041; 93970; 94640; 94760; 96374; 97116; 97161; 99285; G0378; J1100; Q9967

== ENCOUNTER → 2022-10-07 | Outpatient (CLI) | payer MEDICARE ==
[~2022-10-07] MED LIST changes: +AMLO1TAB24 PO; +BAYE81TA10 PO; +DSS100CA PO; +ELIQ5TAB PO; +LEVO1TAB39 PO; +MELA1TAB9 PO; +MIRA1POW3 PO; +SERT25TA21 PO; +SERT50TA29 PO; +VENTAER INH; +VITA100093 PO; +VITMTA PO; +XARE15TA PO
== END ==
LOC: M PAIN 10:00
PROVIDERS: ATTEND Anesthesiology
DX: M70.62 Trochanteric bursitis, left hip (principal); M48.061 Spinal stenosis, lumbar region without neurogenic claudication; G89.29 Other chronic pain; I10 Essential (primary) hypertension; E03.9 Hypothyroidism, unspecified; Z86.59 Personal history of other mental and behavioral disorders; Z87.891 Personal history of nicotine dependence; Z88.1 Allergy status to other antibiotic agents; Z88.5 Allergy status to narcotic agent; Z88.6 Allergy status to analgesic agent; Z88.8 Allergy status to other drugs, medicaments and biological substances; Z79.01 Long term (current) use of anticoagulants; Z79.82 Long term (current) use of aspirin; Z79.890 Hormone replacement therapy; Z79.891 Long term (current) use of opiate analgesic; Z79.899 Other long term (current) drug therapy

== ENCOUNTER → 2022-10-14 | Outpatient (REF) | payer MEDICARE ==
[2022-10-14 17:35] LABS: HEMATOCRIT 42.4 % (36.0-47.0); HEMOGLOBIN 13.5 g/dl (12.0-15.5); MEAN CORPUSCULAR HEMOGLOBIN 32.8 pg (27.0-33.0); MEAN CORPUSCULAR HGB CONC 31.8 g/dl (32.0-36.5); MEAN CORPUSCULAR VOLUME 102.9 fl (80.0-96.0); PLATELET COUNT, AUTOMATED 402 10^3/uL (150-450); RED BLOOD COUNT 4.12 10^6/uL (4.00-5.40); WHITE BLOOD COUNT 7.8 10^3/uL (4.0-10.0)
[2022-10-14 17:55] LABS: ALBUMIN 4.1 G/DL (3.2-5.2); ALKALINE PHOSPHATASE 85 U/L (46-116); ALT/SGPT 19 U/L (7.0-40); AST/SGOT 27 U/L (<34); BILIRUBIN,TOTAL 0.2 MG/DL (0.3-1.2); BLOOD UREA NITROGEN 9 MG/DL (9-23); CALCIUM LEVEL 10.1 MG/DL (8.3-10.6); CARBON DIOXIDE LEVEL 33 MMOL/L (20-31); CHLORIDE LEVEL 100 MMOL/L (98-107); CHOLESTEROL LEVEL 219 MG/DL (<200); CHOLESTEROL RISK RATIO 4.07 (<5); CREATININE FOR GFR 0.72 MG/DL (0.55-1.30); GLOMERULAR FILTRATION RATE > 60.0 (>39); GLUCOSE, FASTING 86 MG/DL (74-106); HDL CHOLESTEROL 53.8 MG/DL (>40); LDL CHOLESTEROL 141.8 MG/DL (<100); NON-HDL-C 165 MG/DL; POTASSIUM SERUM 4.2 MMOL/L (3.5-5.1); SODIUM LEVEL 138 MMOL/L (136-145); TOTAL PROTEIN 7.4 G/DL (5.7-8.2); TRIGLYCERIDES LEVEL 117 MG/DL (<150)
[2022-10-14 17:57] LABS: FREE T4 1.08 NG/DL (0.89-1.76); THYROID STIMULATING HORMONE 2.302 uIU/ML (0.55-4.78)
[2022-10-14 17:58] LABS: TOTAL 25(OH) VITAMIN D 44.9 NG/ML (20.0-100.0)
== END ==
LOC: M SFHCCLAY 14:09
PROVIDERS: ATTEND Nurse Practitioner Family
DX: E78.5 Hyperlipidemia, unspecified (principal); I10 Essential (primary) hypertension; E03.9 Hypothyroidism, unspecified; I26.99 Other pulmonary embolism without acute cor pulmonale; E55.9 Vitamin D deficiency, unspecified; Z79.899 Other long term (current) drug therapy

== ENCOUNTER → 2022-11-11 | Outpatient (CLI) | payer MEDICARE ==
[~2022-11-11] MED LIST changes: +XARE20TA PO
== END ==
LOC: M CLY 11:40
PROVIDERS: ATTEND Nurse Practitioner Family
DX: R06.2 Wheezing (principal)

== ENCOUNTER → 2022-11-12 | Outpatient (CLI) | payer MEDICARE ==
[~2022-11-12] MED LIST changes: +ISOVUE-370 76% 100ML VIAL As Ordered ONE
== END ==
LOC: M RAD 12:43
PROVIDERS: ATTEND Nurse Practitioner Family
DX: R06.02 Shortness of breath (principal)
CPT/HCPCS: 71260; Q9967

== ENCOUNTER → 2022-11-26 | Outpatient (CLI) | payer MEDICARE ==
[~2022-11-26] MED LIST changes: -ISOVUE-370 76% 100ML VIAL As Ordered ONE
== END ==
LOC: M SOG 08:19
PROVIDERS: ATTEND Orthopaedic Surgery
DX: M70.62 Trochanteric bursitis, left hip (principal)

== ENCOUNTER → 2022-12-11 | Outpatient (CLI) | payer MEDICARE | LOC: M SOG 11:31 | PROVIDERS: ATTEND Orthopaedic Surgery | DX: M54.50 Low back pain, unspecified (principal) ==

== ENCOUNTER → 2023-01-02 | Outpatient (CLI) | payer MEDICARE | LOC: M RAD 12:55 | PROVIDERS: ATTEND Orthopaedic Surgery | DX: M47.816 Spondylosis without myelopathy or radiculopathy, lumbar region (principal) ==

== ENCOUNTER → 2023-01-08 | Outpatient (REF) | payer MEDICARE | LOC: M SFHCCLAY 16:40 | PROVIDERS: ATTEND Nurse Practitioner Family | DX: R09.89 Other specified symptoms and signs involving the circulatory and respiratory systems (principal) ==

== ENCOUNTER → 2023-01-08 | Outpatient (CLI) | payer MEDICARE | LOC: M CLY 11:54 | PROVIDERS: ATTEND Nurse Practitioner Family | DX: R91.8 Other nonspecific abnormal finding of lung field (principal); R06.02 Shortness of breath; R09.89 Other specified symptoms and signs involving the circulatory and respiratory systems ==

== ENCOUNTER → 2023-01-14 | Outpatient (CLI) | payer MEDICARE | LOC: M PAIN 16:00 | PROVIDERS: ATTEND Anesthesiology | DX: M51.16 Intervertebral disc disorders with radiculopathy, lumbar region (principal); G89.29 Other chronic pain; I10 Essential (primary) hypertension; E03.9 Hypothyroidism, unspecified; Z86.59 Personal history of other mental and behavioral disorders; Z87.891 Personal history of nicotine dependence; Z88.1 Allergy status to other antibiotic agents; Z88.5 Allergy status to narcotic agent; Z88.6 Allergy status to analgesic agent; Z88.8 Allergy status to other drugs, medicaments and biological substances; Z79.01 Long term (current) use of anticoagulants; Z79.82 Long term (current) use of aspirin; Z79.890 Hormone replacement therapy ==

== ENCOUNTER → 2023-03-03 | Outpatient (CLI) | payer MEDICARE | LOC: M PAIN 16:30 | PROVIDERS: ATTEND Anesthesiology | DX: M51.16 Intervertebral disc disorders with radiculopathy, lumbar region (principal); M48.062 Spinal stenosis, lumbar region with neurogenic claudication; G89.29 Other chronic pain; I10 Essential (primary) hypertension; E03.9 Hypothyroidism, unspecified; Z86.59 Personal history of other mental and behavioral disorders; Z87.891 Personal history of nicotine dependence; Z88.1 Allergy status to other antibiotic agents; Z88.5 Allergy status to narcotic agent; Z88.6 Allergy status to analgesic agent; Z88.8 Allergy status to other drugs, medicaments and biological substances; Z79.01 Long term (current) use of anticoagulants; Z79.890 Hormone replacement therapy; Z79.899 Other long term (current) drug therapy ==

== ENCOUNTER → 2023-03-26 | Outpatient (REF) | payer MEDICARE ==
[2023-03-26 17:44] LABS: APPEARANCE, URINE CLEAR (CLEAR); BACTERIA, URINE AUTO NEGATIVE (NEGATIVE); BILIRUBIN, URINE AUTO NEGATIVE (NEGATIVE); BLOOD, URINE BLOOD NEGATIVE (NEGATIVE); COLOR, URINE YELLOW (YELLOW); GLUCOSE, URINE (UA) AUTO NEGATIVE (NEGATIVE); KETONE, URINE AUTO NEGATIVE (NEGATIVE); LEUKOCYTE ESTERASE, URINE AUTO NEGATIVE (NEGATIVE); NITRITE, URINE AUTO NEGATIVE (NEGATIVE); PROTEIN, URINE AUTO NEGATIVE (NEGATIVE); RBC, URINE AUTO 0 /HPF (0-3); SQUAMOUS EPITHELIAL CELL UR AU 0 /HPF (0-6); UROBILINOGEN, URINE AUTO 0.2 mg/dL (0.0-2.0); WBC, URINE AUTO 1 /HPF (0-3)
== END ==
LOC: M SMT 17:05
PROVIDERS: ATTEND Urology
DX: N39.41 Urge incontinence (principal)

== ENCOUNTER → 2023-03-31 | Outpatient (CLI) | payer MEDICARE ==
[~2023-03-31] MED LIST changes: +ISOVUE-370 76% 100ML VIAL As Ordered ONE
== END ==
LOC: M RAD 15:40
PROVIDERS: ATTEND Nurse Practitioner Family
DX: R91.8 Other nonspecific abnormal finding of lung field (principal); R06.02 Shortness of breath

== ENCOUNTER → 2023-03-31 | Outpatient (REF) | payer MEDICARE ==
[~2023-03-31] MED LIST changes: -ISOVUE-370 76% 100ML VIAL As Ordered ONE
== END ==
LOC: M SFHCCLAY 14:15
PROVIDERS: ATTEND Nurse Practitioner Family
DX: R06.02 Shortness of breath (principal)

== ENCOUNTER → 2023-03-31 | Outpatient (CLI) | payer MEDICARE ==
[2023-03-31 16:05] LABS: BLOOD UREA NITROGEN 11 MG/DL (9-23); CALCIUM LEVEL 10.5 MG/DL (8.3-10.6); CARBON DIOXIDE LEVEL 33 MMOL/L (20-31); CHLORIDE LEVEL 102 MMOL/L (98-107); CREATININE FOR GFR 0.67 MG/DL (0.55-1.30); GLOMERULAR FILTRATION RATE > 60.0 (>39); GLUCOSE, FASTING 72 MG/DL (74-106); POTASSIUM SERUM 4.3 MMOL/L (3.5-5.1); SODIUM LEVEL 139 MMOL/L (136-145)
== END ==
LOC: M LAB 14:44
PROVIDERS: ATTEND Nurse Practitioner Family
DX: R06.02 Shortness of breath (principal)

== ENCOUNTER → 2023-04-21 | Outpatient (REF) | payer MEDICARE ==
[~2023-04-21] MED LIST changes: +SERT-141 PO; +SERT25TA85 PO
[2023-04-21 18:17] LABS: FREE T4 1.07 NG/DL (0.89-1.76); THYROID STIMULATING HORMONE 2.09 uIU/ML (0.55-4.78)
== END ==
LOC: M SFHCCLAY 13:43
PROVIDERS: ATTEND Nurse Practitioner Family
DX: E03.9 Hypothyroidism, unspecified (principal)

== ENCOUNTER → 2023-04-28 | Outpatient (CLI) | payer MEDICARE | LOC: M PAIN 10:30 | PROVIDERS: ATTEND Anesthesiology | DX: M48.062 Spinal stenosis, lumbar region with neurogenic claudication (principal); M51.16 Intervertebral disc disorders with radiculopathy, lumbar region; I10 Essential (primary) hypertension; E03.9 Hypothyroidism, unspecified; J44.9 Chronic obstructive pulmonary disease, unspecified; Z86.59 Personal history of other mental and behavioral disorders; Z87.891 Personal history of nicotine dependence; Z88.1 Allergy status to other antibiotic agents; Z88.5 Allergy status to narcotic agent; Z88.6 Allergy status to analgesic agent; Z88.8 Allergy status to other drugs, medicaments and biological substances; Z79.01 Long term (current) use of anticoagulants; Z79.890 Hormone replacement therapy; Z79.899 Other long term (current) drug therapy ==

== ENCOUNTER → 2023-05-14 | Outpatient (CLI) | payer MEDICARE | LOC: M RAD 13:28 | PROVIDERS: ATTEND Nurse Practitioner Family | DX: E04.1 Nontoxic single thyroid nodule (principal) ==

== ENCOUNTER → 2023-05-19 | Outpatient (CLI) | payer MEDICARE | LOC: M SOG 07:52 | PROVIDERS: ATTEND Orthopaedic Surgery | DX: M25.511 Pain in right shoulder (principal); M25.512 Pain in left shoulder ==

== ENCOUNTER → 2023-07-06 | Outpatient (CLI) | payer MEDICARE ==
[~2023-07-06] MED LIST changes: +EZET10TA58 PO; +ISOVUE-M 300 61% 15ML VIAL As Ordered ONE; +LIDOCAINE 1% SDV 30ML VIAL As Ordered ONE; +NORCO, ANEXSIA 5/325MG TABLET (HYDROcodone/ACETAMINOPHEN) As Ordered ONE; -ZETI10TA16 PO; +diazePAM 5MG TABLET As Ordered ONE; +methylPREDNISolone SUSP 40MG/ML 1ML VIAL (DEPO MEDROL) As Ordered ONE
== END ==
LOC: M PAIN 09:30
PROVIDERS: ATTEND Anesthesiology
DX: M51.16 Intervertebral disc disorders with radiculopathy, lumbar region (principal); G89.29 Other chronic pain; Z80.8 Family history of malignant neoplasm of other organs or systems; Z87.891 Personal history of nicotine dependence; Z88.1 Allergy status to other antibiotic agents; Z88.5 Allergy status to narcotic agent; Z88.6 Allergy status to analgesic agent; Z88.8 Allergy status to other drugs, medicaments and biological substances; Z79.01 Long term (current) use of anticoagulants; Z79.899 Other long term (current) drug therapy
CPT/HCPCS: 62323; J1030; Q9967

== ENCOUNTER → 2023-08-30 | Outpatient (CLI) | payer MEDICARE ==
[~2023-08-30] MED LIST changes: -ISOVUE-M 300 61% 15ML VIAL As Ordered ONE; -LIDOCAINE 1% SDV 30ML VIAL As Ordered ONE; -NORCO, ANEXSIA 5/325MG TABLET (HYDROcodone/ACETAMINOPHEN) As Ordered ONE; -diazePAM 5MG TABLET As Ordered ONE; -methylPREDNISolone SUSP 40MG/ML 1ML VIAL (DEPO MEDROL) As Ordered ONE
== END ==
LOC: M SLEEP HO 10:56
PROVIDERS: ATTEND Nurse Practitioner Family
DX: R06.83 Snoring (principal)

== ENCOUNTER → 2023-09-15 | Outpatient (CLI) | payer MEDICARE | LOC: M PAIN 16:00 | PROVIDERS: ATTEND Anesthesiology | DX: M48.062 Spinal stenosis, lumbar region with neurogenic claudication (principal); G89.29 Other chronic pain; Z80.8 Family history of malignant neoplasm of other organs or systems; Z87.891 Personal history of nicotine dependence; Z88.1 Allergy status to other antibiotic agents; Z88.5 Allergy status to narcotic agent; Z88.6 Allergy status to analgesic agent; Z88.8 Allergy status to other drugs, medicaments and biological substances; Z79.01 Long term (current) use of anticoagulants; Z79.899 Other long term (current) drug therapy; Z99.81 Dependence on supplemental oxygen ==

== ENCOUNTER 2023-10-01 16:58 | Emergency (ER) | payer MEDICARE ==
[~2023-10-01] VITALS: Ht 157.5 cm; Wt 72.7 kg
[2023-10-01] MEDS ORDERED: methylPREDNISolone 125MG 2ML VIAL IV ONE (17:20)
[2023-10-01] MEDS ORDERED: IPRATROPIUM 0.5MG/ALBUTEROL 2.5MG INH SOL UD 3ML (DUONEB) NEB PRN (17:20)
[2023-10-01 18:16] LABS: VENOUS BASE EXCESS -0.7 (-2.0-2.0); VENOUS HCO3 24.9 MMOL/L (23.0-27.0); VENOUS PARTIAL PRESSURE CO2 44.8 mmHg (38.0-50.0); VENOUS PARTIAL PRESSURE O2 39.1 mmHg (30.0-50.0); VENOUS PH 7.363 UNITS (7.330-7.430); VENOUS STANDARD HCO3 23.4 MMOL/L; VENOUS TOTAL CO2 26.3 MMOL/L (24.0-28.0)
[2023-10-01 18:26] LABS: BASO % 0.2 % (0.0-1.0); EOS % 0.1 % (0.0-3.0); HEMATOCRIT 36.1 % (36.0-47.0); HEMOGLOBIN 11.9 g/dl (12.0-15.5); LYMPH # 0.5 10^3/uL (1.5-5.0); LYMPH % 3.3 % (24.0-44.0); MEAN CORPUSCULAR HEMOGLOBIN 33.1 pg (27.0-33.0); MEAN CORPUSCULAR VOLUME 100.3 fl (80.0-96.0); MONO # 0.7 10^3/uL (0.0-0.8); MONO % 4.6 % (2.0-8.0); NEUTROPHILS # 13.6 10^3/uL (1.5-8.5); NEUTROPHILS % 91.3 % (36.0-66.0); PLATELET COUNT, AUTOMATED 322 10^3/uL (150-450); WHITE BLOOD COUNT 14.9 10^3/uL (4.0-10.0)
[2023-10-01 18:57] LABS: THYROID STIMULATING HORMONE 0.487 uIU/ML (0.55-4.78)
[2023-10-01 19:08] LABS: ALBUMIN 3.1 G/DL (3.2-5.2); ALKALINE PHOSPHATASE 85 U/L (46-116); ALT/SGPT 38 U/L (7.0-40); AST/SGOT 58 U/L (<34); BILIRUBIN,DIRECT 0.1 MG/DL (<0.4); BILIRUBIN,TOTAL 0.4 MG/DL (0.3-1.2); BLOOD UREA NITROGEN 24 MG/DL (9-23); CALCIUM LEVEL 9.3 MG/DL (8.3-10.6); CARBON DIOXIDE LEVEL 26 MMOL/L (20-31); CHLORIDE LEVEL 104 MMOL/L (98-107); CREATININE FOR GFR 0.71 MG/DL (0.55-1.30); GLOMERULAR FILTRATION RATE > 60.0 (>39); GLUCOSE, FASTING 138 MG/DL (74-106); POTASSIUM SERUM 5.5 MMOL/L (3.5-5.1); SODIUM LEVEL 136 MMOL/L (136-145); TOTAL PROTEIN 6.4 G/DL (5.7-8.2)
[2023-10-01 20:32] VITALS: O2SAT 94
[2023-10-01 20:33] LABS: PROCALCITONIN 0.07 ng/ml
[2023-10-01 21:52] VITALS: BP 127/68; TEMP 98; O2SAT 94
== END 2023-10-01 22:01 | disposition home or self-care (01) ==
LOC: EDBD 16:58 → M ED 16:58
DX: J18.9 Pneumonia, unspecified organism (principal); R06.00 Dyspnea, unspecified; G89.4 Chronic pain syndrome; I10 Essential (primary) hypertension; E78.5 Hyperlipidemia, unspecified; E03.9 Hypothyroidism, unspecified; Z87.891 Personal history of nicotine dependence; Z88.1 Allergy status to other antibiotic agents; Z88.8 Allergy status to other drugs, medicaments and biological substances; Z79.82 Long term (current) use of aspirin; Z79.811 Long term (current) use of aromatase inhibitors; Z79.810 Long term (current) use of selective estrogen receptor modulators (SERMs); Z79.899 Other long term (current) drug therapy
CPT/HCPCS: 71045; 80048; 80076; 82803; 83605; 83880; 84145; 84443; 85025; 87040; 87486; 87581; 87633; 87798; 93005; 93041; 94760; 96374; 99285; J2930

== ENCOUNTER 2023-10-09 13:17 | Inpatient (IN) | payer MEDICARE ==
[~2023-10-09] VITALS: Ht 157.5 cm; Wt 77.8 kg
[2023-10-09 14:13] LABS: BASO # 0.1 10^3/uL (0.0-0.2); BASO % 0.6 % (0.0-1.0); EOS # 0.1 10^3/uL (0.0-0.5); EOS % 1.2 % (0.0-3.0); HEMATOCRIT 40.7 % (36.0-47.0); HEMOGLOBIN 13.8 g/dl (12.0-15.5); LYMPH # 1.7 10^3/uL (1.5-5.0); LYMPH % 16.7 % (24.0-44.0); MEAN CORPUSCULAR HEMOGLOBIN 33.5 pg (27.0-33.0); MEAN CORPUSCULAR HGB CONC 33.9 g/dl (32.0-36.5); MEAN CORPUSCULAR VOLUME 98.8 fl (80.0-96.0); MONO # 0.5 10^3/uL (0.0-0.8); MONO % 4.9 % (2.0-8.0); NEUTROPHILS # 7.7 10^3/uL (1.5-8.5); PLATELET COUNT, AUTOMATED 443 10^3/uL (150-450); RED BLOOD COUNT 4.12 10^6/uL (4.00-5.40); WHITE BLOOD COUNT 10.1 10^3/uL (4.0-10.0)
[2023-10-09 14:37] LABS: CK-MB VALUE MASS 1.2 NG/ML (<3.6)
[2023-10-09 14:40] LABS: ALBUMIN 3.3 G/DL (3.2-5.2); ALKALINE PHOSPHATASE 88 U/L (46-116); ALT/SGPT 28 U/L (7.0-40); AST/SGOT 18 U/L (<34); BILIRUBIN,DIRECT 0.1 MG/DL (<0.4); BILIRUBIN,TOTAL 0.3 MG/DL (0.3-1.2); BLOOD UREA NITROGEN 16 MG/DL (9-23); CALCIUM LEVEL 9.8 MG/DL (8.3-10.6); CARBON DIOXIDE LEVEL 30 MMOL/L (20-31); CHLORIDE LEVEL 108 MMOL/L (98-107); CPK CREATINE PHOSPHOKINASE 47 U/L (34-145); CREATININE FOR GFR 0.63 MG/DL (0.55-1.30); GLOMERULAR FILTRATION RATE > 60.0 (>39); GLUCOSE, FASTING 118 MG/DL (74-106); MB/CK RELATIVE INDEX 2.55 (< OR =4); SODIUM LEVEL 142 MMOL/L (136-145); TOTAL PROTEIN 6.5 G/DL (5.7-8.2)
[2023-10-09 14:42] LABS: THYROID STIMULATING HORMONE 0.472 uIU/ML (0.55-4.78); THYROXINE (T4) 10.3 UG/DL (4.5-10.9)
[2023-10-09 14:46] LABS: PROCALCITONIN <0.04 ng/ml
[2023-10-09] MEDS ORDERED: IPRATROPIUM 0.5MG/ALBUTEROL 2.5MG INH SOL UD 3ML (DUONEB) NEB ONE (15:05)
[2023-10-09] MEDS ORDERED: MED REC IN PROGRESS XX SCH (15:20)
[2023-10-09] MEDS ORDERED: CLON0.5T2 PO (15:31)
[2023-10-09] MEDS ORDERED: IPRATROPIUM 0.5MG/ALBUTEROL 2.5MG INH SOL UD 3ML (DUONEB) NEB PRN (15:45)
[2023-10-09] MEDS ORDERED: MED REC CURRENTLY UNOBTAINABLE XX SCH (15:50)
[2023-10-09 16:32] LABS: CK-MB VALUE MASS < 1.0 NG/ML (<3.6)
[2023-10-09 16:34] LABS: CPK CREATINE PHOSPHOKINASE 41 U/L (34-145); MB/CK RELATIVE INDEX 2.43 (< OR =4)
[2023-10-09] MEDS: AZITHROMYCIN 250MG TABLET PO SCH (17:04)
[2023-10-09] MEDS: cefTRIAXone SOD 2 GM in D5W MINI-BAG PLUS 50 ML IV SCH (17:04)
[2023-10-09] MEDS ORDERED: ALBU8.5H PO (19:00)
[2023-10-09] MEDS ORDERED: TREL1AER PO (19:00)
[2023-10-09] MEDS ORDERED: HOME MED LIST COMPLETE! XX SCH (19:05)
[2023-10-09] MEDS: IPRATROPIUM 0.5MG/ALBUTEROL 2.5MG INH SOL UD 3ML (DUONEB) NEB SCH (19:32)
[2023-10-09] MEDS: methylPREDNISolone 40MG 1ML VIAL IV SCH (21:55)
[2023-10-09] MEDS: clonazePAM 0.5 MG TAB PO PRN (21:56)
[2023-10-09] MEDS: CARVedilol 12.5 MG TAB PO SCH (21:56)
[2023-10-09] MEDS: ACETAMINOPHEN TAB 650MG DOSE (2X325MG) PO PRN (23:41)
[2023-10-10 02:00] VITALS: BP 147/78; TEMP 97.1; O2SAT 92
[2023-10-10] MEDS: IPRATROPIUM 0.5MG/ALBUTEROL 2.5MG INH SOL UD 3ML (DUONEB) NEB SCH ×4 (02:11→21:56)
[2023-10-10 04:00] VITALS: BP 148/74; TEMP 96.6; O2SAT 95
[2023-10-10] MEDS: LEVOTHYROXINE 25MCG TABLET (0.025MG) PO SCH (06:10)
[2023-10-10 07:56] LABS: BASO % 0.1 % (0.0-1.0); HEMATOCRIT 41.1 % (36.0-47.0); HEMOGLOBIN 13.9 g/dl (12.0-15.5); LYMPH % 8.2 % (24.0-44.0); MEAN CORPUSCULAR HEMOGLOBIN 32.9 pg (27.0-33.0); MEAN CORPUSCULAR HGB CONC 33.8 g/dl (32.0-36.5); MEAN CORPUSCULAR VOLUME 97.4 fl (80.0-96.0); MONO # 0.1 10^3/uL (0.0-0.8); MONO % 0.6 % (2.0-8.0); NEUTROPHILS # 10.8 10^3/uL (1.5-8.5); NEUTROPHILS % 90.8 % (36.0-66.0); PLATELET COUNT, AUTOMATED 438 10^3/uL (150-450); RED BLOOD COUNT 4.22 10^6/uL (4.00-5.40); WHITE BLOOD COUNT 11.9 10^3/uL (4.0-10.0)
[2023-10-10 08:02] VITALS: O2SAT 93
[2023-10-10 08:16] LABS: BLOOD UREA NITROGEN 17 MG/DL (9-23); CALCIUM LEVEL 10.1 MG/DL (8.3-10.6); CARBON DIOXIDE LEVEL 28 MMOL/L (20-31); CHLORIDE LEVEL 106 MMOL/L (98-107); CREATININE FOR GFR 0.65 MG/DL (0.55-1.30); GLOMERULAR FILTRATION RATE > 60.0 (>39); GLUCOSE, FASTING 201 MG/DL (74-106); MAGNESIUM LEVEL 1.8 MG/DL (1.8-2.4); POTASSIUM SERUM 4.2 MMOL/L (3.5-5.1); SODIUM LEVEL 141 MMOL/L (136-145)
[2023-10-10] MEDS ORDERED: ENOXAPARIN 40MG/0.4ML SYRINGE (J1650 PER 10MG) SC SCH (09:00)
[2023-10-10] MEDS: lisinopriL 40MG TAB PO SCH (09:23)
[2023-10-10] MEDS: SERTRALINE 100 MG TAB PO SCH (09:23)
[2023-10-10] MEDS: RIVAROXABAN 20MG TAB (XARELTO) PO SCH (09:23)
[2023-10-10] MEDS: CARVedilol 12.5 MG TAB PO SCH ×2 (09:24→20:52)
[2023-10-10] MEDS: amLODIPine 5 MG TAB PO SCH (09:24)
[2023-10-10] MEDS: methylPREDNISolone 40MG 1ML VIAL IV SCH ×2 (09:24→20:50)
[2023-10-10] MEDS ORDERED: clonazePAM 1 MG TAB PO ONE (09:35)
[2023-10-10] MEDS: MULTIVITAMINS/MINERALS THERAP 1 TAB PO SCH (10:27)
[2023-10-10] MEDS: guaiFENesin 200 MG TAB PO PRN (10:27)
[2023-10-10] MEDS: FAMOTIDINE 20 MG TAB PO SCH ×2 (10:27→20:50)
[2023-10-10] MEDS: EZETIMIBE 10MG TABLET (ZETIA) PO SCH (12:16)
[2023-10-10] MEDS: SERTRALINE HCL 25 MG TABLET PO SCH (12:16)
[2023-10-10 14:00] VITALS: BP 136/66; TEMP 97.6; O2SAT 91
[2023-10-10] MEDS: traMADol 50 MG TAB PO PRN (14:21)
[2023-10-10] MEDS: AZITHROMYCIN 250MG TABLET PO SCH (17:14)
[2023-10-10] MEDS: cefTRIAXone SOD 2 GM in D5W MINI-BAG PLUS 50 ML IV SCH (17:15)
[2023-10-10] MEDS: clonazePAM 0.5 MG TAB PO PRN (20:51)
[2023-10-10] MEDS: ACETAMINOPHEN TAB 650MG DOSE (2X325MG) PO PRN (20:51)
[2023-10-10 22:00] VITALS: BP 160/73; TEMP 97; O2SAT 93
[2023-10-11] MEDS: IPRATROPIUM 0.5MG/ALBUTEROL 2.5MG INH SOL UD 3ML (DUONEB) NEB SCH ×4 (01:53→21:20)
[2023-10-11] MEDS: LEVOTHYROXINE 25MCG TABLET (0.025MG) PO SCH (05:47)
[2023-10-11 06:00] VITALS: BP 145/74; TEMP 97.1; O2SAT 92
[2023-10-11 06:51] LABS: BASO % 0.1 % (0.0-1.0); HEMATOCRIT 40.9 % (36.0-47.0); HEMOGLOBIN 13.6 g/dl (12.0-15.5); LYMPH # 1.4 10^3/uL (1.5-5.0); LYMPH % 9.7 % (24.0-44.0); MEAN CORPUSCULAR HEMOGLOBIN 32.5 pg (27.0-33.0); MEAN CORPUSCULAR HGB CONC 33.3 g/dl (32.0-36.5); MEAN CORPUSCULAR VOLUME 97.8 fl (80.0-96.0); MONO # 0.3 10^3/uL (0.0-0.8); MONO % 2.4 % (2.0-8.0); NEUTROPHILS # 12.2 10^3/uL (1.5-8.5); NEUTROPHILS % 87.3 % (36.0-66.0); PLATELET COUNT, AUTOMATED 444 10^3/uL (150-450); RED BLOOD COUNT 4.18 10^6/uL (4.00-5.40)
[2023-10-11 07:22] LABS: BLOOD UREA NITROGEN 20 MG/DL (9-23); CARBON DIOXIDE LEVEL 26 MMOL/L (20-31); CHLORIDE LEVEL 103 MMOL/L (98-107); CREATININE FOR GFR 0.65 MG/DL (0.55-1.30); GLOMERULAR FILTRATION RATE > 60.0 (>39); GLUCOSE, FASTING 142 MG/DL (74-106); POTASSIUM SERUM 4.5 MMOL/L (3.5-5.1); SODIUM LEVEL 139 MMOL/L (136-145)
[2023-10-11] MEDS: SERTRALINE HCL 25 MG TABLET PO SCH (09:29)
[2023-10-11] MEDS: methylPREDNISolone 40MG 1ML VIAL IV SCH ×2 (09:29→21:08)
[2023-10-11] MEDS: MULTIVITAMINS/MINERALS THERAP 1 TAB PO SCH (09:29)
[2023-10-11] MEDS: EZETIMIBE 10MG TABLET (ZETIA) PO SCH (09:29)
[2023-10-11] MEDS: SERTRALINE 100 MG TAB PO SCH (09:29)
[2023-10-11] MEDS: RIVAROXABAN 20MG TAB (XARELTO) PO SCH (09:30)
[2023-10-11] MEDS: FAMOTIDINE 20 MG TAB PO SCH ×2 (09:30→21:09)
[2023-10-11] MEDS: lisinopriL 40MG TAB PO SCH (09:31)
[2023-10-11] MEDS: CARVedilol 12.5 MG TAB PO SCH ×2 (09:32→21:09)
[2023-10-11] MEDS: amLODIPine 5 MG TAB PO SCH (09:32)
[2023-10-11] MEDS: guaiFENesin 200 MG TAB PO PRN (10:23)
[2023-10-11] MEDS: VITAMIN D 1,000 INTERNATIONAL UNITS TABLET PO SCH (10:23)
[2023-10-11] MEDS: clonazePAM 1 MG TAB PO SCH (10:24)
[2023-10-11 14:00] VITALS: BP 114/59; TEMP 97.3; O2SAT 89
[2023-10-11] MEDS: AZITHROMYCIN 250MG TABLET PO SCH (17:03)
[2023-10-11] MEDS: cefTRIAXone SOD 2 GM in D5W MINI-BAG PLUS 50 ML IV SCH (17:03)
[2023-10-11] MEDS: ACETAMINOPHEN TAB 650MG DOSE (2X325MG) PO PRN (17:03)
[2023-10-11] MEDS: DOCUSATE SODIUM 100MG CAPSULE PO SCH (21:09)
[2023-10-11] MEDS: clonazePAM 0.5 MG TAB PO PRN (21:09)
[2023-10-11] MEDS: traMADol 50 MG TAB PO PRN (21:10)
[2023-10-11 22:00] VITALS: BP 134/61; TEMP 96.8; O2SAT 94
[2023-10-12] MEDS: IPRATROPIUM 0.5MG/ALBUTEROL 2.5MG INH SOL UD 3ML (DUONEB) NEB SCH ×4 (02:00→19:52)
[2023-10-12] MEDS: LEVOTHYROXINE 25MCG TABLET (0.025MG) PO SCH (05:04)
[2023-10-12] MEDS: ACETAMINOPHEN TAB 650MG DOSE (2X325MG) PO PRN ×2 (05:04→20:20)
[2023-10-12 06:00] VITALS: BP 123/58; TEMP 97; O2SAT 94
[2023-10-12 07:33] LABS: BASO % 0.1 % (0.0-1.0); HEMATOCRIT 38.5 % (36.0-47.0); LYMPH # 1.3 10^3/uL (1.5-5.0); LYMPH % 8.9 % (24.0-44.0); MEAN CORPUSCULAR HEMOGLOBIN 33.6 pg (27.0-33.0); MEAN CORPUSCULAR HGB CONC 33.8 g/dl (32.0-36.5); MEAN CORPUSCULAR VOLUME 99.5 fl (80.0-96.0); MONO # 0.6 10^3/uL (0.0-0.8); MONO % 4.1 % (2.0-8.0); NEUTROPHILS % 86.6 % (36.0-66.0); PLATELET COUNT, AUTOMATED 411 10^3/uL (150-450); RED BLOOD COUNT 3.87 10^6/uL (4.00-5.40)
[2023-10-12 07:54] LABS: BLOOD UREA NITROGEN 20 MG/DL (9-23); CALCIUM LEVEL 9.7 MG/DL (8.3-10.6); CARBON DIOXIDE LEVEL 30 MMOL/L (20-31); CHLORIDE LEVEL 105 MMOL/L (98-107); CREATININE FOR GFR 0.72 MG/DL (0.55-1.30); GLOMERULAR FILTRATION RATE > 60.0 (>39); GLUCOSE, FASTING 126 MG/DL (74-106); POTASSIUM SERUM 4.1 MMOL/L (3.5-5.1); SODIUM LEVEL 140 MMOL/L (136-145)
[2023-10-12] MEDS: RIVAROXABAN 20MG TAB (XARELTO) PO SCH (08:36)
[2023-10-12] MEDS: SERTRALINE 100 MG TAB PO SCH (08:36)
[2023-10-12] MEDS: SERTRALINE HCL 25 MG TABLET PO SCH (08:36)
[2023-10-12] MEDS: MULTIVITAMINS/MINERALS THERAP 1 TAB PO SCH (08:36)
[2023-10-12] MEDS: FAMOTIDINE 20 MG TAB PO SCH ×2 (08:36→20:20)
[2023-10-12] MEDS: clonazePAM 1 MG TAB PO SCH (08:37)
[2023-10-12] MEDS: EZETIMIBE 10MG TABLET (ZETIA) PO SCH (08:37)
[2023-10-12] MEDS: guaiFENesin 200 MG TAB PO PRN (08:37)
[2023-10-12] MEDS: VITAMIN D 1,000 INTERNATIONAL UNITS TABLET PO SCH (08:37)
[2023-10-12] MEDS: CARVedilol 12.5 MG TAB PO SCH ×2 (08:38→20:20)
[2023-10-12] MEDS: lisinopriL 40MG TAB PO SCH (08:38)
[2023-10-12] MEDS: amLODIPine 5 MG TAB PO SCH (08:38)
[2023-10-12] MEDS: CEFDINIR 300 MG CAP (OMNICEF) PO SCH ×2 (12:29→20:19)
[2023-10-12] MEDS: FLUTICASONE PROP 0.05% NASAL SPRAY 16 GM (FLONASE) NARES SCH (12:30)
[2023-10-12] MEDS: traMADol 50 MG TAB PO PRN (13:59)
[2023-10-12 14:00] VITALS: BP 138/70; TEMP 97; O2SAT 95
[2023-10-12] MEDS: DOCUSATE SODIUM 100MG CAPSULE PO SCH (19:43)
[2023-10-12 20:18] VITALS: BP 135/62; TEMP 97; O2SAT 94
[2023-10-12] MEDS: clonazePAM 0.5 MG TAB PO PRN (20:21)
[2023-10-12 20:40] VITALS: BP 148/88; TEMP 97.5; O2SAT 95
[2023-10-13] MEDS: IPRATROPIUM 0.5MG/ALBUTEROL 2.5MG INH SOL UD 3ML (DUONEB) NEB SCH ×3 (02:16→13:35)
[2023-10-13] MEDS: traMADol 50 MG TAB PO PRN (02:50)
[2023-10-13 05:39] LABS: BASO % 0.4 % (0.0-1.0); EOS # 0.1 10^3/uL (0.0-0.5); EOS % 1.5 % (0.0-3.0); HEMATOCRIT 37.1 % (36.0-47.0); HEMOGLOBIN 12.4 g/dl (12.0-15.5); LYMPH # 3.3 10^3/uL (1.5-5.0); LYMPH % 34.4 % (24.0-44.0); MEAN CORPUSCULAR HEMOGLOBIN 33.2 pg (27.0-33.0); MEAN CORPUSCULAR HGB CONC 33.4 g/dl (32.0-36.5); MEAN CORPUSCULAR VOLUME 99.5 fl (80.0-96.0); MONO # 0.8 10^3/uL (0.0-0.8); MONO % 8.2 % (2.0-8.0); NEUTROPHILS # 5.3 10^3/uL (1.5-8.5); NEUTROPHILS % 55.2 % (36.0-66.0); PLATELET COUNT, AUTOMATED 375 10^3/uL (150-450); RED BLOOD COUNT 3.73 10^6/uL (4.00-5.40); WHITE BLOOD COUNT 9.6 10^3/uL (4.0-10.0)
[2023-10-13] MEDS: LEVOTHYROXINE 25MCG TABLET (0.025MG) PO SCH (06:03)
[2023-10-13 06:15] VITALS: BP 138/73; TEMP 97.1; O2SAT 94
[2023-10-13] MEDS: CEFDINIR 300 MG CAP (OMNICEF) PO SCH (09:09)
[2023-10-13] MEDS: EZETIMIBE 10MG TABLET (ZETIA) PO SCH (09:09)
[2023-10-13] MEDS: SERTRALINE HCL 25 MG TABLET PO SCH (09:09)
[2023-10-13] MEDS: CARVedilol 12.5 MG TAB PO SCH (09:09)
[2023-10-13] MEDS: FLUTICASONE PROP 0.05% NASAL SPRAY 16 GM (FLONASE) NARES SCH (09:09)
[2023-10-13] MEDS: VITAMIN D 1,000 INTERNATIONAL UNITS TABLET PO SCH (09:09)
[2023-10-13 09:10] VITALS: BP 138/73
[2023-10-13] MEDS: amLODIPine 5 MG TAB PO SCH (09:10)
[2023-10-13] MEDS: RIVAROXABAN 20MG TAB (XARELTO) PO SCH (09:10)
[2023-10-13] MEDS: FAMOTIDINE 20 MG TAB PO SCH (09:10)
[2023-10-13] MEDS: MULTIVITAMINS/MINERALS THERAP 1 TAB PO SCH (09:10)
[2023-10-13] MEDS: SERTRALINE 100 MG TAB PO SCH (09:10)
[2023-10-13] MEDS: lisinopriL 40MG TAB PO SCH (09:10)
[2023-10-13] MEDS: clonazePAM 1 MG TAB PO SCH (09:10)
[2023-10-13] MEDS: ACETAMINOPHEN TAB 650MG DOSE (2X325MG) PO PRN (09:15)
[2023-10-13] MEDS ORDERED: CEFD300CAP PO (12:20)
[2023-10-13] MEDS ORDERED: FLUTISP NARES (12:20)
== END 2023-10-13 14:20 | disposition home or self-care (01) | DRG 192 ==
LOC: EDBD 13:17 → M ED 13:17 → M ED INP 15:42 → M MS4PR 10-10 01:49
PROVIDERS: ADMIT Family Medicine; ATTEND Student in an Organized Health Care Education/Training Program
DX: J44.1 Chronic obstructive pulmonary disease with (acute) exacerbation (principal); B97.4 Respiratory syncytial virus as the cause of diseases classified elsewhere; I10 Essential (primary) hypertension; E78.5 Hyperlipidemia, unspecified; F32.A Depression, unspecified; F41.9 Anxiety disorder, unspecified; Z86.711 Personal history of pulmonary embolism; Z79.01 Long term (current) use of anticoagulants; Z79.890 Hormone replacement therapy; Z79.899 Other long term (current) drug therapy; Z88.0 Allergy status to penicillin; Z88.6 Allergy status to analgesic agent; Z88.8 Allergy status to other drugs, medicaments and biological substances; Z20.822 Contact with and (suspected) exposure to COVID-19

== ENCOUNTER → 2023-10-19 | Outpatient (REF) | payer MEDICARE ==
[~2023-10-19] MED LIST changes: +ALBU8.5H PO; +CEFD300CAP PO; +FLUTISP NARES; +TREL1AER PO
== END ==
LOC: M SFHCCLAY 17:12
PROVIDERS: ATTEND Physician Assistant
DX: B34.9 Viral infection, unspecified (principal)

== ENCOUNTER → 2023-11-09 | Outpatient (CLI) | payer MEDICARE ==
[~2023-11-09] MED LIST changes: -MIRA1POW3 PO; +MIRA33506 PO
== END ==
LOC: M WHC 12:46
PROVIDERS: ATTEND Nurse Practitioner Family
DX: Z12.31 Encounter for screening mammogram for malignant neoplasm of breast (principal)

== ENCOUNTER → 2023-11-17 | Outpatient (CLI) | payer MEDICARE | LOC: M PAIN 11:00 | PROVIDERS: ATTEND Anesthesiology | DX: M70.61 Trochanteric bursitis, right hip (principal); M70.62 Trochanteric bursitis, left hip; Z79.891 Long term (current) use of opiate analgesic; I10 Essential (primary) hypertension; F41.9 Anxiety disorder, unspecified; F32.A Depression, unspecified; E03.9 Hypothyroidism, unspecified; F10.11 Alcohol abuse, in remission; E04.1 Nontoxic single thyroid nodule; E78.5 Hyperlipidemia, unspecified; L40.9 Psoriasis, unspecified; J44.9 Chronic obstructive pulmonary disease, unspecified; Z99.81 Dependence on supplemental oxygen; Z87.891 Personal history of nicotine dependence; Z79.01 Long term (current) use of anticoagulants; Z79.899 Other long term (current) drug therapy; Z86.711 Personal history of pulmonary embolism; Z88.1 Allergy status to other antibiotic agents; Z88.8 Allergy status to other drugs, medicaments and biological substances; Z88.6 Allergy status to analgesic agent ==

== ENCOUNTER → 2023-11-19 | Outpatient (REF) | payer MEDICARE ==
[2023-11-19 17:42] LABS: THYROID STIMULATING HORMONE 2.755 uIU/ML (0.55-4.78)
[2023-11-19 17:43] LABS: ALBUMIN 3.9 G/DL (3.2-5.2); ALKALINE PHOSPHATASE 74 U/L (46-116); ALT/SGPT 27 U/L (7.0-40); AST/SGOT 23 U/L (<34); BILIRUBIN,TOTAL 0.5 MG/DL (0.3-1.2); BLOOD UREA NITROGEN 13 MG/DL (9-23); CALCIUM LEVEL 9.8 MG/DL (8.3-10.6); CARBON DIOXIDE LEVEL 28 MMOL/L (20-31); CHLORIDE LEVEL 107 MMOL/L (98-107); CHOLESTEROL LEVEL 244 MG/DL (<200); CHOLESTEROL RISK RATIO 3.89 (<5); CREATININE FOR GFR 0.73 MG/DL (0.55-1.30); GLOMERULAR FILTRATION RATE > 60.0 (>39); GLUCOSE, FASTING 86 MG/DL (74-106); HDL CHOLESTEROL 62.7 MG/DL (>40); LDL CHOLESTEROL 158.7 MG/DL (<100); NON-HDL-C 181.3 MG/DL; POTASSIUM SERUM 4.5 MMOL/L (3.5-5.1); SODIUM LEVEL 139 MMOL/L (136-145); TOTAL PROTEIN 6.9 G/DL (5.7-8.2); TRIGLYCERIDES LEVEL 113 MG/DL (<150)
[2023-11-19 17:44] LABS: FREE T4 0.94 NG/DL (0.89-1.76)
== END ==
LOC: M SFHCCLAY 11:38
PROVIDERS: ATTEND Nurse Practitioner Family
DX: E78.5 Hyperlipidemia, unspecified (principal); I10 Essential (primary) hypertension; E03.9 Hypothyroidism, unspecified; E04.1 Nontoxic single thyroid nodule; E55.9 Vitamin D deficiency, unspecified; M25.551 Pain in right hip; M25.552 Pain in left hip; F33.1 Major depressive disorder, recurrent, moderate; Z86.711 Personal history of pulmonary embolism; Z79.899 Other long term (current) drug therapy

== ENCOUNTER → 2023-11-30 | Outpatient (REF) | payer MEDICARE ==
[~2023-11-30] MED LIST changes: -MELA1TAB9 PO; +MELA5TAB58 PO
[2023-11-30 16:18] LABS: APPEARANCE, URINE CLEAR (CLEAR); BACTERIA, URINE AUTO NEGATIVE (NEGATIVE); BILIRUBIN, URINE AUTO NEGATIVE (NEGATIVE); BLOOD, URINE BLOOD NEGATIVE (NEGATIVE); COLOR, URINE YELLOW (YELLOW); GLUCOSE, URINE (UA) AUTO NEGATIVE (NEGATIVE); KETONE, URINE AUTO NEGATIVE (NEGATIVE); LEUKOCYTE ESTERASE, URINE AUTO NEGATIVE (NEGATIVE); MUCUS, URINE SMALL (NEGATIVE); NITRITE, URINE AUTO NEGATIVE (NEGATIVE); PROTEIN, URINE AUTO NEGATIVE (NEGATIVE); RBC, URINE AUTO 1 /HPF (0-3); SPECIFIC GRAVITY URINE AUTO 1.011 (1.002-1.035); SQUAMOUS EPITHELIAL CELL UR AU 0 /HPF (0-6); UROBILINOGEN, URINE AUTO 0.2 mg/dL (0.0-2.0); WBC, URINE AUTO 1 /HPF (0-3)
== END ==
LOC: M SMT 15:22
PROVIDERS: ATTEND Urology
DX: N32.81 Overactive bladder (principal)

== ENCOUNTER → 2023-12-02 | Outpatient (CLI) | payer MEDICARE | LOC: M SOG 07:52 | PROVIDERS: ATTEND Orthopaedic Surgery | DX: Z53.9 Procedure and treatment not carried out, unspecified reason (principal) ==

== ENCOUNTER → 2023-12-08 | Outpatient (CLI) | payer MEDICARE | LOC: M WUC 14:48 | PROVIDERS: ATTEND Physician Assistant | DX: R10.813 Right lower quadrant abdominal tenderness (principal) ==

== ENCOUNTER → 2023-12-09 | Outpatient (CLI) | payer MEDICARE | LOC: M SOG 11:19 | PROVIDERS: ATTEND Orthopaedic Surgery | DX: M19.031 Primary osteoarthritis, right wrist (principal) ==

== ENCOUNTER → 2024-01-06 | Outpatient (REF) | payer MEDICARE | LOC: M SFHCCLAY 15:25 | PROVIDERS: ATTEND Physician Assistant | DX: R05.1 Acute cough (principal) ==

== ENCOUNTER → 2024-01-06 | Outpatient (CLI) | payer MEDICARE, OTHER | LOC: M RAD 10:20 | PROVIDERS: ATTEND Physician Assistant | DX: R05.1 Acute cough (principal) ==

== ENCOUNTER → 2024-01-17 | Outpatient (CLI) | payer MEDICARE | LOC: M CLY 11:50 | PROVIDERS: ATTEND Nurse Practitioner Family | DX: M19.011 Primary osteoarthritis, right shoulder (principal); M85.88 Other specified disorders of bone density and structure, other site ==

== ENCOUNTER → 2024-02-16 | Outpatient (CLI) | payer MEDICARE | LOC: M PAIN 16:30 | PROVIDERS: ATTEND Anesthesiology | DX: M25.551 Pain in right hip (principal); M70.61 Trochanteric bursitis, right hip; G89.29 Other chronic pain; M54.50 Low back pain, unspecified; M25.552 Pain in left hip; I10 Essential (primary) hypertension; F41.9 Anxiety disorder, unspecified; F32.A Depression, unspecified; E03.9 Hypothyroidism, unspecified; F10.11 Alcohol abuse, in remission; M81.0 Age-related osteoporosis without current pathological fracture; E78.5 Hyperlipidemia, unspecified; L40.9 Psoriasis, unspecified; J44.9 Chronic obstructive pulmonary disease, unspecified; Z99.81 Dependence on supplemental oxygen; Z87.891 Personal history of nicotine dependence; Z79.891 Long term (current) use of opiate analgesic; Z79.899 Other long term (current) drug therapy; Z88.5 Allergy status to narcotic agent; Z88.8 Allergy status to other drugs, medicaments and biological substances ==

== ENCOUNTER → 2024-04-13 | Outpatient (REF) | payer MEDICARE | LOC: M SFHCCLAY 12:04 | PROVIDERS: ATTEND Nurse Practitioner Family | DX: J02.9 Acute pharyngitis, unspecified (principal) ==

== ENCOUNTER → 2024-05-04 | Outpatient (CLI) | payer MEDICARE | LOC: M RAD 14:49 | PROVIDERS: ATTEND Internal Medicine Pulmonary Disease | DX: Z12.2 Encounter for screening for malignant neoplasm of respiratory organs (principal); Z87.891 Personal history of nicotine dependence ==

== ENCOUNTER → 2024-05-31 | Outpatient (CLI) | payer MEDICARE | LOC: M PAIN 13:45 | PROVIDERS: ATTEND Anesthesiology | DX: M25.559 Pain in unspecified hip (principal); M54.50 Low back pain, unspecified; M70.71 Other bursitis of hip, right hip; M70.72 Other bursitis of hip, left hip; I10 Essential (primary) hypertension; F41.9 Anxiety disorder, unspecified; F32.A Depression, unspecified; E03.9 Hypothyroidism, unspecified; F10.11 Alcohol abuse, in remission; M81.0 Age-related osteoporosis without current pathological fracture; E78.5 Hyperlipidemia, unspecified; M19.90 Unspecified osteoarthritis, unspecified site; L40.9 Psoriasis, unspecified; N39.46 Mixed incontinence; J44.9 Chronic obstructive pulmonary disease, unspecified; Z86.711 Personal history of pulmonary embolism; Z79.01 Long term (current) use of anticoagulants; Z79.899 Other long term (current) drug therapy; Z87.891 Personal history of nicotine dependence; Z88.5 Allergy status to narcotic agent; Z88.8 Allergy status to other drugs, medicaments and biological substances ==

== ENCOUNTER → 2024-06-05 | Outpatient (REF) | payer MEDICARE ==
[2024-06-05 16:53] LABS: BASO # 0.1 10^3/uL (0.0-0.2); BASO % 1.3 % (0.0-1.0); EOS # 0.4 10^3/uL (0.0-0.5); HEMATOCRIT 39.4 % (36.0-47.0); LYMPH # 1.6 10^3/uL (1.5-5.0); LYMPH % 24.4 % (24.0-44.0); MEAN CORPUSCULAR HEMOGLOBIN 33.9 pg (27.0-33.0); MEAN CORPUSCULAR VOLUME 102.9 fl (80.0-96.0); MONO # 0.5 10^3/uL (0.0-0.8); MONO % 8.5 % (2.0-8.0); NEUTROPHILS # 3.8 10^3/uL (1.5-8.5); NEUTROPHILS % 59.5 % (36.0-66.0); PLATELET COUNT, AUTOMATED 316 10^3/uL (150-450); RED BLOOD COUNT 3.83 10^6/uL (4.00-5.40); WHITE BLOOD COUNT 6.4 10^3/uL (4.0-10.0)
[2024-06-05 17:14] LABS: HEMOGLOBIN A1c 6.1 % (4.0-6.0)
[2024-06-05 17:19] LABS: ALBUMIN 3.8 G/DL (3.2-5.2); ALKALINE PHOSPHATASE 76 U/L (46-116); ALT/SGPT 26 U/L (7.0-40); AST/SGOT 20 U/L (<34); BILIRUBIN,TOTAL 0.3 MG/DL (0.3-1.2); BLOOD UREA NITROGEN 8 MG/DL (9-23); CALCIUM LEVEL 9.8 MG/DL (8.3-10.6); CARBON DIOXIDE LEVEL 31 MMOL/L (20-31); CHLORIDE LEVEL 107 MMOL/L (98-107); CHOLESTEROL LEVEL 208 MG/DL (<200); CHOLESTEROL RISK RATIO 3.53 (<5); CREATININE FOR GFR 0.73 MG/DL (0.55-1.30); GLOMERULAR FILTRATION RATE > 60.0 (>39); GLUCOSE, FASTING 93 MG/DL (74-106); HDL CHOLESTEROL 58.9 MG/DL (>40); LDL CHOLESTEROL 118.7 MG/DL (<100); NON-HDL-C 149.1 MG/DL; POTASSIUM SERUM 4.1 MMOL/L (3.5-5.1); SODIUM LEVEL 141 MMOL/L (136-145); TOTAL PROTEIN 6.9 G/DL (5.7-8.2); TRIGLYCERIDES LEVEL 152 MG/DL (<150)
[2024-06-05 17:21] LABS: FREE T4 1.01 NG/DL (0.89-1.76); THYROID STIMULATING HORMONE 1.599 uIU/ML (0.55-4.78)
== END ==
LOC: M SFHCCLAY 11:41
PROVIDERS: ATTEND Nurse Practitioner Family
DX: F33.1 Major depressive disorder, recurrent, moderate (principal); E78.5 Hyperlipidemia, unspecified; I10 Essential (primary) hypertension; E03.9 Hypothyroidism, unspecified; E55.9 Vitamin D deficiency, unspecified; E04.1 Nontoxic single thyroid nodule; Z86.711 Personal history of pulmonary embolism; S49.91XD Unspecified injury of right shoulder and upper arm, subsequent encounter; B37.9 Candidiasis, unspecified; J44.1 Chronic obstructive pulmonary disease with (acute) exacerbation; M48.062 Spinal stenosis, lumbar region with neurogenic claudication; Z79.899 Other long term (current) drug therapy

== ENCOUNTER → 2024-07-12 | Outpatient (CLI) | payer MEDICARE | LOC: M PAIN 16:00 | PROVIDERS: ATTEND Anesthesiology | DX: M48.062 Spinal stenosis, lumbar region with neurogenic claudication (principal); M51.16 Intervertebral disc disorders with radiculopathy, lumbar region; G89.29 Other chronic pain; I10 Essential (primary) hypertension; F41.9 Anxiety disorder, unspecified; F32.A Depression, unspecified; E03.9 Hypothyroidism, unspecified; M81.0 Age-related osteoporosis without current pathological fracture; L40.9 Psoriasis, unspecified; H26.9 Unspecified cataract; J44.9 Chronic obstructive pulmonary disease, unspecified; Z99.81 Dependence on supplemental oxygen; Z86.711 Personal history of pulmonary embolism; Z79.891 Long term (current) use of opiate analgesic; Z79.899 Other long term (current) drug therapy; Z87.891 Personal history of nicotine dependence; Z88.1 Allergy status to other antibiotic agents; Z88.5 Allergy status to narcotic agent; Z88.6 Allergy status to analgesic agent; Z88.8 Allergy status to other drugs, medicaments and biological substances ==

== ENCOUNTER → 2024-07-28 | Outpatient (CLI) | payer MEDICARE | LOC: M SOG 07:54 | PROVIDERS: ATTEND Orthopaedic Surgery | DX: M79.644 Pain in right finger(s) (principal); M79.645 Pain in left finger(s); M79.641 Pain in right hand; Z53.9 Procedure and treatment not carried out, unspecified reason ==

== ENCOUNTER → 2024-08-07 | Outpatient (REF) | payer MEDICARE | LOC: M SFHCCLAY 11:42 | PROVIDERS: ATTEND Physician Assistant | DX: R05.1 Acute cough (principal) ==

== ENCOUNTER → 2024-08-31 | Outpatient (CLI) | payer MEDICARE | LOC: M SOG 07:53 | PROVIDERS: ATTEND Orthopaedic Surgery | DX: M79.644 Pain in right finger(s) (principal); M79.645 Pain in left finger(s); M79.641 Pain in right hand; Z53.9 Procedure and treatment not carried out, unspecified reason ==

== ENCOUNTER → 2024-10-02 | Outpatient (CLI) | payer MEDICARE | LOC: M WUC 13:25 | PROVIDERS: ATTEND Nurse Practitioner Family | DX: J44.9 Chronic obstructive pulmonary disease, unspecified (principal); J98.4 Other disorders of lung ==

== ENCOUNTER → 2024-10-04 | Outpatient (CLI) | payer MEDICARE | LOC: M PAIN 15:00 | PROVIDERS: ATTEND Anesthesiology | DX: M48.061 Spinal stenosis, lumbar region without neurogenic claudication (principal); Z79.891 Long term (current) use of opiate analgesic; I10 Essential (primary) hypertension; F41.9 Anxiety disorder, unspecified; F32.A Depression, unspecified; E03.9 Hypothyroidism, unspecified; M81.0 Age-related osteoporosis without current pathological fracture; E78.5 Hyperlipidemia, unspecified; L40.9 Psoriasis, unspecified; M70.61 Trochanteric bursitis, right hip; M70.62 Trochanteric bursitis, left hip; J44.9 Chronic obstructive pulmonary disease, unspecified; Z87.891 Personal history of nicotine dependence; Z79.899 Other long term (current) drug therapy; Z79.890 Hormone replacement therapy; Z88.1 Allergy status to other antibiotic agents; Z88.5 Allergy status to narcotic agent; Z88.6 Allergy status to analgesic agent; Z88.8 Allergy status to other drugs, medicaments and biological substances ==

== ENCOUNTER → 2024-10-05 | Outpatient (CLI) | payer MEDICARE | LOC: M SOG 07:55 | PROVIDERS: ATTEND Orthopaedic Surgery | DX: M25.512 Pain in left shoulder (principal); M25.511 Pain in right shoulder; Z53.9 Procedure and treatment not carried out, unspecified reason ==

== ENCOUNTER → 2024-10-30 | Outpatient (REF) | payer MEDICARE | LOC: M SFHCCLAY 12:09 | PROVIDERS: ATTEND Nurse Practitioner Family | DX: R39.11 Hesitancy of micturition (principal) ==

== ENCOUNTER → 2024-11-01 | Outpatient (CLI) | payer MEDICARE ==
[2024-11-01 17:06] LABS: BASO # 0.1 10^3/uL (0.0-0.2); BASO % 0.9 % (0.0-1.0); EOS # 0.3 10^3/uL (0.0-0.5); EOS % 3.4 % (0.0-3.0); HEMATOCRIT 39.8 % (36.0-47.0); HEMOGLOBIN 13.1 g/dl (12.0-15.5); LYMPH % 20.3 % (24.0-44.0); MEAN CORPUSCULAR HEMOGLOBIN 33.6 pg (27.0-33.0); MEAN CORPUSCULAR HGB CONC 32.9 g/dl (32.0-36.5); MEAN CORPUSCULAR VOLUME 102.1 fl (80.0-96.0); MONO # 0.9 10^3/uL (0.0-0.8); MONO % 9.4 % (2.0-8.0); NEUTROPHILS # 6.4 10^3/uL (1.5-8.5); NEUTROPHILS % 65.7 % (36.0-66.0); PLATELET COUNT, AUTOMATED 352 10^3/uL (150-450); WHITE BLOOD COUNT 9.7 10^3/uL (4.0-10.0)
[2024-11-01 17:26] LABS: ALBUMIN 3.5 G/DL (3.2-5.2); ALKALINE PHOSPHATASE 84 U/L (35-104); ALT/SGPT 27 U/L (7.0-40); AST/SGOT 24 U/L (<34); BILIRUBIN,TOTAL 0.3 MG/DL (0.3-1.2); BLOOD UREA NITROGEN 12 MG/DL (9-23); CALCIUM LEVEL 9.7 MG/DL (8.3-10.6); CARBON DIOXIDE LEVEL 29 MMOL/L (20-31); CHLORIDE LEVEL 107 MMOL/L (98-107); CHOLESTEROL LEVEL 183 MG/DL (<200); CHOLESTEROL RISK RATIO 3.53 (<5); CREATININE FOR GFR 0.77 MG/DL (0.55-1.30); GLOMERULAR FILTRATION RATE > 60.0 (>39); GLUCOSE, FASTING 96 MG/DL (74-106); HDL CHOLESTEROL 51.8 MG/DL (>40); LDL CHOLESTEROL 93.6 MG/DL (<100); NON-HDL-C 131.2 MG/DL; POTASSIUM SERUM 4.3 MMOL/L (3.5-5.1); SODIUM LEVEL 145 MMOL/L (136-145); TOTAL PROTEIN 6.8 G/DL (5.7-8.2); TRIGLYCERIDES LEVEL 188 MG/DL (<150)
[2024-11-01 17:29] LABS: FREE T4 1.17 NG/DL (0.89-1.76)
[2024-11-01 17:30] LABS: THYROID STIMULATING HORMONE 1.118 uIU/ML (0.55-4.78)
== END ==
LOC: M WUC 14:45
PROVIDERS: ATTEND Nurse Practitioner Family
DX: E78.5 Hyperlipidemia, unspecified (principal); F33.1 Major depressive disorder, recurrent, moderate; I10 Essential (primary) hypertension; E03.9 Hypothyroidism, unspecified; E55.9 Vitamin D deficiency, unspecified; E04.1 Nontoxic single thyroid nodule; Z86.711 Personal history of pulmonary embolism; M48.062 Spinal stenosis, lumbar region with neurogenic claudication; J44.9 Chronic obstructive pulmonary disease, unspecified; K59.00 Constipation, unspecified; F41.9 Anxiety disorder, unspecified; R39.11 Hesitancy of micturition

== ENCOUNTER → 2024-11-02 | Outpatient (CLI) | payer MEDICARE | LOC: M SOG 07:54 | PROVIDERS: ATTEND Orthopaedic Surgery | DX: Z53.9 Procedure and treatment not carried out, unspecified reason (principal) ==

== ENCOUNTER 2024-12-11 09:09 | Day surgery (SDC) | payer MEDICARE ==
[~2024-12-11] VITALS: Ht 157.5 cm; Wt 80.7 kg
[~2024-12-11 09:09] MED LIST changes: +THERTAB52 PO
[2024-12-11 10:24] VITALS: TEMP 97.3
[2024-12-11 10:50] VITALS: BP 125/56; O2SAT 94
== END 2024-12-11 10:55 | disposition home or self-care (01) ==
LOC: M OPP 09:09
PROVIDERS: ATTEND Internal Medicine Gastroenterology
DX: J44.9 Chronic obstructive pulmonary disease, unspecified (principal); Z86.0100 Personal history of colon polyps, unspecified; Z86.711 Personal history of pulmonary embolism; Z88.1 Allergy status to other antibiotic agents; Z88.8 Allergy status to other drugs, medicaments and biological substances; Z79.891 Long term (current) use of opiate analgesic; Z79.52 Long term (current) use of systemic steroids; Z79.01 Long term (current) use of anticoagulants; Z79.899 Other long term (current) drug therapy

== ENCOUNTER → 2024-12-29 | Outpatient (CLI) | payer MEDICARE | LOC: M CARPUL 14:37 | PROVIDERS: ATTEND Nurse Practitioner Family | DX: R01.1 Cardiac murmur, unspecified (principal); I50.30 Unspecified diastolic (congestive) heart failure; I35.0 Nonrheumatic aortic (valve) stenosis; I08.0 Rheumatic disorders of both mitral and aortic valves; I37.1 Nonrheumatic pulmonary valve insufficiency; Z12.31 Encounter for screening mammogram for malignant neoplasm of breast; Z78.0 Asymptomatic menopausal state ==

== ENCOUNTER → 2024-12-29 | Outpatient (CLI) | payer MEDICARE | LOC: M WHC 13:31 | PROVIDERS: ATTEND Nurse Practitioner Family | DX: Z12.31 Encounter for screening mammogram for malignant neoplasm of breast (principal); Z78.0 Asymptomatic menopausal state ==

== ENCOUNTER → 2025-01-05 | Outpatient (CLI) | payer MEDICARE | LOC: M WUC 15:06 | PROVIDERS: ATTEND Physician Assistant | DX: R10.30 Lower abdominal pain, unspecified (principal) ==

== ENCOUNTER 2025-01-12 11:01 | Emergency (ER) | payer MEDICARE ==
[~2025-01-12] VITALS: Ht 152.4 cm; Wt 79.4 kg
[2025-01-12 12:56] LABS: BASO # 0.1 10^3/uL (0.0-0.2); BASO % 1.1 % (0.0-1.0); EOS # 0.3 10^3/uL (0.0-0.5); EOS % 3.8 % (0.0-3.0); HEMATOCRIT 39.1 % (36.0-47.0); HEMOGLOBIN 12.9 g/dl (12.0-15.5); LYMPH # 1.7 10^3/uL (1.5-5.0); LYMPH % 24.3 % (24.0-44.0); MEAN CORPUSCULAR HEMOGLOBIN 33.2 pg (27.0-33.0); MEAN CORPUSCULAR VOLUME 100.8 fl (80.0-96.0); MONO # 0.5 10^3/uL (0.0-0.8); MONO % 7.4 % (2.0-8.0); NEUTROPHILS # 4.5 10^3/uL (1.5-8.5); NEUTROPHILS % 63.1 % (36.0-66.0); PLATELET COUNT, AUTOMATED 353 10^3/uL (150-450); RED BLOOD COUNT 3.88 10^6/uL (4.00-5.40); WHITE BLOOD COUNT 7.2 10^3/uL (4.0-10.0)
[2025-01-12 13:08] LABS: BLOOD UREA NITROGEN 9 MG/DL (9-23); CALCIUM LEVEL 9.9 MG/DL (8.3-10.6); CARBON DIOXIDE LEVEL 27 MMOL/L (20-31); CHLORIDE LEVEL 107 MMOL/L (98-107); CREATININE FOR GFR 0.65 MG/DL (0.55-1.30); GLOMERULAR FILTRATION RATE > 90.0 (>39); GLUCOSE, FASTING 112 MG/DL (74-106); MAGNESIUM LEVEL 1.9 MG/DL (1.8-2.4); POTASSIUM SERUM 4.2 MMOL/L (3.5-5.1); SODIUM LEVEL 143 MMOL/L (136-145)
[2025-01-12] MEDS ORDERED: COLA100C5 PO (13:23)
[2025-01-12] MEDS ORDERED: PREP1SUP PR (13:23)
[2025-01-12 13:37] VITALS: BP 168/89; TEMP 97.6; O2SAT 96
== END 2025-01-12 13:40 | disposition home or self-care (01) ==
LOC: M ED 11:01 → EDBD 11:01 → M ED 13:40
DX: K59.00 Constipation, unspecified (principal); K64.8 Other hemorrhoids; K92.2 Gastrointestinal hemorrhage, unspecified; I10 Essential (primary) hypertension; E03.9 Hypothyroidism, unspecified; J44.9 Chronic obstructive pulmonary disease, unspecified; Z87.891 Personal history of nicotine dependence; Z88.1 Allergy status to other antibiotic agents; Z88.8 Allergy status to other drugs, medicaments and biological substances; Z79.51 Long term (current) use of inhaled steroids; Z79.01 Long term (current) use of anticoagulants; Z79.899 Other long term (current) drug therapy; Z79.810 Long term (current) use of selective estrogen receptor modulators (SERMs)

== ENCOUNTER → 2025-01-29 | Outpatient (REF) | payer MEDICARE ==
[~2025-01-29] MED LIST changes: +COLA100C5 PO; +PREP1SUP PR
[2025-01-29 18:44] LABS: ALBUMIN 3.9 G/DL (3.2-5.2); ALKALINE PHOSPHATASE 80 U/L (35-104); ALT/SGPT 30 U/L (7.0-40); AST/SGOT 25 U/L (<34); BILIRUBIN,TOTAL 0.3 MG/DL (0.3-1.2); BLOOD UREA NITROGEN 10 MG/DL (9-23); CALCIUM LEVEL 10.4 MG/DL (8.3-10.6); CARBON DIOXIDE LEVEL 29 MMOL/L (20-31); CHLORIDE LEVEL 106 MMOL/L (98-107); CREATININE FOR GFR 0.65 MG/DL (0.55-1.30); GLOMERULAR FILTRATION RATE > 90.0 (>39); GLUCOSE, FASTING 107 MG/DL (74-106); POTASSIUM SERUM 4.4 MMOL/L (3.5-5.1); SODIUM LEVEL 145 MMOL/L (136-145); TOTAL PROTEIN 7.1 G/DL (5.7-8.2)
[2025-01-29 18:47] LABS: BASO # 0.1 10^3/uL (0.0-0.2); BASO % 1.1 % (0.0-1.0); EOS # 0.3 10^3/uL (0.0-0.5); EOS % 3.9 % (0.0-3.0); HEMATOCRIT 39.3 % (36.0-47.0); HEMOGLOBIN 13.1 g/dl (12.0-15.5); LYMPH # 1.5 10^3/uL (1.5-5.0); LYMPH % 23.2 % (24.0-44.0); MEAN CORPUSCULAR HEMOGLOBIN 34.1 pg (27.0-33.0); MEAN CORPUSCULAR HGB CONC 33.3 g/dl (32.0-36.5); MEAN CORPUSCULAR VOLUME 102.3 fl (80.0-96.0); MONO # 0.5 10^3/uL (0.0-0.8); MONO % 7.7 % (2.0-8.0); NEUTROPHILS % 63.9 % (36.0-66.0); PLATELET COUNT, AUTOMATED 343 10^3/uL (150-450); RED BLOOD COUNT 3.84 10^6/uL (4.00-5.40); WHITE BLOOD COUNT 6.3 10^3/uL (4.0-10.0)
== END ==
LOC: M SFHCCLAY 09:47
PROVIDERS: ATTEND Nurse Practitioner Family
DX: Z01.818 Encounter for other preprocedural examination (principal)

== ENCOUNTER → 2025-01-30 | Outpatient (CLI) | payer MEDICARE ==
[~2025-01-30] MED LIST changes: +ISOVUE-370 76% 100ML VIAL ONE
== END ==
LOC: M PLAIMG 08:19
PROVIDERS: ATTEND Nurse Practitioner Family
DX: K57.90 Diverticulosis of intestine, part unspecified, without perforation or abscess without bleeding (principal)
CPT/HCPCS: 74177; Q9967

== ENCOUNTER 2025-02-07 11:35 | Emergency (ER) | payer MEDICARE ==
[~2025-02-07] VITALS: Ht 152.4 cm; Wt 77.3 kg
[~2025-02-07 11:35] MED LIST changes: -ISOVUE-370 76% 100ML VIAL ONE
[2025-02-07 11:44] VITALS: TEMP 96.2
[2025-02-07] MEDS ORDERED: DULO1CAP6 PO (12:19)
[2025-02-07] MEDS: MORPHINE 2 MG/ML 1ML VIAL IV ONE (13:02)
[2025-02-07 13:15] LABS: BASO # 0.1 10^3/uL (0.0-0.2); BASO % 0.9 % (0.0-1.0); EOS # 0.2 10^3/uL (0.0-0.5); EOS % 2.9 % (0.0-3.0); HEMATOCRIT 38.8 % (36.0-47.0); HEMOGLOBIN 12.9 g/dl (12.0-15.5); LYMPH # 1.7 10^3/uL (1.5-5.0); LYMPH % 21.7 % (24.0-44.0); MEAN CORPUSCULAR HEMOGLOBIN 33.4 pg (27.0-33.0); MEAN CORPUSCULAR HGB CONC 33.2 g/dl (32.0-36.5); MEAN CORPUSCULAR VOLUME 100.5 fl (80.0-96.0); MONO # 0.7 10^3/uL (0.0-0.8); MONO % 9.4 % (2.0-8.0); NEUTROPHILS # 5.1 10^3/uL (1.5-8.5); NEUTROPHILS % 64.8 % (36.0-66.0); PLATELET COUNT, AUTOMATED 350 10^3/uL (150-450); RED BLOOD COUNT 3.86 10^6/uL (4.00-5.40); WHITE BLOOD COUNT 7.8 10^3/uL (4.0-10.0)
[2025-02-07 13:50] LABS: BLOOD UREA NITROGEN 11 MG/DL (9-23); CALCIUM LEVEL 9.8 MG/DL (8.3-10.6); CARBON DIOXIDE LEVEL 28 MMOL/L (20-31); CHLORIDE LEVEL 107 MMOL/L (98-107); CREATININE FOR GFR 0.58 MG/DL (0.55-1.30); GLOMERULAR FILTRATION RATE > 90.0 (>39); GLUCOSE, FASTING 119 MG/DL (74-106); POTASSIUM SERUM 4.3 MMOL/L (3.5-5.1); SODIUM LEVEL 141 MMOL/L (136-145)
[2025-02-07 14:20] VITALS: O2SAT 95
[2025-02-07 14:30] VITALS: BP 157/66; O2SAT 94
== END 2025-02-07 14:44 | disposition home or self-care (01) ==
LOC: EDBD 11:35 → M ED 11:35
DX: M25.551 Pain in right hip (principal); M25.552 Pain in left hip; I10 Essential (primary) hypertension; F41.9 Anxiety disorder, unspecified; F32.A Depression, unspecified; J44.9 Chronic obstructive pulmonary disease, unspecified; E78.5 Hyperlipidemia, unspecified; E03.9 Hypothyroidism, unspecified; M85.89 Other specified disorders of bone density and structure, multiple sites; M16.0 Bilateral primary osteoarthritis of hip; Z86.711 Personal history of pulmonary embolism; Z87.891 Personal history of nicotine dependence; Z88.8 Allergy status to other drugs, medicaments and biological substances; Z88.1 Allergy status to other antibiotic agents; Z88.6 Allergy status to analgesic agent; Z79.52 Long term (current) use of systemic steroids; Z79.899 Other long term (current) drug therapy

== ENCOUNTER → 2025-04-03 | Outpatient (CLI) | payer MEDICARE ==
[~2025-04-03] MED LIST changes: +DULO1CAP6 PO; +LISI40TA10 PO; -LISI40TA4 PO
== END ==
LOC: M RAD 11:15
PROVIDERS: ATTEND Pain Medicine Interventional Pain Medicine
DX: M48.061 Spinal stenosis, lumbar region without neurogenic claudication (principal)

== ENCOUNTER → 2025-05-18 | Outpatient (CLI) | payer MEDICARE | LOC: M WHC 11:20 | PROVIDERS: ATTEND Nurse Practitioner Family | DX: E04.2 Nontoxic multinodular goiter (principal) ==

== ENCOUNTER → 2025-06-06 | Outpatient (REF) | payer MEDICARE ==
[2025-06-06 18:42] LABS: ALT/SGPT 24.0 U/L (7.0-40); AST/SGOT 24.0 U/L (<34); CALCIUM LEVEL 10.8 MG/DL (8.3-10.6); CARBON DIOXIDE LEVEL 29.0 MMOL/L (20-31); CHLORIDE LEVEL 105.0 MMOL/L (98-107); CHOLESTEROL LEVEL 208.0 MG/DL (<200); CHOLESTEROL RISK RATIO 3.54 (<5); CREATININE FOR GFR 0.71 MG/DL (0.55-1.30); GLOMERULAR FILTRATION RATE 88.6 (>39); LDL CHOLESTEROL 118.6 MG/DL (<100); NON-HDL-C 149.4 MG/DL; POTASSIUM SERUM 4.3 MMOL/L (3.5-5.1); SODIUM LEVEL 143.0 MMOL/L (136-145); TRIGLYCERIDES LEVEL 154.0 MG/DL (<150)
[2025-06-06 18:45] LABS: BASO # 0.1 10^3/uL (0.0-0.2); BASO % 1.4 % (0.0-1.0); EOS # 0.2 10^3/uL (0.0-0.5); EOS % 3.7 % (0.0-3.0); LYMPH # 1.8 10^3/uL (1.5-5.0); LYMPH % 27.6 % (24.0-44.0); MONO # 0.5 10^3/uL (0.0-0.8); MONO % 7.5 % (2.0-8.0); NEUTROPHILS # 3.9 10^3/uL (1.5-8.5); NEUTROPHILS % 59.5 % (36.0-66.0); PLATELET COUNT, AUTOMATED 362 10^3/uL (150-450)
[2025-06-06 18:46] LABS: FREE T4 1.23 NG/DL (0.89-1.76)
[2025-06-06 19:33] LABS: ESTIMATED AVERAGE GLUCOSE 120.0 MG/DL (60-110)
== END ==
LOC: M SFHCCLAY 11:15
PROVIDERS: ATTEND Nurse Practitioner Family
DX: E78.5 Hyperlipidemia, unspecified (principal); F33.1 Major depressive disorder, recurrent, moderate; I10 Essential (primary) hypertension; E03.9 Hypothyroidism, unspecified; E55.9 Vitamin D deficiency, unspecified; E04.1 Nontoxic single thyroid nodule; Z86.711 Personal history of pulmonary embolism; M48.062 Spinal stenosis, lumbar region with neurogenic claudication; J44.9 Chronic obstructive pulmonary disease, unspecified; K59.00 Constipation, unspecified; F41.9 Anxiety disorder, unspecified; Z79.899 Other long term (current) drug therapy

== ENCOUNTER → 2025-06-06 | Outpatient (CLI) | payer MEDICARE | LOC: M CLY 11:43 | PROVIDERS: ATTEND Nurse Practitioner Family | DX: S99.922S Unspecified injury of left foot, sequela (principal); X58.XXXS Exposure to other specified factors, sequela; Y92.9 Unspecified place or not applicable; Y93.9 Activity, unspecified; Y99.9 Unspecified external cause status ==

== ENCOUNTER → 2025-06-13 | Outpatient (CLI) | payer MEDICARE | LOC: M RAD 14:42 | PROVIDERS: ATTEND Internal Medicine Pulmonary Disease | DX: Z87.891 Personal history of nicotine dependence (principal) ==

== ENCOUNTER → 2025-06-20 | Outpatient (CLI) | payer MEDICARE ==
[~2025-06-20] MED LIST changes: +LIDOCAINE 1% MDV 20 ML VIAL SC ONE; +methylPREDNISolone SUSP 40 MG/ML 1 ML VIAL IB ONE
== END ==
LOC: M IRPRO 13:11
PROVIDERS: ATTEND Orthopaedic Surgery
DX: M70.62 Trochanteric bursitis, left hip (principal); M70.61 Trochanteric bursitis, right hip

== ENCOUNTER → 2025-07-02 | Outpatient (CLI) | payer MEDICARE ==
[~2025-07-02] MED LIST changes: -LIDOCAINE 1% MDV 20 ML VIAL SC ONE; -methylPREDNISolone SUSP 40 MG/ML 1 ML VIAL IB ONE
== END ==
LOC: M SOG 07:26
PROVIDERS: ATTEND Orthopaedic Surgery
DX: M25.551 Pain in right hip (principal); M25.552 Pain in left hip

== ENCOUNTER → 2025-07-12 | Outpatient (CLI) | payer MEDICARE | LOC: M SOG 07:27 | PROVIDERS: ATTEND Orthopaedic Surgery | DX: M25.551 Pain in right hip (principal); M25.552 Pain in left hip; Z53.9 Procedure and treatment not carried out, unspecified reason ==

== ENCOUNTER → 2025-07-20 | Outpatient (CLI) | payer MEDICARE | LOC: M SOG 07:36 | PROVIDERS: ATTEND Orthopaedic Surgery | DX: M25.551 Pain in right hip (principal); M25.552 Pain in left hip; Z53.9 Procedure and treatment not carried out, unspecified reason ==

== ENCOUNTER 2025-08-20 14:59 | Emergency (ER) | payer MEDICARE ==
[~2025-08-20 14:59] MED LIST changes: +DOCU-215 PO; -DSS100CA PO
[2025-08-20 15:34] LABS: BASO # 0.1 10^3/uL (0.0-0.2); BASO % 0.7 % (0.0-1.0); EOS # 0.2 10^3/uL (0.0-0.5); EOS % 3.1 % (0.0-3.0); LYMPH # 1.4 10^3/uL (1.5-5.0); LYMPH % 20.3 % (24.0-44.0); MONO # 0.6 10^3/uL (0.0-0.8); MONO % 9.0 % (2.0-8.0); NEUTROPHILS # 4.7 10^3/uL (1.5-8.5); NEUTROPHILS % 66.6 % (36.0-66.0); PLATELET COUNT, AUTOMATED 314 10^3/uL (150-450)
[2025-08-20 16:09] LABS: ALT/SGPT 21 U/L (7.0-40); AST/SGOT 31 U/L (<34); CALCIUM LEVEL 8.9 MG/DL (8.3-10.6); CARBON DIOXIDE LEVEL 29 MMOL/L (20-31); CHLORIDE LEVEL 106 MMOL/L (98-107); CREATININE FOR GFR 0.87 MG/DL (0.55-1.30); GLOMERULAR FILTRATION RATE 69.0 (>39); POTASSIUM SERUM 4.5 MMOL/L (3.5-5.1); SODIUM LEVEL 142 MMOL/L (136-145)
[2025-08-20] MEDS ORDERED: ISOVUE-370 76% 100 ML VIAL As Ordered ONE (17:41)
[2025-08-20] MEDS ORDERED: PRED10TA2 PO (19:31)
[2025-08-20 19:33] VITALS: BP 135/64; TEMP 96.9; O2SAT 98
[2025-08-20] MEDS: predniSONE 20 MG TAB PO ONE (19:41)
== END 2025-08-20 19:45 | disposition home or self-care (01) ==
LOC: EDBD 14:59 → M ED 14:59
DX: J44.1 Chronic obstructive pulmonary disease with (acute) exacerbation (principal); I10 Essential (primary) hypertension; E78.5 Hyperlipidemia, unspecified; K21.9 Gastro-esophageal reflux disease without esophagitis; E03.9 Hypothyroidism, unspecified; F32.9 Major depressive disorder, single episode, unspecified; Z86.711 Personal history of pulmonary embolism; Z87.891 Personal history of nicotine dependence; Z88.1 Allergy status to other antibiotic agents; Z88.8 Allergy status to other drugs, medicaments and biological substances; Z79.52 Long term (current) use of systemic steroids; Z79.899 Other long term (current) drug therapy
CPT/HCPCS: 36415; 71045; 71275; 80048; 80076; 85025; 87486; 87581; 87633; 87798; 93005; 93041; 94760; 99285; J7512; Q9967

== ENCOUNTER → 2025-09-03 | Outpatient (CLI) | payer MEDICARE ==
[~2025-09-03] MED LIST changes: +PRED10TA2 PO
== END ==
LOC: M CLY 10:59
PROVIDERS: ATTEND Nurse Practitioner Family
DX: R07.89 Other chest pain (principal); J98.11 Atelectasis